=== PATIENT | male | born 1940 | race Caucasian/White ===

== ENCOUNTER 2024-12-09 14:06 | Outpatient (CLI) | payer MEDICARE, SELFPAY ==
[2024-12-09 15:15] LABS: Anion Gap 14.0 mEq/L (5-15); Blood Urea Nitrogen 43 mg/dl (9-20); Calcium 9.2 mg/dl (8.4-10.2); Carbon Dioxide 18 mmol/L (22.0-30.0); Chloride 106 mmol/L (98-107); Creatinine,Serum 3.40 mg/dl (0.66-1.25); Estimated Glomerular Filt Rate 17 ml/min (>60); GFR (African American) 21 ML/MIN (>60); Glucose 121 mg/dl (74-100); Magnesium 1.7 mg/dl (1.6-2.3); Potassium 4.0 mmoL/L (3.5-5.1); Sodium 134 mmol/L (136-145)
== END 2024-12-09 23:59 | disposition home or self-care (01) ==
LOC: LAB 14:07
PROVIDERS: PCP Family Medicine; Visit Provider Internal Medicine
DX: I10 Essential (primary) hypertension (principal)
CPT/HCPCS: 36415; 80048; 83735

== ENCOUNTER 2024-12-22 11:29 | Outpatient (CLI) | payer MEDICARE, SELFPAY ==
--- NOTE | 2024-12-22 | CA_ITS ---
APPROVED REPORT Exam: Pharmacologic Technologist: Amina Aleln Ht: 6 ft 0 in Wt: 189 lbs BSA: 2.08 m2 HR: 67 bpm BP: 184/70 mmHg Stress Test Details Test: Lexiscan HR Resting HR: 67 bpm Max Heart Rate (APMHR): 137.357457 bpm Max HR Achieved: 93 bpm Target HR (85% APMHR): 116.873528 bpm % of APMHR: 67.88 Recovery HR: 86 bpm BP Resting BP: 184.0/70.0 mmHg Max BP: 186.0/80.0 mmHg Recovery BP: 180.0/79.0 mmHg ECG Resting ECG: Normal sinus rhythm Stress ECG Conclusion Symptoms: None Arrhythmias/Ectopy: PAC's, PVC's ST-T Changes: < 1.[address] segment changes Conclusion: Non-diagnostic Lexiscan stress. Electronically signed by : Genie Tian MD 12/25/2024 15:35:21
--- OUTSIDE RECORDS SUMMARY | 2024-12-22 11:31 | XMS_ITS | Continuity of Care Document ---
Author Organization [facility] Address [address] [place] [address] Assessment No assessment recorded. Plan of Treatment Reminders Order Date Submit Date Provider Last Modified By Organization Details Last Modified Time Details Appointments ESTABLISH ED PT 30 2024 10:00A M Marcelina Longo APRN Not available Not available Not available Lab None recorded. Referral None recorded. Procedures None recorded. Surgeries None recorded. Imaging XR, chest, 2 view 2024 025 [facility] Sander Setter, [address] [place] [address] , [place], [address], 11/24/2024 15:34:09 Medication Orders None recorded. Patient TargetsNo targets recorded. Patient Instructions Encounter Date Encounter Id Patient Instructions Last Modified By Organization Details Last Modified Time 11/24/2024 [id number] When You Want to Lose Weight: Care Instructions [email or web address] Not available 11/24/2024 13:27:57 Reason for Referral None Reported. Results Created Date Observation Date Name Description Value Unit Range Abnormal Flag Note LastModifiedBy Organization Detail LastModifiedTime 11/25/19 25 XR, chest , 2 view No observ ation record ed. Ursa Sander Setter [address] [place] [address] , [place], [address], 11/24/2024 16:35:31 Result Notes None recorded. Problems Name Problem SNOMED Code Status Onset Date Resolution Date Notes Provider Name and Address Organization Details Recorded Time Essential hypertens ion 22075035 Active 2015 Not Available [facility] 3 11:37:22 Deep venous thrombosi s 001368914 Active 2015 Not Available [facility] 3 11:37:22 Type 2 diabetes mellitus 10472008 Completed 201505/23/2021 Marcelina Longo, [employer] [address], [place], [address] , [place] - [facility] 1 10:42:42 Hyperlipi demia 68361551 Active 2015 Not Available [facility] 3 11:37:22 Impotence Active 2015 Not Available [facility] 3 11:37:22 Long-term current use of anticoagu lant 600816215 Active 2015 Not Available [facility] 3 11:37:22 Obesity 184243483 Active 2015 Not Available [facility] 3 11:37:22 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 Not Available [facility] 3 11:37:22 Periphera l vascular disease 252516948 Active 2015 Not Available [facility] 3 11:37:22 Pulmonary embolism 58647037 Completed 201504/08/2016 Paula Gee [place], [place] - [facility] 6 13:01:47 Vitamin D deficienc y 41959894 Active 2020 Not Available [facility] 3 11:37:22 Hyperglyc emia due to type 2 diabetes mellitus 43735685503 9109 Active 2020 Not Available [facility] 3 11:37:22 Chronic kidney disease stage 3 388435523 Active 2020 Not Available [facility] 3 11:37:22 Chronic ki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 35303778229 5 Active 2020 Not Available [facility] 3 11:37:22 Mixed hyperlipi demia 794996324 Active 2020 Not Available [facility] 3 11:37:22 History of deep vein thrombosi s 702670870 Active 2020 Not Available [facility] 3 11:37:22 History of pulmonary embolus 839898115 Active 2020 Not Available [facility] 3 11:37:22 Benign essential hypertens ion 8152741 Active 2020 Not Available [facility] 3 11:37:22 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 Procedures Surgical History Date Name Laterality Status Provider Name and Address Organization Details Recorded Time 09/22/19 25 A1C level 8.0 to 9.0 completed Clive Sung [place] - [facility] 09/21/2024 14:59:34 05/19/20 24 Advance Care Planning completed Paula Hay [place] - [facility] 05/19/2024 12:54:25 05/19/20 24 Functional Status Assessed completed Paula Hay [place] [facility] 05/19/2024 12:54:25 01/21/20 24 Positive Microalbumin completed Clive Sung [place] - [facility] 01/21/2024 10:44:25 01/21/20 24 A1C level 6.9 and below completed Clive Sung [place] - [facility] 01/21/2024 10:48:27 10/22/19 24 A1C level 6.9 and below completed Clive Sung [place] - [facility] 10/22/2023 13:05:51 07/24/19 24 A1C level 8.0 to 9.0 completed Clive Sung [place] - [facility] 07/24/2023 11:56:27 04/08/20 23 A1C level 6.9 and below completed Clive Sung [place] - [facility] 04/08/2023 11:20:15 09/05/19 23 Medication Reconcilliation completed Paula Hay [place] [facility] 09/04/2022 13:11:20 06/13/19 23 A1C level 7.0 to 7.9 completed Clive Pineda [place] - [facility] 06/13/2022 11:10:06 03/06/20 22 A1C level 7.0 to 7.9 completed Clive Pineda [place] - [facility] 03/06/2022 13:11:24 12/04/19 22 A1C level 7.0 to 7.9 completed Clive Pineda [place] - [facility] 12/03/2021 14:19:16 11/29/19 22 Cerumen Removal completed Giovanni Glass MD [address], [place], [address] [place] - [facility] 11/28/2021 10:57:35 08/30/19 22 Positive Microalbumin completed Clive Pineda [place] - [facility] 08/29/2021 09:20:08 08/30/19 22 A1C level 7.0 to 7.9 completed Clive [place]ineda [place] - [facility] 08/29/2021 09:23:03 05/23/20 21 A1C level 7.0 to 7.9 completed Clive Pineda [place] - [facility] 05/23/2021 10:41:28 02/22/20 21 A1C level 7.0 to 7.9 completed Clive [place]ineda [place] [facility] 02/21/2021 08:38:20 11/03/19 21 A1C level 7.0 to 7.9 completed Myah [place] - [facility] 11/02/2020 13:15:09 08/25/19 21 Diastolic B/P less than 80 mm Hg completed Paula Gee [place] [facility] 08/24/2020 09:28:23 08/25/19 21 Systolic B/P 130-139 mm Hg completed Paula Gee [place] [facility] 08/24/2020 09:28:20 08/01/19 21 Diastolic B/P less than 80 mm Hg completed Myah [place] [facility] 08/01/2020 16:31:17 08/01/19 21 Systolic B/P 130-139 mm Hg completed [place]ah [place] [facility] 08/01/2020 16:31:11 08/01/19 21 A1C level 7.0 to 7.9 completed Myah [place] - [facility] 08/01/2020 16:34:05 07/26/19 21 Systolic B/P less than 130 mm Hg completed Paula Hay [place] [facility] 07/26/2020 09:04:40 07/26/19 21 Diastolic B/P less than 80 mm Hg completed Paula [place] [facility] 07/26/2020 09:04:45 05/25/20 20 Diastolic B/P less than 80 mm Hg completed Paula Hay [place] [facility] 05/25/2020 09:38:40 05/25/20 20 Systolic B/P 130-139 mm Hg completed Paula [place] [facility] 05/25/2020 09:38:35 04/18/20 20 Systolic B/P less than 130 mm Hg completed Myah [place] [facility] 04/18/2020 16:34:12 04/18/20 20 Diastolic B/P less than 80 mm Hg completed Myah [place] [facility] 04/18/2020 16:34:19 04/18/20 20 A1C level 7.0 to 7.9 completed Myahaljeo [place] - [facility] 04/18/2020 16:36:39 03/22/20 20 Systolic B/P less than 130 mm Hg completed Paula Hay [place] [facility] 03/22/2020 10:51:22 03/22/20 20 Diastolic B/P 80-89 mm Hg completed Paula [place] [facility] 03/22/2020 10:51:25 02/23/20 20 Systolic B/P less than 130 mm Hg completed Paula [place] [facility] 02/23/2020 10:56:58 02/23/20 20 Diastolic B/P less than 80 mm Hg completed Paula [place] [facility] 02/23/2020 10:57:03 01/20/20 20 Systolic B/P less than 130 mm Hg completed Paula Hay [place] [facility] 01/20/2020 13:22:19 01/20/20 20 Diastolic B/P less than 80 mm Hg completed Paula Hay [place] [facility] 01/20/2020 13:22:23 12/16/19 20 Systolic B/P less than 130 mm Hg completed Paula Hay [place] [facility] 12/16/2019 13:18:38 12/16/19 20 Diastolic B/P less than 80 mm Hg completed Paula Hay [place] [facility] 12/16/2019 13:18:42 11/17/19 20 Systolic B/P less than 130 mm Hg completed Paula Hay [facility] 11/17/2019 13:40:30 11/17/19 20 Diastolic B/P less than 80 mm Hg completed Paula Hay [facility] 11/17/2019 13:40:34 10/08/19 20 Systolic B/P less than 130 mm Hg completed Paulapita MARIEE [facility] 10/08/2019 13:43:56 10/08/19 20 Diastolic B/P less than 80 mm Hg completed Paula Hay [facility] 10/08/2019 13:44:01 09/08/19 20 Systolic B/P less than 130 mm Hg completed Paulapita MARIEE [facility] 09/08/2019 12:57:34 09/08/19 20 Diastolic B/P less than 80 mm Hg completed Paulapita MARIEE [facility] 09/08/2019 12:57:39 08/11/19 20 Systolic B/P less than 130 mm Hg completed Paulapita MARIEE [facility] 08/11/2019 13:09:51 08/11/19 20 Diastolic B/P 80-89 mm Hg completed Paulapita MARIEE [facility] 08/11/2019 13:09:55 06/10/19 20 Systolic B/P less than 130 mm Hg completed Paulapita MARIEE [facility] 06/10/2019 12:57:49 06/10/19 20 Diastolic B/P 80-89 mm Hg completed Paulapita MARIEE [facility] 06/10/2019 12:57:53 10/25/19 18 Advance Care Planning completed Corine Welch RN [address], [place], [address], [facility] 10/24/2017 08:56:49 Cataract Surgery completed Corine Welch RN [address], [place], [address], [facility] 10/24/2017 09:14:03 Imaging Results None recorded. Procedure Notes None recorded. Medical Equipment None Reported. Allergies No known drug allergies Medications Name Sig Start Date Stop Date Status Note LastModified by Organization Details LastModified Time furosemid e 40 mg tablet Take 1 tablet every day by oral route. active Not Available Not Available No t Available metformin 500 mg tablet take 2 tablets (1,000 mg) by oral route 2 times per day with morning and evening meals for 30 days 02/13 completed metformi n 500 mg oral tablet;R ecorded Status: Recorded on: 05/28/20 12 10:25AM; Disconti nued Status: Disconti nued on: 02/14/20 16 9:04AM;U ser: grossert ;Est. Completi on: 08/27/19 13 Not Available Not Available Not Available carvedilo l 25 mg tablet Take 1 tablet twice a day by oral route. 05/19 completed Not Available Not Available Not Available carvedilo l 12.5 mg tablet TAKE ONE TABLET BY MOUTH TWICE DAILY with food 08/18 completed Not Available Not Available Not Available Neurontin 300 mg capsule 1 - 2 tid for back pain 02/13 completed Neuronti n 300 mg oral capsule; Prescrib e Status: Prescrib ed on: 10/23/19 13 12:00AM; Disconti nued Status: Disconti nued on: 02/14/20 16 9:04AM;U ser: grossert ;Est. 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.52) ;Pharmac yVerifie d: 10/23/19 13 4:45PM Not Available Not Available Not Available aspirin 325 mg tablet take 1 tablet (325 mg) by oral route once daily 11/12 completed aspirin 325 mg oral tablet;R ecorded Status: Recorded on: 08/02/19 09 2:44PM;D iscontin ued Status: Disconti nued on: 11/13/19 12 9:59AM;U ser: keefk Not Available Not Available Not Available glyburide 5 mg tablet take 1 tablet (5 mg) by oral route 2 times per day before meals 05/22 completed glyburid e 5 mg oral tablet;R ecorded Status: Recorded on: 02/14/20 16 9:04AM;U ser: haym Not Available Not Available Not Available Glucovanc e 2.5 mg-500 mg tablet take 1 tablet by oral route 2 times per day with meals for 90 days 01/16 completed Glucovan ce 2.5-500 mg oral tablet;R ecorded Status: Recorded on: 01/11/20 11 3:55PM;D iscontin ued Status: Disconti nued on: 01/17/20 11 10:04AM; User: clover;Est . Completi on: 07/09/19 12 Not Available Not Available Not Available clarithro mycin 500 mg tablet take 1 tablet (500 mg) by oral route 2 times per day for 10 days 02/03 completed clarithr omycin 500 mg oral tablet;R ecorded Status: Recorded on: 06/14/19 09 3:27PM;D iscontin ued Status: Disconti nued on: 02/04/20 09 12:54PM; User: tiffanie De La OEst. Completi on: 06/24/19 09;Print ed: 06/14/19 09 Not Available Not Available Not Available Glucovanc e 5 mg-500 mg tablet take 1 tablet by oral route 2 times per day with meals for 30 days 01/10 completed Glucovan ce 5-500 mg oral tablet;R ecorded Status: Recorded on: 01/10/20 11 1:39PM;D iscontin ued Status: Disconti nued on: 01/11/20 11 3:55PM;U ser: clover;Est . Completi on: 04/09/20 11 Not Available Not Available Not Available Keflex 500 mg capsule take 1 capsule (500 mg) by oral route every 12 hours for 10 days 05/12 completed Keflex 500 mg oral capsule; Recorded Status: Recorded on: 04/18/20 08 11:01AM; Disconti nued Status: Disconti nued on: 05/12/20 08 3:46PM;U ser: rodoEs t. Completi on: 04/28/20 08;Print ed: 04/18/20 08 Not Available Not Available Not Available Avelox 400 mg tablet take 1 tablet (400 mg) by oral route once daily for 10 days 10/15 completed Avelox 400 mg oral tablet;R ecorded Status: Recorded on: 10/16/19 12 9:37AM;D iscontin ued Status: Disconti nued on: 10/16/19 12 11:38AM; User: [email or web address] ;Est. Grettai on: 11/05/19 12;Indic ation: Bronchit is, Acute - (466.0); Printed: 10/16/19 12 Not Available Not Available Not Available glipizide 10 mg tablet TAKE ONE TABLET BY MOUTH TWICE DAILY with meals 2024 active Not Available Not Available Not Avai lable prednison e 20 mg tablet take 1 tablet (20 mg) by oral route once daily for 5 days 08/03 completed predniso ne 20 mg oral tablet;R ecorded Status: Recorded on: 06/11/19 11 1:37PM;D iscontin ued Status: Disconti nued on: 08/03/19 11 9:03AM;U ser: luis alberto; Est. Completi on: 06/16/19 11;Print ed: 06/11/19 11 Not Available Not Available Not Available lovastati n 40 mg tablet TAKE ONE TABLET BY MOUTH EVERY EVENING WITH FOOD 2023 active Not Available Not Available Not Avai lable AndroGel 1 % (25 mg/2.5 gram) transderm al gel packet 4 pumps daily 05/12 completed AndroGel 1 % (25 mg/2.5gr am) transder mal gel in packet;R ecorded Status: Recorded on: 03/12/20 08 10:03PM; Disconti nued Status: Disconti nued on: 05/12/20 08 3:46PM;U ser: keatinga Not Available Not Available Not Available Zithromax Z-Jonah 250 mg tablet take 2 tablets (500 mg) by oral route once daily for 3 days 11/24 completed Not Available Not Available Not Available Flonase 50 mcg/actua tion nasal spray,william pension inhale 1 spray (50 mcg) in each nostril by intranas al route 2 times per day for 30 days 02/13 completed Flonase 50 mcg/actu ation nasal spray,savage spension ;Recorde d Status: Recorded on: 09/16/19 14 3:25PM;D iscontin ued Status: Disconti nued on: 02/14/20 16 9:04AM;U ser: haym;Est . Completi on: 03/14/20 14 Not Available Not Available Not Available hydralazi ne 25 mg tablet Take 1 tablet 3 times a day by oral route. 08/18 completed Not Available Not Available Not Available metronida zole 500 mg tablet Take 1 tablet every 6 hours by oral route. 08/10 completed Not Available Not Available Not Available ciproflox acin 500 mg tablet take 1 tablet (500 mg) by oral route 2 times per day for 10 days 12/19 completed Not Available Not Available Not Available omeprazol e 40 mg capsule,d elayed release TAKE ONE CAPSULE BY MOUTH EVERY DAY 05/19 completed Not Available Not Available Not Available aspirin 81 mg tablet,de layed release Take 81 mg by oral route. 05/19 completed Not Available Not Available Not Available ondansetr on 8 mg disintegr ating tablet Place 1 tablet every 6-8 hours by translin gual route as needed. 2019 active Not Available Not Available Not Avai lable Lipitor 20 mg tablet take 1 tablet (20 mg) by oral route once daily for 90 days 07/24 completed Lipitor 20 mg oral tablet;R ecorded Status: Recorded on: 07/24/19 12 9:16AM;D iscontin ued Status: Disconti nued on: 07/24/19 12 4:18PM;U ser: haym;Est . Completi on: 01/20/20 12 Not Available Not Available Not Available warfarin 4 mg tablet TAKE ONE TABLET BY MOUTH EVERY DAY 09/04 completed Not Available Not Available Not Available Macrobid 100 mg capsule Take 1 capsule every 12 hours by oral route. 11/16 completed Not Available Not Available Not Available Zanaflex 4 mg tablet take 1 tablet (4 mg) by oral route every 8 hours as needed not to exceed 3 doses in 24 hours for 10 days 02/13 completed Zanaflex 4 mg oral tablet;P rescribe Status: Prescrib ed on: 10/18/19 16 10:20AM; Disconti nued Status: Disconti nued on: 02/14/20 16 9:04AM;U ser: grossert ;Est. Completi on: 12/17/19 16;Indic ation: Muscle Spasm - (13.7288 50);Phar Raquel fied: 10/18/19 16 10:20AM Not Available Not Available Not Available tamsulosi n 0.4 mg capsule TAKE ONE CAPSULE BY MOUTH ONCE DAILY 30 minutes followin g THE same meal each DAY active Not Available Not Available No t Available baclofen 10 mg tablet take 1 tablet (10 mg) by oral route 4 times per day for 30 days 02/13 completed baclofen 10 mg oral tablet;R ecorded Status: Recorded on: 10/03/19 13 4:04PM;D iscontin ued Status: Disconti nued on: 02/14/20 16 9:04AM;U ser: clover;Est . Completi on: 11/02/19 13 Not Available Not Available Not Available amlodipin e 10 mg tablet Take 1 tablet every day by oral route. 12/14 completed BP was running low. Not Available Not Available Not Available metformin 1,000 mg tablet take 1 tablet by oral route 2 times a day for 30 days 09/05 completed metformi n 1,000 mg oral tablet;R ecorded Status: Recorded on: 07/03/19 12 2:24PM;D iscontin ued Status: Disconti nued on: 09/06/19 12 11:49AM; User: clover;Est . Completi on: 12/30/19 12;Indic ation: Type 2 Diabetes Mellitus - ( 00) Not Available Not Available Not Available Hyzaar 100 mg-25 mg tablet 1 po qd 07/18 completed Hyzaar 100-25 mg oral tablet;P rescribe Status: Prescrib ed on: 01/08/20 14 4:26PM;D iscontin ued Status: Disconti nued on: 07/18/19 15 1:27PM;U ser: earlywin ec;Est. Completi on: 07/06/19 15;Pharm acyVsunitaf ied: 01/08/20 14 4:26PM Not Available Not Available Not Available triamcino lone acetonide 0.1 % topical ointment APPLY A THIN LAYER TO THE AFFECTED AREA(S) BY TOPICAL ROUTE 2 TIMES PER DAY as needed 2024 active Not Available Not Available Not Avai lable clotrimaz ole-betam ethasone 1 %-0.05 % topical cream APPLY TO THE AFFECTED AND SURROUND ING AREAS OF SKIN BY TOPICAL ROUTE 2 TIMES PER DAY IN THE MORNING AND EVENING FOR 2 WEEKS 05/19 completed Not Available Not Available Not Available nitroglyc desiree 0.4 mg sublingua l tablet DISSOLVE 1 TABLET UNDER THE TONGUE EVERY 5 MINUTES NEEDED FOR CHEST PAIN. DO NOT EXCEED A TOTAL OF 3 DOSES IN 15 MINUTES. 2024 active Not Available Not Available Not Avai lable Levaquin 500 mg tablet take 1 tablet (500 mg) by oral route once daily for 10 days 07/02 completed Not Available Not Available Not Available Viagra 100 mg tablet take 1 tablet (100 mg) by oral route once daily as needed approxim ately 1 hour before sexual activity for 10 days 11/12 completed Viagra 100 mg oral tablet;R ecorded Status: Recorded on: 08/31/19 10 11:19AM; Disconti nued Status: Disconti nued on: 11/13/19 12 9:59AM;U ser: grossert ;Est. Completi on: 12/29/19 10;Indic ation: Erectile Dysfunct ion - (10.6078 40);Prin hola: 08/31/19 10 Not Available Not Available Not Available Nasonex 50 mcg/actua tion [place] 1 sniff bilat bid 09/15 completed Nasonex 50 mcg/actu ation nasal spray,no n-aeroso l;Prescr yvonne Status: Prescrib ed on: 09/16/19 14 11:17AM; Disconti nued Status: Disconti nued on: 09/16/19 14 3:25PM;U ser: grossert ;Est. Completi on: 03/14/20 14;Indic ation: Atopic Rhinitis - (4779 );Phar Raquel fied: 09/16/19 14 11:17AM Not Available Not Available Not Available Vitamin D2 1,250 mcg (50,000 unit) capsule TAKE ONE CAPSULE BY MOUTH twice a WEEK 05/19 completed Not Available Not Available Not Available dexametha sone sodium phosphate 10 mg/mL injection solution Take 1 mL every day by injectio n route for 1 day. 11/24 completed Not Available Not Available Not Available amoxicill in 875 mg-potass ium clavulana te 125 mg tablet take 1 tablet by oral route every 12 hours for 10 days 10/10 completed Not Available Not Available Not Available neomycin- polymyxin -hydrocor t 3.5 mg-10,000 unit/mL-1 % ear drops,william p instill 4 drops into affected ear(s) by otic route 3 times per day for 10 days 06/11 completed Not Available Not Available Not Available Bactrim DS 800 mg-160 mg tablet take 1 tablet by oral route 2 times per day for 10days 01/10 completed Not Available Not Available Not Available TobraDex 0.3 %-0.1 % eye drops,william pension instill 1 drop into affected eye(s) by ophthalm ic route every 6 hours 08/30 completed TobraDex 0.3-0.1 % ophthalm ic drops,savage spension ;Recorde d Status: Recorded on: 07/10/19 10 9:33AM;D iscontin ued Status: Disconti nued on: 08/31/19 10 11:02AM; User: james;In 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 04/18 completed Not Available Not Available Not Available Avandamet 2 mg-500 mg tablet take 1 tablet by oral route 2 times per day with meals for 30 days 01/09 completed Avandame t 2-500 mg oral tablet;R ecorded Status: Recorded on: 12/27/19 11 3:19PM;D iscontin ued Status: Disconti nued on: 01/10/20 11 9:10AM;U ser: grossert ;Est. Completi on: 06/24/19 12;Print ed: 12/27/19 11 Not Available Not Available Not Available Avodart 0.5 mg capsule take 1 capsule (0.5 mg) by oral route once daily for 30 days 04/18 completed Avodart 0.5 mg oral capsule; Recorded Status: Recorded on: 04/18/20 08 10:59AM; Disconti nued Status: Disconti nued on: 04/18/20 08 11:05AM; User: Tima tSam Completi on: 07/17/19 09;Indic ation: Symptoma tic Prostati c Hypertro phy - (10.6000 01);Prin hola: 04/18/20 08 Not Available Not Available Not Available Novolog FlexPen U-100 Insulin aspart 100 unit/mL (3 mL) subcutane ous Inject 6 units twice a day by subcutan eous route. 08/10 completed Not Available Not Available Not Available Allergy Relief (loratadi ne) 10 mg tablet TAKE ONE TABLET BY MOUTH ONCE DAILY 2024 active Not Available Not Available Not Avai lable fenofibra te 160 mg tablet TAKE ONE TABLET BY MOUTH EVERY DAY 11/24 completed Not Available Not Available Not Available Actoplus MET 15 mg-500 mg tablet take 1 tablet by oral route 2 times per day for 90 days 01/09 completed Actoplus MET 15-500 mg oral tablet;R ecorded Status: Recorded on: 01/10/20 11 9:10AM;D iscontin ued Status: Disconti nued on: 01/10/20 11 1:39PM;U ser: haym;Est . Completi on: 07/08/19 12 Not Available Not Available Not Available losartan 100 mg-hydroc hlorothia zide 12.5 mg tablet Take ONE tablet by MOUTH DAILY active Not Available Not Available No t Available Mucinex D 60 mg-600 mg tablet,ex tended release take 1 tablet by oral route every 12 hours as needed for 10 days 08/03 completed Mucinex D 60-600 mg oral tablet extended release 12 hr;Recor ded Status: Recorded on: 12/29/19 10 3:20PM;D iscontin ued Status: Disconti nued on: 08/03/19 11 9:03AM;U ser: grossert ;Est. Completi on: 02/07/20 10;Print ed: 12/29/19 10 Not Available Not Available Not Available Levemir U-100 Insulin 100 unit/mL subcutane ous solution inject by subcutan eous route per prescrib er's instruct ions. Insulin dosing requires individu alizatio n. 04/22 completed Levemir 100 unit/mL subcutan eous solution ;Recorde d Status: Recorded on: 02/14/20 16 9:04AM;U ser: haym Not Available Not Available Not Available Januvia 100 mg tablet take 1 tablet (100 mg) by oral route once daily for 30 days 02/13 completed Januvia 100 mg oral tablet;R ecorded Status: Recorded on: 06/04/20 12 10:15AM; Disconti nued Status: Disconti nued on: 02/14/20 16 9:04AM;U ser: grossert ;Est. Completi on: 12/02/19 13;Indic ation: Type 2 Diabetes Mellitus - (032500 00);Prin hola: 06/04/20 12 Not Available Not Available Not Available Lantus Solostar U-100 Insulin 100 unit/mL (3 mL) subcutane ous pen Inject 30 units every day by subcutan eous route at bedtime. active Not Available Not Available No t Available Vitamin D 2,000 unit capsule Take 2 capsules every day by oral route. active Not Available Not Available No t Available Vitamin D3 50 mcg (2,000 unit) capsule Take 1 capsule every day by oral route. 09/25 completed Not Available Not Available Not Available Xarelto 20 mg tablet TAKE ONE TABLET BY MOUTH EVERY DAY 2024 active Not Available Not Available Not Avai lable Victoza 2-Jonah 0.6 mg/0.1 mL (18 mg/3 mL) subcutane ous pen injector inject 0.2 millilit er (1.2 mg) by subcutan eous route once daily 04/18 completed Victoza 2-Jonah 0.6 mg/0.1 mL (18 mg/3 mL) subcutan eous pen injector ;Recorde d Status: Recorded on: 08/26/19 14 9:00AM;U ser: haym Not Available Not Available Not Available Bydureon 2 mg/0.65 mL subcutane ous pen injector Inject by subcutan eous route. 04/[address] ED BY DR[address] ROMAN Not Available Not Available Not Available Easy Comfort Pen Haskins 32 gauge x 5/32 USE DIRECTED DAILY 2021 active Not Available Not Available Not Avai lable Accu-Chek Guide test strips USE TO test blood sugar ONCE DAILY 2024 active Not Available Not Available Not Avai lable Ozempic 0.25 mg or 0.5 mg (2 mg/1.5 mL) subcutane ous pen injector Inject 0.5 mg every week by subcutan eous route as directed for 90 days. 01/02 completed Not Available Not Available Not Available Ozempic 1 mg/dose (4 mg/3 mL) subcutane ous pen injector INJECT 1mg UNDER hte SKIN EVERY WEEK 2024 active Not Available Not Available Not Avai lable Ozempic 2 mg/dose (8 mg/3 mL) subcutane ous pen injector Inject 2 mg every week by subcutan eous route. 10/21 completed Not Available Not Available Not Available Vitals Date Recorded Body height Body mass index (BMI) Body weight Body temperature Heart rate Oxygen saturation Oxygen saturation in Arterial blood by Pulse oximetry Respiratory rate Systolic And Diastolic Provider Name and Address Organization Details Last Updated DateTime 5 182.88 cm 25.8 kg/m2 75631.5 5 g 98.5 [degF] 100 /min 97 % 97 % 18 /min 110/60 mm[Hg] Paula [place] - [facility] 5 13:09:19 Social History Question Answer Notes LastModified by Organization Details LastModified Time Tobacco Smoking Status Former Smoker Paula sheridan [place] - [facility] 04/08/2016 13:03:41 Able To Swim? Yes Information not available 04/10/2016 Do You Have An Advance Directive? No Declines Info Information not available 10/24/2017 Do You Wear A Helmet When Biking? Yes Information not available 04/08/2016 Are You Blind Or Do You Have Difficulty Seeing? No Information not available 06/14/2016 What Is Your Level Of Caffeine Consumption? None Information not available 04/10/2016 How Much Tobacco Do You Chew? None Information not available 04/08/2016 In The 14 Days Before Symptom Onset, Have You Had Close Contact With A Laboratory-confi rmed COVID-19 While That Case Was Ill? No Information not available 11/13/2023 In The 14 Days Before Symptom Onset, Have You Had Close Contact With A Person Who Is Under Investigation For COVID-19 While That Person Was Ill? No Information not available 11/13/2023 Have You Been To An Area Known To Be High Risk For COVID-19? No Information not available 11/13/2023 Are You Deaf Or Do You Have Serious Difficulty Hearing? Yes Information not available 10/24/2017 What Type Of Diet Are You Following? DIABETIC Information not available 04/08/2016 Which Illicit Or Recreational Drugs Have You Used? No Information not available 04/08/2016 Have You Processed Blood Or Body Fluids From An Ebola Virus Disease Patient Without Appropriate PPE? No Information not available 11/13/2023 Do You Reside In Or Have You Traveled To An Area Where Ebola Virus Transmission Is Active? No Information not available 11/13/2023 What Is The Highest Grade Or Level Of School You Have Completed Or The Highest Degree You Have Received? [id number] Information not available 01/18/2021 Swimming/diving No Informati on not available 04/10/2016 Have There Been Any Changes To Your Family Or Social Situation? No Information not available 01/18/2021 What Is The Fluoride Status Of Your Home? Fluoridated Information not available 02/15/2021 When Did You Quit Smoking? 6-10yearssineric nunez Information not available 11/07/2016 Hard Of Hearing Or Deaf In One Or Both Ears? No Information not available 04/08/2016 Have You Recently Or Are You Planning To Travel To An Area With Zika Virus? No Information not available 11/13/2023 Single Or Multi-level Home/work? Single Level Home Information not available 10/24/2017 Legally Blind In One Or Both Eyes? No Information not available 04/08/2016 Live Alone Or With Others? With Others Information not available 04/08/2016 What Was The Date Of Your Most Recent Tobacco Screening? 11/24/2024 Information not available 11/24/2024 How Many Children Do You Have? 2 Information not available 04/10/2016 What Is Your Current Pack Years? 30ormorepaestefanyar s Information not available 03/06/2022 Do You Use Protection During Sex? No Information not available 04/08/2016 Do You Use Protection Against STDs? No Information not available 06/21/2021 What Is Your Relationship Status? Information not available 04/08/2016 Seat Belts Used Routinely Yes Information not available 04/08/2016 Are You Sexually Active? No Information not available 09/26/2022 Smoke Alarm In Home Yes Information not available 04/10/2016 Do You Have Smoke And Carbon Monoxide Detectors In Your Home? Yes Information not available 01/18/2021 At What Age Did You Start Smoking Tobacco? 16 Information not available 04/10/2016 Are You Passively Exposed To Smoke? No Information not available 04/10/2016 How Much Tobacco Do You Smoke? No Information not available 04/08/2016 General Stress Level Low Information not available 04/10/2016 Do You Use Sunscreen Routinely? No Information not available 04/10/2016 Has Tobacco Cessation Counseling Been Provided? No Information not available 08/18/2024 On What Date Was Tobacco Cessation Counseling Provided? 09/21/2024 Information not available 09/21/2024 How Many Years Have You Smoked Tobacco? 50 Information not available 04/10/2016 Do You Have Difficulty Walking Or Climbing Stairs? No Information not available 06/14/2016 What Contraceptive Method Was Reported At Start Of This Visit? None Information not available 06/21/2021 What Contraceptive Method Was Reported At End Of This Visit? None Information not available 06/21/2021 Do You Want To Talk About Contraception Or Prevention During Your Visit Today? No - I Do Not Want To Talk About Contraception Today Because I Am Here For Something Else Information not available 06/21/2021 What Is Your Reason For Having No Contraceptive Method At Start Of This Visit? Abstinence Information not available 01/02/2023 What Is Your Reason For Having No Contraceptive Method At End Of This Visit? Abstinence Information not available 01/02/2023 Sex: Male Functional Status Question Answer Note LastModified by Organizat ion Details LastModified Time How many times per week do you consume alcohol? Less than 1 time per week Information not available 09/04/2022 Do you or have you ever used smokeless tobacco? Never used smokeless tobacco Information not available 01/14/2019 Are you currently employed? No Information not available 04/08/2016 Do you have transportation difficulties? No Information not available 01/18/2021 Urinary incontinence assessment performed? Yes Information not available 10/24/2017 Are you able to care for yourself? Yes Information n ot available 04/08/2016 Do you have difficulty dressing or bathing? No Information not available 06/14/2016 Do you or have you ever used e-cigarettes or vape? Never used electronic cigarettes Information not available 01/14/2019 What is your exercise level? None Information not available 04/10/2016 Do you use any illicit or recreational drugs? No Information not available 01/18/2021 Do you or have you ever used any other forms of tobacco or nicotine? No Information not available 01/18/2021 What is your level of alcohol consumption? Occasional Information not available 04/08/2016 Are you able to walk? YESWOREST Information not available 07/12/2016 Do you have difficulty doing errands alone? No Information not available 06/14/2016 What is your occupation? Retired Information not available 04/08/2016 Mental Status Question Answer Note LastModified by Organizat ion Details LastModified Time Do you feel stressed (tense, restless, nervous, or anxious, or unable to sleep at night)? [id number] Information not available 01/18/2021 Do you have difficulty concentrating, remembering or making decisions? No Information no t available 06/14/2016 Family History Relationship Description Onset Age of this Age Resolved Age Notes LastModified by Organization Details LastModified Time Maternal Grandfather Type 2 diabetes mellitus Not available 2015 13:03:02 Maternal Grandmother Type 2 diabetes mellitus Not available 2015 13:03:02 Paternal Grandmother Type 2 diabetes mellitus Not available 2015 13:03:02 Father Myocardial infarction Not available 04/08 13:03:19 Paternal Uncle Myocardial infarction Not available 04/08 13:03:19 Medical History Condition Response Pancreatitis N Coronary Artery Disease N Other N Gout N Atrial Fibrillation N congenital heart disease N Blood Diseases N Kidney Stones N Hyperthyroidism N Blood Transfusion N Rheumatoid arthritis N Erectile Dysfunction Y amputation N Skin Lesions N COPD N Depression N Pneumonia N Incontinence N Murmur N Edema N Alzheimer's Disease N Migraine Headaches N Tobacco Abuse N Anxiety Disorder N Hemorrhoids N Muscle, Joint, or Bone Problems N Obesity Y Vision or Eye Problems N Arthritis N Restless Leg Syndrome N Polyps N Infertility N Mental Disorder N Carpal Tunnel N Acid Reflux (GERD) N Cancer N Varicosities N Stroke N Tendonitis N Crohn's Disease N Hypercholesterolemia N Skin Cancer N Headaches N Fibromyalgia N Anal Fissure N Irritable Bowel Syndrome N Kidney Disease N Heart Problems N Ear or Hearing Problems N Hospitalizations N Gallstones N Kidney or Bladder Problems N Goiter N Acne N Skin Problems N Eating Disorder N Moser's Esophagus N Hypertriglyceridemia N MRSA exposure N Constipation N Embolism N Vitamin B12 Deficiency N Deviated Septum N Tuberculosis N AIDS/HIV N Myocardial Infarction N Asthma N Mitral Valve Disorders N Vertigo N Hepatitis N Thyroid Cancer N Neuropathy N Pulmonary Embolism Y History of DVT Y Herniated Disc N Chronic Ear Infections N Chicken Pox N Autism Spectrum Disorder (ASD) N Von Willebrands Disease N Thrombophilias N Breast Cancer N Hernia N Plantar Fasciitis N Hospital Admission Other Than N Hypothyroidism N Lung Disease N Defects or Inherited Disease N Developmental or Behavioral Disorders N Breast Problem N Difficulty Swallowing N Ovarian Cyst N Anesthesia Complications N Testosterone Deficiency N Meniere's disease N Head Injury/Concussion N Interstitial Cystitis N Congenital Anomalies N Hypoglycemia N Blood clot N Vitamin D Deficiency N Cellulitis N Endometriosis N Fracture N Bladder or Kidney Problems N Liver Disease N Panic Disorder N Schizophrenia N Concussion N Spina Bifida N Allergies/Hayfever N Osteoarthritis N Parkinson's Disease N Disc Protrusion N STI N Esophagitis N Angina N Thyroid Problems N GI Problems N ADD/ADHD N Anemia N Multiple Sclerosis N Abnormal PAP N Lumbago N Mental Illness N Psychiatric Illness N Diabetes Y Ovarian Cancer N Bedwetting N Degenerative Disc Disease N Seizures/Epilepsy N Congestive Heart Failure (CHF) N Hyperlipidemia Y Syncope N Insomnia N Eczema N Abuse/Domestic Violence N Attention Deficient Disorder N Diverticulitis N Dementia N Ulcerative colitis N Cerebrovascular Disease N Depression N Guillain-[place] N Sleep Apnea N Aneurysm N Bronchitis N Heart Disease N Suicidal Ideation N Pre-Eclampsia N Hypertension Y Osteoporosis N Immunizations Vaccine Type Date Status Note Provider Nam e and Address Organization Details Recorded Time COVID-19, mRNA, LNP-S, PF, 100 mcg/0.5mL dose or 50 mcg/0.25mL dose 1 completed Radha Whittaker [place], [place] - [facility] 05/26/2024 10:16:32 COVID-19, mRNA, LNP-S, PF, 100 mcg/0.5mL dose or 50 mcg/0.25mL dose 1 completed Radha Whittaker [place], [place] - [facility] 05/26/2024 10:16:32 Influenza, split virus, trivalent, PF 2 completed Radha Whittaker [facility] 05/26/2024 10:16:32 Influenza, high-dose, quadrivalent, PF 0 completed Shahnaz Herman, [employer] [address], [place], [address], [place] - [facility] 03/14/2020 16:08:39 Influenza, high-dose, quadrivalent, PF 1 completed Giovanni Glass MD [address], [place], [address], [place] - [facility] 03/21/2021 14:31:50 influenza, unspecified formulation 0 completed Not Available [facility] 02/01/2023 11:37:23 influenza, unspecified formulation 1 completed Not Available [facility] 02/01/2023 11:37:23 influenza, unspecified formulation 2 [place] [facility] 05/26/2024 10:16:32 influenza, unspecified formulation 3 completed Not Available [facility] 02/01/2023 11:37:23 influenza, unspecified formulation 4 completed Not Available [facility] 02/01/2023 11:37:23 influenza, unspecified formulation 5 completed Not Available [facility] 02/01/2023 11:37:23 influenza, unspecified formulation 8 completed Not Available [facility] 02/01/2023 11:37:23 influenza, unspecified formulation 9 completed Not Available [facility] 02/01/2023 11:37:23 Influenza, split virus, quadrivalent, preservative 7 completed Not Available [facility] 06/26/2019 03:54:42 COVID-19, mRNA, LNP-S, PF, 100 mcg/0.5mL dose or 50 mcg/0.25mL dose 2 completed Giovanni Glass MD [address], [place], [address], [place] - [facility] 06/21/2021 11:12:07 Influenza, high-dose, quadrivalent, PF 2 completed Marcelina Longo, [employer] [address], [place], [address], [place] - [facility] 03/06/2022 13:31:11 Influenza, high-dose, quadrivalent, PF 3 completed Paula [place], [place] - [facility] 03/13/2023 09:48:17 Influenza, split virus, quadrivalent, preservative 6 completed Not Available [facility] 02/01/2023 11:37:23 zoster live 9 completed Not Available [facility] 02/01/2023 11:37:23 Influenza, high-dose, trivalent, PF 4 completed Debra Barajas MD [address], [place], [address], [place] - [facility] 03/09/2024 15:47:29 Tdap 4 completed Paula sheridan, [place] - [facility] 05/19/2024 16:57:05 Pneumococcal conjugate PCV20, polysaccharide NHP307 conjugate, adjuvant, PF 4 completed Paula [place], [place] - [facility] 05/19/2024 16:57:56 Influenza, high-dose, trivalent, PF 8 completed Not Available [facility] 06/26/2019 03:55:10 SARS-COV-2 (COVID-19) vaccine, UNSPECIFIED 1 completed Radha sheridan, [place] - [facility] 05/26/2024 10:16:32 SARS-COV-2 (COVID-19) vaccine, UNSPECIFIED 1 completed Radha [place], [place] - [facility] 05/26/2024 10:16:32 Influenza, high-dose, trivalent, PF 9 completed Not Available [facility] 06/26/2019 03:56:04 Past Encounters Encounter ID Performer Location Encounter Start Date Encounter Closed Date Diagnosis/Indication Diagnosis SNOMED-CT Code Diagnosis ICD10 Code Diagnosis Note [id number] Marcelina Longo APRN [address] [place] [address] 11/09/2024 14:16:39 11/09/2024 15:37:06 Hyperglycemia due to type 2 diabetes mellitus 7937928692 36228 E11.65 Benign ess ential hypertension 3137638 I10 Obesity 758107279 E66.9 Peripheral vascular disease 729640111 I73.9 Body mass index 25-29 - overweight 912216928 Z68.25 Peripheral neuropathy due to type 2 diabetes mellitus 4226288770 107 E11.42 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 5596173281 05 E11.22 Mixed hyperlipidemia 267 278759 E78.2 History of deep vein thrombosis 610232327 Z86.718 History of pulmonary embolus 310628300 Z86.711 Vitamin D deficiency 347 62593 E55.9 Iron defic iency anemia 56567083 D50.9 Prostate s pecific antigen above reference range 545582106 R97.20 Dizziness 593085715 R42 [id number] Giovanni Glass MD [address] 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 21 Hyperglyce nhan due to type 2 diabetes mellitus 9150796704 73215 E11.65 Vitamin D deficiency 347 92213 E55.9 Essential hypertension 91462923 I10 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 9490626350 05 E11.22 Hyperlipidemia 34600211 E78.5 Dyspnea on exertion 6084 5006 R06.09 Overweight in adulthood with body mass index of 25 or more but less than 30 070935647 Z68.25 Health Concerns Section Related Observation LastModified by Organization Detai ls LastModified Time None Recorded Concern Status LastModified by Organization Details LastModified Time None Recorded Payers Encounter Date Sequence Insurance Name Policy Number Policy Mcintyre Covered Member ID Mcintyre Member ID Guarantor Name 11/24/2024 1 [employer] (MEDICARE REPLACEMENT/A DVANTAGE - PPO) Owen Salazar [id number] Owen Salazar Notes Date Note Type Note Provider Name and Address Organization Details Recorded Time 11/24/2024 text/html C/O dyspnea with exertion. No chest pain, pressure, heaviness. Had abnormal CXR years ago and wants repeat. Dr. Pickard wanted to send to [place] for ht cath but he declined. Giovanni Glass MD [facility] [address], [place], [address], [place] - [facility] 11/24/2024 13:29:21
--- OUTSIDE RECORDS SUMMARY | 2024-12-22 11:31 | XMS_ITS | Data Portability ---
Author Organization [facility] Address [address] [place] [address] Assessment No assessment recorded. Plan of Treatment Reminders Order Date Submit Date Provider Last Modified By Organization Details Last Modified Time Details Appointments None recorde d. Lab None recorde d. Referral None recorde d. Procedures None recorde d. Surgeries None recorde d. Imaging XR, wrist 023 04/15/20 apostonLuz Maria [facility], [address] [place] [address] [place], [address], 3 11:25:37 XR, wrist 023 03/25/20 val [facility], [address] [place] [address] [place], [address], 3 13:17:14 Medication Orders None recorde d. Patient TargetsNo targets recorded. Patient InstructionsNo instructions recorded. Reason for Referral None Reported. Results Created Date Observation Date Name Description Value Unit Range Abnormal Flag Note LastModifiedBy Organization Detail LastModifiedTime 03/25/20 XR, wrist No observ ation record ed. [facility] [address] [place], [address], 03/25/2023 10:55:43 04/15/20 XR, wrist No observ ation record ed. [facility] [address] [place], [address], 04/15/2023 10:28:18 Result Notes None recorded. 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 Ceciliadayan Tony [place], [place] - [facility] - [place] & [place] 3 09:59:37 Benign essential hypertensio n 8071681 Active 2020 Cecilia Black [place] [facility] [place] [facility] [place] 3 09:59:37 Deep venous thrombosis 266101406 Active 2015 Cecilia Black [place] [facility] [place] [facility] [place] 3 09:59:37 Peripheral neuropathy due to type 2 diabetes mellitus 6115375640696 Active 2020 Cecilia Black [place], [place] - [facility] - [place] & [place] 3 09:59:37 History of deep vein thrombosis 769973503 Active 2020 Cecilia Black [place] [facility] [place] [facility] [place] 3 09:59:37 History of pulmonary embolus 216484268 Active 2020 Cecilia [place] - [facility] [place] 3 09:59:37 Warfarin monitoring status 767651720 Active 2016 Cecilia Chavo [place] - [facility] - [place] [facility] [place] 3 09:59:37 Mixed hyperlipide nhan 530470262 Active 2020 Cecilia Black null, [place] - [facility] - [place] & [place] 3 09:59:38 Vitamin D deficiency 67865950 Active 2020 Cecilia Black [place] [facility] - [place] [facility] [place] 3 09:59:38 Hyperglycem ia due to type 2 diabetes mellitus 1618334113714 09 Active 2020 Cecilia Black [place] [facility] [place] [facility] [place] 3 09:59:38 Peripheral vascular disease 360392756 Active 2015 Cecilia Black [place] [facility] - [place] & [place] 3 09:59:38 Obesity 345235266 Active 2015 KODI Ibarra [facility] [place] 3 09:59:38 Chronic kidney disease stage 3 543353233 Active 2020 KODI Ibarra [facility] - [facility] & [place] 3 09:59:38 Type 2 diabetes mellitus 72718459 Active 2015 KODI Ibarra [facility] - [facility] & [place] 3 09:59:38 Hyperlipide nhan 09823355 Active 2015 KODI Ibarra [facility] - [facility] & [place] 3 09:59:38 Pulmonary embolism 12893202 Active 2015 KODI Ibarra [facility] [place] 3 09:59:38 Essential hypertensio n 86652515 Active 2015 KODI Ibarra [facility] - [facility] & [place] 3 09:59:38 Long-term current use of anticoagula nt 883057768 Active 2015 KODI Ibarra - [facility] Vlad [facility] & [place] 3 09:59:38 Chronic ki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 294192525165 Active 2020 KODI Ibarra [facility] [place] 3 09:59:38 Notes:Some problems listed i n Document: #[id number] could not be added to this patient's chart. Please review this document and add these problems to the patient's chart manually as needed. Problem Notes None recorded. Medical Equipment None Reported. Allergies No known drug allergies Medications Name Sig Start Date Stop Date Status Note LastModified by Organization Details LastModified Time Flomax 0.4 mg capsule take 1 capsule (0.4 mg) by oral route once daily 1/2 hour following the same meal each day for 30 days 02/03 completed Not Available Not Available Not Available metformin 500 mg tablet take 2 tablets (1,000 mg) by oral route 2 times per day with morning and evening meals for 30 days 02/13 completed Not Available Not Available Not Available carvedilol 12.5 mg tablet TAKE ONE TABLET BY MOUTH TWICE DAILY with food 2021 active Not Available Not Available Not Avai lable Neurontin 300 mg capsule 1 - 2 tid for back pain 02/13 completed Not Available Not Available Not Available aspirin 325 mg tablet take 1 tablet (325 mg) by oral route once daily 11/12 completed Not Available Not Available Not Available glyburide 5 mg tablet take 1 tablet (5 mg) by oral route 2 times per day before meals 05/22 completed Not Available Not Available Not Available Glucovance 2.5 mg-500 mg tablet take 1 tablet by oral route 2 times per day with meals for 90 days 01/16 completed Not Available Not Available Not Available clarithromy katia 500 mg tablet take 1 tablet (500 mg) by oral route 2 times per day for 10 days 02/03 completed Not Available Not Available Not Available Glucovance 5 mg-500 mg tablet take 1 tablet by oral route 2 times per day with meals for 30 days 01/10 completed Not Available Not Available Not Available Keflex 500 mg capsule take 1 capsule (500 mg) by oral route every 12 hours for 10 days 05/12 completed Not Available Not Available Not Available Avelox 400 mg tablet take 1 tablet (400 mg) by oral route once daily for 10 days 10/15 completed Not Available Not Available Not Available glipizide 10 mg tablet TAKE ONE TABLET BY MOUTH TWICE DAILY with meals 2021 active Not Available Not Available Not Avai lable prednisone 20 mg tablet take 1 tablet (20 mg) by oral route once daily for 5 days 08/03 completed Not Available Not Available Not Available lovastatin 40 mg tablet TAKE ONE TABLET BY MOUTH DAILY, with evening meal 2022 active Not Available Not Available Not Avai lable AndroGel 1 % (25 mg/2.5 gram) transdermal gel packet 4 pumps daily 05/12 completed Not Available Not Available Not Available Zithromax Z-Jonah 250 mg tablet take 2 tablets (500 mg) by oral route once daily for 3 days 12/23 completed Not Available Not Available Not Available Flonase 50 mcg/actuati on nasal spray,suspe nsion inhale 1 spray (50 mcg) in each nostril by intranasa l route 2 times per day for 30 days 02/13 completed Not Available Not Available Not Available metronidazo le 500 mg tablet Take 1 tablet every 6 hours by oral route. 08/10 completed Not Available Not Available Not Available ciprofloxac in 500 mg tablet take 1 tablet (500 mg) by oral route 2 times per day for 10 days 12/19 completed Not Available Not Available Not Available omeprazole 40 mg capsule,del ayed release TAKE ONE CAPSULE BY MOUTH EVERY DAY 2020 active Not Available Not Available Not Avai lable aspirin 81 mg tablet,aixa yed release 81 mg by oral route. active Not Available Not Available No t Available ondansetron 8 mg disintegrat ing tablet Place 1 tablet every 6-8 hours by transling ual route as needed. 2019 active Not Available Not Available Not Avai lable Lipitor 20 mg tablet take 1 tablet (20 mg) by oral route once daily for 90 days 07/24 completed Not Available Not Available Not Available warfarin [...] 24 hours for 10 days 02/13 completed Not Available Not Available Not Available baclofen 10 mg tablet take 1 tablet (10 mg) by oral route 4 times per day for 30 days 02/13 completed Not Available Not Available Not Available amlodipine 10 mg tablet TAKE ONE TABLET BY MOUTH EVERY DAY active Not Available Not Available No t Available metformin 1,000 mg tablet take 1 tablet by oral route 2 times a day for 30 days 09/05 completed Not Available Not Available Not Available Hyzaar 100 mg-25 mg tablet 1 po qd 07/18 completed Not Available Not Available Not Available clotrimazol e-betametha sone 1 %-0.05 % topical cream APPLY TO THE AFFECTED AND SURROUNDI NG AREAS OF SKIN BY TOPICAL ROUTE 2 TIMES PER DAY IN THE MORNING AND EVENING FOR 2 WEEKS 09/04 completed Not Available Not Available Not Available Levaquin 500 mg tablet take 1 tablet (500 mg) by oral route once daily for 10 days 07/02 completed Not Available Not Available Not Available Viagra 100 mg tablet take 1 tablet (100 mg) by oral route once daily as needed approxima tely 1 hour before sexual activity for 10 days 11/12 completed Not Available Not Available Not Available Nasonex 50 mcg/actuati on [place] 1 sniff bilat bid 09/15 completed Not Available Not Available Not Available Vitamin D2 1,250 mcg (50,000 unit) capsule TAKE ONE CAPSULE BY MOUTH twice a WEEK 2021 active Not Available Not Available Not Avai lable amoxicillin 875 mg-potassiu m clavulanate 125 mg tablet take 1 tablet by oral route every 12 hours for 10 days 10/10 completed Not Available Not Available Not Available neomycin-po lymyxin-hyd rocort 3.5 mg-10,000 unit/mL-1 % ear drops,susp instill 4 drops into affected ear(s) by otic route 3 times per day for 10 days 06/11 completed Not Available Not Available Not Available Bactrim DS 800 mg-160 mg tablet take 1 tablet by oral route 2 times per day for 10days 01/10 completed Not Available Not Available Not Available TobraDex 0.3 %-0.1 % eye drops,suspe nsion instill 1 drop into affected eye(s) by ophthalmi c route every 6 hours 08/30 completed Not Available Not Available Not Available Neosporin (velvet-erika-po lym) 3.5 mg-400 unit-5,000 unit/gram top ointment Apply 1 applicati on 4 times a day by topical route. 04/18 completed Not Available Not Available Not Available Avandamet 2 mg-500 mg tablet take 1 tablet by oral route 2 times per day with meals for 30 days 01/09 completed Not Available Not Available Not Available Avodart 0.5 mg capsule take 1 capsule (0.5 mg) by oral route once daily for 30 days 04/18 completed Not Available Not Available Not Available Novolog FlexPen U-100 Insulin aspart 100 unit/mL (3 mL) subcutaneou s Inject 6 units twice a day by subcutane ous route. 08/10 completed Not Available Not Available Not Available Allergy Relief (loratadine ) 10 mg tablet TAKE ONE TABLET BY MOUTH ONCE DAILY 2022 active Not Available Not Available Not Avai lable fenofibrate 160 mg tablet TAKE ONE TABLET BY MOUTH EVERY DAY 2022 active Not Available Not Available Not Avai lable Actoplus MET 15 mg-500 mg tablet take 1 tablet by oral route 2 times per day for 90 days 01/09 completed Not Available Not Available Not Available losartan 100 mg-hydrochl orothiazide 12.5 mg tablet TAKE ONE TABLET BY MOUTH EVERY DAY 2022 active Not Available Not Available Not Avai lable Mucinex D 60 mg-600 mg tablet,exte nded release take 1 tablet by oral route every 12 hours as needed for 10 days 08/03 completed Not Available Not Available Not Available losartan active Not Available Not Avai lable Not Available Vitamin D3 active Not Available Not Av ailable Not Available Levemir U-100 Insulin 100 unit/mL subcutaneou s solution inject by subcutane ous route per prescribe r's instructi ons. Insulin dosing requires individua lization. 04/22 completed Not Available Not Available Not Available Januvia 100 mg tablet take 1 tablet (100 mg) by oral route once daily for 30 days 02/13 completed Not Available Not Available Not Available Lantus Solostar U-100 Insulin 100 unit/mL (3 mL) subcutaneou s pen Inject 30 units every day by subcutane ous route at bedtime. active Not Available Not Available No t Available Lantus Solostar U-100 Insulin active Not Available Not Available Not Available Vitamin D 2,000 unit capsule Take 2 capsules every day by oral route. active Not Available Not Available No t Available loratadine 10 mg capsule active Not Available Not Available Not Available Vitamin D3 50 mcg (2,000 unit) capsule Take 1 capsule every day by oral route. 09/25 completed Not Available Not Available Not Available Xarelto 20 mg tablet TAKE ONE TABLET BY MOUTH EVERY DAY 2022 active Not Available Not Available Not Avai lable Victoza 2-Jonah 0.6 mg/0.1 mL (18 mg/3 mL) subcutaneou s pen injector inject 0.2 millilite r (1.2 mg) by subcutane ous route once daily 04/18 completed Not Available Not Available Not Available Bydureon 2 mg/0.65 mL subcutaneou s pen injector Inject by subcutane ous route. 04/18 completed Not Available Not Available Not Available Easy Comfort Pen [place] 32 gauge x 5/32 USE DIRECTED DAILY 2021 active Not Available Not Available Not Avai lable Accu-Chek Guide test strips USE TO test blood sugar ONCE DAILY 2022 active Not Available Not Available Not Avai lable Ozempic 0.25 mg or 0.5 mg (2 mg/1.5 mL) subcutaneou s pen injector Inject 0.5 mg every week by subcutane ous route as directed for 90 days. 01/02 completed Not Available Not Available Not Available Ozempic active Not Available Not Avail able Not Available Ozempic 1 mg/dose (4 mg/3 mL) subcutaneou s pen injector Inject 1 mg every week by subcutane ous route for 28 days. 2022 active Not Available Not Available Not Avai lable Vitals Date Recorded Body height Body mass index (BMI) Body weight Body temperature Heart rate Respiratory rate Systolic And Diastolic Provider Name and Address Organization Details Last Updated DateTime 3 182.88 cm 27 kg/m2 91192.8 8 g 97.6 [degF] 70 /min 18 /min 100/74 mm[Hg] Cecilia Chu [facility] & [place] 3 09:58:51 Date Recorded Body height Provider Name an d Address Organization Details Last Updated DateTime 03/25/2023 182.88 cm [facility] [place] 03/25/2023 10:49:32 Date Recorded Body height Provider Name an d Address Organization Details Last Updated DateTime 04/15/2023 182.88 cm [facility]hed Cuh [facility] [place] 04/15/2023 10:30:14 Social History None recorded. Functional Status None recorded. Mental Status None recorded. Family History Nothing Reported. Medical History Condition Response Diabetes Y Clotting Disorder Y Arthritis Y Immunizations Vaccine Type Date Status Note Provider Nam e and Address Organization Details Recorded Time Influenza, split virus, quadrivalent, preservative 6 completed Cecilia Black null, [place] - [facility] & [place] 04/09/2023 14:21:32 Influenza, split virus, quadrivalent, preservative 7 completed Cecilia Black null, [place] - [facility] & [place] 04/09/2023 14:21:32 Influenza, high-dose, quadrivalent, PF 2 completed Cecilia Black null, [place] - [facility] & [place] 04/09/2023 14:21:32 Influenza, high-dose, quadrivalent, PF 0 completed Cecilia Black null, [place] - [facility] & [place] 04/09/2023 14:21:32 Influenza, high-dose, quadrivalent, PF 1 completed Cecilia Chavo null, [place] - [facility] & [place] 04/09/2023 14:21:32 COVID-19, mRNA, LNP-S, PF, 100 mcg/0.5mL dose or 50 mcg/0.25mL dose 2 completed Cecilia Black null, [place] - [facility] & [place] 04/09/2023 14:21:32 SARS-COV-2 (COVID-19) vaccine, UNSPECIFIED 1 completed Cec[place] [facility] [place] 04/09/2023 14:21:33 SARS-COV-2 (COVID-19) vaccine, UNSPECIFIED 1 completed Cec[place] [facility] [place] 04/09/2023 14:21:33 influenza, unspecified formulation 5 completed Cecilia [place] [facility] - [place] & [place] 04/09/2023 14:21:33 influenza, unspecified formulation 2 completed Cecilia [place] [facility] [place] 04/09/2023 14:21:33 influenza, unspecified formulation 1 completed Cecilia [place] [facility] [place] 04/09/2023 14:21:33 influenza, unspecified formulation 9 completed Cecilia Black [place] - [facility] & [place] 04/09/2023 14:21:33 influenza, unspecified formulation 0 completed Cecilia Black [place] - [facility] & [place] 04/09/2023 14:21:33 influenza, unspecified formulation 4 completed Cecilia [place] [facility] & [place] 04/09/2023 14:21:33 influenza, unspecified formulation 3 completed Cec[place] [facility] [place] 03/04/2023 09:59:50 influenza, unspecified formulation 8 completed Cecilia Black null[place] - [facility] & [place] 04/09/2023 14:21:33 zoster live 9 completed Cecilia Black [place] [facility] [place] 03/04/2023 09:59:50 Influenza, high-dose, trivalent, PF 8 completed Cecilia Black null[place] - [facility] & [place] 04/09/2023 14:21:33 Influenza, high-dose, trivalent, PF 9 completed Cecilia Chavo [place] [facility] [place] 04/09/2023 14:21:33 Past Encounters Encounter ID Performer Location Encounter Start Date Encounter Closed Date Diagnosis/Indication Diagnosis SNOMED-CT Code Diagnosis ICD10 Code Diagnosis Note [id number] ELIAS FERREIRA [facility] [place] [id number] 9 03/04/2023 09:14:27 03/04/2023 10:26:03 Closed fracture of left wrist 2510395592 3318037 S62.92XA [id number] ELIAS FERREIRA [place] [id number] 9 03/25/2023 09:42:08 03/25/2023 11:27:42 Closed fracture of left wrist 8799247987 0777057 S62.92XD [id number] ELIAS FERREIRA [place] [id number] 04/15/2023 10:24:17 04/15/2023 11:25:47 Closed fracture of left wrist 1160586997 8160294 S62.92XD Health Concerns Section Related Observation LastModified by Organization Detai ls LastModified Time None Recorded Concern Status LastModified by Organization Details LastModified Time None Recorded Advance Directives Directive None Recorded Payers Insurance Date Sequence Insurance Name Policy Number Policy Mcintyre Covered Member ID Mcintyre Member ID Guarantor Name 04/12/2023 1 [employer] Saul Salazar [id number] Owen Salazar 04/12/2023 [employer] (MEDICARE REPLACEMENT/A DVANTAGE - PPO) Saul Salazar [id number] Owen Salazar Notes Date Note Type Note Provider Name and Address Organization Details Recorded Time 03/04/2023 text/html 82 year old left handed male here today for injury sustained in fall. DOI: 03/01/23. Patient fell at home in his garage landing on his left side. Multiple x-rays taken at 03/03/23, left shoulder, left forearm, left humerus, left wrist. X-rays revealed suspicious for a nondisplaced longitudinal fracture through the lateral aspect of the distal radius. Patient reports pain left upper extremity about shoulder with ROM. Left arm severely bruised. Patient is on blood thinners. No swelling noted to left wrist and denies complaints. Has taken Advil as needed for pain. PATIENT IS VERY HARD OF HEARING. [id number] TONIA CONWAY NP [address] [place] [address],[address], [place], [address], [facility] & [place] 03/04/2023 14:21:12 03/25/2023 text/html Patient here tod for 3 1/2 week follow up nondisplaced longitudinal fracture through the lateral aspect of the distal radius. DOI: 03/01/23. Short arm cast in place to left arm, neurovascularly intact. Denies complications. Does want out of cast today. X-rays today in office in cast. [id number] Arik Ott MD [address] [place] [address],[address], [place], [address], [facility] & [place] 03/25/2023 11:43:45 04/15/2023 text/html Pt is here for f /u with Xrays of his left wrist. He is wearing a brace. He reports no pain-E2SF TONIA CONWAY NP [address] [facility],[address], [place], [address], [facility] & [place] 04/15/2023 16:10:38
--- OUTSIDE RECORDS SUMMARY | 2024-12-22 11:33 | XMS_ITS | Data Portability ---
Author Organization [facility] Address [address] [place] [address] Assessment Encounter Date Assessment Date Assessment LastModified by Organization Details LastModified Time 10/20/2024 10/20/2024 Customary discussion of prescribed medication benefits, side effects, and compliance was done. Patient was instructed on proper skin care. Discussed disease presentation, treatment options, progression, complications , and outcomes with patient during this office visit. [email or web address] Not available 10/21/2024 23:21:41 Plan of Treatment Reminders Order Date Submit Date Provider Last Modified By Organization Details Last Modified Time Details Appointments ESTABLISH ED PT 30 2024 10:00A M Marcelina Longo, WILMA Not available Not available Not available Lab HbA1c (hemoglob in A1c), blood 2024 025 On license of [facility], [address] [place] [address] , [place], [address], 09/21/2024 15:03:37 glucose, fingersti ck, blood 2024 025 On license of [facility], [address] [place] [address] , [place], [address], 09/21/2024 15:03:37 Referral None recorded. Procedures None recorded. Surgeries None recorded. Imaging XR, chest, 2 view 2024 025 [facility], [address] [place] [address] , [place], [address], 11/24/2024 15:34:09 Medication Orders dexametha sone sodium phosphate 10 mg/mL injection solution 2024 025 Not available 11/24/2024 13:09:48 triamcino lone acetonide 0.1 % topical ointment 2024 025 [facility], [address] [place] [address] Dr [place], [id number], 10/20/2024 18:28:33 Zithromax Z-Jonah 250 mg tablet 2024 025 [facility], [address] [place] [address] , [place], [id number], 11/24/2024 13:18:03 Patient TargetsNo targets recorded. Patient Instructions Encounter Date Encounter Id Patient Instructions Last Modified By Organization Details Last Modified Time 08/18/2024 [id number] When You Want to Lose Weight: Care Instructions [email or web address] Not available 08/18/2024 13:58:44 learning about healthy weight [email or web address] Not available 08/18/2024 13:58:44 09/21/2024 [id number] Peripheral Arterial Disease (PAD): Care Instructions rjessee Not available 09/21/2024 15:03:37 prostate biopsy: about this test rjessee Not available 09/21/2024 15:03:37 When You Want to Lose Weight: Care Instructions rjessee Not available 09/21/2024 15:03:37 learning about healthy weight rjessee Not available 09/21/2024 15:03:37 weight managemen t education rjessee Not available 09/21/2024 15:03:37 high blood pressure: care instructions rjessee Not available 09/21/2024 15:03:37 learning about high blood pressure rjessee Not available 09/21/2024 15:03:37 iron deficiency anemia: care instructions rjessee Not available 09/21/2024 15:03:37 Continue Glipizide 10 mg twice a day. Continue Ozempic 2 mg injection weekly. Continue Lantus 30 units at bedtime. Check your fasting sugar daily and bring meter in with you to each visit. Follow up with your other health care providers as scheduled. I want to see you back in 3 months. [email or web address] Not available 09/21/2024 09:40:06 11/09/2024 [id number] Peripheral Arterial Disease (PAD): Care Instructions rjessee Not available 11/09/2024 14:59:40 dizziness: care instructions rjessee Not available 11/09/2024 14:59:39 prostate biopsy: about this test rjessee Not available 11/09/2024 14:59:39 When You Want to Lose Weight: Care Instructions rjessee Not available 11/09/2024 14:59:39 learning about healthy weight rjessee Not available 11/09/2024 14:59:39 weight managemen t education rjessee Not available 11/09/2024 14:59:39 high blood pressure: care instructions rjessee Not available 11/09/2024 14:59:39 learning about high blood pressure rjessee Not available 11/09/2024 14:59:39 iron deficiency anemia: care instructions rjessee Not available 11/09/2024 14:59:39 Had his son justine e him on over to the ER. [email or web address] Not available 11/09/2024 14:58:37 11/24/2024 [id number] When You Want to Lose Weight: Care Instructions [email or web address] Not available 11/24/2024 13:27:57 Reason for Referral None Reported. Results Created Date Observation Date Name Description Value Unit Range Abnormal Flag Note LastModifiedBy Organization Detail LastModifiedTime 07/21/1907/22/2024 ALBUM IN/CR EAT RATIO , RANDO M UR creatinine, urine 70.6 mg/dL not estab. normal Not Available [facility] [address] [place], [address], 07/22/2024 06:24:06 07/21/1907/22/2024 ALBUM IN/CR EAT RATIO , RANDO M UR albumin, urine 1461.1 ug/mL not estab. Resul ts confi rmed on dilut ion. Not Available [facility] [address] [facility], [place], [address], 07/22/2024 06:24:06 07/21/19 25 07/22/2024 ALBUM IN/CR EAT RATIO , RANDO M UR alb/creat ratio 2070 mg/g_ creat 0-29 above high normal Theresa l: 0 - 29 Moder ately incre ased: 30 - 300 Sever kat incre ased: >300 Not Available [facility] [address] [place], [address], 07/22/2024 06:24:06 07/21/19 25 07/21/2024 CBC WITH DIFFE RENTI AL/PL ATELE T WBC 7.3 x10e3 /uL 3.4-10 .8 normal Not Available [facility] [address] [place], [address], 07/22/2024 11:13:26 07/21/19 25 07/21/2024 CBC WITH DIFFE RENTI AL/PL ATELE T RBC 3.60 x10e6 /uL 4.14-5 .80 below low normal Not Available [facility] [address] [place], [address], 07/22/2024 11:13:26 07/21/19 25 07/21/2024 CBC WITH DIFFE RENTI AL/PL ATELE T hemoglobin 10.6 g/dL 13.0-1 7.7 below low normal Not Available [facility] [address] [place], [address], 07/22/2024 11:13:26 07/21/19 25 07/21/2024 CBC WITH DIFFE RENTI AL/PL ATELE T hematocrit 33.5 % 37.5-5 1.0 below low normal Not Available [facility] [address] [place], [address], 07/22/2024 11:13:26 07/21/19 25 07/21/2024 CBC WITH DIFFE RENTI AL/PL ATELE T MCV 93 fL 79-97 normal Not Available [facility] [address] [place], [address], 07/22/2024 11:13:26 07/21/19 25 07/21/2024 CBC WITH DIFFE RENTI AL/PL ATELE T MCH 29.4 pg 26.6-3 3.0 normal Not Available [facility] [address] [place], [address], 07/22/2024 11:13:26 07/21/19 25 07/21/2024 CBC WITH DIFFE RENTI AL/PL ATELE T MCHC 31.6 g/dL 31.5-3 5.7 normal Not Available [facility] [address] [place], [address], 07/22/2024 11:13:26 07/21/19 25 07/21/2024 CBC WITH DIFFE RENTI AL/PL ATELE T RDW 12.3 % 11.6-1 5.4 Not Available [facility] [address] [place], [address], 07/22/2024 11:13:26 07/21/19 25 07/21/2024 CBC WITH DIFFE RENTI AL/PL ATELE T platelets 301 x10e3 /uL 150-45 0 normal Not Available [facility] [address] [place], [address], 07/22/2024 11:13:26 07/21/19 25 07/21/2024 CBC WITH DIFFE RENTI AL/PL ATELE T neutrophils 65 % not estab. normal Not Available [facility] [address] [place], [address], 07/22/2024 11:13:26 07/21/19 25 07/21/2024 CBC WITH DIFFE RENTI AL/PL ATELE T lymphs 20 % not estab. normal Not Available [facility] [address] [place], [address], 07/22/2024 11:13:26 07/21/19 25 07/21/2024 CBC WITH DIFFE RENTI AL/PL ATELE T monocytes 10 % not estab. normal Not Available [facility] [address] [place], [address], 07/22/2024 11:13:26 07/21/19 25 07/21/2024 CBC WITH DIFFE RENTI AL/PL ATELE T eos 4 % not estab. normal Not Available [facility] [address] [facility], [place], [address], 07/22/2024 11:13:26 07/21/19 25 07/21/2024 CBC WITH DIFFE RENTI AL/PL ATELE T basos 1 % not estab. normal Not Available [facility] [address] [facility], [place], [address], 07/22/2024 11:13:26 07/21/19 25 07/21/2024 CBC WITH DIFFE RENTI AL/PL ATELE T immature cells APPLICATIONS COORDINATOR Not Available [facility] [address] [place], [address], 07/22/2024 11:13:26 07/21/19 25 07/21/2024 CBC WITH DIFFE RENTI AL/PL ATELE T neutrophils (absolute) 4.7 x10e3 /uL 1.4-7. 0 normal Not Available [facility] [address] [place], [address], 07/22/2024 11:13:26 07/21/19 25 07/21/2024 CBC WITH DIFFE RENTI AL/PL ATELE T lymphs (absolute) 1.5 x10e3 /uL 0.7-3. 1 normal Not Available [facility] [address] [facility], [place], [address], 07/22/2024 11:13:26 07/21/19 25 07/21/2024 CBC WITH DIFFE RENTI AL/PL ATELE T monocytes(ab solute) 0.7 x10e3 /uL 0.1-0. 9 normal Not Available [facility] [address] [facility], [place], [address], 07/22/2024 11:13:26 07/21/19 25 07/21/2024 CBC WITH DIFFE RENTI AL/PL ATELE T eos (absolute) 0.3 x10e3 /uL 0.0-0. 4 normal Not Available [facility] [address] [facility], [place], [address], 07/22/2024 11:13:26 07/21/19 25 07/21/2024 CBC WITH DIFFE RENTI AL/PL ATELE T baso (absolute) 0.0 x10e3 /uL 0.0-0. 2 normal Not Available [facility] [address] [facility], [place], [address], 07/22/2024 11:13:26 07/21/19 25 07/21/2024 CBC WITH DIFFE RENTI AL/PL ATELE T immature granulocytes 0 % not estab. Not Available [facility] [address] [place], [address], 07/22/2024 11:13:26 07/21/19 25 07/21/2024 CBC WITH DIFFE RENTI AL/PL ATELE T immature grans (abs) 0.0 x10e3 /uL 0.0-0. 1 Not Available [facility] [address] [facility], [place], [address], 07/22/2024 11:13:26 07/21/19 25 07/21/2024 CBC WITH DIFFE RENTI AL/PL ATELE T NRBC APPLICATIONS COORDINATOR Not Available [facility] [address], [place], [address], 07/22/2024 11:13:26 07/21/19 25 07/21/2024 CBC WITH DIFFMustapha REDDING AL/PL ATELE T hematology comments: APPLICATIONS COORDINATOR Not Available [facility] [address], [place], [address], 07/22/2024 11:13:26 07/21/19 25 07/22/2024 RENAL PANEL (10) glucose 207 mg/dL 70-99 above high normal Not Available [facility] [address] [place], [address], 07/22/2024 11:13:27 07/21/19 25 07/22/2024 RENAL PANEL (10) BUN 41 mg/dL 8-27 above high normal Not Available [facility] [address], [place], [address], 07/22/2024 11:13:27 07/21/19 25 07/22/2024 RENAL PANEL (10) creatinine 3.31 mg/dL 0.76-1 .27 above high normal Not Available [facility] [address] [place], [address], 07/22/2024 11:13:27 07/21/19 25 07/22/2024 RENAL PANEL (10) eGFR 18 mL/mi n/1.7 3 >59 below low normal Not Available [facility] [address] [place], [address], 07/22/2024 11:13:27 07/21/19 25 07/22/2024 RENAL PANEL (10) BUN/creatini ne ratio 12 10-24 normal Not Available [facility] [address] [place], [address], 07/22/2024 11:13:27 07/21/19 25 07/22/2024 RENAL PANEL (10) sodium 140 mmol/ L 134-14 4 normal Not Available [facility] [address] [facility] [place], [address], 07/22/2024 11:13:27 07/21/19 25 07/22/2024 RENAL PANEL (10) potassium 4.7 mmol/ L 3.5-5. 2 normal Not Available [facility] [address] [facility] [place], [address], 07/22/2024 11:13:27 07/21/19 25 07/22/2024 RENAL PANEL (10) chloride 107 mmol/ L 96-106 above high normal Not Available [facility] [address] [facility] [place], [address], 07/22/2024 11:13:27 07/21/19 25 07/22/2024 RENAL PANEL (10) carbon dioxide, total 18 mmol/ L 20-29 below low normal Not Available [facility] [address] [facility] [place], [address], 07/22/2024 11:13:27 07/21/19 25 07/22/2024 RENAL PANEL (10) calcium 9.0 mg/dL 8.6-10 .2 normal Not Available [facility] [address] [facility] [place], [address], 07/22/2024 11:13:27 07/21/19 25 07/22/2024 RENAL PANEL (10) phosphorus 3.3 mg/dL 2.8-4. 1 normal Not Available [facility] [address] [facility] [place], [address], 07/22/2024 11:13:27 07/21/19 25 07/22/2024 RENAL PANEL (10) albumin 3.7 g/dL 3.7-4. 7 normal Not Available [facility] [address] [facility] [place], [address], 07/22/2024 11:13:27 07/21/19 25 07/22/2024 IRON AND TIBC iron bind.cap.(TI BC) 373 ug/dL 250-45 0 normal Not Available [facility] [address] [facility] [place], [address], 07/22/2024 11:13:27 07/21/19 25 07/22/2024 IRON AND TIBC UIBC 326 ug/dL 111-34 3 normal Not Available [facility] [address] [facility] [place], [address], 07/22/2024 11:13:27 07/21/19 25 07/22/2024 IRON AND TIBC iron 47 ug/dL 38-169 normal Not Available [facility] [address] [facility] [place], [address], 07/22/2024 11:13:27 07/21/19 25 07/22/2024 IRON AND TIBC iron saturation 13 % 15-55 below low normal Not Available [facility] [address] [facility] [place], [address], 07/22/2024 11:13:27 07/21/19 25 07/22/2024 VITAM IN D, 25-HY DROXY vitamin D, 25-hydroxy 27.6 NG/mL 30.0-1 00.0 below low normal Vitam in D defic iency has been defin ed by the Insti tute of Medic ine and an Endoc rine Socie ty pract ice guide line as a level of serum 25-OH vitam in D less than 20 ng/mL (1,2) . The Endoc rine Socie ty went on to furth er defin e vitam in D insuf ficie ncy as a level betwe en 21 and 29 ng/mL (2). 1. IOM (Inst itute of Medic ine). 2010. Dieta ry refer ence intak es for calci um and D. Elder aragon [place]: [facility] Press . 2. Zuly de la paz [place], Makayla deras [place], [place] off-[place] tiki i [place], et al. Evalu ation , treat ment, and preve ntion of vitam in D defic iency : an Endoc rine Socie ty clini siobhan pract ice guide line. JCEM. 2010; 96(7) :1911 -30. Not Available [facility] [address] [facility], [place], [address], 07/22/2024 11:13:28 07/21/19 25 07/22/2024 MIGDALIA TIN ferritin 43 NG/mL 30-400 normal Not Available [facility] [address] [place], [address], 07/22/2024 11:13:29 07/21/19 25 07/22/2024 PTH, INTAC T PTH, intact 82 pg/mL 15-65 above high normal Not Available [facility] [address] [place], [address], 07/22/2024 11:13:30 09/22/19 25 09/21/2024 HbA1c (hemo globi n A1c), blood HbA1C 8.2 % Not Available [address] , [place], [address], 09/21/2024 09:40:01 09/22/19 25 09/21/2024 gluco se, finge rstic k, blood Blood Glucose: mg/dl 220 Not Available [address] , [place], [address], 09/21/2024 09:40:01 11/04/19 25 11/04/2024 CBC WITH DIFFE RENTI AL/PL ATELE T WBC 7.0 x10e3 /uL 3.4-10 .8 normal Not Available [facility] [address] [place], [address], 11/04/2024 12:11:54 11/04/1911/04/2024 CBC WITH DIFFE RENTI AL/PL ATELE T RBC 3.70 x10e6 /uL 4.14-5 .80 below low normal Not Available [facility] [address] [place], [address], 11/04/2024 12:11:54 11/04/1911/04/2024 CBC WITH DIFFE RENTI AL/PL ATELE T hemoglobin 11.1 g/dL 13.0-1 7.7 below low normal Not Available [facility] [address] [place], [address], 11/04/2024 12:11:54 11/04/1911/04/2024 CBC WITH DIFFE RENTI AL/PL ATELE T hematocrit 34.6 % 37.5-5 1.0 below low normal Not Available [facility] [address] [place], [address], 11/04/2024 12:11:54 11/04/1911/04/2024 CBC WITH DIFFE RENTI AL/PL ATELE T MCV 94 fL 79-97 normal Not Available [facility] [address] [place], [address], 11/04/2024 12:11:54 11/04/1911/04/2024 CBC WITH DIFFE RENTI AL/PL ATELE T MCH 30.0 pg 26.6-3 3.0 normal Not Available [facility] [address] [place], [address], 11/04/2024 12:11:54 11/04/19 25 11/04/2024 CBC WITH DIFFE RENTI AL/PL ATELE T MCHC 32.1 g/dL 31.5-3 5.7 normal Not Available [facility] [address] [facility], [place], [address], 11/04/2024 12:11:54 11/04/19 25 11/04/2024 CBC WITH DIFFE RENTI AL/PL ATELE T RDW 13.3 % 11.6-1 5.4 Not Available [facility] [address] [facility], [place], [address], 11/04/2024 12:11:54 11/04/19 25 11/04/2024 CBC WITH DIFFE RENTI AL/PL ATELE T platelets 241 x10e3 /uL 150-45 0 normal Not Available [facility] [address] [facility], [place], [address], 11/04/2024 12:11:54 11/04/1911/04/2024 CBC WITH DIFFE RENTI AL/PL ATELE T neutrophils 66 % not estab. normal Not Available [facility] [address] [facility], [place], [address], 11/04/2024 12:11:54 11/04/19 25 11/04/2024 CBC WITH DIFFE RENTI AL/PL ATELE T lymphs 20 % not estab. normal Not Available [facility] [address] [facility], [place], [address], 11/04/2024 12:11:54 11/04/19 25 11/04/2024 CBC WITH DIFFE RENTI AL/PL ATELE T monocytes 9 % not estab. normal Not Available [facility] [address] [place], [address], 11/04/2024 12:11:54 11/04/19 25 11/04/2024 CBC WITH DIFFE RENTI AL/PL ATELE T eos 4 % not estab. normal Not Available [facility] [address] [facility], [place], [address], 11/04/2024 12:11:54 11/04/19 25 11/04/2024 CBC WITH DIFFE RENTI AL/PL ATELE T basos 1 % not estab. normal Not Available [facility] [address] [facility], [place], [address], 11/04/2024 12:11:54 11/04/19 25 11/04/2024 CBC WITH DIFFE RENTI AL/PL ATELE T immature cells APPLICATIONS COORDINATOR Not Available [facility] [address] [facility], [place], [address], 11/04/2024 12:11:54 11/04/1911/04/2024 CBC WITH DIFFE RENTI AL/PL ATELE T neutrophils (absolute) 4.6 x10e3 /uL 1.4-7. 0 normal Not Available [facility] [address] [place], [address], 11/04/2024 12:11:54 11/04/19 25 11/04/2024 CBC WITH DIFFE RENTI AL/PL ATELE T lymphs (absolute) 1.4 x10e3 /uL 0.7-3. 1 normal Not Available [facility] [address] [place], [address], 11/04/2024 12:11:54 11/04/19 25 11/04/2024 CBC WITH DIFFE RENTI AL/PL ATELE T monocytes(ab solute) 0.6 x10e3 /uL 0.1-0. 9 normal Not Available [facility] [address] [place], [address], 11/04/2024 12:11:54 11/04/19 25 11/04/2024 CBC WITH DIFFE RENTI AL/PL ATELE T eos (absolute) 0.3 x10e3 /uL 0.0-0. 4 normal Not Available [facility] [address] [facility], [place], [address], 11/04/2024 12:11:54 11/04/19 25 11/04/2024 CBC WITH DIFFE RENTI AL/PL ATELE T baso (absolute) 0.0 x10e3 /uL 0.0-0. 2 normal Not Available [facility] [address] [facility], [place], [address], 11/04/2024 12:11:54 11/04/19 25 11/04/2024 CBC WITH DIFFE RENTI AL/PL ATELE T immature granulocytes 0 % not estab. Not Available [facility] [address] [facility], [place], [address], 11/04/2024 12:11:54 11/04/19 25 11/04/2024 CBC WITH DIFFE RENTI AL/PL ATELE T immature grans (abs) 0.0 x10e3 /uL 0.0-0. 1 Not Available [facility] [address] [facility], [place], [address], 11/04/2024 12:11:54 11/04/19 25 11/04/2024 CBC WITH DIFFE RENTI AL/PL ATELE T NRBC APPLICATIONS COORDINATOR Not Available [facility] [address] [place], [address], 11/04/2024 12:11:54 11/04/19 25 11/04/2024 CBC WITH DIFFE RENTI AL/PL ATELE T hematology comments: APPLICATIONS COORDINATOR Not Available [facility] [address] [place], [address], 11/04/2024 12:11:54 11/04/19 25 11/04/2024 URINA LYSIS , ROUTI NE specific gravity 1.012 1.005- 1.030 normal Not Available [facility] [address] [facility] [place], [address], 11/04/2024 12:11:55 11/04/19 25 11/04/2024 URINA LYSIS , ROUTI NE pH 6.0 5.0-7. 5 normal Not Available [facility] [address] [facility], [place], [address], 11/04/2024 12:11:55 11/04/19 25 11/04/2024 URINA LYSIS , ROUTI NE urine-color Yellow yellow Not Available [facility] [address] [place], [address], 11/04/2024 12:11:55 11/04/19 25 11/04/2024 URINA LYSIS , ROUTI NE appearance Clear clear Not Available [facility] [address] [place], [address], 11/04/2024 12:11:55 11/04/19 25 11/04/2024 URINA LYSIS , ROUTI NE WBC esterase Negati ve negati ve Not Available [facility] [address] [place], [address], 11/04/2024 12:11:55 11/04/19 25 11/04/2024 URINA LYSIS , ROUTI NE protein 2+ negati ve/tra ce abnormal Not Available [facility] [address] [place], [address], 11/04/2024 12:11:55 11/04/19 25 11/04/2024 URINA LYSIS , ROUTI NE glucose 1+ negati ve abnormal Not Available [facility] [address] [place], [address], 11/04/2024 12:11:55 11/04/19 25 11/04/2024 URINA LYSIS , ROUTI NE ketones Negati ve negati ve Not Available [facility] [address] [facility], [place], [address], 11/04/2024 12:11:55 11/04/1911/04/2024 URINA LYSIS , ROUTI NE occult blood Negati ve negati ve Not Available [facility] [address] [facility], [place], [address], 11/04/2024 12:11:55 11/04/19 25 11/04/2024 URINA LYSIS , ROUTI NE bilirubin Negati ve negati ve Not Available [facility] [address] [facility], [place], [address], 11/04/2024 12:11:55 11/04/1911/04/2024 URINA LYSIS , ROUTI NE urobilinogen ,semi-qn 0.2 mg/dL 0.2-1. 0 normal Not Available [facility] [address] [facility], [place], [address], 11/04/2024 12:11:55 11/04/1911/04/2024 URINA LYSIS , ROUTI NE nitrite, urine Negati ve negati ve Not Available [facility] [address] [facility], [place], [address], 11/04/2024 12:11:55 11/04/1911/04/2024 URINA LYSIS , ROUTI NE microscopic examination See below: Micro scopi c was indic ated and was perfo rmed. Not Available [facility] [address] [place], [address], 11/04/2024 12:11:55 11/04/1911/04/2024 URINA LYSIS , ROUTI NE WBC None seen /hpf 0 - 5 Not Available [facility] [address] [place], [address], 11/04/2024 12:11:55 11/04/19 25 11/04/2024 URINA LYSIS , ROUTI NE RBC None seen /hpf 0 - 2 Not Available [facility] [address], [place], [address], 11/04/2024 12:11:55 11/04/19 25 11/04/2024 URINA LYSIS , ROUTI NE epithelial cells (non renal) None seen /hpf 0 - 10 Not Available [facility] [address], [place], [address], 11/04/2024 12:11:55 11/04/19 25 11/04/2024 URINA LYSIS , ROUTI NE epithelial cells (renal) APPLICATIONS COORDINATOR Not Available [facility] [address], [place], [address], 11/04/2024 12:11:55 11/04/19 25 11/04/2024 URINA LYSIS , ROUTI NE casts None seen /lpf none seen Not Available [facility] [address], [place], [address], 11/04/2024 12:11:55 11/04/19 25 11/04/2024 URINA LYSIS , ROUTI NE cast type APPLICATIONS COORDINATOR Not Available [facility] [address], [place], [address], 11/04/2024 12:11:55 11/04/1911/04/2024 URINA LYSIS , ROUTI NE crystals APPLICATIONS COORDINATOR Not Available [facility] [address], [place], [address], 11/04/2024 12:11:55 11/04/19 25 11/04/2024 URINA LYSIS , ROUTI NE crystal type APPLICATIONS COORDINATOR Not Available [facility] [address], [place], [address], 11/04/2024 12:11:55 11/04/19 25 11/04/2024 URINA LYSIS , ROUTI NE mucus threads APPLICATIONS COORDINATOR Not Available [facility] [address] [place], [address], 11/04/2024 12:11:55 11/04/19 25 11/04/2024 URINA LYSIS , ROUTI NE bacteria None seen none seen/f ew Not Available [facility] ([facility]) [address] [facility], [place], [address], 11/04/2024 12:11:55 11/04/19 25 11/04/2024 URINA LYSIS , ROUTI NE yeast APPLICATIONS COORDINATOR Not Available [facility] [address] [place], [address], 11/04/2024 12:11:55 11/04/19 25 11/04/2024 URINA LYSIS , ROUTI NE trichomonas APPLICATIONS COORDINATOR Not Available [facility] [address] [place], [address], 11/04/2024 12:11:55 11/04/1911/04/2024 URINA LYSIS , ROUTI NE comment APPLICATIONS COORDINATOR Not Available [facility] [address] [place], [address], 11/04/2024 12:11:55 11/04/19 25 11/04/2024 RENAL PANEL (10) glucose 184 mg/dL 70-99 above high normal Not Available [facility] [address] [place], [address], 11/04/2024 12:11:56 11/04/19 25 11/04/2024 RENAL PANEL (10) BUN 60 mg/dL 8-27 above high normal Not Available [facility] [address] [place], [address], 11/04/2024 12:11:56 11/04/19 25 11/04/2024 RENAL PANEL (10) creatinine 4.79 mg/dL 0.76-1 .27 above high normal Not Available [facility] [address] [place], [address], 11/04/2024 12:11:56 11/04/19 25 11/04/2024 RENAL PANEL (10) eGFR 11 mL/mi n/1.7 3 >59 below low normal Not Available [facility] [address] [place], [address], 11/04/2024 12:11:56 11/04/19 25 11/04/2024 RENAL PANEL (10) BUN/creatini ne ratio 13 10-24 normal Not Available [facility] [address] [place], [address], 11/04/2024 12:11:56 11/04/19 25 11/04/2024 RENAL PANEL (10) sodium 139 mmol/ L 134-14 4 normal Not Available [facility] [address] [place], [address], 11/04/2024 12:11:56 11/04/19 25 11/04/2024 RENAL PANEL (10) potassium 4.1 mmol/ L 3.5-5. 2 normal Not Available [facility] ([facility] [address] [place], [address], 11/04/2024 12:11:56 11/04/19 25 11/04/2024 RENAL PANEL (10) chloride 105 mmol/ L 96-106 normal Not Available [facility] ([facility] [address] [place], [address], 11/04/2024 12:11:56 11/04/19 25 11/04/2024 RENAL PANEL (10) carbon dioxide, total 17 mmol/ L 20-29 below low normal Not Available [facility] [address] [facility], [place], [address], 11/04/2024 12:11:56 11/04/1911/04/2024 RENAL PANEL (10) calcium 9.0 mg/dL 8.6-10 .2 normal Not Available [facility] [address] [facility], [place], [address], 11/04/2024 12:11:56 11/04/19 25 11/04/2024 RENAL PANEL (10) phosphorus 4.3 mg/dL 2.8-4. 1 above high normal Not Available [facility] [address] [facility] [place], [address], 11/04/2024 12:11:56 11/04/19 25 11/04/2024 RENAL PANEL (10) albumin 3.9 g/dL 3.7-4. 7 normal Not Available [facility] [address] [place], [address], 11/04/2024 12:11:56 11/04/1911/04/2024 IRON AND TIBC iron bind.cap.(TI BC) 340 ug/dL 250-45 0 normal Not Available [facility] [address] [facility], [place], [address], 11/04/2024 12:11:56 11/04/1911/04/2024 IRON AND TIBC UIBC 267 ug/dL 111-34 3 normal Not Available [facility] [address] [place], [address], 11/04/2024 12:11:56 11/04/1911/04/2024 IRON AND TIBC iron 73 ug/dL 38-169 normal Not Available [facility] [address] [place], [address], 11/04/2024 12:11:56 0511/04/2024 IRON AND TIBC iron saturation 21 % 15-55 normal Not Available [facility] [address] [facility], [place], [address], 11/04/2024 12:11:56 11/04/19 25 11/04/2024 VITAM IN D, 25-HY DROXY vitamin D, 25-hydroxy 31.7 NG/mL 30.0-1 00.0 Vitam in D defic iency has been defin ed by the Insti tute of Medic ine and an Endoc rine Socie ty pract ice guide line as a level of serum 25-OH vitam in D less than 20 ng/mL (1,2) . The Endoc rine Socie ty went on to furth er defin e vitam in D insuf ficie ncy as a level betwe en 21 and 29 ng/mL (2). 1. IOM (Inst itute of Medic ine). 2009. Nona ry refer ence rosendo es for calci um and D. Elder aragon [place]: The [facility] [place] [facility] . 2. Zuly de la paz [place], Makayla deras [place], [place] off-F errar i COE, et al. Evalu ation , treat ment, and preve ntion of vitam in D defic iency : an Endoc rine Socie ty clini siobhan pract ice guide line. JCEM. 2010; 96(7) :1911 -30. Not Available [facility] [address] [facility], [place], [address], 11/04/2024 12:11:57 11/04/1911/04/2024 MIGDALIA TIN ferritin 77 NG/mL 30-400 normal Not Available [facility] [address] [place], [address], 11/04/2024 12:11:58 11/04/1911/04/2024 PROTE IN,TO PAULINO,U RINE protein,tota l,urine 123.4 mg/dL not estab. normal Not Available [facility] [address] [facility] [place], [address], 11/04/2024 12:11:58 11/04/19 25 11/04/2024 CREAT ININE , URINE creatinine, urine 57.3 mg/dL not estab. normal Not Available [facility] [address] [facility] [place], [address], 11/04/2024 12:11:59 11/04/19 25 11/04/2024 PTH, INTAC T PTH, intact 102 pg/mL 15-65 above high normal Not Available [facility] [address] [facility] [place], [address], 11/04/2024 12:11:59 11/25/19 25 11/25/2024 BASIC METAB OLIC PANEL (8) glucose 99 mg/dL 70-99 normal Not Available [facility] [address] [place], [address], 11/25/2024 04:10:06 11/25/19 25 11/25/2024 BASIC METAB OLIC PANEL (8) BUN 60 mg/dL 8-27 above high normal Not Available [facility] [address] [place], [address], 11/25/2024 04:10:06 11/25/19 25 11/25/2024 BASIC METAB OLIC PANEL (8) creatinine 4.44 mg/dL 0.76-1 .27 above high normal Not Available [facility] [address] [place], [address], 11/25/2024 04:10:06 11/25/19 25 11/25/2024 BASIC METAB OLIC PANEL (8) eGFR 12 mL/mi n/1.7 3 >59 below low normal Not Available [facility] [address] [place], [address], 11/25/2024 04:10:06 11/25/19 25 11/25/2024 BASIC METAB OLIC PANEL (8) BUN/creatini ne ratio 14 10-24 normal Not Available [facility] [address] [place], [address], 11/25/2024 04:10:06 11/25/19 25 11/25/2024 BASIC METAB OLIC PANEL (8) sodium 138 mmol/ L 134-14 4 normal Not Available [facility] [address] [place], [address], 11/25/2024 04:10:06 11/25/19 25 11/25/2024 BASIC METAB OLIC PANEL (8) potassium 4.7 mmol/ L 3.5-5. 2 normal Not Available [facility] [address] [place], [address], 11/25/2024 04:10:06 11/25/19 25 11/25/2024 BASIC METAB OLIC PANEL (8) chloride 104 mmol/ L 96-106 normal Not Available [facility] [address] [place], [address], 11/25/2024 04:10:06 11/25/19 25 11/25/2024 BASIC METAB OLIC PANEL (8) carbon dioxide, total 19 mmol/ L 20-29 below low normal Not Available [facility] [address] [place], [address], 11/25/2024 04:10:06 11/25/19 25 11/25/2024 BASIC METAB OLIC PANEL (8) calcium 9.3 mg/dL 8.6-10 .2 normal Not Available [facility] [address] [place], [address], 11/25/2024 04:10:06 12/22/19 25 12/22/2024 BASIC METAB OLIC PANEL (8) glucose 151 mg/dL 70-99 above high normal Not Available [facility] [address] [facility] [place], [address], 12/22/2024 04:10:01 12/22/19 25 12/22/2024 BASIC METAB OLIC PANEL (8) BUN 40 mg/dL 8-27 above high normal Not Available [facility] [address] [facility] [place], [address], 12/22/2024 04:10:01 12/22/19 25 12/22/2024 BASIC METAB OLIC PANEL (8) creatinine 3.32 mg/dL 0.76-1 .27 above high normal Not Available [facility] [address] [facility] [place], [address], 12/22/2024 04:10:01 12/22/19 25 12/22/2024 BASIC METAB OLIC PANEL (8) eGFR 18 mL/mi n/1.7 3 >59 below low normal Not Available [facility] [address] [facility] [place], [address], 12/22/2024 04:10:01 12/22/1912/22/2024 BASIC METAB OLIC PANEL (8) BUN/creatini ne ratio 12 10-24 normal Not Available [facility] [address] [facility] [place], [address], 12/22/2024 04:10:01 12/22/1912/22/2024 BASIC METAB OLIC PANEL (8) sodium 140 mmol/ L 134-14 4 normal Not Available [facility] [address] [facility] [place], [address], 12/22/2024 04:10:01 12/22/19 25 12/22/2024 BASIC METAB OLIC PANEL (8) potassium 4.4 mmol/ L 3.5-5. 2 normal Not Available [facility] [address] [place], [address], 12/22/2024 04:10:01 12/22/19 25 12/22/2024 BASIC METAB OLIC PANEL (8) chloride 109 mmol/ L 96-106 above high normal Not Available [facility] [address] [facility], [place], [address], 12/22/2024 04:10:01 12/22/19 25 12/22/2024 BASIC METAB OLIC PANEL (8) carbon dioxide, total 17 mmol/ L 20-29 below low normal Not Available [facility] [address] [facility], [place], [address], 12/22/2024 04:10:01 12/22/19 25 12/22/2024 BASIC METAB OLIC PANEL (8) calcium 9.0 mg/dL 8.6-10 .2 normal Not Available [facility] [address] [facility], [place], [address], 12/22/2024 04:10:01 11/25/19 25 XR, chest , 2 view No observ ation record ed. [place] [employer] [address] [facility] , [place], [address], 11/24/2024 16:35:31 Result Notes None recorded. Problems Name Problem SNOMED Code Status Onset Date Resolution Date Notes Provider Name and Address Organization Details Recorded Time Essential hypertens ion 99298492 Active 2015 Not Available [facility] 3 11:37:22 Deep venous thrombosi s 030120785 Active 2015 Not Available [facility] 3 11:37:22 Type 2 diabetes mellitus 41968150 Completed 201505/23/2021 Marcelina Longo, [employer] [address], [place], [address] , [place] - [facility] 1 10:42:42 Hyperlipi demia 26695042 Active 2015 Not Available [facility] 3 11:37:22 Impotence Active 2015 Not Available [facility] 3 11:37:22 Long-term current use of anticoagu lant 924132468 Active 2015 Not Available [facility] 3 11:37:22 Obesity 016100584 Active 2015 Not Available [facility] 3 11:37:22 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 Not Available [facility] 3 11:37:22 Periphera l vascular disease 358299668 Active 2015 Not Available [facility] 3 11:37:22 Pulmonary embolism 14558169 Completed 201504/08/2016 Paula sher[place], [place] - [facility] 6 13:01:47 Vitamin D deficienc y 36840696 Active 2020 Not Available [facility] 3 11:37:22 Hyperglyc emia due to type 2 diabetes mellitus 88267009519 9109 Active 2020 Not Available [facility] 3 11:37:22 Chronic kidney disease stage 3 956686472 Active 2020 Not Available [facility] 3 11:37:22 Chronic ki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 57460797253 5 Active 2020 Not Available [facility] 3 11:37:22 Mixed hyperlipi demia 373547862 Active 2020 Not Available [facility] 3 11:37:22 History of deep vein thrombosi s 357104288 Active 2020 Not Available [facility] 3 11:37:22 History of pulmonary embolus 538613947 Active 2020 Not Available [facility] 3 11:37:22 Benign essential hypertens ion 9967564 Active 2020 Not Available [facility] 3 11:37:22 Periphera l neuropath y due to type 2 diabetes mellitus 74294079726 07 Active 2020 Not Available [facility] 3 11:37:22 Warfarin monitorin g status 625539609 Active 2016 Not Available [facility] 3 11:37:22 Pruritic dermatiti s Active 2024 Kat Deyvi, [employer] [address], [place], [address] , [place] - [facility] 16:20:33 Problem Notes None recorded. Procedures Surgical History Date Name Laterality Status Provider Name and Address Organization Details Recorded Time 09/22/19 25 A1C level 8.0 to 9.0 completed Clive Evestra - [facility] 09/21/2024 14:59:34 05/19/20 24 Advance Care Planning completed Paula Hay [facility] 05/19/2024 12:54:25 05/19/20 24 Functional Status Assessed completed [facility] 05/19/2024 12:54:25 01/21/20 24 Positive Microalbumin completed Clive Evestra - [facility] 01/21/2024 10:44:25 01/21/20 24 A1C level 6.9 and below completed Clive Evestra - [facility] 01/21/2024 10:48:27 10/22/19 24 A1C level 6.9 and below completed Clive Evestra - [facility] 10/22/2023 13:05:51 07/24/19 24 A1C level 8.0 to 9.0 completed Clive Evestra - [facility] 07/24/2023 11:56:27 04/08/20 23 A1C level 6.9 and below completed Clive Evestra - [facility] 04/08/2023 11:20:15 09/05/19 23 Medication Reconcilliation completed Paula Hay [facility] 09/04/2022 13:11:20 06/13/19 23 A1C level 7.0 to 7.9 completed Clive Evestra - [facility] 06/13/2022 11:10:06 03/06/20 22 A1C level 7.0 to 7.9 completed Clive Evestra - [facility] 03/06/2022 13:11:24 12/04/19 22 A1C level 7.0 to 7.9 completed Clive SarmientoElderscan - [facility] 12/03/2021 14:19:16 11/29/19 22 Cerumen Removal completed Giovanni Glass MD [address], [place], [address] [place] - [facility] 11/28/2021 10:57:35 08/30/19 22 Positive Microalbumin completed Clive Sung [place] - [facility] 08/29/2021 09:20:08 08/30/19 22 A1C level 7.0 to 7.9 completed Clive Sarmientoyles [place] - [facility] 08/29/2021 09:23:03 05/23/20 21 A1C level 7.0 to 7.9 completed Clive Sarmientoyles [place] - [facility] 05/23/2021 10:41:28 02/22/20 21 A1C level 7.0 to 7.9 completed Clive Pineda [place] - [facility] 02/21/2021 08:38:20 11/03/19 21 A1C level 7.0 to 7.9 completed Myah Rama [place] - [facility] 11/02/2020 13:15:09 08/25/19 21 Diastolic B/P less than 80 mm Hg completed Paula Hay [place] - [facility] 08/24/2020 09:28:23 08/25/19 21 Systolic B/P 130-139 mm Hg completed Paula Hay [place] - [facility] 08/24/2020 09:28:20 08/01/19 21 Diastolic B/P less than 80 mm Hg completed Myah Rama [place] - [facility] 08/01/2020 16:31:17 08/01/19 21 Systolic B/P 130-139 mm Hg completed Myah Rama [place] [facility] 08/01/2020 16:31:11 08/01/19 21 A1C level 7.0 to 7.9 completed Myah Rama [place] - [facility] 08/01/2020 16:34:05 07/26/19 21 [...] 20 A1C level 7.0 to 7.9 completed Myah Goodencell [place] - [facility] 04/18/2020 16:36:39 03/22/20 [...] Hg completed Paula Hay [place] - [facility] 11/17/2019 13:40:30 11/17/19 20 Diastolic B/P less than 80 mm Hg completed Paula Hay [place] - [facility] 11/17/2019 13:40:34 10/08/19 20 Systolic B/P less than 130 mm Hg completed Paula Hay [place] - [facility] 10/08/2019 13:43:56 10/08/19 20 Diastolic B/P less than 80 mm Hg completed Paula Hay [place] - [facility] 10/08/2019 13:44:01 09/08/19 20 Systolic B/P less than 130 mm Hg completed Paula Leslie [facility] 09/08/2019 12:57:34 09/08/19 20 Diastolic B/P less than 80 mm Hg completed [facility] 09/08/2019 12:57:39 08/11/19 20 Systolic B/P less than 130 mm Hg completed [facility] 08/11/2019 13:09:51 08/11/19 20 Diastolic B/P 80-89 mm Hg completed [facility] 08/11/2019 13:09:55 06/10/19 20 Systolic B/P less than 130 mm Hg completed [facility] 06/10/2019 12:57:49 06/10/19 20 Diastolic B/P 80-89 mm Hg completed [facility] 06/10/2019 12:57:53 10/25/19 18 Advance Care Planning completed Corine Welch RN [address], [address], [facility] 10/24/2017 08:56:49 Cataract Surgery completed Corine Welch RN [address], [place], [address], [facility] 10/24/2017 09:14:03 Imaging Results None recorded. Procedure [...] nued on: 02/04/20 09 12:54PM; User: tiffanie Martinez Completi on: 06/24/19 09;Print ed: 06/14/19 Not Available Not Available Not Available Glucovanc e 5 mg-500 mg tablet take 1 tablet by oral route 2 times per day with meals for 30 days 01/10 completed Glucovan ce 5-500 mg oral tablet;R ecorded Status: Recorded on: 01/10/20 11 1:39PM;D iscontin ued Status: Disconti nued on: 01/11/20 11 3:55PM;U ser: varunEst . Completi on: 04/09/20 11 Not Available Not Available Not Available Keflex 500 mg capsule take 1 capsule (500 mg) by oral route every 12 hours for 10 days 05/12 completed Keflex 500 mg oral capsule; Recorded Status: Recorded on: 04/18/20 08 11:01AM; Disconti nued Status: Disconti nued on: 05/12/20 08 3:46PM;U ser: Tima tSam Completi on: 04/28/20 08;Print ed: 04/18/20 08 Not Available Not Available Not Available Avelox 400 mg tablet take 1 tablet (400 mg) by oral route once daily for 10 days 10/15 completed Avelox 400 mg oral tablet;R ecorded Status: Recorded on: 10/16/19 12 9:37AM;D iscontin ued Status: Disconti nued on: 10/16/19 12 11:38AM; User: jadyn De La OEst. Completi on: 11/05/19 12;Indic ation: Bronchit is, Acute [...] Disconti nued on: 08/03/19 11 9:03AM;U ser: gillisa; Est. Completi on: 06/16/19 11;Print ed: 06/11/19 [...] Disconti nued on: 02/14/20 16 9:04AM;U ser: lesliem;Est . Completi on: 11/02/19 13 Not Available [...] Disconti nued on: 09/06/19 12 11:49AM; User: varunEst . Completi on: 12/30/19 12;Indic ation: Type 2 Diabetes Mellitus - () Not Available Not Available Not Available Hyzaar 100 mg-25 mg tablet 1 po qd 07/18 completed Hyzaar 100-25 mg oral tablet;P rescribe Status: Prescrib ed on: 01/08/20 14 4:26PM;D iscontin ued Status: Disconti nued on: 07/18/19 15 1:27PM;U ser: earlywin ec;Est. Completi on: 07/06/19 15;Pharm acyVerif ied: 01/08/20 14 4:26PM Not Available Not [...] Available Not Available Nasonex 50 mcg/actua tion [place] 1 sniff bilat bid 09/15 completed Nasonex 50 mcg/actu ation nasal spray,no n-aeroso l;Prescr yvonne Status: Prescrib ed on: 09/16/19 14 11:17AM; Disconti nued Status: Disconti nued on: 09/16/19 14 3:25PM;U ser: grossert ;Est. Completi on: 03/14/20 14;Indic ation: Atopic Rhinitis - (08.4779 03);Phar macyVeri fied: 09/16/19 14 11:17AM Not Available Not [...] : Superfic ial Ocular Infectio n - (06.3798 00);Prin hola: 07/10/19 10 Not Available Not Available [...] nued on: 04/18/20 08 11:05AM; User: Tima Wilks on: 07/17/19 09;Indic ation: Symptoma tic Prostati c Hypertro phy - (106000 01);Prin hola: 04/18/20 08 Not Available Not [...] 13;Indic ation: Type 2 Diabetes Mellitus - (03.2500 00);Prin hola: 06/04/20 12 Not Available Not [...] Status: Recorded on: 08/26/19 14 9:00AM;U ser: clover Not Available Not Available Not Available Bydureon 2 mg/0.65 mL subcutane ous pen injector Inject by subcutan eous route. 04/18 completed [address] ED BY DR[address] ROMAN Not Available Not Available Not Available Easy Comfort Pen [place] 32 gauge x 5/32 USE DIRECTED DAILY [...] Details Last Updated DateTime 5 182.88 cm 26.4 kg/m2 77830.5 1 g 97.6 [degF] 84 /min 96 % 96 % 18 /min 138/80 mm[Hg] Paula Gee [place] - [facility] 5 13:26:03 Date Recorded Body height Body mass index (BMI) Body weight Body temperature Heart rate Oxygen saturation Oxygen saturation in Arterial blood by Pulse oximetry Respiratory rate Systolic And Diastolic Provider Name and Address Organization Details Last Updated DateTime 5 182.88 cm 26.5 kg/m2 64543.6 1 g 98.2 [degF] 73 /min 97 % 97 % 18 /min 120/63 mm[Hg] Clive Sung [facility] 5 14:55:39 Date Recorded Body height Body mass index (BMI) Body weight Respiratory rate Body temperature Oxygen saturation Oxygen saturation in Arterial blood by Pulse oximetry Heart rate Systolic And Diastolic Provider Name and Address Organization Details Last Updated DateTime 5 182.88 cm 26.7 kg/m2 10903.7 g 20 /min 98.4 [degF] 98 % 98 % 74 /min 120/68 mm[Hg] Deidra Guerra in [facility] 5 15:22:08 Date Recorded Body height Oxygen saturation Oxygen saturation in Arterial blood by Pulse oximetry Heart rate Body mass index (BMI) Body weight Body temperature Systolic And Diastolic Provider Name and Address Organization Details Last Updated DateTime 5 182.88 cm 98 % 98 % 75 /min 25.9 kg/m2 23909.5 4 g 98.4 [degF] 130/64 mm[Hg] Larry Li [facility] 5 14:35:39 Date Recorded Body height Body mass index (BMI) Body weight Body temperature Heart rate Oxygen saturation Oxygen saturation in Arterial blood by Pulse oximetry Respiratory rate Systolic And Diastolic Provider Name and Address Organization Details Last Updated DateTime 5 182.88 cm 25.8 kg/m2 19787.5 5 g 98.5 [degF] 100 /min 97 % 97 % 18 /min 110/60 mm[Hg] Paula Gee [facility] 5 13:09:19 Social History Question Answer Notes LastModified by Organization Details LastModified Time Tobacco Smoking Status Former Smoker Paula Gee [facility] 04/08/2016 13:03:41 Able To Swim? Yes Information [...] Or The Highest Degree You Have Received? [id number] Information not available 01/18/2021 Swimming/diving No Informati [...] 04/10/2016 What Is Your Current Pack Years? [email or web address] s Information not available 03/06/2022 Do You [...] anxious, or unable to sleep at night)? [id number] Information not available 01/18/2021 Do you have [...] Diseases N Kidney Stones N Hyperthyroidism N Rheumatoid arthritis N Blood Transfusion N Erectile Dysfunction Y amputation N Skin Lesions N COPD N Depression N Pneumonia N Incontinence N Murmur N Edema N Alzheimer's Disease N Migraine Headaches N Tobacco Abuse N Anxiety Disorder N Muscle, Joint, or Bone Problems N Hemorrhoids N Obesity Y Vision or Eye Problems N Restless Leg Syndrome N Arthritis N Infertility N Polyps N Carpal Tunnel N Mental Disorder N Acid Reflux (GERD) N Cancer N Stroke N Varicosities N Tendonitis N Crohn's Disease N Hypercholesterolemia N Skin Cancer N Fibromyalgia N Headaches N Anal Fissure N Irritable Bowel Syndrome [...] colitis N Cerebrovascular Disease N Depression N Guillain-[place] N Sleep Apnea N Aneurysm N Bronchitis N Heart Disease N Suicidal Ideation N Pre-Eclampsia N Hypertension Y Osteoporosis N Immunizations Vaccine Type Date Status Note Provider Nam e and Address Organization Details Recorded Time COVID-19, mRNA, LNP-S, PF, 100 mcg/0.5mL dose or 50 mcg/0.25mL dose 1 completed Radha sheridan, [place] - [facility] 05/26/2024 10:16:32 COVID-19, mRNA, LNP-S, PF, 100 mcg/0.5mL dose or 50 mcg/0.25mL dose 1 completed Radha Whittaker null, [place] - [facility] 05/26/2024 10:16:32 Influenza, split virus, trivalent, PF 2 completed Radha sheridan, KOD[place] - [facility] 05/26/2024 10:16:32 Influenza, high-dose, quadrivalent, PF 0 completed Shahnaz Herman APRN [address], [place], [address], [place] - [facility] 03/14/2020 16:08:39 Influenza, high-dose, quadrivalent, PF 1 completed Giovanni Glass MD [address], [place], [address], [place] [facility] 03/21/2021 14:31:50 influenza, unspecified formulation 0 completed Not Available [facility] 02/01/2023 11:37:23 influenza, unspecified formulation 1 completed Not Available [facility] 02/01/2023 11:37:23 influenza, unspecified formulation 2 completed Radha sheridan, [place]OD[place] - [facility] 05/26/2024 10:16:32 influenza, unspecified formulation 3 completed Not Available [facility] 02/01/2023 11:37:23 influenza, unspecified formulation 4 completed Not Available [facility] 02/01/2023 11:37:23 influenza, unspecified formulation 5 completed Not Available [facility] 02/01/2023 11:37:23 influenza, unspecified formulation 8 completed Not Available [facility] 02/01/2023 11:37:23 influenza, unspecified formulation 9 completed Not Available [facility] 02/01/2023 11:37:23 Influenza, split virus, quadrivalent, preservative 7 completed Not Available [facility] 06/26/2019 03:54:42 COVID-19, mRNA, LNP-S, PF, 100 mcg/0.5mL dose or 50 mcg/0.25mL dose 2 completed Giovanni Glass MD [address], [place], [address], [place] [facility] 06/21/2021 11:12:07 Influenza, high-dose, quadrivalent, PF 2 completed Marcelina Longo APRN [address], [place], [address], [place] [facility] 03/06/2022 13:31:11 Influenza, high-dose, quadrivalent, PF 3 completed Paula sheridan, [place] - [facility] 03/13/2023 09:48:17 Influenza, split virus, quadrivalent, preservative 6 completed Not Available [facility] 02/01/2023 11:37:23 zoster live 9 completed Not Available [facility] 02/01/2023 11:37:23 Influenza, high-dose, trivalent, PF 4 completed Debra Barajas MD [address], [place], [address], [place] [facility] 03/09/2024 15:47:29 Tdap 4 completed Paula sheridan, [place] - [facility] 05/19/2024 16:57:05 Pneumococcal conjugate PCV20, polysaccharide [id number] conjugate, adjuvant, PF 4 completed Paula Gee null, [place] - [facility] 05/19/2024 16:57:56 Influenza, high-dose, trivalent, PF 8 completed Not Available [facility] 06/26/2019 03:55:10 SARS-COV-2 (COVID-19) vaccine, UNSPECIFIED 1 completed Radha sheridan, [place] - [facility] 05/26/2024 10:16:32 SARS-COV-2 (COVID-19) vaccine, UNSPECIFIED 1 completed Radha sheridan, [place] - [facility] 05/26/2024 10:16:32 Influenza, high-dose, trivalent, PF 9 completed Not Available [facility] 06/26/2019 03:56:04 Past Encounters Encounter ID Performer Location Encounter Start Date Encounter Closed Date Diagnosis/Indication Diagnosis SNOMED-CT Code Diagnosis ICD10 Code Diagnosis Note [id number] [facility] [address] [place] [address] 02/23/2014 00:00:00 [id number] [facility] [address] [place] [address] 5 03/03/2014 00:00:00 [id number] [facility] [address] [place] [address] 04/22/2014 00:00:00 [id number] [facility] [address] [place] [address] 05/25/2014 00:00:00 [id number] [facility] [address] [place] [address] 5 06/29/2014 00:00:00 [id number] [facility] [address] [place] [address] 5 07/13/2014 00:00:00 [id number] [facility] [address] [place] [address] 5 08/05/2014 00:00:00 [id number] [facility] [address] [place] [address] 5 09/02/2014 00:00:00 [id number] [facility] [address] [place] [address] 5 09/30/2014 00:00:00 [id number] [facility] [address] [place] [address] 5 05/24/2015 00:00:00 [id number] [facility] [address] [place] [address] 5 10/28/2014 00:00:00 [id number] [facility] [address] [place] [address] 5 06/21/2015 00:00:00 [id number] [facility] [address] [place] [address] 5 07/26/2015 00:00:00 [id number] [facility] [address] [place] [address] 5 11/25/2014 00:00:00 [id number] [facility] [address] [address] 5 12/23/2014 00:00:00 [id number] [facility] [address] [place] [address] 02/03/2014 00:00:00 [id number] [facility] [address] [place] [address] 5 01/25/2015 00:00:00 [id number] [facility] [address] [place] [address] 5 02/23/2015 00:00:00 [id number] [facility] [address] [place] [address] 5 02/23/2015 00:00:00 [id number] [facility] [address] [place] [address] 5 03/23/2015 00:00:00 [id number] [facility] [address] [place] [address] 5 04/20/2015 00:00:00 [id number] [facility] [address] [place] [address] 5 06/29/2014 00:00:00 [id number] [facility] [address] [place] [address] 5 05/24/2015 00:00:00 [id number] [facility] [address] [place] [address] 5 10/28/2014 00:00:00 [id number] [facility] [address] [place] [address] 5 11/25/2014 00:00:00 [id number] [facility] [address] [place] [address] 5 11/01/2015 00:00:00 [id number] [facility] [address] [place] [address] 5 11/22/2015 00:00:00 [id number] [facility] [address] [place] [address] 5 07/26/2015 00:00:00 [id number] [facility] [address] [place] [address] 5 12/20/2015 00:00:00 [id number] [facility] [address] [place] [address] 5 08/23/2015 00:00:00 [id number] [facility] [address] [place] [address] 5 09/20/2015 00:00:00 [id number] [facility] [address] [place] [address] 5 01/17/2016 00:00:00 [id number] [facility] [address] [place] [address] 5 10/18/2015 00:00:00 [id number] [facility] [address] [place] [address] 5 02/14/2016 00:00:00 [id number] [facility] [address] [place] [address] 5 11/01/2015 00:00:00 [id number] [facility] [address] [place] [address] 5 04/24/2010 00:00:00 [id number] [facility] [address] [place] [address] 5 06/04/2010 00:00:00 [id number] [facility] [address] [place] [address] 5 06/11/2010 00:00:00 [id number] [facility] [address] [place] [address] 5 06/21/2010 00:00:00 [id number] [facility] [address] [place] [address] 08/03/2010 00:00:00 [id number] [facility] [address] [place] [address] 5 08/22/2010 00:00:00 [id number] [facility] [address] [place] [address] 5 12/26/2010 00:00:00 [id number] [facility] [address] [place] [address] 5 01/11/2011 00:00:00 [id number] [facility] [address] [place] [address] 5 01/16/2011 00:00:00 [id number] [facility] [address] [place] [address] 5 01/16/2011 00:00:00 [id number] [facility] [address] [place] [address] 5 05/24/2011 00:00:00 [id number] [facility] [address] [place] [address] 5 07/03/2011 00:00:00 [id number] [facility] [address] [place] [address] 5 07/24/2011 00:00:00 [id number] [facility] [address] [place] [address] 5 09/06/2011 00:00:00 [id number] [facility] [address] [place] [address] 5 10/16/2011 00:00:00 [id number] [facility] [address] [place] [address] 5 11/13/2011 00:00:00 [id number] [facility] [address] [place] [address] 5 11/21/2011 00:00:00 [id number] [facility] [address] [place] [address] 5 12/06/2011 00:00:00 [id number] [facility] [address] [place] [address] 5 01/03/2012 00:00:00 [id number] [facility] [address] [place] [address] 5 03/12/2012 00:00:00 [id number] [facility] [address] [place] [address] 5 01/03/2012 00:00:00 [id number] [facility] [address] [place] [address] 5 04/22/2012 00:00:00 [id number] [facility] [address] [place] [address] 5 02/12/2012 00:00:00 [id number] [facility] [address] [place] [address] 5 05/08/2012 00:00:00 [id number] [facility] [address] [place] [address] 5 05/20/2012 00:00:00 [id number] [facility] [address] [place] [address] 5 12/08/2013 00:00:00 [id number] [facility] [address] [place] [address] 5 10/22/2012 00:00:00 [id number] [facility] [address] [place] [address] 5 03/17/2013 00:00:00 [id number] [facility] [address] [place] [address] 5 03/19/2013 00:00:00 [id number] [facility] [address] [place] [address] 5 03/26/2013 00:00:00 [id number] [facility] [address] [place] [address] 5 04/02/2013 00:00:00 [id number] [facility] [address] [place] [address] 5 04/09/2013 00:00:00 [id number] [facility] [address] [place] [address] 5 04/09/2013 00:00:00 [id number] [facility] [address] [place] [address] 5 04/23/2013 00:00:00 [id number] [facility] [address] [place] [address] 5 05/28/2012 00:00:00 [id number] [facility] [address] [place] [address] 5 05/26/2013 00:00:00 [id number] [facility] [address] [place] [address] 5 06/04/2012 00:00:00 [id number] [facility] [address] [place] [address] 5 06/30/2013 00:00:00 [id number] [facility] [address] [address] 5 09/30/2012 00:00:00 [id number] [facility] [address] [address] 5 10/22/2012 00:00:00 [id number] [facility] [address] [place] [address] [address] 5 06/30/2013 00:00:00 [id number] [facility] [address] [address] 5 07/28/2013 00:00:00 [id number] [facility] [address] [address] 5 12/08/2013 00:00:00 [id number] [facility] [address] [place] [address] 5 08/25/2013 00:00:00 [id number] [facility] [address] [place] [address] 5 09/15/2013 00:00:00 [id number] [facility] [address] [address] 5 10/07/2013 00:00:00 [id number] [facility] [address] [place] [address] 5 11/04/2013 00:00:00 [id number] [facility] [address] [place] [address] 5 12/08/2013 00:00:00 [id number] Giovanni Glass MD [address] [place] [address] 04/10/2016 08:48:54 04/10/2016 10:08:55 Deep venous thrombosis 152941742 I82.462 [id number] Giovanni Glass MD [address] [place] [address] 05/10/2016 09:28:10 05/10/2016 10:05:41 Deep venous thrombosis 395261372 I82.409 Body mass index 30+ - obesity 828575626 Z68.30 [id number] Giovanni Glass MD [address] [place] [address] 06/14/2016 10:01:53 06/14/2016 10:38:00 Deep venous thrombosis 472169108 I82.409 Long-term current use of anticoagulant 492793802 Z79.01 Warfarin m onitoring status 739138676 Z51.81 Body mass index 30+ - obesity 960904781 Z68.30 [id number] Giovanni Glass MD [address] [place] [address] 7 07/12/2016 09:44:38 07/12/2016 10:27:11 Deep venous thrombosis 747416842 I82.409 Long-term current use of anticoagulant 955989622 Z79.01 Warfarin m onitoring status 296470385 Z51.81 Body mass index 30+ - obesity 799793487 Z68.30 [id number] Giovanni Glass MD [address] [place] [address] 7 08/09/2016 09:58:16 08/09/2016 10:50:16 Deep venous thrombosis 664771049 I82.409 Warfarin m onitoring status 276837371 Z51.81 Long-term current use of anticoagulant 656197935 Z79.01 Body mass index 30+ - obesity 095701453 Z68.30 [id number] Giovanni Glass MD [address] [place] [address] 7 09/06/2016 09:04:29 09/06/2016 10:28:19 Deep venous thrombosis 447146996 I82.409 Warfarin m onitoring status 229041010 Z51.81 Long-term current use of anticoagulant 105909432 Z79.01 Body mass index 30+ - obesity 263118193 Z68.30 [id number] Giovanni Glass MD [address] [place] [address] 10/09/2016 12:24:41 10/09/2016 13:13:21 Deep venous thrombosis 897762048 I82.409 Warfarin m onitoring status 463304147 Z51.81 Long-term current use of anticoagulant 410282222 Z79.01 Body mass index 30+ - obesity 531469359 Z68.30 [id number] Giovanni Glass MD [address] [place] [address] 11/07/2016 13:32:27 11/07/2016 14:11:28 Deep venous thrombosis 550493107 I82.409 Warfarin m onitoring status 402006551 Z51.81 Long-term current use of anticoagulant 179518982 Z79.01 Body mass index 30+ - obesity 563546640 Z68.30 [id number] Giovanni Glass MD [address] [place] [address] 7 11/28/2016 12:29:41 11/28/2016 13:39:31 Deep venous thrombosis 153308767 I82.409 Peripheral vascular disease 873460934 I73.9 Type 2 joaquin betes mellitus 20875680 E11.9 Hyperlipidemia 02121283 E78.5 Essential hypertension 16380534 I10 Acute urin lupillo tract infection 993885349 N39.0 [id number] Giovanni Glass MD [address] [place] [address] 12/12/2016 08:17:34 12/12/2016 08:55:13 Anticoagulant therapy 720233369 Z79.01 Warfarin m onitoring status 465182008 Z51.81 Long-term drug therapy 755017579 Z79.899 Deep venou s thrombosis 944209262 I82.409 Body mass index 30+ - obesity 558547454 Z68.30 [id number] Giovanni Glass MD [address] [place] [address] 01/10/2017 08:54:13 01/10/2017 09:21:30 Deep venous thrombosis 229285804 I82.409 Warfarin m onitoring status 687385518 Z51.81 Long-term current use of anticoagulant 937778588 Z79.01 Body mass index 30+ - obesity 361024945 Z68.30 [id number] Giovanni Glass MD [address] [place] [address] 02/07/2017 10:36:25 02/07/2017 11:24:57 Deep venous thrombosis 196354838 I82.409 Warfarin m onitoring status 861704209 Z51.81 Long-term current use of anticoagulant 705152809 Z79.01 Body mass index 30+ - obesity 207286235 Z68.30 [id number] Giovanni Glass MD [address] [place] [address] 03/07/2017 10:25:38 03/07/2017 10:49:50 Deep venous thrombosis 164725121 I82.409 Long-term current use of anticoagulant 389007270 Z79.01 Warfarin m onitoring status 924624524 Z51.81 Body mass index 30+ - obesity 814066009 Z68.30 [id number] Valeria Villafana MD [address] [place] [address] 03/27/2017 10:49:48 03/27/2017 11:13:59 Administration of influenza vaccine 71926135 Z23 [id number] Giovanni Glass MD [address] [place] [address] 04/04/2017 10:08:32 04/04/2017 10:58:58 Deep venous thrombosis 244491360 I82.409 Warfarin m onitoring status 314904382 Z51.81 Long-term current use of anticoagulant 400423795 Z79.01 Allergic rhinitis 240448 04 J30.9 Body mass index 30+ - obesity 103573291 Z68.30 [id number] Giovanni Glass MD [address] [place] [address] 04/30/2017 10:30:16 04/30/2017 11:28:41 Deep venous thrombosis 767353392 I82.409 Body mass index 30+ - obesity 915638621 Z68.30 Warfarin m onitoring status 124941122 Z51.81 Long-term current use of anticoagulant 149823282 Z79.01 [id number] Giovanni Glass MD [address] [place] [address] 05/29/2017 13:30:45 05/29/2017 13:54:39 Deep venous thrombosis 286734650 I82.409 Acute bronchitis 3861827 2 J20.9 Warfarin m onitoring status 356328846 Z51.81 Long-term current use of anticoagulant 745385713 Z79.01 Body mass index 30+ - obesity 581398312 Z68.30 [id number] Giovanni Glass MD [address] [place] [address] 06/26/2017 10:29:54 06/26/2017 11:22:41 Deep venous thrombosis 986922191 I82.409 Acute bronchitis 5558704 2 J20.9 Warfarin m onitoring status 172728767 Z51.81 Long-term current use of anticoagulant 157545500 Z79.01 Body mass index 30+ - obesity 726734720 Z68.30 [id number] Giovanni Glass MD [address] [place] [address] 07/02/2017 08:44:52 07/02/2017 11:03:42 Hyperlipidemia 99008929 E78.5 Essential hypertension 71046209 I10 Deep venou s thrombosis 658663711 I82.409 Acute bronchitis 9316416 2 J20.9 Warfarin m onitoring status 978503604 Z51.81 Long-term current use of anticoagulant 693460186 Z79.01 Body mass index 30+ - obesity 319699683 Z68.30 Varicose v eins of lower extremity with inflammation 65527216 I83.12 resolving [id number] Giovanni Glass MD [address] [place] [address] 07/24/2017 09:20:59 07/24/2017 10:19:32 Deep venous thrombosis 330367316 I82.409 Warfarin m onitoring status 097793664 Z51.81 Long-term current use of anticoagulant 001106866 Z79.01 Body mass index 30+ - obesity 811409776 Z68.30 [id number] Giovanni Glass MD [address] [place] [address] 08/27/2017 15:21:36 08/27/2017 15:47:42 Warfarin monitoring status 108612337 Z51.81 Deep venou s thrombosis 094733788 I82.409 Long-term current use of anticoagulant 304263880 Z79.01 Body mass index 30+ - obesity 862061361 Z68.31 [id number] Giovanni Glass MD [address] [place] [address] 7 09/26/2017 09:25:52 09/26/2017 11:16:03 Deep venous thrombosis 494588710 I82.409 Warfarin m onitoring status 919484177 Z51.81 Long-term current use of anticoagulant 731140398 Z79.01 Body mass index 30+ - obesity 881927757 Z68.30 [id number] Giovanni Glass MD [address] [place] [address] 7 10/24/2017 08:42:13 10/24/2017 09:57:47 Adult health examination 561854619 Z00.00 Depression screening 171 733155 Z13.89 Examinatio n of blood pressure 264438294 Z01.31 Diet education 25806456 Z71.3 Body mass index 30+ - obesity 280363593 Z68.30 Deep venou s thrombosis 787302768 I82.409 Long-term current use of anticoagulant 279560213 Z79.01 Warfarin m onitoring status 951535837 Z51.81 Peripheral vascular disease 866378296 I73.9 Hyperlipidemia 67147779 E78.5 [id number] Thierno Fischer MD [address] [place] [address] 11/13/2017 08:46:11 11/13/2017 09:56:28 Dysuria 29978295 R30.0 Urinary tr act infectious disease 16599891 N39.0 [id number] Giovanni Glass MD [address] [place] [address] 11/21/2017 08:52:55 11/21/2017 09:41:02 Deep venous thrombosis 209336738 I82.409 Warfarin m onitoring status 798940873 Z51.81 Long-term current use of anticoagulant 331567596 Z79.01 Body mass index 30+ - obesity 413522662 Z68.30 [id number] Giovanni Glass MD [address] [place] [address] 12/19/2017 10:06:09 12/19/2017 10:45:38 Deep venous thrombosis 498205651 I82.409 Warfarin m onitoring status 626565224 Z51.81 Long-term current use of anticoagulant 074902934 Z79.01 Body mass index 30+ - obesity 163110438 Z68.31 [id number] Giovanni Glass MD [address] [place] [address] 01/16/2018 10:06:05 01/16/2018 10:38:21 Deep venous thrombosis 507263093 I82.409 Warfarin m onitoring status 437483749 Z51.81 Long-term current use of anticoagulant 995896397 Z79.01 Body mass index 30+ - obesity 926199875 Z68.31 [id number] Giovanni Glass MD [address] [place] [address] 01/28/2018 08:53:17 01/28/2018 11:09:10 Acute otitis externa 52980985 H60.501 Hyperlipidemia 45410131 E78.5 Body mass index 30+ - obesity 256092898 Z68.31 [id number] Giovanni Glass MD [address] [place] [address] 02/11/2018 10:17:49 02/11/2018 10:48:37 Deep venous thrombosis 750726414 I82.409 Warfarin m onitoring status 155631616 Z51.81 Body mass index 30+ - obesity 720972688 Z68.31 Long-term current use of anticoagulant 002257479 Z79.01 [id number] Giovanni Glass MD [address] [place] [address] 03/11/2018 09:44:15 03/11/2018 11:23:13 Warfarin monitoring status 543504213 Z51.81 Long-term drug therapy 824697204 Z79.899 Anticoagulant therapy 18 4247332 Z79.01 Administra tion of influenza vaccine 77267567 Z23 Deep venou s thrombosis 764300717 I82.635 [id number] Giovanni Glass MD [address] [place] [address] 7 04/08/2018 09:38:25 04/08/2018 10:55:32 Deep venous thrombosis 590447098 I82.409 Body mass index 30+ - obesity 443305104 Z68.31 Warfarin m onitoring status 656924908 Z51.81 Long-term current use of anticoagulant 867259781 Z79.01 [id number] Giovanni Glass MD [address] [place] [address] 7 04/22/2018 12:51:26 04/22/2018 14:05:20 Seborrheic dermatitis 79347653 L21.9 Body mass index 30+ - obesity 131952618 Z68.31 [id number] Giovanni Glass MD [address] [place] [address] 05/08/2018 09:48:47 05/08/2018 10:27:46 Deep venous thrombosis 041260679 I82.409 Warfarin m onitoring status 750314507 Z51.81 Long-term current use of anticoagulant 930298803 Z79.01 Body mass index 30+ - obesity 815689272 Z68.32 [id number] Giovanni Glass MD [address] [place] [address] 7 06/11/2018 08:31:28 06/11/2018 09:41:07 Deep venous thrombosis 042548638 I82.409 Warfarin m onitoring status 399596448 Z51.81 Long-term current use of anticoagulant 144591875 Z79.01 Allergic rhinitis 933939 04 J30.9 Body mass index 30+ - obesity 829027828 Z68.32 [id number] Giovanni Glass MD [address] [place] [address] 7 07/10/2018 08:41:58 07/10/2018 09:25:59 Deep venous thrombosis 642273332 I82.409 Warfarin m onitoring status 882976141 Z51.81 Long-term current use of anticoagulant 462556438 Z79.01 Body mass index 30+ - obesity 383645035 Z68.31 [id number] Giovanni Glass MD [address] [place] [address] 08/07/2018 08:07:24 08/07/2018 09:12:34 Deep venous thrombosis 308924308 I82.409 Warfarin m onitoring status 626313429 Z51.81 Long-term current use of anticoagulant 797904405 Z79.01 Body mass index 30+ - obesity 648278511 Z68.31 [id number] Giovanni Glass MD [address] [place] [address] 08/19/2018 09:38:58 08/19/2018 10:08:29 Deep venous thrombosis 171088827 I82.409 Warfarin m onitoring status 577612083 Z51.81 Long-term current use of anticoagulant 113160288 Z79.01 Body mass index 30+ - obesity 104778125 Z68.31 [id number] Giovanni Glass MD [address] [place] [address] 09/18/2018 09:23:10 09/18/2018 10:27:23 Deep venous thrombosis 001984935 I82.409 Warfarin m onitoring status 538438428 Z51.81 Long-term current use of anticoagulant 624977278 Z79.01 Body mass index 30+ - obesity 796182319 Z68.30 [id number] Giovanni Glass MD [address] [place] [address] 7 10/16/2018 10:50:26 10/16/2018 11:15:43 Deep venous thrombosis 057321694 I82.409 Warfarin m onitoring status 917146143 Z51.81 Long-term current use of anticoagulant 204303018 Z79.01 Body mass index 25-29 - overweight 412290057 Z68.29 [id number] Giovanni Glass MD [address] [place] [address] 7 11/19/2018 09:34:30 11/19/2018 10:05:05 Long-term drug therapy 723738826 Z79.899 Anticoagulant therapy 18 8624301 Z79.01 Deep venou s thrombosis 960572066 I82.409 Long-term current use of anticoagulant 222210439 Z79.01 Warfarin m onitoring status 980136898 Z51.81 Acute bronchitis 4254178 2 J20.9 Body mass index 25-29 - overweight 543998316 Z68.29 [id number] Giovanni Glass MD [address] [place] [address] 7 12/17/2018 09:58:33 12/17/2018 10:39:51 Deep venous thrombosis 036471730 I82.409 Warfarin m onitoring status 928207520 Z51.81 Long-term current use of anticoagulant 572325761 Z79.01 Body mass index 25-29 - overweight 695873292 Z68.29 [id number] Giovanni Glass MD [address] [place] [address] 7 01/14/2019 10:07:47 01/14/2019 10:32:03 Deep venous thrombosis 444107561 I82.409 Obesity 856835121 E66.9 Warfarin m onitoring status 287544783 Z51.81 Long-term current use of anticoagulant 179037274 Z79.01 Body mass index 25-29 - overweight 808357661 Z68.29 [id number] Giovanni Glass MD [address] [place] [address] 02/05/2019 09:00:04 02/05/2019 09:49:44 Acute gastroenteritis 76975222 K52.9 Body mass index 25-29 - overweight 199533156 Z68.28 [id number] Giovanni Glass MD [address] [place] [address] 7 02/11/2019 09:25:32 02/11/2019 09:57:08 Deep venous thrombosis 881514149 I82.409 Long-term current use of anticoagulant 074203736 Z79.01 Warfarin m onitoring status 021863669 Z51.81 Body mass index 25-29 - overweight 621536835 Z68.29 [id number] Giovanni Glass MD [address] [place] [address] 03/12/2019 10:32:19 03/12/2019 11:15:10 Deep venous thrombosis 532354697 I82.409 Obesity 380556864 E66.9 Administra tion of influenza vaccine 37352100 Z23 Warfarin m onitoring status 281764491 Z51.81 Long-term current use of anticoagulant 784071281 Z79.01 Body mass index 25-29 - overweight 212652835 Z68.29 [id number] Giovanni Glass MD [address] [place] [address] 04/09/2019 13:34:55 04/09/2019 14:05:53 Deep venous thrombosis 694842683 I82.409 Obesity 384188548 E66.9 Long-term current use of anticoagulant 724865668 Z79.01 Warfarin m onitoring status 127965311 Z51.81 Body mass index 30+ - obesity 229568527 Z68.32 [id number] Giovanni Glass MD [address] [place] [address] 05/12/2019 12:26:30 05/12/2019 13:16:15 Deep venous thrombosis 653688114 I82.409 Obesity 861802851 E66.9 Long-term current use of anticoagulant 541434110 Z79.01 Warfarin m onitoring status 941128740 Z51.81 Body mass index 25-29 - overweight 867551833 Z68.29 [id number] Giovanni Glass MD [address] [place] [address] 06/10/2019 12:12:28 06/10/2019 13:11:56 Deep venous thrombosis 927825381 I82.409 Obesity 810264172 E66.9 Long-term current use of anticoagulant 911362407 Z79.01 Warfarin m onitoring status 584534955 Z51.81 Body mass index 30+ - obesity 588789901 Z68.30 [id number] Giovanni Glass MD [address] [place] [address] 07/14/2019 10:14:09 07/14/2019 11:05:57 Warfarin monitoring status 413686845 Z51.81 Long-term current use of anticoagulant 294074764 Z79.01 Deep venou s thrombosis 816639436 I82.409 Body mass index 25-29 - overweight 461328315 Z68.29 [id number] Giovanni Glass MD [address] [place] [address] 08/11/2019 12:52:26 08/11/2019 13:23:10 Deep venous thrombosis 496087076 I82.409 Obesity 740561676 E66.9 Long-term current use of anticoagulant 879865975 Z79.01 Warfarin m onitoring status 860462721 Z51.81 Body mass index 25-29 - overweight 593755275 Z68.29 [id number] Giovanni Glass MD [address] [place] [address] 09/08/2019 12:15:08 09/08/2019 13:15:13 Deep venous thrombosis 198941019 I82.409 Obesity 556009944 E66.9 Warfarin m onitoring status 485920425 Z51.81 Long-term current use of anticoagulant 896429765 Z79.01 Body mass index 30+ - obesity 242786228 Z68.30 [id number] Giovanni Glass MD [address] [place] [address] 10/08/2019 13:24:47 10/08/2019 14:33:30 Deep venous thrombosis 510201754 I82.409 Obesity 542840232 E66.9 Dysuria 09175041 R30.9 Acute urin lupillo tract infection 881198001 N39.0 Long-term current use of anticoagulant 720534242 Z79.01 Warfarin m onitoring status 550130776 Z51.81 Body mass index 25-29 - overweight 712659194 Z68.28 [id number] Giovanni Glass MD [address] [place] [address] 11/17/2019 13:14:27 11/17/2019 14:11:38 Deep venous thrombosis 358862913 I82.409 Obesity 483218055 E66.9 Long-term current use of anticoagulant 464067612 Z79.01 Warfarin m onitoring status 805757407 Z51.81 [id number] Giovanni Glass MD [address] [place] [address] 12/16/2019 13:04:29 12/16/2019 13:27:02 Deep venous thrombosis 728855038 I82.409 Obesity 134937521 E66.9 Long-term current use of anticoagulant 742974125 Z79.01 Warfarin m onitoring status 049698747 Z51.81 Body mass index 30+ - obesity 082746580 Z68.30 Gastroesop hageal reflux disease without esophagitis 324121082 K21.9 [id number] Giovanni Glass MD [address] [place] [address] 01/20/2020 12:52:16 01/20/2020 13:32:27 Obesity 919372681 E66.9 Deep venou s thrombosis 917040335 I82.409 Warfarin m onitoring status 134540009 Z51.81 Long-term current use of anticoagulant 651746728 Z79.01 Anterior epistaxis 16463 4002 R04.0 [id number] Giovanni Glass MD [address] [place] [address] 02/23/2020 10:31:42 02/23/2020 11:08:46 Obesity 562990968 E66.9 Deep venou s thrombosis 198071108 I82.409 Long-term current use of anticoagulant 874199512 Z79.01 Warfarin m onitoring status 079649279 Z51.81 Body mass index 25-29 - overweight 420541976 Z68.29 Allergic rhinitis 493893 04 J30.9 [id number] Shahnazdavid MccannWILMA mason [address] [place] [address] 03/14/2020 15:12:46 03/14/2020 15:48:27 Administration of influenza vaccine 48919196 Z23 [id number] Giovanni Glass MD [address] [place] [address] 03/22/2020 10:20:39 03/22/2020 11:08:43 Deep venous thrombosis 942959929 I82.409 Obesity 267947195 E66.9 Type 2 joaquin betes mellitus 96707228 E11.9 Long-term current use of anticoagulant 357476404 Z79.01 Warfarin m onitoring status 552713149 Z51.81 Body mass index 25-29 - overweight 722293418 Z68.29 [id number] Marcelina Longo [address] [place] [address] 04/18/2020 16:16:39 04/18/2020 18:21:23 Hyperglycemia due to type 2 diabetes mellitus 1285739567 42470 E11.65 Chronic ki dney disease stage 3 484897143 N18.30 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 3638233383 05 E11.22 Mixed hyperlipidemia 267 409765 E78.2 History of deep vein thrombosis 063069324 Z86.718 History of pulmonary embolus 233026271 Z86.711 Benign ess ential hypertension 1513085 I10 Vitamin D deficiency 347 31210 E55.9 Obesity 221717183 E66.9 Peripheral vascular disease 605364283 I73.9 Body mass index 25-29 - overweight 766266210 Z68.29 Peripheral neuropathy due to type 2 diabetes mellitus 0412921693 107 E11.42 [id number] Giovanni Glass MD [address] [place] [address] 04/27/2020 09:55:53 04/27/2020 10:28:31 Anticoagulant therapy 028296634 Z79.01 Warfarin m onitoring status 880543514 Z51.81 Long-term drug therapy 888441143 Z79.899 Deep venou s thrombosis 232842166 I82.409 Seborrheic dermatitis 50 910766 L21.9 [id number] Giovanni Glass MD [address] [place] [address] 05/25/2020 09:25:00 05/25/2020 09:58:13 Deep venous thrombosis 693170035 I82.409 Obesity 132187279 E66.9 Long-term current use of anticoagulant 391271434 Z79.01 Warfarin m onitoring status 475086558 Z51.81 Body mass index 25-29 - overweight 820275925 Z68.29 [id number] Giovanni Glass MD [address] [place] [address] 06/28/2020 08:27:16 06/28/2020 09:13:33 Warfarin monitoring status 875583362 Z51.81 Deep venou s thrombosis 483492161 I82.409 Long-term current use of anticoagulant 652917672 Z79.01 Body mass index 25-29 - overweight 384887743 Z68.28 [id number] Giovanni Glass MD [address] [place] [address] 07/26/2020 08:26:04 07/26/2020 09:23:56 Deep venous thrombosis 014731407 I82.409 Obesity 652854823 E66.9 Long-term current use of anticoagulant 521388837 Z79.01 Warfarin m onitoring status 755102626 Z51.81 Body mass index 25-29 - overweight 779321773 Z68.28 [id number] Marcelina Longo APRN [address] [place] [address] 08/01/2020 15:43:18 08/01/2020 16:45:43 Hyperglycemia due to type 2 diabetes mellitus 4342324096 34361 E11.65 Chronic ki dney disease stage 3 809534946 N18.30 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 7070902469 05 E11.22 Mixed hyperlipidemia 267 429593 E78.2 History of deep vein thrombosis 228903424 Z86.718 History of pulmonary embolus 341171238 Z86.711 Benign ess ential hypertension 4134297 I10 Vitamin D deficiency 347 48276 E55.9 Obesity 315097031 E66.9 Peripheral vascular disease 548600926 I73.9 Body mass index 25-29 - overweight 850375492 Z68.29 Peripheral neuropathy due to type 2 diabetes mellitus 4367946232 107 E11.42 [id number] Giovanni Glass MD [address] [place] [address] 08/24/2020 08:23:21 08/24/2020 09:45:54 Deep venous thrombosis 618043384 I82.409 Obesity 843592730 E66.9 Long-term current use of anticoagulant 214999174 Z79.01 Warfarin m onitoring status 913830708 Z51.81 Body mass index 25-29 - overweight 127529974 Z68.28 [id number] Giovanni Glass MD [address] [place] [address] 09/21/2020 08:35:33 09/21/2020 09:25:26 Deep venous thrombosis 501445518 I82.409 Long-term current use of anticoagulant 668619860 Z79.01 Warfarin m onitoring status 279212529 Z51.81 Candidiasis of skin 4988 3006 B37.2 Body mass index 25-29 - overweight 024880003 Z68.29 [id number] Giovanni Glass MD [address] 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 2530672751 05 E11.22 Mixed hyperlipidemia 267 402752 E78.2 History of deep vein thrombosis 558507876 Z86.718 History of pulmonary embolus 970138325 Z86.711 Benign ess ential hypertension 7437678 I10 Vitamin D deficiency 347 98571 E55.9 Obesity 716158202 E66.9 Peripheral vascular disease 650725254 I73.9 Body mass index 25-29 - overweight 797985013 Z68.28 Peripheral neuropathy due to type 2 diabetes mellitus 0188679802 107 E11.42 [id number] Giovanni Glass MD [address] [place] [address] 11/22/2020 09:35:52 11/22/2020 10:28:33 Deep venous thrombosis 444812118 I82.409 Obesity 142751959 E66.9 Long-term current use of anticoagulant 343405442 Z79.01 Warfarin m onitoring status 878957968 Z51.81 Body mass index 25-29 - overweight 509686422 Z68.28 [id number] Giovanni Glass MD [address] [place] [address] 12/20/2020 10:18:42 12/20/2020 11:03:46 Deep venous thrombosis 023457075 I82.409 Obesity 956747491 E66.9 Long-term current use of anticoagulant 941828473 Z79.01 Warfarin m onitoring status 181886273 Z51.81 Body mass index 25-29 - overweight 630151720 Z68.28 [id number] Giovanni Glass MD [address] [place] [address] 01/18/2021 10:07:38 01/18/2021 10:39:12 Deep venous thrombosis 753930680 I82.409 Obesity 972413374 E66.9 Long-term current use of anticoagulant 916585242 Z79.01 Warfarin m onitoring status 317421280 Z51.81 Body mass index 25-29 - overweight 128264381 Z68.29 [id number] Giovanni Glass MD [address] [place] [address] 02/15/2021 08:27:04 02/15/2021 09:28:29 Deep venous thrombosis 888020658 I82.409 Obesity 876333046 E66.9 Warfarin m onitoring status 474732184 Z51.81 Long-term current use of anticoagulant 542827457 Z79.01 Body mass index 25-29 - overweight 876799328 Z68.28 [id number] Marcelina Longo APRN [address] [place] [address] 02/21/2021 08:15:03 02/21/2021 08:56:54 Peripheral neuropathy due to type 2 diabetes mellitus 2800905772 107 E11.42 Type 2 joaquin betes mellitus without complication 702679851 E11.9 Hyperglyce nhan due to type 2 diabetes mellitus 1361965008 61865 E11.65 Chronic ki dney disease stage 3 110999269 N18.30 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 4583512355 05 E11.22 Mixed hyperlipidemia 267 155582 E78.2 History of deep vein thrombosis 210086711 Z86.718 History of pulmonary embolus 052204695 Z86.711 Benign ess ential hypertension 1779311 I10 Vitamin D deficiency 347 73443 E55.9 Obesity 110681342 E66.9 Peripheral vascular disease 693005574 I73.9 Body mass index 25-29 - overweight 449823270 Z68.28 Screening for malignant neoplasm of colon 220705591 Z12.11 [id number] Giovanni Glass MD [address] [place] [address] 03/21/2021 13:20:41 03/21/2021 14:15:05 Deep venous thrombosis 539260675 I82.409 Obesity 490924136 E66.9 Administra tion of influenza vaccine 02348627 Z23 Long-term current use of anticoagulant 126470928 Z79.01 Warfarin m onitoring status 337306665 Z51.81 Body mass index 25-29 - overweight 332048848 Z68.29 [id number] Giovanni Glass MD [address] [place] [address] 04/18/2021 12:35:38 04/18/2021 13:14:27 Deep venous thrombosis 120565232 I82.409 Obesity 556263811 E66.9 Long-term current use of anticoagulant 166457890 Z79.01 Warfarin m onitoring status 475929227 Z51.81 Body mass index 25-29 - overweight 880655917 Z68.29 [id number] Giovanni Glass MD [address] [place] [address] 7 05/02/2021 15:32:56 05/02/2021 16:17:56 Viral screening 684435658 Z11.52 Acute bronchitis 5741404 2 J20.9 [id number] Giovanni Glass MD [address] [place] [address] 7 05/18/2021 14:57:14 05/18/2021 15:36:22 Deep venous thrombosis 890771681 I82.409 Long-term current use of anticoagulant 242929459 Z79.01 Warfarin m onitoring status 257694681 Z51.81 Body mass index 25-29 - overweight 962582442 Z68.28 [id number] Marcelina Longo APRN [address] [place] [address] 7 05/23/2021 10:17:46 05/23/2021 11:45:50 Peripheral neuropathy due to type 2 diabetes mellitus 2808266739 107 E11.42 Hyperglyce nhan due to type 2 diabetes mellitus 6062503097 58067 E11.65 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 4527606598 05 E11.22 Mixed hyperlipidemia 267 692122 E78.2 History of deep vein thrombosis 004766342 Z86.718 History of pulmonary embolus 760701369 Z86.711 Benign ess ential hypertension 6406939 I10 Vitamin D deficiency 347 82393 E55.9 Obesity 382320342 E66.9 Peripheral vascular disease 632997967 I73.9 Body mass index 25-29 - overweight 400567556 Z68.27 [id number] Giovanni Glass MD [address] [place] [address] 06/21/2021 10:17:28 06/21/2021 11:12:02 Deep venous thrombosis 743086740 I82.409 Obesity 844010354 E66.9 Administra tion of SARS-CoV-2 antigen vaccine 363082059 Z23 Long-term current use of anticoagulant 007822006 Z79.01 Warfarin m onitoring status 956247839 Z51.81 Body mass index 25-29 - overweight 837015053 Z68.28 [id number] Marcelina Longo APRN [address] [place] [address] 08/29/2021 09:04:01 08/29/2021 09:49:16 Hyperglycemia due to type 2 diabetes mellitus 8655595087 54151 E11.65 Peripheral neuropathy due to type 2 diabetes mellitus 2907182854 107 E11.42 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 5232845982 05 E11.22 Mixed hyperlipidemia 267 231497 E78.2 History of deep vein thrombosis 260638038 Z86.718 History of pulmonary embolus 973495006 Z86.711 Benign ess ential hypertension 4825223 I10 Vitamin D deficiency 347 50326 E55.9 Obesity 464536757 E66.9 Peripheral vascular disease 519722513 I73.9 Body mass index 25-29 - overweight 399345874 Z68.27 Nocturia 512457177 R35.1 Fatigue 35381270 R53.83 [id number] Giovanni Glsas MD [address] [place] [address] 08/10/2021 14:07:10 08/10/2021 14:40:09 Deep venous thrombosis 697145315 I82.409 Long-term current use of anticoagulant 936843873 Z79.01 Warfarin m onitoring status 248897087 Z51.81 Body mass index 25-29 - overweight 977924175 Z68.28 [id number] Giovanni Glass MD [address] [place] [address] 09/07/2021 12:19:11 09/07/2021 13:14:16 Deep venous thrombosis 982488432 I82.409 Obesity 898167379 E66.9 Long-term current use of anticoagulant 047589026 Z79.01 Warfarin m onitoring status 629229348 Z51.81 Acute sinusitis 80645500 J01.90 Body mass index 25-29 - overweight 939479423 Z68.28 [id number] Giovanni Glass MD [address] [place] [address] 10/10/2021 08:51:39 10/10/2021 09:44:59 Deep venous thrombosis 256762045 I82.409 Obesity 427844943 E66.9 Long-term current use of anticoagulant 756248254 Z79.01 Warfarin m onitoring status 837734868 Z51.81 Seborrheic dermatitis 50 801437 L21.9 Body mass index 25-29 - overweight 026865310 Z68.28 [id number] Giovanni Glass MD [address] [place] [address] 11/08/2021 10:02:43 11/08/2021 10:43:21 Deep venous thrombosis 747885782 I82.409 Long-term current use of anticoagulant 686098859 Z79.01 Warfarin m onitoring status 787680519 Z51.81 Body mass index 25-29 - overweight 636272357 Z68.28 [id number] Giovanni Glass MD [address] [place] [address] 11/28/2021 09:29:34 11/28/2021 11:26:06 Obesity 519711138 E66.9 Impacted c erumen in left ear 5141591471 475628 H61.22 resolved [id number] Marcelina Longo [address] [place] [address] 12/03/2021 14:04:14 12/03/2021 14:28:38 Hyperglycemia due to type 2 diabetes mellitus 3070646925 38831 E11.65 Peripheral neuropathy due to type 2 diabetes mellitus 7994287352 107 E11.42 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 5570344095 05 E11.22 Mixed hyperlipidemia 267 180861 E78.2 History of deep vein thrombosis 020936291 Z86.718 History of pulmonary embolus 513564721 Z86.711 Benign ess ential hypertension 7581730 I10 Vitamin D deficiency 347 29110 E55.9 Obesity 747896556 E66.9 Peripheral vascular disease 312477370 I73.9 Body mass index 25-29 - overweight 489516473 Z68.27 [id number] Marcelina Longo [address] [place] [address] 03/06/2022 12:28:18 03/06/2022 13:27:06 Hyperglycemia due to type 2 diabetes mellitus 0280732427 55696 E11.65 Peripheral neuropathy due to type 2 diabetes mellitus 6579138787 107 E11.42 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 0252758051 05 E11.22 Mixed hyperlipidemia 267 019485 E78.2 History of deep vein thrombosis 215702682 Z86.718 History of pulmonary embolus 928353966 Z86.711 Benign ess ential hypertension 5827994 I10 Vitamin D deficiency 347 86594 E55.9 Obesity 255563900 E66.9 Peripheral vascular disease 953550365 I73.9 Body mass index 25-29 - overweight 449034068 Z68.27 Influenza vaccine needed 1104019164 106 Z23 [id number] Marcelina Longo [address] [place] [address] 06/13/2022 10:11:04 06/13/2022 11:27:51 Hyperglycemia due to type 2 diabetes mellitus 1277332800 96600 E11.65 Peripheral neuropathy due to type 2 diabetes mellitus 1460730449 107 E11.42 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 5758887448 05 E11.22 Mixed hyperlipidemia 267 435927 E78.2 History of deep vein thrombosis 759799638 Z86.718 History of pulmonary embolus 274682520 Z86.711 Benign ess ential hypertension 1994728 I10 Vitamin D deficiency 347 99609 E55.9 Obesity 505456441 E66.9 Peripheral vascular disease 940887630 I73.9 Body mass index 25-29 - overweight 723487848 Z68.27 [id number] Giovanni Glass MD [address] [place] [address] 09/04/2022 13:05:58 09/04/2022 14:21:20 Benign essential hypertension 8802759 I10 Chronic ki dney disease stage 3 016004270 N18.30 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 2236330671 05 E11.22 Deep venou s thrombosis 880051361 I82.409 Essential hypertension 56719168 I10 History of deep vein thrombosis 769881681 Z86.718 Hyperglyce nhan due to type 2 diabetes mellitus 1044980710 76788 E11.65 Hyperlipidemia 06234455 E78.5 Mixed hyperlipidemia 267 933318 E78.2 Obesity 058487454 E66.9 Peripheral neuropathy due to type 2 diabetes mellitus 8127554757 107 E11.42 Peripheral vascular disease 984082379 I73.9 Testicular hypofunction 940050919 E29.1 Vitamin D deficiency 347 12530 E55.9 Contusion of left upper arm 1010036933 0062869 S40.022A Contusion of left lower leg 5150059888 1456784 S80.12XA Body mass index 25-29 - overweight 143080222 Z68.27 [id number] Marcelina Longo APRN [address] [place] [address] 09/25/2022 09:16:08 09/25/2022 09:56:58 Hyperglycemia due to type 2 diabetes mellitus 9477660911 20632 E11.65 Benign ess ential hypertension 9376538 I10 Obesity 752846367 E66.9 Peripheral vascular disease 940556739 I73.9 Body mass index 25-29 - overweight 849776151 Z68.27 Peripheral neuropathy due to type 2 diabetes mellitus 6193310972 107 E11.42 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 5101017458 05 E11.22 Mixed hyperlipidemia 267 330637 E78.2 History of deep vein thrombosis 229160871 Z86.718 History of pulmonary embolus 644815744 Z86.711 Vitamin D deficiency 347 99805 E55.9 [id number] Giovanni Glass MD [address] [place] [address] 09/26/2022 09:22:53 09/26/2022 09:50:53 Benign essential hypertension 3031790 I10 Obesity 851211476 E66.9 Body mass index 25-29 - overweight 301140674 Z68.27 [id number] Marcelina Longo APRN [address] [place] [address] 01/02/2023 09:44:35 01/02/2023 10:11:08 Hyperglycemia due to type 2 diabetes mellitus 2866752317 40473 E11.65 Benign ess ential hypertension 1702332 I10 Obesity 669242706 E66.9 Peripheral vascular disease 344524711 I73.9 Body mass index 25-29 - overweight 749810815 Z68.27 Peripheral neuropathy due to type 2 diabetes mellitus 5101504169 107 E11.42 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 1706892053 05 E11.22 Mixed hyperlipidemia 267 417623 E78.2 History of deep vein thrombosis 798200499 Z86.718 History of pulmonary embolus 732302452 Z86.711 Vitamin D deficiency 347 12761 E55.9 [id number] Giovanni Glass MD [address] [place] [address] 03/13/2023 09:36:10 03/13/2023 09:47:21 Influenza vaccine needed 9477876645 106 Z23 [id number] Marcelina Longo [employer] [address] [place] [address] 04/08/2023 10:00:56 04/08/2023 11:35:24 Hyperglycemia due to type 2 diabetes mellitus 6615631866 35469 E11.65 Benign ess ential hypertension 7158784 I10 Obesity 004521945 E66.9 Peripheral vascular disease 730746802 I73.9 Body mass index 25-29 - overweight 773977984 Z68.27 Peripheral neuropathy due to type 2 diabetes mellitus 7908359377 107 E11.42 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 6531428028 05 E11.22 Mixed hyperlipidemia 267 565492 E78.2 History of deep vein thrombosis 245601860 Z86.718 History of pulmonary embolus 139835648 Z86.711 Vitamin D deficiency 347 62622 E55.9 [id number] Marcelina Longo [address] [place] [address] 07/24/2023 11:45:38 07/24/2023 12:29:24 Hyperglycemia due to type 2 diabetes mellitus 8765993801 00077 E11.65 Benign ess ential hypertension 2013930 I10 Obesity 424925798 E66.9 Peripheral vascular disease 768635246 I73.9 Body mass index 25-29 - overweight 042206847 Z68.27 Peripheral neuropathy due to type 2 diabetes mellitus 2423076239 107 E11.42 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 0850857339 05 E11.22 Mixed hyperlipidemia 267 911420 E78.2 History of deep vein thrombosis 185541111 Z86.718 History of pulmonary embolus 585340207 Z86.711 Vitamin D deficiency 347 70604 E55.9 [id number] Marcelina Longo [address] [place] [address] 10/22/2023 12:16:19 10/22/2023 13:59:48 Hyperglycemia due to type 2 diabetes mellitus 2568921127 76703 E11.65 Benign ess ential hypertension 0130049 I10 Obesity 384538311 E66.9 Peripheral vascular disease 898615762 I73.9 Body mass index 25-29 - overweight 044831363 Z68.25 Peripheral neuropathy due to type 2 diabetes mellitus 3555695333 107 E11.42 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 3697263615 05 E11.22 Mixed hyperlipidemia 267 020533 E78.2 History of deep vein thrombosis 589595187 Z86.718 History of pulmonary embolus 648757293 Z86.711 Vitamin D deficiency 347 55802 E55.9 Nocturia 273645090 R35.1 Type 2 joaquin betes mellitus without complication 598991789 E11.9 Iron defic iency anemia 09555462 D50.9 [id number] Giovanni Glass MD [address] [place] [address] 11/13/2023 12:25:04 11/13/2023 13:16:26 Benign essential hypertension 6829025 I10 Deep venou s thrombosis 200580946 I82.409 Peripheral neuropathy due to type 2 diabetes mellitus 2998168382 107 E11.42 History of deep vein thrombosis 551717070 Z86.718 History of pulmonary embolus 995881701 Z86.711 Mixed hyperlipidemia 267 463264 E78.2 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 9339919087 05 E11.22 Essential hypertension 89259141 I10 Hyperlipidemia 69907152 E78.5 Obesity 982409160 E66.9 Peripheral vascular disease 445130579 I73.9 Hyperglyce nhan due to type 2 diabetes mellitus 7879197547 33962 E11.65 Vitamin D deficiency 347 22376 E55.9 Angina pectoris 61482266 0 I20.9 Body mass index 20-24 - normal 269198882 Z68.23 [id number] Marcelina Longo APRN [address] [place] [address] 01/21/2024 10:11:47 01/21/2024 11:03:50 Hyperglycemia due to type 2 diabetes mellitus 7762089742 97458 E11.65 Benign ess ential hypertension 3016526 I10 Obesity 038673968 E66.9 Peripheral vascular disease 415547940 I73.9 Body mass index 25-29 - overweight 936964238 Z68.25 Peripheral neuropathy due to type 2 diabetes mellitus 7581082097 107 E11.42 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 4475007360 05 E11.22 Mixed hyperlipidemia 267 839232 E78.2 History of deep vein thrombosis 116229565 Z86.718 History of pulmonary embolus 474879022 Z86.711 Vitamin D deficiency 347 40016 E55.9 Iron defic iency anemia 60066711 D50.9 Prostate s pecific antigen above reference range 206916912 R97.20 [id number] Giovanni Glass MD [address] [place] [address] 02/13/2024 10:43:49 02/13/2024 11:15:41 Benign essential hypertension 1989747 I10 Essential hypertension 82870780 I10 Body mass index 25-29 - overweight 425807941 Z68.26 [id number] Kat Waldrop [facility] [address] [place] [address] 02/25/2024 08:54:25 02/25/2024 10:27:07 Essential hypertension 78188715 I10 History of pulmonary embolus 784424890 Z86.711 History of deep vein thrombosis 332927478 Z86.718 Chronic ki dney disease stage 4 925902161 N18.4 Prostate s pecific antigen above reference range 370467590 R97.20 Sensation as if urinary bladder still full 449218701 R39.14 [id number] Kat Waldrop [facility] [address] [place] [address] 03/30/2024 11:02:56 03/30/2024 12:16:32 Prostate specific antigen above reference range 573717393 R97.20 Chronic ki dney disease stage 4 345464489 N18.4 Essential hypertension 93802938 I10 History of pulmonary embolus 523428734 Z86.711 History of deep vein thrombosis 020804112 Z86.718 Sensation as if urinary bladder still full 694117954 R39.14 Benign pro static hyperplasia with outflow obstruction 339183219 N40.1 Retention of urine 61450 4002 R33.9 Multiple renal cysts 253 358100 N28.1 [id number] Shahnaz Herman [employer] [address] [place] [address] 03/09/2024 11:23:07 03/09/2024 11:52:42 Influenza vaccine needed 6559702064 106 Z23 [id number] Giovanni Glass MD [address] [place] [address] 05/19/2024 12:20:48 05/19/2024 13:44:09 Adult health examination 940612796 Z00.00 Depression screening 171 014627 Z13.31 A depression screening was completed via a standardiz ed screening tool. 5 minutes were spent discussing depression screening results and risk factors. Examinatio n of blood pressure 811351973 Z01.30 Diet education 89312848 Z71.3 Counseling 103338872 Z71 .82 Exercise counseling . Patient encouraged to exercise 30 minutes 5 days a week. At [facility] ed risk for falls 449621692 Z91.81 STEADI FAST screening score of ___11__. Advance care planning 71 7085690 Z71.89 Testicular hypofunction 302553798 E29.1 Benign ess ential hypertension 8843255 I10 Deep venou s thrombosis 476285292 I82.409 Peripheral neuropathy due to type 2 diabetes mellitus 8570884000 107 E11.42 History of deep vein thrombosis 204490337 Z86.718 History of pulmonary embolus 076428228 Z86.711 Mixed hyperlipidemia 267 290310 E78.2 Vitamin D deficiency 347 02160 E55.9 Hyperglyce nhan due to type 2 diabetes mellitus 1631882551 42987 E11.65 Peripheral vascular disease 957156905 I73.9 Chronic ki dney disease stage 3 053050459 N18.30 Hyperlipidemia 06331004 E78.5 Essential hypertension 34846084 I10 Obesity 653476228 E66.9 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 9304539112 05 E11.22 Administra tion of diphtheria, pertussis, and tetanus vaccine 631381397 Z23 Administra tion of pneumococcal vaccine 80947460 Z23 Body mass index 25-29 - overweight 471149957 Z68.25 [id number] Giovanni Glass MD [address] [place] [address] 05/26/2024 10:00:13 05/26/2024 10:33:22 Benign essential hypertension 4530588 I10 Orthostati c hypotension 22577244 I95.1 Body mass index 25-29 - overweight 575714847 Z68.25 [id number] Marcelina Longo APRN [address] [place] [address] 06/21/2024 15:49:46 06/21/2024 16:39:13 Hyperglycemia due to type 2 diabetes mellitus 9764777969 69372 E11.65 Benign ess ential hypertension 3493458 I10 Obesity 095845139 E66.9 Peripheral vascular disease 390501713 I73.9 Body mass index 25-29 - overweight 982758833 Z68.25 Peripheral neuropathy due to type 2 diabetes mellitus 7608431113 107 E11.42 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 8129004272 05 E11.22 Mixed hyperlipidemia 267 538236 E78.2 History of deep vein thrombosis 092982093 Z86.718 History of pulmonary embolus 858656486 Z86.711 Vitamin D deficiency 347 92853 E55.9 Iron defic iency anemia 12369958 D50.9 Prostate s pecific antigen above reference range 606868095 R97.20 [id number] Giovanni Glass MD [address] [place] [address] 08/18/2024 13:18:55 08/18/2024 14:01:40 Testicular hypofunction 848473871 E29.1 Benign ess ential hypertension 7661643 I10 Deep venou s thrombosis 978036949 I82.409 Peripheral neuropathy due to type 2 diabetes mellitus 3963547948 107 E11.42 Mixed hyperlipidemia 267 785962 E78.2 Vitamin D deficiency 347 13737 E55.9 Hyperglyce nhan due to type 2 diabetes mellitus 7160518637 54350 E11.65 Impotence 695385792 F52. 21 Peripheral vascular disease 085141355 I73.9 Chronic ki dney disease stage 3 299005818 N18.30 Obesity 764644227 E66.9 Hyperlipidemia 95058501 E78.5 Essential hypertension 61792807 I10 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 6665470309 05 E11.22 History of deep vein thrombosis 685427586 Z86.718 History of pulmonary embolus 645585182 Z86.711 Body mass index 25-29 - overweight 512413109 Z68.26 [id number] Marcelina Longo [address] [place] [address] 09/21/2024 14:33:55 09/21/2024 15:06:41 Hyperglycemia due to type 2 diabetes mellitus 4140037775 43684 E11.65 Benign ess ential hypertension 6942171 I10 Obesity 505516638 E66.9 Peripheral vascular disease 286050461 I73.9 Body mass index 25-29 - overweight 788471915 Z68.25 Peripheral neuropathy due to type 2 diabetes mellitus 0687434421 107 E11.42 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 7339118520 05 E11.22 Mixed hyperlipidemia 267 746445 E78.2 History of deep vein thrombosis 637723685 Z86.718 History of pulmonary embolus 700175157 Z86.711 Vitamin D deficiency 347 31378 E55.9 Iron defic iency anemia 68513869 D50.9 Prostate s pecific antigen above reference range 954566057 R97.20 Upper resp iratory tract finding 220023504 R09.89 [id number] Kat Carnes [address] [place] [address] 10/20/2024 15:02:41 10/20/2024 16:34:21 Pruritic dermatitis 4499202869 L30.8 [id number] Marcelina Longo [address] [place] [address] 11/09/2024 14:16:39 11/09/2024 15:37:06 Hyperglycemia due to type 2 diabetes mellitus 4230057460 66517 E11.65 Benign ess ential hypertension 9483980 I10 Obesity 602045751 E66.9 Peripheral vascular disease 668234154 I73.9 Body mass index 25-29 - overweight 662106541 Z68.25 Peripheral neuropathy due to type 2 diabetes mellitus 3382158910 107 E11.42 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 7909232761 05 E11.22 Mixed hyperlipidemia 267 926552 E78.2 History of deep vein thrombosis 503232600 Z86.718 History of pulmonary embolus 374870160 Z86.711 Vitamin D deficiency 347 13594 E55.9 Iron defic iency anemia 30421375 D50.9 Prostate s pecific antigen above reference range 908884737 R97.20 Dizziness 013223050 R42 [id number] Giovanni Glass MD [address] [place] [address] 11/24/2024 12:29:33 11/24/2024 13:35:06 Testicular hypofunction 478469484 E29.1 Benign ess ential hypertension 4765533 I10 Deep venou s thrombosis 569926402 I82.409 Peripheral neuropathy due to type 2 diabetes mellitus 4511031592 107 E11.42 History of pulmonary embolus 174819255 Z86.711 Mixed hyperlipidemia 267 365408 E78.2 Obesity 715073784 E66.9 Peripheral vascular disease 513564535 I73.9 Impotence 650260877 F52. 21 Hyperglyce nhan due to type 2 diabetes mellitus 5139147511 56529 E11.65 Vitamin D deficiency 347 29465 E55.9 Essential hypertension 79323719 I10 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 0303781655 05 E11.22 Hyperlipidemia 12750852 E78.5 Dyspnea on exertion 6084 5006 R06.09 Overweight in adulthood with body mass index of 25 or more but less than 30 090374567 Z68.25 Health Concerns Section Related Observation LastModified by Organization Detai ls LastModified Time None Recorded Concern Status LastModified by Organization Details LastModified Time None Recorded Advance Directives Directive N: declines info Payers Insurance Date Sequence Insurance Name Policy Number Policy Mcintyre Covered Member ID Mcintyre Member ID Guarantor Name 06/12/2016 2 UNSPECIFIED REMIT PAYOR Owen Salazar 11/24/2024 [employer] (MEDICARE REPLACEMENT/AD VANTAGE - PPO) Owen Salazar [id number] Owen Salazar 11/24/2024 1 [employer] (PPO) Owen Salazar [id number] Owen Salazar 11/24/2024 3 [employer] (MEDICARE SUPPLEMENT) [id number] Owen Salazar [id number] Owen Salazar 11/21/2016 2 UNSPECIFIED REMIT PAYOR Owen Salazar 11/24/2024 2 [employer] (MEDICARE SUPPLEMENT) Owen Salazar [id number] Owen Salazar 12/07/2024 1 [employer] (MEDICARE REPLACEMENT/AD VANTAGE - PPO) Owen Salazar [id number] Owen Salazar 11/24/2024 1 [place] Saul Salazar [id number] Owen Salazar 11/24/2024 2 [place] [id number] Owen Salazar [id number] Owen Salazar 11/24/2024 1 [place] Saul Salazar [id number] Owen Salazar 11/24/2024 [employer] [place] - [facility] (MEDICARE) Oewn Salazar [id number] Owen Salazar 03/02/2018 2 UNSPECIFIED REMIT PAYOR Owen Salazar Notes Date Note Type Note Provider Name and Address Organization Details Recorded Time 08/18/2024 text/html Here for check u kenzie Feels well. Giovanni Glass MD [facility] [address], [place], [address], [place] - [facility] 08/18/2024 13:59:15 09/21/2024 text/html Saul presents f or 3 month follow up on his type 2 diabetes. He is currently on Ozempic 2 mg injection weekly, Glipizide 10 mg BID, and Lantus 30 units QAM. His last hgb a1c was 7.4%. Today it is 8.2%. In reviewing his glucose meter download, his 14 day glucose average is 174. No hypoglycemia. 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 Last diabetic eye exam from 12/08/2023 was negative for retinopathy. His PCP is Dr. Glass. He sees chemical technician, Dr. Moser, every 3 months. He refuses colonoscopy or cologuard. Last PSA from 12/22/2023 was elevated so I referred him to urology. Chronic issues reviewed and stable. Marcelina Longo, [employer] [address], [place], [address], [facility] - [facility] 09/21/2024 15:06:50 10/20/2024 text/html Owen is an 84 yom who presents to the clinic for an itchy Rash on both hands and both arms x 2 days. No changes in detergent, no recent exposures to irritants. No drainage, no fever. Kat Carnes, [employer] [address], [place], [address], [facility] - [facility] 10/21/2024 23:21:45 11/09/2024 text/html Saul presents f or dizziness X 3 days. States that every time he stands up or walks, he gets dizzy and weak. Also c/o SOB with walking. States he is having problems finding his words. He thought it was a side effect of his BP meds but he has stopped taking them with no improvement in symptoms. BP today is stable. For diabetes, he is currently on Ozempic 2 mg injection weekly, Glipizide 10 mg BID, and Lantus 30 units QAM. His last hgb a1c was 8.2%. 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 Last diabetic eye exam from 12/08/2023 was negative for retinopathy. His PCP is Dr. Glass. He sees chemical technician, Dr. Moser, every 3 months. He refuses colonoscopy or cologuard. Last PSA from 12/22/2023 was elevated so I referred him to urology. Chronic issues reviewed and stable. Marcelina Longo, [employer] [address], [place], [address], [facility] - [facility] 11/09/2024 15:00:19 11/24/2024 text/html C/O dyspnea with exertion. No chest pain, pressure, heaviness. Had abnormal CXR years ago and wants repeat. Dr. Pickard wanted to send to [place] for ht cath but he declined. Giovanni Glass MD [address], [place], [address], [place] - [facility] 11/24/2024 13:29:21
--- OUTSIDE RECORDS SUMMARY | 2024-12-22 11:33 | XMS_ITS | Continuity of Care Document ---
Author Organization [facility] Address [address] [place] [address] Assessment No assessment recorded. Plan of Treatment Reminders Order Date Submit Date Provider Last Modified By Organization Details Last Modified Time Details Appointments ESTABLISH ED PT 30 2024 10:00A M Marcelina Longo APRN Not available Not available Not available Lab None recorded. Referral None recorded. Procedures None recorded. Surgeries None recorded. Imaging None recorded. Medication Orders None recorded. Patient TargetsNo targets recorded. Patient Instructions Encounter Date Encounter Id Patient Instructions Last Modified By Organization Details Last Modified Time 11/09/2024 [id number] Peripheral Arterial Disease (PAD): Care Instructions rjessee [...] available 11/09/2024 14:59:39 Had his son justine [place] him on over to the ER. rjessee Not available 11/09/2024 14:58:37 Reason for Referral None Reported. Results Created Date Observation Date Name Description Value Unit Range Abnormal Flag Note LastModifiedBy Organization Detail LastModifiedTime 11/25/19 25 XR, chest , 2 view No observ ation record ed. [place] [employer] [facility] Report Developer [address] [facility] , [place], [address], 11/24/2024 16:35:31 Result Notes None recorded. Problems Name Problem SNOMED Code Status Onset Date Resolution Date Notes Provider Name and Address Organization Details Recorded Time Essential hypertens ion 10301580 Active 2015 Not Available [facility] 3 11:37:22 Deep venous thrombosi s 015887097 Active 2015 Not Available [facility] 3 11:37:22 Type 2 diabetes mellitus 48735520 Completed 201505/23/2021 Marcelina Longo, COMMISSARY STEWARD [address], [place], [address] , [facility] - [facility] 1 10:42:42 Hyperlipi demia 70459216 Active 2015 Not Available [facility] 3 11:37:22 Impotence Active 2015 Not Available [facility] 3 11:37:22 Long-term current use of anticoagu lant 598366142 Active 2015 Not Available [facility] 3 11:37:22 Obesity 308791279 Active 2015 Not Available [facility] 3 11:37:22 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 Not Available [facility] 3 11:37:22 Periphera l vascular disease 583400880 Active 2015 Not Available [facility] 3 11:37:22 Pulmonary embolism 72318388 Completed 201504/08/2016 Paula sheridanIRONSIDE, [place] - [facility] 6 13:01:47 Vitamin D deficienc y 82272967 Active 2020 Not Available [facility] 3 11:37:22 Hyperglyc emia due to type 2 diabetes mellitus 15058280862 9109 Active 2020 Not Available [facility] 3 11:37:22 Chronic kidney disease stage 3 314089946 Active 2020 Not Available [facility] 3 11:37:22 Chronic ki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 75804268695 5 Active 2020 Not Available [facility] 3 11:37:22 Mixed hyperlipi demia 507190331 Active 2020 Not Available [facility] 3 11:37:22 History of deep vein thrombosi s 168754350 Active 2020 Not Available [facility] 3 11:37:22 History of pulmonary embolus 696217846 Active 2020 Not Available [facility] 3 11:37:22 Benign essential hypertens ion 4993797 Active 2020 Not Available [facility] 3 11:37:22 Periphera l neuropath y due to type 2 diabetes mellitus 52837772869 07 Active 2020 Not Available [facility] 3 11:37:22 Warfarin monitorin g status 024406786 Active 2016 Not Available [facility] 3 11:37:22 Pruritic dermatiti s Active 2024 Kat Carnes, [employer]ISS[employer]EWARD [address], [place], [address] , [place] - [facility] 5 16:20:33 Problem Notes None recorded. Procedures Surgical History Date Name Laterality Status Provider Name and Address Organization Details Recorded Time 09/22/19 25 A1C level 8.0 to 9.0 completed Clive Sung [place] - [facility] 09/21/2024 14:59:34 05/19/20 24 Advance Care Planning completed Paula Gee [place] - [facility] 05/19/2024 12:54:25 05/19/20 24 Functional Status Assessed completed Paula Gee [place] - [facility] 05/19/2024 12:54:25 01/21/20 24 Positive Microalbumin completed Clive Sung [place] [facility] 01/21/2024 10:44:25 01/21/20 24 A1C level 6.9 and below completed Clive Sung [place] [facility] 01/21/2024 10:48:27 10/22/19 24 A1C level 6.9 and below completed CliveLulu Sarmientoyles - [facility] 10/22/2023 13:05:51 07/24/19 24 A1C level 8.0 to 9.0 [facility] 07/24/2023 11:56:27 04/08/20 23 A1C level 6.9 and below completed Clive Pineda - [facility] 04/08/2023 11:20:15 09/05/19 23 Medication Reconcilliation completed Paula Gee [place] - [facility] 09/04/2022 13:11:20 06/13/19 23 A1C level 7.0 to 7.9 completed CliveLulu Sarmientoyles - [facility] 06/13/2022 11:10:06 03/06/20 22 A1C level 7.0 to 7.9 completed CliveLulu Sarmientoyles - [facility] 03/06/2022 13:11:24 12/04/19 22 A1C level 7.0 to 7.9 completed Clive Pineda - [facility] 12/03/2021 14:19:16 11/29/19 22 Cerumen Removal completed Giovanni Glass MD [address], [place], [address] [place] - [facility] 11/28/2021 10:57:35 08/30/19 22 Positive Microalbumin completed CliveLulu Sarmientoyles - [facility] 08/29/2021 09:20:08 08/30/19 22 A1C level 7.0 to 7.9 completed Clive Pineda - [facility] 08/29/2021 09:23:03 05/23/20 21 A1C level 7.0 to 7.9 completed Clive Pineda - [facility] 05/23/2021 10:41:28 02/22/20 21 A1C level 7.0 to 7.9 completed Clive Sarmientoyles - [facility] 02/21/2021 08:38:20 11/03/19 21 A1C level 7.0 to 7.9 completed Myah Ontiveros - [facility] 11/02/2020 13:15:09 08/25/19 21 Diastolic B/P less than 80 mm Hg completed Paula Gee [email or web address] - [facility] 08/24/2020 09:28:23 08/25/19 21 Systolic B/P 130-139 mm Hg completed Paula Hay [place] - [facility] 08/24/2020 09:28:20 08/01/19 21 Diastolic B/P less than 80 mm Hg completed Myah Rama [place] - [facility] 08/01/2020 16:31:17 08/01/19 21 Systolic B/P 130-139 mm Hg completed Myah Taft [place] - [facility] 08/01/2020 16:31:11 08/01/19 21 A1C level 7.0 to 7.9 completed Myah Taft [place] - [facility] 08/01/2020 16:34:05 07/26/19 21 [...] less than 130 mm Hg completed Myah Rama [place] [facility] 04/18/2020 16:34:12 04/18/20 20 Diastolic B/P less than 80 mm Hg completed Myah Taft [place] [facility] 04/18/2020 16:34:19 04/18/20 20 A1C level 7.0 to 7.9 completed Myah Rama [place] [facility] 04/18/2020 16:36:39 03/22/20 20 [...] completed Paula Hay [place] [facility] 10/08/2019 13:44:01 09/08/19 20 Systolic B/P less than 130 mm Hg completed Paula Hay [place] [facility] 09/08/2019 12:57:34 09/08/19 20 Diastolic B/P less than 80 mm Hg completed Paula [place] [facility] 09/08/2019 12:57:39 08/11/19 20 Systolic B/P less than 130 mm Hg completed Paula Hay [place] [facility] 08/11/2019 13:09:51 08/11/19 20 Diastolic B/P 80-89 mm Hg completed Paula Hay [place] [facility] 08/11/2019 13:09:55 06/10/19 20 Systolic B/P less than 130 mm Hg completed Paula Hay [place] [facility] 06/10/2019 12:57:49 06/10/19 20 Diastolic B/P 80-89 mm Hg completed Paula Hay [place] [facility] 06/10/2019 12:57:53 10/25/19 18 Advance Care Planning completed Corine Welch RN [address], [place], [address], [place] [facility] 10/24/2017 08:56:49 Cataract Surgery completed Corine Welch RN [address], [place], [address], [facility] - [facility] 10/24/2017 09:14:03 Imaging Results None recorded. Procedure [...] Disconti nued on: 01/17/20 11 10:04AM; User: Harrison Wilks on: 07/09/19 12 Not Available Not Available Not Available clarithro mycin 500 mg tablet take 1 tablet (500 mg) by oral route 2 times per day for 10 days 02/03 completed clarithr omycin 500 mg oral tablet;R ecorded Status: Recorded on: 06/14/19 09 3:27PM;D iscontin ued Status: Disconti nued on: 02/04/20 09 12:54PM; User: tiffanie Wilks on: 06/24/19 09;Print ed: 06/14/19 09 Not Available Not Available Not Available Glucovanc e 5 mg-500 mg tablet take 1 tablet by oral route 2 times per day with meals for 30 days 01/10 completed Glucovan ce 5-500 mg oral tablet;R ecorded Status: Recorded on: 01/10/20 11 1:39PM;D iscontin ued Status: Disconti nued on: 01/11/20 11 3:55PM;U ser: varunEst Sam Completi on: 04/09/20 11 Not Available Not Available Not Available Keflex 500 mg capsule take 1 capsule (500 mg) by oral route every 12 hours for 10 days 05/12 completed Keflex 500 mg oral capsule; Recorded Status: Recorded on: 04/18/20 08 11:01AM; Disconti nued Status: Disconti nued on: 05/12/20 08 3:46PM;U ser: Tima Glynni on: 04/28/20 08;Print ed: 04/18/20 08 Not Available Not Available Not Available Avelox 400 mg tablet take 1 tablet (400 mg) by oral route once daily for 10 days 10/15 completed Avelox 400 mg oral tablet;R ecorded Status: Recorded on: 10/16/19 12 9:37AM;D iscontin ued Status: Disconti nued on: 10/16/19 12 11:38AM; User: jadyn ;Est. Completi on: 11/05/19 12;Indic ation: Bronchit is, [...] nued on: 08/03/19 11 9:03AM;U ser: luis Est. Completi on: 06/16/19 11;Print ed: 06/11/19 [...] 16;Indic ation: Muscle Spasm - ([phone] 50);Phar macyVeri fied: 10/18/19 16 10:20AM Not Available Not [...] 16 9:04AM;U ser: haym;Est . Completi on: 11/02/19 13 Not Available [...] ser: earlywin ec;Est. Completi on: 07/06/19 15;Pharm acyVania ied: 01/08/20 14 4:26PM Not Available Not [...] Available Not Available Nasonex 50 mcg/actua tion [place] 1 sniff bilat bid 09/15 completed Nasonex 50 mcg/actu ation nasal spray,no n-aeroso l;Prescr yvonne Status: Prescrib ed on: 09/16/19 14 11:17AM; Disconti nued Status: Disconti nued on: 09/16/19 14 3:25PM;U ser: [email or web address] ;Est. Completi on: 03/14/20 14;Indic ation: Atopic Rhinitis - (08.4779 03);Phar Raquel fied: 09/16/19 14 11:17AM Not Available [...] Superfic ial Ocular Infectio n - (06.3798 );Prin hola: 07/10/19 10 Not Available Not [...] Disconti nued on: 04/18/20 08 11:05AM; User: james;Justina t. Completi on: 07/17/19 09;Indic ation: Symptoma tic Prostati c Hypertro phy - (6000 );Prin hola: 04/18/20 08 Not Available Not Available [...] er's instruct ions. Insulin dosing requires individu gilbert n. 04/22 completed Levemir 100 unit/mL subcutan [...] 13;Indic ation: Type 2 Diabetes Mellitus - ( 00);Prin hola: 06/04/20 12 Not Available Not [...] Not Available Not Available Easy Comfort Pen [place] 32 gauge x 5/32 USE DIRECTED DAILY [...] Not Available Vitals Date Recorded Body height Oxygen saturation Oxygen saturation in Arterial blood by Pulse oximetry Heart rate Body mass index (BMI) Body weight Body temperature Systolic And Diastolic Provider Name and Address Organization Details Last Updated DateTime 5 182.88 cm 98 % 98 % 75 /min 25.9 kg/m2 52185.5 4 g 98.4 [degF] 130/64 mm[Hg] Larry Li PA - [facility] 5 14:35:39 Social History Question Answer Notes LastModified by Organization Details LastModified Time Tobacco Smoking Status Former Smoker Paula Gee fatimah [place] - [facility] 04/08/2016 13:03:41 Able To Swim? [...] Or The Highest Degree You Have Received? [id number] Information not available 01/18/2021 Swimming/diving No Informati [...] 04/10/2016 What Is Your Current Pack Years? [email or web address] s Information not available 03/06/2022 Do You [...] anxious, or unable to sleep at night)? [id number] Information not available 01/18/2021 Do you have [...] Fasciitis N Hospital Admission Other Than N Lung Disease N Hypothyroidism N Defects or Inherited Disease N Developmental [...] colitis N Cerebrovascular Disease N Depression N Guillain-[place] N Sleep Apnea N Aneurysm N Bronchitis N Heart Disease N Suicidal Ideation N Pre-Eclampsia N Hypertension Y Osteoporosis N Immunizations Vaccine Type Date Status Note Provider Nam e and Address Organization Details Recorded Time COVID-19, mRNA, LNP-S, PF, 100 mcg/0.5mL dose or 50 mcg/0.25mL dose 03/02/202 1 completed Radha Whittaker null, [place] - [facility] 05/26/2024 10:16:32 COVID-19, mRNA, LNP-S, PF, 100 mcg/0.5mL dose or 50 mcg/0.25mL dose 1 completed Radha Whittaker null, [place] - [facility] 05/26/2024 10:16:32 Influenza, split virus, trivalent, PF 2 completed Radha Whittaker [place] [facility] 05/26/2024 10:16:32 Influenza, high-dose, quadrivalent, PF 0 completed Shahnaz Herman APRN [address], [place], [address], [place] [facility] 03/14/2020 16:08:39 Influenza, high-dose, quadrivalent, PF 1 completed Giovanni Glass MD [address], [place], [address], [place] [facility] 03/21/2021 14:31:50 influenza, unspecified formulation 0 completed Not Available [facility] 02/01/2023 11:37:23 influenza, unspecified formulation 1 completed Not Available [facility] 02/01/2023 11:37:23 influenza, unspecified formulation 2 completed Radha Whittaker null, [place] - [facility] 05/26/2024 10:16:32 influenza, unspecified formulation 3 completed Not Available [facility] 02/01/2023 11:37:23 influenza, unspecified formulation 4 completed Not Available [facility] 02/01/2023 11:37:23 influenza, unspecified formulation 5 completed Not Available [facility] 02/01/2023 11:37:23 influenza, unspecified formulation 8 completed Not Available [facility] 02/01/2023 11:37:23 influenza, unspecified formulation 9 completed Not Available [facility] 02/01/2023 11:37:23 Influenza, split virus, quadrivalent, preservative 7 completed Not Available [facility] 06/26/2019 03:54:42 COVID-19, mRNA, LNP-S, PF, 100 mcg/0.5mL dose or 50 mcg/0.25mL dose 2 completed Giovanni Glass MD [address], [place], [address], [place] [facility] 06/21/2021 11:12:07 Influenza, high-dose, quadrivalent, PF 2 completed Marcelina Longo APRN [address], [place], [address], [place] [facility] 03/06/2022 13:31:11 Influenza, high-dose, quadrivalent, PF 3 completed Paula sheridan, [place] - [facility] 03/13/2023 09:48:17 Influenza, split virus, quadrivalent, preservative 6 completed Not Available [facility] 02/01/2023 11:37:23 zoster live 9 completed Not Available [facility] 02/01/2023 11:37:23 Influenza, high-dose, trivalent, PF 4 completed Debra Barajas MD [address], [place], [address], [place] [facility] 03/09/2024 15:47:29 Tdap 4 completed Paula Gee fatimahIRONSIDE, [place] - [facility] 05/19/2024 16:57:05 Pneumococcal conjugate PCV20, polysaccharide [id number] conjugate, adjuvant, PF 4 completed Paula sheridan, [place] - [facility] 05/19/2024 16:57:56 Influenza, high-dose, trivalent, PF 8 completed Not Available [facility] 06/26/2019 03:55:10 SARS-COV-2 (COVID-19) vaccine, UNSPECIFIED 1 completed Radha sheridan, [place] - [facility] 05/26/2024 10:16:32 SARS-COV-2 (COVID-19) vaccine, UNSPECIFIED 1 completed Rdaha sheridan, [place] - [facility] 05/26/2024 10:16:32 Influenza, high-dose, trivalent, PF 9 completed Not Available [facility] 06/26/2019 03:56:04 Past Encounters Encounter ID Performer Location Encounter Start Date Encounter Closed Date Diagnosis/Indication Diagnosis SNOMED-CT Code Diagnosis ICD10 Code Diagnosis Note [id number] Kat Carnes APRN [address] [place] [address] 10/20/2024 15:02:41 10/20/2024 16:34:21 Pruritic dermatitis 3000852462 L30.8 [id number] Marcelina Longo APRN [address] [place] [address] 11/09/2024 14:16:39 11/09/2024 15:37:06 Hyperglycemia due to type 2 diabetes mellitus 8672519475 17507 E11.65 Benign ess ential hypertension 5055534 I10 Obesity 144144680 E66.9 Peripheral vascular disease 502646321 I73.9 Body mass index 25-29 - overweight 193792369 Z68.25 Peripheral neuropathy due to type 2 diabetes mellitus 9537352687 107 E11.42 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 6300143814 05 E11.22 Mixed hyperlipidemia 267 813823 E78.2 History of deep vein thrombosis 761099863 Z86.718 History of pulmonary embolus 251867616 Z86.711 Vitamin D deficiency 347 05437 E55.9 Iron defic iency anemia 21009530 D50.9 Prostate s pecific antigen above reference range 827381722 R97.20 Dizziness 651398236 R42 Health Concerns Section Related Observation LastModified by Organization Detai ls LastModified Time None Recorded Concern Status LastModified by Organization Details LastModified Time None Recorded Payers Encounter Date Sequence Insurance Name Policy Number Policy Mcintyre Covered Member ID Mcintyre Member ID Guarantor Name 11/09/2024 1 [employer] (MEDICARE REPLACEMENT/A DVANTAGE - PPO) Owen Salazar [id number] Owen Salazar Notes Date Note Type Note Provider Name and Address Organization Details Recorded Time 11/09/2024 text/html Saul presents f or dizziness [...] His PCP is Dr. Glass. He sees senior java j2ee developer, Dr. Moser, every 3 months. He refuses colonoscopy or cologuard. Last PSA from 12/22/2023 was elevated so I referred him to urology. Chronic issues reviewed and stable. Marcelina Longo, COMMISSARY STEWARD [address], [place], [address], [place] [facility] 11/09/2024 15:00:19
--- NOTE | 2024-12-22 12:00 | NM_ITS ---
APPROVED REPORT Exam: Nuclear Stress Test Indication: cp..soa..fatigue Patient Location: Outpatient Stress Tech: Amina Allen [place] Tech:Claudine MarieWENDI RT(R)(N) Ht: 6 ft 0 in Wt: 185 lbs HR: 66 bpm BP: 184/70 mmHg BSA: 2.06 m2 TID: 1.02 History: cp..soa..fatigue Procedure: Patient received 0.4 mg of intravenous Lexiscan, resting heart rate 66 bpm, resting blood pressure 184/70 mmHg, with Lexiscan maximum heart rate achieved was 93 bpm which is 85 % of the maximum predicted heart rate and blood pressure was 181/78 mmHg. With Lexiscan, patient denied any complaint of chest pain. Cardiac Stress and Resting SPECT Images: Cardiac Stress and Resting SPECT images were obtained using technetium 99m Myoview 32.5 mCi stress and 10.41 mCi at rest. Resting and stress imaging in supine and prone positions demonstrate no evidence of fixed or reversible perfusion defects. Gated imaging demonstrates normal global and regional LV systolic function. LVEF is calculated at 55%. Conclusion: No evidence of fixed or reversible perfusion defects. Gated imaging demonstrates normal global and regional LV systolic function. LVEF is calculated at 55%. Electronically signed by : Genie Tian MD 12/23/2024 23:11:14
[2024-12-22] MEDS: SODIUM CHLORIDE 0.9% 10ML SYR (RAD ONLY) 10 ML IV ×2 (13:13)
[2024-12-22] MEDS: ISOTOPE MYOVIEW (PER STUDY) 1 DOSE IV (13:13)
--- NOTE | 2024-12-22 14:30 | CA_ITS ---
APPROVED REPORT EXAM: Comprehensive 2D, Doppler, and color-flow Echocardiogram Bacteriologist Medical: Helen Vaca, RCS, RVS Ht: 6 ft 0 in Wt: 189lbs BSA: 2.08 BP: 138/96 mmHg Rhythm: Irregular Indications: CP, Dyspnea, Abn EKG 2D Dimensions LVDd 4.59 cm LVEF (Visual) 58.10 % LVDs 3.19 cm LA Volume 68.00 mL Left Atrium 4.52 cm LA Volume Index 31.90 mL/m2 (M/F) 16-34 EF AP4 63.40 % GL Strain -15.5 % M-Mode Dimensions RVDd 1.69 cm (0.9-2.6) LA Diam 4.48 cm (1.9-4.0) LVDd 6.24 cm (3.5-5.7) LVDs 3.58 cm (3.5-5.7) IVSd 1.25 cm (0.6-1.1) PWd 1.17 cm (0.6-1.1) EF (Teich) 72.70% EPSs 0.61 cm FS 42.60% EDV (Teich) 196.90 mL TAPSE 1.96 (<1.7) ESV (Teich) 53.70 mL LV Diastology E Decel Time 273 (160-240 msec) E/A Ratio 0.79 MED A' 9.70 cm/s LAT A' 9.70 cm/s Aortic Valve ADAIR Index 1.12 cm2/m2 AoV Peak Fernando. 123.0 (50-130 cm/s) AO Peak GR. 6.10 mmHg AO Mean GR. 3.10 (<5 mmHg) AO VTI 27.4 (18-25 cm) ADAIR (VTI) 2.39 (2.5-4.5 cm2) Mitral Valve MV A Velocity 88.0 (40-130 cm/s) E/A Ratio 0.79 Tricuspid Valve TR P. Velocity 217.00 cm/s RAP Estimate 10.00 mmHg RVSP 28.80 mmHg Left Ventricle The left ventricle is normal size. The left ventricular systolic function is normal. The left ventricular ejection fraction is within the normal range. There is increased LV wall thickness. There is normal LV segmental wall motion. The left ventricular diastolic function is normal. LVEF is 55%. Right Ventricle The right ventricle is normal size. The right ventricular systolic function is normal. Atria Left atrium is mildly dilated. The right atrium size is normal. There is no Doppler evidence of interatrial shunt. Aortic Valve Aortic valve is mildly thickened. There is no aortic valvular stenosis. Trace aortic regurgitation. Mitral Valve The mitral valve is normal in structure. No evidence of mitral valve stenosis. Mild mitral regurgitation. Tricuspid Valve Tricuspid valve is grossly normal in structure and function. Mild tricuspid regurgitation. RVSP is 20-25 mmHg. Pulmonic Valve The pulmonary valve is normal in structure. Trace pulmonic regurgitation. Great Vessels The aortic root is normal in size. IVC is normal in size and collapses >50% with inspiration. Pericardium There is no pericardial effusion. Other Information Study Quality: Fair Conclusion Normal biventricular systolic function. Mild LA dilation. Mild MR, mild TR. Electronically signed by : Genie Tian MD 12/28/2024 10:24:32
== END 2024-12-22 23:59 | disposition home or self-care (01) ==
LOC: RAD 11:30
PROVIDERS: PCP Family Medicine; Visit Provider Internal Medicine
DX: I08.1 Rheumatic disorders of both mitral and tricuspid valves (principal); I49.3 Ventricular premature depolarization; I49.1 Atrial premature depolarization; I10 Essential (primary) hypertension; R94.31 Abnormal electrocardiogram [ECG] [EKG]; Z86.718 Personal history of other venous thrombosis and embolism; Z86.711 Personal history of pulmonary embolism
CPT/HCPCS: 78452; 93016; 93017; 93018; 93306; A9502; J2785

== ENCOUNTER 2025-01-13 14:46 | Outpatient (CLI) | payer MEDICARE, SELFPAY ==
[2025-01-13 17:23] LABS: Anion Gap 13.8 mEq/L (5-15); Blood Urea Nitrogen 41 mg/dl (9-20); Calcium 9.1 mg/dl (8.4-10.2); Carbon Dioxide 16 mmol/L (22.0-30.0); Chloride 111 mmol/L (98-107); Creatinine,Serum 3.10 mg/dl (0.66-1.25); Estimated Glomerular Filt Rate 19 ml/min (>60); GFR (African American) 23 ML/MIN (>60); Glucose 81 mg/dl (74-100); Potassium 3.8 mmoL/L (3.5-5.1); Sodium 137 mmol/L (136-145)
== END 2025-01-13 23:59 | disposition home or self-care (01) ==
LOC: LAB 14:47
PROVIDERS: PCP Family Medicine; Visit Provider Nurse Practitioner Family
DX: I10 Essential (primary) hypertension (principal)
CPT/HCPCS: 36415; 80048

== ENCOUNTER 2025-02-10 13:26 | Outpatient (CLI) | payer MEDICARE, SELFPAY ==
[2025-02-10 13:54] LABS: Hematocrit 38.1 % (42.0-52.0); Hemoglobin 11.9 g/dL (14.1-18.0); Immature Granulocytes % 0.8 %; Mean Corpuscular HGB Conc 31.2 g/dL (31.8-35.4); Mean Corpuscular Hemoglobin 29.4 pg (27.0-31.2); Mean Corpuscular Volume 94.1 fl (80-94); Nucleated Red Blood Cells % 0 %; Platelet Count 239 K/mm3 (142-424); Red Blood Count 4.05 M/mm3 (4.60-6.20); Red Cell Distribution Width-SD 44.3 fL; White Blood Count 15.8 K/mm3 (4.8-10.8)
[2025-02-10 14:11] LABS: Albumin Level 3.0 g/dl (3.5-5.0); Chloride 112 mmol/L (98-107)
[2025-02-10 14:12] LABS: Potassium 5.1 mmoL/L (3.5-5.1); Sodium 135 mmol/L (136-145)
[2025-02-10 14:14] LABS: Alanine Aminotransferase 18 U/L (12-78); Alkaline Phosphatase 80 U/L (38-126); Aspartate Amino Transferase 31 U/L (17-59); Bilirubin,Direct 0.0 mg/dl (0.0-0.4); Bilirubin,Indirect 0.4 mg/dL (0.0-0.9); Bilirubin,Total 0.4 mg/dl (0.2-1.3); Bilirubin,Unconjugated 0.3 mg/dL (0.0-1.1); Carbon Dioxide 19 mmol/L (22.0-30.0); Cholesterol 195 mg/dl (140-200); Creatinine,Serum 3.70 mg/dl (0.66-1.25); Estimated Glomerular Filt Rate 16 ml/min (>60); GFR (African American) 19 ML/MIN (>60); Total Protein,Serum 5.2 g/dl (6.3-8.2); Triglycerides 161 mg/dl (30-150)
[2025-02-10 14:15] LABS: Calcium 8.7 mg/dl (8.4-10.2); Glucose 86 mg/dl (74-100); HDL Cholesterol 91 mg/dl (40-60); Magnesium 2.0 mg/dl (1.6-2.3)
[2025-02-10 14:17] LABS: Anion Gap 9.1 mEq/L (5-15)
[2025-02-10 14:20] LABS: Blood Urea Nitrogen 94 mg/dl (9-20)
[2025-02-10 14:29] LABS: Free T4 (Free Thyroxine) 1.16 ng/dl (0.78-2.19)
[2025-02-10 14:44] LABS: Thyroid Stimulating Hormone 0.03 uIU/mL (0.465-4.68)
[2025-02-10 15:03] LABS: RBC Morphology Normal; Total Cells Counted 100
== END 2025-02-10 23:59 | disposition home or self-care (01) ==
LOC: LAB 13:27
PROVIDERS: PCP Family Medicine; Visit Provider Internal Medicine
DX: E78.5 Hyperlipidemia, unspecified (principal); I10 Essential (primary) hypertension
CPT/HCPCS: 36415; 80048; 80061; 80076; 83735; 84439; 84443; 85007; 85025

== ENCOUNTER 2025-02-17 13:45 | Outpatient (CLI) | payer MEDICARE, SELFPAY ==
[2025-02-17 14:11] LABS: Anion Gap 13.1 mEq/L (5-15); Blood Urea Nitrogen 64 mg/dl (9-20); Calcium 8.5 mg/dl (8.4-10.2); Carbon Dioxide 18 mmol/L (22.0-30.0); Chloride 111 mmol/L (98-107); Creatinine,Serum 3.50 mg/dl (0.66-1.25); Estimated Glomerular Filt Rate 17 ml/min (>60); GFR (African American) 20 ML/MIN (>60); Glucose 85 mg/dl (74-100); Potassium 5.1 mmoL/L (3.5-5.1); Sodium 137 mmol/L (136-145)
== END 2025-02-17 23:59 | disposition home or self-care (01) ==
LOC: LAB 13:46
PROVIDERS: PCP Family Medicine; Visit Provider Internal Medicine
DX: I10 Essential (primary) hypertension (principal)
CPT/HCPCS: 36415; 80048

== ENCOUNTER 2025-03-02 13:52 | Outpatient (CLI) | payer MEDICARE, SELFPAY | END 2025-03-02 23:59 | disposition home or self-care (01) | LOC: LAB 13:53 | PROVIDERS: PCP Family Medicine; Visit Provider Internal Medicine | DX: I10 Essential (primary) hypertension (principal) ==

== ENCOUNTER 2025-04-21 09:49 | Day surgery (SDC) | payer MEDICARE, SELFPAY ==
[2025-04-21] VITALS (10 sets, daily range): BP systolic 171–198; BP diastolic 74–125; PULSE 62–75; RESP 18–20; O2SAT 94–99; BMI 25.9
--- NOTE | 2025-04-21 07:13 | IR_ITS ---
APPROVED REPORT Patient Location: Outpatient [facility] Counter Clerk: WENDI Mendosa RT (R) PROCEDURES Pulmonary Angiogram Cordella device placement Right heart cath INDICATION [place] [facility] class III heart failure Informed consent was obtained prior to the procedure. COMPLICATIONS NONE Estimated Blood Loss: LESS THAN 10 ML TECHNIQUE One percent lidocaine was used to anesthetize the right groin. The right femoral vein was accessed via the Seldinger technique. A 7-Serbian sheath was placed in the right femoral vein. Vein dilated and upsized to 14 fr sheath. [place] catheter inserted into femoral vein and tracked up to the right pulmonary artery. Right heart pressures obtained and continuously monitored. Angiogram taken to find target area for device. Distal pulmonary artery wired, swan catheter removed. Cordella device catheter inserted over the wire and guided to target placement. Placement confirmed under fluoro in two positions, device deployed. Catheter removed. Sheath removed, hemostasis achieved with Z-stitch and manual pressure, sterile dressing. Patient transferred to outpatient holding. PA pressure: 34/20/25 [employer], Cordella Sensor Delivery Kit Serial number: [id number] IMPRESSION Successful Pulmonary Angiogram Successful Cordella device placement Successful right heart cath PLAN 1. Postop wound care. 2. Vascular ultrasound needed for right femoral, iliac vein Electronically signed by : Al Juárez MD 04/21/2025 14:59:29
[2025-04-21 10:15] LABS: Hematocrit 32.2 % (42.0-52.0); Hemoglobin 10.4 g/dL (14.1-18.0); Immature Granulocytes % 0.3 %; Mean Corpuscular HGB Conc 32.3 g/dL (31.8-35.4); Mean Corpuscular Hemoglobin 29.7 pg (27.0-31.2); Mean Corpuscular Volume 92.0 fl (80-94); Nucleated Red Blood Cells % 0 %; Platelet Count 245 K/mm3 (142-424); Red Blood Count 3.50 M/mm3 (4.60-6.20); Red Cell Distribution Width-SD 48.0 fL; White Blood Count 7.7 K/mm3 (4.8-10.8)
[2025-04-21 10:22] LABS: Anion Gap 5.8 mEq/L (5-15); Blood Urea Nitrogen 33 mg/dl (9-20); Calcium 8.4 mg/dl (8.4-10.2); Carbon Dioxide 23 mmol/L (22.0-30.0); Chloride 108 mmol/L (98-107); Creatinine Clearance Estimated 22 mL/min (50-200); Creatinine,Serum 3.10 mg/dl (0.66-1.25); Estimated Glomerular Filt Rate 19 ml/min (>60); GFR (African American) 23 ML/MIN (>60); Glucose 190 mg/dl (74-100); Potassium 3.8 mmoL/L (3.5-5.1); Sodium 133 mmol/L (136-145)
[2025-04-21] MEDS: HEPARIN 1,000 UNITS/500ML NS (CATH LAB) 3000 UNIT IV (12:47)
[2025-04-21] MEDS: LIDOCAINE 1% 10ML MDV 10 ML IJ (12:48)
[2025-04-21] MEDS: 0.9 % SODIUM CHLORIDE 500 ML 25 ML IV (12:48)
[2025-04-21] MEDS: MIDAZOLAM HCL 1MG/ML 5ML VIAL 1 MG IV (12:49)
[2025-04-21] MEDS: FENTANYL 100MCG/2ML VIAL 50 MCG IV (13:34)
--- NOTE | 2025-04-21 15:53 | SUR.PHASEII ---
Z STITCH REMOVED, NO BLEEDING NOTED
== END 2025-04-21 16:15 | disposition home or self-care (01) ==
PROVIDERS: PCP Family Medicine; Visit Provider Internal Medicine
DX: I50.32 Chronic diastolic (congestive) heart failure (principal); Z00.6 Encounter for examination for normal comparison and control in clinical research program; E11.22 Type 2 diabetes mellitus with diabetic chronic kidney disease; I13.0 Hypertensive heart and chronic kidney disease with heart failure and stage 1 through stage 4 chronic kidney disease, or unspecified chronic kidney disease; N18.4 Chronic kidney disease, stage 4 (severe); R94.31 Abnormal electrocardiogram [ECG] [EKG]; E11.51 Type 2 diabetes mellitus with diabetic peripheral angiopathy without gangrene; E78.49 Other hyperlipidemia; Z86.718 Personal history of other venous thrombosis and embolism; Z86.711 Personal history of pulmonary embolism; Z79.01 Long term (current) use of anticoagulants; Z79.85 Long-term (current) use of injectable non-insulin antidiabetic drugs; Z79.4 Long term (current) use of insulin; Z79.899 Other long term (current) drug therapy; Z88.8 Allergy status to other drugs, medicaments and biological substances; Z82.49 Family history of ischemic heart disease and other diseases of the circulatory system
CPT/HCPCS: 33289; 36415; 80048; 85025; 99152; 99153; C1769; C1894; C2624; J1644; J2003; J3010; J7040

== ENCOUNTER 2025-04-28 11:16 | Outpatient (CLI) | payer MEDICARE, SELFPAY ==
--- OUTSIDE RECORDS SUMMARY | 2025-03-06 18:34 | XMS_ITS | Encounter Summary ---
Author Organization Healthcare Address [address] [place] [address] Care Team Providers Care Big 6 Dealer Name Role Phone Pcp, No Primary Care Provider Unavailabl e Reason for Referral * Consultation (Routine) - Authorized Specialty Diagnoses / Procedures Referred By Contac t Referred To Contact Cardiology Diagnoses SVT (supraventricular tachycardia) ([facility]/HCC) Harish Baer MD [address] [place] [phone] Phone: tel: fax: Referral ID Status Reason Start Date Expiration Date Visits Requested Visits Authorized [id number] Authorized Specialty Services Required 03/10/2025 09/09/2026 1 1 * Consultation (Routine) - Authorized Specialty Diagnoses / Procedures Referred By Contac t Referred To Contact Nephrology Diagnoses ROSA (acute kidney injury) Harish Baer MD [address] [place] [address] Phone: tel: fax: Referral ID Status Reason Start Date Expiration Date Visits Requested Visits Authorized [id number] Authorized Specialty Services Required 03/10/2025 09/09/2026 [address] Garry Moser MD [email or web address] 09/11 (6 Webmd reviews) Bookstore Manager in [place], [place] [address] [place], [place] [phone] mi * Consultation (Routine) - Authorized Specialty Diagnoses / Procedures Referred By Contac t Referred To Contact Diagnoses ROSA (acute kidney injury) Harish Baer MD [address] [place] [address] Phone: tel: fax: Referral ID Status Reason Start Date Expiration Date V isits Requested Visits Authorized [id number] Authorized 03/10/2025 09/09/2026 1 1 Reason for Visit * Reason Comments Shortness of Breath * Auth/Cert (Routine) Specialty Diagnoses / Procedures Referred By Damion pisano Referred To Contact Diagnoses Acute kidney injury superimposed on CKD Elgin Key MD [address] [place] [address] Phone: tel: fax: [facility] Emergency Department [address] [place] [phone] Phone: tel: Referral ID Status Reason Start Date Expiration Date Visits Re quested Visits Authorized [id number] 1 1 Encounter Details Date Type Department Care Team (Latest Contact Info) Description 03/06/2025 7:34 PM EDT - 03/10/2025 5:07 PM EDT Hospital Encounter [facility] [address] [place] [phone] Nabor Tam MD [address] [place] [phone] Ariella Chapman MD [address] [place] [phone] Elgin Key MD [address] [place] [address] Harish Baer MD [address] [place] [address] ROSA (acute kidney injury) (CMS/HCC) (Primary Dx); SVT (supraventricular tachycardia) (CMS/[facility]) Discharge Disposition: Home or Self Care Social History Tobacco Use Types Packs/Day Years Used Date Smoking Tobacco: Former Cigarettes 1 50 1 957 - 2007 Passive Smoke Exposure: Past Smokeless Tobacco: Never Tobacco Cessation:Counseling Given: No Alcohol Use Standard Drinks/Week Comments Never 0 (1 standard drink = 0.6 oz pur e alcohol) Humiliation, Afraid, Rape, and Kick questionnair e Answer Date Recorded Within the last year, have y ou been afraid of your partner or ex-partner? No 03/07/2025 Within the last year, have y ou been humiliated or emotionally abused in other ways by your partner or ex-partner? No Within the last year, have y ou been kicked, hit, slapped, or otherwise physically hurt by your partner or ex-partner? No 03/07/2025 Within the last year, have y ou been raped or forced to have any kind of sexual activity by your partner or ex-partner? No 03/07/2025 Hunger Vital Sign Answer Date Recorded Within the past 12 months, y ou worried that your food would run out before you got the money to buy more. Never true 03/07/20 25 Within the past 12 months, t he food you bought just didn't last and you didn't have money to get more. Never true 03/07/2025 PRAPARE - Transportation Answer Date Re corded In the past 12 months, has l ack of transportation kept you from medical appointments or from getting medications? No 02/08 In the past 12 months, has l ack of transportation kept you from meetings, work, or from getting things needed for daily living? No 03/07/2025 Housing Stability Vital Sign Answer Joe e Recorded In the last 12 months, was t here a time when you were not able to pay the mortgage or rent on time? No 03/07/2025 Number of Times Moved in the Last Year Not on fi le 03/07/2025 At any time in the past 12 m [facility], were you homeless or living in a custodial (including now)? No 03/07/2025 [facility] Utilities Answer Date Recorded In the past 12 months has th e Press[employer], gas, oil, or water company threatened to shut off services in your home? No 03/07/2025 Sex and Gender Information Value Date Recorded Sex Assigned at Not on file Legal Sex Male 8:26 PM EDT Gender Identity Not on file Sexual Orientation Not on file documented as of this encounter Last Filed Vital Signs Vital Sign Reading Time Taken Comments Blood Pressure 123/66 03/10/2025 11:33 AM EDT Pulse 78 03/10/2025 4:15 AM EDT Temperature 36.8 C (98.3 F) 03/10/2025 11:33 AM EDT Respiratory Rate 20 03/09/2025 3:40 AM EDT Oxygen Saturation 91% 03/10/2025 4:15 AM EDT Inhaled Oxygen Concentration - - Weight 82.6 kg (182 lb 1.6 oz) 03/10/2025 5:00 A M EDT Height 182 cm (5' 11.65 ) 03/07/2025 9:22 PM EDT Body Mass Index 24.94 03/07/2025 9:22 PM EDT documented in this encounter Functional Status * Calculated C-SSRS Risk Score (Lifetime/Recent) Answer Date of Assessment Author No Risk Indicated 03/10/2025 8:00 AM EDT Angie Multani RN * Question Answer Date of Assessment Author 1. Wish to be (Past 1 Month) No 025 8:00 AM EDT Angie Knight RN 2. Non-Specific Active Suici levi Thoughts (Past 1 Month) No 03/10/2025 8:00 AM EDT Irvin Knight RN 6. Suicidal Behavior (Lifetime) No 8:00 AM EDT Angie Knight RN documented as of this encounter Discharge Instructions * Discharge Instructions* Harish Baer MD - 03/10/2025 3:09 PM EDT Resume all of your home medications with the following exceptions: START THESE NEW MEDICATIONS: - Apixaban 5mg twice daily - Atorvastatin 10mg daily - Sodium Bicarbonate 650mg three times daily - Carvedilol 25mg twice daily - Tiotropium-Olodaterol STOP THESE MEDICATIONS: - Dapagliflozin (Farxiga) - Lovastatin - Rivaroxaban (Xarelto) - Glipizide Make sure to go to all follow-up appointments. Your hospital plan of care includes these followup clinic appointments - they are necessary to ensure you continue to recover. In particular, your appointments include - Primary Care - Nephrology Dr. Garry Moser MD [facility], [place] [address] [place] - Cardiology There may be other appointments, and you should go to any previously scheduled appointments as well. There are several labs that have not completed at the time of discharge. - PLA2R antibody (70% sensitive in Ideopathic Membranous GN but may also present in secondary) - LC - anti-GBM antibody Please make sure to discuss these results when they are available with your physicians. Follow a low fat and low salt diet Go to the nearest ER immediately if you have any of the following: New chest pain or shortness of breath Bleeding or severe bruising Confusion Increased or severe pain Blue lips or fingernails Go to your primary doctor if you have any of the following: Fever of 101 degrees or more Nausea or vomiting Constipation or diarrhea major weight loss or gain (more than 5 lbs in 1 week or more than 10 lbs in 1 month) More than normal mucous production, or yellow, green or smelly sputum documented in this encounter Medications at Time of Discharge Alcohol Sheets (Alcoh-Wipe) sheet Use as directed. 100 each 11 03/10/2025 amLODIPine (Norvasc) 2.5 MG tablet Take 1 tablet by mouth every morning. 30 tablet 1 03/10/2025 5 apixaban (Eliquis) 5 MG tablet Take 1 tablet by mouth 2 times a day. 60 tablet 2 03/10/2025 atorvastatin (Lipitor) 10 MG tablet Take 1 tablet by mouth nightly. 30 tablet 1 03/10/2025 5 Blood Glucose Monitoring Suppl device Test two times daily 1 each 03/10/2025 carvedilol (Coreg) 25 MG tablet Take 1 tablet by mouth 2 times a day. 60 tablet 5 03/10/2025 6 diphenhydrAMINE-a cetaminophen (Tylenol PM) 25-500 MG per tablet Take 1 tablet by mouth at night as needed for sleep. 14 tablet 03/10/2025 5 furosemide (Lasix) 20 MG tablet Take 1 tablet by mouth every morning. 30 tablet 5 03/10/2025 6 glucose blood test strip Test two times daily 100 strip 11 03/10/2025 insulin glargine (Lantus SoloStar) 100 UNIT/ML injection pen Inject 5 Units under the skin every morning. 15 mL 2 03/10/2025 Lancets misc Test two times daily 100 each 11 03/10/2025 nitroglycerin (Nitrostat) 0.[address] 1 tablet under the tongue every 5 minutes as needed for chest pain. 25 tablet 2 03/10/2025 Ozempic, 1 MG/DOSE, 4 MG/3ML solution pen-injector Inject 1 mg under the skin 1 time per week. Sundays 3 mL 2 03/10/2025 pantoprazole (Protonix) 40 MG EC tablet Take 1 tablet by mouth daily. 30 tablet 1 03/10/2025 5 pen needle, diabetic 31G X 5 MM misc Use as directed with insulin pen. 100 each 11 03/10/2025 sodium bicarbonate 650 MG tablet Take 1 tablet by mouth 3 times a day. 90 tablet 1 03/10/2025 5 tiotropium-olodat derrick (Stiolto Respimat) 2.5-2.5 MCG/ACT aerosol solution inhaler Inhale 2 Inhalations daily. 4 g 1 03/10/2025 documented as of this encounter Miscellaneous Notes * Nursing Note - Angie Knight - 03/10/2025 4:37 PM EDT Meds to beds delivered to patient. Transport being requested. Family bedside. * Discharge Summary - Harish Baer MD - 03/10/2025 3:16 PM EDT Hospitalization Admit Date/Time: 03/06/2025 7:34 PM Admitting Attending: Elgin Key Discharge Date: 03/10/2025 Discharge Attending Physician: Harish Baer MD PCP name and Address: Pcp, No [address] [facility] / [place] [phone] Referring provider name and address: No referring provider defined for this encounter. Chief Concern, Brief History of Present Illness, and Hospital Course Owen Salazar: 84yo male PMHx HFpEF, DVT/PE on xarelto, HTN, T2DM, and CKD [facility] worsening [place] x 2 months #) Chronic Kidney Disease Stage 4 #) Polycystic Kidney Disease Recent Creatinine trend: 3.63->3.38->(IVF)->3.18->3.32->3.78 Recent Cystatin C trend: 2.96->(IVF)->3.14->3.11->3.22 Baseline Creatinine is Unknown but he says his outpatient eGFR was around 16 He does not want dialysis, and follows with Dr. Garry Moser MD Urinalysis is not consistent with infection Renal Ultrasound (03/08/25) showed: Increased parenchymal echogenicity suggesting medical renal disease. No hydronephrosis. Multiple bilateral renal cysts may suggest polycystic kidney disease. 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 Serum Albumin is 1.9 The differential includes: Diabetes (most likely), and less likely Malignancy- related Membranous, or others. He did have recurrent PE and a serum Albumin of 2.0, so this could be Nephrotic syndrome. SPEP is negative for monoclonal spike, Hepatitis B and C are both negative, HIV is negative, C3 andC4 are normal. RF is negative /Plan: - Check for causes: LC, anti-GBM antibody, PLA2R antibody (70% sensitive in Ideopathic Membranous GN but may also present in secondary) #) Sinus Tachycardia EKG shows sinus with PVC's and he says he has palpitations with exertion. No overt signs of HF, no wheezes on exam. This may be arrhythmia rather than a volume issue. He will discharge on Carvedilol 25mg PO BID #) Chronic Heart Failure, Preserved Ejection Fraction /Plan: - Angiotensin Blockade Hold RALPH/ARB due to advanced CKD - Beta Blockade Carvedilol 25mg PO BID - SGLT2 Inhibitor No SGLT2 because patient has PKD and also eGFR below 30 - Primo Blockade Hold mineralocorticoid receptor antagonist due to advanced CKD - Diuresis Hold diuretics while hypovolemic #) Metabolic Acidosis The serum Bicarbonate is 16 The anion gap is 13 The serum pH on an ABG is 7.39 This is a primary acidosis, since compensation will only partially restore the pH to 7.35-7.45 Serum lactate is normal, PaCO2 is normal Urine Anion Gap (Na + K - Cl) is 36, (52 + 30 - 46) The urine anion gap is positive, which suggests either reduced renal acid clearance from CKD or else a renal tubular acidosis He received IV D5W with 150mEq/L Bicarb at 125 mL/hr for 2 days. 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 Will hold off on binder due to normal serum Phos #) Anemia suspect of chronic disease -iron studies, ferritin, Vitamin B12, folate #) Diabetes, Uncontrolled A1c=9.3 He will resume his home insulin on discharge. Will d/c his SGLT2 because of PKD and low eGFR #) HLD: continue statin and fenofibrate #) GERD: continue PPI #) Debility: cane/walker at baseline; fall precautions #) Hypomagnesemia - Monitor and replace Surgeries and Procedures Procedures performed in this encounter Procedures Critical Care Medication List .. Alcoh-Wipe sheet Use as directed. amLODIPine 2.5 MG tablet Commonly known as: Norvasc Take 1 tablet by mouth every morning. apixaban 5 MG tablet Commonly known as: Eliquis Take 1 tablet by mouth 2 times a day. atorvastatin 10 MG tablet Commonly known as: Lipitor Take 1 tablet by mouth nightly. Blood Glucose Monitoring Suppl device Test two times daily carvedilol 25 MG tablet Commonly known as: Coreg Take 1 tablet by mouth 2 times a day. diphenhydrAMINE-acetaminophen 25-500 MG per tablet Commonly known as: Tylenol PM Take 1 tablet by mouth at night as needed for sleep. furosemide 20 MG tablet Commonly known as: Lasix Take 1 tablet by mouth every morning. glucose blood test strip Test two times daily Lancets misc Test two times daily Lantus SoloStar 100 UNIT/ML injection pen Generic drug: insulin glargine Inject 5 Units under the skin every morning. nitroglycerin 0.4 MG SL tablet Commonly known as: Nitrostat Place 1 tablet under the tongue every 5 minutes as needed for chest pain. Ozempic (1 MG/DOSE) 4 MG/3ML solution pen-injector Generic drug: Semaglutide (1 MG/DOSE) Inject 1 mg under the skin 1 time per week. Sundays pantoprazole 40 MG EC tablet Commonly known as: Protonix Take 1 tablet by mouth daily. pen needle, diabetic 31G X 5 MM misc Use as directed with insulin pen. sodium bicarbonate 650 MG tablet Take 1 tablet by mouth 3 times a day. Stiolto Respimat 2.5-2.5 MCG/ACT aerosol solution inhaler Generic drug: tiotropium-olodaterol Inhale 2 Inhalations daily. Where to Get Your Medications These medications were sent to [facility] - [place], [place] - [address] [facility] [id number] Alcoh-Wipe sheet amLODIPine 2.5 MG tablet apixaban 5 MG tablet atorvastatin 10 MG tablet Blood Glucose Monitoring Suppl device carvedilol 25 MG tablet diphenhydrAMINE-acetaminophen 25-500 MG per tablet furosemide 20 MG tablet glucose blood test strip Lancets misc Lantus SoloStar 100 UNIT/ML injection pen nitroglycerin 0.4 MG SL tablet Ozempic (1 MG/DOSE) 4 MG/3ML solution pen-injector pantoprazole 40 MG EC tablet pen needle, diabetic 31G X 5 MM misc sodium bicarbonate 650 MG tablet Stiolto Respimat 2.5-2.5 MCG/ACT aerosol solution inhaler Discharge Diagnosis Medical Problems Active and Resolved Hospital Problems Hospital * (Principal) ROSA (acute kidney injury) CHF (congestive heart failure) Debility Metabolic acidosis Former cigarette smoker Overview Signed 03/07/2025 1:27 AM by Jason Quezada APRN 50 pack yr smoker, quit in 2006 Hx pulmonary embolism Mixed hyperlipidemia Primary hypertension 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 Overview Addendum 03/07/2025 2:05 AM by Jason Quezada APRN -recurrent RLE DVT x 3 attributed to extended travel -OSH D-dimer normal PLAN -continue Xarelto Normocytic anemia Hypomagnesemia Post Discharge Instructions Resume all of your home medications with the following exceptions: START THESE NEW MEDICATIONS: - Apixaban 5mg twice daily - Atorvastatin 10mg daily - Sodium Bicarbonate 650mg three times daily - Carvedilol 25mg twice daily - Tiotropium-Olodaterol STOP THESE MEDICATIONS: - Dapagliflozin (Farxiga) - Lovastatin - Rivaroxaban (Xarelto) - Glipizide Make sure to go to all follow-up appointments. Your hospital plan of care includes these followup clinic appointments - they are necessary to ensure you continue to recover. In particular, your appointments include - Primary Care - Nephrology Dr. Garry Moser MD [address] [place] [address] [place] - Cardiology There may be other appointments, and you should go to any previously scheduled appointments as well. There are several labs that have not completed at the time of discharge. - PLA2R antibody (70% sensitive in Ideopathic Membranous GN but may also present in secondary) - LC - anti-GBM antibody Please make sure to discuss these results when they are available with your physicians. Follow a low fat and low salt diet Go to the nearest ER immediately if you have any of the following: New chest pain or shortness of breath Bleeding or severe bruising Confusion Increased or severe pain Blue lips or fingernails Go to your primary doctor if you have any of the following: Fever of 101 degrees or more Nausea or vomiting Constipation or diarrhea major weight loss or gain (more than 5 lbs in 1 week or more than 10 lbs in 1 month) More than normal mucous production, or yellow, green or smelly sputum Outpatient Follow-Up No future appointments. Test Results Pending At Discharge Pending Labs Order Current Status Antinuclear Antibody (LC) with HEp-2 Substrate, IgG by IFA In process Glomerular Basement Membrane Antibody, IgG In process Hopkins Lambda Quant Free Light Chains w/Ratio In process Hopkins Lambda Quant Free Light Chains w/Ratio In process Primary Membranous Nephropathy Diagnostic Crane, S (SO) In process Pertinent Physical Exam At Time of Discharge Physical Exam General: AOx3, no acute distress, well-nourished Cardiovascular: regular s1/s2, no murmurs, no JVD, no lower extremity edema Pulmonary: clear, no crackles, no wheezes, non-labored Abdom: normal bowel sounds, soft, non-tender, non-distended Muskuloskeletal: full RoM in BUE, full RoM in Knees, full RoM in Hips Dermatologic: no rashes, no lesions, no ulcers Discharge Disposition/Condition Disposition: Home Condition: Stable (s/sx potential problems absent or manageable) I spent >30 minutes of patient care and instruction time in preparation for this discharge. * Consults - Salena Terrell - 03/10/2025 11:50 AM EDTAssociated Order(s): IP CONSULT TO DIABETIC EDUCATION Adult Diabetes Education Team Note Owen Salazar 84 y.o. male CSN: [id number] This is a 84 y.o. male patient was admitted to [facility] with the diagnosis of ROSA. DM education consultfor automatic A1c>9% Labs: A1C 9.3 03/06/25 FSBG-PRN FSBG FSBG Other FSBG-AC FSBG-HS FSBG-3a POCBG Ranges: 130-285 Current Diabetes Regimen: glargine 5u hs; lispro 1:50>150 tid prn ac bg or >250 hs and 3a prn Do you wear Diabetes ID? No Glucagon in the home? No Home Monitoring Of Diabetes Home Medications for Diabetes: farxiga 10mg daily, glipizide 10mg bid; lantus 5u hs; ozempic once weekly Any barriers/issues getting DM/RX Supplies? No Education Diabetic Education Performed with patient and family daughter in law- Donna, son- [place]. Pt with h/o t2dm. Medication Education instructions given: The use of insulin Injection sites and rotation Importance of taking basal insulin Pt endorses rotation of injection sites around abdomen Instructed on DM medications recommendations at discharge per primary team: glargine 5u hs; ozempiconce weekly. Pt to stop glipizide and farxiga. Donna reports helps pt with medications and reminders Diabetic Monitoring Education instructions given: Test Times Target Goals Action to take for results outside the target goals Hyperglycemia causes, signs, symptoms and treatment Hypoglycemia Management instructions given: Symptoms, causes, and treatment Pt reports lows are rare Pt endorses tx with chocolate bars, discussed optimal tx options Nutrition instructions given: Appropriate meal schedule Meal, snack, and drink ideas Pt reports heaviest meal is supper. Donna endorses pt eats all day. Pt reports snacks on tomatoes and cottage cheese, drinks water or diet drinks Sick Day Management instructions given: Importance of always taking basal insulin Complications and Hygiene instructions given: A1C ADA standards of care recommends less stringent goals for A1c: Older adults with diabetes and intermediate or complex health are clinically heterogeneous with variable life expectancy. Selection of glycemic goals should be individualized and should prioritize avoidance of hypoglycemia, with less stringent goals (such as A1C <8.0% [<64 mmol/mol] and/or TIR 70-180 mg/dL [3.9-10.0 mmol] of ?50% and time below range <70 mg/dL [3.9 mmol/L] of <1%) for those with significant cognitive and/or functional limitations, frailty, severe comorbidities, and a less favorable [id number] ratio of diabetes medications Follow Ups: Provided with educational literature and the diabetic [facility] diabetes basics booklet, [facility] 60g cho handout, and myplate tear sheet, A1c and complications handout, Diabetes Education Team Recommendations: pt endorses understanding of education without questions at this time. Pt needing insulin pens, pen needles, glucometer, glucometer strips, glucometer lancets, and ozempic prescriptions at discharge. Harish Baer with [facility] 8 team alerted to DM education completion Education Time 30 minutes Salena Terrell * Progress Notes - Lulu Jon - 03/10/2025 10:41 AM EDT Case Management Discharge Note Owen Salazar 84 y.o. male CSN: [id number] Admission: 03/06/2025 7:34 PM Primary Problem: ROSA (acute kidney injury) Primary Tool Carrier: Primary Caregiver: Self Assistance Available at Discharge: Availability of Care Givers (#Hours): (Family can assist as needed.) Family/Tool Carrier(s) Willingness Assessed to care for patient at home: Yes Housing Circumstances-Z Codes: Housing Circumstances (select all that apply): None Applicable Patient Referred to Financial or Community Resources: N/A Discharge Facility/Level of Care Needs: Discharge Facility/Level of Care Needs: 1-Home or Self Care Patient's Choice of Community Agency(s): N/A Patient/Family Anticipated Services at Transition: Patient/Family Anticipated Services at Transition: none DME/Equipment Needed after Discharge: Equipment Currently Used at Home: cane, straight Equipment Needed After Discharge: cane, straight Readmission Within the Last 30 Days: Readmission Within the Last 30 Days: no previous admission in last 30 days Medicare Documentation: Medicare Second Notice?: Yes Date Second Notice Completed: 03/10/25 Time Second Notice Completed: 1030 Medicare Second Notice Recieved By: Patient, copy placed in patient's chart by CM Follow-up: No follow-up provider specified. Discharge Transportation: Transportation Anticipated: family or friend will provide Transportation Home at Discharge: Family/Friend will Provide (Son to provide ride home) Has discharge transport been arranged?: Yes What day is the transport expected?: 03/10/25 Follow Up Transport: Transportation Needed to Follow up Appoinments: Family/Friend will Provide Additional Comments: Per MD patient is medically ready for discharge on this date. Team met with patient at bedside. Patient denies any d/c needs-has cane, and stated his daughter is going to get sanjeev walker to use. Son will provide ride home. CM went over IMM letter. Patient verbalized understanding. CM will continue to follow until discharged. Lulu Jon * Consults - Aneesh Franco RN - 03/10/2025 1:55 AM EDT Labs obtained with US in the left AC. Specimens left at bedside. RN notified * Care Plan - Alondra Quiros - 03/09/2025 11:53 PM EDT Problem: Adult Inpatient Plan of Care Goal: Plan of Care Review Outcome: Ongoing, Progressing Flowsheets Taken 03/09/20252349 Progress: improving Plan of Care Reviewed With: patient Taken 03/08/20252347 Outcome Evaluation: Patient understands plan of care for this shift and his work of breathing has improved Goal: Patient-Specific Goal (Individualized) Outcome: Ongoing, Progressing Flowsheets (Taken 03/09/20251929) Patient/Family-Specific Goals (Include Timeframe): pt will remain safe and free of harm and injuries throughout shift Individualized Care Needs: Safety Anxieties, Fears or Concerns: none stated Goal: Absence of Hospital-Acquired Illness or Injury Outcome: Ongoing, Progressing Intervention: Prevent Skin Injury Flowsheets Taken 03/09/20252349 Skin Protection: incontinence pads utilized Taken 03/09/20251929 Body Position: weight shifting Intervention: Prevent and Manage VTE (Venous Thromboembolism) Risk Flowsheets (Taken 03/09/20251929) VTE Prevention/Management: bilateral SCDs (sequential compression devices) off medication Intervention: Prevent Infection Flowsheets (Taken 03/09/20252349) Infection Prevention: environmental surveillance performed hand hygiene promoted rest/sleep promoted single patient room provided Goal: Optimal Comfort and Wellbeing Outcome: Ongoing, Progressing Intervention: Monitor Pain and Promote Comfort Flowsheets (Taken 03/09/20252349) Pain Management Interventions: care clustered emotional support rest Intervention: Provide Person-Centered Care Flowsheets (Taken 03/09/20252349) Trust Relationship/Rapport: care explained choices provided emotional support provided empathic listening provided questions answered questions encouraged reassurance provided thoughts/feelings acknowledged Problem: Fall Injury Risk Goal: Absence of Fall and Fall-Related Injury Outcome: Ongoing, Progressing Intervention: Identify and Manage Contributors Flowsheets (Taken 03/09/20252349) Medication Review/Management: medications reviewed Self-Care Promotion: independence encouraged Intervention: Promote Injury-Free Environment Flowsheets (Taken 03/09/20252349) Safety Promotion/Fall Prevention: activity supervised clutter-free environment maintained fall prevention program maintained lighting adjusted nonskid shoes/slippers when out of bed mobility aid in reach room organization consistent safety round/check completed toileting scheduled assistive device/personal items within reach Problem: Acute Kidney Injury/Impairment Goal: Fluid and Electrolyte Balance Outcome: Ongoing, Progressing Intervention: Monitor and Manage Fluid and Electrolyte Balance Flowsheets (Taken 03/09/20252349) Fluid/Electrolyte Management: fluids provided Goal: Improved Oral Intake Outcome: Ongoing, Progressing Intervention: Promote and Optimize Oral Intake Flowsheets (Taken 03/09/20252349) Oral Nutrition Promotion: rest periods promoted Nutrition Interventions: meal set-up provided Goal: Effective Renal Function Outcome: Ongoing, Progressing Intervention: Monitor and Support Renal Function Flowsheets (Taken 03/09/20252349) Stabilization Measures: legs elevated Medication Review/Management: medications reviewed Problem: Functional Deficit Goal: Improved Balance and Postural Control Outcome: Ongoing, Progressing Intervention: Optimize Balance and Safe Activity Flowsheets (Taken 03/09/20252349) Activity Management: activity adjusted per tolerance activity encouraged Adaptive Equipment Use: used with assistance Safety Promotion/Fall Prevention: activity supervised clutter-free environment maintained fall prevention program maintained lighting adjusted nonskid shoes/slippers when out of bed mobility aid in reach room organization consistent safety round/check completed toileting scheduled assistive device/personal items within reach Self-Care Promotion: independence encouraged Problem: Self-Care Deficit Goal: Improved Ability to Complete Activities of Daily Living Outcome: Ongoing, Progressing Intervention: Promote Activity and Functional [place] Flowsheets (Taken 03/09/20252349) Activity Assistance Provided: assistance, 1 person Adaptive Equipment Use: used with assistance Self-Care Promotion: independence encouraged * Care Plan - Gwen Gongora RN - 03/09/2025 7:31 PM EDT Problem: Adult Inpatient Plan of Care Goal: Plan of Care Review Outcome: Ongoing, Progressing Flowsheets (Taken 03/09/20251928) Progress: no change Plan of Care Reviewed With: patient Goal: Patient-Specific Goal (Individualized) Outcome: Ongoing, Progressing Flowsheets (Taken 03/09/2025 0800) Patient/Family-Specific Goals (Include Timeframe): pt will remain safe and free of harm and injuries throughout shift Individualized Care Needs: Safety Anxieties, Fears or Concerns: none stated Goal: Absence of Hospital-Acquired Illness or Injury Outcome: Ongoing, Progressing Intervention: Identify and Manage Fall Risk Flowsheets (Taken 03/09/20251928) Safety Promotion/Fall Prevention: activity supervised assistive device/personal items within reach clutter-free environment maintained nonskid shoes/slippers when out of bed mobility aid in reach lighting adjusted fall prevention program maintained safety round/check completed toileting scheduled Intervention: Prevent Skin Injury Flowsheets (Taken 03/09/20251928) Body Position: weight shifting Skin Protection: incontinence pads utilized Intervention: Prevent and Manage VTE (Venous Thromboembolism) Risk Flowsheets (Taken 03/09/20251928) VTE Prevention/Management: bilateral SCDs (sequential compression devices) off medication Intervention: Prevent Infection Flowsheets (Taken 03/09/20251928) Infection Prevention: environmental surveillance performed equipment surfaces disinfected hand hygiene promoted visitors restricted/screened single patient room provided rest/sleep promoted personal protective equipment utilized Goal: Optimal Comfort and Wellbeing Outcome: Ongoing, Progressing Intervention: Monitor Pain and Promote Comfort Flowsheets (Taken 03/09/20251928) Pain Management Interventions: relaxation techniques promoted quiet environment facilitated Intervention: Provide Person-Centered Care Flowsheets (Taken 03/09/20251928) Trust Relationship/Rapport: choices provided emotional support provided empathic listening provided questions answered thoughts/feelings acknowledged reassurance provided questions encouraged Problem: Fall Injury Risk Goal: Absence of Fall and Fall-Related Injury Outcome: Ongoing, Progressing Intervention: Identify and Manage Contributors Flowsheets (Taken 03/09/20251928) Medication Review/Management: medications reviewed Self-Care Promotion: independence encouraged Intervention: Promote Injury-Free Environment Flowsheets (Taken 03/09/20251928) Safety Promotion/Fall Prevention: activity supervised assistive device/personal items within reach clutter-free environment maintained nonskid shoes/slippers when out of bed mobility aid in reach lighting adjusted fall prevention program maintained safety round/check completed toileting scheduled Problem: Acute Kidney Injury/Impairment Goal: Fluid and Electrolyte Balance Outcome: Ongoing, Progressing Intervention: Monitor and Manage Fluid and Electrolyte Balance Flowsheets (Taken 03/09/20251928) Fluid/Electrolyte Management: fluids provided Problem: Self-Care Deficit Goal: Improved Ability to Complete Activities of Daily Living Outcome: Ongoing, Progressing Intervention: Promote Activity and Functional [place] Flowsheets (Taken 03/09/20251928) Activity Assistance Provided: assistance, 1 person Adaptive Equipment Use: used with assistance Self-Care Promotion: independence encouraged * Progress Notes - Harish Baer MD - 03/09/2025 3:29 PM EDT Subjective: No acute events overnight Review of Systems: Constitutional: no fevers, no weakness, + weight loss, normal appetite Cardiovascular: no chest pain, + palpitations, + edema Respiratory: + shortness of breath, + cough Gastrointestinal: no nausea, no vomiting, no diarrhea, no constipation, no abdominal pain Musculoskeletal: no back pain, no shoulder pain, no hip pain, no knee pain All other review of systems are negative. Active Medications: Current Scheduled Medications[1] Current Continuous Medications[2] Current PRN Medications[3] Objective: Visit Vitals BP 103/58 Pulse 76 Temp 36.4 ??C (97.6 ??F) Resp 20 Ht 1.82 m (5' 11.65 ) Wt 84.5 kg (186 lb 4.6 oz) SpO2 95% BMI 25.51 kg/m?? Smoking Status Former BSA 2.07 m?? Physical Exam: General: AOx3, no acute distress, well-nourished Cardiovascular: regular s1/s2, no murmurs, no JVD, no lower extremity edema Pulmonary: clear, no crackles, no wheezes, non-labored Abdom: normal bowel sounds, soft, non-tender, non-distended Muskuloskeletal: full RoM in BUE, full RoM in Knees, full RoM in Hips Dermatologic: no rashes, no lesions, no ulcers Labs: Lab Results Component Value Date NA 133 (L) 03/09/2025 K 3.5 (L) 03/09/2025 CL 101 03/09/2025 CO2 22 03/09/2025 BUN 34 (H) 03/09/2025 CREATININE 3.32 (H) 03/09/2025 ALT 11 03/09/2025 AST 17 03/09/2025 Lab Results Component Value Date WBC 4.01 03/09/2025 HGB 8.8 (L) 03/09/2025 PLT 163 03/09/2025 MCV 90 03/09/2025 ASSESSMENT/PLAN: Owen Salazar: 84yo male PMHx HFpEF, DVT/PE on xarelto, HTN, T2DM, and CKD transferred from OSH to ER for worsening SALVADOR x 2 months #) Acute Kidney Injury vs Chronic Kidney Disease #) Possible Polycystic Kidney Disease Recent Creatinine trend: 3.63->3.38->(IVF)->3.18->3.32 Recent Cystatin C trend: 2.96->(IVF)->3.14->3.11 Baseline Creatinine is Unknown Urinalysis is not consistent with infection On examination, the abdomen is soft and not tense, which goes against abdominal hypertension His labs look like volume overload, with no alkalosis, BNP 2403, and history on HF. On exam, he looks euvolemic or dry, with no JVD, clear lungs, no edema (now, he says recent) and heis thirsty. He denies orthopnea and says he has had a 15pound wt loss recently which he attributes to Ozempic but depending on the time frame may also be hypovolemia. I suspect that he was previously hypervolemic, then dried out with diuresis and now is a bit dry. This may not be new - he says his insulin requirements decreased which may be due to better diet orelse reduced renal clearance of Insulin. The FE-Urea is 40.79, which is over 35 percent, consistent with either an intrinsic-renal or post-renal cause This may be either ATN or CKD from uncontrolled diabetes and prolonged overdiuresis Renal Ultrasound (03/08/25) showed: Increased parenchymal echogenicity suggesting medical renal disease. No hydronephrosis. Multiple bilateral renal cysts may suggest polycystic kidney disease. If this is CKD, then is is advanced. Current eGFR (Cr=3.32, Cystatin-C=3.11, age=84, wt=85kg) 17 (CKD EPI 2020) 17 (CKD EPI Cr-CystatinC 2020) 16 (CKD EPI CystatinC 2011) /Plan: - CT Abd/Pelvis - AD-PKD required 10+ cysts of 5+mm in each kidney - Tamsulosin - Hold Diuretics - Hold Lisinopril #) Nephrotic Syndrome 24hr Urine Protein shows 4.99 g/day protein. Serum Albumin is 1.9 Much of this proteinuria may be albumin (making MM unlikely), but sadly our lab will not quantify albuminuria on a 24hr collection, so unclear how much of this protein is not albumin. The differential includes: Diabetes (most likely), and less likely Myeloma or Malignancy-related Membranous, or others. He did have recurrent PE and a serum Albumin of 2.0, so this could be Nephrotic syndrome. /Plan: - Check for causes: serum and urine free light chains (kappa and lambda), SPEP and UPEP, RheumatoidFactor to rule out cryoglobulinemia, LC, C3 and C4 complement levels, anti-GBM antibody, PLA2R antibody (70% sensitive in Ideopathic Membranous GN but may also present in secondary), Hepatitis B, Hep atitis C antibodies #) Sinus Tachycardia EKG shows sinus with PVC's and he says he has palpitations with exertion. No overt signs of HF, no wheezes on exam. This may be arrhythmia rather than a volume issue. /Plan: - Continue home Carvedilol 25mg PO BID #) Chronic Heart Failure, Preserved Ejection Fraction /Plan: - Angiotensin Blockade Hold RALPH/ARB due to ORSA - Beta Blockade Carvedilol 25mg PO BID - SGLT2 Inhibitor No SGLT2 because patient has PKD and also eGFR below 30 - Primo Blockade Hold mineralocorticoid receptor antagonist due to ROSA - Diuresis Hold diuretics while hypovolemic #) Metabolic Acidosis The serum Bicarbonate is 16 The anion gap is 13 The serum pH on an ABG is 7.39 This is a primary acidosis, since compensation will only partially restore the pH to 7.35-7.45 Serum lactate is normal, PaCO2 is normal Urine Anion Gap (Na + K - Cl) is 36, (52 + 30 - 46) The urine anion gap is positive, which suggests either reduced renal acid clearance from CKD or else a renal tubular acidosis He received IV D5W with 150mEq/L Bicarb at 125 mL/hr for 2 days. 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 - continue Apixaban (changed from Rivaroxaban due to low eGFR) #) Anemia suspect of chronic disease -iron studies, ferritin, Vitamin B12, folate #) Diabetes, Uncontrolled A1c=9.3 /Plan: - Insulin Glargine 5 units QHS Sliding scale Insulin #) HLD: continue statin and fenofibrate #) GERD: continue PPI #) Debility: cane/walker at baseline; fall precautions #) Hypomagnesemia - Monitor and replace #) Fluids/Nutrition - Regular Renal diet #) Prophylaxis - Apixaban (changed from Rivaroxaban due to low eGFR) #) Code Status FULL CODE Harish Baer MD PhD Division of Hospital Medicine [phone] [1] apixaban, 5 mg, Oral, BID atorvastatin, 10 mg, Oral, Nightly carvedilol, 25 mg, Oral, BID insulin glargine-yfgn, 5 Units, Subcutaneous, Nightly insulin lispro, 0-5 Units, Subcutaneous, TID with meals insulin lispro, 0-3 Units, Subcutaneous, Twice at night pantoprazole, 40 mg, Oral, Daily sodium bicarbonate, 650 mg, Oral, 4x daily sodium chloride, 10 mL, Intravenous, q12h tamsulosin, 0.4 mg, Oral, Daily with dinner Umeclidinium-Vilanterol, 1 Inhalation, Inhalation, Daily [2] [3] PRN medications: acetaminophen, glucose OR dextrose 10 % OR dextrose 10 % OR glucagon (human recombinant), ipratropium-albuterol, melatonin, polyethylene glycol, Insert peripheral IV AND Saline lock IV AND sodium chloride AND sodium chloride * Progress Notes - Susie Garcia - 03/09/2025 10:24 AM EDT Occupational Therapy Evaluation Patient Name: Owen Salazar Today's Date: 03/09/2025 OT Discharge Recommendations: Home with assistance Equipment Recommended: Patient owns appropriate equipment History Owen Salazar is 84 y.o. male admitted 03/06/2025 for work-up of ROSA (acute kidney injury). 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 Past Surgical History Patient has a past surgical history that includes No past surgeries. Precautions Left Lower Extremity Weight Bearing Status: Weight Bearing as Tolerated Right Lower Extremity Weight Bearing Status: Weight Bearing as Tolerated Left Upper Extremity Weight Bearing Status : Weight bearing as tolerated Right Upper Extremity Weight Bearing Status : Weight bearing as tolerated Medical Precautions: Fall precautions Subjective Agreeable to participation Participants in Care Family/Caregiver Present: No Presentation Oxygen Therapy: None (Room air) Lines and Tubes: Intravenous access, Telemetry Pre-Session: Supine, Head of bed elevated, Lines intact Post-Session: Sitting in chair, RN notified, Lines intact, Chair alarm, Call light in reach Post-Session Comments: Patient positioned for comfort and left with all needs within reach Home Living/Set-up Lives With: Spouse Home Type: House Home Adaptive Equipment: Cane Home Layout: One level Bathroom: Tub/Shower: Tub/Shower combo Bathroom: Toilet: Standard Prior Level of Function Receives Help From: No assist required prior to admission Level of Mobility: Ambulatory- community Mobility [place]: Independent gait with device History of Falls: Yes ADL Performance: Independent Patient/Family Goals Statement agreeable to participation Objective Pain None reported this session Delirium Screening RASS: Alert and calm Confusion Assessment Method-ICU (CAM-ICU/PCAM-ICU) Feature 3: Altered Level of Consciousness: Negative Cognition Overall Cognitive Status: Within Functional Limits Arousal/Alertness: Appropriate responses to stimuli Mood/Behavior: Alert Orientation Level: Oriented X4 Single Step Commands: Consistently Multi-Step Commands: Consistently Method of Communication: Verbal Right Upper Extremity Examination RUE ROM Assessment RUE Assessment: Within Functional Limits Manual Muscle Testing - RUE: Within functional limits Left Upper Extremity Examination LUE ROM Assessment LUE Assessment: Within Functional Limits Manual Muscle Testing - LUE: Within functional limits Right Lower Extremity Examination RLE ROM Assessment RLE Assessment: Within Functional Limits Manual Muscle Testing - RLE: Within functional limits Left Lower Extremity Examination LLE ROM Assessment LLE Assessment: Within Functional Limits Manual Muscle Testing: Within functional limits Bed Mobility Bed Mobility Exam: Scooting/Bridging Level of [place]: Stand-by assist Physical/Nonphysical Assist: Supervision Bed Mobility Exam: Supine to Sit Level of [place]: Stand-by assist Physical/Nonphysical Assist: Supervision Bed Mobility Exam: Sit to Supine Level of [place]: Stand-by assist (patient spontaneously returned to supine after reports of dizziness) Physical/Nonphysical Assist: Supervision Transfers Transfer Exam: Sit to stand Level of [place]: Stand-by assist Physical/Nonphysical Assist: Supervision Transfer Exam: Stand to Sit Level of [place]: Stand-by assist Physical/Nonphysical Assist: Supervision Balance Static Sitting Balance Static Sitting-Balance Support: Feet supported Static Sitting-Level of Assistance: Supervision Dynamic Sitting Balance Dynamic Sitting-Balance Support: Feet supported Level of Assistance: Supervision Static Standing Balance Static Standing-Balance Support: No upper extremity supported Static Standing-Level of Assistance: Supervision Dynamic Standing Balance Dynamic Standing-Balance Support: Left upper extremity support Dynamic Standing Level of Assistance: Contact guard Dynamic Standing - Interventions: pt displays instability when dynamic movements in standing Self-Care Interventions Feeding Feeding Level of Assistance: Independent Feeding Where Assessed: Chair Level Grooming Grooming Level of Assistance: Setup Grooming Where Assessed: Edge of bed Lower Extremity Dressing Sock Level of Assistance: Contact guard LE Dressing Where Assessed: Edge of bed Toileting Toileting Level of Assistance: Supervision Where Assessed: Bedside commode Standardized Assessments [facility] 6-Click Daily Activities Help from Other: Don/Doff Regular Lower Body Clothings: Little Help From Other: Bathing: Little Help From Other: Toileting: Little Help From Other: Don/Doff Upper Body Clothings: None Help From Other: Grooming: None Help From Other: Eating Meals: None [facility] 6 Click - Daily Activities Score: 21 Assessment Patient would benefit from cont'd skilled OT while in acute setting for cognitive, safety, strength, balance, endurance and activity tolerance training in prep for ADL/IADL tasks as pt appears to be most limited by generalized weakness, instability in standing due to dizziness, and fatigue. Patient remains at high risk for falling with increased assist from staff for basic self care routines. Patient is agreeable to OT POC and discharge recommendations- pending functional progress while in acute setting. OT Findings: Impaired ADL performance, Impaired IADL performance, Decreased endurance/ventilation/gas exchange, Impaired balance, Impaired functional mobility, Impaired judgment during ADL Rehab Potential: Good, to achieve stated therapy goals Eval Complexity Occupational Profile: Brief history including review of medical/therapy records relating to presenting problem Performance Deficits: Activities of daily living (ADLs), Instrumental activities of daily living (IADLs), Habits, Routines, Roles, Leisure Clinical Decision Making: Low Overall Eval complexity: Low OT Recommendations Discharge Destination: Home with assistance Discharge Equipment: Patient owns appropriate equipment Plan Planned OT Interventions ADL retraining, Balance training, Bed mobility Training, Joint mobilization, Strengthening, Functional mobility, Transfer training, Caregiver education, Stretching OT Frequency 2 - 5 times per week OT Duration 2 weeks Goals OT GOAL DETAILS Time Frame OT Goal 1: Pt will be Mod I for functional ambulation to and from bathroom 2 weeks OT Goal 2: Pt will be independent with toileting, in bathroom 2 weeks OT Goal 3: Pt will be independent with LB dress, starting in seated position 2 weeks Written by Susie Garcia on 03/09/25 at 1:51 PM. * Progress Notes - Obdulio Duran - 03/09/2025 10:23 AM EDT Physical Therapy Evaluation Patient Name: Owen Salazra Today's Date: 03/09/2025 PT Discharge Recommendations: Home with assistance Equipment Recommended: Patient owns appropriate equipment History Owen Salazar is 84 y.o. male admitted 03/06/2025 for work-up of Acute kidney injury superimposed on CKD. 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 Past Surgical History Patient has a past surgical history that includes No past surgeries. Precautions Left Lower Extremity Weight Bearing Status: Weight Bearing as Tolerated Right Lower Extremity Weight Bearing Status: Weight Bearing as Tolerated Left Upper Extremity Weight Bearing Status : Weight bearing as tolerated Right Upper Extremity Weight Bearing Status : Weight bearing as tolerated Medical Precautions: Fall precautions Subjective Owen Salazar is an 84 y/o male who presents to [facility] with shortness of breath. Participants in Care Family/Caregiver Present: No Presentation Oxygen Therapy: None (Room air) Lines and Tubes: Intravenous access, Telemetry Pre-Session: Supine, Head of bed elevated, Lines intact Post-Session: Sitting in chair, RN notified, Lines intact, Chair alarm, Call light in reach Post-Session Comments: Patient positioned for comfort and left with all needs within reach Home Living/Set-up Lives With: Spouse Home Type: House Home Adaptive Equipment: Cane Home Layout: One level Bathroom: Tub/Shower: Tub/Shower combo Bathroom: Toilet: Standard Prior Level of Function Receives Help From: No assist required prior to admission Level of Mobility: Ambulatory- community Mobility [place]: Independent gait with device History of Falls: Yes ADL Performance: Independent Patient/Family Goals Patient stated desire to return home Objective Pain Patient reported no pain when asked. Delirium Screening RASS: Alert and calm Confusion Assessment Method-ICU (CAM-ICU/PCAM-ICU) Feature 3: Altered Level of Consciousness: Negative Cognition Overall Cognitive Status: Within Functional Limits Arousal/Alertness: Appropriate responses to stimuli Mood/Behavior: Alert Orientation Level: Oriented X4 Single Step Commands: Consistently Multi-Step Commands: Consistently Method of Communication: Verbal Right Upper Extremity Examination RUE Assessment: Within Functional Limits Manual Muscle Testing - RUE: Within functional limits Left Upper Extremity Examination LUE ROM Assessment LUE Assessment: Within Functional Limits Manual Muscle Testing - LUE Manual Muscle Testing - LUE: Within functional limits Right Lower Extremity Examination RLE ROM Assessment RLE Assessment: Within Functional Limits Manual Muscle Testing - RLE Manual Muscle Testing - RLE: Within functional limits Left Lower Extremity Examination LLE Assessment: Within Functional Limits Manual Muscle Testing: Within functional limits Bed Mobility Bed Mobility Exam: Scooting/Bridging Level of [place]: Stand-by assist Physical/Nonphysical Assist: Supervision Bed Mobility Exam: Supine to Sit Level of [place]: Stand-by assist Physical/Nonphysical Assist: Supervision Bed Mobility Exam: Sit to Supine Level of [place]: Stand-by assist (patient spontaneously returned to supine after reports of dizziness) Physical/Nonphysical Assist: Supervision Transfers Transfer Exam: Sit to stand Level of [place]: Stand-by assist Physical/Nonphysical Assist: Supervision Transfer Exam: Stand to Sit Level of [place]: Stand-by assist Physical/Nonphysical Assist: Supervision Ambulation Device: No device Assistance: Contact guard assist Distance : 28 ft. in room Ambulation Comments: Patient demonstrates decreased hollie and step length bilaterally with no loss of balance, reported dizziness [facility] that quickly subsided Therapeutic Activity ( 12 minutes) Patient participated in education regarding role of therapy services, discharge recommendations, transfers and balance activities with physical therapist after assessment. Patient also provided with education regarding pace of transfers and mobility, to allow body to reach equilibrium, and precautions regarding orthostasis. Standardized Assessments Standardized Assessments Standardized Assessments: [facility] 6-Clicks Mobility Assessment [facility] 6-Clicks Mobility Assessment Difficulty patient has turning over in bed (including adjusting bedclothes, sheets, and blankets)?:None Difficulty patient has sitting down on and standing up from a chair with arms (wheelchair, bedside commode, etc.)?: A little Difficulty patient has moving from lying on back to sitting on the side of the bed?: A little How much help does the patient need moving to and from a bed to a chair (including a wheelchair)?: A little How much help does the patient need to walk in hospital room?: A little How much help does the patient need climbing 3-5 steps with a railing?: A little [facility] 6-Clicks Mobility Assessment Total : 19 Standardized Assessments Standardized Assessments Standardized Assessments: [facility] 6-Clicks Mobility Assessment [facility] 6-Clicks Mobility Assessment Difficulty patient has turning over in bed (including adjusting bedclothes, sheets, and blankets)?:None Difficulty patient has sitting down on and standing up from a chair with arms (wheelchair, bedside commode, etc.)?: A little Difficulty patient has moving from lying on back to sitting on the side of the bed?: A little How much help does the patient need moving to and from a bed to a chair (including a wheelchair)?: A little How much help does the patient need to walk in hospital room?: A little How much help does the patient need climbing 3-5 steps with a railing?: A little [facility] 6-Clicks Mobility Assessment Total : 19 No data recorded Assessment Patient required increased for positioning to increase efficiency of transfers and to allow body toadjust prior to initiating out of bed mobility activities. Patient demonstrates good mobility limited by periods of dizziness and subjective reports of shortness of breath with higher level activities. Patient would benefit from further follow up to ensure functional independence. Impairments: Impaired balance, Impaired functional mobility/transfers, Impaired locomotion Activity Limitations: Inability to ambulate independently, Inability to transfer independently, Inability to complete ADLs independently Participation Restrictions: Self-care, Home management, Community leisure Diagnosis: Impaired functional mobility Rehab Potential: Good, to achieve stated therapy goals Eval Complexity History Profile: 1 - 2 personal factors and/or comorbidities Clinical Presentation: Evolving clinical presentation with changing characteristics Clinical Decision Making: Moderate complexity PT Recommendations Discharge Destination: Home with assistance Discharge Equipment: Patient owns appropriate equipment Plan Planned PT Interventions Balance training, Bed mobility training, Gait training, Transfer training, Strengthening, Functional Mobility PT Frequency 2 - 5 times per week PT Duration 2 weeks Goals PT GOAL DETAILS Time Frame PT Goal 1: Patient will be independent with HEP, discharge recommendations 2 weeks PT Goal 2: Patient will transfer supine<>sit independently 2 weeks PT Goal 3: Patient will transfer sit-stand and bed<>chair independently 2 weeks PT Goal 4: Patient will ambulate 450 ft. with MOD I and AAD 2 weeks Written by Obdulio Duran on 03/09/25 at 11:59 AM. * Consults - Aneesh Franco RN - 03/09/2025 12:35 AM EDT Labs obtained with US in the left AC. Specimens labeled, scanned and sent to lab. * Care Plan - MichelleAlondra sousa Terri - 03/08/2025 11:52 PM EDT Problem: Adult Inpatient Plan of Care Goal: Plan of Care Review Outcome: Ongoing, Progressing Flowsheets (Taken 03/08/20252347) Progress: no change Outcome Evaluation: Patient understands plan of care for this shift and his work of breathing has improved Plan of Care Reviewed With: patient Goal: Patient-Specific Goal (Individualized) Outcome: Ongoing, Progressing Flowsheets (Taken 03/08/2025 1930) Patient/Family-Specific Goals (Include Timeframe): pt will remain safe and free of harm and injuries through shift Individualized Care Needs: Safety Anxieties, Fears or Concerns: none stated Goal: Absence of Hospital-Acquired Illness or Injury Outcome: Ongoing, Progressing Intervention: Identify and Manage Fall Risk Flowsheets (Taken 03/08/20252199) Safety Promotion/Fall Prevention: activity supervised mobility aid in reach nonskid shoes/slippers when out of bed room organization consistent safety round/check completed toileting scheduled Intervention: Prevent Skin Injury Flowsheets Taken 03/08/20252347 Skin Protection: incontinence pads utilized Taken 03/08/20252199 Body Position: weight shifting Intervention: Prevent and Manage VTE (Venous Thromboembolism) Risk Flowsheets (Taken 03/08/20252199) VTE Prevention/Management: bilateral SCDs (sequential compression devices) off medication Intervention: Prevent Infection Flowsheets (Taken 03/08/20252347) Infection Prevention: environmental surveillance performed rest/sleep promoted Goal: Optimal Comfort and Wellbeing Outcome: Ongoing, Progressing Intervention: Monitor Pain and Promote Comfort Flowsheets (Taken 03/08/20252347) Pain Management Interventions: emotional support pillow support provided rest position adjusted Intervention: Provide Person-Centered Care Flowsheets (Taken 03/08/20252347) Trust Relationship/Rapport: care explained choices provided emotional support provided empathic listening provided questions answered questions encouraged reassurance provided thoughts/feelings acknowledged Problem: Fall Injury Risk Goal: Absence of Fall and Fall-Related Injury Outcome: Ongoing, Progressing Intervention: Identify and Manage Contributors Flowsheets (Taken 03/08/20252347) Medication Review/Management: medications reviewed Self-Care Promotion: independence encouraged Intervention: Promote Injury-Free Environment Flowsheets (Taken 03/08/2025 2200) Safety Promotion/Fall Prevention: activity supervised mobility aid in reach nonskid shoes/slippers when out of bed room organization consistent safety round/check completed toileting scheduled Problem: Acute Kidney Injury/Impairment Goal: Fluid and Electrolyte Balance Outcome: Ongoing, Progressing Intervention: Monitor and Manage Fluid and Electrolyte Balance Flowsheets (Taken 03/08/20252347) Fluid/Electrolyte Management: fluids provided Goal: Improved Oral Intake Outcome: Ongoing, Progressing Intervention: Promote and Optimize Oral Intake Flowsheets (Taken 03/08/20252347) Oral Nutrition Promotion: rest periods promoted Nutrition Interventions: meal set-up provided Goal: Effective Renal Function Outcome: Ongoing, Progressing Intervention: Monitor and Support Renal Function Flowsheets (Taken 03/08/20252347) Stabilization Measures: legs elevated Medication Review/Management: medications reviewed * Care Plan - Gwen Gongora RN - 03/08/2025 6:42 PM EDT Problem: Adult Inpatient Plan of Care Goal: Plan of Care Review Outcome: Ongoing, Progressing Flowsheets (Taken 03/08/20251840) Progress: improving Plan of Care Reviewed With: patient Goal: Patient-Specific Goal (Individualized) Flowsheets (Taken 03/08/2025 0800) Patient/Family-Specific Goals (Include Timeframe): pt will remain safe and free of harm and injuries throughout shift Individualized Care Needs: Safety Anxieties, Fears or Concerns: none stated Goal: Absence of Hospital-Acquired Illness or Injury Outcome: Ongoing, Progressing Intervention: Identify and Manage Fall Risk Flowsheets (Taken 03/08/20251840) Safety Promotion/Fall Prevention: activity supervised assistive device/personal items within reach clutter-free environment maintained mobility aid in reach lighting adjusted room organization consistent fall prevention program maintained safety round/check completed nonskid shoes/slippers when out of bed Intervention: Prevent Skin Injury Flowsheets (Taken 03/08/20251840) Body Position: weight shifting Skin Protection: incontinence pads utilized Intervention: Prevent and Manage VTE (Venous Thromboembolism) Risk Flowsheets (Taken 03/08/20251840) VTE Prevention/Management: bilateral SCDs (sequential compression devices) off Intervention: Prevent Infection Flowsheets (Taken 03/08/20251840) Infection Prevention: cohorting utilized environmental surveillance performed equipment surfaces disinfected hand hygiene promoted visitors restricted/screened single patient room provided rest/sleep promoted personal protective equipment utilized Goal: Optimal Comfort and Wellbeing Outcome: Ongoing, Progressing Intervention: Monitor Pain and Promote Comfort Flowsheets (Taken 03/08/20251840) Pain Management Interventions: position adjusted relaxation techniques promoted Intervention: Provide Person-Centered Care Flowsheets (Taken 03/08/20251840) Trust Relationship/Rapport: care explained choices provided emotional support provided Problem: Fall Injury Risk Goal: Absence of Fall and Fall-Related Injury Outcome: Ongoing, Progressing Intervention: Identify and Manage Contributors Flowsheets (Taken 03/08/20251840) Medication Review/Management: medications reviewed Self-Care Promotion: independence encouraged Intervention: Promote Injury-Free Environment Flowsheets (Taken 03/08/20251840) Safety Promotion/Fall Prevention: activity supervised assistive device/personal items within reach clutter-free environment maintained mobility aid in reach lighting adjusted room organization consistent fall prevention program maintained safety round/check completed nonskid shoes/slippers when out of bed Problem: Acute Kidney Injury/Impairment Goal: Fluid and Electrolyte Balance Outcome: Ongoing, Progressing Intervention: Monitor and Manage Fluid and Electrolyte Balance Flowsheets (Taken 03/08/20251840) Fluid/Electrolyte Management: electrolyte-binding therapy initiated electrolyte supplement adjusted * Progress Notes - Libra Gerber - 03/08/2025 2:50 PM EDT Music Therapy Note Subjective: Patient Presented: Lying in bed Initial Behavioral Presentation: Drowsy/fatigued, Neutral Intrasession Behavioral Presentation: Neutral, Drowsy/fatigued After Disposition/ Affect: Drowsy/fatigued, Neutral Treatment Goals & Interventions: Increase: Autonomy & control, Supportive environment Music Therapy Interventions: Choice making, Receptive music listening Communications: Methods: Verbalizations Responses: Making choices, Indifference, Positive comments about the music Behavioral Observations: Responses: Active Listening, Eye contact, Making choices, Smiling Engagement Level: Minimal Engagement Comments: Comments: Pt initially refused MT services but then stated, Go ahead. Play me a song. Pt brieflyshared about music preference and that he tried to learn guitar when he was younger. After MT- played and sang one song, pt thanked MT- BC very much and stated, I am going to take a nap now. I have not slept since I got here. Pt closed eyes and appeared calm and comfortable. Length of Visit: Length of Visit: 10 min Plan of Care: Plan of Care: Continue to address above goals and additional goals as appropriate during hospitalization * Progress Notes - Harish Baer MD - 03/08/2025 2:33 PM EDT Subjective: No acute events overnight He is sitting on the side of bed, eating breakfast. No further palpitations. He discussed his experiences [place] as well as fishing in [place]. Review of Systems: Constitutional: no fevers, no weakness, + weight loss, normal appetite Cardiovascular: no chest pain, + palpitations, + edema Respiratory: + shortness of breath, + cough Gastrointestinal: no nausea, no vomiting, no diarrhea, no constipation, no abdominal pain Musculoskeletal: no back pain, no shoulder pain, no hip pain, no knee pain All other review of systems are negative. Active Medications: Current Scheduled Medications[1] Current Continuous Medications[2] Current PRN Medications[3] Objective: Visit Vitals BP 106/67 (BP Location: Left arm, Patient Position: Lying) Pulse 75 Temp 37.1 ??C (98.8 ??F) (Oral) Resp 18 Ht 1.82 m (5' 11.65 ) Wt 83 kg (182 lb 15.7 oz) SpO2 91% BMI 25.06 kg/m?? Smoking Status Former BSA 2.05 m?? Physical Exam: General: AOx3, no acute distress, well-nourished Cardiovascular: regular s1/s2, no murmurs, no JVD, no lower extremity edema Pulmonary: clear, no crackles, no wheezes, non-labored Abdom: normal bowel sounds, soft, non-tender, non-distended Muskuloskeletal: full RoM in BUE, full RoM in Knees, full RoM in Hips Dermatologic: no rashes, no lesions, no ulcers Labs: Lab Results Component Value Date NA 136 03/08/2025 K 4.1 03/08/2025 CL 108 (H) 03/08/2025 CO2 17 (L) 03/08/2025 BUN 33 (H) 03/08/2025 CREATININE 3.18 (H) 03/08/2025 ALT 9 (L) 03/08/2025 AST 22 03/08/2025 Lab Results Component Value Date WBC 4.93 03/08/2025 HGB 9.7 (L) 03/08/2025 PLT 172 03/08/2025 MCV 92 03/08/2025 ASSESSMENT/PLAN: Owen Salazar: 84yo male PMHx HFpEF, DVT/PE on xarelto, HTN, T2DM, and CKD [facility] worsening [place] x 2 months #) Acute Kidney Injury vs Chronic Kidney Disease Recent Creatinine trend: 3.63->3.38->(IVF)->3.18 Recent Cystatin C trend: 2.96->(IVF)->3.14 Baseline Creatinine is Unknown Urinalysis is not consistent with infection On examination, the abdomen is soft and not tense, which goes against abdominal hypertension His labs look like volume overload, with no alkalosis, BNP 2403, and history on HF. On exam, he looks euvolemic or dry, with no JVD, clear lungs, no edema (now, he says recent) and heis thirsty. He denies orthopnea and says he has had a 15pound wt loss recently which he attributes to Ozempic but depending on the time frame may also be hypovolemia. I suspect that he was previously hypervolemic, then dried out with diuresis and now is a bit dry. This may not be new - he says his insulin requirements decreased which may be due to better diet orelse reduced renal clearance of Insulin. The FE-Urea is 40.79, which is over 35 percent, consistent with either an intrinsic-renal or post-renal cause This may be either ATN or CKD from uncontrolled diabetes and prolonged overdiuresis /Plan: - Renal Ultrasound to estimate degree of CKD with renal atrophy and degree of cortical thickening, also to rule hydronephrosis (which may be asymptomatic) - Tamsulosin - Check PSA - Hold Diuretics - Hold Lisinopril #) Possible Nephrotic Proteinuria Urine Random Protein-Creatinine ratio = 10.3 suggesting almost 10g proteinuria The differential includes: Diabetes (likely), and less likely Myeloma or Malignancy-related Membranous, or others. He did have recurrent PE and a serum Albumin of 2.0, so this could be Nephrotic syndrome. Will confirm it first before a big workup /Plan: - Check 24hr Urine Protein and Albumin #) Metabolic Acidosis The serum Bicarbonate is 16 The anion gap is 13 The serum pH on an ABG is 7.39 This is a primary acidosis, since compensation will only partially restore the pH to 7.35-7.45 Serum lactate is normal, PaCO2 is normal Urine Anion Gap (Na + K - Cl) is 36, (52 + 30 - 46) The urine anion gap is positive, which suggests either reduced renal acid clearance from CKD or else a renal tubular acidosis /Plan: - Check random urine sodium, chloride, potassium to compute urine anion gap - IV D5W with 150mEq/L Bicarb at 125 mL/hr x8hrs #) Sinus Tachycardia EKG shows sinus with PVC's and he says he has palpitations with exertion. No overt signs of HF, no wheezes on exam. This may be arrhythmia rather than a volume issue. /Plan: - Continue home Carvedilol 25mg PO BID #) Chronic Heart Failure, Preserved Ejection Fraction /Plan: - Angiotensin Blockade Hold RALPH/ARB due to ROSA - Beta Blockade Carvedilol 25mg PO BID - SGLT2 Inhibitor No SGLT2 because patient has eGFR below 30 - Primo Blockade Hold mineralocorticoid receptor antagonist due to ROSA - Diuresis Hold diuretics while hypovolemic #) Chronic Obstructive Pulmonary Disease #) Dyspnea on exertion OSH CXR and D-Dimer normal PFTs (03/08/25) show FEV1/FVC = 69.35 /Plan: - Treat Stable COPD Vilanterol/Umeclidinium BID Scheduled - supplemental O2 to keep sat >88% #) 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 - continue Xarelto #) Anemia suspect of chronic disease -iron studies, ferritin, Vitamin B12, folate #) Diabetes, Uncontrolled A1c=9.3 /Plan: - Insulin Glargine 5 units QHS Sliding scale Insulin #) HLD: continue statin and fenofibrate #) GERD: continue PPI #) Debility: cane/walker at baseline; fall precautions #) Hypomagnesemia - Monitor and replace #) Fluids/Nutrition - Regular Renal diet #) Prophylaxis - Rivaroxaban as above #) Code Status FULL CODE Patient care included the following components: Complexity: a severe exacerbation or progression of 1 or more chronic illnesses or with side effects of treatment Data: Review of at least three lab results: inflammatory markers (WBC, CRP, Procal), renal functionmarkers (Creatinine, BUN, potassium), electrolyte levels (Potassium, Magnesium, Phos, Calcium) Risk: Drug therapy requiring intensive monitoring for toxicity, Drug therapy requiring monitoring for Acute Kidney Injury Harish Baer MD PhD Division of Hospital Medicine [phone] [1] atorvastatin, 10 mg, Oral, Nightly carvedilol, 25 mg, Oral, BID fenofibrate, 145 mg, Oral, Daily insulin lispro, 0-5 Units, Subcutaneous, TID with meals insulin lispro, 0-3 Units, Subcutaneous, Twice at night pantoprazole, 40 mg, Oral, Daily rivaroxaban, 15 mg, Oral, Daily with dinner sodium chloride, 10 mL, Intravenous, q12h [2] sodium bicarbonate 150 mEq in dextrose 5 % 1,000 mL infusion, 125 mL/hr, Last Rate: 125 mL/hr (03/08/25 1259) [3] PRN medications: acetaminophen, glucose OR dextrose 10 % OR dextrose 10 % OR glucagon (human recombinant), ipratropium-albuterol, melatonin, polyethylene glycol, Insert peripheral IV AND Saline lock IV AND sodium chloride AND sodium chloride * Care Plan - Jorge Thomas RN - 03/08/2025 12:18 AM EDT Problem: Adult Inpatient Plan of Care Goal: Plan of Care Review Outcome: Ongoing, Progressing Flowsheets (Taken 03/08/20257) Progress: improving Outcome Evaluation: work of breathing improved Plan of Care Reviewed With: patient Goal: Patient-Specific Goal (Individualized) Outcome: Ongoing, Progressing Flowsheets (Taken 03/07/20251999) Patient/Family-Specific Goals (Include Timeframe): 24 hour urine collecton Individualized Care Needs: safety Anxieties, Fears or Concerns: none stated Goal: Absence of Hospital-Acquired Illness or Injury Outcome: Ongoing, Progressing Intervention: Identify and Manage Fall Risk Flowsheets (Taken 03/08/20257) Safety Promotion/Fall Prevention: activity supervised assistive device/personal items within reach clutter-free environment maintained fall prevention program maintained nonskid shoes/slippers when out of bed Intervention: Prevent Skin Injury Flowsheets Taken 03/08/20257 Skin Protection: incontinence pads utilized pulse oximeter probe site changed Taken 03/07/20251999 Body Position: weight shifting Intervention: Prevent and Manage VTE (Venous Thromboembolism) Risk Flowsheets (Taken 03/07/20251999) VTE Prevention/Management: bilateral SCDs (sequential compression devices) off education provided Intervention: Prevent Infection Flowsheets (Taken 03/08/20257) Infection Prevention: environmental surveillance performed hand hygiene promoted personal protective equipment utilized rest/sleep promoted single patient room provided Goal: Optimal Comfort and Wellbeing Outcome: Ongoing, Progressing Intervention: Monitor Pain and Promote Comfort Flowsheets (Taken 03/08/20257) Pain Management Interventions: rest care clustered pillow support provided quiet environment facilitated Intervention: Provide Person-Centered Care Flowsheets (Taken 03/08/20257) Trust Relationship/Rapport: care explained choices provided questions encouraged thoughts/feelings acknowledged Problem: Fall Injury Risk Goal: Absence of Fall and Fall-Related Injury Outcome: Ongoing, Progressing Intervention: Identify and Manage Contributors Flowsheets (Taken 03/08/20257) Self-Care Promotion: independence encouraged BADL personal routines maintained Intervention: Promote Injury-Free Environment Flowsheets (Taken 03/08/20257) Safety Promotion/Fall Prevention: activity supervised assistive device/personal items within reach clutter-free environment maintained fall prevention program maintained nonskid shoes/slippers when out of bed Problem: Acute Kidney Injury/Impairment Goal: Fluid and Electrolyte Balance Outcome: Ongoing, Progressing Intervention: Monitor and Manage Fluid and Electrolyte Balance Flowsheets (Taken 03/08/2025 001) Fluid/Electrolyte Management: electrolyte supplement initiated intravenous fluid replacement initiated Goal: Improved Oral Intake Outcome: Ongoing, Progressing Intervention: Promote and Optimize Oral Intake Flowsheets (Taken 03/08/2025 001) Oral Nutrition Promotion: rest periods promoted Nutrition Interventions: frequent small meals provided Goal: Effective Renal Function Outcome: Ongoing, Progressing Intervention: Monitor and Support Renal Function Flowsheets (Taken 03/08/2025 001) Stabilization Measures: fluid resuscitation initiated Medication Review/Management: medications reviewed * Significant Event - Harish Baer MD - 03/07/2025 5:56 PM EDT Subjective: No acute events overnight Review of Systems: Constitutional: no fevers, no weakness, + weight loss, normal appetite Cardiovascular: no chest pain, + palpitations, + edema Respiratory: + shortness of breath, + cough Gastrointestinal: no nausea, no vomiting, no diarrhea, no constipation, no abdominal pain Musculoskeletal: no back pain, no shoulder pain, no hip pain, no knee pain All other review of systems are negative. Active Medications: Current Scheduled Medications[1] Current Continuous Medications[2] Current PRN Medications[3] Objective: Visit Vitals BP (!) 173/91 (BP Location: Right arm, Patient Position: Lying) Pulse 93 Temp 37.1 ??C (98.8 ??F) (Oral) Resp 19 Wt 92.6 kg (204 lb 2.3 oz) SpO2 97% Smoking Status Former Physical Exam: General: AOx3, no acute distress, well-nourished Cardiovascular: regular s1/s2, no murmurs, no JVD, no lower extremity edema Pulmonary: clear, no crackles, no wheezes, non-labored Abdom: normal bowel sounds, soft, non-tender, non-distended Muskuloskeletal: full RoM in BUE, full RoM in Knees, full RoM in Hips Dermatologic: no rashes, no lesions, no ulcers Labs: Lab Results Component Value Date NA 140 03/07/2025 K 4.3 03/07/2025 CL 111 (H) 03/07/2025 CO2 16 (L) 03/07/2025 BUN 37 (H) 03/07/2025 CREATININE 3.38 (H) 03/07/2025 ALT 11 03/06/2025 AST 21 03/06/2025 Lab Results Component Value Date WBC 4.53 03/07/2025 HGB 9.5 (L) 03/07/2025 PLT 158 03/07/2025 MCV 91 03/07/2025 ASSESSMENT/PLAN: Owen Salazar: 84yo male PMHx HFpEF, DVT/PE on xarelto, HTN, T2DM, and CKD transferred from OSH to ER for worsening SALVADOR x 2 months #) Acute Kidney Injury Recent Creatinine trend: 3.63->3.38 Baseline Creatinine is Unknown Urinalysis is not consistent with infection On examination, the abdomen is soft and not tense, which goes against abdominal hypertension His labs look like volume overload, with no alkalosis, BNP 2403, and history on HF. On exam, he looks euvolemic or dry, with no JVD, clear lungs, no edema (now, he says recent) and heis thirsty. He denies orthopnea and says he has had a 15pound wt loss recently which he attributes to Ozempic but depending on the time frame may also be hypovolemia. I suspect that he was previously hypervolemic, then dried out with diuresis and now is a bit dry. This may not be new - he says his insulin requirements decreased which may be due to better diet orelse reduced renal clearance of Insulin. Will try a 1-time volume challenge (150mEq bicarb for 1L total) and reassess. /Plan: - Check urine Cr, Urea, Na, Protein - Renal Ultrasound to estimate degree of CKD with renal atrophy and degree of cortical thickening, also to rule hydronephrosis (which may be asymptomatic) - Continuous IV fluids, D5W with 150mEq Bicarb at 125mL/hr x8hrs - Hold Diuretics - Hold Lisinopril #) Possible Nephrotic Proteinuria Urine Random Protein-Creatinine ratio = 10.3 suggesting almost 10g proteinuria The differential includes: Diabetes (likely), and less likely Myeloma or Malignancy-related Membranous, or others. He did have recurrent PE and a serum Albumin of 2.0, so this could be Nephrotic syndrome. Will confirm it first before a big workup /Plan: - Check 24hr Urine Protein and Albumin #) Metabolic Acidosis The serum Bicarbonate is 16 The anion gap is 13 The serum pH on an ABG is 7.39 This is a primary acidosis, since compensation will only partially restore the pH to 7.35-7.45 Serum lactate is normal, PaCO2 is normal /Plan: - Check random urine sodium, chloride, potassium to compute urine anion gap - IV D5W with 150mEq/L Bicarb at 125 mL/hr x8hrs #) Sinus Tachycardia EKG shows sinus with PVC's and he says he has palpitations with exertion. No overt signs of HF, no wheezes on exam. This may be arrhythmia rather than a volume issue. 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 - continue Xarelto #) Anemia suspect of chronic disease -iron studies, ferritin, Vitamin B12, folate #) Diabetes, Uncontrolled A1c=9.3 /Plan: - Insulin Glargine 5 units QHS Sliding scale Insulin #) HLD: continue statin and fenofibrate #) GERD: continue PPI #) Debility: cane/walker at baseline; fall precautions #) Hypomagnesemia - Monitor and replace #) Fluids/Nutrition - Regular Renal diet #) Prophylaxis - Rivaroxaban as above #) Code Status FULL CODE Harish Baer MD PhD Division of Hospital Medicine [phone] [1] atorvastatin, 10 mg, Oral, Nightly carvedilol, 25 mg, Oral, BID fenofibrate, 145 mg, Oral, Daily insulin lispro, 0-5 Units, Subcutaneous, TID with meals insulin lispro, 0-3 Units, Subcutaneous, Twice at night pantoprazole, 40 mg, Oral, Daily rivaroxaban, 15 mg, Oral, Daily with dinner sodium chloride, 10 mL, Intravenous, q12h [2] sodium bicarbonate 150 mEq in dextrose 5 % 1,000 mL infusion, 125 mL/hr, Last Rate: 125 mL/hr (03/07/25 1730) [3] PRN medications: acetaminophen, glucose OR dextrose 10 % OR dextrose 10 % OR glucagon (human recombinant), ipratropium-albuterol, melatonin, polyethylene glycol, Insert peripheral IV AND Saline lock IV AND sodium chloride AND sodium chloride * Progress Notes - Giovanni Page RN - 03/07/2025 8:18 AM EDT Owen Salazar Chief Complaint Patient presents with Shortness of Breath Geriatric Screening Geriatric MNA alert for a pt response on the questionnaire. Patient is pending clinical course for treatment but has been accepted for admission for ROSA and SVT. TRST-1 EASI-0 Mini Nutritional Assessment/Screening (Adults 65 and Older) A. Has food intake declined over the past 3 months due to loss of appetite, digestive problems, chewing or swallowing difficulties?: No decrease in food intake B. Weight loss during the last 3 months: No weight loss C. Mobility: Goes out D. Has suffered psychological stress or acute disease in the past 3 months?: No E. Neuropsychological problems: No psychological problems R Calf Circumference (cm): 1 cm L Calf Circumference (cm): 1 cm F2. Calf Circumference (CC) in cm: 0 Mini Nutritional Screening Score : 11 Assessment to be deferred to primary team for CM needs. Case management will continue to follow as needed and able to offer additional resources at request. Meredith Page ED-applications programmer analyst * Progress Notes - Lulu Jon - 03/07/2025 7:50 AM EDT Case Management Adult Initial Progress Note Owen Salazar 84 y.o. male CSN: [id number] Admission: 03/06/2025 7:34 PM Primary Problem: Acute kidney injury superimposed on CKD Liner Inserter reviewed chart and spoke with patient to complete this Initial Case Management Assessment. Patient verified information. Patient phone number is [phone]. PCP: Giovanni Glass MD- [place], [place] Emergency Contact: Extended Emergency Contact Information Primary Emergency Contact: MICH Salazar Mobile Relation: Son Preferred language: Bulgarian Surg Tech needed? No Insurance: Primary Visit Coverage Payer Plan Sponsor Code Group Number Group Name HUMANA MEDICARE HUMANA MEDICARE [id number] Primary Visit Coverage Subscriber Subscriber ID Subscriber Name Subscriber SSN Subscriber Address [id number] Owen Salazar [id number] [place] [address] Patient information: Primary Caregiver: Self Support System: Immediate family Daily Living Activities: Functional Status: Minimum assistance Living Arrangements: Spouse/Significant other Type of Residence: Private residence (2 steps to enter home, 1 step in house) [address] [place] [address] Current DME: Equipment Currently Used at Home: cane, straight Income Information: Income Source: Retired Income/Expense Information: Income meets expenses Current Resources Utilized: None Housing Circumstances-Z Codes: Housing Circumstances (select all that apply): None Applicable Patient Referred to: N/A Anticipated Discharge Date: TBD Patient's Discharge Goal: Return home Assistance Available at Discharge: Beulah Salazar-Spouse available 30/12 Discharge Transport: Son Follow Up Transport: Self Home Health / Home Infusion / Outpatient Dialysis Services: Denies Living Will/Advance Directive/Power of Reiki Practitioner /Guardian: Have you reviewed your Advance Directive and is it valid for this stay?: Not applicable Pre-existing DNR/DNI Order: No Denies LW or POA. Additional Comments: CM met with patient at bedside. Went over role of connie cleaner, completed initial CM assessment, and will continue to follow and assist with any discharge needs as they arise. Lulu Jon * Consults - Dylan Victor DO - 03/07/2025 5:26 AM EDTAssociated Order(s): Consult to Cardiology Images from the original note were not included. CARDIOLOGY NEW CONSULT NOTE Consult to Cardiology Consult performed by: Dylan Victor DO Consult ordered by: Ariella Chapman MD Reason for consult: SVT and HX of HF SUBJECTIVE History Of Present Illness Owen Salazar is a 84 y.o. male with a past medical history significant for CHF (unknown LVEF), CKD (unknown baseline), remote history of a pulmonary embolism, insulin dependent DM, HTN, who per documentation was transferred to for worsening renal failure. Cardiology is being consulted at the request of ELGIN KEY MD for history of heart failure and SVT. Mr. Salazar is resting in bed comfortably with no family at bedside. He mentions until 2 months ago he felt well. He followed with a primary care provider and grey iron molder but had not previously been diagnosed with cardiac disease or renal dysfunction. He began having significant dyspnea with exertion and lower extremity weakness. He was evaluated at [facility] and diagnosed with what hedescribes as fluid around his heart and kidney failure. He mentions they prescribed multiple medications to help with this fluid that increased his urinary output and improved his symptoms. He mentions they have been making frequent medication changes based on his kidney function. He has been adherent to his medication regimen and following with his automotive parts person and rack carrier regularly. Of note his rack carrier is in [facility] and his automotive parts person, grey iron molder, and primary care physicianare located in [place]. He currently feels well with improvement in his dyspnea and leg weakness. Denies chest pain, lightheadedness. Review of Systems 14 point ROS reviewed and is otherwise negative except that which is mentioned in the HPI. Past Medical History Past Medical History[1] Surgical History Surgical History[2] Family History Reviewed, paternal multiple family members with heart attacks in their 80's. Social History Tobacco use: 50 year 1PPD, quit 20 years ago Alcohol use: Denies any significant recent usage. Other: Denies any illicit drug use. Allergies Patient has no known allergies. Home Medications No current outpatient medications OBJECTIVE Physical Exam Visit Vitals BP 127/61 Pulse 91 Temp 37.1 ??C (98.7 ??F) (Oral) Resp 19 Wt 90.5 kg (199 lb 8.3 oz) SpO2 95% Smoking Status Former Physical Exam Blood pressure 127/61, pulse 91, temperature 37.1 ??C (98.7 ??F), temperature source Oral, resp. rate 19, weight 92.6 kg (204 lb 2.3 oz), SpO2 95%. GENERAL: Awake, alert, NAD HEENT: NCAT NECK: JVD to the mid neck CARDIAC: Regular rate, regular rhythm, normal S1/S2, no m/r/g, 2+ radial pulses bilaterally PULM: CTAB without increased work of breathing on room air ABD: Soft, NT, ND EXT: Warm and well perfused, no LE edema SKIN: No rashes or lesions NEURO: A&Ox4, moving all extremities spontaneously Primary Study Review: I personally reviewed the images/tracings of the following studies: ECG and chest x-ray Lab Review Results from last 7 days Lab Units 03/07/2544203/06/251956 SODIUM mmol/L 140 138 POTASSIUM mmol/L 4.3 4.7 CHLORIDE mmol/L 111* 108* CO2 mmol/L 16* 15* BUN mg/dL 37* 38* CREATININE mg/dL 3.38* 3.62* CALCIUM mg/dL 7.6* 8.1* BILIRUBIN TOTAL mg/dL -- 0.3 ALKALINE PHOSPHATASE U/L -- 124* ALT U/L -- 11 AST U/L -- 21 GLUCOSE mg/dL 170* 180* Lab Results Component Value Date GLUCOSE 170 (H) 03/07/2025 CALCIUM 7.6 (L) 03/07/2025 NA 140 03/07/2025 K 4.3 03/07/2025 CO2 16 (L) 03/07/2025 CL 111 (H) 03/07/2025 BUN 37 (H) 03/07/2025 CREATININE 3.38 (H) 03/07/2025 Results from last 7 days Lab Units 03/07/25442 WBC 10*3/uL 4.53 HEMOGLOBIN g/dL 9.5* HEMATOCRIT % 28.5* PLATELETS 10*3/uL 158 No lab exists for component: NTPROBNP Results from last 7 days Lab Units 03/06/251956 NT PROBNP pg/mL 2,403* ECG: Reviewed Previous Echo: No echocardiogram results found for the past 12 months Imaging === 03/06/25 === XR CHEST 1 VIEW - Narrative - CLINICAL INDICATION: chest pain TECHNIQUE: XR CHEST 1 VIEW COMPARISON: None. FINDINGS: No acute focal airspace consolidation. No pneumothorax. Skinfold left inferior lateral hemithorax. No significant cardiomegaly. Mild prominence/thickening of the superior right paratracheal stripe, nonspecific. If clinical concern for mass or additional abnormality consider follow-up CT. No acute osseous abnormality. - Impression - No acute focal airspace consolidation. Mild prominence/thickening of the superior right paratracheal stripe, nonspecific. If clinical concern for mass or additional abnormality consider follow-up CT. CRITICAL RESULT: No. COMMUNICATION: Per this written report. Drafted by Brennan Palacios MD on 03/06/2025 8:51 PM Final report signed by Brennan Palacios MD on 03/06/2025 8:53 PM ASSESSMENT/PLAN Owen Salazar is a 84 y.o. male who initially presented to the [facility] for acute on chronic renal failure, and Cardiology is being consulted for recommendations and management ofSVT and HF. 1) SVT - resolved 2) CHF (unclear LVEF), NYHA III, ACC/AHA C 3) CKD, unclear baseline Mr. Salazar notes a recent diagnosis of HF and symptoms that have improved since initiation of GDMT and diuretics. He follows with a rack carrier in [facility] who has been titrating and altering his medications based on fluctuating renal function. Per chart review he was sent to for further evaluation of his worsening renal failure and while in the ED had an episode of SVT that resolved with vagal maneuvers and correction of his electrolyte abnormalities. He has had no recurrence since but with frequent episodes of what appears to be PVC's. We unfortunately do not have his outside records and he is unclear of what medications he is taking (av jessa agents etc). Will need to obtain outside r ecords to determine current GDMT and what has been discontinued. Recommendations: -Obtain outside records, restart home GDMT and diuretics as able -Replete abnormal electrolytes -Echocardiogram pending -Monitor for recurrence of his SVT The following cardiovascular risk factors and co-morbidities complicates the management of these conditions: Chronic Kidney Disease (CKD) - with a last eGFR of: 17.3mL/min/1.73 sq meters Principal Problem: Acute kidney injury superimposed on CKD (CMS/HCC) Active Problems: CHF (congestive heart failure) (CMS/HCC) Debility Metabolic acidosis Former cigarette smoker Hx pulmonary embolism Mixed hyperlipidemia Primary hypertension 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 Normocytic anemia Hypomagnesemia . This consult will be staffed with the following attending physician: Dr Valderrama. Please consider these recommendations preliminary until the note has been cosigned by the attending physician. Please page the on-call stone polisher ([phone]) with any further questions. I spent 30 minutes performing the following components of the encounter (on the day of the encounter): reviewing history, examining the patient, and entering clinical information in the EHR. Cardiology will sign off, please reach out as needed Fransisco Victor DO Department of Cardiovascular Disease Fellow, PGY-4 [1] Past Medical History: Diagnosis Date CHF (congestive heart failure) (CMS/HCC) CKD (chronic kidney disease) Former cigarette smoker 03/07/2025 50 pack yr smoker, quit in 2006 GERD (gastroesophageal reflux disease) Hx pulmonary embolism Hyperlipidemia Hypertension 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 X 3 Type 2 diabetes mellitus [2] Past Surgical History: Procedure Laterality Date NO PAST SURGERIES Cosigned by Fermin Valderrama MD at 03/07/2025 12:40 PM EDT Associated attestation - Fermin Valderrama MD - 03/07/2025 12:40 PM EDT I saw and evaluated the patient with the fellow. I agree with the findings and plan as documented with the following addition. 84 yo M with history of reported CHF, CKD, DVT/PE, HTN, T2DM who presented to the ER after labs revealed worsening renal function. Cardiology was consulted in the ER for episode of SVT. Captured on 12 lead - narrow complex tachycardia with HR 180bpm reported resolved with vagal maneuvers. Suspect paroxysmal atrial tachycardia based on rate, clinical history, and baseline ECG. He is on Xarelto forprior DVT/PE. Plan for beta anita pending assessment of LVEF and confirmation of home medications. Echocardiogram is pending. Please reach out to on-call physician for CAR Consults with any further questions. * H&P - Jason Quezada APRN - 03/07/2025 12:30 AM EDTAssociated Order(s): Consult to Hospital Medicine Images from the original note were not included. Consult to Hospital Medicine Consult performed by: Jason Quezada APRN Consult ordered by: Ariella Chapman MD Reason for consult: ROSA on CKD, SVT Subjective Chief complaint Shortness of air History Of Present Illness Owen Salazar is a 84 y.o. male with past history of CHF (unknown EF), DVT/PE on xarelto, HTN, HLD, T2DM, and CKD transferred from OSH to ER for worsening SALVADOR x 2 months. Patient endorses ongoing dizziness with changing to standing position, but yesterday had near syncopal episode. Ongoing shortness of air with exertion, relieved with rest. On daily diuretic, denies retaining fluid, chest pain, orthopnea, PND. Former 50 pack yr smoker. Not on O2 at home. Patient reports several months ago informed one kidney completely shut down and the other barely working . Unknown baseline Cr, still produces urine. Denies nausea/vomiting, abdominal pain, diarrhea, dysuria,hematuria, headache, confusion. Course in ER: hypoxic on ER arrival to 80's, improving on NRB and weaned to RA. Afebrile, no leukocytosis, Cr 3.62. Troponin HS delta 6. EKG no ischemic changes. CXR unremarkable. ER reported runs ofSVT 150's that responded to vagal maneuvers. ER spoke with Cardiology whom recommended replacing magnesium IV. at [place] consulted to admit. Medical/Surgical/Social/Family History Past Medical History[1] Surgical History[2] Social History[3] Family History[4] , now remarried. Lives with current in [place], [place]. Ambulates with walker/cane at baseline. Travel History Relevant International Travel History: Travel Screening Question Response Have you been in contact with someone who was sick? No / Unsure Do you have any of the following new or worsening symptoms? None of these Have you traveled internationally or domestically in the last month? No Travel History Travel since 02/04/25 No documented travel since 02/04/25 Relevant Domestic Travel History: None Immunizations VACCINE / DOSE DATE DATE DATE DATE DATE DATE Flu 03/17/2013 03/27/2017 03/14/2020 03/21/2021 03/06/2022 03/13/2023 Tetanus 05/19/2024 Pneumovax Shingles 05/23/2009 Allergies Patient has no known allergies. Outpatient medications in system Home Medications[5] Medications ordered for hospitalization Current Scheduled Medications[6] Current Continuous Medications[7] Current PRN Medications[8] Objective Review of Systems Constitutional: Positive for activity change. Negative for chills, diaphoresis, fatigue and fever. HENT: Negative. Eyes: Negative. Respiratory: Positive for shortness of breath. Negative for apnea, cough, choking, wheezing and stridor. Cardiovascular: Negative for chest pain, palpitations and leg swelling. Gastrointestinal: Negative for abdominal distention, abdominal pain, blood in stool, constipation, diarrhea, nausea and vomiting. Endocrine: Negative. Genitourinary: Positive for enuresis and urgency. Negative for decreased urine volume, dysuria, flank pain, frequency, hematuria and penile discharge. Musculoskeletal: Negative. Skin: Negative. Allergic/Immunologic: Negative. Neurological: Positive for dizziness, syncope and light-headedness. Negative for facial asymmetry, weakness, numbness and headaches. Hematological: Negative. Psychiatric/Behavioral: Negative. Physical Exam Last Recorded Vitals Blood pressure (!) 145/79, pulse 91, temperature 37.2 ??C (98.9 ??F), temperature source Oral, resp. rate 19, weight 90.5 kg (199 lb 8.3 oz), SpO2 92%. Results Review I have reviewed the latest lab and imaging results. Assessment & Plan ROSA on CKD Metabolic acidosis -BUN/Cr 38/3.62--> baseline Cr unknown -CO2 15, anion gap 15, VpH 7.31 PLAN -UA, urine studies -500 ml LR bolus -sodium bicarbonate 1300 mg PO x 1 -hold furosemide, ?losartan/hydrochlorothiazide -avoid NSAIDS/nephrotoxins, renally dose meds based on EGFR -strict I/O, trend Cr Runs of SVT Chronic CHF Essential HTN -EF unknown -Troponin HS flat -NTproBNP added -TSH nl, magnesium 1.8 -EKG no ischemic changes PLAN -telemetry, orthostatic VS in AM -keep magnesium >2, potassium >4 -ECHO ordered -ER spoke with Cardiology, follow-up recs Dyspnea on exertion Former 50 pack yr smoker -worsening over the past 2 months -OSH CXR and D-Dimer normal -hypoxic on arrival to -afebrile, no leukocytosis -repeat CXR no acute findings PLAN -supplemental O2 to keep sat >88% -DuoNeb q6h PRN -consider CT Chest WO -outpatient PFT's Hypomagnesemia -replacing per protocol Anemia suspect of chronic disease -iron studies, ferritin, Vitamin B12, folate ---CHRONIC/STABLE CONDITIONS--- Hx of DVT/PE on Xarelto: recurrent RLE DVT x 3 attributed to extended travel; continue Xarelto T2DM, on long-term insulin: A1C added; hold home glipizide and ozempic; continue glargine 5 Units daily with regular SSI Mixed HLD: continue statin and fenofibrate GERD: continue PPI Debility: cane/walker at baseline; fall precautions Venous thromboembolism prophylaxis: Patient on Xarelto. Diet Dietary Orders (From admission, onward) Start Ordered 03/07/25108 Adult diet Diet texture: Regular; Carbohydrate restriction: Consistent Carb 2 (80 gm max/meal); Sodium restriction: 2,000 mg Na; Electrolyte Restriction: Renal Diet effective now References: IDDSI Diet Texture Guide Question Answer Comment Diet texture Regular Carbohydrate restriction: Consistent Carb 2 (80 gm max/meal) Sodium restriction: 2,000 mg Na Electrolyte Restriction: Renal 03/07/25 0119 Code Status Full Code [1] Past Medical History: Diagnosis Date CHF (congestive heart failure) (CMS/HCC) CKD (chronic kidney disease) Former cigarette smoker 03/07/2025 50 pack yr smoker, quit in 2006 GERD (gastroesophageal reflux disease) Hx pulmonary embolism Hyperlipidemia Hypertension 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 X 3 Type 2 diabetes mellitus [2] Past Surgical History: Procedure Laterality Date NO PAST SURGERIES [3] Social History Tobacco Use Smoking status: Former Current packs/day: 0.00 Average packs/day: 1 pack/day for 50.0 years (50.0 ttl pk-yrs) Types: Cigarettes Start date: 1956 Quit date: 2006 Years since quittin.7 Passive exposure: Past Smokeless tobacco: Never Vaping Use Vaping status: Never Used Substance Use Topics Alcohol use: Never Drug use: Never [4] Family History Problem Relation Name Age of Onset No Known Problems Son [5] (Not in a hospital admission) [6] atorvastatin, 10 mg, Oral, Nightly fenofibrate, 145 mg, Oral, Daily insulin lispro, 0-5 Units, Subcutaneous, TID with meals insulin lispro, 0-3 Units, Subcutaneous, Twice at night lactated Ringer's, 250 mL, Intravenous, Once pantoprazole, 40 mg, Oral, Daily rivaroxaban, 15 mg, Oral, Daily with dinner sodium chloride, 10 mL, Intravenous, q12h [7] [8] PRN medications: acetaminophen, glucose OR dextrose 10 % OR dextrose 10 % OR glucagon (human recombinant), ipratropium-albuterol, melatonin, polyethylene glycol, Insert peripheral IV AND Saline lock IV AND sodium chloride AND sodium chloride * ED Procedure Note - Nabor Tam MD - 03/06/2025 7:17 PM EDTAssociated Order(s): Critical Care Procedure Reason: SVT Critical Care Performed by: Nabor Tam MD Authorized by: Ariella Chapman MD Critical care provider statement: Critical care time (minutes): 31 Critical care time was exclusive of: Separately billable procedures and treating other patients andteaching time Critical care was time spent personally by me on the following activities: Development of treatmentplan with patient or surrogate, discussions with consultants, evaluation of patient's response to treatment, examination of patient, obtaining history from patient or surrogate, ordering and performing treatments and interventions, ordering and review of laboratory studies, ordering and review of radiographic studies and review of old charts I assumed subsequent critical care for this patient from a provider in my division, on the same day: no Critical care statement: I saw and evaluated the patient with the resident/ fellow. I discussed thecase with the resident/ fellow and agree with the findings and plan as documented. 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 The patient has been seen at an outside hospital earlier this morning for a 2 month period of dyspnea on exertion. At the outside hospital he had a D-dimer that was negative, troponins that were negative, aBNP that was elevated greater than 2000, and a creatinine that was elevated above 3. They had initially planned to admit the patient to their hospital for further evaluation and monitoring but their h ospital did not have dialysis capabilities and because he had this significant elevation of creatinine they declined to accept the patient for admission and recommended transfer. While the patient was awaiting transfer to our hospital his family decided to bring him here by privately-owned vehicle.He arrived acutely dyspneic profoundly tachycardic with a heart rate greater than 180. He was not experiencing chest pain at that time. Patient History Past Medical History[1] Surgical History[2] Family History[3] Social History[4] Allergies: Allergies[5] Physical Exam ED Triage Vitals Temp Heart Rate Resp BP 03/06/25192803/06/25192803/06/25192803/06/251928 37.6 ??C (99.7 ??F) (!) 160 (!) 28 106/70 SpO2 Temp Source Heart Rate Source Patient Position 03/06/25192803/06/25192803/06/25212903/06/251928 96 % Oral Monitor Sitting BP Location FiO2 (%) 03/06/251928 -- Right arm Physical Exam See MDM EASI ?? Total Score: 0 Froy Coma Scale Score: 15 Mini Nutritional Screening Score : 11 TRST Assessment Total: 1 ED Course & MDM - Assessment: In summary, this is an 84-year-old male patient who is presenting to the emergency department with active supraventricular tachycardia and dyspnea in the setting of a 2 month history of dyspnea on exertion. 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 This certainly increases the patient's risk for morbidity. On initial evaluation of the patient he appeared to be in acute distress and had a heart rate greater than 180 beats per minute. He was saturating well on non- rebreather but did have increased work of breathing. 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 There was no evidence of obvious STEMI. We immediately connected the patient to the life pack and began working on intravenous access. We were unable to gain adequate intravenous access so I did have to perform an ultrasound-guided IV. After sticking the patient with a needle he had a vasovagal episode and spontaneously converted from sup raventricular tachycardia to normal sinus rhythm. Differential Diagnosis: ACS/mi, electrolyte derangement, acute kidney injury, heart failure, among others. In order to fully explore the differential diagnosis the following treatments and tests were ordered: ED Medication Administration from 03/06/2025 1917 to 03/07/2025 0119 Date/Time Order Dose Route Action 03/06/2025 2255 EDT magnesium sulfate IVPB 2 g 2 g Intravenous New Bag 03/06/2025 2355 EDT magnesium sulfate IVPB 2 g 0 g Intravenous Stopped All Other Orders Ordered Status Ordering Provider 03/07/25 0119 Orthostatic Vital Signs Once Comments: Please do laying and standing within one minute of standing patient. Acknowledged JASON QUEZADA 03/07/25 0119 Up in chair 3 times daily Acknowledged JASON QUEZADA 03/07/25 011 POCT Glucose - Before Meals and Bedtime 4 times daily before meals and at bedtime Order ID Start Status Ordering Provider [id number] 03/07/25 0700 Acknowledged JASON QUEZADA [id number] 03/07/25 1100 Acknowledged JASON QUEZADA [id number] 03/07/25 1700 Acknowledged GABRIELLE, GITANA B [id number] 03/07/25 2200 Acknowledged GABRIELLE, GITANA B [id number] 03/08/25 0700 Acknowledged GABRIELLE, GITANA B [id number] 03/08/25 1100 Acknowledged GABRIELLE, GITANA B [id number] 03/08/25 1700 Acknowledged GABRIELLE, GITANA B 03/08/25 2200 Scheduled GABRIELLE, GITANA B 03/09/25 0700 Scheduled GABRIELLE, GITANA B 03/09/25 1100 Scheduled GABRIELLE, GITANA B 03/09/25 1700 Scheduled GABRIELLE, GITANA B 03/09/25 2200 Scheduled GABRIELLE, GITANA B 03/10/25 0700 Scheduled GABRIELLE, GITANA B 03/10/25 1100 Scheduled GABRIELLE, GITANA B 03/10/25 1700 Scheduled GABRIELLE, GITANA B 03/10/25 2200 Scheduled GABRIELLE, GITANA B 03/11/25 0700 Scheduled GABRIELLE, GITANA B 03/11/25 1100 Scheduled GABRIELLE, GITANA B 03/11/25 1700 Scheduled GABRIELLE, GITANA B 03/11/25 2200 Scheduled GABRIELLE, GITANA B 03/12/25 0700 Scheduled GABRIELLE, GITANA B 03/12/25 1100 Scheduled GABRIELLE, GITANA B 03/12/25 1700 Scheduled GABRIELLE, GITANA B 03/12/25 2200 Scheduled GABRIELLE, GITANA B 03/13/25 0700 Scheduled GABRIELLE, GITANA B 03/13/25 1100 Scheduled GABRIELLE, GITANA B 03/13/25 1700 Scheduled GABRIELLE, GITANA B 03/13/25 2200 Scheduled GABRIELLE, GITANA B 03/14/25 0700 Scheduled GABRIELLE, GITANA B 03/14/25 1100 Scheduled GABRIELLE, GITANA B 03/14/25 1700 Scheduled GABRIELLE, GITANA B 03/14/25 2200 Scheduled GABRIELLE, GITANA B 03/15/25 0700 Scheduled GABRIELLE, GITANA B 03/15/25 1100 Scheduled GABRIELLE, GITANA B 03/15/25 1700 Scheduled GABRIELLE, GITANA B 03/15/25 2200 Scheduled GABRIELLE, GITANA B Acknowledged GABRIELLE, GITANA B 03/07/25 0119 Intake and output Every 6 hours Acknowledged GABRIELLE, GITANA B 03/07/25 0119 POCT Glucose (if patient NPO, on TPN or continuous nutrition) Every 6 hours Comments: If patient NPO or receiving continuous nutrition (tube feeds or TPN) check POC BG every 6hours. Order ID Start Status Ordering Provider [id number] 03/07/25 0600 Acknowledged GABRIELLE, GITANA B [id number] 03/07/25 1200 Acknowledged GABRIELLE, GITANA B [id number] 03/07/25 1800 Acknowledged GABRIELLE, GITANA B [id number] 03/08/25 0000 Acknowledged GABRIELLE, GITANA B [id number] 03/08/25 0600 Acknowledged GABRIELLE, GITANA B [id number] 03/08/25 1200 Acknowledged GABRIELLE, GITANA B [id number] 03/08/25 1800 Acknowledged GABRIELLE, GITANA B 03/09/25 0000 Scheduled GABRIELLE, GITANA B 03/09/25 0600 Scheduled GABRIELLE, GITANA B 03/09/25 1200 Scheduled GABRIELLE, GITANA B 03/09/25 1800 Scheduled GABRIELLE, GITANA B 03/10/25 0000 Scheduled GABRIELLE, GITANA B 03/10/25 0600 Scheduled GABRIELLE, GITANA B 03/10/25 1200 Scheduled GABRIELLE, GITANA B 03/10/25 1800 Scheduled GABRIELLE, GITANA B 03/11/25 0000 Scheduled GABRIELLE, GITANA B 03/11/25 0600 Scheduled GABRIELLE, GITANA B 03/11/25 1200 Scheduled GABRIELLE, GITANA B 03/11/25 1800 Scheduled GABRIELLE, GITANA B 03/12/25 0000 Scheduled GABRIELLE, GITANA B 03/12/25 0600 Scheduled GABRIELLE, GITANA B 03/12/25 1200 Scheduled GABRIELLE, GITANA B 03/12/25 1800 Scheduled GABRIELLE, GITANA B 03/13/25 0000 Scheduled GABRIELLE, GITANA B 03/13/25 0600 Scheduled GABRIELLE, GITANA B 03/13/25 1200 Scheduled GABRIELLE, GITANA B 03/13/25 1800 Scheduled GABRIELLE, GITANA B 03/14/25 0000 Scheduled GABRIELLE, GITANA B 03/14/25 0600 Scheduled GABRIELLE, GITANA B 03/14/25 1200 Scheduled GABRIELLE, GITANA B 03/14/25 1800 Scheduled GABRIELLE, GITANA B 03/15/25 0000 Scheduled GABRIELLE, GITANA B 03/15/25 0600 Scheduled GABRIELLE, GITANA B 03/15/25 1200 Scheduled GABRIELLE, GITANA B 03/15/25 1800 Scheduled GABRIELLE, GITANA B Acknowledged GABRIELLE, GITANA B 03/07/25 0119 Vital Signs Every 4 hours Placed in And Linked Group Acknowledged GABRIELLE, GITANA B 03/07/25 011 Pulse Oximetry Every 4 hours Placed in And Linked Group Acknowledged GABRIELLE, GITANA B 03/07/25 011 POCT Glucose - Post Prandial 3 times daily after meals Comments: Check BG 2 hours after each meal. Order ID Start Status Ordering Provider [id number] 03/07/25 0311 Acknowledged GABRIELLE, GITANA B [id number] 03/07/25 0900 Acknowledged GABRIELLE, GITANA B [id number] 03/07/25 1300 Acknowledged GABRIELLE, GITANA B [id number] 03/07/25 1900 Acknowledged GABRIELLE, GITANA B [id number] 03/08/25 0900 Acknowledged GABRIELLE, GITANA B [id number] 03/08/25 1300 Acknowledged GABRIELLE, GITANA B [id number] 03/08/25 1900 Acknowledged GABRIELLE, GITANA B 03/09/25 0900 Scheduled GABRIELLE, GITANA B 03/09/25 1300 Scheduled GABRIELLE, GITANA B 03/09/25 1900 Scheduled GABRIELLE, GITANA B 03/10/25 0900 Scheduled GABRIELLE, GITANA B 03/10/25 1300 Scheduled GABRIELLE, GITANA B 03/10/25 1900 Scheduled GABRIELLE, GITANA B 03/11/25 0900 Scheduled GABRIELLE, GITANA B 03/11/25 1300 Scheduled GABRIELLE, GITANA B 03/11/25 1900 Scheduled GABRIELLE, GITANA B 03/12/25 0900 Scheduled GABRIELLE, GITANA B 03/12/25 1300 Scheduled GABRIELLE, GITANA B 03/12/25 1900 Scheduled GABRIELLE, GITANA B 03/13/25 0900 Scheduled GABRIELLE, GITANA B 03/13/25 1300 Scheduled GABRIELLE, GITANA B 03/13/25 1900 Scheduled GABRIELLE, GITANA B 03/14/25 0900 Scheduled GABRIELLE, GITANA B 03/14/25 1300 Scheduled GABRIELLE, GITANA B 03/14/25 1900 Scheduled GABRIELLE, GITANA B 03/15/25 0900 Scheduled GABRIELLE, GITANA B 03/15/25 1300 Scheduled GABRIELLE, GITANA B 03/15/25 1900 Scheduled GABRIELLE, GITANA B Acknowledged GABRIELLE, GITANA B 03/07/25 0119 Weigh patient Daily Acknowledged GABRIELLE, GITANA B 03/07/25 011 Nurse to complete Until discontinued Comments: -Reorient communication -Record location, date, and time on the whiteboard -Ensure working clock on the wall and in view -Ensure lights are on and window shades/drapes open from 0800 to 1999 -Ensure hearing aids present and available by 0800 (if applicable) -Ensure eyeglasses are present and available by 0800 (if applicable) -Ensure dentures are in by 0800 (if applicable) -Ensure lights and TV are off after 2099 -Offer earplugs if noise interfering with sleep (if available) -Offer fluids q2h between 0800 & 2100 -Assess daily by 1200 if cardiac telemetry can be discontinued -Facilitate family visit or phone call daily -Notify primary team of uncontrolled pain if applicable -Participate in maximum level of mobility as directed by PT/OT -Offer warm beverage (milk or decaffeinated tea) at 2100 Acknowledged JASON QUEZADA 03/07/25118 Do Not Give Nicotine Replacement Until discontinued Acknowledged JASON QUEZADA 03/07/25118 Incentive spirometry Until discontinued Comments: Encourage 10 breathes on Incentive Spirometer every hour while awake. Acknowledged JASON QUEZADA 03/07/25118 Reason for no VTE Prophylaxis - hospital admission - medications Once Completed JASON QUEZADA 03/07/25118 Hold scheduled meal/prandial insulin, if patient NPO or if patient eats less than 50%of meal. Until discontinued Acknowledged JASON QUEZADA 03/07/25118 Do not hold scheduled basal insulin, if applicable, without physician order. Until discontinued Acknowledged JASON QUEZADA 03/07/25118 Notify Provider Until discontinued Acknowledged JASON QUEZADA 03/07/25118 For POC BG 71 - 89 mg/dL Until discontinued Comments: If patient is able to take PO (does not have NPO order) give 15 -20 gm of carbohydrate plus protein snack. Options include: 3 gualberto crackers (15 gm); 2 pkg. saltine crackers (16 gm); 4 oz cup applesauce (17 gm); ?? oz peanut butter,1 container (5 gm); 1 cup regular pudding (21 gm); or 1 cup sugar free pudding (10 gm). Recheck POC BG 30 minutes after administration and follow hypoglycemia prevention protocol. Acknowledged JASON QUEZADA 03/07/25118 For POC BG 51 - 70 mg/dL Until discontinued Comments: If patient is able to take PO (does not have NPO order) give 15gm of fast acting carbohydrates. Options include 4 oz of juice (apple juice preferred in renal patients), 4 oz non-diet soda or 8 oz milk. Recheck POC BG 15 minutes after administration and retreat if necessary until POC BG is> 100. Acknowledged JASON QUEZADA 03/07/25118 For POC BG less than or equal to 50 mg/dL Until discontinued Comments: After patient receives 25gm Dextrose and patient alert and can take PO (does not have NPOorder) give 30gm fast acting carbohydrates. Options include 8 oz of juice (apple juice preferred inrenal patients), 8 oz non-diet soda or 16 oz milk. Recheck POC BG 15 minutes after administration and repeat if necessary until POC BG >100. Acknowledged JASON QUEZADA 03/07/25118 Telemetry Monitoring for Administration of an IV Antiarrhythmic Drug Until discontinued Acknowledged JASON QUEZADA 03/07/25118 Adjust HOB (specify) 30 degrees Once Acknowledged JASON QUEZADA 03/07/25118 Fall precautions Until discontinued Acknowledged JASON QUEZADA 03/07/25118 Nursing oxygen orders - 92% or more Once Comments: Maintain O2 sat between 88-92%; Call MD for hypoxia or an increased O2 requirement Acknowledged JASON QUEZADA 03/07/25118 Nursing oxygen orders - wean Once Comments: Wean oxygen to maintain saturations more than 88% Acknowledged JASON QUEZADA 03/07/25118 Full code Continuous Acknowledged JASON QUEZADA 03/07/25118 Adult diet Diet texture: Regular; Carbohydrate restriction: Consistent Carb 2 (80 gm max/meal); Sodium restriction: 2,000 mg Na; Electrolyte Restriction: Renal Diet effective now Acknowledged JASON QUEZADA 03/07/25118 Admit to inpatient Once Completed JASON QUEZADA 03/07/25118 Mobility Orders Until discontinued Acknowledged JASON QUEZADA 03/07/25118 Notify physician (specify parameters) Until discontinued Acknowledged JASON QUEZADA 03/07/25118 Insert peripheral IV Once Placed in And Linked Group Acknowledged JASON QUEZADA 03/07/25118 Saline lock IV Once Placed in And Linked Group Acknowledged JASON QUEZADA 03/07/25 0001 Drug Abuse Screen, Urine STAT Final result AJSON QUEZADA 03/07/25 0001 Urinalysis with reflex microscopic (Culture NOT Included) STAT Final result JASON QUEZADA 03/07/25 0001 Sodium, Random, Urine STAT Final result JASON QUEZADA 03/07/25 0001 STAT Canceled JASON QUEZADA 03/07/25 0001 Protein, Random, Urine with Creatinine STAT Final result JASON QUEZADA 03/07/25 0001 Urea Nitrogen, Random Urine STAT Final result JASON QUEZADA 03/07/25 0001 Hemoglobin A1c Once Final result JASON QUEZADA 03/07/25 0000 Phosphorus, Plasma Once Final result JASON QUEZADA 03/06/25 2347 Continuous Comments: Added via Instant Order OPA Canceled BPA, INSTANT ORDERS 03/06/25 234 Continuous Comments: Added via Instant Order OPA Canceled BPA, INSTANT ORDERS 03/06/25 2347 Continuous Comments: Added via Instant Order OPA Canceled BPA, INSTANT ORDERS 03/06/25 2347 Continuous Comments: Added via Instant Order OPA Canceled BPA, INSTANT ORDERS 03/06/25 2346 STAT Canceled ARIELLA CHAPMAN 03/06/25 2346 Nasopharyngeal Respiratory Panel Once Final result ARIELLA CHAPMAN 03/06/25 2346 SARS CoV-2/COVID-19 by PCR - Rapid PROCEDURE ONCE Final result ARIELLA CHAPMAN 03/06/25 2337 Consult to Cardiology Once Specialty: Cardiology Provider: (Not yet assigned) Completed TIM CHERRY 03/06/25 233 Consult to Hospital Medicine Once Specialty: Internal Medicine Provider: (Not yet assigned) Completed TIM CHERRY 03/06/252034 Troponin T, High Sensitivity, 2 Hour, Plasma PROCEDURE ONCE Final result NABOR TAM 03/06/251946 Anti Xa Level Unfractionated Heparin STAT Final result NABOR TAM 03/06/252001 Extra Tubes Once Final result NABOR TAM 03/06/252001 Light Green Top PROCEDURE ONCE Final result NABOR TAM 03/06/251947 POCT arterial blood gas gem PROCEDURE ONCE Final result NABOR TAM 03/06/251946 XR Chest 1 View One time imaging Final result NABOR TAM 03/06/251946 CBC w/diff STAT Final result NABOR TAM 03/06/251946 PT-INR STAT Final result NABOR TAM 03/06/251946 CMP STAT Final result NABOR TAM 03/06/251946 Magnesium STAT Final result NABOR TAM 03/06/251946 Lipase STAT Final result NABOR TAM 03/06/251946 Lactic acid, venous STAT Final result NABOR TAM 03/06/251946 Troponin now and 120 min STAT Final result NABOR TAM 03/06/251946 Thyroid Stimulating Hormone, Plasma STAT Final result NABOR TAM 03/06/251946 Free T4, Plasma STAT Final result NABOR TAM 03/06/251946 BNP STAT Final result NABOR TAM 03/06/251942 ECG Adult Once Final result NABOR TAM 03/06/251929 EKG now - STAT (adult) Once Final result NABOR TAM 03/07/25118 POCT Glucose - PRN As needed Comments: Check POC BG at 0300 if patient received correction insulin or was hypoglycemic at bedtime. Acknowledged JASON QUEZADA 03/07/25118 POCT Glucose As needed Comments: Recheck POC BG 15 minutes after any hypoglycemia treatment. Continue until POC BG is greater than 100 mg/dL. Acknowledged JASON QUEZADA After conversion to normal sinus rhythm we did repeat an EKG. This EKG was personally interpreted by me and demonstrated sinus tachycardia at a rate of 107 beats per minute with occasional premature ventricular complexes, left axis, no MI prolongation, narrow QRS, no QTC prolongation. No ST elevation or depression. No overt signs of ischemia Chest x-ray was personally interpreted by me and demonstrates no lobar consolidation or pleural effusion. Official radiology read is in agreement and states that there was no acute abnormality. Labs were personally interpreted by me and demonstrated a creatinine of 3.6, an elevated BUN, and an elevated anion gap. The patient has no obvious leukocytosis or actionable anemia. His VBG showed no evidence of acidosis or hypercapnia. His troponin was initially elevated at 76 and is delta troponin was 70. This is likely demand ischemia from his supraventricular tachycardia. During the patient's stay in the emergency department he developed multiple episodes of supraventricular tachycardia that were nonsustained. I have had an interactive discussion with the Cardiology Service for recommendations regarding his recurrent supraventricular tachycardia. They have recommended repletion of magnesium and do not wantto commit the patient to any vasoactive medications at this time. They have also recommended admission to the hospital medicine service and have stated that if the patient develops supraventricular tachycardia that has refractory to magnesium that they would like to be called again for further recommendations on management. I have had an interactive discussion with the Internal Medicine Service who has agreed to evaluate the patient in the emergency department. After our discussion and their evaluation they have agreed to admit the patient to their service and accept primary responsibility of the patient moving forward. Clinical Impressions as of 03/08/251949 SVT (supraventricular tachycardia) (CMS/[facility]) ROSA (acute kidney injury) ([facility]) Social Determinates of Health Risks (including Economic Stability, Education and level of understanding, Healthcare access and quality and concerning social factors): None identified on this visit Ultimately, this patient was Was admitted (Admission) The primary encounter diagnosis was ROSA (acute kidney injury) (CMS/[facility]). A diagnosis ofSVT (supraventricular tachycardia) (CMS/[facility]) was also pertinent to this visit.. Patient believed torequire admission for the listed diagnoses. The Cardiology service was consulted for admission and was agreeable to admit to Acute Floor (Med/Surg). 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 Type 2 diabetes mellitus [2] Past Surgical History: Procedure Laterality Date NO PAST SURGERIES [3] Family History Problem Relation Name Age of Onset No Known Problems Son [4] Tobacco Use Smoking status: Former Current packs/day: 0.00 Average packs/day: 1 pack/day for 50.0 years (50.0 ttl pk-yrs) Types: Cigarettes Start date: 1956 Quit date: 2006 Years since quittin.7 Passive exposure: Past Smokeless tobacco: Never Vaping Use Vaping status: Never Used Substance Use Topics Alcohol use: Never Drug use: Never [5] No Known Allergies Tim Cherry DO Resident 03/08/251949 Cosigned by Nabor Tam MD at 03/09/2025 11:05 AM EDT Associated attestation - Nabor Tam MD - 03/09/2025 11:05 AM EDT I saw and evaluated the patient with the resident/fellow. I discussed the case with the resident/fellow and agree with the findings and plan as documented. * ED Triage Notes - Chelsea Corbin RN - 03/06/2025 7:17 PM EDT Pt complaining of shortness of breath on exertion that has been going on for about 2 months. This morning pt went to stand up and experienced shortness of breath cause him to almost pass out. When hefelt like passing out he said he was able to sit in chair and denies hitting his head, +BT. Pt Xht707% in lobby, placed on NRB and SpO2 96%. Pt HR elevated. documented in this encounter Plan of Treatment Scheduled Referrals Name Type Priority Associated Diagnoses Order Schedule Ambulatory referral for Follow Up Care Outpatient Referral Routine ROSA (acute kidney injury) ([facility]) 1 Occurrences starting 03/10/2025 until 09/11/2026 Discharge Ambulatory referral to NON [facility] Outpatient Referral Routine ROSA (acute kidney injury) ([facility]) Expected: 03/10/2025 (Approximate), Expires: 09/11/2026 Discharge Ambulatory referral to Cardiology Outpatient Referral Routine SVT (supraventricular tachycardia) ([facility]) 1 Occurrences starting 03/10/2025 until 09/11/2026 documented as of this encounter Procedures Procedure Name Priority Date/Time Associated Diagnosis Comments POCT GLUCOSE METER UNSOLICITED RESULTS Routine 03/10/2025 12:13 PM EDT POCT GLUCOSE METER UNSOLICITED RESULTS Routine 03/10/2025 7:25 AM EDT KAPPA LAMBDA QUANTITATIVE FREE LIGHT CHAINS WITH RATIO Routine 03/10/2025 2:04 AM EDT CYSTATIN C Routine 03/10/2025 2:04 AM EDT KAPPA LAMBDA QUANT FREE LIGHT CHAINS WITH RATIO ORDERABLE Routine 03/10/2025 2:04 AM EDT ACUTE HEPATITIS PANEL Routine 03/10/2025 2:04 AM EDT CBC W/O DIFFERENTIAL Routine 03/10/2025 2:04 AM EDT C-REACTIVE PROTEIN, PLASMA Routine 03/10/2025 2:04 AM EDT PHOSPHORUS, PLASMA Routine 03/10/2025 2: 04 AM EDT MAGNESIUM, PLASMA Routine 03/10/2025 2:0 4 AM EDT COMPREHENSIVE METABOLIC PANEL, PLASMA Routine 03/10/2025 2:04 AM EDT POCT GLUCOSE METER UNSOLICITED RESULTS Routine 03/09/2025 9:00 PM EDT THROMBOSPONDIN TYPE-1 DOMAIN-CONTAINING 7A ANTIBODIES, S Routine 03/09/2025 5:32 PM EDT PHOSPHOLIPASE A2 RECEPTOR, IMMUNOFLUORESCENCE, S Routine 03/09/2025 5:32 PM EDT PRIMARY MEMBRANOUS NEPHROPATHY DIAGNOSTIC CASCADE, S (SO) Routine 03/09/2025 5:32 PM EDT TOTAL PROTEIN, SERUM Routine 03/09/2025 5:32 PM EDT PROTEIN ELECTROPHORESIS, SERUM Routine 03/09/2025 5:32 PM EDT PROTEIN ELECTROPHORESIS, PATHOLOGIST INTERPRETATION Routine 03/09/2025 5:32 PM EDT GLOMERULAR BASEMENT MEMBRANE ANTIBODY, IGG (SO) Routine 03/09/2025 5:32 PM EDT ANTINUCLEAR ANTIBODY (LC) WITH HEP-2 SUBSTRATE, IGG BY IFA (SO) Routine 03/09/2025 5:32 PM EDT PROTEIN ELECTROPHORESIS, SERUM Add-On 03/09/2025 5:32 PM EDT POCT GLUCOSE METER UNSOLICITED RESULTS Routine 03/09/2025 5:[address] ABDOMEN PELVIS WO IV CONTRAST Routine 03/09/2025 4:47 PM EDT POCT GLUCOSE METER UNSOLICITED RESULTS Routine 03/09/2025 1:15 PM EDT POCT GLUCOSE METER UNSOLICITED RESULTS Routine 03/09/2025 7:58 AM EDT POCT GLUCOSE METER UNSOLICITED RESULTS Routine 03/09/2025 3:38 AM EDT SCHISTOCYTE SMEAR Routine 03/09/2025 12: 33 AM EDT CYSTATIN C Routine 03/09/2025 12:33 AM EDT PROSTATE CANCER SCREEN, SERUM Routine 03/09/2025 12:33 AM EDT IRON & TOTAL IRON BINDING CAPACITY, PLASMA (INCLUDES TRANSFERRIN) Routine 03/09/2025 12:33 AM EDT PROTHROMBIN TIME(PT) / INR Routine 03/09/2025 12:33 AM EDT CBC W/O DIFFERENTIAL Routine 03/09/2025 12:33 AM EDT RHEUMATOID FACTOR, PLASMA Add-On 03/09/2025 12:33 AM EDT C3 COMPLEMENT Add-On 03/09/2025 12:33 AM EDT C4 COMPLEMENT Add-On 03/09/2025 12:33 AM EDT C-REACTIVE PROTEIN, PLASMA Routine 03/09/2025 12:33 AM EDT PHOSPHORUS, PLASMA Routine 03/09/2025 12 :33 AM EDT PTH INTACT TOTAL Routine 03/09/2025 12:3 3 AM EDT MAGNESIUM, PLASMA Routine 03/09/2025 12: 33 AM EDT FOLATE, SERUM Routine 03/09/2025 12:33 AM EDT VITAMIN B12, SERUM Routine 03/09/2025 12 :33 AM EDT COMPREHENSIVE METABOLIC PANEL, PLASMA Routine 03/09/2025 12:33 AM EDT ALBUMIN-CREATININE RATIO, 24 HR URINE Routine 03/08/2025 10:07 PM EDT CREATININE, 24 HOUR URINE Routine 03/08/2025 10:07 PM EDT PROTEIN, URINE, 24 HOUR Routine 03/08/20 25 10:07 PM EDT POCT GLUCOSE METER UNSOLICITED RESULTS Routine 03/08/2025 8:15 PM EDT POCT GLUCOSE METER UNSOLICITED RESULTS Routine 03/08/2025 5:13 PM EDT POCT GLUCOSE METER UNSOLICITED RESULTS Routine 03/08/2025 12:22 PM EDT HC BREATHING CAPACITY TEST Routine 03/08/2025 10:01 AM EDT ROSA (acute kidney injury) POCT GLUCOSE METER UNSOLICITED RESULTS Routine 03/08/2025 7:48 AM EDT D DIMER, QUANTITATIVE Routine 03/08/2025 6:15 AM EDT CYSTATIN C Routine 03/08/2025 6:15 AM EDT CBC W/O DIFFERENTIAL Routine 03/08/2025 6:15 AM EDT C-REACTIVE PROTEIN, PLASMA Routine 03/08/2025 6:15 AM EDT PHOSPHORUS, PLASMA Routine 03/08/2025 6: 15 AM EDT MAGNESIUM, PLASMA Routine 03/08/2025 6:1 5 AM EDT COMPREHENSIVE METABOLIC PANEL, PLASMA Routine 03/08/2025 6:15 AM EDT UREA NITROGEN, RANDOM URINE Routine 03/07/2025 9:27 PM EDT ALBUMIN, URINE, RANDOM Routine 9:27 PM EDT SODIUM, URINE, RANDOM Routine 03/07/2025 9:27 PM EDT PROTEIN, URINE, RANDOM WITH CREATININE Routine 03/07/2025 9:27 PM EDT POTASSIUM, URINE, RANDOM Routine 03/07/2025 9:27 PM EDT OSMOLALITY, URINE Routine 03/07/2025 9:2 7 PM EDT CHLORIDE, RANDOM URINE Routine 9:27 PM EDT POCT GLUCOSE METER UNSOLICITED RESULTS Routine 03/07/2025 8:03 PM EDT US RENAL COMPLETE Routine 03/07/2025 7:1 1 PM EDT POCT GLUCOSE METER UNSOLICITED RESULTS Routine 03/07/2025 4:24 PM EDT ECHO, ADULT TRANSTHORACIC COMPLETE Routine 03/07/2025 1:13 PM EDT POCT GLUCOSE METER UNSOLICITED RESULTS Routine 03/07/2025 11:01 AM EDT POCT GLUCOSE METER UNSOLICITED RESULTS Routine 03/07/2025 7:11 AM EDT CYSTATIN C Add-On 03/07/2025 4:43 AM EDT PROTHROMBIN TIME(PT) / INR Routine 03/07/2025 4:43 AM EDT CBC W/O DIFFERENTIAL Routine 03/07/2025 4:43 AM EDT MAGNESIUM, PLASMA Routine 03/07/2025 4:4 3 AM EDT BLOOD GAS PANEL, VENOUS Routine 03/07/20 4:43 AM EDT FOLATE, SERUM Routine 03/07/2025 4:43 AM EDT FERRITIN, SERUM Routine 03/07/2025 4:43 AM EDT VITAMIN B12, SERUM Routine 03/07/2025 4: 43 AM EDT RENAL FUNCTION PANEL, PLASMA Routine 03/07/2025 4:43 AM EDT ECG ADULT Routine 03/07/2025 3:48 AM EDT POCT GLUCOSE METER UNSOLICITED RESULTS Routine 03/07/2025 2:08 AM EDT URINALYSIS MICROSCOPIC FOR UA REFLEX STAT 03/07/2025 2:00 AM EDT UREA NITROGEN, RANDOM URINE STAT 03/07/2025 2:00 AM EDT DRUG ABUSE SCREEN, URINE STAT 03/07/2025 2:00 AM EDT SODIUM, URINE, RANDOM STAT 03/07/2025 2:00 AM EDT PROTEIN, URINE, RANDOM WITH CREATININE STAT 03/07/2025 2:00 AM EDT URINALYSIS WITH REFLEX MICROSCOPIC STAT 03/07/2025 2:00 AM EDT SARS COV-2/COVID-19 BY PCR - RAPID STAT 03/07/2025 12:12 AM EDT NASOPHARYNGEAL RESPIRATORY PANEL STAT 03/07/2025 12:12 AM EDT TROPONIN T, HIGH SENSITIVITY, 2 HOUR, PLASMA Timed 03/06/2025 10:05 PM EDT ANTI XA LEVEL UNFRACTIONATED HEPARIN STAT 03/06/2025 8:26 PM EDT XR CHEST 1 VIEW STAT 03/06/2025 8:04 PM EDT TROPONIN T, HIGH SENSITIVITY, 0 HOUR, PLASMA, REFLEX TO 2 HOUR STAT 03/06/2025 7:57 PM EDT LACTATE, VENOUS STAT 03/06/2025 7:57 PM EDT N-TERMINAL PROBNP, PLASMA STAT 03/06/2025 7:57 PM EDT IRON & TOTAL IRON BINDING CAPACITY, PLASMA (INCLUDES TRANSFERRIN) Add-On 03/06/2025 7:57 PM EDT PROTHROMBIN TIME(PT) / INR STAT 03/06/2025 7:57 PM EDT CBC WITH AUTO DIFFERENTIAL STAT 03/06/2025 7:57 PM EDT TSH STAT 03/06/2025 7:57 PM EDT FREE T4, PLASMA STAT 03/06/2025 7:57 PM EDT PHOSPHORUS, PLASMA Add-On 03/06/2025 7: 57 PM EDT MAGNESIUM, PLASMA STAT 03/06/2025 7:5 7 PM EDT LIPASE, PLASMA STAT 03/06/2025 7:57 PM EDT HEMOGLOBIN A1C Add-On 03/06/2025 7:57 PM EDT COMPREHENSIVE METABOLIC PANEL, PLASMA STAT 03/06/2025 7:57 PM EDT POCT ARTERIAL BLOOD GAS GEM UNSOLICITED RESULTS Routine 03/06/2025 7:48 PM EDT ECG ADULT Routine 03/06/2025 7:47 PM EDT EXTRA TUBE LIGHT GREEN TOP Routine 03/06/2025 7:47 PM EDT EXTRA TUBES Routine 03/06/2025 7:47 PM EDT ECG ADULT STAT 03/06/2025 7:31 PM EDT MI CRITICAL CARE, E/M 30-74 MINUTES Routine 03/06/2025 7:17 PM EDT documented in this encounter Results * (ABNORMAL) POCT glucose meter (03/10/2025 12:13 PM EDT) [facility] POCT Glucose 192(H) 74 - 99 mg/dL 03/10/2025 12:15 PM EDT [facility] Comment:Accuracy of a glucos e result obtained from a capillary whole blood specimen relies upon adequate, non-compromised capillary blood flow. If the capillary glucose result is not consistent with the patient's clinical signs and symptoms, glucose testing should be repeated with either an arterial or venous sample on the glucometer or sent to the main labortory for testing. Comment 03/10/2025 12:15 PM EDT [facility] Weather Anchor ID Daniel Loving V 025 12:15 PM EDT HEALTHCARE LAB Device ID [id number] 03/10/2025 12:15 PM EDT [facility]ARE [facility] Specimen Type POC Capillary 03/10/2025 12:15 PM EDT [facility] Blood Capillary blood specimen / Unknown 03/10/2025 12:13 PM EDT 03/10/2025 12:15 PM EDT us Harish Baer MD LAB POINT OF CARE TE ST DOCKED DEVICE UNSOLICITED RESULTS Final Result Performing Organization Address City/State/[facility] Co de Phone Number [facility]ALTH[facility]ARE [facility] [address] [place] [address] * (ABNORMAL) POCT glucose meter (03/10/2025 7:25 AM EDT) [facility] POCT Glucose 130(H) 74 - 99 mg/dL 03/10/2025 7:44 AM EDT [facility] Comment:Accuracy of a glucos e result obtained from a capillary whole blood specimen relies upon adequate, non-compromised capillary blood flow. If the capillary glucose result is not consistent with the patient's clinical signs and symptoms, glucose testing should be repeated with either an arterial or venous sample on the glucometer or sent to the main labortory for testing. Comment 03/10/2025 7:44 AM EDT [facility] Weather Anchor ID Daniel Loving V 025 7:44 AM EDT HEALTHCARE LAB Device ID [id number] 03/10/2025 7:44 AM EDT [facility]ALTHCARE [facility] Specimen Type POC Capillary 03/10/2025 7:44 AM EDT [facility] Blood Capillary blood specimen / Unknown 03/10/2025 7:25 AM EDT 03/10/2025 7:44 AM EDT us Harish Baer MD LAB POINT OF CARE TE ST DOCKED DEVICE UNSOLICITED RESULTS Final Result Performing Organization Address [facility] de Phone Number [facility] [address] [place] [address] * (ABNORMAL) [facility] Lambda Quant Free Light Chains w/Ratio (03/10/2025 2:04 AM EDT) [facility] Lambda Free Light Chain Ratio 1.21 0.26 - 1.65 Ratio 03/11/2025 12:24 AM EDT [facility] Hopkins Quant Free Light Chains 61.25(H) 3.30 - 19.40 mg/L 03/11/2025 12:24 AM EDT [facility] Lambda Quant Free Light Chains 50.82(H) 5.71 - 26.30 mg/L 03/11/2025 12:24 AM EDT [facility] Blood Venous blood specimen / Unknown Venipuncture / Unknown 03/10/2025 2:04 AM EDT 03/10/2025 2:13 AM EDT Narrative [facility] - 03/11/2025 12:24 AM EDT Undetected antigen excess is a rare event but cannot be excluded.If these free light chain results do not agree with other clinical or laboratory findings,or if the sample is from a patient that has previously demonstrated antigen excess,the results must be checked by retesting at a higher sample dilution. Results should always be interpreted in conjunction with other laboratory tests and clinical evidence; any anomalies should be discussed with the testing laboratory. Test performed at [facility],Special Chemistry Laboratory. us Harish Baer MD LAB BLOOD ORDERABLES Final Resu lt [facility] [address] [place] [address] * (ABNORMAL) CBC W/O Differential (03/10/2025 2:04 AM EDT) WBC Count 4.02 3.70 - 10.30 10*3/uL LAB HEMATOLOGY METHOD 03/10/2025 2:22 AM EDT [facility] RBC Count 2.90(L) 4.60 - 6.10 10*6/uL LAB HEMATOLOGY METHOD 03/10/2025 2:22 AM EDT [facility] HGB 8.6(L) 13.7 - 17.5 g/dL LAB HEMATOLOGY METHOD 03/10/2025 2:22 AM EDT [facility] HCT 26.2(L) 40.0 - 51.0 % LAB HEMATOLOGY METHOD 03/10/2025 2:22 AM EDT [facility] Platelet Count 159 155 - 369 10*3/uL LAB HEMATOLOGY METHOD 03/10/2025 2:22 AM EDT [facility] MCV 90 79 - 98 fL LAB HEMATOLOGY METHOD 03/10/2025 2:22 AM EDT [facility] MCH 29.7 26.0 - 32.0 pg LAB HEMATOLOGY METHOD 03/10/2025 2:22 AM EDT [facility] MCHC 32.8 30.7 - 35.5 g/dL LAB HEMATOLOGY METHOD 03/10/2025 2:22 AM EDT [facility] RDW 13.2 11.5 - 14.5 % LAB HEMATOLOGY METHOD 03/10/2025 2:22 AM EDT [facility] MPV 10.4 8.8 - 12.5 fL LAB HEMATOLOGY METHOD 03/10/2025 2:22 AM EDT [facility] nRBC 0.0 <=0.0 per 100 WBCs LAB HEMATOLOGY METHOD 03/10/2025 2:22 AM EDT [facility] Blood Venous blood specimen / Unknown Venipuncture / Unknown 03/10/2025 2:04 AM EDT 03/10/2025 2:14 AM EDT us Harish Baer MD LAB BLOOD ORDERABLES Final Resu lt [facility] [address] [place] [address] * (ABNORMAL) Cystatin C (03/10/2025 2:04 AM EDT) Cystatin C 3.22(H) 0.61 - 0.95 mg/L 03/10/2025 2:46 AM EDT [facility] Blood Venous blood specimen / Unknown Venipuncture / Unknown 03/10/2025 2:04 AM EDT 03/10/2025 2:14 AM EDT Harish Baer MD LAB BLOOD ORDERABLES Final Resu lt Performing Organization Address City/[facility]/ZIP Co de Phone Number [facility] [address] [place] [address] * (ABNORMAL) C-Reactive Protein, Plasma (03/10/2025 2:04 AM EDT) CRP, Plasma 26.7(H) <=8.0 mg/L 03/10/2025 2:46 AM EDT [facility] Blood Venous blood specimen / Unknown Venipuncture / Unknown 03/10/2025 2:04 AM EDT 03/10/2025 2:14 AM EDT Narrative [facility] - 03/10/2025 2:46 AM EDT This CRP test is appropriate for assessment of infection, systemic inflammation and/or tissue injury. To assess cardiovascular disease risk order high sensitivity CRP (CRPH). us Harish Baer MD LAB BLOOD ORDERABLES Final Resu lt Performing Organization Address [facility] [place] [address] * Phosphorus, Plasma (03/10/2025 2:04 AM EDT) Phosphorus, Plasma 3.2 2.5 - 4.5 mg/dL 03/10/2025 2:46 AM EDT [facility] Blood Venous blood specimen / Unknown Venipuncture / Unknown 03/10/2025 2:04 AM EDT 03/10/2025 2:14 AM EDT Harish Baer MD LAB BLOOD ORDERABLES Final Resu lt Performing Organization Address City/[facility]/ZIP Co de Phone Number [facility] [address] [place] [address] * (ABNORMAL) Magnesium, Plasma (03/10/2025 2:04 AM EDT) Magnesium, Plasma 1.8(L) 1.9 - 2.4 mg/dL 03/10/2025 2:46 AM EDT [facility] Blood Venous blood specimen / Unknown Venipuncture / Unknown 03/10/2025 2:04 AM EDT 03/10/2025 2:14 AM EDT us Harish Baer MD LAB BLOOD ORDERABLES Final Resu lt [facility] [address] [place] [address] * (ABNORMAL) Comprehensive Metabolic Panel, Plasma (03/10/2025 2:04 AM EDT) Glucose, Plasma 177(H) 74 - 99 mg/dL 03/10/2025 2:46 AM EDT [facility] BUN, Plasma 42(H) 8 - 23 mg/dL 03/10/2025 2:46 AM EDT [facility] Creatinine, Plasma 3.78(H) 0.70 - 1.20 mg/dL 03/10/2025 2:46 AM EDT [facility] BUN/Creatinine Ratio 11 03/10/2025 2:46 AM EDT [facility] Sodium, Plasma 136 136 - 145 mmol/L 03/10/2025 2:46 AM EDT [facility] Potassium, Plasma 3.8 3.6 - 4.9 mmol/L 03/10/2025 2:46 AM EDT [facility] Chloride, Plasma 104 97 - 107 mmol/L 03/10/2025 2:46 AM EDT [facility] CO2, Plasma 21(L) 22 - 29 mmol/L 03/10/2025 2:46 AM EDT [facility] Anion Gap 11 6 - 16 mmol/L 03/10/2025 2:46 AM EDT [facility] Total Calcium, Plasma 7.2(L) 8.9 - 10.2 mg/dL 03/10/2025 2:46 AM EDT [facility] Total Protein 4.1(L) 6.3 - 7.9 g/dL 03/10/2025 2:46 AM EDT [facility] Albumin, Plasma 2.0(L) 3.5 - 5.2 g/dL 03/10/2025 2:46 AM EDT [facility] AST, Plasma 17 10 - 50 U/L 03/10/2025 2:46 AM EDT [facility] ALT, Plasma 11 10 - 50 U/L 03/10/2025 2:46 AM EDT [facility] Alkaline Phosphatase, Plasma 75 40 - 115 U/L 03/10/2025 2:46 AM EDT [facility] Total Bilirubin, Plasma 0.3 0.2 - 1.1 mg/dL 03/10/2025 2:46 AM EDT [facility] eGFRcr 15.1 mL/min/1.7 3m*2 03/10/2025 2:46 AM EDT [facility] Comment:Reported eGFRcr in m L/min/1.73m2 is based the CKD-EPI 2020 equation that does not use a race coefficient. Blood Venous blood specimen / Unknown Venipuncture / Unknown 03/10/2025 2:04 AM EDT 03/10/2025 2:14 AM EDT us Harish Baer MD LAB BLOOD ORDERABLES Final Resu lt [facility] [address] [place] [address] * Hepatitis panel, acute (03/10/2025 2:04 AM EDT) Hepatitis B Surf Antigen Negative Negative 03/10/2025 3:44 AM EDT [facility] Hepatitis C Antibody Negative Negative 03/10/2025 3:44 AM EDT [facility] Hepatitis A Antibody IgM Negative Negative 03/10/2025 3:44 AM EDT [facility] Hepatitis B Core Antibody IgM Negative Negative 03/10/2025 3:44 AM EDT [facility] Blood Venous blood specimen / Unknown Venipuncture / Unknown 03/10/2025 2:04 AM EDT 03/10/2025 2:13 AM EDT us Harish Baer MD LAB BLOOD ORDERABLES Final Resu lt Performing Organization Address City/[facility] Co de Phone Number [facility] [address] [place] [address] * (ABNORMAL) POCT glucose meter (03/09/2025 9:00 PM EDT) [facility] POCT Glucose 230(H) 74 - 99 mg/dL 03/09/2025 9:01 PM EDT [facility] Comment:Accuracy of a glucos e result obtained from a capillary whole blood specimen relies upon adequate, non-compromised capillary blood flow. If the capillary glucose result is not consistent with the patient's clinical signs and symptoms, glucose testing should be repeated with either an arterial or venous sample on the glucometer or sent to the main labortory for testing. Comment 03/09/2025 9:01 PM EDT [facility] Weather An[employer] ID Mattie Brandt 03/09/2025 9:01 PM EDT [facility]ARE [facility] Device ID [id number] 03/09/2025 9:01 PM EDT [facility] Specimen Type POC Capillary 03/09/2025 9:01 PM EDT [facility] Blood Capillary blood specimen / Unknown 03/09/2025 9:00 PM EDT 03/09/2025 9:01 PM EDT Harish Baer MD LAB POINT OF CARE TE ST DOCKED DEVICE UNSOLICITED RESULTS Final Result Performing Organization Address [facility] Co de Phone Number [facility] [address] [place] [address] * Thrombospondin Type-1 Domain-Containing 7A Antibodies, S (03/09/2025 5:32 PM EDT) [facility] THSD7A Ab, S Negative Negative 03/14/2025 2:26 PM EDT [facility] ([facility]) Comment: ADDITIONAL INFORMATION This test was developed and its performance characteristics determined by [facility] in a manner consistent with CLIA requirements. This test has not been cleared or approved by the U.S. Food and Drug Administration. Test Performed by: [address] [address] Regulatory Associate: Иван Mariano Ph.D.; CLIA# [id number] Blood Venous blood specimen / Unknown Venipuncture / Unknown 03/09/2025 5:32 PM EDT 03/09/2025 5:59 PM EDT Harish Baer MD LAB REF LAB BLOOD AND FLUID ORD Final Result Performing Organization Address [facility]/ZIP Co de Phone Number [facility] ([place]) * Phospholipase A2 Receptor, Immunofluorescence, S (03/09/2025 5:32 PM EDT) Pathologist [facility] PLA2R, Immunofluorescence, S Negative Negative 03/14/2025 2:26 PM EDT [facility] ([facility]) Comment: PLA2R is Negative ADDITIONAL INFORMATION This test was developed and its performance characteristics determined by [facility] in a manner consistent with CLIA requirements. This test has not been cleared or approved by the U.S. Food and Drug Administration. Test Performed by: [address] [address] Regulatory Associate: Иван Mariano Ph.D.; CLIA# [id number] Blood Venous blood specimen / Unknown Venipuncture / Unknown 03/09/2025 5:32 PM EDT 03/09/2025 5:59 PM EDT Harish Baer MD LAB REF LAB BLOOD AND FLUID ORD Final Result Performing Organization Address City/[facility]/ZIP Co de Phone Number [facility] ([facility]) * Protein electrophoresis serum, pathologist interpretation (03/09/2025 5:32 PM EDT) Pathologist [facility] Clinical Diagnosis, SPEP Nephrotic Syndrome 03/10/2025 11:18 AM EDT [facility] Interpretation , SPEP There is no indication of monoclonal gammopathy by this method. The protein electrophoretic pattern reveals a markedly depressed total protein and albumin concentration, mildly to moderately depressed beta-1 and gamma fractions, and mildly elevated alpha-2 fraction. This pattern is most consistent with nephrotic syndrome. A resident was involved in the service. I attest I examined the relevant preparations for the specimens and confirmed the diagnosis or interpretation. 03/10/2025 11:18 AM EDT [facility] Pathologist Signature, SPEP Reviewed by: Sorin Montoya MD 03/10/2025 11:18 AM EDT [facility] LAB CP ASR DISCLAIMER Yes 03/10/2025 11:18 AM EDT [facility] Blood Venous blood specimen / Unknown Venipuncture / Unknown 03/09/2025 5:32 PM EDT 03/09/2025 5:54 PM EDT Harish Baer MD LAB PATHOLOGY ORDERABLES Final Result Performing Organization Address [facility] Co de Phone Number [facility] [address] [place] [address] * (ABNORMAL) Total Protein, Serum (03/09/2025 5:32 PM EDT) Total Protein 4.2(L) 6.2 - 7.7 g/dL 03/09/2025 6:22 PM EDT [facility] Blood Venous blood specimen / Unknown Venipuncture / Unknown 03/09/2025 5:32 PM EDT 03/09/2025 5:53 PM EDT Harish Baer MD LAB BLOOD ORDERABLES Final Resu lt Performing Organization Address City/[facility]/ZIP Co de Phone Number [facility] [address] [place] [address] * (ABNORMAL) Protein Electrophoresis, Serum (03/09/2025 5:32 PM EDT) Albumin Electrophoresis, Serum 2.0(L) 3.6 - 4.7 g/dL 03/10/2025 2:36 AM EDT [facility] Alpha 1 Globulin Electrophoresis, Serum 0.4 0.2 - 0.4 g/dL 03/10/2025 2:36 AM EDT [facility] Alpha 2 Globulin Electrophoresis, Serum 1.0(H) 0.5 - 0.9 g/dL 03/10/2025 2:36 AM EDT [facility] Beta 1 Globulin Electrophoresis, Serum 0.2(L) 0.3 - 0.5 g/dL 03/10/2025 2:36 AM EDT [facility] Beta 2 Globulin Electrophoresis, Serum 0.3 0.2 - 0.5 g/dL 03/10/2025 2:36 AM EDT [facility] Gamma Globulin Electrophoresis, Serum 0.3(L) 0.6 - 1.5 g/dL 03/10/2025 2:36 AM EDT [facility] Interpretation, Serum Protein Electrophoresis Pathology report to follow. 03/10/2025 2:36 AM EDT [facility] Blood Venous blood specimen / Unknown Venipuncture / Unknown 03/09/2025 5:32 PM EDT 03/09/2025 5:54 PM EDT Harish Baer MD LAB BLOOD ORDERABLES Final Resu lt [facility] [address] [place] [address] * Glomerular Basement Membrane Antibody, IgG (03/09/2025 5:32 PM EDT) GBM AB, IGG BY MULTIPLEX BEAD ASSAY 0 0 - 19 AU/mL 03/12/2025 7:37 AM EDT [facility] ([place]) Blood Venous blood specimen / Unknown Venipuncture / Unknown 03/09/2025 5:32 PM EDT 03/09/2025 5:54 PM EDT Narrative [facility] ([facility]) - 03/12/2025 7:37 AM EDT INTERPRETIVE INFORMATION: GBM Ab, IgG by Multiplex Bead Assay 19 AU/mL or Less ......... Negative 20-25 AU/mL .............. Equivocal 26 AU/mL or Greater ...... Positive The presence of anti-glomerular basement membrane (GBM) antibodies by Multiplex Bead Assay may aid in the diagnosis of Goodpasture syndrome. False positive results may occur due to reactivity against other chains of type IV collagen. If Multiplex Bead Assay is negative but there is a strong suspicion for disease, renal biopsy may be indicated. A renal biopsy may also be essential in suspected Goodpasture disease with renal involvement, allowing diagnostic confirmation and assessment of renal prognosis. Performed By: [facility] [address] [place] [address] [employer] Washer: Xavi Queen MD, PhD CLIA Number: [id number] Harish Baer MD LAB BLOOD ORDERABLES Final Resu lt [facility] ([facility]) [address] [place] [address] * Antinuclear Antibody (LC) with HEp-2 Substrate, IgG by IFA (03/09/2025 5:32 PM EDT) LC INTERPRETIVE COMMENT See Note 03/12/2025 11:08 PM EDT [facility] ([facility]) Anti Nuc Ab Screen <1:80 <1:80 03/12/2025 11:08 PM EDT [facility] ([facility]) Blood Venous blood specimen / Unknown Venipuncture / Unknown 03/09/2025 5:32 PM EDT 03/09/2025 5:54 PM EDT Narrative [facility] ([facility]) - 03/12/2025 11:08 PM EDT Clinical Interpretation: Antinuclear antibodies by IFA negative for homogeneous, speckled, nucleolar, centromere, and nuclear dots patterns. Cytoplasmic antibodies by IFA negative for reticular/AMA, discrete/GW body-like, polar/golgi-like, rods and rings, and cytoplasmic speckled patterns. INTERPRETIVE INFORMATION: LC Interpretive Comment Presence of antinuclear antibodies (LC) is a hallmark feature of systemic autoimmune rheumatic diseases (SARD). However, LC lacks diagnostic specificity and is associated with a variety of diseases (cancers, autoimmune, infectious, and inflammatory conditions) and may also occur in healthy individuals in varying prevalence. The lack of diagnostic specificity requires confirmation of positive LC by more specific serologic tests. LC (nuclear reactivity) positive patterns reported include centromere, homogeneous, nuclear dots, nucleolar, or speckled. LC (cytoplasmic reactivity) positive patterns reported include reticular/AMA, discrete/GW body-like, polar/golgi-like, cytoplasmic speckled or rods and rings. All positive patterns are reported to endpoint titers (1:2560). Reported patterns may help guide differential diagnosis, although they may not be specific for individual antibodies or diseases. Mitotic staining patterns not reported. Negative results do not necessarily rule out SARD. Performed By: [employer] [address] [place] [address] Brown Stock Washer: Xavi Queen MD, PhD CLIA Number: [id number] Harish Baer MD LAB BLOOD ORDERABLES Final Resu lt Performing Organization Address [facility]/ZIP Co de Phone Number [facility] [address] [place] [address] * Primary Membranous Nephropathy Diagnostic Crane, S (SO) (03/09/2025 5:32 PM EDT) [facility] Phospholipase A2 Receptor GIOVANNI,S <2 RU/mL 03/14/2025 11:46 AM EDT [facility] (DANA) Comment: REFERENCE VALUE <14 RU/mL: Negative >=14 to <20 RU/mL: Borderline >=20 RU/mL: Positive Test Performed by: [place] [address] Regulatory Associate: Иван Mariano Ph.D.; CLIA# [id number] Blood Venous blood specimen / Unknown Venipuncture / Unknown 03/09/2025 5:32 PM EDT 03/09/2025 5:59 PM EDT Harish Baer MD LAB REF LAB BLOOD AND FLUID ORD Final Result [facility] [employer] properties and servicesKOREY) * (ABNORMAL) POCT glucose meter (03/09/2025 5:25 PM EDT) Pathologist [facility] POCT Glucose 206(H) 74 - 99 mg/dL 03/09/2025 5:26 PM EDT [facility] Comment:Accuracy of a glucos e result obtained from a capillary whole blood specimen relies upon adequate, non-compromised capillary blood flow. If the capillary glucose result is not consistent with the patient's clinical signs and symptoms, glucose testing should be repeated with either an arterial or venous sample on the glucometer or sent to the main labortory for testing. Comment 03/09/2025 5:26 PM EDT [facility] Weather Anchor ID Al Benito 03/09/20 5:26 PM EDT [facility] Device ID [id number] 03/09/2025 5:26 PM EDT [facility] Specimen Type POC Capillary 03/09/2025 5:26 PM EDT [facility] Blood Capillary blood specimen / Unknown 03/09/2025 5:25 PM EDT 03/09/2025 5:26 PM EDT Harish Baer MD LAB POINT OF CARE TE ST DOCKED DEVICE UNSOLICITED RESULTS Final Result Performing Organization Address City/State/[facility] Co de Phone Number [facility] [address] [place] [address] * CT Abdomen Pelvis wo IV Contrast (03/09/2025 4:47 PM EDT) Anatomical Region Laterality Modality Abdomen, Pelvis Computed Tomogra phy Impressions 03/09/2025 5:05 PM EDT Motion limits evaluation. Gastric wall thickening and perigastric fat stranding may represent gastritis. Overdistended urinary bladder. No acute findings in the right lower quadrant to explain patient's CRITICAL RESULT: No. COMMUNICATION: Per this written report. Drafted by Imelda Morales MD on 03/09/2025 5:01 PM Final report signed by Imelda Morales MD on 03/09/2025 5:05 PM Narrative 03/09/2025 5:05 PM EDT CLINICAL INDICATION: RLQ abdominal pain TECHNIQUE: Multiple axial CT images were obtained from lung bases through pubic symphysis without the administration of IV contrast. Reformatted images in the coronal and sagittal planes were generated from the axial data set to facilitate diagnostic accuracy. Total DLP (Dose-Length Product): 393.16 mGy.cm. Please note: The reported value represents the total of one or more individual components during the CT acquisition on this date and at this time, and as such, the same value may appear in more than one CT report depending on the interpreting/reporting physicians. COMPARISON: None. FINDINGS: Lower Chest: There may be trace right effusion with basilar atelectasis versus scarring. Analysis of the abdominopelvic viscera is limited by the absence of intravenous contrast material. Solid Abdominal Organs: Homogenous hepatic attenuation. Nondistended gallbladder without radiopaque gallstones. No biliary ductal dilatation. Unremarkable spleen, pancreas, bilateral adrenal glands. Bilateral renal cysts. No hydronephrosis. GI Tract/Mesentery/Peritoneum: Nondistended stomach. Gastric wall thickening with perigastric inflammation. The large and small bowel are normal in caliber. Normal appendix. No pneumatosis or pneumoperitoneum. Pelvic Viscera: Over distended urinary bladder. There may be a posterior diverticulum. Enlarged prostate with indentation of the bladder base. Lymph Nodes/Vasculature: No lymphadenopathy by CT size criteria. The aortoiliac vasculature is normal in caliber. Moderate atherosclerotic calcification of the abdominal aorta and iliac arteries. 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 Free Fluid: No free fluid in the abdomen or pelvis. Musculoskeletal and Body Wall: Multilevel degenerative changes of the spine. Procedure Note Imelda Morales MD - 03/09/2025 CLINICAL INDICATION: RLQ abdominal pain TECHNIQUE: Multiple axial CT images were obtained from lung bases through pubicsymphysis without the administration of IV contrast. Reformatted images inthe coronal and sagittal planes were generated from the axial data set tofacilitate diagnostic accuracy. Total DLP (Dose-Length Product): 393.16 mGy.cm. Please note: The reportedvalue represents the total of one or more individual components during theCT acquisition on this date and at this time, and as such, the same valuemay appear in more than one CT report depending on theinterpreting/reporting physicians. COMPARISON: None. FINDINGS: Lower Chest: There may be trace right effusion with basilar atelectasisversus scarring. Analysis of the abdominopelvic viscera is limited by the absence ofintravenous contrast material. Solid Abdominal Organs: Homogenous hepatic attenuation. Nondistendedgallbladder without radiopaque gallstones. No biliary ductal dilatation.Unremarkable spleen, pancreas, bilateral adrenal glands. Bilateral renalcysts. No hydronephrosis. GI Tract/Mesentery/Peritoneum: Nondistended stomach. Gastric wallthickening with perigastric inflammation. The large and small bowel arenormal in caliber. Normal appendix. No pneumatosis or pneumoperitoneum. Pelvic Viscera: Over distended urinary bladder. There may be a posteriordiverticulum. Enlarged prostate with indentation of the bladder base. Lymph Nodes/Vasculature: No lymphadenopathy by CT size criteria. Theaortoiliac vasculature is normal in caliber. Moderate atheroscleroticcalcification of the abdominal aorta and iliac arteries. Likely chronicdissection of the right common iliac artery. Free Fluid: No free fluid in the abdomen or pelvis. Musculoskeletal and Body Wall: Multilevel degenerative changes of thespine. IMPRESSION: Motion limits evaluation. Gastric wall thickening and perigastric fat stranding may representgastritis. Overdistended urinary bladder. No acute findings in the right lower quadrant to explain patient's CRITICAL RESULT: No. COMMUNICATION: Per this written report. Drafted by Imelda Morales MD on 03/09/2025 5:01 PM Final report signed by Imelda Morales MD on 03/09/2025 5:05 PM Harish Baer MD IMG CT PROCEDURES Final Result * (ABNORMAL) POCT glucose meter (03/09/2025 1:15 PM EDT) POCT Glucose 206(H) 74 - 99 mg/dL 03/09/2025 1:16 PM EDT [facility] Comment:Accuracy of a glucos e result obtained from a capillary whole blood specimen relies upon adequate, non-compromised capillary blood flow. If the capillary glucose result is not consistent with the patient's clinical signs and symptoms, glucose testing should be repeated with either an arterial or venous sample on the glucometer or sent to the main labortory for testing. Comment 03/09/2025 1:16 PM EDT [employer] [facility] Weather Anchor ID Gwen Gongora 03/09/20 1:16 PM EDT [facility] Device ID [id number] 03/09/2025 1:16 PM EDT [facility] LAB Specimen Type POC Capillary 03/09/2025 1:16 PM EDT [facility] Blood Capillary blood specimen / Unknown 03/09/2025 1:15 PM EDT 03/09/2025 1:16 PM EDT Harish Baer MD LAB POINT OF CARE TE ST DOCKED DEVICE UNSOLICITED RESULTS Final Result Performing Organization Address [facility] Co de Phone Number [facility] [address] [place] [address] * (ABNORMAL) POCT glucose meter (03/09/2025 7:58 AM EDT) POCT Glucose 191(H) 74 - 99 mg/dL 03/09/2025 8:00 AM EDT [facility] Comment:Accuracy of a glucos e result obtained from a capillary whole blood specimen relies upon adequate, non-compromised capillary blood flow. If the capillary glucose result is not consistent with the patient's clinical signs and symptoms, glucose testing should be repeated with either an arterial or venous sample on the glucometer or sent to the main labortory for testing. Comment 03/09/2025 8:00 AM EDT [facility] Weather Anchor ID Al Benito 03/09/20 8:00 AM EDT [facility]ARE LAB Device ID [id number] 03/09/2025 8:00 AM EDT [facility] Specimen Type POC Capillary 03/09/2025 8:00 AM EDT [facility] Blood Capillary blood specimen / Unknown 03/09/2025 7:58 AM EDT 03/09/2025 8:00 AM EDT us Harish Baer MD LAB POINT OF CARE TE ST DOCKED DEVICE UNSOLICITED RESULTS Final Result Performing Organization Address City/[facility]/ZIP Co de Phone Number [facility] [address] [place] [address] * (ABNORMAL) POCT glucose meter (03/09/2025 3:38 AM EDT) POCT Glucose 189(H) 74 - 99 mg/dL 03/09/2025 3:41 AM EDT [facility] Comment:Accuracy of a glucos e result obtained from a capillary whole blood specimen relies upon adequate, non-compromised capillary blood flow. If the capillary glucose result is not consistent with the patient's clinical signs and symptoms, glucose testing should be repeated with either an arterial or venous sample on the glucometer or sent to the main labortory for testing. Comment 03/09/2025 3:41 AM EDT [facility] Weather Anchor ID Ruthie Singh 03/09/20 3:41 AM EDT [facility]ARE LAB Device ID [id number] 03/09/2025 3:41 AM EDT [facility] Specimen Type POC Capillary 03/09/2025 3:41 AM EDT [facility] Blood Capillary blood specimen / Unknown 03/09/2025 3:38 AM EDT 03/09/2025 3:41 AM EDT us Harish Baer MD LAB POINT OF CARE TE ST DOCKED DEVICE UNSOLICITED RESULTS Final Result Performing Organization Address City/[facility]/ZIP Co de Phone Number [facility] [address] [place] [address] * Rheumatoid factor, Plasma (03/09/2025 12:33 AM EDT) Rheumatoid Factor, Plasma <10 <14 IU/mL 03/09/2025 4:59 PM EDT [facility] Blood Venous blood specimen / Unknown Venipuncture / Unknown 03/09/2025 12:33 AM EDT 03/09/2025 12:51 AM EDT us Harish Baer MD LAB BLOOD ORDERABLES Final Resu lt [facility] [address] [place] [address] * C4 complement (03/09/2025 12:33 AM EDT) C4 Complement 25 13 - 36 mg/dL 03/09/2025 5:00 PM EDT [facility] Blood Venous blood specimen / Unknown Venipuncture / Unknown 03/09/2025 12:33 AM EDT 03/09/2025 12:52 AM EDT us Harish Baer MD LAB BLOOD ORDERABLES Final Resu lt [facility] [address] [place] [address] * C3 complement (03/09/2025 12:33 AM EDT) C3 Complement 115 84 - 166 mg/dL 03/09/2025 5:00 PM EDT [facility] Blood Venous blood specimen / Unknown Venipuncture / Unknown 03/09/2025 12:33 AM EDT 03/09/2025 12:52 AM EDT Harish Baer MD LAB BLOOD ORDERABLES Final Resu lt Performing Organization Address [facility]/ZIP Co de Phone Number [facility] [address] [place] [address] * (ABNORMAL) CBC W/O Differential (03/09/2025 12:33 AM EDT) Pathologist [facility] WBC Count 4.01 3.70 - 10.30 10*3/uL LAB HEMATOLOGY METHOD 03/09/2025 1:55 AM EDT [facility] RBC Count 2.86(L) 4.60 - 6.10 10*6/uL LAB HEMATOLOGY METHOD 03/09/2025 1:55 AM EDT [facility] HGB 8.8(L) 13.7 - 17.5 g/dL LAB HEMATOLOGY METHOD 03/09/2025 1:55 AM EDT [facility] HCT 25.7(L) 40.0 - 51.0 % LAB HEMATOLOGY METHOD 03/09/2025 1:55 AM EDT [facility] Platelet Count 163 155 - 369 10*3/uL LAB HEMATOLOGY METHOD 03/09/2025 1:55 AM EDT [facility] MCV 90 79 - 98 fL LAB HEMATOLOGY METHOD 03/09/2025 1:55 AM EDT [facility] MCH 30.8 26.0 - 32.0 pg LAB HEMATOLOGY METHOD 03/09/2025 1:55 AM EDT [facility] MCHC 34.2 30.7 - 35.5 g/dL LAB HEMATOLOGY METHOD 03/09/2025 1:55 AM EDT [facility] RDW 13.1 11.5 - 14.5 % LAB HEMATOLOGY METHOD 03/09/2025 1:55 AM EDT [facility] MPV 10.0 8.8 - 12.5 fL LAB HEMATOLOGY METHOD 03/09/2025 1:55 AM EDT [facility] nRBC 0.0 <=0.0 per 100 WBCs LAB HEMATOLOGY METHOD 03/09/2025 1:55 AM EDT [facility] Blood Venous blood specimen / Unknown Venipuncture / Unknown 03/09/2025 12:33 AM EDT 03/09/2025 12:54 AM EDT us Harish Baer MD LAB BLOOD ORDERABLES Final Resu lt Performing Organization Address City/[facility]/ZIP Co de Phone Number [facility] [address] [place] [address] * (ABNORMAL) Cystatin C (03/09/2025 12:33 AM EDT) Cystatin C 3.11(H) 0.61 - 0.95 mg/L 03/09/2025 1:25 AM EDT [facility] Blood Venous blood specimen / Unknown Venipuncture / Unknown 03/09/2025 12:33 AM EDT 03/09/2025 12:51 AM EDT us Harish Baer MD LAB BLOOD ORDERABLES Final Resu lt Performing Organization Address City/[facility]/ZIP Co de Phone Number [facility] [address] [place] [address] * (ABNORMAL) C-Reactive Protein, Plasma (03/09/2025 12:33 AM EDT) CRP, Plasma 39.3(H) <=8.0 mg/L 03/09/2025 1:25 AM EDT [facility] Blood Venous blood specimen / Unknown Venipuncture / Unknown 03/09/2025 12:33 AM EDT 03/09/2025 12:51 AM EDT Narrative [facility] - 03/09/2025 1:25 AM EDT This CRP test is appropriate for assessment of infection, systemic inflammation and/or tissue injury. To assess cardiovascular disease risk order high sensitivity CRP (CRPH). us Harish Baer MD LAB BLOOD ORDERABLES Final Resu lt Performing Organization Address City/[facility]/ZIP Co de Phone Number [facility] [address] [place] [address] * Phosphorus, Plasma (03/09/2025 12:33 AM EDT) Phosphorus, Plasma 2.9 2.5 - 4.5 mg/dL 03/09/2025 1:19 AM EDT [facility] Blood Venous blood specimen / Unknown Venipuncture / Unknown 03/09/2025 12:33 AM EDT 03/09/2025 12:52 AM EDT us Harish Baer MD LAB BLOOD ORDERABLES Final Resu lt Performing Organization Address [facility]/ZIP Co de Phone Number [facility] [address] [place] [address] * (ABNORMAL) Magnesium, Plasma (03/09/2025 12:33 AM EDT) Magnesium, Plasma 1.8(L) 1.9 - 2.4 mg/dL 03/09/2025 1:25 AM EDT [facility] Blood Venous blood specimen / Unknown Venipuncture / Unknown 03/09/2025 12:33 AM EDT 03/09/2025 12:51 AM EDT us Harish Baer MD LAB BLOOD ORDERABLES Final Resu lt Performing Organization Address [facility]/ZIP Co de Phone Number [facility] [address] [place] [address] * (ABNORMAL) Comprehensive Metabolic Panel, Plasma (03/09/2025 12:33 AM EDT) Glucose, Plasma 202(H) 74 - 99 mg/dL 03/09/2025 1:25 AM EDT [facility] BUN, Plasma 34(H) 8 - 23 mg/dL 03/09/2025 1:25 AM EDT [facility] Creatinine, Plasma 3.32(H) 0.70 - 1.20 mg/dL 03/09/2025 1:25 AM EDT [facility] BUN/Creatinine Ratio 10 03/09/2025 1:25 AM EDT [facility] Sodium, Plasma 133(L) 136 - 145 mmol/L 03/09/2025 1:25 AM EDT [facility] Potassium, Plasma 3.5(L) 3.6 - 4.9 mmol/L 03/09/2025 1:25 AM EDT [facility] Chloride, Plasma 101 97 - 107 mmol/L 03/09/2025 1:25 AM EDT [facility] CO2, Plasma 22 22 - 29 mmol/L 03/09/2025 1:25 AM EDT [facility] Anion Gap 10 6 - 16 mmol/L 03/09/2025 1:25 AM EDT [facility] Total Calcium, Plasma 7.2(L) 8.9 - 10.2 mg/dL 03/09/2025 1:25 AM EDT [facility] Total Protein 4.1(L) 6.3 - 7.9 g/dL 03/09/2025 1:25 AM EDT [facility] Albumin, Plasma 1.9(L) 3.5 - 5.2 g/dL 03/09/2025 1:25 AM EDT [facility] AST, Plasma 17 10 - 50 U/L 03/09/2025 1:25 AM EDT [facility] ALT, Plasma 11 10 - 50 U/L 03/09/2025 1:25 AM EDT [facility] Alkaline Phosphatase, Plasma 83 40 - 115 U/L 03/09/2025 1:25 AM EDT [facility] Total Bilirubin, Plasma 0.3 0.2 - 1.1 mg/dL 03/09/2025 1:25 AM EDT [facility] eGFRcr 17.7 mL/min/1.7 3m*2 03/09/2025 1:25 AM EDT [facility] Comment:Reported eGFRcr in m L/min/1.73m2 is based the CKD-EPI 2020 equation that does not use a race coefficient. Blood Venous blood specimen / Unknown Venipuncture / Unknown 03/09/2025 12:33 AM EDT 03/09/2025 12:51 AM EDT Harish Baer MD LAB BLOOD ORDERABLES Final Resu lt Performing Organization Address [facility] de Phone Number [facility] [address] [place] [address] * (ABNORMAL) PTH, intact (03/09/2025 12:33 AM EDT) PTH Intact Total 220(H) 9 - 77 pg/mL 03/09/2025 11:15 AM EDT [facility] Blood Venous blood specimen / Unknown Venipuncture / Unknown 03/09/2025 12:33 AM EDT 03/09/2025 1:08 AM EDT Narrative [facility] - 03/09/2025 11:15 AM EDT Assay performed by immunoassay at the [facility]. Performed on [employer] chemiluminescent immunoassay, tractable to the World Health Organization's first international standard for PTH from the [facility], Code 79/500. Results obtained from different test methods or kits cannot be used interchangeably. Harish Baer MD LAB BLOOD ORDERABLES Final Resu lt Performing Organization Address City/[facility] Co de Phone Number [place] [phone] * Prostate Cancer Screen, PSA Total (03/09/2025 12:33 AM EDT) Pathologist [facility] Prostate Cancer Screen, Serum 2.11 0.00 - 6.50 ng/mL 03/09/2025 1:30 AM EDT [facility] Blood Venous blood specimen / Unknown Venipuncture / Unknown 03/09/2025 12:33 AM EDT 03/09/2025 12:52 AM EDT Narrative [facility] - 03/09/2025 1:30 AM EDT Performed by [employer] electrochemiluminescent immunoassay which is standardized against the PSA [place] Reference Standard (WHO 96/670). Results obtained with different test methods or kits cannot be used interchangeably. us Harish Baer MD LAB BLOOD ORDERABLES Final Resu lt Performing Organization Address [facility] de Phone Number [facility] [address] [place] [address] * (ABNORMAL) Iron & Total Iron Binding Capacity, Plasma (Includes Transferrin) (03/09/2025 12:33 AM EDT) Iron, Plasma 34(L) 50 - 170 ug/dL 03/09/2025 1:25 AM EDT [facility] Transferrin, Plasma 103(L) 200 - 360 mg/dL 03/09/2025 1:25 AM EDT [facility] Total Iron Binding Capacity, Plasma 129(L) 240 - 450 ug/mL 03/09/2025 1:25 AM EDT [facility] Transferrin Saturation 26 14 - 50 % 03/09/2025 1:25 AM EDT [facility] Blood Venous blood specimen / Unknown Venipuncture / Unknown 03/09/2025 12:33 AM EDT 03/09/2025 12:51 AM EDT us Harish Baer MD LAB BLOOD ORDERABLES Final Resu lt Performing Organization Address [facility] de Phone Number [facility] [address] [place] [address] * Schistocyte Smear (03/09/2025 12:33 AM EDT) Schistocytes No Significant Schistocytes or RBC Fragments seen. No Significant Schistocytes or RBC Fragments seen. LAB HEMATOLOGY METHOD 1:55 AM EDT [facility] RBC Morphology Slide Reviewed LAB HEMATOLOGY METHOD 1:55 AM EDT [facility] Blood Venous blood specimen / Unknown Venipuncture / Unknown 03/09/2025 12:33 AM EDT 03/09/2025 12:54 AM EDT us Harish Baer MD LAB BLOOD ORDERABLES Final Resu lt Performing Organization Address [facility] Co de Phone Number [facility] [address] [place] [address] * (ABNORMAL) Prothrombin Time/INR (03/09/2025 12:33 AM EDT) Prothrombin Time 29.8(H) 12.0 - 14.3 sec LAB COAGULATION METHOD 03/09/2025 1:15 AM EDT [facility] INR 2.8(H) 0.9 - 1.1 LAB COAGULATION METHOD 03/09/2025 1:15 AM EDT [facility] Blood Venous blood specimen / Unknown Venipuncture / Unknown 03/09/2025 12:33 AM EDT 03/09/2025 12:47 AM EDT Narrative [facility] - 03/09/2025 1:15 AM EDT OPTIMAL INR RANGES FOR PATIENT ON ORAL ANTICOAGULANT THERAPY Prevention of venous thromboembolism INR 2.0 to 3.0 In patients with heart disease: Atrial fibrillation INR 2.0 to 3.0 Valvular heart disease INR 2.0 to 3.0 Tissue heart valves INR 2.0 to 3.0 Mechanical prosthetic valves INR 2.5 to 3.5 Prevention of recurrent PA INR 2.5 to 3.5 Harish Baer MD LAB BLOOD ORDERABLES Final Resu lt Performing Organization Address [facility] Co de Phone Number [facility] [address] [place] [address] * Vitamin B12, Serum (03/09/2025 12:33 AM EDT) Vitamin B12, Serum 333 210 - 1,033 pg/mL 03/09/2025 1:36 AM EDT [facility] Blood Venous blood specimen / Unknown Venipuncture / Unknown 03/09/2025 12:33 AM EDT 03/09/2025 12:52 AM EDT Harish Baer MD LAB BLOOD ORDERABLES Final Resu lt Performing Organization Address [facility]/ZIP Co de Phone Number [facility] [address] [place] [address] * (ABNORMAL) Folate, Serum (03/09/2025 12:33 AM EDT) Folate, Serum 4.3(L) >4.6 ng/mL 03/09/2025 1:36 AM EDT [facility] Blood Venous blood specimen / Unknown Venipuncture / Unknown 03/09/2025 12:33 AM EDT 03/09/2025 12:52 AM EDT Harish Baer MD LAB BLOOD ORDERABLES Final Resu lt [facility] [address] [place] [address] * Total Protein, 24 Hour Urine (03/08/2025 10:07 PM EDT) Protein, Urine 832 mg/dL 03/08/2025 11:35 PM EDT [facility] Total Protein per day 4,992 mg/day 03/08/2025 11:35 PM EDT [facility] Hours Of Collection 24 HRS 03/08/2025 11:35 PM EDT [facility] Urine, Volume 600 mL 03/08/2025 11:35 PM EDT [facility] Urine Urine specimen obtained by clean catch procedure / Unknown Non-blood Collection / Unknown 03/08/2025 10:07 PM EDT 03/08/2025 10:32 PM EDT Narrative [facility] - 03/08/2025 11:35 PM EDT Reference Range <80 mg/day if bed rest <150 mg/day if ambulatory us Harish Baer MD LAB URINE ORDERABLES Final Resu lt [facility] [address] [place] [address] * (ABNORMAL) Creatinine, 24 Hour Urine (03/08/2025 10:07 PM EDT) Creatinine, Urine 90 mg/dL 03/08/2025 11:11 PM EDT [facility] Creatinine per day, Urine 540(L) 800 - 2,500 mg/d 03/08/2025 11:11 PM EDT [facility] Hours Of Collection 24 HRS 03/08/2025 11:11 PM EDT [facility] Urine, Volume 600 mL 03/08/2025 11:11 PM EDT [facility] Urine Urine specimen obtained by clean catch procedure / Unknown Non-blood Collection / Unknown 03/08/2025 10:07 PM EDT 03/08/2025 10:32 PM EDT us Harish Baer MD LAB URINE ORDERABLES Final Resu lt [facility] [address] [place] [address] * (ABNORMAL) Albumin-creatinine ratio, 24 hr urine (03/08/2025 10:07 PM EDT) Microalbumin, Urine >440.0(H) <1.9 mg/dL 03/08/2025 11:16 PM EDT [facility] Albumin per day 11:16 PM EDT [facility] Comment:Unable to calculate, at least one value is above or below the detection limit. Microalbumin Excretion Rate 03/08/2025 11:16 PM EDT [facility] Comment:Unable to calculate, at least one value is above or below the detection limit. Creatinine, Urine 90 mg/dL 025 11:16 PM EDT [facility] Creatinine, 24H Ur 540(L) 800 - 2,500 mg/d 03/08/2025 11:16 PM EDT [facility] Comment:Unable to calculate, at least one value is above or below the detection limit. Albumin/Creatinin e Ratio 03/08/2025 11:16 PM EDT [facility] Comment:Unable to calculate, at least one value is above or below the detection limit. Hours Of Collection 24 HRS 03/08/2025 11:16 PM EDT [facility] Urine, Volume 600 mL 03/08/2025 11:16 PM EDT [facility] Urine Urine specimen obtained by clean catch procedure / Unknown Non-blood Collection / Unknown 03/08/2025 10:07 PM EDT 03/08/2025 10:32 PM EDT Harish Baer MD LAB URINE ORDERABLES Final Resu lt Performing Organization Address [facility] Co de Phone Number [facility] [address] [place] [address] * (ABNORMAL) POCT glucose meter (03/08/2025 8:15 PM EDT) POCT Glucose 285(H) 74 - 99 mg/dL 03/08/2025 8:16 PM EDT [facility] Comment:Accuracy of a glucos e result obtained from a capillary whole blood specimen relies upon adequate, non-compromised capillary blood flow. If the capillary glucose result is not consistent with the patient's clinical signs and symptoms, glucose testing should be repeated with either an arterial or venous sample on the glucometer or sent to the main labortory for testing. Comment 03/08/2025 8:16 PM EDT [facility] Weather Anchor ID Mattie Brandt 03/08/2025 8:16 PM EDT [facility] Device ID [id number] 03/08/2025 8:16 PM EDT [facility] Specimen Type POC Capillary 03/08/2025 8:16 PM EDT [facility] Blood Capillary blood specimen / Unknown 03/08/2025 8:15 PM EDT 03/08/2025 8:16 PM EDT Harish Baer MD LAB POINT OF CARE TE ST DOCKED DEVICE UNSOLICITED RESULTS Final Result Performing Organization Address [facility] Co de Phone Number [facility] [address] [place] [address] * (ABNORMAL) POCT glucose meter (03/08/2025 5:13 PM EDT) Pathologist [facility] POCT Glucose 204(H) 74 - 99 mg/dL 03/08/2025 5:17 PM EDT [facility] Comment:Accuracy of a glucos e result obtained from a capillary whole blood specimen relies upon adequate, non-compromised capillary blood flow. If the capillary glucose result is not consistent with the patient's clinical signs and symptoms, glucose testing should be repeated with either an arterial or venous sample on the glucometer or sent to the main labortory for testing. Comment 03/08/2025 5:17 PM EDT [facility] Weather Anchor ID Brody Foster 03/08/2025 5:17 PM EDT [facility] Device ID [id number] 03/08/2025 5:17 PM EDT [facility] Specimen Type POC Capillary 03/08/2025 5:17 PM EDT [facility] Blood Capillary blood specimen / Unknown 03/08/2025 5:13 PM EDT 03/08/2025 5:17 PM EDT us Harish Baer MD LAB POINT OF CARE TE ST DOCKED DEVICE UNSOLICITED RESULTS Final Result Performing Organization Address City/[facility]/ZIP Co de Phone Number [facility] [address] [place] [address] * (ABNORMAL) POCT glucose meter (03/08/2025 12:22 PM EDT) [facility] POCT Glucose 226(H) 74 - 99 mg/dL 03/08/2025 12:27 PM EDT [facility] Comment:Accuracy of a glucos e result obtained from a capillary whole blood specimen relies upon adequate, non-compromised capillary blood flow. If the capillary glucose result is not consistent with the patient's clinical signs and symptoms, glucose testing should be repeated with either an arterial or venous sample on the glucometer or sent to the main labortory for testing. Comment 03/08/2025 12:27 PM EDT [facility] Weather Anchor ID Brody Foster 03/08/2025 12:27 PM EDT [facility] Device ID [id number] 03/08/2025 12:27 PM EDT [facility] Specimen Type POC Capillary 03/08/2025 12:27 PM EDT [facility] Blood Capillary blood specimen / Unknown 03/08/2025 12:22 PM EDT 03/08/2025 12:27 PM EDT us Harish Baer MD LAB POINT OF CARE TE ST DOCKED DEVICE UNSOLICITED RESULTS Final Result [facility] [address] [place] [address] * Pulmonary function testing (03/08/2025 10:01 AM EDT) [facility] [id number] 2.49 L 03/08/2025 9:58 AM EDT [facility] PFT FEV1 PRE 1.73 L 03/08/2025 9:58 AM EDT [facility] PFT FEV1/FVC PRE 69.35 % 03/08/2025 9:58 AM EDT [facility] PFT YHX88-75% PRE 1.20 L/s 03/08/2025 9:58 AM EDT [facility] PFT PEF PRE 3.51 L/s 03/08/2025 9:58 AM EDT [facility] PFT Anatomical Region Laterality Modality PFT 03/08/2025 9:38 AM EDT Narrative 03/09/2025 9:42 AM EDT Pulmonary Function Testing Report Owen Salazar underwent pulmonary function testing today at the [facility]. The patient underwent spirometry. All tests were appropriately administered via ATS/ERS criteria. All tests are acceptable and interpretable unless noted otherwise. Spirometry: No obstruction Proportionate reduction in FEV1 and FVC with a normal ratio suggestive of a restrictive process. Recommend lung volume testing if clinically indicated. Trend: There are no prior studies for comparison. Harish Baer MD PFT ORDERABLES Final Result * (ABNORMAL) POCT glucose meter (03/08/2025 7:48 AM EDT) [facility] POCT Glucose 156(H) 74 - 99 mg/dL 03/08/2025 7:54 AM EDT [facility] Comment:Accuracy of a glucos e result obtained from a capillary whole blood specimen relies upon adequate, non-compromised capillary blood flow. If the capillary glucose result is not consistent with the patient's clinical signs and symptoms, glucose testing should be repeated with either an arterial or venous sample on the glucometer or sent to the main labortory for testing. Comment 03/08/2025 7:54 AM EDT [facility] Weather Anchor ID Brody Foster 03/08/2025 7:54 AM EDT [facility] Device ID [id number] 03/08/2025 7:54 AM EDT [facility] Specimen Type POC Capillary 03/08/2025 7:54 AM EDT [facility] Blood Capillary blood specimen / Unknown 03/08/2025 7:48 AM EDT 03/08/2025 7:54 AM EDT Harish Baer MD LAB POINT OF CARE TE ST DOCKED DEVICE UNSOLICITED RESULTS Final Result [facility] [address] [place] [id number] * (ABNORMAL) CBC W/O Differential (03/08/2025 6:15 AM EDT) WBC Count 4.93 3.70 - 10.30 10*3/uL LAB HEMATOLOGY METHOD 03/08/2025 6:38 AM EDT [facility] RBC Count 3.21(L) 4.60 - 6.10 10*6/uL LAB HEMATOLOGY METHOD 03/08/2025 6:38 AM EDT [facility] HGB 9.7(L) 13.7 - 17.5 g/dL LAB HEMATOLOGY METHOD 03/08/2025 6:38 AM EDT [facility] HCT 29.5(L) 40.0 - 51.0 % LAB HEMATOLOGY METHOD 03/08/2025 6:38 AM EDT [facility] Platelet Count 172 155 - 369 10*3/uL LAB HEMATOLOGY METHOD 03/08/2025 6:38 AM EDT [facility] MCV 92 79 - 98 fL LAB HEMATOLOGY METHOD 03/08/2025 6:38 AM EDT [facility] MCH 30.2 26.0 - 32.0 pg LAB HEMATOLOGY METHOD 03/08/2025 6:38 AM EDT [facility] MCHC 32.9 30.7 - 35.5 g/dL LAB HEMATOLOGY METHOD 03/08/2025 6:38 AM EDT [facility] RDW 13.2 11.5 - 14.5 % LAB HEMATOLOGY METHOD 03/08/2025 6:38 AM EDT [facility] MPV 10.2 8.8 - 12.5 fL LAB HEMATOLOGY METHOD 03/08/2025 6:38 AM EDT [facility] nRBC 0.0 <=0.0 per 100 WBCs LAB HEMATOLOGY METHOD 03/08/2025 6:38 AM EDT [facility] Blood Venous blood specimen / Unknown Venipuncture / Unknown 03/08/2025 6:15 AM EDT 03/08/2025 6:31 AM EDT us Harish Baer MD LAB BLOOD ORDERABLES Final Resu lt Performing Organization Address [facility]/ZIP Co de Phone Number [facility] [address] [place] [address] * (ABNORMAL) Cystatin C (03/08/2025 6:15 AM EDT) Cystatin C 3.14(H) 0.61 - 0.95 mg/L 03/08/2025 7:03 AM EDT [facility] Blood Venous blood specimen / Unknown Venipuncture / Unknown 03/08/2025 6:15 AM EDT 03/08/2025 6:31 AM EDT us Harish Baer MD LAB BLOOD ORDERABLES Final Resu lt Performing Organization Address [facility]/ZIP Co de Phone Number [facility] [address] [place] [address] * (ABNORMAL) C-Reactive Protein, Plasma (03/08/2025 6:15 AM EDT) CRP, Plasma 35.8(H) <=8.0 mg/L 03/08/2025 7:03 AM EDT [facility] Blood Venous blood specimen / Unknown Venipuncture / Unknown 03/08/2025 6:15 AM EDT 03/08/2025 6:31 AM EDT Narrative [facility] - 03/08/2025 7:03 AM EDT This CRP test is appropriate for assessment of infection, systemic inflammation and/or tissue injury. To assess cardiovascular disease risk order high sensitivity CRP (CRPH). us Harish Baer MD LAB BLOOD ORDERABLES Final Resu lt Performing Organization Address City/[facility]/ZIP Co de Phone Number [facility] [address] [place] [address] * Phosphorus, Plasma (03/08/2025 6:15 AM EDT) Phosphorus, Plasma 3.3 2.5 - 4.5 mg/dL 03/08/2025 7:03 AM EDT [facility] Blood Venous blood specimen / Unknown Venipuncture / Unknown 03/08/2025 6:15 AM EDT 03/08/2025 6:31 AM EDT us Harish Baer MD LAB BLOOD ORDERABLES Final Resu lt Performing Organization Address [facility]/ZIP Co de Phone Number [facility] [address] [place] [address] * Magnesium, Plasma (03/08/2025 6:15 AM EDT) Magnesium, Plasma 2.1 1.9 - 2.4 mg/dL 03/08/2025 7:03 AM EDT [facility] Blood Venous blood specimen / Unknown Venipuncture / Unknown 03/08/2025 6:15 AM EDT 03/08/2025 6:31 AM EDT us Harish Baer MD LAB BLOOD ORDERABLES Final Resu lt Performing Organization Address [facility]/ZIP Co de Phone Number [facility] [address] [place] [address] * (ABNORMAL) Comprehensive Metabolic Panel, Plasma (03/08/2025 6:15 AM EDT) Glucose, Plasma 156(H) 74 - 99 mg/dL 03/08/2025 7:03 AM EDT [facility] BUN, Plasma 33(H) 8 - 23 mg/dL 03/08/2025 7:03 AM EDT [facility] Creatinine, Plasma 3.18(H) 0.70 - 1.20 mg/dL 03/08/2025 7:03 AM EDT [facility] BUN/Creatinine Ratio 10 03/08/2025 7:03 AM EDT [facility] Sodium, Plasma 136 136 - 145 mmol/L 03/08/2025 7:03 AM EDT [facility] Potassium, Plasma 4.1 3.6 - 4.9 mmol/L 03/08/2025 7:03 AM EDT [facility] Chloride, Plasma 108(H) 97 - 107 mmol/L 03/08/2025 7:03 AM EDT [facility] CO2, Plasma 17(L) 22 - 29 mmol/L 03/08/2025 7:03 AM EDT [facility] Anion Gap 11 6 - 16 mmol/L 03/08/2025 7:03 AM EDT [facility] Total Calcium, Plasma 7.6(L) 8.9 - 10.2 mg/dL 03/08/2025 7:03 AM EDT [facility] Total Protein 4.3(L) 6.3 - 7.9 g/dL 03/08/2025 7:03 AM EDT [facility] Albumin, Plasma 1.9(L) 3.5 - 5.2 g/dL 03/08/2025 7:03 AM EDT [facility] AST, Plasma 22 10 - 50 U/L 03/08/2025 7:03 AM T [facility] Comment:Hemolyzed, result ma y be falsely increased. ALT, Plasma 9(L) 10 - 50 U/L 03/08/2025 7:03 AM EDT [facility] Alkaline Phosphatase, Plasma 91 40 - 115 U/L 03/08/2025 7:03 AM EDT [facility] Total Bilirubin, Plasma 0.3 0.2 - 1.1 mg/dL 03/08/2025 7:03 AM T [facility] eGFRcr 18.6 mL/min/1.7 3m*2 03/08/2025 7:03 AM EDT [facility] Comment:Reported eGFRcr in m L/min/1.73m2 is based the CKD-EPI 2020 equation that does not use a race coefficient. Blood Venous blood specimen / Unknown Venipuncture / Unknown 03/08/2025 6:15 AM EDT 03/08/2025 6:31 AM EDT us Harish Baer MD LAB BLOOD ORDERABLES Final Resu lt Performing Organization Address [facility] Co de Phone Number [facility] [address] [place] [address] * (ABNORMAL) D DIMER, QUANTITATIVE (03/08/2025 6:15 AM EDT) D Dimer, Quantitative 0.69(H) <0.50 ug/mL FEU LAB COAGULATION METHOD 03/08/2025 7:14 AM EDT [facility] Blood Venous blood specimen / Unknown Venipuncture / Unknown 03/08/2025 6:15 AM EDT 03/08/2025 6:30 AM EDT Narrative [facility] - 03/08/2025 7:14 AM EDT Test performed by STAGO D-dimer assay. Values greater than 0.50 ug/mL FEU should be evaluated for risk stratification of patients with possible venous thromboembolism. In addition to expected elevations following injury or surgery, D-dimer levels increase in normal and increase steadily with normal aging. Values in healthy individuals often exceed the VTE exclusion cutoff value, and should be considered in the clinical context. us Harish Baer MD LAB BLOOD ORDERABLES Final Resu lt Performing Organization Address [facility] de Phone Number [facility] [address] [place] [address] * Osmolality, Urine (03/07/2025 9:27 PM EDT) Pathologist [facility] Osmolality, Urine 402 50 - 1,200 mOsm/kg 03/07/2025 10:26 PM EDT [facility] Urine Urine specimen obtained by clean catch procedure / Unknown Non-blood Collection / Unknown 03/07/2025 9:27 PM EDT 03/07/2025 9:50 PM EDT us Harish Baer MD LAB URINE ORDERABLES Final Resu lt Performing Organization Address City/[facility]/ZIP Co de Phone Number [facility] [address] [place] [address] * Urea Nitrogen, Random Urine (03/07/2025 9:27 PM EDT) Urea Nitrogen, Urine 384 mg/dL 03/07/2025 11:10 PM EDT [facility] Urine Urine specimen obtained by clean catch procedure / Unknown Non-blood Collection / Unknown 03/07/2025 9:27 PM EDT 03/07/2025 9:50 PM EDT us Harish Baer MD LAB URINE ORDERABLES Final Resu lt Performing Organization Address [facility]/ZIP Co de Phone Number [facility] [address] [place] [address] * Chloride, Random Urine (03/07/2025 9:27 PM EDT) Chloride, Urine 46 mmol/L 11:10 PM EDT [facility] Urine Urine specimen obtained by clean catch procedure / Unknown Non-blood Collection / Unknown 03/07/2025 9:27 PM EDT 03/07/2025 9:50 PM EDT us Harish Baer MD LAB URINE ORDERABLES Final Resu lt Performing Organization Address [facility]/ZIP Co de Phone Number [facility] [address] [place] [address] * Sodium, Random, Urine (03/07/2025 9:27 PM EDT) Sodium, Urine 52 mmol/L 03/07/2025 11:10 PM EDT [facility] Urine Urine specimen obtained by clean catch procedure / Unknown Non-blood Collection / Unknown 03/07/2025 9:27 PM EDT 03/07/2025 9:50 PM EDT us Harish Baer MD LAB URINE ORDERABLES Final Resu lt Performing Organization Address City/[facility]/ZIP Co de Phone Number [facility] [address] [place] [address] * Protein, Random, Urine with Creatinine (03/07/2025 9:27 PM EDT) Protein, Urine 914 mg/dL 03/07/2025 11:34 PM EDT [facility] Creatinine, Urine 86 mg/dL 03/07/2025 11:34 PM EDT [facility] Protein/Creatin ine Ratio 10.6 mg/mg Creat 03/07/2025 11:34 PM EDT [facility] Urine Urine specimen obtained by clean catch procedure / Unknown Non-blood Collection / Unknown 03/07/2025 9:27 PM EDT 03/07/2025 9:50 PM EDT us Harish Baer MD LAB URINE ORDERABLES Final Resu lt Performing Organization Address City/[facility]/ZIP Co de Phone Number [facility] [address] [place] [address] * Potassium, Random, Urine (03/07/2025 9:27 PM EDT) Potassium, Urine 30 mmol/L 03/07/2025 11:10 PM EDT [facility] Urine Urine specimen obtained by clean catch procedure / Unknown Non-blood Collection / Unknown 03/07/2025 9:27 PM EDT 03/07/2025 9:50 PM EDT us Harish Baer MD LAB URINE ORDERABLES Final Resu lt [facility] [address] [place] [address] * (ABNORMAL) Albumin-creatinine ratio, urine, random (03/07/2025 9:27 PM EDT) Microalbumin, Urine >440.0(H) <1.9 mg/dL 03/07/2025 11:10 PM EDT [facility] Creatinine, Urine 86 mg/dL 03/07/2025 11:10 PM EDT [facility] Albumin/Creati nine Ratio 03/07/2025 11:10 PM EDT [facility] Comment:Unable to calculate, at least one value is above or below the detection limit. Urine Urine specimen obtained by clean catch procedure / Unknown Non-blood Collection / Unknown 03/07/2025 9:27 PM EDT 03/07/2025 9:50 PM EDT Harish Baer MD LAB URINE ORDERABLES Final Resu lt Performing Organization Address City/[facility]/ZIP Co de Phone Number [facility] [address] [place] [address] * (ABNORMAL) POCT glucose meter (03/07/2025 8:03 PM EDT) POCT Glucose 154(H) 74 - 99 mg/dL 03/07/2025 8:12 PM EDT [facility] Comment:Accuracy of a glucos e result obtained from a capillary whole blood specimen relies upon adequate, non-compromised capillary blood flow. If the capillary glucose result is not consistent with the patient's clinical signs and symptoms, glucose testing should be repeated with either an arterial or venous sample on the glucometer or sent to the main labortory for testing. Comment 03/07/2025 8:12 PM EDT [facility] Weather Anchor ID Maicol Zapata 8:12 PM EDT [facility] Device ID [id number] 03/07/2025 8:12 PM EDT [facility] Specimen Type POC Capillary 03/07/2025 8:12 PM EDT [facility] Blood Capillary blood specimen / Unknown 03/07/2025 8:03 PM EDT 03/07/2025 8:12 PM EDT us Harish Baer MD LAB POINT OF CARE TE ST DOCKED DEVICE UNSOLICITED RESULTS Final Result Performing Organization Address City/[facility] Co de Phone Number [facility] [address] [place] [address] * US Renal Complete (03/07/2025 7:11 PM EDT) Anatomical Region Laterality Modality Kidney Ultrasound Impressions 03/07/2025 7:19 PM EDT Increased parenchymal echogenicity suggesting medical renal disease. No hydronephrosis. Multiple bilateral renal cysts may suggest polycystic kidney disease. CRITICAL RESULT: No. COMMUNICATION: Per this written report. Drafted by Imelda Morales MD on 03/07/2025 7:17 PM Final report signed by Imelda Morales MD on 03/07/2025 7:19 PM Narrative 03/07/2025 7:19 PM EDT CLINICAL INDICATION: ROSA TECHNIQUE: Multiplanar static and cine heller scale ultrasound images of the kidneys and urinary bladder were obtained, accompanied by selective color Doppler ultrasound images. COMPARISON: None. FINDINGS: Right Kidney: Increased parenchymal echogenicity. Length 12.1 cm. No hydronephrosis, obvious calculi or discernible mass. Multiple renal cysts. Largest measures up to 4.3 cm. Left Kidney: Increased parenchymal echogenicity. Length 12.2 cm. No hydronephrosis, obvious calculi or discernible mass. Multiple renal cysts. Largest along the superior pole measures up to 5.7 cm. Urinary bladder: Distended urinary bladder without abnormality. Procedure Note Imelda Morales MD - 03/07/2025 CLINICAL INDICATION: ROSA TECHNIQUE: Multiplanar static and cine heller scale ultrasound images of the kidneysand urinary bladder were obtained, accompanied by selective color Dopplerultrasound images. COMPARISON: None. FINDINGS: Right Kidney: Increased parenchymal echogenicity. Length 12.1 cm. Nohydronephrosis, obvious calculi or discernible mass. Multiple renal cysts.Largest measures up to 4.3 cm. Left Kidney: Increased parenchymal echogenicity. Length 12.2 cm. Nohydronephrosis, obvious calculi or discernible mass. Multiple renal cysts.Largest along the superior pole measures up to 5.7 cm. Urinary bladder: Distended urinary bladder without abnormality. IMPRESSION: Increased parenchymal echogenicity suggesting medical renal disease. No hydronephrosis. Multiple bilateral renal cysts may suggest polycystic kidney disease. CRITICAL RESULT: No. COMMUNICATION: Per this written report. Drafted by Imelda Morales MD on 03/07/2025 7:17 PM Final report signed by Imelda Morales MD on 03/07/2025 7:19 PM Harish Baer MD IMG US PROCEDURES Final Result * (ABNORMAL) POCT glucose meter (03/07/2025 4:24 PM EDT) POCT Glucose 130(H) 74 - 99 mg/dL 03/07/2025 4:26 PM EDT [facility] Comment:Accuracy of a glucos e result obtained from a capillary whole blood specimen relies upon adequate, non-compromised capillary blood flow. If the capillary glucose result is not consistent with the patient's clinical signs and symptoms, glucose testing should be repeated with either an arterial or venous sample on the glucometer or sent to the main labortory for testing. Comment 03/07/2025 4:26 PM EDT [facility] Weather Anchor ID Vy Davey 03/07/2025 4:26 PM EDT [facility]ALTH[facility]ARE LAB Device ID [id number] 03/07/2025 4:26 PM EDT [facility] Specimen Type POC Capillary 03/07/2025 4:26 PM EDT [facility] Blood Capillary blood specimen / Unknown 03/07/2025 4:24 PM EDT 03/07/2025 4:26 PM EDT Harish Baer MD LAB POINT OF CARE TE ST DOCKED DEVICE UNSOLICITED RESULTS Final Result Performing Organization Address City/State/[facility] Co de Phone Number [facility] [address] [place], [place] [id number] * ECHO, ADULT TRANSTHORACIC COMPLETE (03/07/2025 1:13 PM EDT) [facility] Height 182 REILLY ISCV Weight 92.5 REILLY ISCV LVIDd 43 mm REILLY ISCV LVIDs 32 mm REILLY ISCV IVSd 10 mm REILLY ISCV LVPWd 8 mm REILYL ISCV LV MASS(C)D 123 g REILLY ISCV LV RWT 0.42 mm REILLY ISCV LVOT diam 23 mm REILLY ISCV LVOT AREA 4.2 cm2 REILLY ISCV LV V1 VTI 8.3 cm REILLY ISCV SV(LVOT) 34 mL REILLY ISCV LA dimension 40 mm REILLY ISCV RV s' Fernando 32.8 cm/s REILLY ISCV PA acc time 70 msec REILLY ISCV mean PAP 48 mmHg REILLY ISCV LV V1 Vmax 72.8 cm/s REILLY ISCV Ao V2 VTI 12.0 cm REILLY ISCV Ao mean PG 2 mmHg REILLY ISCV Ao V2 Vmax 95.8 cm/s REILLY ISCV Ao max PG 4 mmHg REILLY ISCV AV VTI Index 0.69 REILLY ISCV ADAIR(I,D) 2.9 cm2 REILLY ISCV Ao Root Diam 34 mm REILLY ISCV Asc Ao Diam 36 mm REILLY ISCV PA MI(ACCEL) 47.9 mmHg REILLY ISCV LV mean PG 1.0 mmHG REILLY ISCV LV V1 mean 50.4 cm/sec REILLY ISCV LV max PG 2.1 mmHg REILLY ISCV AV-pr VR 0.8 REILLY ISCV Ao V2 mean 69.1 cm/s REILLY ISCV TAPSE 11 mm REILLY ISCV RA MOD 4Ch 38 mL REILLY ISCV RV base 30 mm REILLY ISCV RV Mid 22 mm REILLY ISCV RV Length 63 mm REILLY ISCV LAV(MOD-4ch) 55 mL REILLY ISCV LAV(MOD-2ch) 48 mL REILLY ISCV Anatomical Region Laterality Modality Echocardiography Narrative 03/07/2025 3:40 PM EDT Frequent paroxysmal episodes of tachycardia (HR 150s-170s) during study. Left Ventricle: The left ventricle is normal size. There is normal left ventricular myocardial thickness and mass. The LVEF cannot be measured due to poor image quality but is grossly normal (>50%). Due to tachycardia, regional wall motion was not interpretable. Right Ventricle: The right ventricle is normal in size. The right ventricular systolic function is grossly normal. Pericardium: No pericardial effusion. There is no recent study available for direct [id number] comparison. Left Ventricle The left ventricle is normal size. There is normal left ventricular myocardial thickness and mass. The LVEF cannot be measured due to poor image quality but is grossly normal (>50%). Unable to assess diastolic function due to tachycardia and arrhythmia. Due to tachycardia, regional wall motion was not interpretable. Right Ventricle The right ventricle is normal in size. The right ventricular systolic function is grossly normal. The estimated global right ventricular systolic function based upon the TDI maximal systolic velocity is normal (>=9.5 cm/s). Unable to estimate the right ventricular systolic pressure (RVSP) due to inadequate TR signal. Left Atrium The left atrium is dilated by visual assessment. The interatrial septum is not well visualized. Right Atrium The right atrial volume index is normal (<30mL/m2). IVC/SVC Based on the IVC size and respiratory variation, the estimated right atrial pressure is 3mmHg. Mitral Valve There is mild mitral annular calcification. There is trace mitral regurgitation. There is no mitral stenosis. Tricuspid Valve The tricuspid valve is normal in appearance. There is trace tricuspid regurgitation. There is no tricuspid stenosis. Aortic Valve The aortic valve appears to be trileaflet. There is no valvular regurgitation. There is no hemodynamically significant valvular aortic stenosis. Pulmonic Valve The pulmonic valve was not well visualized. There is trace pulmonic regurgitation. There is no pulmonic stenosis. Pericardium No pericardial effusion. Great Vessels The aortic root is normal in size. The sinus of Valsalva (aortic root) diameter is 34 mm by leading edge to leading edge method. In the maximally visualized portion, the ascending aorta appears normal in size. The main pulmonary artery is normal in size. Study Details A complete transthoracic echocardiogram using two-dimensional (2D), m-mode, color and spectral flow Doppler imaging was performed. During the study the apical, parasternal, subcostal and suprasternal view was captured. Overall the study quality was adequate. The study was technically difficult due to patient's clinical status. Heart rate was tachycardic. Height: 182 cm. Weight: 92.5 kg. Study Recommendation There is no recent study available for direct [id number] comparison. Jason Quezada APRN CV ECHO PROCEDURES Final Resu lt * (ABNORMAL) POCT glucose meter (03/07/2025 11:01 AM EDT) POCT Glucose 126(H) 74 - 99 mg/dL 03/07/2025 11:03 AM EDT [facility] Comment:Accuracy of a glucos e result obtained from a capillary whole blood specimen relies upon adequate, non-compromised capillary blood flow. If the capillary glucose result is not consistent with the patient's clinical signs and symptoms, glucose testing should be repeated with either an arterial or venous sample on the glucometer or sent to the main labortory for testing. Comment 03/07/2025 11:03 AM EDT [facility] [employer] ID Shelley Rasmussen 03/07/2025 11:03 AM EDT [facility] Device ID [id number] 03/07/2025 11:03 AM EDT [facility] Specimen Type POC Capillary 03/07/2025 11:03 AM EDT [facility] Blood Capillary blood specimen / Unknown 03/07/2025 11:01 AM EDT 03/07/2025 11:03 AM EDT us Harish Baer MD LAB POINT OF CARE TE ST DOCKED DEVICE UNSOLICITED RESULTS Final Result Performing Organization Address City/[facility]/ZIP Co de Phone Number [facility] [address] [place] [address] * (ABNORMAL) POCT glucose meter (03/07/2025 7:11 AM EDT) POCT Glucose 154(H) 74 - 99 mg/dL 03/07/2025 7:12 AM EDT [facility] Comment:Accuracy of a glucos e result obtained from a capillary whole blood specimen relies upon adequate, non-compromised capillary blood flow. If the capillary glucose result is not consistent with the patient's clinical signs and symptoms, glucose testing should be repeated with either an arterial or venous sample on the glucometer or sent to the main labortory for testing. Comment 03/07/2025 7:12 AM EDT [facility] [employer] ID Shelley Rasmussen 03/07/2025 7:12 AM EDT [facility] Device ID [id number] 03/07/2025 7:12 AM EDT [facility] Specimen Type POC Capillary 03/07/2025 7:12 AM EDT [facility] Blood Capillary blood specimen / Unknown 03/07/2025 7:11 AM EDT 03/07/2025 7:12 AM EDT us Elgin Key MD LAB POINT OF CARE TE ST DOCKED DEVICE UNSOLICITED RESULTS Final Result Performing Organization Address City/[facility]/ZIP Co de Phone Number [facility] [address] [place] [address] * (ABNORMAL) Cystatin C (03/07/2025 4:43 AM EDT) Cystatin C 2.96(H) 0.61 - 0.95 mg/L 03/07/2025 5:42 PM EDT [facility] Blood Venous blood specimen / Unknown Venipuncture / Unknown 03/07/2025 4:43 AM EDT 03/07/2025 4:56 AM EDT us Harish Baer MD LAB BLOOD ORDERABLES Final Resu lt [facility] [address] [place] [address] * (ABNORMAL) Blood gas panel, venous (03/07/2025 4:43 AM EDT) pH, Venous 7.39 7.32 - 7.43 LAB HEMATOLOGY METHOD 03/07/2025 4:52 AM EDT [facility] pCO2, Venous 30(L) 40 - 55 mmHg LAB HEMATOLOGY METHOD 03/07/2025 4:52 AM EDT [facility] pO2, Venous 59(H) 25 - 40 mmHg LAB HEMATOLOGY METHOD 03/07/2025 4:52 AM EDT [facility] SO2, Measured, Venous 91(H) 65 - 80 % LAB HEMATOLOGY METHOD 03/07/2025 4:52 AM EDT [facility] Base Excess, Venous -6.1(L) -2.0 - 3.0 mmol/L LAB HEMATOLOGY METHOD 03/07/2025 4:52 AM EDT [facility] Bicarbonate, Calculated, Venous 18(L) 22 - 26 mmol/L LAB HEMATOLOGY METHOD 03/07/2025 4:52 AM EDT [facility] Hematocrit, Whole Blood 29.9(L) 40.0 - 51.0 % LAB HEMATOLOGY METHOD 03/07/2025 4:52 AM EDT [facility] Sodium, Whole Blood 136 136 - 145 mmol/L LAB HEMATOLOGY METHOD 03/07/2025 4:52 AM EDT [facility] Potassium, Whole Blood 4.0 3.6 - 4.9 mmol/L LAB HEMATOLOGY METHOD 03/07/2025 4:52 AM EDT [facility] Chloride, Whole Blood 111(H) 97 - 107 mmol/L LAB HEMATOLOGY METHOD 03/07/2025 4:52 AM EDT [facility] Glucose, Whole Blood 156(H) 74 - 99 mg/dL LAB HEMATOLOGY METHOD 03/07/2025 4:52 AM EDT [facility] Lactate, Venous, Whole Blood 0.9 0.5 - 2.2 mmol/L LAB HEMATOLOGY METHOD 03/07/2025 4:52 AM EDT [facility] Ionized Calcium, Whole Blood 4.4(L) 4.6 - 5.1 mg/dL LAB HEMATOLOGY METHOD 03/07/2025 4:52 AM EDT [facility] Blood Venous blood specimen / Unknown Venipuncture / Unknown 03/07/2025 4:43 AM EDT 03/07/2025 4:50 AM EDT us Jason Quezada APRN LAB BLOOD ORDERABLES Final Re sult Performing Organization Address [facility]/ZIP Co de Phone Number [facility] [address] [place] [address] * Folate, Serum (03/07/2025 4:43 AM EDT) Folate, Serum 6.1 >4.6 ng/mL 03/07/2025 5:39 AM EDT [facility] Blood Venous blood specimen / Unknown Venipuncture / Unknown 03/07/2025 4:43 AM EDT 03/07/2025 4:56 AM EDT us Jason Quezada APRN LAB BLOOD ORDERABLES Final Re sult Performing Organization Address [facility] Co de Phone Number [facility] [address] [place] [address] * Vitamin B12, Serum (03/07/2025 4:43 AM EDT) Vitamin B12, Serum 326 210 - 1,033 pg/mL 03/07/2025 5:41 AM EDT [facility] Blood Venous blood specimen / Unknown Venipuncture / Unknown 03/07/2025 4:43 AM EDT 03/07/2025 4:56 AM EDT us Jason Quezada APRN LAB BLOOD ORDERABLES Final Re sult [facility] [address] [place] [address] * (ABNORMAL) Prothrombin Time/INR (03/07/2025 4:43 AM EDT) Prothrombin Time 17.0(H) 12.0 - 14.3 sec 03/07/2025 5:05 AM EDT [facility] INR 1.4(H) 0.9 - 1.1 03/07/2025 5:05 AM EDT [facility] Blood Venous blood specimen / Unknown Venipuncture / Unknown 03/07/2025 4:43 AM EDT 03/07/2025 4:52 AM EDT Narrative [facility] - 03/07/2025 5:05 AM EDT OPTIMAL INR RANGES FOR PATIENT ON ORAL ANTICOAGULANT THERAPY Prevention of venous thromboembolism INR 2.0 to 3.0 In patients with heart disease: Atrial fibrillation INR 2.0 to 3.0 Valvular heart disease INR 2.0 to 3.0 Tissue heart valves INR 2.0 to 3.0 Mechanical prosthetic valves INR 2.5 to 3.5 Prevention of recurrent PA INR 2.5 to 3.5 us Jason Quezada APRN LAB BLOOD ORDERABLES Final Re sult Performing Organization Address City/[facility]/ZIP Co de Phone Number [facility] [address] [place] [address] * Magnesium, Plasma (03/07/2025 4:43 AM EDT) Magnesium, Plasma 2.2 1.9 - 2.4 mg/dL 03/07/2025 5:26 AM EDT [facility] Blood Venous blood specimen / Unknown Venipuncture / Unknown 03/07/2025 4:43 AM EDT 03/07/2025 4:56 AM EDT Jason Quezada [employer] LAB BLOOD ORDERABLES Final Re sult [facility] [address] [place] [address] * (ABNORMAL) Renal Function Panel, Plasma (03/07/2025 4:43 AM EDT) Glucose, Plasma 170(H) 74 - 99 mg/dL 03/07/2025 5:26 AM EDT [facility] BUN, Plasma 37(H) 8 - 23 mg/dL 03/07/2025 5:26 AM EDT [facility] Creatinine, Plasma 3.38(H) 0.70 - 1.20 mg/dL 03/07/2025 5:26 AM EDT [facility] BUN/Creatinine Ratio 11 03/07/2025 5:26 AM EDT [facility] Sodium, Plasma 140 136 - 145 mmol/L 03/07/2025 5:26 AM EDT [facility] Potassium, Plasma 4.3 3.6 - 4.9 mmol/L 03/07/2025 5:26 AM EDT [facility] Chloride, Plasma 111(H) 97 - 107 mmol/L 03/07/2025 5:26 AM EDT [facility] CO2, Plasma 16(L) 22 - 29 mmol/L 03/07/2025 5:26 AM EDT [facility] Anion Gap 13 6 - 16 mmol/L 03/07/2025 5:26 AM EDT [facility] Total Calcium, Plasma 7.6(L) 8.9 - 10.2 mg/dL 03/07/2025 5:26 AM EDT [facility] Phosphorus, Plasma 3.3 2.5 - 4.5 mg/dL 03/07/2025 5:26 AM EDT [facility] Albumin, Plasma 2.0(L) 3.5 - 5.2 g/dL 03/07/2025 5:26 AM EDT [facility] eGFRcr 17.3 mL/min/1.7 3m*2 03/07/2025 5:26 AM EDT [facility] Comment:Reported eGFRcr in m L/min/1.73m2 is based the CKD-EPI 2020 equation that does not use a race coefficient. Blood Venous blood specimen / Unknown Venipuncture / Unknown 03/07/2025 4:43 AM EDT 03/07/2025 4:56 AM EDT us Jason Quezada [employer] LAB BLOOD ORDERABLES Final Re sult [facility] [address] [place] [address] * (ABNORMAL) CBC W/O Differential (03/07/2025 4:43 AM EDT) WBC Count 4.53 3.70 - 10.30 10*3/uL LAB HEMATOLOGY METHOD 03/07/2025 4:55 AM EDT [facility] RBC Count 3.14(L) 4.60 - 6.10 10*6/uL LAB HEMATOLOGY METHOD 03/07/2025 4:55 AM EDT [facility] HGB 9.5(L) 13.7 - 17.5 g/dL LAB HEMATOLOGY METHOD 03/07/2025 4:55 AM EDT [facility] HCT 28.5(L) 40.0 - 51.0 % LAB HEMATOLOGY METHOD 03/07/2025 4:55 AM EDT [facility] Platelet Count 158 155 - 369 10*3/uL LAB HEMATOLOGY METHOD 03/07/2025 4:55 AM EDT [facility] MCV 91 79 - 98 fL LAB HEMATOLOGY METHOD 03/07/2025 4:55 AM EDT [facility] MCH 30.3 26.0 - 32.0 pg LAB HEMATOLOGY METHOD 03/07/2025 4:55 AM EDT [facility] MCHC 33.3 30.7 - 35.5 g/dL LAB HEMATOLOGY METHOD 03/07/2025 4:55 AM EDT [facility] RDW 13.3 11.5 - 14.5 % LAB HEMATOLOGY METHOD 03/07/2025 4:55 AM EDT [facility] MPV 10.1 8.8 - 12.5 fL LAB HEMATOLOGY METHOD 03/07/2025 4:55 AM EDT [facility] nRBC 0.0 <=0.0 per 100 WBCs LAB HEMATOLOGY METHOD 03/07/2025 4:55 AM EDT [facility] Blood Venous blood specimen / Unknown Venipuncture / Unknown 03/07/2025 4:43 AM EDT 03/07/2025 4:51 AM EDT Jason Quezada APRN LAB BLOOD ORDERABLES Final Re sult Performing Organization Address City/[facility]/ZIP Co de Phone Number [facility] [address] [place] [address] * Ferritin, Serum (03/07/2025 4:43 AM EDT) Ferritin, Serum 132 20 - 400 ng/mL 03/07/2025 5:41 AM EDT [facility] Blood Venous blood specimen / Unknown Venipuncture / Unknown 03/07/2025 4:43 AM EDT 03/07/2025 4:56 AM EDT Jason Quezada APRN LAB BLOOD ORDERABLES Final Re sult Performing Organization Address [facility] Co de Phone Number [facility] [address] [place] [address] * ECG Adult (03/07/2025 3:48 AM EDT) Pathologist [facility] EKG DIAGNOSIS CLASS Abnormal MUSE ECG Ventricular Rate 98 BPM MUSE ECG Atrial Rate 98 BPM MUSE ECG MI Interval 180 ms MUSE ECG QRSD Interval 84 ms MUSE ECG QT Interval 340 ms MUSE ECG QTC Interval 434 ms MUSE ECG P [place] 56 degrees MUSE ECG R [place] -43 degrees MUSE ECG T Wave [place] 63 degrees MUSE ECG Diagnosis Sinus rhythm with premature supraventricular complexes MUSE ECG Diagnosis Left axis deviation MUSE ECG Diagnosis Poor R-wave progression MUSE ECG Diagnosis Abnormal ECG MUSE ECG Diagnosis MUSE ECG Diagnosis Confirmed by Yoan Connors ([id number]) on 03/07/2025 5:41:06 AM MUSE ECG 03/07/2025 3:48 AM EDT 03/07/2025 5:41 AM EDT Jason Quezada APRN ECG ORDERABLES Final Result Performing Organization Address [facility] Co de Phone Number MUSE ECG * (ABNORMAL) POCT glucose meter (03/07/2025 2:08 AM EDT) POCT Glucose 132(H) 74 - 99 mg/dL 03/07/2025 2:09 AM EDT [facility] Comment:Accuracy of a glucos e result obtained from a capillary whole blood specimen relies upon adequate, non-compromised capillary blood flow. If the capillary glucose result is not consistent with the patient's clinical signs and symptoms, glucose testing should be repeated with either an arterial or venous sample on the glucometer or sent to the main labortory for testing. Comment 03/07/2025 2:09 AM EDT [facility] [employer] ID Jemal Angel 03/07/2025 2:09 AM EDT [facility] LAB Device ID [id number] 03/07/2025 2:09 AM EDT [facility] Specimen Type POC Capillary 03/07/2025 2:09 AM EDT [facility] Blood Capillary blood specimen / Unknown 03/07/2025 2:08 AM EDT 03/07/2025 2:09 AM EDT us Elgin Key MD LAB POINT OF CARE TE ST DOCKED DEVICE UNSOLICITED RESULTS Final Result Performing Organization Address [facility] Co de Phone Number [facility] [address] [place] [address] * Urinalysis Microscopic Examination (03/07/2025 2:00 AM EDT) Urine Urine specimen obtained by clean catch procedure / Unknown Non-blood Collection / Unknown 03/07/2025 2:00 AM EDT 03/07/2025 2:06 AM EDT us Jason Quezada APRN LAB URINE ORDERABLES Final Re sult Performing Organization Address City/[facility] Co de Phone Number [facility] [address] [place] [address] * Urea Nitrogen, Random Urine (03/07/2025 2:00 AM EDT) Urea Nitrogen, Urine 375 mg/dL 03/07/2025 2:59 AM EDT [facility] Urine Urine specimen obtained by clean catch procedure / Unknown Non-blood Collection / Unknown 03/07/2025 2:00 AM EDT 03/07/2025 2:16 AM EDT Jason Quezada [employer] LAB URINE ORDERABLES Final Re sult Performing Organization Address City/[facility]/ZIP Co de Phone Number [facility] [address] [place] [address] * Protein, Random, Urine with Creatinine (03/07/2025 2:00 AM EDT) Protein, Urine 843 mg/dL 03/07/2025 3:25 AM EDT [facility] Creatinine, Urine 82 mg/dL 03/07/2025 3:25 AM EDT [facility] Protein/Creatin ine Ratio 10.3 mg/mg Creat 03/07/2025 3:25 AM EDT [facility] Urine Urine specimen obtained by clean catch procedure / Unknown Non-blood Collection / Unknown 03/07/2025 2:00 AM EDT 03/07/2025 2:16 AM EDT Jason Quezada [employer] LAB URINE ORDERABLES Final Re sult Performing Organization Address City/[facility]/ZIP Co de Phone Number [facility] [address] [place] [address] * Sodium, Random, Urine (03/07/2025 2:00 AM EDT) Sodium, Urine 50 mmol/L 03/07/2025 3:05 AM EDT [facility] Urine Urine specimen obtained by clean catch procedure / Unknown Non-blood Collection / Unknown 03/07/2025 2:00 AM EDT 03/07/2025 2:16 AM EDT Jason uQezada [employer] LAB URINE ORDERABLES Final Re sult Performing Organization Address City/[facility]/ZIP Co de Phone Number [facility] [address] [place] [address] * (ABNORMAL) Urinalysis with reflex microscopic (Culture NOT Included) (03/07/2025 2:00 AM EDT) Color, Urine Yellow LAB URINALYSIS - AUTOMATED METHOD 03/07/2025 2:31 AM EDT [facility] Clarity, Urine Clear LAB URINALYSIS - AUTOMATED METHOD 03/07/2025 2:31 AM EDT [facility] Spec Stacy, Urine 1.023 1.005 - 1.030 LAB URINALYSIS - AUTOMATED METHOD 03/07/2025 2:31 AM EDT [facility] pH, Urine 6.5 5.0 - 8.0 LAB URINALYSIS - AUTOMATED METHOD 03/07/2025 2:31 AM EDT [facility] Protein, Urine >=300(A) Negative mg/dL LAB URINALYSIS - AUTOMATED METHOD 03/07/2025 2:31 AM EDT [facility] Glucose, Urine >=1000(A) Negative mg/dL LAB URINALYSIS - AUTOMATED METHOD 03/07/2025 2:31 AM EDT [facility] Ketones, Urine Negative Negative mg/dL LAB URINALYSIS - AUTOMATED METHOD 03/07/2025 2:31 AM EDT [facility] Blood, Urine Small(A) Negative LAB URINALYSIS - AUTOMATED METHOD 03/07/2025 2:31 AM EDT [facility] Bilirubin, Urine Negative Negative LAB URINALYSIS - AUTOMATED METHOD 03/07/2025 2:31 AM EDT [facility] Urobilinogen, Urine 0.2 0.2 to 1.0 mg/dL LAB URINALYSIS - AUTOMATED METHOD 03/07/2025 2:31 AM T [facility] Leukocytes, Urine Negative Negative LAB URINALYSIS - AUTOMATED METHOD 03/07/2025 2:31 AM T [facility] Nitrite, Urine Negative Negative LAB URINALYSIS - AUTOMATED METHOD 03/07/2025 2:31 AM EDT [facility] RBC, Urine 3 0 to 3 /HPF LAB URINALYSIS - AUTOMATED METHOD 03/07/2025 2:31 AM EDT [facility] Comment:This result was prev iously suppressed from the chart. WBC, Urine 0 - 5 0 to 5 /HPF LAB URINALYSIS - AUTOMATED METHOD 03/07/2025 2:31 AM EDT [facility] Comment:This result was prev iously suppressed from the chart. Squamous Epithelial Cells 0 - 2 0 to 5 /HPF LAB URINALYSIS - AUTOMATED METHOD 03/07/2025 2:31 AM EDT [facility] Comment:This result was prev iously suppressed from the chart. Hyaline Casts 0 - 2 0 to 5 /LPF LAB URINALYSIS - AUTOMATED METHOD 03/07/2025 2:31 AM EDT [facility] Comment:This result was prev iously suppressed from the chart. Bacteria, Urine Negative Negative LAB URINALYSIS - AUTOMATED METHOD 03/07/2025 2:31 AM EDT [facility] Comment:This result was prev iously suppressed from the chart. Urine Urine specimen obtained by clean catch procedure / Unknown Non-blood Collection / Unknown 03/07/2025 2:00 AM EDT 03/07/2025 2:06 AM EDT us Jason Quezada [employer] LAB URINE ORDERABLES Final Re sult [facility] [address] [place] [address] * Drug Abuse Screen, Urine (03/07/2025 2:00 AM EDT) Amphetamine Screen Urine Negative Cutoff: 500 ng/mL 03/07/2025 2:48 AM EDT [facility] Benzodiazepines Screen Urine Negative Cutoff: 200 ng/mL 03/07/2025 2:48 AM EDT [facility] Cannabinoid Screen Urine Negative Cutoff: 50 ng/mL 03/07/2025 2:48 AM EDT [facility] Cocaine Screen Urine Negative Cutoff: 300 ng/mL 03/07/2025 2:48 AM EDT [facility] Barbiturate Screen Urine Negative Cutoff: 200 ng/mL 03/07/2025 2:48 AM EDT [facility] Opiate Screen Urine Negative Cutoff: 300 ng/mL 03/07/2025 2:48 AM EDT [facility] Methadone Screen Urine Negative Cutoff: 300 ng/mL 03/07/2025 2:48 AM EDT [facility] Buprenorphine Screen Urine Negative Cutoff: 10 ng/mL 03/07/2025 2:48 AM EDT [facility] Fentanyl Screen Urine Negative Cutoff: 1 ng/mL 03/07/2025 2:48 AM EDT [facility] Oxycodone Screen Urine Negative Cutoff: 100 ng/mL 03/07/2025 2:48 AM EDT [facility] Urine Urine specimen obtained by clean catch procedure / Unknown Non-blood Collection / Unknown 03/07/2025 2:00 AM EDT 03/07/2025 2:16 AM EDT us Jason Quezada APRN LAB URINE ORDERABLES Final Re sult Performing Organization Address [facility] Co de Phone Number [facility] [address] [place] [address] * SARS CoV-2/COVID-19 by PCR - Rapid (03/07/2025 12:12 AM EDT) [facility] SARS CoV-2/COVID-1 9 RNA PCR Result Not Detected Not Detected 03/07/2025 1:54 AM EDT [facility] Swab Nasopharyngeal structure / Unknown Non-blood Collection / Unknown 03/07/2025 12:12 AM EDT 03/07/2025 1:00 AM EDT Narrative [facility] - 03/07/2025 1:54 AM EDT This test is FDA approved for use with nasopharyngeal specimens in [employer] (VTM). This test is used for clinical purposes. It should not be regarded as investigational or for research. This laboratory is certified under the Clinical Laboratory improvement Amendments of 1988 (CLIA-88 as qualified to perform high complexity clinical laboratory testing. This test was performed on the Xpert Xpress SARS CoV-2 Plus assay test, a PCR- based method. Negative results should be considered presumptive and do not preclude current or future infection obtained through community transmission or other exposures. Negative results must be considered in the context of an individual's recent exposures, history, presence of clinical signs and symptoms consistent with COVID-19. us Ariella Chapman MD LAB MICROBIOLOGY - GENERAL ORDERABLES Final Result Performing Organization Address [facility] Co de Phone Number [facility] [address] [place] [address] * Nasopharyngeal Respiratory Panel (03/07/2025 12:12 AM EDT) [facility] Nasopharyngeal Respiratory PCR Interpretation Not Detected for all analytes Not Detected for all analytes 03/07/2025 3:04 AM EDT [facility] Swab Nasopharyngeal structure / Unknown Non-blood Collection / Unknown 03/07/2025 12:12 AM EDT 03/07/2025 1:00 AM EDT Narrative [facility] - 03/07/2025 3:04 AM EDT This assay can detect Adenovirus, Coronavirus, Human Metapneumovirus, Human Rhino/Enterovirus, Influenza A, Influenza A H1, Influenza A H1 2009, Influenza A H3, Influenza B, Parainfluenza Virus 1, Parainfluenza Virus 2, Parainfluenza Virus 3, Parainfluenza Virus 4, Respiratory Syncytial Virus A, Respiratory Syncytial Virus B, Chlamydia pneumoniae, and Mycoplasma pneumoniae. Note: This assay does NOT detect SARS/CoV, novel Coronavirus 2019-nCoV, Bordetella pertussis or Bordetella parapertussis. Nasopharyngeal Respiratory PCR Panel is performed using the [facility] [employer] instrument. This test is FDA approved for use with Nasopharyngeal swabs only. This test is used for clinical purposes. It should not be regarded as investigational or for research. [facility] Clinical Microbiology Laboratory is certified under the Clinical Laboratory Improvement Amendments of 1988 (CLIA-88) as qualified to perform high complexity clinical laboratory testing. Ariella Chapman MD LAB MICROBIOLOGY - GENERAL ORDERABLES Final Result [facility] [address] [id number] * (ABNORMAL) Troponin T, High Sensitivity, 2 Hour, Plasma (03/06/2025 10:05 PM EDT) Troponin T, High Sensitivity, 2 Hour 70(H) <19 ng/L 03/06/2025 10:31 PM EDT [facility] Troponin Delta 6 <10 ng/L 03/06/2025 10:31 PM EDT [facility] Troponin Delta Interpretation Not Significant 03/06/2025 10:31 PM EDT [facility] Comment:Not Significant. No acute change in troponin observed between the baseline and 2 hour samples. Blood Venous blood specimen / Unknown Venipuncture / Unknown 03/06/2025 10:05 PM EDT 03/06/2025 10:11 PM EDT Nabor Tam MD LAB BLOOD ORDERABLES Final Resul t Performing Organization Address [facility] de Phone Number [facility] [address] [place] [address] * (ABNORMAL) Anti Xa Level Unfractionated Heparin (03/06/2025 8:26 PM EDT) Anti Xa Level Unfractionated Heparin >1.10(HH) <1.00 IU/mL 03/06/2025 8:41 PM EDT [facility] Blood Venous blood specimen / Unknown Venipuncture / Unknown 03/06/2025 8:26 PM EDT 03/06/2025 8:27 PM EDT Narrative [facility] - 03/06/2025 8:41 PM EDT Therapeutic Range: UFH Full Dose and ACS/PA protocols*: 0.30 - 0.70 IU/mL UFH Low Dose protocol*: 0.25 - 0.50 IU/mL UFH prophylaxis: Not established Nabor Tam MD LAB BLOOD ORDERABLES Final Resul t Performing Organization Address [facility] de Phone Number [facility] [address] [place] [address] * XR Chest 1 View (03/06/2025 8:04 PM EDT) Anatomical Region Laterality Modality Chest Digital Radiogra phy Impressions 03/06/2025 8:53 PM EDT No acute focal airspace consolidation. Mild prominence/thickening of the superior right paratracheal stripe, nonspecific. If clinical concern for mass or additional abnormality consider follow-up CT. CRITICAL RESULT: No. COMMUNICATION: Per this written report. Drafted by Brennan Palacios MD on 03/06/2025 8:51 PM Final report signed by Brennan Palacios MD on 03/06/2025 8:53 PM Narrative 03/06/2025 8:53 PM EDT CLINICAL INDICATION: chest pain TECHNIQUE: XR CHEST 1 VIEW COMPARISON: None. FINDINGS: No acute focal airspace consolidation. No pneumothorax. Skinfold left inferior lateral hemithorax. No significant cardiomegaly. Mild prominence/thickening of the superior right paratracheal stripe, nonspecific. If clinical concern for mass or additional abnormality consider follow-up CT. No acute osseous abnormality. Procedure Note Brennan Palacios MD - 03/06/2025 CLINICAL INDICATION: chest pain TECHNIQUE: XR CHEST 1 VIEW COMPARISON: None. FINDINGS: No acute focal airspace consolidation. No pneumothorax. Skinfold leftinferior lateral hemithorax. No significant cardiomegaly. Mildprominence/thickening of the superior right paratracheal stripe,nonspecific. If clinical concern for mass or additional abnormalityconsider follow-up CT. No acute osseous abnormality. IMPRESSION: No acute focal airspace consolidation. Mild prominence/thickening of thesuperior right paratracheal stripe, nonspecific. If clinical concern formass or additional abnormality consider follow-up CT. CRITICAL RESULT: No. COMMUNICATION: Per this written report. Drafted by Brennan Palacios MD on 03/06/2025 8:51 PM Final report signed by Brennan Palacios MD on 03/06/2025 8:53 PM Nabor Tam MD IMG XR PROCEDURES Final Result * (ABNORMAL) Iron & Total Iron Binding Capacity, Plasma (Includes Transferrin) (03/06/2025 7:57 PM EDT) Iron, Plasma 39(L) 50 - 170 ug/dL 03/07/2025 2:27 AM EDT [facility] Transferrin, Plasma 133(L) 200 - 360 mg/dL 03/07/2025 2:27 AM EDT [facility] Total Iron Binding Capacity, Plasma 166(L) 240 - 450 ug/mL 03/07/2025 2:27 AM EDT [facility] Transferrin Saturation 23 14 - 50 % 03/07/2025 2:27 AM EDT [facility] Blood Venous blood specimen / Unknown Venipuncture / Unknown 03/06/2025 7:57 PM EDT 03/06/2025 8:02 PM EDT us Jason Quezada [employer] LAB BLOOD ORDERABLES Final Re sult [facility] [address] [place] [address] * (ABNORMAL) Hemoglobin A1c (03/06/2025 7:57 PM EDT) Hemoglobin A1c 9.3(H) <5.7 % 03/07/2025 12:02 PM EDT [facility] Blood Venous blood specimen / Unknown Venipuncture / Unknown 03/06/2025 7:57 PM EDT 03/06/2025 8:02 PM EDT Narrative [facility] - 03/07/2025 12:02 PM EDT HA1C Interpretive Data: Diagnosis of Diabetes: Diabetic > or = 6.5% Pre-diabetic 5.7 to 6.4% Non-diabetic < or = 5.6% Glycemic Targets for Type I and Type II Diabetics: Non- Adults <7.0% Adults <6.0% Children and Adolescents <7.5% Source: [place] [employer]. Standards of medical care in diabetes,2017. Diabetes Care.2017:40 (suppl 1):S1-S135. Jason Quezada [employer] LAB BLOOD ORDERABLES Final Re sult Performing Organization Address [facility] Co de Phone Number [facility] [address] [place] [address] * Phosphorus, Plasma (03/06/2025 7:57 PM EDT) Phosphorus, Plasma 3.2 2.5 - 4.5 mg/dL 03/07/2025 12:25 AM EDT [facility] Blood Venous blood specimen / Unknown Venipuncture / Unknown 03/06/2025 7:57 PM EDT 03/06/2025 8:02 PM EDT Jason Quezada [employer] LAB BLOOD ORDERABLES Final Re sult Performing Organization Address City/[facility]/ZIP Co de Phone Number [facility] [address] [place] [address] * (ABNORMAL) BNP (03/06/2025 7:57 PM EDT) N-Terminal, PROBNP, Plasma 2,403(H) 0 - 1,799 pg/mL 03/06/2025 8:38 PM EDT [facility] Blood Venous blood specimen / Unknown Venipuncture / Unknown 03/06/2025 7:57 PM EDT 03/06/2025 8:02 PM EDT us Nabor Tam MD LAB BLOOD ORDERABLES Final Resul t Performing Organization Address City/[facility]/ZIP Co de Phone Number [facility] [address] [place] [address] * Free T4, Plasma (03/06/2025 7:57 PM EDT) Free T4, Plasma 1.2 0.8 - 1.7 ng/dL 03/06/2025 8:35 PM EDT [facility] Blood Venous blood specimen / Unknown Venipuncture / Unknown 03/06/2025 7:57 PM EDT 03/06/2025 8:02 PM EDT us Nabor Tam MD LAB BLOOD ORDERABLES Final Resul t Performing Organization Address [facility]/[place] [address] * Thyroid Stimulating Hormone, Plasma (03/06/2025 7:57 PM EDT) Thyroid Stimulating Hormone, Plasma 0.96 0.40 - 4.20 uIU/mL 03/06/2025 8:38 PM EDT [facility] Blood Venous blood specimen / Unknown Venipuncture / Unknown 03/06/2025 7:57 PM EDT 03/06/2025 8:02 PM EDT us Nabor Tam MD LAB BLOOD ORDERABLES Final Resul t Performing Organization Address City/[facility]/ZIP Co de Phone Number [facility] [address] [place] [address] * (ABNORMAL) Troponin now and 120 min (03/06/2025 7:57 PM EDT) Troponin T, High Sensitivity, 0 Hour 76(H) <19 ng/L 03/06/2025 8:35 PM EDT [facility] Blood Venous blood specimen / Unknown Venipuncture / Unknown 03/06/2025 7:57 PM EDT 03/06/2025 8:02 PM EDT us Nabor Tam MD LAB BLOOD ORDERABLES Final Resul t Performing Organization Address City/[facility]/ZIP Co de Phone Number [facility] [address] [place] [address] * Lactic acid, venous (03/06/2025 7:57 PM EDT) [facility] Lactate, Venous, Whole Blood 2.2 0.5 - 2.2 mmol/L LAB HEMATOLOGY METHOD 03/06/2025 8:04 PM EDT [facility] Blood Venous blood specimen / Unknown Venipuncture / Unknown 03/06/2025 7:57 PM EDT 03/06/2025 8:03 PM EDT us Nabor Tam MD LAB BLOOD ORDERABLES Final Resul t Performing Organization Address [facility] Co de Phone Number [facility] [address] [place] [address] * Lipase (03/06/2025 7:57 PM EDT) [facility] Lipase, Plasma 28 19 - 63 U/L 03/06/2025 8:38 PM EDT [facility] Blood Venous blood specimen / Unknown Venipuncture / Unknown 03/06/2025 7:57 PM EDT 03/06/2025 8:02 PM EDT us Nabor Tam MD LAB BLOOD ORDERABLES Final Resul t Performing Organization Address City/[facility] Co de Phone Number [facility] [address] [place] [address] * (ABNORMAL) Magnesium (03/06/2025 7:57 PM EDT) Magnesium, Plasma 1.8(L) 1.9 - 2.4 mg/dL 03/06/2025 8:38 PM EDT [facility] Blood Venous blood specimen / Unknown Venipuncture / Unknown 03/06/2025 7:57 PM EDT 03/06/2025 8:02 PM EDT us Nabor Tam MD LAB BLOOD ORDERABLES Final Resul t [facility] [address] [place] [address] * (ABNORMAL) CMP (03/06/2025 7:57 PM EDT) Glucose, Plasma 180(H) 74 - 99 mg/dL 03/06/2025 8:38 PM EDT [facility] BUN, Plasma 38(H) 8 - 23 mg/dL 03/06/2025 8:38 PM EDT [facility] Creatinine, Plasma 3.62(H) 0.70 - 1.20 mg/dL 03/06/2025 8:38 PM EDT [facility] BUN/Creatinine Ratio 10 03/06/2025 8:38 PM EDT [facility] Sodium, Plasma 138 136 - 145 mmol/L 03/06/2025 8:38 PM EDT [facility] Potassium, Plasma 4.7 3.6 - 4.9 mmol/L 03/06/2025 8:38 PM EDT [facility] Chloride, Plasma 108(H) 97 - 107 mmol/L 03/06/2025 8:38 PM EDT [facility] CO2, Plasma 15(L) 22 - 29 mmol/L 03/06/2025 8:38 PM EDT [facility] Anion Gap 15 6 - 16 mmol/L 03/06/2025 8:38 PM EDT [facility] Total Calcium, Plasma 8.1(L) 8.9 - 10.2 mg/dL 03/06/2025 8:38 PM EDT [facility] Total Protein 5.2(L) 6.3 - 7.9 g/dL 03/06/2025 8:38 PM EDT [facility] Albumin, Plasma 2.4(L) 3.5 - 5.2 g/dL 03/06/2025 8:38 PM EDT [facility] AST, Plasma 21 10 - 50 U/L 03/06/2025 8:38 PM EDT [facility] Comment:Hemolyzed, result ma y be falsely increased. ALT, Plasma 11 10 - 50 U/L 03/06/2025 8:38 PM EDT [facility] Alkaline Phosphatase, Plasma 124(H) 40 - 115 U/L 03/06/2025 8:38 PM EDT [facility] Total Bilirubin, Plasma 0.3 0.2 - 1.1 mg/dL 03/06/2025 8:38 PM EDT [facility] eGFRcr 15.9 mL/min/1.7 3m*2 03/06/2025 8:38 PM EDT [facility] Comment:Reported eGFRcr in m L/min/1.73m2 is based the CKD-EPI 2020 equation that does not use a race coefficient. Blood Venous blood specimen / Unknown Venipuncture / Unknown 03/06/2025 7:57 PM EDT 03/06/2025 8:02 PM EDT us Nabor Tam MD LAB BLOOD ORDERABLES Final Resul t [facility] [address] [place] [address] * (ABNORMAL) PT-INR (03/06/2025 7:57 PM EDT) Prothrombin Time 17.9(H) 12.0 - 14.3 sec 03/06/2025 8:16 PM EDT [facility] INR 1.5(H) 0.9 - 1.1 03/06/2025 8:16 PM EDT [facility] Blood Venous blood specimen / Unknown Venipuncture / Unknown 03/06/2025 7:57 PM EDT 03/06/2025 8:02 PM EDT Narrative [facility] - 03/06/2025 8:16 PM EDT OPTIMAL INR RANGES FOR PATIENT ON ORAL ANTICOAGULANT THERAPY Prevention of venous thromboembolism INR 2.0 to 3.0 In patients with heart disease: Atrial fibrillation INR 2.0 to 3.0 Valvular heart disease INR 2.0 to 3.0 Tissue heart valves INR 2.0 to 3.0 Mechanical prosthetic valves INR 2.5 to 3.5 Prevention of recurrent PA INR 2.5 to 3.5 us Nabor Tam MD LAB BLOOD ORDERABLES Final Resul t [facility] [address] [place] [address] * (ABNORMAL) CBC w/diff (03/06/2025 7:57 PM EDT) WBC Count 6.29 3.70 - 10.30 10*3/uL LAB HEMATOLOGY METHOD 03/06/2025 8:05 PM EDT [facility] RBC Count 3.78(L) 4.60 - 6.10 10*6/uL LAB HEMATOLOGY METHOD 03/06/2025 8:05 PM EDT [facility] HGB 11.3(L) 13.7 - 17.5 g/dL LAB HEMATOLOGY METHOD 03/06/2025 8:05 PM EDT [facility] HCT 34.7(L) 40.0 - 51.0 % LAB HEMATOLOGY METHOD 03/06/2025 8:05 PM EDT [facility] Platelet Count 198 155 - 369 10*3/uL LAB HEMATOLOGY METHOD 03/06/2025 8:05 PM EDT [facility] MCV 92 79 - 98 fL LAB HEMATOLOGY METHOD 03/06/2025 8:05 PM EDT [facility] MCH 29.9 26.0 - 32.0 pg LAB HEMATOLOGY METHOD 03/06/2025 8:05 PM EDT [facility] MCHC 32.6 30.7 - 35.5 g/dL LAB HEMATOLOGY METHOD 03/06/2025 8:05 PM EDT [facility] RDW 13.2 11.5 - 14.5 % LAB HEMATOLOGY METHOD 03/06/2025 8:05 PM EDT [facility] MPV 10.0 8.8 - 12.5 fL LAB HEMATOLOGY METHOD 03/06/2025 8:05 PM EDT [facility] nRBC 0.0 <=0.0 per 100 WBCs LAB HEMATOLOGY METHOD 03/06/2025 8:05 PM EDT [facility] Differential Type Automated LAB HEMATOLOGY METHOD 03/06/2025 8:05 PM EDT [facility] Neutrophils % 67 % LAB HEMATOLOGY METHOD 03/06/2025 8:05 PM EDT [facility] Lymphocytes % 18 % LAB HEMATOLOGY METHOD 03/06/2025 8:05 PM EDT [facility] Monocytes % 12 % LAB HEMATOLOGY METHOD 03/06/2025 8:05 PM EDT [facility] Eosinophils % 1 % LAB HEMATOLOGY METHOD 03/06/2025 8:05 PM EDT [facility] Basophils % 1 % LAB HEMATOLOGY METHOD 03/06/2025 8:05 PM EDT [facility] Immature Granulocytes % 1 % LAB HEMATOLOGY METHOD 03/06/2025 8:05 PM EDT [facility] Neutrophils Absolute 4.23 1.60 - 6.10 10*3/uL LAB HEMATOLOGY METHOD 03/06/2025 8:05 PM EDT [facility] Lymphocytes Absolute 1.13(L) 1.20 - 3.90 10*3/uL LAB HEMATOLOGY METHOD 03/06/2025 8:05 PM EDT [facility] Monocytes Absolute 0.78 0.30 - 0.90 10*3/uL LAB HEMATOLOGY METHOD 03/06/2025 8:05 PM EDT [facility] Eosinophils Absolute 0.07 0.00 - 0.50 10*3/uL LAB HEMATOLOGY METHOD 03/06/2025 8:05 PM EDT [facility] Basophils Absolute 0.03 0.00 - 0.10 10*3/uL LAB HEMATOLOGY METHOD 03/06/2025 8:05 PM EDT [facility] Immature Granulocytes Absolute 0.05 0.00 - 0.06 10*3/uL LAB HEMATOLOGY METHOD 03/06/2025 8:05 PM EDT [facility] Blood Venous blood specimen / Unknown Venipuncture / Unknown 03/06/2025 7:57 PM EDT 03/06/2025 8:02 PM EDT [facility] - 03/06/2025 8:05 PM EDT Therapeutic decision making should be based on absolute values, rather than percentages. us Nabor Tam MD LAB BLOOD ORDERABLES Final Resul t [facility] [address] [place] [address] * (ABNORMAL) POCT arterial blood gas gem (03/06/2025 7:48 PM EDT) pH, Arterial 7.31 7.31 - 7.42 03/06/2025 7:50 PM EDT [facility] pCO2, Arterial 31(L) 32 - 45 mm Hg 03/06/2025 7:50 PM EDT [facility] pO2, Arterial 30(LL) >60 mm Hg 03/06/2025 7:50 PM EDT [facility] SO2, Arterial 55(L) 94 - 98 % 03/06/2025 7:50 PM EDT [facility] FIO2 100.0 % 03/06/2025 7:50 PM EDT [facility] Base Excess, Arterial -9.5(L) -2 - 3 mmol/L 03/06/2025 7:50 PM EDT [facility] HCO3, Arterial 15.6(L) 22 - 26 mmol/L 03/06/2025 7:50 PM EDT [facility] Total Hemoglobin, Arterial, Whole Blood 12.9(L) 13.7 - 17.5 g/dL 03/06/2025 7:50 PM EDT [facility] Hematocrit, Arterial 39.0(L) 40 - 51.0 % 03/06/2025 7:50 PM EDT [facility] Sodium, Arterial 134(L) 136 - 145 mmol/L 03/06/2025 7:50 PM EDT [facility] Potassium, Arterial 4.3 3.6 - 4.9 mmol/L 03/06/2025 7:50 PM EDT [facility] Comment:Hemolyzed, result ma y be falsely increased. Chloride, Whole Blood 107 97 - 107 mmol/L 03/06/2025 7:50 PM EDT [facility] Glucose, Arterial 178(H) 74 - 99 mg/dL 03/06/2025 7:50 PM EDT [facility] Ionized Calcium, Arterial 4.5(L) 4.6 - 5.1 mg/dL 03/06/2025 7:50 PM EDT [facility] Lactate, Arterial 2.3(H) 0.5 - 1.6 mmol/L 03/06/2025 7:50 PM EDT [facility] Body Temperature 37.0 Celsius 03/06/2025 7:50 PM EDT [facility] pH, Temp Corrected, Arterial 7.31 7.31 - 7.42 03/06/2025 7:50 PM EDT [facility] pCO2, Temp Corrected, Arterial 31(L) 32 - 45 mm Hg 03/06/2025 7:50 PM EDT [facility] pO2, Temp Corrected, Arterial 30(LL) >60 mm Hg 03/06/2025 7:50 PM EDT [facility] Weather Anchor ID Robina Álvarez 03/06/2025 7:50 PM EDT [facility] Acknowledged, Notified By RN [id number] 03/06/2025 7:50 PM EDT [facility] Critical Notify Time 194803/06/2025 7:50 PM EDT [facility] Critical Readback Y 03/06/2025 7:50 PM EDT [facility] Blood, Arterial Whole blood specimen / Unknown 03/06/2025 7:48 PM EDT 03/06/2025 7:50 PM EDT us Nabor Tam MD LAB POINT OF CARE TE ST DOCKED DEVICE UNSOLICITED RESULTS Final Result Performing Organization Address City/State/[facility] Co de Phone Number [facility] [address] [place] [address] * ECG Adult (03/06/2025 7:47 PM EDT) EKG DIAGNOSIS CLASS Abnormal MUSE ECG Ventricular Rate 107 BPM MUSE ECG Atrial Rate 107 BPM MUSE ECG MI Interval 168 ms MUSE ECG QRSD Interval 80 ms MUSE ECG QT Interval 320 ms MUSE ECG QTC Interval 427 ms MUSE ECG P [place] 60 degrees MUSE ECG R [place] -38 degrees MUSE ECG T Wave [place] 75 degrees MUSE ECG Diagnosis Poor data quality, interpretation may be adversely affected MUSE ECG Diagnosis Poor data quality MUSE ECG Diagnosis Sinus tachycardia with occasional premature ventricular complexes MUSE ECG Diagnosis Left axis deviation MUSE ECG Diagnosis STT changes vs. artifact MUSE ECG Diagnosis Abnormal ECG MUSE ECG Diagnosis Recommend repeat ECG MUSE ECG Diagnosis MUSE ECG Diagnosis Confirmed by Yoan Connors ([id number]) on 03/06/2025 9:08:27 PM MUSE ECG 03/06/2025 7:47 PM EDT 03/06/2025 9:08 PM EDT us Nabor Tam MD ECG ORDERABLES Final Result MUSE ECG * Light Green Top (03/06/2025 7:47 PM EDT) Extra Hold for add-ons 03/06/2025 11:01 PM EDT [facility] Comment:Auto resulted. Blood Venous blood specimen / Unknown 03/06/2025 7:47 PM EDT 03/06/2025 8:02 PM EDT us Nabor Tam MD LAB BLOOD ORDERABLES Final Resul t [facility] [address] [place] [address] * EKG now - STAT (adult) (03/06/2025 7:31 PM EDT) EKG DIAGNOSIS CLASS Abnormal MUSE ECG Ventricular Rate 182 BPM MUSE ECG QRSD Interval 76 ms MUSE ECG QT Interval 252 ms MUSE ECG QTC Interval 438 ms MUSE ECG R [place] -18 degrees MUSE ECG T Wave [place] 118 degrees MUSE ECG Diagnosis Poor data quality, interpretation may be adversely affected MUSE ECG Diagnosis Supraventricular tachycardia MUSE ECG Diagnosis Left ventricular hypertrophy ( R in aVL ) MUSE ECG Diagnosis ST abnormality and T wave abnormality, consider lateral ischemia MUSE ECG Diagnosis Abnormal ECG MUSE ECG Diagnosis MUSE ECG Diagnosis Confirmed by Yoan Connors ([id number]) on 03/06/2025 9:04:52 PM MUSE ECG 03/06/2025 7:31 PM EDT 03/06/2025 9:04 PM EDT us Nabor Tam MD ECG ORDERABLES Final Result MUSE ECG * MI CRITICAL CARE, E/M 30-74 MINUTES (03/06/2025 7:17 PM EDT) Narrative Nabor Tam MD - 03/06/2025 7:17 PM EDT Nabor Tam MD 03/09/2025 11:05 AM Critical Care Performed by: Nabor Tam MD Authorized by: Ariella Chapman MD Critical care provider statement: Critical care time (minutes): 31 Critical care time was exclusive of: Separately billable procedures and treating other patients and teaching time Critical care was time spent personally by me on the following activities: Development of treatment plan with patient or surrogate, discussions with consultants, evaluation of patient's response to treatment, examination of patient, obtaining history from patient or surrogate, ordering and performing treatments and interventions, ordering and review of laboratory studies, ordering and review of radiographic studies and review of old charts I assumed subsequent critical care for this patient from a provider in my division, on the same day: no Critical care statement: I saw and evaluated the patient with the resident/ fellow. I discussed the case with the resident/ fellow and agree with the findings and plan as documented. us Ariella Chapman MD IN CLINIC/BEDSIDE ORDERABLE S Final Result documented in this encounter Visit Diagnoses Diagnosis ROSA (acute kidney injury)- Primary SVT (supraventricular tachycardia) (CMS/[facility]) Other specified cardiac dysrhythmias ROSA (acute kidney injury) CHF (congestive heart failure) Congestive heart failure, unspecified Debility Unspecified debility Metabolic acidosis Acidosis Former cigarette smoker Personal history of tobacco use, presenting hazards to health Hx pulmonary embolism Mixed hyperlipidemia Primary hypertension Unspecified essential hypertension 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 Normocytic anemia Unspecified anemia Hypomagnesemia Disorders of magnesium metabolism documented in this encounter Admitting Diagnoses Diagnosis Acute kidney injury superimposed on CKD ROSA (acute kidney injury) documented in this encounter Administered Medications Inactive Administered Medications - up to 3 most recent administrations Medication Order MAR Action Action Date Dose Rate Site acetaminophen (Tylenol) tablet 650 mg 650 mg, Oral, Every 8 hours PRN, Starting on 03/07/25 at 0111, Until Kirsten 03/10/25 at 1907, Routine, Mild + Pain > or =1: CPOT, DVPRS, FLACC, PAINAD, NPASS, NRS, Ashley-Brown Faces; > or =2: NIPS Given 03/07/2025 9:13 PM EDT 650 mg apixaban (Eliquis) tablet 5 mg 5 mg, Oral, 2 times daily, First dose on Fri03/09/25 at 2100, Until Discontinued, Routine Given 03/10/2025 10:45 AM EDT 5 mg Given 03/09/2025 9:19 PM EDT 5 mg atorvastatin (Lipitor) tablet 10 mg 10 mg, Oral, Nightly, First dose on Fri03/07/25 at 2100, Until Discontinued, Routine Given 03/09/2025 9:20 PM EDT 10 mg Given 03/08/2025 8:08 PM EDT 10 mg Given 03/07/2025 9:12 PM EDT 10 mg carvedilol (Coreg) tablet 25 mg 25 mg, Oral, 2 times daily, First dose on Fri03/07/25 at 2100, Until Discontinued, Routine Given 03/10/2025 10:4 5 AM EDT 25 mg Given 03/09/2025 9:19 PM EDT 25 mg Given 03/09/2025 9:17 AM EDT 25 mg dextrose 10 % (D10W) bolus 125 mL 125 mL, Intravenous, Every 15 min PRN, Starting on Fri03/07/25 at 0110, Until Kirsten 03/10/25 at 1907, Administer over 15 Minutes, Routine, low blood sugar BG 51-89 mg/dL dextrose 10 % (D10W) bolus 250 mL 250 mL, Intravenous, Every 15 min PRN, Starting on Fri03/07/25 at 0110, Until Kirsten 03/10/25 at 1907, Administer over 15 Minutes, Routine, PRN low blood sugar BG =/<50 mg/dL fenofibrate (Tricor) tablet 145 mg 145 mg, Oral, Daily, First dose on Fri03/07/25 at 0900, Until Discontinued, Routine Given 03/09/2025 9:17 AM EDT 145 mg Given 03/08/2025 9:01 AM EDT 145 mg Given 03/07/2025 8:15 AM EDT 145 mg glucagon (human recombinant) injection 1 mg 1 mg, Intramuscular, Every 15 min PRN, Starting on Fri03/07/25 at 0110, Until Kirsten 10/2/25 at 1907, Routine, low blood sugar per Hypoglycemia Prevention and Treatment protocol glucose (Glutose) 40 % oral gel 15-30 grams of glucose 15-30 grams of glucose, Sublingual, Every 15 min PRN, Starting on Fri03/07/25 at 0110, Until Kirsten 03/10/25 at 1907, Routine, low blood sugar, per Hypoglycemia Prevention and Treatment protocol insulin glargine-yfgn 100 UNIT/ML injection 5 Units 5 Units, Subcutaneous, Nightly, First dose on Fri03/09/25 at 2100, Until Discontinued, Routine Given 03/09/2025 9:20 PM EDT 5 Units Left Upper Arm (Back ) insulin lispro (Admelog) 100 units/mL injection - Correction - Standard Dose 0-5 Units, Subcutaneous, 3 times daily with meals, First dose on Fri03/07/25 at 0830, Until Discontinued, Routine Given 03/09/2025 5:37 PM EDT 2 Units Left Lower Abdomen Given 03/09/2025 1:18 PM EDT 2 Units Le ft Lower Abdomen Given 03/09/2025 9:16 AM EDT 1 Units Le ft Lower Abdomen insulin lispro (Admelog) injection - Correction - Nighttime Dose 0-3 Units, Subcutaneous, 2 times nightly (2100 & 0300), First dose on Fri03/07/25 at 0300, Until Discontinued, Routine Given 03/08/2025 8:19 PM EDT 1 Units Left Upper Arm (Back) lactated Ringer's bolus 250 mL 250 mL, Intravenous, Once, 1 dose, On Fri03/07/25 at 0120, Administer over 2 Hours, STAT New Bag 03/07/2025 2:02 AM EDT 250 mL 125 mL/hr magnesium sulfate IVPB 2 g 2 g, Intravenous, Once, 1 dose, On 03/06/25 at 2245, STAT New Bag 03/06/2025 10:55 PM EDT 2 g 50 mL/hr melatonin tablet 3 mg 3 mg, Oral, Nightly PRN, Starting on Fri03/07/25 at 0111, Until Kirsten 03/10/25 at 1907, Routine, sleep Given 03/07/2025 9:12 PM EDT 3 mg pantoprazole (Protonix) EC tablet 40 mg 40 mg, Oral, Daily, First dose on Fri03/07/25 at 0900, Until Discontinued, Routine Given 03/10/2025 10:45 AM EDT 40 mg Given 03/09/2025 9:17 AM EDT 40 mg Given 03/08/2025 8:59 AM EDT 40 mg rivaroxaban (Xarelto) tablet 15 mg 15 mg, Oral, Daily with dinner, First dose on Fri03/07/25 at 1800, Until Discontinued, Routine Given 03/08/2025 6:14 PM EDT 15 mg Given 03/07/2025 5:29 PM EDT 15 mg sodium bicarbonate 150 mEq in dextrose 5 % 1,000 mL infusion 125 mL/hr, Intravenous, Continuous, Starting on Fri03/07/25 at 1650, Until Fri03/08/25 at 0129, Routine New Bag 03/07/2025 5:30 PM EDT 125 mL/hr 125 mL /hr sodium bicarbonate 150 mEq in dextrose 5 % 1,000 mL infusion 125 mL/hr, Intravenous, Continuous, Starting on Fri03/08/25 at 1245, Until Fri03/08/25 at 2058, Routine New Bag 03/08/2025 12:59 PM EDT 125 mL/hr 125 m L/hr sodium bicarbonate tablet 1,300 mg 1,300 mg, Oral, Once, 1 dose, On Fri03/07/25 at 0200, Routine Given 03/07/2025 2:02 AM EDT 1,300 mg sodium bicarbonate tablet 650 mg 650 mg, Oral, 4 times daily, First dose on Fri03/09/25 at 1800, Until Discontinued, Routine Given 03/10/2025 1:41 PM EDT 650 mg Given 03/10/2025 10:44 AM EDT 650 mg Given 03/09/2025 9:19 PM EDT 650 mg sodium chloride 0.9 % flush 10 mL 10 mL, Intravenous, Every 12 hours, First dose on Fri03/07/25 at 0120, Until Discontinued, Routine Given 03/10/2025 2:04 PM EDT 10 mL Given 03/09/2025 1:20 PM EDT 10 mL Given 03/08/2025 8:09 PM EDT 10 mL sodium chloride 0.9 % flush 10 mL 10 mL, Intravenous, As needed, Starting on Fri03/07/25 at 0107, Until Kirsten 03/10/25 at 1907, Routine, line care tamsulosin (Flomax) 24 hr capsule 0.4 mg 0.4 mg, Oral, Daily with dinner, First dose on Fri03/08/25 at 1800, Until Discontinued, Routine Given 03/09/2025 5:36 PM EDT 0.4 mg Given 03/08/2025 6:14 PM EDT 0.4 mg Umeclidinium-Vilanterol (Anoro) 62.5-25 MCG/ACT aerosol powder 1 Inhalation 1 Inhalation, Inhalation, Daily, First dose on Fri03/08/25 at 1530, Until Discontinued, Routine Given 03/10/2025 10:48 AM EDT 1 Inhalation Given 03/09/2025 9:37 AM EDT 1 Inhalation Given 03/08/2025 6:14 PM EDT 1 Inhalation documented in this encounter Active and Recently Administered Medications Times are shown in EDT. Scheduled Medication Order 03/08/2025 03/09/2025 03/10/2025 apixaban (Eliquis) tablet 5 mg 5 mg, Oral, 2 times daily, First dose on Fri03/09/25 at 2100, Until Discontinued, Routine 2118 (Given - Provider: Alondra Quiros) 104 (Given - Provider: Angie Knight) atorvastatin (Lipitor) tablet 10 mg 10 mg, Oral, Nightly, First dose on Fri03/07/25 at 2100, Until Discontinued, Routine 2007 (Given - Provider: Alondra Quiros) 2119 (Given - Provider: Alondra Quiros) carvedilol (Coreg) tablet 25 mg 25 mg, Oral, 2 times daily, First dose on Fri03/07/25 at 2100, Until Discontinued, Routine 858 (Given - Provider: Gwen Gongora RN)2007 (Given - Provider: Alondra Quiros) 916 (Given - Provider: Gwen Gongora RN)2118 (Given - Provider: Alondra Quiros) 104 (Given - Provider: Angie Knight) fenofibrate (Tricor) tablet 145 mg (CANCELED) 145 mg, Oral, Daily, First dose on Fri03/07/25 at 0900, Until Discontinued, Routine 900 (Given - Provider: Gwen Gongora RN) 0917 (Given - Provider: Gwen Gongora RN) insulin glargine-yfgn 100 UNIT/ML injection 5 Units 5 Units, Subcutaneous, Nightly, First dose on Fri03/09/25 at 2100, Until Discontinued, Routine 2120 (Given - Provider: Alondra Quiros) insulin lispro (Admelog) 100 units/mL injection - Correction - Standard Dose 0-5 Units, Subcutaneous, 3 times daily with meals, First dose on Fri03/07/25 at 0830, Until Discontinued, Routine 0859 (Given - Provider: Gwen Gongora RN)1259 (Given - Provider: Gwen Gongora, JASS)1814 (Given - Provider: Gwen Gongora RN) 0916 (Given - Provider: Gwen Gongora RN)1318 (Given - Provider: Gwen Gongora RN)1737 (Given - Provider: Gwen Gongora RN) 1048 (Not Given - Provider: Angie Knight - Reason: Order parameters not met)1156 (Not Given - Provider: Angie Knight - Reason: Order parameters not met)1730 (Canceled Entry - Provider: Automatic Discharge Provider - Comment: Automatically canceled at discontinue of medication order) insulin lispro (Admelog) injection - Correction - Nighttime Dose 0-3 Units, Subcutaneous, 2 times nightly (2100 & 0300), First dose on Fri03/07/25 at 0300, Until Discontinued, Routine 0213 (Not Given - Provider: Jorge Thomas RN - Reason: See Provider Order)2019 (Given - Provider: Alondra Quiros) 0357 (Not Given - Provider: Alondra Quiros - Reason: Order parameters not met)210 (Not Given - Provider: Alondra Quiros - Reason: Order parameters not met) 0210 (Not Given - Provider: Alondra Quiros - Reason: Order parameters not met) pantoprazole (Protonix) EC tablet 40 mg 40 mg, Oral, Daily, First dose on Fri03/07/25 at 0900, Until Discontinued, Routine 0859 (Given - Provider: Gwen Gongora RN) 0917 (Given - Provider: Gwen Gongora RN) 1045 (Given - Provider: Angie Knight) rivaroxaban (Xarelto) tablet 15 mg (CANCELED) 15 mg, Oral, Daily with dinner, First dose on Fri03/07/25 at 1800, Until Discontinued, Routine 181 (Given - Provider: Gwen Gongora RN) sodium bicarbonate tablet 650 mg 650 mg, Oral, 4 times daily, First dose on Fri03/09/25 at 1800, Until Discontinued, Routine 1737 (Given - Provider: Gwen Gongora RN)2119 (Given - Provider: Alondra Quiros) 1044 (Given - Provider: Angie Knight)1341 (Given - Provider: Angie Knight)1800 (Canceled Entry - Provider: Automatic Discharge Provider - Comment: Automatically canceled at discontinue of medication order) sodium chloride 0.9 % flush 10 mL(Linked Group 1) 10 mL, Intravenous, Every 12 hours, First dose on Fri03/07/25 at 0120, Until Discontinued, Routine 012 (Given - Provider: Jorge Thomas RN)1251 (Given - Provider: Gwen Gongora RN)2009 (Given - Provider: Alondra Quiros) 1320 (Given - Provider: Gwen Gongora RN) 0029 (Canceled Entry - Provider: Alondra Quiros)1404 (Given - Provider: Angie Knight) tamsulosin (Flomax) 24 hr capsule 0.4 mg 0.4 mg, Oral, Daily with dinner, First dose on Fri03/08/25 at 1800, Until Discontinued, Routine 181 (Given - Provider: Gwen Gongora RN) 1736 (Given - Provider: Gwen Gongora RN) 1800 (Canceled Entry - Provider: Automatic Discharge Provider - Comment: Automatically canceled at discontinue of medication order) Umeclidinium-Vilantero l (Anoro) 62.5-25 MCG/ACT aerosol powder 1 Inhalation 1 Inhalation, Inhalation, Daily, First dose on Fri03/08/25 at 1530, Until Discontinued, Routine 181 (Given - Provider: Gwen Gongora RN) 0937 (Given - Provider: Gwen Gongora RN) 1048 (Given - Provider: Angie Knight) Continuous Medication Order 03/08/2025 03/09/2025 03/10/2025 sodium bicarbonate 150 mEq in dextrose 5 % 1,000 mL infusion () 125 mL/hr, Intravenous, Continuous, Starting on Fri03/08/25 at 1245, Until Fri03/08/25 at 2058, Routine 1259 (New Bag - Provider: Gwen Gongora RN) PRN Medication Order 03/08/2025 03/09/2025 03/10/2025 acetaminophen (Tylenol) tablet 650 mg 650 mg, Oral, Every 8 hours PRN, Starting on Fri03/07/25 at 0111, Until Kirsten 03/10/25 at 1907, Routine, Mild + Pain > or =1: CPOT, DVPRS, FLACC, PAINAD, NPASS, NRS, Ashley-Brown Faces; > or =2: NIPS dextrose 10 % (D10W) bolus 125 mL(Linked Group 2) 125 mL, Intravenous, Every 15 min PRN, Starting on Fri03/07/25 at 0110, Until Kirsten 03/10/25 at 1907, Administer over 15 Minutes, Routine, low blood sugar BG 51-89 mg/dL dextrose 10 % (D10W) bolus 250 mL(Linked Group 2) 250 mL, Intravenous, Every 15 min PRN, Starting on Fri03/07/25 at 0110, Until Kirsten 03/10/25 at 1907, Administer over 15 Minutes, Routine, PRN low blood sugar BG =/<50 mg/dL glucagon (human recombinant) injection 1 mg(Linked Group 2) 1 mg, Intramuscular, Every 15 min PRN, Starting on Fri03/07/25 at 0110, Until Kirsten 03/10/25 at 1907, Routine, low blood sugar per Hypoglycemia Prevention and Treatment protocol glucose (Glutose) 40 % oral gel 15-30 grams of glucose(Linked Group 2) 15-30 grams of glucose, Sublingual, Every 15 min PRN, Starting on Fri03/07/25 at 0110, Until Kirsten 03/10/25 at 1907, Routine, low blood sugar, per Hypoglycemia Prevention and Treatment protocol ipratropium-albuterol (Duo-Neb) 0.5-2.5 mg/3 mL nebulizer solution 3 mL 3 mL, Nebulization, Every 6 hours PRN, Starting on Fri03/07/25 at 0110, Until Kirsten 03/10/25 at 1907, Routine, wheezing, shortness of breath melatonin tablet 3 mg 3 mg, Oral, Nightly PRN, Starting on Fri03/07/25 at 0111, Until Kirsten 03/10/25 at 1907, Routine, sleep polyethylene glycol (Miralax) packet 17 g 17 g, Oral, Daily PRN, Starting on Fri03/07/25 at 0111, Until Kirsten 03/10/25 at 190, Routine, constipation sodium chloride 0.9 % flush 10 mL(Linked Group 1) 10 mL, Intravenous, As needed, Starting on Fri03/07/25 at 0107, Until Fri03/10/25 at 190, Routine, line care Linked Groups Order Group 1: Insert peripheral IV (CANCELED) Once, On Fri03/07/25 at 0108, For 1 occurrence And Saline lock IV (CANCELED) Once, On Fri03/07/25 at 0108, For 1 occurrence And sodium chloride 0.9 % flush 10 mLJump to med 10 mL, Intravenous, Every 12 hours, First dose on Fri03/07/25 at 0120, Until Discontinued, Routine And sodium chloride 0.9 % flush 10 mLJump to med 10 mL, Intravenous, As needed, Starting on Fri03/07/25 at 0107, Until Kirsten 03/10/25 at 190, Routine, line care Group 2: glucose (Glutose) 40 % oral gel 15-30 grams of glucoseJump to med 15-30 grams of glucose, Sublingual, Every 15 min PRN, Starting on Fri03/07/25 at 0110, Until Kirsten 03/10/25 at 1907, Routine, low blood sugar, per Hypoglycemia Prevention and Treatment protocol Or dextrose 10 % (D10W) bolus 125 mLJump to med 125 mL, Intravenous, Every 15 min PRN, Starting on Fri03/07/25 at 0110, Until Kirsten 03/10/25 at 1907, Administer over 15 Minutes, Routine, low blood sugar BG 51-89 mg/dL Or dextrose 10 % (D10W) bolus 250 mLJump to med 250 mL, Intravenous, Every 15 min PRN, Starting on 03/07/25 at 0110, Until Kirsten 03/10/25 at 1907, Administer over 15 Minutes, Routine, PRN low blood sugar BG =/<50 mg/dL Or glucagon (human recombinant) injection 1 mgJump to med 1 mg, Intramuscular, Every 15 min PRN, Starting on 03/07/25 at 0110, Until Kirsten 03/10/25 at 1907, Routine, low blood sugar per Hypoglycemia Prevention and Treatment protocol documented in this encounter Additional Health Concerns Infection Onset Date Last Indicated Resolved Time COVID-19 Rule-Out 03/06/2025 03/06/2025 03/07/2025 1:54 AM EDT Respiratory Rule-Out 03/06/2025 03/07/2025 025 3:04 AM EDT Assessment Noted Time A Body Mass Index follow-up plan has been documented for the patient 03/10/2025 3:20 PM EDT documented as of this encounter Care Teams [employer] Relationship Specialty Start Date End Date Pcp, Kourtney [address] [place] [address] PCP - General Family Medicine 03/06/25 documented as of this encounter
--- NOTE | 2025-04-28 11:00 | CA_ITS ---
FINAL REPORT TECHNIQUE: Ultrasound images of the deep venous system were obtained from the left groin to the calf veins. CLINICAL HISTORY: S/p Right iliac vein access 04/21/25 for Cordella implant, H/o Previous DVT on Xarellto therapy FINDINGS: The deep venous system is normally compressible. Normal flow is identified. IMPRESSION: No evidence of left lower extremity DVT. Reviewed, Interpreted and Dictated by Eagle Winters MD Transcribed by Stefanie Nazario Authenticated and [facility]
--- OUTSIDE RECORDS SUMMARY | 2025-04-28 12:49 | XMS_ITS | Continuity of Care Document ---
Author Organization Formerly [facility], [facility] Address [address] [place] [address] Assessment Encounter Date Assessment Date Assessment LastModified by Organization Details LastModified Time 03/24/2025 03/24/2025 -Medications were reviewed and any necessary updates and renewals were made, patient instructed to complete as prescribed. -The potential side effects of medications were discussed. -Counseling was done on care goals and ways to prevent future hospitalizatio ns. -Further treatment per orders listed below. Not available 03/24/2025 13:08:38 Plan of Treatment Reminders Order Date Submit Date Provider Last Modified By Organization Details Last Modified Time Details Appointments Medicare AWE 40mins 2024 01:50P M Giovanni Glass MD Not available Not available Not available [facility]LISH ED PT 30 2025 11:30A M Marcelina Longo APRN Not available Not available Not available Lab None recorded. Referral physical therapist referral 2024 [facility], [address], [place], [address], 03/31/2025 15:11:09 Procedures None recorded. Surgeries None recorded. Imaging None recorded. Medication Orders fexofenad ine 180 mg tablet 2024 025 [facility], [address] [place], [place], [id number], 03/24/2025 17:39:04 furosemid e 40 mg tablet 2024 025 [facility], [address] , [place], [place], [id number], 03/24/2025 14:13:36 Patient TargetsNo targets recorded. Patient Instructions Encounter Date Encounter Id Patient Instructions Last Modified By Organization Details Last Modified Time 03/24/2025 [id number] When You Want to Lose Weight: Care Instructions [email or web address] Not available 03/24/2025 15:58:18 Reason for Referral Physical Therapist Referral for Weakness of bilateral lower limb Referring Physician: Giovanni Glass, Family Medicine, Encounter Date: 03/24/2025 Results Created Date Observation Date Name Description Value Unit Range Abnormal Flag Note LastModifiedBy Organization Detail LastModifiedTime 03/04/2003/05/2025 CBC WITH DIFFE RENTI AL/PL ATELE T WBC 7.2 x10e3 /uL 3.4-10 .8 normal Not Available [facility] ([facility]) [address] [place], [address], 03/05/2025 06:17:27 03/04/20 25 03/05/2025 CBC WITH DIFFE RENTI AL/PL ATELE T RBC 4.10 x10e6 /uL 4.14-5 .80 below low normal Not Available [facility] ([facility]) [address] [place], [address], 03/05/2025 06:17:27 03/04/2003/05/2025 CBC WITH DIFFE RENTI AL/PL ATELE T hemoglobin 12.3 g/dL 13.0-1 7.7 below low normal Not Available [facility] ([facility]) [address] [place], [address], 03/05/2025 06:17:27 03/04/20 25 03/05/2025 CBC WITH DIFFE RENTI AL/PL ATELE T hematocrit 38.0 % 37.5-5 1.0 normal Not Available [facility] ([facility]) [address] [place], [address], 03/05/2025 06:17:27 03/04/2003/05/2025 CBC WITH DIFFE RENTI AL/PL ATELE T MCV 93 fL 79-97 normal Not Available [facility] ([facility]) [address] [facility], [place], [address], 03/05/2025 06:17:27 03/04/2003/05/2025 CBC WITH DIFFE RENTI AL/PL ATELE T MCH 30.0 pg 26.6-3 3.0 normal Not Available [facility] ([facility]) [address] [facility], [place], [address], 03/05/2025 06:17:27 03/04/2003/05/2025 CBC WITH DIFFE RENTI AL/PL ATELE T MCHC 32.4 g/dL 31.5-3 5.7 normal Not Available [facility] ([facility]) [address] [facility], [place], [address], 03/05/2025 06:17:27 03/04/2003/05/2025 CBC WITH DIFFE RENTI AL/PL ATELE T RDW 12.4 % 11.6-1 5.4 Not Available [facility] ([facility]) [address] [place], [address], 03/05/2025 06:17:27 03/04/2003/05/2025 CBC WITH DIFFE RENTI AL/PL ATELE T platelets 233 x10e3 /uL 150-45 0 normal Not Available [facility] ([facility]) [address] [facility], [place], [address], 03/05/2025 06:17:27 03/04/2003/05/2025 CBC WITH DIFFE RENTI AL/PL ATELE T neutrophils 67 % not estab. normal Not Available [facility] ([facility]) [address] [place], [address], 03/05/2025 06:17:27 03/04/20 25 03/05/2025 CBC WITH DIFFE RENTI AL/PL ATELE T lymphs 18 % not estab. normal Not Available [facility] ([facility]) [address] [facility], [place], [address], 03/05/2025 06:17:27 03/04/2003/05/2025 CBC WITH DIFFE RENTI AL/PL ATELE T monocytes 11 % not estab. normal Not Available [facility] ([facility]) [address] [facility], [place], [address], 03/05/2025 06:17:27 03/04/2003/05/2025 CBC WITH DIFFE RENTI AL/PL ATELE T eos 3 % not estab. normal Not Available [facility] ([facility]) [address] [place], [address], 03/05/2025 06:17:27 03/04/2003/05/2025 CBC WITH DIFFE RENTI AL/PL ATELE T basos 0 % not estab. normal Not Available [facility] ([facility]) [address] [place], [address], 03/05/2025 06:17:27 03/04/2003/05/2025 CBC WITH DIFFE RENTI AL/PL ATELE T immature cells LENS GENERATING MACHINE TENDER Not Available [facility] ([facility]) [address] [place], [address], 03/05/2025 06:17:27 03/04/2003/05/2025 CBC WITH DIFFE RENTI AL/PL ATELE T neutrophils (absolute) 4.8 x10e3 /uL 1.4-7. 0 normal Not Available [facility] ([facility]) [address] [place], [address], 03/05/2025 06:17:27 03/04/2003/05/2025 CBC WITH DIFFE RENTI AL/PL ATELE T lymphs (absolute) 1.3 x10e3 /uL 0.7-3. 1 normal Not Available [facility] ([facility]) [address] [facility], [place], [address], 03/05/2025 06:17:27 03/04/20 25 03/05/2025 CBC WITH DIFFE RENTI AL/PL ATELE T monocytes(ab solute) 0.8 x10e3 /uL 0.1-0. 9 normal Not Available [facility] ([facility]) [address] [facility], [place], [address], 03/05/2025 06:17:27 03/04/2003/05/2025 CBC WITH DIFFE RENTI AL/PL ATELE T eos (absolute) 0.2 x10e3 /uL 0.0-0. 4 normal Not Available [facility] ([facility]) [address] [place], [address], 03/05/2025 06:17:27 03/04/20 25 03/05/2025 CBC WITH DIFFE RENTI AL/PL ATELE T baso (absolute) 0.0 x10e3 /uL 0.0-0. 2 normal Not Available [facility] ([facility]) [address] [place], [address], 03/05/2025 06:17:27 03/04/2003/05/2025 CBC WITH DIFFE RENTI AL/PL ATELE T immature granulocytes 1 % not estab. Not Available [facility] ([facility]) [address] [place], [address], 03/05/2025 06:17:27 03/04/2003/05/2025 CBC WITH DIFFE RENTI AL/PL ATELE T immature grans (abs) 0.1 x10e3 /uL 0.0-0. 1 Not Available [facility] ([facility]) [address] [place], [address], 03/05/2025 06:17:27 03/04/20 25 03/05/2025 CBC WITH DIFFE RENTI AL/PL ATELE T NRBC LENS GENERATING MACHINE TENDER Not Available [facility] ([facility]) [address] [facility], [place], [address], 03/05/2025 06:17:27 03/04/20 25 03/05/2025 CBC WITH DIFFE RENTI AL/PL ATELE T hematology comments: LENS GENERATING MACHINE TENDER Not Available [facility] ([facility]) [address] [facility], [place], [address], 03/05/2025 06:17:27 03/04/20 25 03/05/2025 BASIC METAB OLIC PANEL (8) glucose 150 mg/dL 70-99 above high normal Not Available [facility] ([facility]) [address] [place], [address], 03/05/2025 06:17:27 03/04/20 25 03/05/2025 BASIC METAB OLIC PANEL (8) BUN 42 mg/dL 8-27 above high normal Not Available [facility] ([facility]) [address] [place], [address], 03/05/2025 06:17:27 03/04/20 25 03/05/2025 BASIC METAB OLIC PANEL (8) creatinine 3.49 mg/dL 0.76-1 .27 above high normal Not Available [facility] ([facility]) [address] [place], [address], 03/05/2025 06:17:27 03/04/2003/05/2025 BASIC METAB OLIC PANEL (8) eGFR 17 mL/mi n/1.7 3 >59 below low normal Not Available [facility] ([facility]) [address] [place], [address], 03/05/2025 06:17:27 03/04/20 25 03/05/2025 BASIC METAB OLIC PANEL (8) BUN/creatini ne ratio 12 10-24 normal Not Available [facility] ([facility]) [address] [place], [address], 03/05/2025 06:17:27 03/04/2003/05/2025 BASIC METAB OLIC PANEL (8) sodium 136 mmol/ L 134-14 4 normal Not Available [facility] ([facility]) [address] [place], [address], 03/05/2025 06:17:27 03/04/2003/05/2025 BASIC METAB OLIC PANEL (8) potassium 4.7 mmol/ L 3.5-5. 2 normal Not Available [facility] ([facility]) [address] [place], [address], 03/05/2025 06:17:27 03/04/2003/05/2025 BASIC METAB OLIC PANEL (8) chloride 105 mmol/ L 96-106 normal Not Available [facility] ([facility]) [address] [place], [address], 03/05/2025 06:17:27 03/04/2003/05/2025 BASIC METAB OLIC PANEL (8) carbon dioxide, total 13 mmol/ L 20-29 below low normal Speci men quant ity insuf ficie nt for verif icati on by repea t luisito sis. Not Available [facility] ([facility]) [address] [place], [address], 03/05/2025 06:17:27 03/04/2003/05/2025 BASIC METAB OLIC PANEL (8) calcium 8.3 mg/dL 8.6-10 .2 below low normal Not Available [facility] ([facility]) [address] [place], [address], 03/05/2025 06:17:27 03/24/20 25 03/25/2025 BMP7+ EGFR glucose 193 mg/dL 70-99 above high normal Not Available [facility] ([facility]) [address] [place], [address], 03/25/2025 11:14:10 03/24/2003/25/2025 BMP7+ EGFR BUN 27 mg/dL 8-27 normal Not Available [facility] ([facility]) [address] [place], [address], 03/25/2025 11:14:10 03/24/2003/25/2025 BMP7+ EGFR creatinine 2.75 mg/dL 0.76-1 .27 above high normal Not Available [facility] ([facility]) [address] [place], [address], 03/25/2025 11:14:10 03/24/2003/25/2025 BMP7+ EGFR eGFR 22 mL/mi n/1.7 3 >59 below low normal Not Available [facility] ([facility]) [address] [place], [address], 03/25/2025 11:14:10 03/24/2003/25/2025 BMP7+ EGFR sodium 142 mmol/ L 134-14 4 normal Not Available [facility] ([facility]) [address] [place], [address], 03/25/2025 11:14:10 03/24/2003/25/2025 BMP7+ EGFR potassium 4.8 mmol/ L 3.5-5. 2 normal Not Available [facility] ([facility]) [address] [place], [address], 03/25/2025 11:14:10 03/24/2003/25/2025 BMP7+ EGFR chloride 111 mmol/ L 96-106 above high normal Not Available [facility] ([facility]) [address] [place], [address], 03/25/2025 11:14:10 03/24/2003/25/2025 BMP7+ EGFR carbon dioxide, total 17 mmol/ L 20-29 below low normal Not Available [facility] ([facility]) [address] [facility], [place], [address], 03/25/2025 11:14:10 03/24/20 25 03/25/2025 CBC WITH DIFFE RENTI AL/PL ATELE T WBC 4.8 x10e3 /uL 3.4-10 .8 normal Not Available [facility] ([facility]) [address] [facility], [place], [address], 03/25/2025 11:14:11 03/24/2003/25/2025 CBC WITH DIFFE RENTI AL/PL ATELE T RBC 3.30 x10e6 /uL 4.14-5 .80 below low normal Not Available [facility] ([facility]) [address] [facility], [place], [address], 03/25/2025 11:14:11 03/24/2003/25/2025 CBC WITH DIFFE RENTI AL/PL ATELE T hemoglobin 9.8 g/dL 13.0-1 7.7 below low normal Not Available [facility] ([facility]) [address] [facility], [place], [address], 03/25/2025 11:14:11 03/24/2003/25/2025 CBC WITH DIFFE RENTI AL/PL ATELE T hematocrit 31.8 % 37.5-5 1.0 below low normal Not Available [facility] ([facility]) [address] [place], [address], 03/25/2025 11:14:11 03/24/2003/25/2025 CBC WITH DIFFE RENTI AL/PL ATELE T MCV 96 fL 79-97 normal Not Available [facility] ([facility]) [address] [place], [address], 03/25/2025 11:14:11 03/24/2003/25/2025 CBC WITH DIFFE RENTI AL/PL ATELE T MCH 29.7 pg 26.6-3 3.0 normal Not Available [facility] ([facility]) [address] [facility], [place], [address], 03/25/2025 11:14:11 03/24/2003/25/2025 CBC WITH DIFFE RENTI AL/PL ATELE T MCHC 30.8 g/dL 31.5-3 5.7 below low normal Not Available [facility] ([facility]) [address] [facility], [place], [address], 03/25/2025 11:14:11 03/24/2003/25/2025 CBC WITH DIFFE RENTI AL/PL ATELE T RDW 13.1 % 11.6-1 5.4 Not Available [facility] ([facility]) [address] [facility], [place], [address], 03/25/2025 11:14:11 03/24/2003/25/2025 CBC WITH DIFFE RENTI AL/PL ATELE T platelets 199 x10e3 /uL 150-45 0 normal Not Available [facility] ([facility]) [address] [facility], [place], [address], 03/25/2025 11:14:11 03/24/2003/25/2025 CBC WITH DIFFE RENTI AL/PL ATELE T neutrophils 54 % not estab. normal Not Available [facility] ([facility]) [address] [facility], [place], [address], 03/25/2025 11:14:11 03/24/2003/25/2025 CBC WITH DIFFE RENTI AL/PL ATELE T lymphs 31 % not estab. normal Not Available [facility] ([facility]) [address] [place], [address], 03/25/2025 11:14:11 03/24/2003/25/2025 CBC WITH DIFFE RENTI AL/PL ATELE T monocytes 12 % not estab. normal Not Available [facility] ([facility]) [address] [facility], [place], [address], 03/25/2025 11:14:11 03/24/2003/25/2025 CBC WITH DIFFE RENTI AL/PL ATELE T eos 2 % not estab. normal Not Available [facility] ([facility]) [address] [facility], [place], [address], 03/25/2025 11:14:11 03/24/2003/25/2025 CBC WITH DIFFE RENTI AL/PL ATELE T basos 1 % not estab. normal Not Available [facility] ([facility]) [address] [facility], [place], [address], 03/25/2025 11:14:11 03/24/2003/25/2025 CBC WITH DIFFE RENTI AL/PL ATELE T immature cells LENS GENERATING MACHINE TENDER Not Available [facility] ([facility]) [address] [place], [address], 03/25/2025 11:14:11 03/24/2003/25/2025 CBC WITH DIFFE RENTI AL/PL ATELE T neutrophils (absolute) 2.6 x10e3 /uL 1.4-7. 0 normal Not Available [facility] ([facility]) [address] [facility], [place], [address], 03/25/2025 11:14:11 03/24/2003/25/2025 CBC WITH DIFFE RENTI AL/PL ATELE T lymphs (absolute) 1.5 x10e3 /uL 0.7-3. 1 normal Not Available [facility] ([facility]) [address] [place], [address], 03/25/2025 11:14:11 03/24/2003/25/2025 CBC WITH DIFFE RENTI AL/PL ATELE T monocytes(ab solute) 0.6 x10e3 /uL 0.1-0. 9 normal Not Available [facility] ([facility]) [address] [facility], [place], [address], 03/25/2025 11:14:11 03/24/2003/25/2025 CBC WITH DIFFE RENTI AL/PL ATELE T eos (absolute) 0.1 x10e3 /uL 0.0-0. 4 normal Not Available [facility] ([facility]) [address] [facility], [place], [address], 03/25/2025 11:14:11 03/24/2003/25/2025 CBC WITH DIFFE RENTI AL/PL ATELE T baso (absolute) 0.0 x10e3 /uL 0.0-0. 2 normal Not Available [facility] ([facility]) [address] [facility], [place], [address], 03/25/2025 11:14:11 03/24/2003/25/2025 CBC WITH DIFFE RENTI AL/PL ATELE T immature granulocytes 0 % not estab. Not Available [facility] ([facility]) [address] [facility], [place], [address], 03/25/2025 11:14:11 03/24/2003/25/2025 CBC WITH DIFFE RENTI AL/PL ATELE T immature grans (abs) 0.0 x10e3 /uL 0.0-0. 1 Not Available [facility] ([facility]) [address] [facility], [place], [address], 03/25/2025 11:14:11 03/24/2003/25/2025 CBC WITH DIFFE RENTI AL/PL ATELE T NRBC LENS GENERATING MACHINE TENDER Not Available [facility] ([facility]) [address] [facility], [place], [address], 03/25/2025 11:14:11 03/24/20 25 03/25/2025 CBC WITH DIFFE RENTI AL/PL ATELE T hematology comments: LENS GENERATING MACHINE TENDER Not Available [facility] ([facility]) [address] [facility], [place], [address], 03/25/2025 11:14:11 03/24/20 25 03/25/2025 RENAL PANEL (10) BUN/creatini ne ratio 10 10-24 normal Not Available [facility] ([facility]) [address] [facility], [place], [address], 03/25/2025 11:14:12 03/24/2003/25/2025 RENAL PANEL (10) calcium 8.0 mg/dL 8.6-10 .2 below low normal Not Available [facility] ([facility]) [address] [facility], [place], [address], 03/25/2025 11:14:12 03/24/2003/25/2025 RENAL PANEL (10) phosphorus 3.5 mg/dL 2.8-4. 1 normal Not Available [facility] ([facility]) [address] [facility], [place], [address], 03/25/2025 11:14:12 03/24/20 25 03/25/2025 RENAL PANEL (10) albumin 2.7 g/dL 3.7-4. 7 below low normal Not Available [facility] ([facility]) [address] [facility], [place], [address], 03/25/2025 11:14:12 03/24/2003/25/2025 IRON AND TIBC iron bind.cap.(TI BC) 217 ug/dL 250-45 0 below low normal Not Available [facility] ([facility]) [address] [facility], [place], [address], 03/25/2025 11:14:13 03/24/20 25 03/25/2025 IRON AND TIBC UIBC 168 ug/dL 111-34 3 normal Not Available [facility] ([facility]) [address] [facility], [place], [address], 03/25/2025 11:14:13 03/24/2003/25/2025 IRON AND TIBC iron 49 ug/dL 38-169 normal Not Available [facility] ([facility]) [address] [facility], [place], [address], 03/25/2025 11:14:13 03/24/2003/25/2025 IRON AND TIBC iron saturation 23 % 15-55 normal Not Available [facility] ([facility]) [address] [facility], [place], [address], 03/25/2025 11:14:13 03/24/2003/25/2025 VITAM IN D, 25-HY DROXY vitamin D, 25-hydroxy 9.2 NG/mL 30.0-1 00.0 below low normal Vitam [...] IOM (Inst itute of Medic ine). 2009. Dieta ry refer ence rosendo es for calci um and D. Elder aragon [place]: The Natio nal [facility] Press . 2. Zuly de la paz [place], Makayla deras [place], [place] off-F errar i COE, et al. Evalu ation , treat ment, and preve ntion of vitam in D defic iency : an Endoc rine Socie ty clini siobhan pract ice guide line. JCEM. 2010; 96(7) :1911 -30. Not Available [facility] ([facility]) [address] [facility], [place], [address], 03/25/2025 11:14:13 03/24/20 25 03/25/2025 MIGDALIA TIN ferritin 75 NG/mL 30-400 normal Not Available [facility] ([facility]) [address] [facility], [place], [address], 03/25/2025 11:14:14 03/24/20 25 03/25/2025 PTH, INTAC T PTH, intact 113 pg/mL 15-65 above high normal Not Available [facility] ([facility]) [address] [facility], [place], [address], 03/25/2025 11:14:15 04/21/2004/21/2025 imagi ng/di agnos tic resul t No observ ation record ed. [email or web address] [facility] [address], [place], [address], 04/22/2025 15:27:06 Result Notes None recorded. Problems Name Problem SNOMED Code Status Onset Date Resolution Date Notes Provider Name and Address Organization Details Recorded Time Essential hypertens ion 29907917 Active 2015 Not Available [facility] 3 11:37:22 Deep venous thrombosi s 376902214 Active 2015 Not Available [facility] 3 11:37:22 Type 2 diabetes mellitus 30823569 Completed 201505/23/2021 Marcelina Longo, FARM ADVIS[employer] [address], [place], [address] , [place] - [facility] 1 10:42:42 Hyperlipi demia 80650988 Active 2015 Not Available [facility] 3 11:37:22 Impotence Active 2015 Not Available [facility] 3 11:37:22 Long-term current use of anticoagu lant 031379464 Active 2015 Not Available [facility] 3 11:37:22 Obesity 966402514 Active 2015 Not Available [facility] 3 11:37:22 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 Not Available [facility] 3 11:37:22 Periphera l vascular disease 587771137 Active 2015 Not Available [facility] 3 11:37:22 Pulmonary embolism 12399787 Completed 201504/08/2016 Paula sheridan, [place] - [facility] 6 13:01:47 Warfarin monitorin g status 341674544 Active 2016 Not Available [facility] 3 11:37:22 Vitamin D deficienc y 39319202 Active 2020 Not Available [facility] 3 11:37:22 Hyperglyc emia due to type 2 diabetes mellitus 19231974397 9109 Active 2020 Not Available [facility] 3 11:37:22 Chronic kidney disease stage 3 923926285 Active 2020 Not Available [facility] 3 11:37:22 Chronic ki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 94116045435 5 Active 2020 Not Available [facility] 3 11:37:22 Mixed hyperlipi demia 679115167 Active 2020 Not Available [facility] 3 11:37:22 History of deep vein thrombosi s 706694215 Active 2020 Not Available [facility] 3 11:37:22 History of pulmonary embolus 069159466 Active 2020 Not Available [facility] 3 11:37:22 Benign essential hypertens ion 6131845 Active 2020 Kat Carnes, FARM ADVISER [address], [place], [address] , [place] - [facility] 5 10:37:04 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 Procedures Surgical History Date Name Laterality Status Provider Name and Address Organization Details Recorded Time 03/24/20 Medication Reconcilliation completed Paula Gee [facility] 03/24/2025 13:08:38 12/30/19 25 A1C level 6.9 and below completed Clive Pineda [place] - [facility] 12/29/2024 10:00:50 09/22/19 A1C level 8.0 to 9.0 completed CliveLulu SarmientoUCAN [facility] 09/21/2024 14:59:34 05/19/20 24 Advance Care Planning completed Paula Gee [facility] 05/19/2024 12:54:25 05/19/20 24 Functional Status Assessed completed Paula Hay [facility] 05/19/2024 12:54:25 01/21/20 24 Positive Microalbumin completed Clive Bizo [facility] 01/21/2024 10:44:25 01/21/20 24 A1C level 6.9 and below completed CliveLulu SarmientoUCAN [facility] 01/21/2024 10:48:27 10/22/19 24 A1C level 6.9 and below completed CliveLulu SarmientoUCAN [facility] 10/22/2023 13:05:51 07/24/19 24 A1C level 8.0 to 9.0 completed Clive SarmientoUCAN - [facility] 07/24/2023 11:56:27 04/08/20 23 A1C level 6.9 and below completed CliveLulu SarmientoUCAN [facility] 04/08/2023 11:20:15 09/05/19 23 Medication Reconcilliation completed Paula Hay [facility] 09/04/2022 13:11:20 06/13/19 23 A1C level 7.0 to 7.9 completed Clive SarmientoUCAN [facility] 06/13/2022 11:10:06 03/06/20 22 A1C level 7.0 to 7.9 completed Clive SarmientoUCAN - [facility] 03/06/2022 13:11:24 12/04/19 22 A1C level 7.0 to 7.9 completed CliveLulu Sarmientoyles [place] - [facility] 12/03/2021 14:19:16 11/29/19 22 Cerumen Removal completed Giovanni Glass MD [address], [place], [email or web address]] [place] - [facility] 11/28/2021 10:57:35 08/30/19 22 Positive Microalbumin completed CliveLulu Sarmientoyles [place] - [facility] 08/29/2021 09:20:08 08/30/19 22 A1C level 7.0 to 7.9 completed CliveLulu Sarmientoyles [place] - [facility] 08/29/2021 09:23:03 05/23/20 21 A1C level 7.0 to 7.9 completed Clive Sarmientoyles [place] - [facility] 05/23/2021 10:41:28 02/22/20 21 A1C level 7.0 to 7.9 completed Clive Sarmientoyles [place] - [facility] 02/21/2021 08:38:20 11/03/19 21 A1C level 7.0 to 7.9 completed Myahalejo Ontiveros [place] - [facility] 11/02/2020 13:15:09 08/25/19 21 Diastolic B/P less than 80 mm Hg completed Paula [employer] [place] - [facility] 08/24/2020 09:28:23 08/25/19 21 Systolic B/P 130-139 mm Hg completed Paula Hay [place] - [facility] 08/24/2020 09:28:20 08/01/19 21 Diastolic B/P less than 80 mm Hg completed Myah Ontiveros [place] - [facility] 08/01/2020 16:31:17 08/01/19 21 [...] than 130 mm Hg completed Paula Hay [place] - [facility] 10/08/2019 13:43:56 10/08/19 20 Diastolic B/P less than 80 mm Hg completed Paula Hay [facility] 10/08/2019 13:44:01 09/08/19 20 Systolic B/P less than 130 mm Hg completed [facility] 09/08/2019 12:57:34 09/08/19 20 Diastolic B/P less than 80 mm Hg completed [facility] 09/08/2019 12:57:39 08/11/19 20 Systolic B/P less than 130 mm Hg completed [facility] 08/11/2019 13:09:51 08/11/19 20 Diastolic B/P 80-89 mm Hg completed [facility] 08/11/2019 13:09:55 06/10/19 20 Systolic B/P less than 130 mm Hg completed [facility] 06/10/2019 12:57:49 06/10/19 20 Diastolic B/P 80-89 mm Hg completed [facility] 06/10/2019 12:57:53 10/25/19 18 Advance Care Planning completed Corine Welch RN [address], [place], [address], [facility] - [facility] 10/24/2017 08:56:49 Cataract Surgery completed Corine Welch RN [address], [place], [address], [facility] 10/24/2017 09:14:03 Imaging Results None recorded. Procedure Notes None recorded. Medical Equipment None Reported. Allergies No known drug allergies Medications Name Sig Start Date Stop Date Status Note LastModified by Organization Details LastModified Time furosemid e 40 mg tablet Take 1 tablet every day by oral route. 2024 active Not Available Not Available Not Avai lable metformin 500 mg tablet take 2 tablets [...] tablet twice a day by oral route. active Not Available Not Available No t Available carvedilo l 12.5 mg tablet TAKE [...] 4:45PM Not Available Not Available Not Available atorvasta tin 10 mg tablet Take 1 tablet every day by oral route at bedtime. active Not Available Not Available No t Available aspirin 325 mg tablet take 1 tablet (325 mg) by oral route once daily 11/12 completed aspirin 325 mg oral tablet;R ecorded Status: Recorded on: 08/02/19 09 2:44PM;D iscontin ued Status: Disconti nued on: 11/13/19 12 9:59AM;U ser: james Not Available Not Available Not Available glyburide [...] Disconti nued on: 01/17/20 11 10:04AM; User: varunEst Sam Completjair on: 07/09/19 12 Not Available Not Available Not Available clarithro mycin 500 mg tablet take 1 tablet (500 mg) by oral route 2 times per day for 10 days 02/03 completed clarithr omycin 500 mg oral tablet;R ecorded Status: Recorded on: 06/14/19 09 3:27PM;D iscontin ued Status: Disconti nued on: 02/04/20 09 12:54PM; User: tiffanie De La OEstSam Completjair on: 06/24/19 09;Print ed: 06/14/19 Not Available [...] Disconti nued on: 10/16/19 12 11:38AM; User: grossert ;Est. Completi on: 11/05/19 12;Indic ation: Bronchit is, Acute - (466.0); Printed: 10/16/19 12 Not Available Not Available Not Available glipizide 10 mg tablet TAKE ONE TABLET BY MOUTH TWICE DAILY with meals 03/24 completed Not Available Not Available Not Available prednison e 20 mg tablet TAKE ONE TABLET BY MOUTH THREE TIMES DAILY 03/24 completed Not Available Not Available Not Available lovastati n 40 mg tablet TAKE ONE TABLET BY MOUTH EVERY EVENING WITH FOOD 03/24 completed Not Available Not Available Not Available AndroGel 1 % (25 mg/2.5 gram) transderm [...] 16 9:04AM;U ser: clover;Est . Completi on: 03/14/20 14 Not Available Not Available Not Available hydralazi ne 25 mg tablet Take 1 tablet 3 times a day by oral route. 08/18 completed Not Available Not Available Not Available amlodipin e 2.5 mg tablet Take 1 tablet every day by oral route. active Not Available Not Available No t Available metronida zole 500 mg tablet Take 1 tablet every 6 hours by oral route. 08/10 completed Not Available Not Available Not Available fexofenad ine 180 mg tablet Take 1 tablet twice a day by oral route. 2024 active Not Available Not Available Not Avai lable ciproflox acin 500 mg tablet take 1 [...] hours by translin gual route as needed. 01/27 completed Not Available Not Available Not Available Lipitor 20 mg tablet take 1 tablet [...] Not Available Not Available No t Available sodium bicarbona te 650 mg tablet Take 1 tablet 3 times a day by oral route. active Not Available Not Available No t Available baclofen 10 mg tablet take 1 tablet (10 mg) by oral route 4 times per day for 30 days 02/13 completed baclofen 10 mg oral tablet;R ecorded Status: Recorded on: 10/03/19 13 4:04PM;D iscontin ued Status: Disconti nued on: 02/14/20 16 9:04AM;U ser: varunEst . Completi on: 11/02/19 13 Not Available Not Available Not Available amlodipin e 10 mg tablet Take 1 tablet every day by oral route. 12/14 completed BP was running low. Not Available Not Available Not Available pantopraz ole 40 mg tablet,de layed release Take 1 tablet every day by oral [...] Disconti nued on: 07/18/19 15 1:27PM;U ser: yola holliday;Est. Completi on: 07/06/19 15;Pharm acyVerif ied: 01/08/20 [...] 3 DOSES IN 15 MINUTES. 2024 active as needed Not Available Not Available Not Available furosemid e 20 mg tablet Take 1 tablet every day by oral route. 03/25 completed Not Available Not Available Not Available [...] Available Not Available Nasonex 50 mcg/actua tion [place] 1 sniff bilat bid 09/15 completed Nasonex 50 mcg/actu ation nasal spray,no n-aeroso l;Prescr yvonne Status: Prescrib ed on: 09/16/19 14 11:17AM; Disconti nued Status: Disconti nued on: 09/16/19 14 3:25PM;U ser: grossert ;Est. Completi on: 03/14/20 14;Indic ation: Atopic Rhinitis - (4779 );Phar Raquel fied: 09/16/19 14 11:17AM Not Available Not Available Not Available diphenhyd ramine 25 mg-acetam inophen 500 mg tablet Take 1 tablet every day by oral route in the evening. active prn for sleep Not Available Not Available Not Available Vitamin [...] TAKE ONE TABLET BY MOUTH ONCE DAILY 03/24 completed Not Available Not Available Not Available fenofibra te 160 mg tablet TAKE ONE [...] unit/mL (3 mL) subcutane ous pen Inject 5 units every day by subcutan eous route at bedtime. active per [facility] Not Available Not Available Not Available Vitamin D 2,000 unit capsule Take 2 capsules every day by oral route. 03/24 completed Not Available Not Available Not Available loratadin e 10 mg capsule Take 1 capsule every day by oral route. 03/24 completed Not Available Not Available Not Available Vitamin D3 50 mcg (2,000 unit) capsule Take 1 capsule every day by oral route. 09/25 completed Not Available Not Available Not Available Xarelto 15 mg tablet Take one tablet once daily. 03/24 completed Not Available Not Available Not Available Xarelto 20 mg tablet TAKE ONE TABLET BY MOUTH EVERY DAY 01/27 completed Not Available Not Available Not Available Victoza 2-Jonah 0.6 mg/0.1 mL (18 mg/3 mL) subcutane ous pen injector inject 0.2 millilit er (1.2 mg) by subcutan eous route once daily 04/18 completed Victoza 2-Jonah 0.6 mg/0.1 mL (18 mg/3 mL) subcutan eous pen injector ;Recorde d Status: Recorded on: 08/26/19 14 9:00AM;U ser: haym Not Available Not Available Not Available apixaban 5 mg tablet Take 1 tablet twice a day by oral route. active Not Available Not Available No t Available Bydureon 2 mg/0.65 mL subcutane ous pen injector Inject by subcutan eous route. 04/[address] BY DR[address] ROMAN Not Available Not Available Not Available Easy Comfort Pen [place] 32 gauge x 5/32 USE DIRECTED DAILY 2021 active Not Available Not Available Not Avai lable Stiolto Respimat 2.5 mcg-2.5 mcg/actua tion solution for inhalatio n Inhale 2 puffs every day by inhalati on route. active Not Available Not Available No t Available Accu-Chek Guide test strips USE TO test [...] weight Body temperature Heart rate Oxygen saturation Respiratory rate Pain severity - 0-10 verbal numeric rating [Score] - Reported Systolic And Diastolic Provider Name and Address Organization Details Last Updated DateTime 5 182.88 cm 26.6 kg/m2 80109.1 g 98.7 [degF] 70 /min 97 % 20 /min 0 100/70 mm[Hg] Paula Gee [facility] 5 13:12:31 Social History Question Answer Notes LastModified by Organization Details LastModified Time Tobacco Smoking Status Former Smoker Paula Gee [facility] 04/08/2016 13:03:41 Able To Swim? Yes Information [...] Or The Highest Degree You Have Received? [id number] Information not available 01/18/2021 Swimming/diving No Informati [...] Date Of Your Most Recent Tobacco Screening? 03/24/2025 Information not available 03/24/2025 How Many Children Do You Have? 2 Information not available 04/10/2016 What Is Your Current Pack Years? 30ormorechente hoskins Information not available 03/06/2022 Do You Use [...] What Date Was Tobacco Cessation Counseling Provided? 12/29/2024 Information not available 12/29/2024 How Many Years Have You Smoked Tobacco? [...] 10/24/2017 Are you able to care for yourself independently? Yes Information not available 04/08/2016 Do you have difficulty dressing, bathing, grooming, or toileting? No Information not available 06/14/2016 Do you [...] not available 04/08/2016 Are you able to walk independently without assistance or assistive devices? YESWOREST Information not available 07/12/2016 Do you have difficulty doing errands alone? No Information not available 06/14/2016 What is your occupation? Retired Information not available 04/08/2016 Mental Status Question Answer Note LastModified by Organizat ion Details LastModified Time Do you feel stressed (tense, restless, nervous, or anxious, or unable to sleep at night)? [id number] Information not available 01/18/2021 Do you have [...] Response Pancreatitis N Coronary Artery Disease N Gout N Other N Atrial Fibrillation N congenital heart disease N Kidney Stones N Blood Diseases N Hyperthyroidism N Blood Transfusion N Rheumatoid arthritis N Erectile Dysfunction Y amputation N Skin Lesions N Depression N COPD N Pneumonia N Incontinence N Murmur N [...] colitis N Cerebrovascular Disease N Depression N Guillain-Bend N Sleep Apnea N Aneurysm N Bronchitis [...] PF 0 completed Shahnaz Herman APRN [address], [place], [address], [place] - [facility] 03/14/2020 16:08:39 Influenza, high-dose, quadrivalent, PF 1 completed Giovanni Glass MD [address], [place], [address], [place] - [facility] 03/21/2021 14:31:50 influenza, unspecified formulation 0 completed Not Available [facility] 02/01/2023 11:37:23 influenza, unspecified formulation 1 completed Not Available [facility] 02/01/2023 11:37:23 influenza, unspecified formulation 2 completed Radha Whittaker null, [place] - [facility] 05/26/2024 10:16:32 influenza, unspecified formulation 3 completed Not Available [facility] 02/01/2023 11:37:23 influenza, unspecified formulation 4 completed Not Available [facility] 02/01/2023 11:37:23 influenza, unspecified formulation 5 completed Not Available [facility] 02/01/2023 11:37:23 influenza, unspecified formulation 8 completed Not Available [facility] 02/01/2023 11:37:23 influenza, unspecified formulation 9 completed Not Available [facility] 02/01/2023 11:37:23 Influenza, split virus, quadrivalent, preservative 7 completed Not Available [facility] 06/26/2019 03:54:42 COVID-19, mRNA, LNP-S, PF, 100 mcg/0.5mL dose or 50 mcg/0.25mL dose 2 completed Giovanni Glass MD [address], [place], [address], [place] - [facility] 06/21/2021 11:12:07 Influenza, high-dose, quadrivalent, PF 2 completed Marcelina Longo APRN [address], [place], [address], [place] [facility] 03/06/2022 13:31:11 Influenza, high-dose, quadrivalent, PF 3 completed [place], [place] - [facility] 03/13/2023 09:48:17 Influenza, split virus, quadrivalent, preservative 6 completed Not Available [facility] 02/01/2023 11:37:23 zoster live 9 completed Not Available [facility] 02/01/2023 11:37:23 Influenza, high-dose, trivalent, PF 4 completed Debra Barajas MD [address], [place], [address], [place] [facility] 03/09/2024 15:47:29 Tdap 4 completed Paula [place], [place] - [facility] 05/19/2024 16:57:05 Pneumococcal conjugate PCV20, polysaccharide [id number] conjugate, adjuvant, PF 4 completed Paula [place], [place] - [facility] 05/19/2024 16:57:56 Influenza, high-dose, trivalent, PF 5 completed Giovanni Glass MD [address], [place], [address], [place] [facility] 03/24/2025 13:57:50 Influenza, high-dose, trivalent, PF 8 completed Not Available [facility] 06/26/2019 03:55:10 SARS-COV-2 (COVID-19) vaccine, UNSPECIFIED 1 completed KODI [place] - [facility] 05/26/2024 10:16:32 SARS-COV-2 (COVID-19) vaccine, UNSPECIFIED 1 completed KODI Jay - [facility] 05/26/2024 10:16:32 Influenza, high-dose, trivalent, PF 9 completed Not Available [facility] 06/26/2019 03:56:04 Past Encounters Encounter ID Performer Location Encounter Start Date Encounter Closed Date Diagnosis/Indication Diagnosis SNOMED-CT Code Diagnosis ICD10 Code Diagnosis IMO Codes Diagnosis Note [id number] Giovanni Glass MD [address] [place] [address] 03/24/2025 12:50:33 03/24/2025 13:50:15 Obesity 523884866 E66.9 Influenza vaccine needed 9979972176 106 Z23 Benign ess ential hypertension 9385346 I10 Peripheral vascular disease 020644684 I73.9 Essential hypertension 56802813 I10 Mixed hyperlipidemia 267 126704 E78.2 Hyperlipidemia 61444325 E78.5 Long-term current use of anticoagulant 211734461 Z79.01 Deep venou s thrombosis 100761386 I82.409 History of deep vein thrombosis 016659099 Z86.718 History of pulmonary embolus 437373515 Z86.711 Hyperglyce nhan due to type 2 diabetes mellitus 0399787905 07090 E11.65 Testicular hypofunction 431315823 E29.1 Vitamin D deficiency 347 61028 E55.9 Chronic ki dney disease stage 3 791600726 N18.30 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 9953536552 05 E11.22 Impotence 101364422 F52. 21 Peripheral neuropathy due to type 2 diabetes mellitus 5659024811 107 E11.42 Chronic sy stolic heart failure 578962416 I50.22 034394 Pruritic d isorder of skin 9550808976 L29.9 20309 Weakness o f bilateral lower limb 7391163170 40997 R29.898 990036 Overweight in adulthood with body mass index of 25 or more but less than 30 469722000 Z68.26 3059938029 Health Concerns Section Related Observation LastModified by Organization Detai ls LastModified Time None Recorded Concern Status LastModified by Organization Details LastModified Time None Recorded Payers Encounter Date Sequence Insurance Name Policy Number Policy Mcintyre Covered Member ID Mcintyre Member ID Guarantor Name 03/24/2025 1 [employer] (MEDICARE REPLACEMENT/A DVANTAGE - PPO) Owen Salazar [id number] Owen Salazar Notes Date Note Type Note Provider Name and Address Organization Details Recorded Time 03/24/2025 text/html Emergency Depart ment Follow-Up RecordReported by Patient Here for hoap F/U. In [place] with SVT, rate 200, CHF, acute on chronic kidney injury. Rate was slowed and feels better. Still weak in legs and they recc PT. Lasix was decreased to 10 mg daily. Needs med for itch. Giovanni Glass MD [facility] [address], [place], [address], [facility] - [facility] 03/24/2025 13:58:35
--- OUTSIDE RECORDS SUMMARY | 2025-04-28 12:50 | XMS_ITS | Data Portability ---
Author Organization [facility] Address [address] [place] [address] Assessment Encounter Date Assessment Date Assessment LastModified [...] HbA1c (hemoglob in A1c), blood 2024 025 [facility], [address] [place] [address] , [place], [address], 04/06/2025 10:11:07 glucose, fingersti ck, blood 2024 025 [facility], [address] [place] [address] , [place], [address], 04/06/2025 10:11:07 HbA1c (hemoglob in A1c), blood 2024 025 [facility], [address] [facility] , [place], [address], 12/29/2024 10:16:38 glucose, fingersti ck, blood 2024 025 [facility], [address] [place] [address] , [place], [address], 12/29/2024 10:16:37 Referral physical therapist [facility] 2024 [facility] [address] [facility] [address], [place], [address], 03/31/2025 15:11:09 diabetic ophthalmo logy referral 2024 025 Tl Brown MD, [address] [place], [address], 04/04/2025 07:29:55 Procedures None recorded. Surgeries None recorded. Imaging XR, chest, 2 view 2024 025 [facility], [address] [place] [address] , [place], [address], 11/24/2024 15:34:09 Medication Orders fexofenad ine 180 mg tablet 2024 025 [facility], [address] [place] [address] Dr [place], [place], [id number], 03/24/2025 17:39:04 furosemid e 40 mg tablet 2024 025 [facility], [address] [place] [address] Dr [place], [id number], 03/24/2025 14:13:36 prednison e 20 mg tablet 2024 025 [facility], [address] [place] [address] [place], [id number], 03/24/2025 10:56:05 loratadin e 10 mg capsule 2024 025 [facility], [address] [place] [address] Dr [place], [place], [id number], 03/24/2025 11:07:35 Patient TargetsNo targets recorded. Patient Instructions Encounter Date Encounter Id Patient Instructions Last Modified By Organization Details Last Modified Time 11/24/2024 [id number] When You Want to Lose Weight: Care Instructions [email or web address] Not available 11/24/2024 13:27:57 12/29/2024 [id number] Peripheral Arterial Disease (PAD): Care Instructions rjessee Not available 12/29/2024 10:16:37 prostate biopsy: about this test rjessee Not available 12/29/2024 10:16:37 When You Want to Lose Weight: Care Instructions rjessee Not available 12/29/2024 10:16:38 learning about healthy weight rjessee Not available 12/29/2024 10:16:38 weight managemen t education rjessee Not available 12/29/2024 10:16:37 high blood pressure: care instructions rjessee Not available 12/29/2024 10:16:37 learning about high blood pressure rjessee Not available 12/29/2024 10:16:37 iron deficiency anemia: care instructions rjessee Not available 12/29/2024 10:16:38 Continue Glipizide 10 mg twice a day. Continue Ozempic 2 mg injection weekly. Continue Lantus 30 units at bedtime. Check your fasting sugar daily and bring meter in with you to each visit. We will get you set up for diabetic eye exam. Follow up with your other health care providers as scheduled. I want to see you back in 3 months. rjessee Not available 12/29/2024 10:16:25 01/27/2025 [id number] When You Want to Lose Weight: Care Instructions [email or web address] Not available 01/28/2025 08:40:45 03/24/2025 [id number] When You Want to Lose Weight: Care Instructions [email or web address] Not available 03/24/2025 15:58:18 04/06/2025 [id number] Peripheral Arterial Disease (PAD): Care Instructions rjessee Not available 04/06/2025 10:11:07 prostate biopsy: about this test rjessee Not available 04/06/2025 10:11:07 When You Want to Lose Weight: Care Instructions rjessee Not available 04/06/2025 10:11:07 learning about healthy weight rjessee Not available 04/06/2025 10:11:07 weight managemen t education rjessee Not available 04/06/2025 10:11:07 high blood pressure: care instructions rjessee Not available 04/06/2025 10:11:07 learning about high blood pressure rjessee Not available 04/06/2025 10:11:07 iron deficiency anemia: care instructions rjessee Not available 04/06/2025 10:11:07 Continue Glipizide 10 mg twice a day. Continue Ozempic 2 mg injection weekly. Continue Lantus 30 units at bedtime. Check your fasting sugar daily and bring meter in with you to each visit. Follow up with your other health care providers as scheduled. I want to see you back in 3 months. Will check PSA at that visit. rjessee Not available 04/06/2025 10:08:48 Reason for Referral Diabetic Ophthalmology Refer ral for Hyperglycemia due to type 2 diabetes mellitus Referring Physician: Marcelina Longo, Family Medicine, Encounter Date: 12/29/2024 Physical Therapist Referral for Weakness of bilateral lower limb Referring Physician: Giovanni Glass, Family Medicine, Encounter Date: 03/24/2025 Results Created Date Observation Date Name Description Value Unit Range Abnormal Flag Note LastModifiedBy Organization Detail LastModifiedTime 11/04/1911/04/2024 CBC WITH DIFFE RENTI AL/PL ATELE T WBC 7.0 x10e3 /uL 3.4-10 .8 normal Not Available [facility] ([facility]) [address] [facility], [place], [address], 11/04/2024 12:11:54 11/04/19 25 11/04/2024 CBC WITH DIFFE RENTI AL/PL ATELE T RBC 3.70 x10e6 /uL 4.14-5 .80 below low normal Not Available [facility] ([facility]) [address] [facility], [place], [address], 11/04/2024 12:11:54 11/04/19 25 11/04/2024 CBC WITH DIFFE RENTI AL/PL ATELE T hemoglobin 11.1 g/dL 13.0-1 7.7 below low normal Not Available [facility] ([facility]) [address] [place], [address], 11/04/2024 12:11:54 11/04/1911/04/2024 CBC WITH DIFFE RENTI AL/PL ATELE T hematocrit 34.6 % 37.5-5 1.0 below low normal Not Available [facility] ([facility]) [address] [facility], [place], [address], 11/04/2024 12:11:54 11/04/19 25 11/04/2024 CBC WITH DIFFE RENTI AL/PL ATELE T MCV 94 fL 79-97 normal Not Available [facility] ([facility]) [address] [place], [address], 11/04/2024 12:11:54 11/04/1911/04/2024 CBC WITH DIFFE RENTI AL/PL ATELE T MCH 30.0 pg 26.6-3 3.0 normal Not Available [facility] ([facility]) [address] [place], [address], 11/04/2024 12:11:54 11/04/19 25 11/04/2024 CBC WITH DIFFE RENTI AL/PL ATELE T MCHC 32.1 g/dL 31.5-3 5.7 normal Not Available [facility] ([facility]) [address] [place], [address], 11/04/2024 12:11:54 11/04/19 25 11/04/2024 CBC WITH DIFFE RENTI AL/PL ATELE T RDW 13.3 % 11.6-1 5.4 Not Available [facility] ([facility]) [address] [facility], [place], [address], 11/04/2024 12:11:54 11/04/19 25 11/04/2024 CBC WITH DIFFE RENTI AL/PL ATELE T platelets 241 x10e3 /uL 150-45 0 normal Not Available [facility] ([facility]) [address] [place], [address], 11/04/2024 12:11:54 11/04/19 25 11/04/2024 CBC WITH DIFFE RENTI AL/PL ATELE T neutrophils 66 % not estab. normal Not Available [facility] ([facility]) [address] [facility], [place], [address], 11/04/2024 12:11:54 11/04/1911/04/2024 CBC WITH DIFFE RENTI AL/PL ATELE T lymphs 20 % not estab. normal Not Available [facility] ([facility]) [address] [facility], [place], [address], 11/04/2024 12:11:54 11/04/1911/04/2024 CBC WITH DIFFE RENTI AL/PL ATELE T monocytes 9 % not estab. normal Not Available [facility] ([facility]) [address] [place], [address], 11/04/2024 12:11:54 11/04/1911/04/2024 CBC WITH DIFFE RENTI AL/PL ATELE T eos 4 % not estab. normal Not Available [facility] ([facility]) [address] [place], [address], 11/04/2024 12:11:54 11/04/19 25 11/04/2024 CBC WITH DIFFE RENTI AL/PL ATELE T basos 1 % not estab. normal Not Available [facility] ([facility]) [address] [facility] [place], [address], 11/04/2024 12:11:54 11/04/19 25 11/04/2024 CBC WITH DIFFE RENTI AL/PL ATELE T immature cells VITAMIN MANAGER Not Available [facility]) [address] [place], [address], 11/04/2024 12:11:54 11/04/19 25 11/04/2024 CBC WITH DIFFE RENTI AL/PL ATELE T neutrophils (absolute) 4.6 x10e3 /uL 1.4-7. 0 normal Not Available [facility] ([facility]) [address] [place], [address], 11/04/2024 12:11:54 11/04/19 25 11/04/2024 CBC WITH DIFFE RENTI AL/PL ATELE T lymphs (absolute) 1.4 x10e3 /uL 0.7-3. 1 normal Not Available [facility] ([facility]) [address] [place], [address], 11/04/2024 12:11:54 11/04/1911/04/2024 CBC WITH DIFFE RENTI AL/PL ATELE T monocytes(ab solute) 0.6 x10e3 /uL 0.1-0. 9 normal Not Available [facility] ([facility]) [address] [place], [address], 11/04/2024 12:11:54 11/04/19 25 11/04/2024 CBC WITH DIFFE RENTI AL/PL ATELE T eos (absolute) 0.3 x10e3 /uL 0.0-0. 4 normal Not Available [facility] ([facility]) [address] [place], [address], 11/04/2024 12:11:54 11/04/19 25 11/04/2024 CBC WITH DIFFE RENTI AL/PL ATELE T baso (absolute) 0.0 x10e3 /uL 0.0-0. 2 normal Not Available [facility] ([facility]) [address] [facility], [place], [address], 11/04/2024 12:11:54 11/04/19 25 11/04/2024 CBC WITH DIFFE RENTI AL/PL ATELE T immature granulocytes 0 % not estab. Not Available [facility] ([facility]) [address] [facility], [place], [address], 11/04/2024 12:11:54 11/04/19 25 11/04/2024 CBC WITH DIFFE RENTI AL/PL ATELE T immature grans (abs) 0.0 x10e3 /uL 0.0-0. 1 Not Available [facility] ([facility]) [address] [facility], [place], [address], 11/04/2024 12:11:54 11/04/1911/04/2024 CBC WITH DIFFE RENTI AL/PL ATELE T NRBC VITAMIN MANAGER Not Available [facility] ([facility]) [address] [facility], [place], [address], 11/04/2024 12:11:54 11/04/19 25 11/04/2024 CBC WITH DIFFE RENTI AL/PL ATELE T hematology comments: VITAMIN MANAGER Not Available [facility]) [address] [place], [address], 11/04/2024 12:11:54 11/04/1911/04/2024 URINA LYSIS , ROUTI NE specific gravity 1.012 1.005- 1.030 normal Not Available [facility] ([facility]) [address] [place], [address], 11/04/2024 12:11:55 11/04/19 25 11/04/2024 URINA LYSIS , ROUTI NE pH 6.0 5.0-7. 5 normal Not Available [facility] ([facility]) [address] [place], [address], 11/04/2024 12:11:55 11/04/19 25 11/04/2024 URINA LYSIS , ROUTI NE urine-color Yellow yellow Not Available [facility]) [address] [place], [address], 11/04/2024 12:11:55 11/04/19 25 11/04/2024 URINA LYSIS , ROUTI NE appearance Clear clear Not Available [facility] ([facility]) [address] [place], [address], 11/04/2024 12:11:55 11/04/19 25 11/04/2024 URINA LYSIS , ROUTI NE WBC esterase Negati ve negati ve Not Available [facility] ([facility]) [address] [place], [address], 11/04/2024 12:11:55 11/04/19 25 11/04/2024 URINA LYSIS , ROUTI NE protein 2+ negati ve/tra ce abnormal Not Available [facility] ([facility]) [address] [place], [address], 11/04/2024 12:11:55 11/04/19 25 11/04/2024 URINA LYSIS , ROUTI NE glucose 1+ negati ve abnormal Not Available [facility] ([facility]) [address] [place], [address], 11/04/2024 12:11:55 11/04/19 25 11/04/2024 URINA LYSIS , ROUTI NE ketones Negati ve negati ve Not Available [facility] ([facility]) [address] [place], [address], 11/04/2024 12:11:55 11/04/19 25 11/04/2024 URINA LYSIS , ROUTI NE occult blood Negati ve negati ve Not Available [facility] ([facility]) [address] [facility] [place], [address], 11/04/2024 12:11:55 11/04/19 25 11/04/2024 URINA LYSIS , ROUTI NE bilirubin Negati ve negati ve Not Available [facility] ([facility]) [address] [place], [address], 11/04/2024 12:11:55 11/04/19 25 11/04/2024 URINA LYSIS , ROUTI NE urobilinogen ,semi-qn 0.2 mg/dL 0.2-1. 0 normal Not Available [facility] ([facility]) [address] [place], [address], 11/04/2024 12:11:55 11/04/19 25 11/04/2024 URINA LYSIS , ROUTI NE nitrite, urine Negati ve negati ve Not Available [facility] ([facility]) [address] [place], [address], 11/04/2024 12:11:55 11/04/1911/04/2024 URINA LYSIS , ROUTI NE microscopic examination See below: Micro scopi c was indic ated and was perfo rmed. Not Available [facility] ([facility]) [address] [facility], [place], [address], 11/04/2024 12:11:55 11/04/1911/04/2024 URINA LYSIS , ROUTI NE WBC None seen /hpf 0 - 5 Not Available [facility] ([facility]) [address] [place], [address], 11/04/2024 12:11:55 11/04/19 25 11/04/2024 URINA LYSIS , ROUTI NE RBC None seen /hpf 0 - 2 Not Available [facility]) [address] [place], [address], 11/04/2024 12:11:55 11/04/19 25 11/04/2024 URINA LYSIS , ROUTI NE epithelial cells (non renal) None seen /hpf 0 - 10 Not Available [facility] ([facility]) [address] [facility], [place], [address], 11/04/2024 12:11:55 11/04/19 25 11/04/2024 URINA LYSIS , ROUTI NE epithelial cells (renal) VITAMIN MANAGER Not Available [facility]) [address] [facility], [place], [address], 11/04/2024 12:11:55 11/04/19 25 11/04/2024 URINA LYSIS , ROUTI NE casts None seen /lpf none seen Not Available [facility] ([facility]) [address] [facility], [place], [address], 11/04/2024 12:11:55 11/04/19 25 11/04/2024 URINA LYSIS , ROUTI NE cast type VITAMIN MANAGER Not Available [facility]) [address] [facility], [place], [address], 11/04/2024 12:11:55 11/04/19 25 11/04/2024 URINA LYSIS , ROUTI NE crystals VITAMIN MANAGER Not Available [facility]) [address] [facility], [place], [address], 11/04/2024 12:11:55 11/04/19 25 11/04/2024 URINA LYSIS , ROUTI NE crystal type VITAMIN MANAGER Not Available [facility] [address] [facility], [place], [address], 11/04/2024 12:11:55 11/04/19 25 11/04/2024 URINA LYSIS , ROUTI NE mucus threads VITAMIN MANAGER Not Available [facility]) [address] [facility], [place], [address], 11/04/2024 12:11:55 11/04/19 25 11/04/2024 URINA LYSIS , ROUTI NE bacteria None seen none seen/f ew Not Available [facility] ([facility]) [address] [facility], [place], [address], 11/04/2024 12:11:55 11/04/19 25 11/04/2024 URINA LYSIS , ROUTI NE yeast VITAMIN MANAGER Not Available [facility]) [address] [facility], [place], [address], 11/04/2024 12:11:55 11/04/19 25 11/04/2024 URINA LYSIS , ROUTI NE trichomonas VITAMIN MANAGER Not Available [facility] [address] [facility], [place], [address], 11/04/2024 12:11:55 11/04/19 25 11/04/2024 URINA LYSIS , ROUTI NE comment VITAMIN MANAGER Not Available [facility]) [address] [facility], [place], [address], 11/04/2024 12:11:55 11/04/1911/04/2024 RENAL PANEL (10) glucose 184 mg/dL 70-99 above high normal Not Available [facility] ([facility]) [address] [facility], [place], [address], 11/04/2024 12:11:56 11/04/1911/04/2024 RENAL PANEL (10) BUN 60 mg/dL 8-27 above high normal Not Available [facility] ([facility]) [address] [place], [address], 11/04/2024 12:11:56 11/04/1911/04/2024 RENAL PANEL (10) creatinine 4.79 mg/dL 0.76-1 .27 above high normal Not Available [facility] ([facility]) [address] [place], [address], 11/04/2024 12:11:56 11/04/19 11/04/2024 RENAL PANEL (10) eGFR 11 mL/mi n/1.7 3 >59 below low normal Not Available [facility] ([facility]) [address] [place], [address], 11/04/2024 12:11:56 11/04/19 25 11/04/2024 RENAL PANEL (10) BUN/creatini ne ratio 13 10-24 normal Not Available [facility] [address] [place], [address], 11/04/2024 12:11:56 11/04/19 25 11/04/2024 RENAL PANEL (10) sodium 139 mmol/ L 134-14 4 normal Not Available [facility] ([facility]) [address] [place], [address], 11/04/2024 12:11:56 11/04/19 25 11/04/2024 RENAL PANEL (10) potassium 4.1 mmol/ L 3.5-5. 2 normal Not Available [facility]) [address] [place], [address], 11/04/2024 12:11:56 11/04/19 25 11/04/2024 RENAL PANEL (10) chloride 105 mmol/ L 96-106 normal Not Available [facility]) [address] [place], [address], 11/04/2024 12:11:56 11/04/19 25 11/04/2024 RENAL PANEL (10) carbon dioxide, total 17 mmol/ L 20-29 below low normal Not Available [facility]) [address] [place], [address], 11/04/2024 12:11:56 11/04/19 25 11/04/2024 RENAL PANEL (10) calcium 9.0 mg/dL 8.6-10 .2 normal Not Available [facility]) [address] [facility], [place], [address], 11/04/2024 12:11:56 11/04/19 25 11/04/2024 RENAL PANEL (10) phosphorus 4.3 mg/dL 2.8-4. 1 above high normal Not Available [facility] ([facility]) [address] [facility], [place], [address], 11/04/2024 12:11:56 11/04/19 25 11/04/2024 RENAL PANEL (10) albumin 3.9 g/dL 3.7-4. 7 normal Not Available [facility]) [address] [place], [address], 11/04/2024 12:11:56 11/04/19 25 11/04/2024 IRON AND TIBC iron bind.cap.(TI BC) 340 ug/dL 250-45 0 normal Not Available [facility]) [address] [place], [address], 11/04/2024 12:11:56 11/04/19 25 11/04/2024 IRON AND TIBC UIBC 267 ug/dL 111-34 3 normal Not Available [facility]) [address] [facility], [place], [address], 11/04/2024 12:11:56 11/04/19 25 11/04/2024 IRON AND TIBC iron 73 ug/dL 38-169 normal Not Available [facility]) [address] [place], [address], 11/04/2024 12:11:56 11/04/19 25 11/04/2024 IRON AND TIBC iron saturation 21 % 15-55 normal Not Available [facility] [address] [place], [address], 11/04/2024 12:11:56 11/04/19 25 11/04/2024 VITAM IN [...] um and D. Elder aragon [place]: [facility] . 2. Zuly de la paz [place], Makayla deras [place], [place] off-F tiki i COE, et al. Evalu ation , treat ment, and preve ntion of vitam in D defic iency : an Endoc rine Socie ty clini siobhan pract ice guide line. JCEM. 2010; 96(7) :1911 -30. Not Available [facility] ([facility]) [address] [place], [address], 11/04/2024 12:11:57 11/04/19 25 11/04/2024 MIGDALIA TIN ferritin 77 NG/mL 30-400 normal Not Available [facility] ([facility]) [address] [place], [address], 11/04/2024 12:11:58 11/04/19 25 11/04/2024 PROTE IN,TO PAULINO,U RINE protein,tota l,urine 123.4 mg/dL not estab. normal Not Available [facility] ([facility]) [address] [place], [address], 11/04/2024 12:11:58 11/04/19 25 11/04/2024 CREAT ININE , URINE creatinine, urine 57.3 mg/dL not estab. normal Not Available [facility] ([facility]) [address] [place], [address], 11/04/2024 12:11:59 11/04/19 25 11/04/2024 PTH, INTAC T PTH, intact 102 pg/mL 15-65 above high normal Not Available [facility] ([facility]) [address] [place], [address], 11/04/2024 12:11:59 11/25/19 25 11/25/2024 BASIC METAB OLIC PANEL (8) glucose 99 mg/dL 70-99 normal Not Available [facility] ([facility]) [address] [place], [address], 11/25/2024 04:10:06 11/25/19 25 11/25/2024 BASIC METAB OLIC PANEL (8) BUN 60 mg/dL 8-27 above high normal Not Available [facility] ([facility]) [address] [place], [address], 11/25/2024 04:10:06 11/25/19 25 11/25/2024 BASIC METAB OLIC PANEL (8) creatinine 4.44 mg/dL 0.76-1 .27 above high normal Not Available [facility] ([facility]) [address] [place], [address], 11/25/2024 04:10:06 11/25/19 25 11/25/2024 BASIC METAB OLIC PANEL (8) eGFR 12 mL/mi n/1.7 3 >59 below low normal Not Available [facility]) [address] [place], [address], 11/25/2024 04:10:06 11/25/19 25 11/25/2024 BASIC METAB OLIC PANEL (8) BUN/creatini ne ratio 14 10-24 normal Not Available [facility]) [address] [place], [address], 11/25/2024 04:10:06 11/25/19 25 11/25/2024 BASIC METAB OLIC PANEL (8) sodium 138 mmol/ L 134-14 4 normal Not Available [facility] ([facility]) [address] [place], [address], 11/25/2024 04:10:06 11/25/19 25 11/25/2024 BASIC METAB OLIC PANEL (8) potassium 4.7 mmol/ L 3.5-5. 2 normal Not Available [facility]) [address] [place], [address], 11/25/2024 04:10:06 11/25/1911/25/2024 BASIC METAB OLIC PANEL (8) chloride 104 mmol/ L 96-106 normal Not Available [facility]) [address] [place], [address], 11/25/2024 04:10:06 11/25/19 25 11/25/2024 BASIC METAB OLIC PANEL (8) carbon dioxide, total 19 mmol/ L 20-29 below low normal Not Available [facility]) [address] [place], [address], 11/25/2024 04:10:06 11/25/19 25 11/25/2024 BASIC METAB OLIC PANEL (8) calcium 9.3 mg/dL 8.6-10 .2 normal Not Available [facility] ([facility]) [address] [place], [address], 11/25/2024 04:10:06 12/22/19 25 12/22/2024 BASIC METAB OLIC PANEL (8) glucose 151 mg/dL 70-99 above high normal Not Available [facility]) [address] [place], [address], 12/22/2024 04:10:01 12/22/19 25 12/22/2024 BASIC METAB OLIC PANEL (8) BUN 40 mg/dL 8-27 above high normal Not Available [facility]) [address] [place] [place], [address], 12/22/2024 04:10:01 12/22/1912/22/2024 BASIC METAB OLIC PANEL (8) creatinine 3.32 mg/dL 0.76-1 .27 above high normal Not Available [facility]) [address] [place] [place], [address], 12/22/2024 04:10:01 12/22/1912/22/2024 BASIC METAB OLIC PANEL (8) eGFR 18 mL/mi n/1.7 3 >59 below low normal Not Available [facility]) [address] [place] [place], [address], 12/22/2024 04:10:01 12/22/1912/22/2024 BASIC METAB OLIC PANEL (8) BUN/creatini ne ratio 12 10-24 normal Not Available [facility] [address] [place] [place], [address], 12/22/2024 04:10:01 12/22/1912/22/2024 BASIC METAB OLIC PANEL (8) sodium 140 mmol/ L 134-14 4 normal Not Available [facility]) [address] [place] [place], [address], 12/22/2024 04:10:01 12/22/1912/22/2024 BASIC METAB OLIC PANEL (8) potassium 4.4 mmol/ L 3.5-5. 2 normal Not Available [facility] ([facility]) [address] [place] [place], [address], 12/22/2024 04:10:01 12/22/1912/22/2024 BASIC METAB OLIC PANEL (8) chloride 109 mmol/ L 96-106 above high normal Not Available [facility]) [address] [place], [address], 12/22/2024 04:10:01 12/22/19 25 12/22/2024 BASIC METAB OLIC PANEL (8) carbon dioxide, total 17 mmol/ L 20-29 below low normal Not Available [facility] ([facility]) [address] [facility], [place], [address], 12/22/2024 04:10:01 12/22/19 25 12/22/2024 BASIC METAB OLIC PANEL (8) calcium 9.0 mg/dL 8.6-10 .2 normal Not Available [facility] ([facility]) [address] [facility], [place], [address], 12/22/2024 04:10:01 12/30/19 25 12/29/2024 HbA1c (hemo globi n A1c), blood HbA1C 6.5 % Not Available [address] , [place], [address], 12/27/2024 14:25:45 12/30/19 25 12/29/2024 gluco se, finge rstic k, blood Blood Glucose: mg/dl 224 Not Available [address] , [place], [address], 12/27/2024 14:25:46 01/25/20 25 01/24/2025 CBC WITH DIFFE RENTI AL/PL ATELE T WBC 7.2 x10e3 /uL 3.4-10 .8 normal Not Available [facility] ([facility]) [address] [facility], [place], [address], 01/25/2025 11:12:07 01/25/20 25 01/24/2025 CBC WITH DIFFE RENTI AL/PL ATELE T RBC 3.53 x10e6 /uL 4.14-5 .80 below low normal Not Available [facility] ([facility]) [address] [facility], [place], [address], 01/25/2025 11:12:07 01/25/20 25 01/24/2025 CBC WITH DIFFE RENTI AL/PL ATELE T hemoglobin 10.8 g/dL 13.0-1 7.7 below low normal Not Available [facility] ([facility]) [address] [place], [address], 01/25/2025 11:12:07 01/25/20 25 01/24/2025 CBC WITH DIFFE RENTI AL/PL ATELE T hematocrit 34.5 % 37.5-5 1.0 below low normal Not Available [facility] ([facility]) [address] [place], [address], 01/25/2025 11:12:07 01/25/20 25 01/24/2025 CBC WITH DIFFE RENTI AL/PL ATELE T MCV 98 fL 79-97 above high normal Not Available [facility] ([facility]) [address] [place], [address], 01/25/2025 11:12:07 01/25/20 25 01/24/2025 CBC WITH DIFFE RENTI AL/PL ATELE T MCH 30.6 pg 26.6-3 3.0 normal Not Available [facility] ([facility]) [address] [place], [address], 01/25/2025 11:12:07 01/25/20 25 01/24/2025 CBC WITH DIFFE RENTI AL/PL ATELE T MCHC 31.3 g/dL 31.5-3 5.7 below low normal Not Available [facility] ([facility]) [address] [place], [address], 01/25/2025 11:12:07 01/25/20 25 01/24/2025 CBC WITH DIFFE RENTI AL/PL ATELE T RDW 12.6 % 11.6-1 5.4 Not Available [facility] ([facility]) [address] [place], [address], 01/25/2025 11:12:07 01/25/20 25 01/24/2025 CBC WITH DIFFE RENTI AL/PL ATELE T platelets 237 x10e3 /uL 150-45 0 normal Not Available [facility] ([facility]) [address] [facility], [place], [address], 01/25/2025 11:12:07 01/25/20 25 01/24/2025 CBC WITH DIFFE RENTI AL/PL ATELE T neutrophils 57 % not estab. normal Not Available [facility] ([facility]) [address] [facility], [place], [address], 01/25/2025 11:12:07 01/25/20 25 01/24/2025 CBC WITH DIFFE RENTI AL/PL ATELE T lymphs 24 % not estab. normal Not Available [facility] ([facility]) [address] [facility], [place], [address], 01/25/2025 11:12:07 01/25/20 25 01/24/2025 CBC WITH DIFFE RENTI AL/PL ATELE T monocytes 11 % not estab. normal Not Available [facility] ([facility]) [address] [facility], [place], [address], 01/25/2025 11:12:07 01/25/20 25 01/24/2025 CBC WITH DIFFE RENTI AL/PL ATELE T eos 8 % not estab. normal Not Available [facility] ([facility]) [address] [facility], [place], [address], 01/25/2025 11:12:07 01/25/20 25 01/24/2025 CBC WITH DIFFE RENTI AL/PL ATELE T basos 0 % not estab. normal Not Available [facility] ([facility]) [address] [facility], [place], [address], 01/25/2025 11:12:07 01/25/20 25 01/24/2025 CBC WITH DIFFE RENTI AL/PL ATELE T immature cells VITAMIN MANAGER Not Available [facility] ([facility]) [address] [place], [address], 01/25/2025 11:12:07 01/25/20 25 01/24/2025 CBC WITH DIFFE RENTI AL/PL ATELE T neutrophils (absolute) 4.1 x10e3 /uL 1.4-7. 0 normal Not Available [facility] ([facility]) [address] [place], [address], 01/25/2025 11:12:07 01/25/20 25 01/24/2025 CBC WITH DIFFE RENTI AL/PL ATELE T lymphs (absolute) 1.7 x10e3 /uL 0.7-3. 1 normal Not Available [facility] ([facility]) [address] [place], [address], 01/25/2025 11:12:07 01/25/20 25 01/24/2025 CBC WITH DIFFE RENTI AL/PL ATELE T monocytes(ab solute) 0.8 x10e3 /uL 0.1-0. 9 normal Not Available [facility] ([facility]) [address] [place], [address], 01/25/2025 11:12:07 01/25/20 25 01/24/2025 CBC WITH DIFFE RENTI AL/PL ATELE T eos (absolute) 0.6 x10e3 /uL 0.0-0. 4 above high normal Not Available [facility] ([facility]) [address] [place], [address], 01/25/2025 11:12:07 01/25/20 25 01/24/2025 CBC WITH DIFFE RENTI AL/PL ATELE T baso (absolute) 0.0 x10e3 /uL 0.0-0. 2 normal Not Available [facility] ([facility]) [address] [place], [address], 01/25/2025 11:12:07 01/25/20 25 01/24/2025 CBC WITH DIFFE RENTI AL/PL ATELE T immature granulocytes 0 % not estab. Not Available [facility] ([facility]) [address] [facility], [place], [address], 01/25/2025 11:12:07 01/25/20 25 01/24/2025 CBC WITH DIFFE RENTI AL/PL ATELE T immature grans (abs) 0.0 x10e3 /uL 0.0-0. 1 Not Available [facility] ([facility]) [address] [facility], [place], [address], 01/25/2025 11:12:07 01/25/20 25 01/24/2025 CBC WITH DIFFE RENTI AL/PL ATELE T NRBC VITAMIN MANAGER Not Available [facility] ([facility]) [address] [facility], [place], [address], 01/25/2025 11:12:07 01/25/2001/24/2025 CBC WITH DIFFE RENTI AL/PL ATELE T hematology comments: VITAMIN MANAGER Not Available [facility] ([facility]) [address] [facility], [place], [address], 01/25/2025 11:12:07 01/25/2001/25/2025 URINA LYSIS , ROUTI NE specific gravity 1.013 1.005- 1.030 normal Not Available [facility] ([facility]) [address] [facility], [place], [address], 01/25/2025 11:12:08 01/25/2001/25/2025 URINA LYSIS , ROUTI NE pH 6.0 5.0-7. 5 normal Not Available [facility] ([facility]) [address] [facility], [place], [address], 01/25/2025 11:12:08 01/25/20 25 01/25/2025 URINA LYSIS , ROUTI NE urine-color Yellow yellow Not Available [facility] ([facility]) [address] [facility], [place], [address], 01/25/2025 11:12:08 01/25/20 25 01/25/2025 URINA LYSIS , ROUTI NE appearance Clear clear Not Available [facility] ([facility]) [address] [facility], [place], [address], 01/25/2025 11:12:08 01/25/20 25 01/25/2025 URINA LYSIS , ROUTI NE WBC esterase Negati ve negati ve Not Available [facility] ([facility]) [address] [facility], [place], [address], 01/25/2025 11:12:08 01/25/20 25 01/25/2025 URINA LYSIS , ROUTI NE protein 3+ negati ve/tra ce abnormal Not Available [facility] ([facility]) [address] [facility], [place], [address], 01/25/2025 11:12:08 01/25/2001/25/2025 URINA LYSIS , ROUTI NE glucose Negati ve negati ve Not Available [facility] ([facility]) [address] [facility], [place], [address], 01/25/2025 11:12:08 01/25/20 25 01/25/2025 URINA LYSIS , ROUTI NE ketones Negati ve negati ve Not Available [facility] ([facility]) [address] [place], [address], 01/25/2025 11:12:08 01/25/20 25 01/25/2025 URINA LYSIS , ROUTI NE occult blood 1+ negati ve abnormal Not Available [facility] ([facility]) [address] [place], [address], 01/25/2025 11:12:08 01/25/20 25 01/25/2025 URINA LYSIS , ROUTI NE bilirubin Negati ve negati ve Not Available [facility] ([facility]) [address] [place], [address], 01/25/2025 11:12:08 01/25/20 25 01/25/2025 URINA LYSIS , ROUTI NE urobilinogen ,semi-qn 0.2 mg/dL 0.2-1. 0 normal Not Available [facility] ([facility]) [address] [place], [address], 01/25/2025 11:12:08 01/25/2001/25/2025 URINA LYSIS , ROUTI NE nitrite, urine Negati ve negati ve Not Available [facility] ([facility]) [address] [facility], [place], [address], 01/25/2025 11:12:08 01/25/20 25 01/25/2025 URINA LYSIS , ROUTI NE microscopic examination See below: Micro scopi c was indic ated and was perfo rmed. Not Available [facility] ([facility]) [address] [place], [address], 01/25/2025 11:12:08 01/25/20 25 01/25/2025 URINA LYSIS , ROUTI NE WBC None seen /hpf 0 - 5 Not Available [facility] ([facility]) [address] [place], [address], 01/25/2025 11:12:08 01/25/20 25 01/25/2025 URINA LYSIS , ROUTI NE RBC None seen /hpf 0 - 2 Not Available [facility] ([facility]) [address] [place], [address], 01/25/2025 11:12:08 01/25/20 25 01/25/2025 URINA LYSIS , ROUTI NE epithelial cells (non renal) None seen /hpf 0 - 10 Not Available [facility] ([facility]) [address] [facility], [place], [address], 01/25/2025 11:12:08 01/25/20 25 01/25/2025 URINA LYSIS , ROUTI NE epithelial cells (renal) VITAMIN MANAGER Not Available [facility] ([facility]) [address] [facility], [place], [address], 01/25/2025 11:12:08 01/25/20 25 01/25/2025 URINA LYSIS , ROUTI NE casts None seen /lpf none seen Not Available [facility] ([facility]) [address] [facility], [place], [address], 01/25/2025 11:12:08 01/25/20 25 01/25/2025 URINA LYSIS , ROUTI NE cast type VITAMIN MANAGER Not Available [facility] ([facility]) [address] [facility], [place], [address], 01/25/2025 11:12:08 01/25/20 25 01/25/2025 URINA LYSIS , ROUTI NE crystals VITAMIN MANAGER Not Available [facility] ([facility]) [address] [facility], [place], [address], 01/25/2025 11:12:08 01/25/20 25 01/25/2025 URINA LYSIS , ROUTI NE crystal type VITAMIN MANAGER Not Available [facility] ([facility]) [address] [facility], [place], [address], 01/25/2025 11:12:08 01/25/20 25 01/25/2025 URINA LYSIS , ROUTI NE mucus threads VITAMIN MANAGER Not Available [facility] ([facility]) [address] [facility], [place], [address], 01/25/2025 11:12:08 01/25/20 25 01/25/2025 URINA LYSIS , ROUTI NE bacteria None seen none seen/f ew Not Available [facility] ([facility]) [address] [facility], [place], [address], 01/25/2025 11:12:08 01/25/20 25 01/25/2025 URINA LYSIS , ROUTI NE yeast VITAMIN MANAGER Not Available [facility] ([facility]) [address] [facility], [place], [address], 01/25/2025 11:12:08 01/25/20 25 01/25/2025 URINA LYSIS , ROUTI NE trichomonas VITAMIN MANAGER Not Available [facility] ([facility]) [address] [facility], [place], [address], 01/25/2025 11:12:08 01/25/20 25 01/25/2025 URINA LYSIS , ROUTI NE comment VITAMIN MANAGER Not Available [facility] ([facility]) [address] [facility], [place], [address], 01/25/2025 11:12:08 01/25/20 25 01/25/2025 RENAL PANEL (10) glucose 124 mg/dL 70-99 above high normal Not Available [facility] ([facility]) [address] [place] [place], [address], 01/25/2025 11:12:09 01/25/20 25 01/25/2025 RENAL PANEL (10) BUN 55 mg/dL 8-27 above high normal Not Available [facility] ([facility]) [address] [place], [address], 01/25/2025 11:12:09 01/25/20 25 01/25/2025 RENAL PANEL (10) creatinine 3.72 mg/dL 0.76-1 .27 above high normal Not Available [facility] ([facility]) [address] [place], [address], 01/25/2025 11:12:09 01/25/20 25 01/25/2025 RENAL PANEL (10) eGFR 15 mL/mi n/1.7 3 >59 below low normal Not Available [facility] ([facility]) [address], [place], [address], 01/25/2025 11:12:09 01/25/20 25 01/25/2025 RENAL PANEL (10) BUN/creatini ne ratio 15 10-24 normal Not Available [facility] ([facility]) [address] [place], [address], 01/25/2025 11:12:09 01/25/20 25 01/25/2025 RENAL PANEL (10) sodium 138 mmol/ L 134-14 4 normal Not Available [facility] ([facility]) [address] [place], [address], 01/25/2025 11:12:09 01/25/20 25 01/25/2025 RENAL PANEL (10) potassium 4.6 mmol/ L 3.5-5. 2 normal Not Available [facility] ([facility]) [address] [facility], [place], [address], 01/25/2025 11:12:09 01/25/20 25 01/25/2025 RENAL PANEL (10) chloride 107 mmol/ L 96-106 above high normal Not Available [facility] ([facility]) [address] [place] [place], [address], 01/25/2025 11:12:09 01/25/20 25 01/25/2025 RENAL PANEL (10) carbon dioxide, total 16 mmol/ L 20-29 below low normal Not Available [facility] ([facility]) [address] [place] [place], [address], 01/25/2025 11:12:09 01/25/20 25 01/25/2025 RENAL PANEL (10) calcium 9.0 mg/dL 8.6-10 .2 normal Not Available [facility] ([facility]) [address] [place], [address], 01/25/2025 11:12:09 01/25/20 25 01/25/2025 RENAL PANEL (10) phosphorus 2.8 mg/dL 2.8-4. 1 normal Not Available [facility] ([facility]) [address] [place], [address], 01/25/2025 11:12:09 01/25/20 25 01/25/2025 RENAL PANEL (10) albumin 3.8 g/dL 3.7-4. 7 normal Not Available [facility] ([facility]) [address] [place], [address], 01/25/2025 11:12:09 01/25/20 25 01/25/2025 IRON AND TIBC iron bind.cap.(TI BC) 321 ug/dL 250-45 0 normal Not Available [facility] ([facility]) [address] [place], [address], 01/25/2025 11:12:09 01/25/20 25 01/25/2025 IRON AND TIBC UIBC 276 ug/dL 111-34 3 normal Not Available [facility] ([facility]) [address] [place], [address], 01/25/2025 11:12:09 01/25/20 25 01/25/2025 IRON AND TIBC iron 45 ug/dL 38-169 normal Not Available [facility] ([facility]) [address] [place], [address], 01/25/2025 11:12:09 01/25/20 25 01/25/2025 IRON AND TIBC iron saturation 14 % 15-55 below low normal Not Available [facility] ([facility]) [address] [place], [address], 01/25/2025 11:12:09 01/25/20 25 01/25/2025 PROT+ CREAT U (RAND OM) creatinine, urine 69.3 mg/dL not estab. normal Not Available [facility] ([facility]) [address] [facility], [place], [address], 01/25/2025 11:12:10 01/25/20 25 01/25/2025 PROT+ CREAT U (RAND OM) protein,tota l,urine 219.4 mg/dL not estab. normal Resul ts confi rmed on dilut ion. Not Available [facility] ([facility]) [address] [facility], [place], [address], 01/25/2025 11:12:10 01/25/20 25 01/25/2025 PROT+ CREAT U (RAND OM) protein/crea t ratio 3166 mg/g_ creat 0-200 above high normal Not Available [facility] ([facility] [address] [facility], [place], [address], 01/25/2025 11:12:10 01/25/20 25 01/25/2025 VITAM IN D, 25-HY DROXY vitamin D, 25-hydroxy 25.4 NG/mL 30.0-1 00.0 below low normal Vitam in D defic iency has been defin ed by the Insti tute of Medic ine and an Endoc rine Socie ty pract ice guide line as a level of serum 25-OH vitam in D less than 20 ng/mL (1,2) . The Endoc rine Socie ty went on to [facility] er defin e vitam in D insuf ficie ncy as a level betwe en 21 and 29 ng/mL (2). 1. IOM (Inst itute of Medic ine). 2009. Dieta ry refer ence intak es for calci um and D. Elder aragon [place]: The Natio nal [facility] Press . 2. Zuly de la paz [place], Makayla deras [place], [place], et al. Evalu ation , treat ment, and preve ntion of vitam in D defic iency : an Endoc rine Socie ty clini siobhan pract ice guide line. JCEM. 2010; 96(7) :1911 -30. Not Available [facility] ([facility]) [address] [place], [address], 01/25/2025 11:12:11 01/25/2001/25/2025 MIGDALIA TIN ferritin 40 NG/mL 30-400 normal Not Available [facility] ([facility]) [address] [place], [address], 01/25/2025 11:12:11 01/25/2001/25/2025 PTH, INTAC T PTH, intact 96 pg/mL 15-65 above high normal Not Available [facility] ([facility]) [address] [place], [address], 01/25/2025 11:12:12 03/04/20 25 03/05/2025 CBC WITH DIFFE RENTI AL/PL ATELE T WBC 7.2 x10e3 /uL 3.4-10 .8 normal Not Available [facility] ([facility]) [address] [place], [address], 03/05/2025 06:17:27 03/04/20 25 03/05/2025 CBC WITH DIFFE RENTI AL/PL ATELE T RBC 4.10 x10e6 /uL 4.14-5 .80 below low normal Not Available [facility] ([facility]) [address] [place], [address], 03/05/2025 06:17:27 03/04/2003/05/2025 CBC WITH DIFFE RENTI AL/PL ATELE T hemoglobin 12.3 g/dL 13.0-1 7.7 below low normal Not Available [facility] ([facility]) [address] [place], [address], 03/05/2025 06:17:27 03/04/20 25 03/05/2025 CBC WITH DIFFE RENTI AL/PL ATELE T hematocrit 38.0 % 37.5-5 1.0 normal Not Available [facility] ([facility]) [address] [place], [address], 03/05/2025 06:17:27 03/04/2003/05/2025 CBC WITH DIFFE RENTI AL/PL ATELE T MCV 93 fL 79-97 normal Not Available [facility] ([facility]) [address] [facility], [place], [address], 03/05/2025 06:17:27 03/04/2003/05/2025 CBC WITH DIFFE RENTI AL/PL ATELE T MCH 30.0 pg 26.6-3 3.0 normal Not Available [facility] ([facility]) [address] [place], [address], 03/05/2025 06:17:27 03/04/2003/05/2025 CBC WITH DIFFE RENTI AL/PL ATELE T MCHC 32.4 g/dL 31.5-3 5.7 normal Not Available [facility] ([facility]) [address] [facility], [place], [address], 03/05/2025 06:17:27 03/04/2003/05/2025 CBC WITH DIFFE RENTI AL/PL ATELE T RDW 12.4 % 11.6-1 5.4 Not Available [facility] ([facility]) [address] [facility], [place], [address], 03/05/2025 06:17:27 03/04/2003/05/2025 CBC WITH DIFFE RENTI AL/PL ATELE T platelets 233 x10e3 /uL 150-45 0 normal Not Available [facility] ([facility]) [address] [place], [address], 03/05/2025 06:17:27 03/04/2003/05/2025 CBC WITH DIFFE RENTI AL/PL ATELE T neutrophils 67 % not estab. normal Not Available [facility] ([facility]) [address] [place], [address], 03/05/2025 06:17:27 03/04/2003/05/2025 CBC WITH DIFFE RENTI AL/PL ATELE T lymphs 18 % not estab. normal Not Available [facility] ([facility]) [address] [facility], [place], [address], 03/05/2025 06:17:27 03/04/2003/05/2025 CBC WITH DIFFE RENTI AL/PL ATELE T monocytes 11 % not estab. normal Not Available [facility] ([facility]) [address] [facility], [place], [address], 03/05/2025 06:17:27 03/04/2003/05/2025 CBC WITH DIFFE RENTI AL/PL ATELE T eos 3 % not estab. normal Not Available [facility] ([facility]) [address] [place], [address], 03/05/2025 06:17:27 03/04/2003/05/2025 CBC WITH DIFFE RENTI AL/PL ATELE T basos 0 % not estab. normal Not Available [facility] ([facility]) [address] [place], [address], 03/05/2025 06:17:27 03/04/2003/05/2025 CBC WITH DIFFE RENTI AL/PL ATELE T immature cells VITAMIN MANAGER Not Available [facility] ([facility]) [address] [place], [address], 03/05/2025 06:17:27 03/04/2003/05/2025 CBC WITH DIFFE RENTI AL/PL ATELE T neutrophils (absolute) 4.8 x10e3 /uL 1.4-7. 0 normal Not Available [facility] ([facility]) [address] [place], [address], 03/05/2025 06:17:27 03/04/20 25 03/05/2025 CBC WITH DIFFE RENTI AL/PL ATELE T lymphs (absolute) 1.3 x10e3 /uL 0.7-3. 1 normal Not Available [facility] ([facility]) [address] [facility], [place], [address], 03/05/2025 06:17:27 03/04/20 25 03/05/2025 CBC WITH DIFFE RENTI AL/PL ATELE T monocytes(ab solute) 0.8 x10e3 /uL 0.1-0. 9 normal Not Available [facility] ([facility]) [address] [facility], [place], [address], 03/05/2025 06:17:27 03/04/20 25 03/05/2025 CBC WITH DIFFE RENTI AL/PL ATELE T eos (absolute) 0.2 x10e3 /uL 0.0-0. 4 normal Not Available [facility] ([facility]) [address] [facility], [place], [address], 03/05/2025 06:17:27 03/04/20 25 03/05/2025 CBC WITH DIFFE RENTI AL/PL ATELE T baso (absolute) 0.0 x10e3 /uL 0.0-0. 2 normal Not Available [facility] ([facility]) [address] [place], [address], 03/05/2025 06:17:27 03/04/2003/05/2025 CBC WITH DIFFE RENTI AL/PL ATELE T immature granulocytes 1 % not estab. Not Available [facility] ([facility]) [address] [place], [address], 03/05/2025 06:17:27 03/04/20 25 03/05/2025 CBC WITH DIFFE RENTI AL/PL ATELE T immature grans (abs) 0.1 x10e3 /uL 0.0-0. 1 Not Available [facility] ([facility]) [address] [place], [address], 03/05/2025 06:17:27 03/04/20 25 03/05/2025 CBC WITH DIFFE RENTI AL/PL ATELE T NRBC VITAMIN MANAGER Not Available [facility] ([facility]) [address] [facility], [place], [address], 03/05/2025 06:17:27 03/04/2003/05/2025 CBC WITH DIFFE RENTI AL/PL ATELE T hematology comments: VITAMIN MANAGER Not Available [facility] ([facility]) [address] [facility], [place], [address], 03/05/2025 06:17:27 03/04/2003/05/2025 BASIC METAB OLIC PANEL (8) glucose 150 mg/dL 70-99 above high normal Not Available [facility] ([facility]) [address] [place], [address], 03/05/2025 06:17:27 03/04/2003/05/2025 BASIC METAB OLIC PANEL (8) BUN 42 mg/dL 8-27 above high normal Not Available [facility] ([facility]) [address] [place], [address], 03/05/2025 06:17:27 03/04/2003/05/2025 BASIC METAB OLIC PANEL (8) creatinine 3.49 mg/dL 0.76-1 .27 above high normal Not Available [facility] ([facility]) [address] [facility], [place], [address], 03/05/2025 06:17:27 03/04/2003/05/2025 BASIC METAB OLIC PANEL (8) eGFR 17 mL/mi n/1.7 3 >59 below low normal Not Available [facility] ([facility]) [address] [place], [address], 03/05/2025 06:17:27 03/04/2003/05/2025 BASIC METAB OLIC PANEL (8) BUN/creatini ne ratio 12 10-24 normal Not Available [facility] ([facility]) [address] [place], [address], 03/05/2025 06:17:27 03/04/2003/05/2025 BASIC METAB OLIC PANEL (8) sodium 136 mmol/ L 134-14 4 normal Not Available [facility] ([facility]) [address] [place], [address], 03/05/2025 06:17:27 03/04/2003/05/2025 BASIC METAB OLIC PANEL (8) potassium 4.7 mmol/ L 3.5-5. 2 normal Not Available [facility] ([facility]) [address] [place], [address], 03/05/2025 06:17:27 03/04/2003/05/2025 BASIC METAB OLIC PANEL (8) chloride 105 mmol/ L 96-106 normal Not Available [facility] ([facility]) [address] [place], [address], 03/05/2025 06:17:27 03/04/2003/05/2025 BASIC METAB OLIC PANEL (8) carbon dioxide, total 13 mmol/ L 20-29 below low normal Speci men quant ity insuf ficie nt for verif icati on by repea t luisito sis. Not Available [facility] ([facility]) [address] [place], [address], 03/05/2025 06:17:27 03/04/2003/05/2025 BASIC METAB OLIC PANEL (8) calcium 8.3 mg/dL 8.6-10 .2 below low normal Not Available [facility] ([facility]) [address] [place], [address], 03/05/2025 06:17:27 03/24/2003/25/2025 BMP7+ EGFR glucose 193 mg/dL 70-99 above high normal Not Available [facility] ([facility]) [address] [place], [address], 03/25/2025 11:14:10 03/24/2003/25/2025 BMP7+ EGFR BUN 27 mg/dL 8-27 normal Not Available [facility] ([facility]) [address] [place], [address], 03/25/2025 11:14:10 03/24/2003/25/2025 BMP7+ EGFR creatinine 2.75 mg/dL 0.76-1 .27 above high normal Not Available [facility] ([facility]) [address] [place], [address], 03/25/2025 11:14:10 03/24/2003/25/2025 BMP7+ EGFR eGFR 22 mL/mi n/1.7 3 >59 below low normal Not Available [facility] ([facility]) [address] [place], [address], 03/25/2025 11:14:10 03/24/2003/25/2025 BMP7+ EGFR sodium 142 mmol/ L 134-14 4 normal Not Available [facility] ([facility]) [address] [place], [address], 03/25/2025 11:14:10 03/24/2003/25/2025 BMP7+ EGFR potassium 4.8 mmol/ L 3.5-5. 2 normal Not Available [facility] ([facility]) [address] [place], [address], 03/25/2025 11:14:10 03/24/2003/25/2025 BMP7+ EGFR chloride 111 mmol/ L 96-106 above high normal Not Available [facility] ([facility]) [address] [place], [address], 03/25/2025 11:14:10 03/24/2003/25/2025 BMP7+ EGFR carbon dioxide, total 17 mmol/ L 20-29 below low normal Not Available [facility] ([facility]) [address] [facility], [place], [address], 03/25/2025 11:14:10 03/24/20 25 03/25/2025 CBC WITH DIFFE RENTI AL/PL ATELE T WBC 4.8 x10e3 /uL 3.4-10 .8 normal Not Available [facility] ([facility]) [address] [place], [address], 03/25/2025 11:14:11 03/24/2003/25/2025 CBC WITH DIFFE RENTI AL/PL ATELE T RBC 3.30 x10e6 /uL 4.14-5 .80 below low normal Not Available [facility] ([facility]) [address] [place], [address], 03/25/2025 11:14:11 03/24/2003/25/2025 CBC WITH DIFFE RENTI AL/PL ATELE T hemoglobin 9.8 g/dL 13.0-1 7.7 below low normal Not Available [facility] ([facility]) [address] [facility], [place], [address], 03/25/2025 11:14:11 03/24/2003/25/2025 CBC WITH DIFFE RENTI AL/PL ATELE T hematocrit 31.8 % 37.5-5 1.0 below low normal Not Available [facility] ([facility]) [address] [place], [address], 03/25/2025 11:14:11 03/24/2003/25/2025 CBC WITH DIFFE RENTI AL/PL ATELE T MCV 96 fL 79-97 normal Not Available [facility] ([facility]) [address] [place], [address], 03/25/2025 11:14:11 03/24/20 25 03/25/2025 CBC WITH DIFFE RENTI AL/PL ATELE T MCH 29.7 pg 26.6-3 3.0 normal Not Available [facility] ([facility]) [address] [facility], [place], [address], 03/25/2025 11:14:11 03/24/2003/25/2025 CBC WITH DIFFE RENTI AL/PL ATELE T MCHC 30.8 g/dL 31.5-3 5.7 below low normal Not Available [facility] ([facility]) [address] [facility], [place], [address], 03/25/2025 11:14:11 03/24/2003/25/2025 CBC WITH DIFFE RENTI AL/PL ATELE T RDW 13.1 % 11.6-1 5.4 Not Available [facility] ([facility]) [address] [facility], [place], [address], 03/25/2025 11:14:11 03/24/2003/25/2025 CBC WITH DIFFE RENTI AL/PL ATELE T platelets 199 x10e3 /uL 150-45 0 normal Not Available [facility] ([facility]) [address] [place], [place], [address], 03/25/2025 11:14:11 03/24/2003/25/2025 CBC WITH DIFFE RENTI AL/PL ATELE T neutrophils 54 % not estab. normal Not Available [facility] ([facility]) [address] [place], [address], 03/25/2025 11:14:11 03/24/2003/25/2025 CBC WITH DIFFE RENTI AL/PL ATELE T lymphs 31 % not estab. normal Not Available [facility] ([facility]) [address] [place], [address], 03/25/2025 11:14:11 03/24/2003/25/2025 CBC WITH DIFFE RENTI AL/PL ATELE T monocytes 12 % not estab. normal Not Available [facility] ([facility]) [address] [facility], [place], [address], 03/25/2025 11:14:11 03/24/2003/25/2025 CBC WITH DIFFE RENTI AL/PL ATELE T eos 2 % not estab. normal Not Available [facility] ([facility]) [address] [facility], [place], [address], 03/25/2025 11:14:11 03/24/2003/25/2025 CBC WITH DIFFE RENTI AL/PL ATELE T basos 1 % not estab. normal Not Available [facility] ([facility]) [address] [facility], [place], [address], 03/25/2025 11:14:11 03/24/2003/25/2025 CBC WITH DIFFE RENTI AL/PL ATELE T immature cells VITAMIN MANAGER Not Available [facility] ([facility]) [address] [place], [address], 03/25/2025 11:14:11 03/24/2003/25/2025 CBC WITH DIFFE RENTI AL/PL ATELE T neutrophils (absolute) 2.6 x10e3 /uL 1.4-7. 0 normal Not Available [facility] ([facility]) [address] [place], [address], 03/25/2025 11:14:11 03/24/2003/25/2025 CBC WITH DIFFE RENTI AL/PL ATELE T lymphs (absolute) 1.5 x10e3 /uL 0.7-3. 1 normal Not Available [facility] ([facility]) [address] [place], [address], 03/25/2025 11:14:11 03/24/202025 CBC WITH DIFFE RENTI AL/PL ATELE T monocytes(ab solute) 0.6 x10e3 /uL 0.1-0. 9 normal Not Available [facility] ([facility]) [address] [facility], [place], [address], 03/25/2025 11:14:11 03/24/2003/25/2025 CBC WITH DIFFE RENTI AL/PL ATELE T eos (absolute) 0.1 x10e3 /uL 0.0-0. 4 normal Not Available [facility] ([facility]) [address] [facility], [place], [address], 03/25/2025 11:14:11 03/24/2003/25/2025 CBC WITH DIFFE RENTI AL/PL ATELE T baso (absolute) 0.0 x10e3 /uL 0.0-0. 2 normal Not Available [facility] ([facility]) [address] [facility], [place], [address], 03/25/2025 11:14:11 03/24/2003/25/2025 CBC WITH DIFFE RENTI AL/PL ATELE T immature granulocytes 0 % not estab. Not Available [facility] ([facility]) [address] [facility], [place], [address], 03/25/2025 11:14:11 03/24/2003/25/2025 CBC WITH DIFFE RENTI AL/PL ATELE T immature grans (abs) 0.0 x10e3 /uL 0.0-0. 1 Not Available [facility] ([facility]) [address] [facility], [place], [address], 03/25/2025 11:14:11 03/24/2003/25/2025 CBC WITH DIFFE RENTI AL/PL ATELE T NRBC VITAMIN MANAGER Not Available [facility] ([facility]) [address] [facility], [place], [address], 03/25/2025 11:14:11 03/24/2003/25/2025 CBC WITH DIFFE RENTI AL/PL ATELE T hematology comments: VITAMIN MANAGER Not Available [facility] ([facility]) [address] [facility], [place], [address], 03/25/2025 11:14:11 03/24/20 25 03/25/2025 RENAL PANEL (10) BUN/creatini ne ratio 10 10-24 normal Not Available [facility] ([facility]) [address] [facility], [place], [address], 03/25/2025 11:14:12 03/24/2003/25/2025 RENAL PANEL (10) calcium 8.0 mg/dL 8.6-10 .2 below low normal Not Available [facility] ([facility]) [address] [facility], [place], [address], 03/25/2025 11:14:12 03/24/2003/25/2025 RENAL PANEL (10) phosphorus 3.5 mg/dL 2.8-4. 1 normal Not Available [facility] ([facility]) [address] [facility], [place], [address], 03/25/2025 11:14:12 03/24/20 25 03/25/2025 RENAL PANEL (10) albumin 2.7 g/dL 3.7-4. 7 below low normal Not Available [facility] ([facility]) [address] [facility], [place], [address], 03/25/2025 11:14:12 03/24/2003/25/2025 IRON AND TIBC iron bind.cap.(TI BC) 217 ug/dL 250-45 0 below low normal Not Available [facility] ([facility]) [address] [facility], [place], [address], 03/25/2025 11:14:13 03/24/20 25 03/25/2025 IRON AND TIBC UIBC 168 ug/dL 111-34 3 normal Not Available [facility] ([facility]) [address] [facility], [place], [address], 03/25/2025 11:14:13 03/24/2003/25/2025 IRON AND TIBC iron 49 ug/dL 38-169 normal Not Available [facility] ([facility]) [address] [facility], [place], [address], 03/25/2025 11:14:13 03/24/2003/25/2025 IRON AND TIBC iron saturation 23 % 15-55 normal Not Available [facility] ([facility]) [address] [facility], [place], [address], 03/25/2025 11:14:13 03/24/2003/25/2025 VITAM IN D, 25-HY [...] Elder aragon [place]: The Nat[employer] n[facility] Press . 2. Zuly de la paz MF, Makayla deras [place], Bisbetr off-F errar i COE, et al. Evalu ation , treat ment, and preve ntion of vitam in D defic iency : an Endoc rine Socie ty clini siobhan pract ice guide line. JCEM. 2010; 96(7) :1911 -30. Not Available [facility] ([facility]) [address] [facility], [place], [address], 03/25/2025 11:14:13 03/24/20 25 03/25/2025 MIGDALIA TIN ferritin 75 NG/mL 30-400 normal Not Available [facility] ([facility]) [address] [facility], [place], [address], 03/25/2025 11:14:14 03/24/20 25 03/25/2025 PTH, INTAC T PTH, intact 113 pg/mL 15-65 above high normal Not Available [facility] ([facility]) [address] [facility], [place], [address], 03/25/2025 11:14:15 04/06/20 25 04/06/2025 HbA1c (hemo globi n A1c), blood HbA1C 8.5 % Not Available [address] , [place], [address], 04/05/2025 16:20:51 04/06/20 25 04/06/2025 gluco se, finge rstic k, blood Blood Glucose: mg/dl 254 Not Available [address] , [place], [address], 04/05/2025 16:20:51 11/25/19 XR, chest , 2 view No observ ation record ed. [facility] [address] [place] [address] , [place], [address], 11/24/2024 16:35:31 12/24/19 25 12/22/2024 nucle ar stres s test No observ ation record ed. [facility] [address], [place], [address], 12/24/2024 10:49:01 12/26/19 25 12/22/2024 nucle ar stres s test No observ ation record ed. [facility] [address], [place], [address], 12/27/2024 11:02:47 12/29/19 25 12/22/2024 trans -thor acic echoc ardio gram (TTE) (PROC ) No observ ation record ed. [email or web address] [address], [place], [place], [address], 12/29/2024 13:05:12 04/21/20 25 04/21/2025 imagi ng/di agnos tic resul t No observ ation record ed. [email or web address] [address], [place], [place], [address], 04/22/2025 15:27:06 Result Notes None recorded. Problems Name Problem SNOMED Code Status Onset Date Resolution Date Notes Provider Name and Address Organization Details Recorded Time Essential hypertens ion 72289558 Active 2015 Not Available [facility] 3 11:37:22 Deep venous thrombosi s 514483033 Active 2015 Not Available [facility] 3 11:37:22 Type 2 diabetes mellitus 84413785 Completed 201505/23/2021 Marcelina Longo, DEBRANDER [address], [place], [address] , [place] - [facility] 1 10:42:42 Hyperlipi demia 50675688 Active 2015 Not Available [facility] 3 11:37:22 Impotence Active 2015 Not Available [facility] 3 11:37:22 Long-term current use of anticoagu lant 471894332 Active 2015 Not Available [facility] 3 11:37:22 Obesity 967215371 Active 2015 Not Available [facility] 3 11:37:22 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 Not Available [facility] 3 11:37:22 Periphera l vascular disease 373951057 Active 2015 Not Available [facility] 3 11:37:22 Pulmonary embolism 46758943 Completed 201504/08/2016 Paula sheridan, [place] - [facility] 6 13:01:47 Warfarin monitorin g status 041191788 Active 2016 Not Available [facility] 3 11:37:22 Vitamin D deficienc y 79921035 Active 2020 Not Available [facility] 3 11:37:22 Hyperglyc emia due to type 2 diabetes mellitus 92644176014 9109 Active 2020 Not Available [facility] 3 11:37:22 Chronic kidney disease stage 3 233230972 Active 2020 Not Available [facility] 3 11:37:22 Chronic ki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 40751126517 5 Active 2020 Not Available [facility] 3 11:37:22 Mixed hyperlipi demia 687366235 Active 2020 Not Available [facility] 3 11:37:22 History of deep vein thrombosi s 673411389 Active 2020 Not Available [facility] 3 11:37:22 History of pulmonary embolus 428529721 Active 2020 Not Available [facility] 3 11:37:22 Benign essential hypertens ion 6097779 Active 2020 Kat Carnes, DEBRANDER [address], [place], [address] , [place] - [facility] 5 10:37:04 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 Procedures Surgical History Date Name Laterality Status Provider Name and Address Organization Details Recorded Time 03/24/20 Medication Reconcilliation completed Paula Gee [facility] 03/24/2025 13:08:38 12/30/19 25 A1C level 6.9 and below completed Clive Sarmientoyles [facility] 12/29/2024 10:00:50 09/22/19 A1C level 8.0 to 9.0 completed Clive [facility] 09/21/2024 14:59:34 05/19/20 24 Advance Care Planning completed Paula Gee [facility] 05/19/2024 12:54:25 05/19/20 24 Functional Status Assessed completed Paula MARIEE [facility] 05/19/2024 12:54:25 01/21/20 24 Positive Microalbumin completed Clive Pineda [facility] 01/21/2024 10:44:25 01/21/20 24 A1C level 6.9 and below completed Clive Sarm[employer] [facility] 01/21/2024 10:48:27 10/22/19 24 A1C level 6.9 and below completed CliveLulu [facility] 10/22/2023 13:05:51 07/24/19 24 A1C level 8.0 to 9.0 completed Clive S[facility] 07/24/2023 11:56:27 04/08/20 23 A1C level 6.9 and below completed Clive S[employer] [facility] 04/08/2023 11:20:15 09/05/19 23 Medication Reconcilliation completed Paula MARIEE [facility] 09/04/2022 13:11:20 06/13/19 23 A1C level 7.0 to 7.9 completed Clive S[facility] 06/13/2022 11:10:06 03/06/20 22 A1C level 7.0 to 7.9 completed Clive Sung [employer] [facility] 03/06/2022 13:11:24 12/04/19 22 A1C level 7.0 to 7.9 completed Clive S[facility] [facility] 12/03/2021 14:19:16 11/29/19 22 Cerumen Removal completed Giovanni Glass MD [address], [place], [address], [place] [facility] 11/28/2021 10:57:35 08/30/19 22 Positive Microalbumin completed Clive Sarmientoyles [place] - [facility] 08/29/2021 09:20:08 08/30/19 [...] Systolic B/P 130-139 mm Hg completed Myah Olga [place] - [facility] 08/01/2020 16:31:11 08/01/19 21 [...] 20 A1C level 7.0 to 7.9 completed Myahalejo Goodencell [place] - [facility] 04/18/2020 16:36:39 03/22/20 [...] B/P less than 130 mm Hg completed [facility] 09/08/2019 12:57:34 09/08/19 20 Diastolic B/P less than 80 mm Hg completed [facility] 09/08/2019 12:57:39 08/11/19 20 Systolic B/P less than 130 mm Hg completed [facility] 08/11/2019 13:09:51 08/11/19 20 Diastolic B/P 80-89 mm Hg completed [facility] 08/11/2019 13:09:55 06/10/19 20 Systolic B/P less than 130 mm Hg completed [facility] 06/10/2019 12:57:49 06/10/19 20 Diastolic B/P 80-89 mm Hg completed [facility] 06/10/2019 12:57:53 10/25/19 18 Advance Care Planning completed Corine Welch RN [address], [address], [facility] 10/24/2017 08:56:49 Cataract Surgery completed Corine Welch RN [address], [place], [address], [facility] 10/24/2017 09:14:03 Imaging Results None recorded. Procedure [...] Disconti nued on: 11/13/19 12 9:59AM;U ser: [email or web address] Not Available Not Available Not Available glyburide [...] tiffanie Wilks on: 06/24/19 09;Print ed: 06/14/19 Not Available [...] Available Not Available Nasonex 50 mcg/actua tion Dundas 1 sniff bilat bid 09/15 completed Nasonex 50 mcg/actu ation nasal spray,no n-aeroso l;Prescr yvonne Status: Prescrib ed on: 09/16/19 14 11:17AM; Disconti nued Status: Disconti nued on: 09/16/19 14 3:25PM;U ser: [email or web address] ;Est. Completi on: 03/14/20 14;Indic ation: Atopic Rhinitis - ([id number] 03);Joss García fied: 09/16/19 14 11:17AM Not Available Not [...] 08/31/19 10 11:02AM; User: [email or web address];In dication : Manju ial Ocular Infectio n - (3798 );Prin [...] Not Available Not Available Easy Comfort Pen Bend 32 gauge x 5/32 USE DIRECTED DAILY [...] Updated DateTime 5 182.88 cm 25.8 kg/m2 40819.5 5 g 98.5 [degF] 100 /min 97 % 18 /min 0 110/60 mm[Hg] Paula Gee [facility] 5 13:09:19 Date Recorded Body height Body mass index (BMI) Body weight Body temperature Heart rate Oxygen saturation Respiratory rate Pain severity - 0-10 verbal numeric rating [Score] - Reported Systolic And Diastolic Provider Name and Address Organization Details Last Updated DateTime 5 182.88 cm 26.2 kg/m2 61356.7 3 g 98.3 [degF] 75 /min 96 % 18 /min 0 138/78 mm[Hg] Clive Sung [place] - [facility] 5 09:57:27 Date Recorded Body height Body mass index (BMI) Body weight Body temperature Heart rate Oxygen saturation Respiratory rate Pain severity - 0-10 verbal numeric rating [Score] - Reported Systolic And Diastolic Provider Name and Address Organization Details Last Updated DateTime 5 182.88 cm 26.2 kg/m2 36876.3 3 g 97.9 [degF] 72 /min 97 % 18 /min 0 130/82 mm[Hg] Paula Gee [facility] 5 10:45:56 Date Recorded Body height Body mass index (BMI) Body weight Body temperature Heart rate Oxygen saturation Respiratory rate Pain severity - 0-10 verbal numeric rating [Score] - Reported Systolic And Diastolic Provider Name and Address Organization Details Last Updated DateTime 5 182.88 cm 26.6 kg/m2 02001.1 g 98.7 [degF] 70 /min 97 % 20 /min 0 100/70 mm[Hg] Paula Gee [place] - [facility] 5 13:12:31 Date Recorded Body height Body mass index (BMI) Body weight Body temperature Heart rate Oxygen saturation Respiratory rate Pain severity - 0-10 verbal numeric rating [Score] - Reported Systolic And Diastolic Provider Name and Address Organization Details Last Updated DateTime 5 182.88 cm 26.6 kg/m2 90826.1 g 97.7 [degF] 72 /min 96 % 18 /min 0 122/70 mm[Hg] Clive Sung [place] - [facility] 5 09:50:24 Social History Question Answer Notes LastModified by Organization Details LastModified Time Tobacco Smoking Status Former Smoker [place] [facility] 04/08/2016 13:03:41 Able To [...] Or The Highest Degree You Have Received? [id number] Information not available 01/18/2021 Swimming/diving No Informati [...] anxious, or unable to sleep at night)? [id number] Information not available 01/18/2021 Do you have [...] colitis N Cerebrovascular Disease N Depression N Guillain-[place] N Sleep Apnea N Aneurysm N Bronchitis N Heart Disease N Suicidal Ideation N Pre-Eclampsia N Hypertension Y Osteoporosis N Immunizations Vaccine Type Date Status Note Provider Nam e and Address Organization Details Recorded Time COVID-19, mRNA, LNP-S, PF, 100 mcg/0.5mL dose or 50 mcg/0.25mL dose completed [place] - [facility] 05/26/2024 10:16:32 COVID-19, mRNA, LNP-S, PF, 100 mcg/0.5mL dose or 50 mcg/0.25mL dose 1 completed Radha [place], [place] - [facility] 05/26/2024 10:16:32 Influenza, split virus, trivalent, PF 2 completed Radha Whittaker null, [place] - [facility] 05/26/2024 10:16:32 Influenza, high-dose, quadrivalent, PF 0 completed Shahnaz Herman APRN [address], [place], [address], [place] [facility] 03/14/2020 16:08:39 Influenza, high-dose, quadrivalent, PF 1 completed Giovanni Glass MD [address], [place], [address], [place] [facility] 03/21/2021 14:31:50 influenza, unspecified formulation 0 completed Not Available [facility] 02/01/2023 11:37:23 influenza, unspecified formulation 1 completed Not Available [facility] 02/01/2023 11:37:23 influenza, unspecified formulation 2 completed Radha sheridan, [place] - [facility] 05/26/2024 10:16:32 influenza, unspecified formulation 3 completed Not Available [facility] 02/01/2023 11:37:23 influenza, unspecified formulation 4 completed Not Available [facility] 02/01/2023 11:37:23 influenza, unspecified formulation 5 completed Not Available [facility] 02/01/2023 11:37:23 influenza, unspecified formulation 8 completed Not Available [facility] 02/01/2023 11:37:23 influenza, unspecified formulation 9 completed Not Available [facility] 02/01/2023 11:37:23 Influenza, split virus, quadrivalent, preservative 7 completed Not Available [facility] 06/26/2019 03:54:42 COVID-19, mRNA, LNP-S, PF, 100 mcg/0.5mL dose or 50 mcg/0.25mL dose 2 completed Giovanni Glass MD [address], [place], [address], [place] [facility] 06/21/2021 11:12:07 Influenza, high-dose, quadrivalent, PF 2 completed Marcelina Longo APRN [address], [place], [address], [place] [facility] 03/06/2022 13:31:11 Influenza, high-dose, quadrivalent, PF 3 completed Paula [place], [place] [facility] 03/13/2023 09:48:17 Influenza, split virus, quadrivalent, preservative 6 completed Not Available [facility] 02/01/2023 11:37:23 zoster live 9 completed Not Available [facility] 02/01/2023 11:37:23 Influenza, high-dose, trivalent, PF 4 completed Debra Barajas MD [address], [place], [address], [place] [facility] 03/09/2024 15:47:29 Tdap 4 completed Paula [place], [place] [facility] 05/19/2024 16:57:05 Pneumococcal conjugate PCV20, polysaccharide EWQ370 conjugate, adjuvant, PF 4 completed Paula [place], [place] [facility] 05/19/2024 16:57:56 Influenza, high-dose, trivalent, PF 5 completed Giovanni Glass MD [address], [place], [address], [place] [facility] 03/24/2025 13:57:50 Influenza, high-dose, trivalent, PF 8 completed Not Available [facility] 06/26/2019 03:55:10 SARS-COV-2 (COVID-19) vaccine, UNSPECIFIED 1 completed Radha [place], [place] - [facility] 05/26/2024 10:16:32 SARS-COV-2 (COVID-19) vaccine, UNSPECIFIED 1 completed Radha [place], [place] [facility] 05/26/2024 10:16:32 Influenza, high-dose, trivalent, PF 9 completed Not Available [facility] 06/26/2019 03:56:04 Past Encounters Encounter ID Performer Location Encounter Start Date Encounter Closed Date Diagnosis/Indication Diagnosis SNOMED-CT Code Diagnosis ICD10 Code Diagnosis IMO Codes Diagnosis Note [id number] [facility] [address] [place] [address] 02/23/2014 00:00:00 [id number] [facility] [address] [place] [address] 03/03/2014 00:00:00 [id number] [facility] [address] [place] [address] 04/22/2014 00:00:00 [id number] [facility] [address] [place] [address] 05/25/2014 00:00:00 [id number] [facility] [address] [place] [address] 06/29/2014 00:00:00 [id number] [facility] [address] [place] [address] 07/13/2014 00:00:00 [id number] [facility] [address] [place] [address] 08/05/2014 00:00:00 [id number] [facility] [address] [place] [address] 09/02/2014 00:00:00 [id number] [facility] [address] [place] [address] 09/30/2014 00:00:00 [id number] [facility] [address] [place] [address] 05/24/2015 00:00:00 [id number] [facility] [address] [place] [address] 10/28/2014 00:00:00 [id number] [facility] [address] [place] [address] 06/21/2015 00:00:00 [id number] [facility] [address] [place] [address] 07/26/2015 00:00:00 [id number] [facility] [address] [place] [address] 11/25/2014 00:00:00 [id number] [facility] [address] [place] [address] 12/23/2014 00:00:00 [id number] [facility] [address] [place] [address] 02/03/2014 00:00:00 [id number] [facility] [address] [place] [address] 01/25/2015 00:00:00 [id number] [facility] [address] [place] [address] 02/23/2015 00:00:00 [id number] [facility] [address] [place] [address] 02/23/2015 00:00:00 [id number] [facility] [address] [place] [address] 03/23/2015 00:00:00 [id number] [facility] [address] [place] [address] 04/20/2015 00:00:00 [id number] [facility] [address] [place] [address] 06/29/2014 00:00:00 [id number] [facility] [address] [place] [address] 05/24/2015 00:00:00 [id number] [facility] [address] [place] [address] 10/28/2014 00:00:00 [id number] [facility] [address] [place] [address] 11/25/2014 00:00:00 [id number] [facility] [address] [place] [address] 11/01/2015 00:00:00 [id number] [facility] [address] [place] [address] 11/22/2015 00:00:00 [id number] [facility] [address] [place] [address] 07/26/2015 00:00:00 [id number] [facility] [address] [place] [address] 12/20/2015 00:00:00 [id number] [facility] [address] [place] [address] 08/23/2015 00:00:00 [id number] [facility] [address] [place] [address] 09/20/2015 00:00:00 [id number] [facility] [address] [place] [address] 01/17/2016 00:00:00 [id number] [facility] [address] [place] [address] 10/18/2015 00:00:00 [id number] [facility] [address] [place] [address] 02/14/2016 00:00:00 [id number] [facility] [address] [place] [address] 11/01/2015 00:00:00 [id number] [facility] [address] [place] [address] 04/24/2010 00:00:00 [id number] [facility] [address] [place] [address] 06/04/2010 00:00:00 [id number] [facility] [address] [place] [address] 06/11/2010 00:00:00 [id number] [facility] [address] [place] [address] 5 06/21/2010 00:00:00 [id number] [facility] [address] [place] [address] 5 08/03/2010 00:00:00 [id number] [facility] [address] [place] [address] 5 08/22/2010 00:00:00 [id number] [facility] [address] [place] [address] 5 12/26/2010 00:00:00 [id number] [facility] [address] [place] [address] 5 01/11/2011 00:00:00 [id number] [facility] [address] [place] [address] 5 01/16/2011 00:00:00 [id number] [facility] [address] [place] [address] 5 01/16/2011 00:00:00 [id number] [facility] [address] [place] [address] 5 05/24/2011 00:00:00 [id number] [facility] [address] [place] [address] 5 07/03/2011 00:00:00 [id number] [facility] [address] [place] [address] 5 07/24/2011 00:00:00 [id number] [facility] [address] [place] [address] 5 09/06/2011 00:00:00 [id number] [facility] [address] [place] [address] 5 10/16/2011 00:00:00 [id number] [facility] [address] [place] [address] 5 11/13/2011 00:00:00 [id number] [facility] [address] [place] [address] 5 11/21/2011 00:00:00 [id number] [facility] [address] [place] [address] 5 12/06/2011 00:00:00 [id number] [facility] [address] [place] [address] 5 01/03/2012 00:00:00 [id number] [facility] [address] [place] [address] 5 03/12/2012 00:00:00 [id number] [facility] [address] [place] [address] 5 01/03/2012 00:00:00 [id number] [facility] [address] [place] [address] 5 04/22/2012 00:00:00 [id number] [facility] [address] [place] [address] 5 02/12/2012 00:00:00 [id number] [facility] [address] [place] [address] 5 05/08/2012 00:00:00 [id number] [facility] [address] [place] [address] 5 05/20/2012 00:00:00 [id number] [facility] [address] [place] [address] 5 12/08/2013 00:00:00 [id number] [facility] [address] [place] [address] 5 10/22/2012 00:00:00 [id number] [facility] [address] [place] [address] 5 03/17/2013 00:00:00 [id number] [facility] [address] [place] [address] 5 03/19/2013 00:00:00 [id number] [facility] [address] [place] [address] 5 03/26/2013 00:00:00 [id number] [facility] [address] [place] [address] 5 04/02/2013 00:00:00 [id number] [facility] [address] [place] [address] 5 04/09/2013 00:00:00 [id number] [facility] [address] [place] [address] 5 04/09/2013 00:00:00 [id number] [facility] [address] [place] [address] 5 04/23/2013 00:00:00 [id number] [facility] [address] [place] [address] 5 05/28/2012 00:00:00 [id number] [facility] [address] [place] [address] 5 05/26/2013 00:00:00 [id number] [facility] [address] [place] [address] 5 06/04/2012 00:00:00 [id number] [facility] [address] [place] [address] 5 06/30/2013 00:00:00 [id number] [facility] [address] [place] [address] 5 09/30/2012 00:00:00 [id number] [facility] [address] [place] [address] 5 10/22/2012 00:00:00 [id number] [facility] [address] [place] [address] 5 06/30/2013 00:00:00 [id number] [facility] [address] [place] [address] 5 07/28/2013 00:00:00 [id number] [facility] [address] [place] [address] 5 12/08/2013 00:00:00 [id number] [facility] [address] [place] [address] 5 08/25/2013 00:00:00 [id number] [facility] [address] [place] [address] 5 09/15/2013 00:00:00 [id number] [facility] [address] [place] [address] 5 10/07/2013 00:00:00 [id number] [facility] [address] [place] [address] 5 11/04/2013 00:00:00 [id number] [facility] [address] [place] [address] 5 12/08/2013 00:00:00 [id number] Giovanni Glass MD [address] [place] [address] 04/10/2016 08:48:54 04/10/2016 10:08:55 Deep venous thrombosis 291386378 I82.821 [id number] Giovanni Glass MD [address] [place] [address] 7 05/10/2016 09:28:10 05/10/2016 10:05:41 Deep venous thrombosis 933784856 I82.409 Body mass index 30+ - obesity 661239120 Z68.30 [id number] Giovanni Glass MD [address] [place] [address] 7 06/14/2016 10:01:53 06/14/2016 10:38:00 Deep venous thrombosis 254248343 I82.409 Long-term current use of anticoagulant 912523918 Z79.01 Warfarin m onitoring status 375236475 Z51.81 Body mass index 30+ - obesity 710115943 Z68.30 [id number] Giovanni Glass MD [address] [place] [address] 7 07/12/2016 09:44:38 07/12/2016 10:27:11 Deep venous thrombosis 290609960 I82.409 Long-term current use of anticoagulant 437933587 Z79.01 Warfarin m onitoring status 226861214 Z51.81 Body mass index 30+ - obesity 284502452 Z68.30 [id number] Giovanni Glass MD [address] [place] [address] 7 08/09/2016 09:58:16 08/09/2016 10:50:16 Deep venous thrombosis 539777213 I82.409 Warfarin m onitoring status 059051428 Z51.81 Long-term current use of anticoagulant 108058780 Z79.01 Body mass index 30+ - obesity 000318669 Z68.30 [id number] Giovanni Glass MD [address] [place] [address] 09/06/2016 09:04:29 09/06/2016 10:28:19 Deep venous thrombosis 889958829 I82.409 Warfarin m onitoring status 107414665 Z51.81 Long-term current use of anticoagulant 932399911 Z79.01 Body mass index 30+ - obesity 648768918 Z68.30 [id number] Giovanni Glass MD [address] [place] [address] 10/09/2016 12:24:41 10/09/2016 13:13:21 Deep venous thrombosis 826474406 I82.409 Warfarin m onitoring status 564411884 Z51.81 Long-term current use of anticoagulant 529747186 Z79.01 Body mass index 30+ - obesity 119282736 Z68.30 [id number] Giovanni Glass MD [address] [place] [address] 7 11/07/2016 13:32:27 11/07/2016 14:11:28 Deep venous thrombosis 836955746 I82.409 Warfarin m onitoring status 081234016 Z51.81 Long-term current use of anticoagulant 597557281 Z79.01 Body mass index 30+ - obesity 636498382 Z68.30 [id number] Giovanni Glass MD [address] [place] [address] 11/28/2016 12:29:41 11/28/2016 13:39:31 Deep venous thrombosis 808224363 I82.409 Peripheral vascular disease 029451362 I73.9 Type 2 joaquin betes mellitus 52714521 E11.9 Hyperlipidemia 06898200 E78.5 Essential hypertension 39563835 I10 Acute urin lupillo tract infection 522697446 N39.0 [id number] Giovanni Glass MD [address] [place] [address] 12/12/2016 08:17:34 12/12/2016 08:55:13 Anticoagulant therapy 873630549 Z79.01 Warfarin m onitoring status 959467609 Z51.81 Long-term drug therapy 981669847 Z79.899 Deep venou s thrombosis 075480220 I82.409 Body mass index 30+ - obesity 226482239 Z68.30 [id number] Giovanni Glass MD [address] [place] [address] 01/10/2017 08:54:13 01/10/2017 09:21:30 Deep venous thrombosis 245240202 I82.409 Warfarin m onitoring status 581662141 Z51.81 Long-term current use of anticoagulant 008138998 Z79.01 Body mass index 30+ - obesity 798252839 Z68.30 [id number] Giovanni Glass MD [address] [place] [address] 02/07/2017 10:36:25 02/07/2017 11:24:57 Deep venous thrombosis 488723761 I82.409 Warfarin m onitoring status 595290245 Z51.81 Long-term current use of anticoagulant 587072812 Z79.01 Body mass index 30+ - obesity 270045536 Z68.30 [id number] Giovanni Glass MD [address] [place] [address] 7 03/07/2017 10:25:38 03/07/2017 10:49:50 Deep venous thrombosis 089331156 I82.409 Long-term current use of anticoagulant 176066087 Z79.01 Warfarin m onitoring status 262298134 Z51.81 Body mass index 30+ - obesity 159471632 Z68.30 [id number] Valeria Villafana MD [address] [place] [address] 03/27/2017 10:49:48 03/27/2017 11:13:59 Administration of influenza vaccine 51283469 Z23 [id number] Giovanni Glass MD [address] [place] [address] 04/04/2017 10:08:32 04/04/2017 10:58:58 Deep venous thrombosis 178418343 I82.409 Warfarin m onitoring status 356586783 Z51.81 Long-term current use of anticoagulant 856070013 Z79.01 Allergic rhinitis 976310 04 J30.9 Body mass index 30+ - obesity 801460177 Z68.30 [id number] Giovanni Glass MD [address] [place] [address] 7 04/30/2017 10:30:16 04/30/2017 11:28:41 Deep venous thrombosis 047633417 I82.409 Body mass index 30+ - obesity 082395830 Z68.30 Warfarin m onitoring status 378221048 Z51.81 Long-term current use of anticoagulant 941720435 Z79.01 [id number] Giovanni Glass MD [address] [place] [address] 05/29/2017 13:30:45 05/29/2017 13:54:39 Deep venous thrombosis 925108527 I82.409 Acute bronchitis 8359432 2 J20.9 Warfarin m onitoring status 860649381 Z51.81 Long-term current use of anticoagulant 401821739 Z79.01 Body mass index 30+ - obesity 221553241 Z68.30 [id number] Giovanni Glass MD [address] [place] [address] 06/26/2017 10:29:54 06/26/2017 11:22:41 Deep venous thrombosis 286247023 I82.409 Acute bronchitis 0974984 2 J20.9 Warfarin m onitoring status 117496844 Z51.81 Long-term current use of anticoagulant 655740475 Z79.01 Body mass index 30+ - obesity 907528171 Z68.30 [id number] Giovanni Glass MD [address] [place] [address] 07/02/2017 08:44:52 07/02/2017 11:03:42 Hyperlipidemia 40521452 E78.5 Essential hypertension 33322132 I10 Deep venou s thrombosis 398460239 I82.409 Acute bronchitis 9926493 2 J20.9 Warfarin m onitoring status 862223328 Z51.81 Long-term current use of anticoagulant 324218681 Z79.01 Body mass index 30+ - obesity 836941157 Z68.30 Varicose v eins of lower extremity with inflammation 46575119 I83.12 resolving [id number] Giovanni Glass MD [address] [place] [address] 07/24/2017 09:20:59 07/24/2017 10:19:32 Deep venous thrombosis 329621242 I82.409 Warfarin m onitoring status 464473680 Z51.81 Long-term current use of anticoagulant 520094395 Z79.01 Body mass index 30+ - obesity 561287089 Z68.30 [id number] Giovanni Glass MD [address] [place] [address] 08/27/2017 15:21:36 08/27/2017 15:47:42 Warfarin monitoring status 608871974 Z51.81 Deep venou s thrombosis 842806609 I82.409 Long-term current use of anticoagulant 089535761 Z79.01 Body mass index 30+ - obesity 364487567 Z68.31 [id number] Giovanni Glass MD [address] [place] [address] 7 09/26/2017 09:25:52 09/26/2017 11:16:03 Deep venous thrombosis 242639533 I82.409 Warfarin m onitoring status 163380484 Z51.81 Long-term current use of anticoagulant 560646849 Z79.01 Body mass index 30+ - obesity 318674543 Z68.30 [id number] Giovanni Glass MD [address] [place] [address] 10/24/2017 08:42:13 10/24/2017 09:57:47 Adult health examination 701756518 Z00.00 Depression screening 171 521204 Z13.89 Examinatio n of blood pressure 281601874 Z01.31 Diet education 07383591 Z71.3 Body mass index 30+ - obesity 339109978 Z68.30 Deep venou s thrombosis 282643321 I82.409 Long-term current use of anticoagulant 314090528 Z79.01 Warfarin m onitoring status 389424304 Z51.81 Peripheral vascular disease 129650544 I73.9 Hyperlipidemia 48521965 E78.5 [id number] Thierno Fischer MD [address] [place] [address] 7 11/13/2017 08:46:11 11/13/2017 09:56:28 Dysuria 80912240 R30.0 Urinary tr act infectious disease 61219307 N39.0 [id number] Giovanni Glass MD [address] [place] [address] 11/21/2017 08:52:55 11/21/2017 09:41:02 Deep venous thrombosis 729000721 I82.409 Warfarin m onitoring status 626761390 Z51.81 Long-term current use of anticoagulant 896574277 Z79.01 Body mass index 30+ - obesity 743685691 Z68.30 [id number] Giovanni Glass MD [address] [place] [address] 12/19/2017 10:06:09 12/19/2017 10:45:38 Deep venous thrombosis 505667041 I82.409 Warfarin m onitoring status 184187490 Z51.81 Long-term current use of anticoagulant 791787883 Z79.01 Body mass index 30+ - obesity 623818138 Z68.31 [id number] Gioavnni Glass MD [address] [place] [address] 01/16/2018 10:06:05 01/16/2018 10:38:21 Deep venous thrombosis 368200689 I82.409 Warfarin m onitoring status 024820164 Z51.81 Long-term current use of anticoagulant 819708614 Z79.01 Body mass index 30+ - obesity 886248326 Z68.31 [id number] Giovanni Glass MD [address] [place] [address] 7 01/28/2018 08:53:17 01/28/2018 11:09:10 Acute otitis externa 87923125 H60.501 Hyperlipidemia 07925052 E78.5 Body mass index 30+ - obesity 485547042 Z68.31 [id number] Giovanni Glass MD [address] [place] [address] 02/11/2018 10:17:49 02/11/2018 10:48:37 Deep venous thrombosis 195296310 I82.409 Warfarin m onitoring status 911159045 Z51.81 Body mass index 30+ - obesity 809324433 Z68.31 Long-term current use of anticoagulant 572431931 Z79.01 [id number] Giovanni Glass MD [address] [place] [address] 03/11/2018 09:44:15 03/11/2018 11:23:13 Warfarin monitoring status 511683583 Z51.81 Long-term drug therapy 480986501 Z79.899 Anticoagulant therapy 18 3119341 Z79.01 Administra tion of influenza vaccine 71994036 Z23 Deep venou s thrombosis 775657460 I82.732 [id number] Giovanni Glass MD [address] [place] [address] 04/08/2018 09:38:25 04/08/2018 10:55:32 Deep venous thrombosis 068686668 I82.409 Body mass index 30+ - obesity 964165954 Z68.31 Warfarin m onitoring status 355649167 Z51.81 Long-term current use of anticoagulant 867520865 Z79.01 [id number] Giovanni Glass MD [address] [place] [address] 04/22/2018 12:51:26 04/22/2018 14:05:20 Seborrheic dermatitis 39671662 L21.9 Body mass index 30+ - obesity 891009152 Z68.31 [id number] Giovanni Glass MD [address] [place] [address] 7 05/08/2018 09:48:47 05/08/2018 10:27:46 Deep venous thrombosis 228765889 I82.409 Warfarin m onitoring status 281132178 Z51.81 Long-term current use of anticoagulant 188230976 Z79.01 Body mass index 30+ - obesity 945903898 Z68.32 [id number] Giovanni Glass MD [address] [place] [address] 06/11/2018 08:31:28 06/11/2018 09:41:07 Deep venous thrombosis 370524107 I82.409 Warfarin m onitoring status 872233299 Z51.81 Long-term current use of anticoagulant 561260275 Z79.01 Allergic rhinitis 281341 04 J30.9 Body mass index 30+ - obesity 302679603 Z68.32 [id number] Giovanni Glass MD [address] [place] [address] 07/10/2018 08:41:58 07/10/2018 09:25:59 Deep venous thrombosis 380410545 I82.409 Warfarin m onitoring status 533645636 Z51.81 Long-term current use of anticoagulant 428066898 Z79.01 Body mass index 30+ - obesity 251167370 Z68.31 [id number] Giovanni Glass MD [address] [place] [address] 08/07/2018 08:07:24 08/07/2018 09:12:34 Deep venous thrombosis 009600391 I82.409 Warfarin m onitoring status 309451893 Z51.81 Long-term current use of anticoagulant 758573805 Z79.01 Body mass index 30+ - obesity 726925524 Z68.31 [id number] Giovanni Galss MD [address] [place] [address] 08/19/2018 09:38:58 08/19/2018 10:08:29 Deep venous thrombosis 353470350 I82.409 Warfarin m onitoring status 993532289 Z51.81 Long-term current use of anticoagulant 011796658 Z79.01 Body mass index 30+ - obesity 454441172 Z68.31 [id number] Giovanni Glass MD [address] [place] [address] 09/18/2018 09:23:10 09/18/2018 10:27:23 Deep venous thrombosis 522632206 I82.409 Warfarin m onitoring status 594421735 Z51.81 Long-term current use of anticoagulant 367945326 Z79.01 Body mass index 30+ - obesity 087733890 Z68.30 [id number] Giovanni Glass MD [address] [place] [address] 10/16/2018 10:50:26 10/16/2018 11:15:43 Deep venous thrombosis 912031377 I82.409 Warfarin m onitoring status 739123680 Z51.81 Long-term current use of anticoagulant 904872526 Z79.01 Body mass index 25-29 - overweight 590585757 Z68.29 [id number] Giovanni Glass MD [address] [place] [address] 7 11/19/2018 09:34:30 11/19/2018 10:05:05 Long-term drug therapy 493453736 Z79.899 Anticoagulant therapy 18 2792772 Z79.01 Deep venou s thrombosis 211852990 I82.409 Long-term current use of anticoagulant 033832609 Z79.01 Warfarin m onitoring status 694146956 Z51.81 Acute bronchitis 4088368 2 J20.9 Body mass index 25-29 - overweight 474696558 Z68.29 [id number] Giovanni Glass MD [address] [place] [address] 12/17/2018 09:58:33 12/17/2018 10:39:51 Deep venous thrombosis 230615109 I82.409 Warfarin m onitoring status 588623662 Z51.81 Long-term current use of anticoagulant 205588534 Z79.01 Body mass index 25-29 - overweight 565278137 Z68.29 [id number] Giovanni Glass MD [address] [place] [address] 01/14/2019 10:07:47 01/14/2019 10:32:03 Deep venous thrombosis 826197106 I82.409 Obesity 172439265 E66.9 Warfarin m onitoring status 444019917 Z51.81 Long-term current use of anticoagulant 563169447 Z79.01 Body mass index 25-29 - overweight 654823325 Z68.29 [id number] Giovnani Glass MD [address] [place] [address] 02/05/2019 09:00:04 02/05/2019 09:49:44 Acute gastroenteritis 79166268 K52.9 Body mass index 25-29 - overweight 325880076 Z68.28 [id number] Giovanni Glass MD [address] [place] [address] 02/11/2019 09:25:32 02/11/2019 09:57:08 Deep venous thrombosis 327257216 I82.409 Long-term current use of anticoagulant 601356530 Z79.01 Warfarin m onitoring status 664640246 Z51.81 Body mass index 25-29 - overweight 597961500 Z68.29 [id number] Giovanni Glass MD [address] [place] [address] 7 03/12/2019 10:32:19 03/12/2019 11:15:10 Deep venous thrombosis 023512496 I82.409 Obesity 783029238 E66.9 Administra tion of influenza vaccine 91258212 Z23 Warfarin m onitoring status 447302536 Z51.81 Long-term current use of anticoagulant 783439077 Z79.01 Body mass index 25-29 - overweight 755321985 Z68.29 [id number] Giovanni Glass MD [address] [place] [address] 04/09/2019 13:34:55 04/09/2019 14:05:53 Deep venous thrombosis 754553729 I82.409 Obesity 470714646 E66.9 Long-term current use of anticoagulant 597503504 Z79.01 Warfarin m onitoring status 322069714 Z51.81 Body mass index 30+ - obesity 104909531 Z68.32 [id number] Giovanni Glass MD [address] [place] [address] 7 05/12/2019 12:26:30 05/12/2019 13:16:15 Deep venous thrombosis 597167704 I82.409 Obesity 383763693 E66.9 Long-term current use of anticoagulant 110113839 Z79.01 Warfarin m onitoring status 445372249 Z51.81 Body mass index 25-29 - overweight 227087889 Z68.29 [id number] Giovanni Glass MD [address] [place] [address] 06/10/2019 12:12:28 06/10/2019 13:11:56 Deep venous thrombosis 437933652 I82.409 Obesity 778814010 E66.9 Long-term current use of anticoagulant 482959125 Z79.01 Warfarin m onitoring status 297061837 Z51.81 Body mass index 30+ - obesity 562118790 Z68.30 [id number] Giovanni Glass MD [address] [place] [address] 7 07/14/2019 10:14:09 07/14/2019 11:05:57 Warfarin monitoring status 928404563 Z51.81 Long-term current use of anticoagulant 702270906 Z79.01 Deep venou s thrombosis 933230770 I82.409 Body mass index 25-29 - overweight 891833399 Z68.29 [id number] Giovanni Glass MD [address] [place] [address] 08/11/2019 12:52:26 08/11/2019 13:23:10 Deep venous thrombosis 075440546 I82.409 Obesity 371334363 E66.9 Long-term current use of anticoagulant 224751550 Z79.01 Warfarin m onitoring status 325060937 Z51.81 Body mass index 25-29 - overweight 894338887 Z68.29 [id number] Giovanni Glass MD [address] [place] [address] 7 09/08/2019 12:15:08 09/08/2019 13:15:13 Deep venous thrombosis 367869151 I82.409 Obesity 079593650 E66.9 Warfarin m onitoring status 052020324 Z51.81 Long-term current use of anticoagulant 290952388 Z79.01 Body mass index 30+ - obesity 638162948 Z68.30 [id number] Giovanni Glass MD [address] [place] [address] 10/08/2019 13:24:47 10/08/2019 14:33:30 Deep venous thrombosis 201188791 I82.409 Obesity 347814888 E66.9 Dysuria 96034979 R30.9 Acute urin lupillo tract infection 992420647 N39.0 Long-term current use of anticoagulant 630822246 Z79.01 Warfarin m onitoring status 597789196 Z51.81 Body mass index 25-29 - overweight 742889023 Z68.28 [id number] Giovanni Glass MD [address] [place] [address] 11/17/2019 13:14:27 11/17/2019 14:11:38 Deep venous thrombosis 450901402 I82.409 Obesity 483583862 E66.9 Long-term current use of anticoagulant 150670646 Z79.01 Warfarin m onitoring status 164617029 Z51.81 [id number] Giovanni Glass MD [address] [place] [address] 7 12/16/2019 13:04:29 12/16/2019 13:27:02 Deep venous thrombosis 832693498 I82.409 Obesity 009006425 E66.9 Long-term current use of anticoagulant 470328285 Z79.01 Warfarin m onitoring status 926854324 Z51.81 Body mass index 30+ - obesity 100415089 Z68.30 Gastroesop hageal reflux disease without esophagitis 758140125 K21.9 [id number] Giovanni Glass MD [address] [place] [address] 01/20/2020 12:52:16 01/20/2020 13:32:27 Obesity 275587730 E66.9 Deep venou s thrombosis 633563708 I82.409 Warfarin m onitoring status 162035192 Z51.81 Long-term current use of anticoagulant 865765159 Z79.01 Anterior epistaxis 29265 4002 R04.0 [id number] Giovanni Glass MD [address] [place] [address] 02/23/2020 10:31:42 02/23/2020 11:08:46 Obesity 291370655 E66.9 Deep venou s thrombosis 484451473 I82.409 Long-term current use of anticoagulant 586100830 Z79.01 Warfarin m onitoring status 225144113 Z51.81 Body mass index 25-29 - overweight 288522159 Z68.29 Allergic rhinitis 148631 04 J30.9 [id number] Shahnaz Herman APRN [address] [place] [address] 03/14/2020 15:12:46 03/14/2020 15:48:27 Administration of influenza vaccine 24075013 Z23 [id number] Giovanni Glass MD [address] [place] [address] 7 03/22/2020 10:20:39 03/22/2020 11:08:43 Deep venous thrombosis 206879701 I82.409 Obesity 722160168 E66.9 Type 2 joaquin betes mellitus 48943901 E11.9 Long-term current use of anticoagulant 640565723 Z79.01 Warfarin m onitoring status 413918886 Z51.81 Body mass index 25-29 - overweight 956732374 Z68.29 [id number] Marcelina Longo APRN [address] [place] [address] 04/18/2020 16:16:39 04/18/2020 18:21:23 Hyperglycemia due to type 2 diabetes mellitus 2858013752 58130 E11.65 Chronic ki dney disease stage 3 421433607 N18.30 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 5466345484 05 E11.22 Mixed hyperlipidemia 267 016712 E78.2 History of deep vein thrombosis 171595934 Z86.718 History of pulmonary embolus 776490283 Z86.711 Benign ess ential hypertension 5452271 I10 Vitamin D deficiency 347 64931 E55.9 Obesity 290368802 E66.9 Peripheral vascular disease 328141169 I73.9 Body mass index 25-29 - overweight 661663785 Z68.29 Peripheral neuropathy due to type 2 diabetes mellitus 2721369435 107 E11.42 [id number] Giovanni Glass MD [address] [place] [address] 04/27/2020 09:55:53 04/27/2020 10:28:31 Anticoagulant therapy 669468801 Z79.01 Warfarin m onitoring status 987429698 Z51.81 Long-term drug therapy 089768342 Z79.899 Deep venou s thrombosis 010236860 I82.409 Seborrheic dermatitis 50 864971 L21.9 [id number] Giovanni Glass MD [address] [place] [address] 05/25/2020 09:25:00 05/25/2020 09:58:13 Deep venous thrombosis 811718779 I82.409 Obesity 444661372 E66.9 Long-term current use of anticoagulant 448469941 Z79.01 Warfarin m onitoring status 260187800 Z51.81 Body mass index 25-29 - overweight 429124915 Z68.29 [id number] Giovanni Glass MD [address] [place] [address] 06/28/2020 08:27:16 06/28/2020 09:13:33 Warfarin monitoring status 249495835 Z51.81 Deep venou s thrombosis 208608998 I82.409 Long-term current use of anticoagulant 910683081 Z79.01 Body mass index 25-29 - overweight 901447062 Z68.28 [id number] Giovanni Glass MD [address] [place] [address] 07/26/2020 08:26:04 07/26/2020 09:23:56 Deep venous thrombosis 477505696 I82.409 Obesity 690281361 E66.9 Long-term current use of anticoagulant 498442890 Z79.01 Warfarin m onitoring status 117106990 Z51.81 Body mass index 25-29 - overweight 318197696 Z68.28 [id number] Marcelina Longo APRN [address] [place] [address] 08/01/2020 15:43:18 08/01/2020 16:45:43 Hyperglycemia due to type 2 diabetes mellitus 0268015718 52663 E11.65 Chronic ki dney disease stage 3 055933863 N18.30 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 1708119404 05 E11.22 Mixed hyperlipidemia 267 023009 E78.2 History of deep vein thrombosis 083683815 Z86.718 History of pulmonary embolus 529906793 Z86.711 Benign ess ential hypertension 2365802 I10 Vitamin D deficiency 347 72755 E55.9 Obesity 807759025 E66.9 Peripheral vascular disease 469089900 I73.9 Body mass index 25-29 - overweight 180118433 Z68.29 Peripheral neuropathy due to type 2 diabetes mellitus 9337471707 107 E11.42 [id number] Giovanni Glass MD [address] [place] [address] 08/24/2020 08:23:21 08/24/2020 09:45:54 Deep venous thrombosis 626487708 I82.409 Obesity 360436463 E66.9 Long-term current use of anticoagulant 854344286 Z79.01 Warfarin m onitoring status 784980298 Z51.81 Body mass index 25-29 - overweight 551985291 Z68.28 [id number] Giovanni Glass MD [address] [place] [address] 09/21/2020 08:35:33 09/21/2020 09:25:26 Deep venous thrombosis 591830767 I82.409 Long-term current use of anticoagulant 526369930 Z79.01 Warfarin m onitoring status 531922733 Z51.81 Candidiasis of skin 4988 3006 B37.2 Body mass index 25-29 - overweight 202227630 Z68.29 [id number] Giovanni Glass MD [address] [place] [address] 10/19/2020 08:26:58 10/19/2020 09:46:50 Deep venous thrombosis 386767530 I82.409 History of pulmonary embolus 364650891 Z86.711 Long-term current use of anticoagulant 979164497 Z79.01 Warfarin m onitoring status 476711626 Z51.81 Body mass index 25-29 - overweight 590331685 Z68.29 Mixed hyperlipidemia 267 196854 E78.2 [id number] Marcelina Longo APRN [address] [place] [address] 11/02/2020 12:57:56 11/02/2020 13:28:48 Hyperglycemia due to type 2 diabetes mellitus 4459432378 05894 E11.65 Chronic ki dney disease stage 3 975617140 N18.30 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 6350028006 05 E11.22 Mixed hyperlipidemia 267 730738 E78.2 History of deep vein thrombosis 305479057 Z86.718 History of pulmonary embolus 210064373 Z86.711 Benign ess ential hypertension 8715749 I10 Vitamin D deficiency 347 94385 E55.9 Obesity 697373450 E66.9 Peripheral vascular disease 955613283 I73.9 Body mass index 25-29 - overweight 491176708 Z68.28 Peripheral neuropathy due to type 2 diabetes mellitus 6145146298 107 E11.42 [id number] Giovanni Glass MD [address] [place] [address] 11/22/2020 09:35:52 11/22/2020 10:28:33 Deep venous thrombosis 539753947 I82.409 Obesity 187420938 E66.9 Long-term current use of anticoagulant 353391123 Z79.01 Warfarin m onitoring status 396962067 Z51.81 Body mass index 25-29 - overweight 402062893 Z68.28 [id number] Giovanni Glass MD [address] [place] [address] 12/20/2020 10:18:42 12/20/2020 11:03:46 Deep venous thrombosis 748551708 I82.409 Obesity 117943278 E66.9 Long-term current use of anticoagulant 489577181 Z79.01 Warfarin m onitoring status 559895927 Z51.81 Body mass index 25-29 - overweight 111646074 Z68.28 [id number] Giovanni Glass MD [address] [place] [address] 01/18/2021 10:07:38 01/18/2021 10:39:12 Deep venous thrombosis 852579513 I82.409 Obesity 231290368 E66.9 Long-term current use of anticoagulant 883397104 Z79.01 Warfarin m onitoring status 655116892 Z51.81 Body mass index 25-29 - overweight 972564851 Z68.29 [id number] Giovanni Glass MD [address] [place] [address] 02/15/2021 08:27:04 02/15/2021 09:28:29 Deep venous thrombosis 408925044 I82.409 Obesity 313109600 E66.9 Warfarin m onitoring status 142620818 Z51.81 Long-term current use of anticoagulant 691840860 Z79.01 Body mass index 25-29 - overweight 204251741 Z68.28 [id number] Marcelina Longo APRN [address] [place] [address] 02/21/2021 08:15:03 02/21/2021 08:56:54 Peripheral neuropathy due to type 2 diabetes mellitus 1919613814 107 E11.42 Type 2 jaoquin betes mellitus without complication 212267383 E11.9 Hyperglyce nhan due to type 2 diabetes mellitus 4622601270 71018 E11.65 Chronic ki dney disease stage 3 271223518 N18.30 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 1195392274 05 E11.22 Mixed hyperlipidemia 267 136337 E78.2 History of deep vein thrombosis 831921933 Z86.718 History of pulmonary embolus 538060113 Z86.711 Benign ess ential hypertension 7031889 I10 Vitamin D deficiency 347 72841 E55.9 Obesity 530149855 E66.9 Peripheral vascular disease 009623918 I73.9 Body mass index 25-29 - overweight 054721556 Z68.28 Screening for malignant neoplasm of colon 784160174 Z12.11 [id number] Giovanni Glsas MD [address] [place] [address] 03/21/2021 13:20:41 03/21/2021 14:15:05 Deep venous thrombosis 869761379 I82.409 Obesity 638713572 E66.9 Administra tion of influenza vaccine 66748287 Z23 Long-term current use of anticoagulant 510863700 Z79.01 Warfarin m onitoring status 836525164 Z51.81 Body mass index 25-29 - overweight 503115687 Z68.29 [id number] Giovanni Glass MD [address] [place] [address] 04/18/2021 12:35:38 04/18/2021 13:14:27 Deep venous thrombosis 095052527 I82.409 Obesity 871314203 E66.9 Long-term current use of anticoagulant 235437679 Z79.01 Warfarin m onitoring status 860127762 Z51.81 Body mass index 25-29 - overweight 892204880 Z68.29 [id number] Giovanni Glass MD [address] [place] [address] 05/02/2021 15:32:56 05/02/2021 16:17:56 Viral screening 241639035 Z11.52 Acute bronchitis 6426368 2 J20.9 [id number] Giovanni Glass MD [address] [place] [address] 05/18/2021 14:57:14 05/18/2021 15:36:22 Deep venous thrombosis 093330475 I82.409 Long-term current use of anticoagulant 300082322 Z79.01 Warfarin m onitoring status 326073650 Z51.81 Body mass index 25-29 - overweight 550029780 Z68.28 [id number] Marcelina Longo APRN [address] [place] [address] 05/23/2021 10:17:46 05/23/2021 11:45:50 Peripheral neuropathy due to type 2 diabetes mellitus 6567026787 107 E11.42 Hyperglyce nhan due to type 2 diabetes mellitus 6384581515 11224 E11.65 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 6508313866 05 E11.22 Mixed hyperlipidemia 267 181385 E78.2 History of deep vein thrombosis 412819859 Z86.718 History of pulmonary embolus 722095450 Z86.711 Benign ess ential hypertension 9356226 I10 Vitamin D deficiency 347 34382 E55.9 Obesity 682353081 E66.9 Peripheral vascular disease 657889218 I73.9 Body mass index 25-29 - overweight 732314838 Z68.27 [id number] Giovanni Glass MD [address] [place] [address] 06/21/2021 10:17:28 06/21/2021 11:12:02 Deep venous thrombosis 293157404 I82.409 Obesity 703255392 E66.9 Administra tion of SARS-CoV-2 antigen vaccine 723313486 Z23 Long-term current use of anticoagulant 148245780 Z79.01 Warfarin m onitoring status 219426572 Z51.81 Body mass index 25-29 - overweight 004698374 Z68.28 [id number] Marcelina Longo APRN [address] [place] [address] 08/29/2021 09:04:01 08/29/2021 09:49:16 Hyperglycemia due to type 2 diabetes mellitus 8012903701 72725 E11.65 Peripheral neuropathy due to type 2 diabetes mellitus 7458928503 107 E11.42 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 7103925692 05 E11.22 Mixed hyperlipidemia 267 818331 E78.2 History of deep vein thrombosis 677659644 Z86.718 History of pulmonary embolus 908012594 Z86.711 Benign ess ential hypertension 5756395 I10 Vitamin D deficiency 347 27938 E55.9 Obesity 981613961 E66.9 Peripheral vascular disease 499242049 I73.9 Body mass index 25-29 - overweight 251182988 Z68.27 Nocturia 374071867 R35.1 Fatigue 99220461 R53.83 [id number] Giovanni Glass MD [address] [place] [address] 08/10/2021 14:07:10 08/10/2021 14:40:09 Deep venous thrombosis 867004873 I82.409 Long-term current use of anticoagulant 758787941 Z79.01 Warfarin m onitoring status 228658077 Z51.81 Body mass index 25-29 - overweight 511755905 Z68.28 [id number] Giovanni Glass MD [address] [place] [address] 09/07/2021 12:19:11 09/07/2021 13:14:16 Deep venous thrombosis 253486151 I82.409 Obesity 684485288 E66.9 Long-term current use of anticoagulant 309824049 Z79.01 Warfarin m onitoring status 067545989 Z51.81 Acute sinusitis 03612537 J01.90 Body mass index 25-29 - overweight 728675272 Z68.28 [id number] Giovanni Glass MD [address] [place] [address] 10/10/2021 08:51:39 10/10/2021 09:44:59 Deep venous thrombosis 786624550 I82.409 Obesity 006469580 E66.9 Long-term current use of anticoagulant 466955488 Z79.01 Warfarin m onitoring status 566182843 Z51.81 Seborrheic dermatitis 50 162259 L21.9 Body mass index 25-29 - overweight 710052852 Z68.28 [id number] Giovanni Glass MD [address] [place] [address] 11/08/2021 10:02:43 11/08/2021 10:43:21 Deep venous thrombosis 144945135 I82.409 Long-term current use of anticoagulant 247211156 Z79.01 Warfarin m onitoring status 058247471 Z51.81 Body mass index 25-29 - overweight 269828355 Z68.28 [id number] Giovanni Glass MD [address] [place] [address] 11/28/2021 09:29:34 11/28/2021 11:26:06 Obesity 705866731 E66.9 Impacted c erumen in left ear 2870811340 631859 H61.22 resolved [id number] Marcelina Longo APRN [address] [place] [address] 12/03/2021 14:04:14 12/03/2021 14:28:38 Hyperglycemia due to type 2 diabetes mellitus 1122809835 19518 E11.65 Peripheral neuropathy due to type 2 diabetes mellitus 5392329273 107 E11.42 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 0976610880 05 E11.22 Mixed hyperlipidemia 267 934833 E78.2 History of deep vein thrombosis 380647371 Z86.718 History of pulmonary embolus 685227697 Z86.711 Benign ess ential hypertension 9424274 I10 Vitamin D deficiency 347 38213 E55.9 Obesity 335645928 E66.9 Peripheral vascular disease 072729991 I73.9 Body mass index 25-29 - overweight 408244624 Z68.27 [id number] Marcelina Longo [address] [place] [address] 03/06/2022 12:28:18 03/06/2022 13:27:06 Hyperglycemia due to type 2 diabetes mellitus 6943255141 87271 E11.65 Peripheral neuropathy due to type 2 diabetes mellitus 4989582098 107 E11.42 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 0915257082 E11.22 Mixed hyperlipidemia 267 400717 E78.2 History of deep vein thrombosis 475203776 Z86.718 History of pulmonary embolus 704359308 Z86.711 Benign ess ential hypertension 9745537 I10 Vitamin D deficiency 347 37324 E55.9 Obesity 290895348 E66.9 Peripheral vascular disease 702674824 I73.9 Body mass index 25-29 - overweight 156075938 Z68.27 Influenza vaccine needed 0618222637 106 Z23 [id number] Marcelina Longo [address] [place] [address] 06/13/2022 10:11:04 06/13/2022 11:27:51 Hyperglycemia due to type 2 diabetes mellitus 3811787900 14307 E11.65 Peripheral neuropathy due to type 2 diabetes mellitus 4251538888 107 E11.42 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 3595508432 E11.22 Mixed hyperlipidemia 267 249426 E78.2 History of deep vein thrombosis 612996189 Z86.718 History of pulmonary embolus 949370384 Z86.711 Benign ess ential hypertension 7771094 I10 Vitamin D deficiency 347 87679 E55.9 Obesity 171635352 E66.9 Peripheral vascular disease 695105790 I73.9 Body mass index 25-29 - overweight 501426643 Z68.27 [id number] Giovanni Glass MD [address] [place] [address] 09/04/2022 13:05:58 09/04/2022 14:21:20 Benign essential hypertension 1573513 I10 Chronic ki dney disease stage 3 240835648 N18.30 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 0740829826 05 E11.22 Deep venou s thrombosis 762901688 I82.409 Essential hypertension 63117510 I10 History of deep vein thrombosis 162122765 Z86.718 Hyperglyce nhan due to type 2 diabetes mellitus 9793648752 77008 E11.65 Hyperlipidemia 49675412 E78.5 Mixed hyperlipidemia 267 801841 E78.2 Obesity 723317376 E66.9 Peripheral neuropathy due to type 2 diabetes mellitus 6978548253 107 E11.42 Peripheral vascular disease 621034355 I73.9 Testicular hypofunction 937481024 E29.1 Vitamin D deficiency 347 25531 E55.9 Contusion of left upper arm 7966629576 8162148 S40.022A Contusion of left lower leg 1206603011 9026802 S80.12XA Body mass index 25-29 - overweight 865439265 Z68.27 [id number] Marcelina Longo APRN [address] [place] [address] 09/25/2022 09:16:08 09/25/2022 09:56:58 Hyperglycemia due to type 2 diabetes mellitus 5950551610 90203 E11.65 Benign ess ential hypertension 9347505 I10 Obesity 987812681 E66.9 Peripheral vascular disease 109121163 I73.9 Body mass index 25-29 - overweight 290125328 Z68.27 Peripheral neuropathy due to type 2 diabetes mellitus 6868358905 107 E11.42 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 0633602396 05 E11.22 Mixed hyperlipidemia 267 817852 E78.2 History of deep vein thrombosis 565562385 Z86.718 History of pulmonary embolus 971840633 Z86.711 Vitamin D deficiency 347 23446 E55.9 [id number] Giovanni Glass MD [address] [place] [address] 09/26/2022 09:22:53 09/26/2022 09:50:53 Benign essential hypertension 1800319 I10 Obesity 323716332 E66.9 Body mass index 25-29 - overweight 049598842 Z68.27 [id number] Marcelina Longo APRN [address] [place] [address] 01/02/2023 09:44:35 01/02/2023 10:11:08 Hyperglycemia due to type 2 diabetes mellitus 1276836551 92708 E11.65 Benign ess ential hypertension 8321450 I10 Obesity 172862087 E66.9 Peripheral vascular disease 991748094 I73.9 Body mass index 25-29 - overweight 673986041 Z68.27 Peripheral neuropathy due to type 2 diabetes mellitus 3780694090 107 E11.42 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 1381947041 05 E11.22 Mixed hyperlipidemia 267 813656 E78.2 History of deep vein thrombosis 484887921 Z86.718 History of pulmonary embolus 347002585 Z86.711 Vitamin D deficiency 347 56623 E55.9 [id number] Giovanni Glass MD [address] [place] [address] 03/13/2023 09:36:10 03/13/2023 09:47:21 Influenza vaccine needed 0369630071 106 Z23 [id number] Marcelina Longo DEBRANDER [address] [place] [address] 04/08/2023 10:00:56 04/08/2023 11:35:24 Hyperglycemia due to type 2 diabetes mellitus 6607565016 68008 E11.65 Benign ess ential hypertension 3191247 I10 Obesity 932693653 E66.9 Peripheral vascular disease 003833223 I73.9 Body mass index 25-29 - overweight 070746555 Z68.27 Peripheral neuropathy due to type 2 diabetes mellitus 8510881230 107 E11.42 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 3493774170 05 E11.22 Mixed hyperlipidemia 267 164567 E78.2 History of deep vein thrombosis 280667435 Z86.718 History of pulmonary embolus 398494254 Z86.711 Vitamin D deficiency 347 28380 E55.9 [id number] Marcelina Longo [address] [place] [address] 07/24/2023 11:45:38 07/24/2023 12:29:24 Hyperglycemia due to type 2 diabetes mellitus 3861217477 69907 E11.65 Benign ess ential hypertension 3223465 I10 Obesity 446272372 E66.9 Peripheral vascular disease 267793282 I73.9 Body mass index 25-29 - overweight 594541870 Z68.27 Peripheral neuropathy due to type 2 diabetes mellitus 4410042762 107 E11.42 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 6610794786 05 E11.22 Mixed hyperlipidemia 267 059953 E78.2 History of deep vein thrombosis 702283159 Z86.718 History of pulmonary embolus 382205426 Z86.711 Vitamin D deficiency 347 57216 E55.9 [id number] Marcelina Longo [address] [place] [address] 10/22/2023 12:16:19 10/22/2023 13:59:48 Hyperglycemia due to type 2 diabetes mellitus 6815276499 68197 E11.65 Benign ess ential hypertension 6966437 I10 Obesity 828439850 E66.9 Peripheral vascular disease 289618716 I73.9 Body mass index 25-29 - overweight 316648479 Z68.25 Peripheral neuropathy due to type 2 diabetes mellitus 1999980277 107 E11.42 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 9281767971 05 E11.22 Mixed hyperlipidemia 267 551135 E78.2 History of deep vein thrombosis 183274175 Z86.718 History of pulmonary embolus 418034726 Z86.711 Vitamin D deficiency 347 39558 E55.9 Nocturia 372321550 R35.1 Type 2 joaquin betes mellitus without complication 686027891 E11.9 Iron defic iency anemia 75552080 D50.9 [id number] Giovanni Glass MD [address] [place] [address] 11/13/2023 12:25:04 11/13/2023 13:16:26 Benign essential hypertension 9246468 I10 Deep venou s thrombosis 342622239 I82.409 Peripheral neuropathy due to type 2 diabetes mellitus 4302123851 107 E11.42 History of deep vein thrombosis 668698088 Z86.718 History of pulmonary embolus 149706067 Z86.711 Mixed hyperlipidemia 267 320300 E78.2 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 0045758313 05 E11.22 Essential hypertension 43673136 I10 Hyperlipidemia 93251391 E78.5 Obesity 702094565 E66.9 Peripheral vascular disease 496426156 I73.9 Hyperglyce nhan due to type 2 diabetes mellitus 7528091308 69275 E11.65 Vitamin D deficiency 347 50296 E55.9 Angina pectoris 37757355 0 I20.9 Body mass index 20-24 - normal 318009311 Z68.23 [id number] Marcelina Longo APRN [address] [place] [address] 01/21/2024 10:11:47 01/21/2024 11:03:50 Hyperglycemia due to type 2 diabetes mellitus 0981436919 26214 E11.65 Benign ess ential hypertension 2347163 I10 Obesity 738742490 E66.9 Peripheral vascular disease 135868902 I73.9 Body mass index 25-29 - overweight 397265461 Z68.25 Peripheral neuropathy due to type 2 diabetes mellitus 7136703115 107 E11.42 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 8457942791 05 E11.22 Mixed hyperlipidemia 267 191030 E78.2 History of deep vein thrombosis 871892517 Z86.718 History of pulmonary embolus 911314822 Z86.711 Vitamin D deficiency 347 41063 E55.9 Iron defic iency anemia 94710701 D50.9 Prostate s pecific antigen above reference range 538425471 R97.20 [id number] Giovanni Glass MD [address] [place] [address] 02/13/2024 10:43:49 02/13/2024 11:15:41 Benign essential hypertension 8947952 I10 Essential hypertension 95562722 I10 Body mass index 25-29 - overweight 937676369 Z68.[id number] [facility] [address] [place] [address] 02/25/2024 08:54:25 02/25/2024 10:27:07 Essential hypertension 23261481 I10 History of pulmonary embolus 355807758 Z86.711 History of deep vein thrombosis 616881973 Z86.718 Chronic ki dney disease stage 4 956252442 N18.4 Prostate s pecific antigen above reference range 430356779 R97.20 Sensation as if urinary bladder still full 941699700 R39.[id number] [facility] [address] [place] [address] 03/30/2024 11:02:56 03/30/2024 12:16:32 Prostate specific antigen above reference range 254927503 R97.20 Chronic ki dney disease stage 4 274392226 N18.4 Essential hypertension 95775785 I10 History of pulmonary embolus 473371223 Z86.711 History of deep vein thrombosis 696761711 Z86.718 Sensation as if urinary bladder still full 525661798 R39.14 Benign pro static hyperplasia with outflow obstruction 388633796 N40.1 Retention of urine 64461 4002 R33.9 Multiple renal cysts 253 733395 N28.1 [id number] Shahnaz Herman APRN [address] [place] [address] 03/09/2024 11:23:07 03/09/2024 11:52:42 Influenza vaccine needed 5110771169 106 Z23 [id number] Giovanni Glass MD [address] [place] [address] 05/19/2024 12:20:48 05/19/2024 13:44:09 Adult health examination 162932217 Z00.00 Depression screening 171 606594 Z13.31 A depression screening was completed via a standardiz ed screening tool. 5 minutes were spent discussing depression screening results and risk factors. Examinatio n of blood pressure 671298390 Z01.30 Diet education 44040895 Z71.3 Counseling 610830999 Z71 .82 Exercise counseling . Patient encouraged to exercise 30 minutes 5 days a week. At [facility] ed risk for falls 532324341 Z91.81 STEADI FAST screening score of ___11__. Advance care planning 71 7238991 Z71.89 Testicular hypofunction 584657714 E29.1 Benign ess ential hypertension 7041291 I10 Deep venou s thrombosis 785427859 I82.409 Peripheral neuropathy due to type 2 diabetes mellitus 2397236408 107 E11.42 History of deep vein thrombosis 215013268 Z86.718 History of pulmonary embolus 351003362 Z86.711 Mixed hyperlipidemia 267 004960 E78.2 Vitamin D deficiency 347 49468 E55.9 Hyperglyce nhan due to type 2 diabetes mellitus 2120265837 38156 E11.65 Peripheral vascular disease 796813378 I73.9 Chronic ki dney disease stage 3 320681691 N18.30 Hyperlipidemia 75490411 E78.5 Essential hypertension 96923917 I10 Obesity 939851796 E66.9 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 4244254515 05 E11.22 Administra tion of diphtheria, pertussis, and tetanus vaccine 975330950 Z23 Administra tion of pneumococcal vaccine 06281667 Z23 Body mass index 25-29 - overweight 587493322 Z68.25 [id number] Giovanni Glass MD [address] [place] [address] 05/26/2024 10:00:13 05/26/2024 10:33:22 Benign essential hypertension 5120615 I10 Orthostati c hypotension 12350407 I95.1 Body mass index 25-29 - overweight 258691115 Z68.25 [id number] Marcelina Longo APRN [address] [place] [address] 06/21/2024 15:49:46 06/21/2024 16:39:13 Hyperglycemia due to type 2 diabetes mellitus 8780432663 03405 E11.65 Benign ess ential hypertension 6680822 I10 Obesity 458318129 E66.9 Peripheral vascular disease 958322868 I73.9 Body mass index 25-29 - overweight 009660680 Z68.25 Peripheral neuropathy due to type 2 diabetes mellitus 5002737616 107 E11.42 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 7973532399 05 E11.22 Mixed hyperlipidemia 267 658607 E78.2 History of deep vein thrombosis 440629478 Z86.718 History of pulmonary embolus 780851954 Z86.711 Vitamin D deficiency 347 61677 E55.9 Iron defic iency anemia 32238337 D50.9 Prostate s pecific antigen above reference range 019988896 R97.20 [id number] Giovanni Glass MD [address] [place] [address] 08/18/2024 13:18:55 08/18/2024 14:01:40 Testicular hypofunction 282954834 E29.1 Benign ess ential hypertension 5390869 I10 Deep venou s thrombosis 360960877 I82.409 Peripheral neuropathy due to type 2 diabetes mellitus 4036730071 107 E11.42 Mixed hyperlipidemia 267 846796 E78.2 Vitamin D deficiency 347 06625 E55.9 Hyperglyce nhan due to type 2 diabetes mellitus 4647462590 13631 E11.65 Impotence 451791716 F52. 21 Peripheral vascular disease 822916001 I73.9 Chronic ki dney disease stage 3 040610319 N18.30 Obesity 887208819 E66.9 Hyperlipidemia 39840086 E78.5 Essential hypertension 38189968 I10 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 9494425217 05 E11.22 History of deep vein thrombosis 488698728 Z86.718 History of pulmonary embolus 701365670 Z86.711 Body mass index 25-29 - overweight 761557834 Z68.26 [id number] Marcelina Longo APRN [address] [place] [address] 09/21/2024 14:33:55 09/21/2024 15:06:41 Hyperglycemia due to type 2 diabetes mellitus 9195373054 78315 E11.65 Benign ess ential hypertension 9375619 I10 Obesity 573109781 E66.9 Peripheral vascular disease 074888023 I73.9 Body mass index 25-29 - overweight 721619115 Z68.25 Peripheral neuropathy due to type 2 diabetes mellitus 6653203839 107 E11.42 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 3950489671 05 E11.22 Mixed hyperlipidemia 267 767305 E78.2 History of deep vein thrombosis 553545222 Z86.718 History of pulmonary embolus 438705726 Z86.711 Vitamin D deficiency 347 25407 E55.9 Iron defic iency anemia 27462199 D50.9 Prostate s pecific antigen above reference range 113177125 R97.20 Upper resp iratory tract finding 013249498 R09.89 [id number] Kat Carnes [address] [place] [address] 10/20/2024 15:02:41 10/20/2024 16:34:21 Pruritic dermatitis 5854995275 L30.8 [id number] [id number] Marcelina Longo [address] [place] [address] 11/09/2024 14:16:39 11/09/2024 15:37:06 Hyperglycemia due to type 2 diabetes mellitus 4119518181 39696 E11.65 Benign ess ential hypertension 8431060 I10 Obesity 379512380 E66.9 Peripheral vascular disease 618396377 I73.9 Body mass index 25-29 - overweight 352096258 Z68.25 Peripheral neuropathy due to type 2 diabetes mellitus 1903006230 107 E11.42 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 9762528620 05 E11.22 Mixed hyperlipidemia 267 033979 E78.2 History of deep vein thrombosis 006882843 Z86.718 History of pulmonary embolus 022190818 Z86.711 Vitamin D deficiency 347 74948 E55.9 Iron defic iency anemia 69626072 D50.9 Prostate s pecific antigen above reference range 794017284 R97.20 Dizziness 687084644 R42 74498 [id number] Giovanni Glass MD [address] [place] [address] 11/24/2024 12:29:33 11/24/2024 13:35:06 Testicular hypofunction 806139946 E29.1 Benign ess ential hypertension 0667747 I10 Deep venou s thrombosis 350666429 I82.409 Peripheral neuropathy due to type 2 diabetes mellitus 2975246774 107 E11.42 History of pulmonary embolus 467972968 Z86.711 Mixed hyperlipidemia 267 738997 E78.2 Obesity 507210931 E66.9 Peripheral vascular disease 454363740 I73.9 Impotence 977075404 F52. 21 Hyperglyce nhan due to type 2 diabetes mellitus 9476137756 86702 E11.65 Vitamin D deficiency 347 23678 E55.9 Essential hypertension 22651468 I10 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 5980885042 05 E11.22 Hyperlipidemia 85885202 E78.5 Dyspnea on exertion 6084 5006 R06.09 552476 Overweight in adulthood with body mass index of 25 or more but less than 30 704074315 Z68.25 [id number] Marcelina Longo APRN [address] [place] [address] 12/29/2024 09:45:18 12/29/2024 10:17:41 Hyperglycemia due to type 2 diabetes mellitus 1951005690 39550 E11.65 Benign ess ential hypertension 4981295 I10 Obesity 396403102 E66.9 Peripheral vascular disease 403907279 I73.9 Body mass index 25-29 - overweight 603138113 Z68.25 Peripheral neuropathy due to type 2 diabetes mellitus 3763273721 107 E11.42 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 4754780122 05 E11.22 Mixed hyperlipidemia 267 113830 E78.2 History of deep vein thrombosis 442906591 Z86.718 History of pulmonary embolus 373932190 Z86.711 Vitamin D deficiency 347 50744 E55.9 Iron defic iency anemia 82005037 D50.9 Prostate s pecific antigen above reference range 913128822 R97.20 Overweight in adulthood with body mass index of 25 or more but less than 30 426597554 Z68.26 807677 [id number] Giovanni Glass MD [address] [place] [address] 01/27/2025 10:38:04 01/27/2025 11:31:59 Obesity 385541520 E66.9 Adverse re action to drug 09109447 T50.905A 36893090 Overweight in adulthood with body mass index of 25 or more but less than 30 993884652 Z68.26 [id number] [id number] Giovanni Glass MD [address] [place] [address] 03/24/2025 12:50:33 03/24/2025 13:50:15 Obesity 613425775 E66.9 Influenza vaccine needed 5089774654 106 Z23 Benign ess ential hypertension 1297136 I10 Peripheral vascular disease 448703225 I73.9 Essential hypertension 31585744 I10 Mixed hyperlipidemia 267 146266 E78.2 Hyperlipidemia 62378375 E78.5 Long-term current use of anticoagulant 664449976 Z79.01 Deep venou s thrombosis 980555837 I82.409 History of deep vein thrombosis 795800774 Z86.718 History of pulmonary embolus 429480216 Z86.711 Hyperglyce nhan due to type 2 diabetes mellitus 2554095654 97464 E11.65 Testicular hypofunction 180906382 E29.1 Vitamin D deficiency 347 25108 E55.9 Chronic ki dney disease stage 3 285099496 N18.30 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 2535851525 05 E11.22 Impotence 585335057 F52. 21 Peripheral neuropathy due to type 2 diabetes mellitus 3221797872 107 E11.42 Chronic sy stolic heart failure 441235339 I50.22 698887 Pruritic d isorder of skin 7167968064 L29.9 64205 Weakness o f bilateral lower limb 1669954876 32940 R29.898 029171 Overweight in adulthood with body mass index of 25 or more but less than 30 125748192 Z68.26 [id number] Marcelina Longo APRN [address] [place] [address] 04/06/2025 09:36:33 04/06/2025 10:11:00 Hyperglycemia due to type 2 diabetes mellitus 0336484049 39495 E11.65 Benign ess ential hypertension 2744483 I10 Obesity 805371001 E66.9 Peripheral vascular disease 824285205 I73.9 Body mass index 25-29 - overweight 150272502 Z68.25 Peripheral neuropathy due to type 2 diabetes mellitus 0504290947 107 E11.42 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 8539632879 05 E11.22 Mixed hyperlipidemia 267 779110 E78.2 History of deep vein thrombosis 821078614 Z86.718 History of pulmonary embolus 955453804 Z86.711 Vitamin D deficiency 347 95834 E55.9 Iron defic iency anemia 15799161 D50.9 Prostate s pecific antigen above reference range 001471448 R97.20 Overweight in adulthood with body mass index of 25 or more but less than 30 335643710 Z68.26 157461 Nocturia 433018140 R35.1 08668 History of heart failure 572676048 Z86.79 465029 Health Concerns Section Related Observation LastModified by Organization Detai ls LastModified Time None Recorded Concern Status LastModified by Organization Details LastModified Time None Recorded Advance Directives Directive N: declines info Payers Insurance Date Sequence Insurance Name Policy Number Policy Mcintyre Covered Member ID Mcintyre Member ID Guarantor Name 06/12/2016 2 UNSPECIFIED REMIT PAYOR Owen Salazar 04/03/2025 [employer] (MEDICARE REPLACEMENT/AD VANTAGE - PPO) Owen Conwayon [id number] Owen Salazar 01/27/2025 1 [employer] (PPO) Owen Conwayon [id number] Owen Conwayon 01/27/2025 3 [employer] (MEDICARE SUPPLEMENT) [id number] Owen Conwayon [id number] Owen Conwayon 11/21/2016 2 UNSPECIFIED REMIT PAYOR Owen Conwayon 01/27/2025 2 [employer] (MEDICARE SUPPLEMENT) Owen Conwayon [id number] Owen Conwayon 04/28/2025 1 [employer] (MEDICARE REPLACEMENT/AD VANTAGE - PPO) Owen Conwayon [id number] Owen Salazar 01/27/2025 1 [place] Saul Salazar [id number] Owen Salazar 01/27/2025 2 [place] [id number] Owen Salazar [id number] Owen Salazar 01/27/2025 1 [place] Saul Salazar [id number] Owen Salazar 01/27/2025 [facility] [place] [facility] (MEDICARE) Owen Salazar [id number] Owen Salazar 03/02/2018 2 UNSPECIFIED REMIT PAYOR Owen Salazar Notes Date Note Type Note Provider Name and Address Organization Details Recorded Time 11/24/2024 text/html C/O dyspnea with exertion. No chest pain, pressure, heaviness. Had abnormal CXR years ago and wants repeat. Dr. Pickard wanted to send to [facility] for ht cath but he declined. Giovanni Glass MD [address], [place], [address], [facility] 11/24/2024 13:29:21 12/29/2024 text/html Saul presents for 3 month follow up on his type 2 diabetes. He is currently on Ozempic 2 mg injection weekly, Glipizide 10 mg BID, and Lantus 30 units QAM. His last hgb a1c was 8.2%. Today it is 6.5%. He denies any problems with hypoglycemia. States his sugars average less than 150. 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 Last diabetic eye exam from 12/08/2023 was negative for retinopathy. His PCP is Dr. Glass. He sees senior bioinformatics scientist, Dr. Moser, every 3 months. His seafood preparer is Dr. Juárez. He refuses colonoscopy or cologuard. Last PSA: 02/25/2024 Chronic issues reviewed and stable. Marcelina Longo, DEBRANDER [address], [place], [address], [place] [facility] 12/29/2024 10:17:31 01/27/2025 text/html C/O 3 week history rash all over and itching. Was thought by seafood preparer to be from torsemide which he just started. Is off that but rash persists. Also getting weaker with poor balance. Can safely use cane or walker to accomplish MRADLs and needs walker. Giovanni Glass MD [address], [place], [address], [facility] 03/18/2025 15:38:51 03/24/2025 text/html Emergency Depart ment Follow-Up RecordReported by Patient Here for hoap F/U. In with SVT, rate 200, CHF, acute on chronic kidney injury. Rate was slowed and feels better. Still weak in legs and they recc PT. Lasix was decreased to 10 mg daily. Needs med for itch. Giovanni Glass MD [address], [place], [address], [facility] 03/24/2025 13:58:35 04/06/2025 text/html Saul presents for 3 month follow up on his type 2 diabetes. He is currently on Ozempic 2 mg injection weekly, Glipizide 10 mg BID, and Lantus 30 units QAM. His last hgb a1c was 6.5%. Today it is 8.5%. He has been in the hospital for pneumonia and heart failure. He denies any problems with hypoglycemia. 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 Last diabetic eye exam from 12/08/2023 was negative for retinopathy. He is scheduled to see Dr. Brown 05/09/2025. His PCP is Dr. Glass. He sees senior bioinformatics scientist, Dr. Moser, every 3 months. His seafood preparer is Dr. Juárez. He refuses colonoscopy or cologuard. Last PSA: 02/25/2024 - he refuses to have blood drawn today because he was stuck so many times during his recent hospitalization. Chronic issues reviewed and stable. Marcelina Longo, DEBRANDER [address], [place], [address], [facility] 04/06/2025 10:12:12
--- OUTSIDE RECORDS SUMMARY | 2025-04-28 12:50 | XMS_ITS | Continuity of Care Document ---
Author Organization [facility] Address [address] [place] [address] [place] [address] Assessment No assessment recorded. Plan of Treatment Reminders Order Date Submit Date Provider Last Modified By Organization Details Last Modified Time Details Appointments Medicare AWE 40mins 2024 01:50P M Giovanni Glass MD Not available Not available Not available ESTABLISH ED PT 30 2025 11:30A M Marcelina Longo APRN Not available Not available Not available Lab HbA1c (hemoglob in A1c), blood 2024 025 [facility], [address] [place] [address] , [place], [address], 04/06/2025 10:11:07 glucose, fingersti ck, blood 2024 025 [facility], [address] [place] [address] , [place], [address], 04/06/2025 10:11:07 Referral None recorded. Procedures None recorded. Surgeries None recorded. Imaging None recorded. Medication Orders None recorded. Patient TargetsNo targets recorded. Patient Instructions Encounter Date Encounter Id Patient Instructions Last Modified By Organization Details Last Modified Time 04/06/2025 [id number] Peripheral Arterial Disease (PAD): Care Instructions [email or web address] Not available 04/06/2025 10:11:07 prostate biopsy: about this test rjessee Not available 04/06/2025 10:11:07 When You Want to Lose Weight: Care Instructions rjessee Not available 04/06/2025 10:11:07 learning about healthy weight rjessee Not available 04/06/2025 10:11:07 weight managemen t education rjee Not available 04/06/2025 10:11:07 high blood pressure: [...] months. Will check PSA at that visit. nichole Not available 04/06/2025 10:08:48 Reason for Referral None Reported. Results Created Date Observation Date Name Description Value Unit Range Abnormal Flag Note LastModifiedBy Organization Detail LastModifiedTime 03/24/2003/25/2025 BMP7+ EGFR glucose 193 mg/dL 70-99 above high normal Not Available [facility] ([facility]) [address] [place], [address], 03/25/2025 11:14:10 03/24/2003/25/2025 BMP7+ EGFR BUN 27 mg/dL 8-27 normal Not Available [facility] ([facility]) [address] [place], [address], 03/25/2025 11:14:10 03/24/20 25 03/25/2025 BMP7+ EGFR creatinine 2.75 mg/dL 0.76-1 .27 above high normal Not Available [facility] ([facility]) [address] [place], [address], 03/25/2025 11:14:10 03/24/20 25 03/25/2025 BMP7+ EGFR eGFR 22 mL/mi n/1.7 3 >59 below low normal Not Available [facility] ([facility]) [address] [facility] [place], [address], 03/25/2025 11:14:10 03/24/2003/25/2025 BMP7+ EGFR sodium 142 mmol/ L 134-14 4 normal Not Available [facility] ([facility]) [address] [place], [address], 03/25/2025 11:14:10 03/24/2003/25/2025 BMP7+ EGFR potassium 4.8 mmol/ L 3.5-5. 2 normal Not Available [facility] ([facility]) [address] [place], [address], 03/25/2025 11:14:10 03/24/2003/25/2025 BMP7+ EGFR chloride 111 mmol/ L 96-106 above high normal Not Available [facility] ([facility]) [address] [place], [address], 03/25/2025 11:14:10 03/24/2003/25/2025 BMP7+ EGFR carbon dioxide, total 17 mmol/ L 20-29 below low normal Not Available [facility] ([facility]) [address] [place], [address], 03/25/2025 11:14:10 03/24/2003/25/2025 CBC WITH DIFFE RENTI AL/PL ATELE T WBC 4.8 x10e3 /uL 3.4-10 .8 normal Not Available [facility] ([facility]) [address] [place], [address], 03/25/2025 11:14:11 03/24/2003/25/2025 CBC WITH DIFFE RENTI AL/PL ATELE T RBC 3.30 x10e6 /uL 4.14-5 .80 below low normal Not Available [facility] ([facility]) [address] [place], [address], 03/25/2025 11:14:11 03/24/20 25 03/25/2025 CBC WITH DIFFE RENTI AL/PL ATELE T hemoglobin 9.8 g/dL 13.0-1 7.7 below low normal Not Available [facility] ([facility]) [address] [place], [address], 03/25/2025 11:14:11 03/24/2003/25/2025 CBC WITH DIFFE RENTI AL/PL ATELE T hematocrit 31.8 % 37.5-5 1.0 below low normal Not Available [facility] ([facility]) [address] [place], [address], 03/25/2025 11:14:11 03/24/2003/25/2025 CBC WITH DIFFE RENTI AL/PL ATELE T MCV 96 fL 79-97 normal Not Available [facility] ([facility]) [address] [place], [address], 03/25/2025 11:14:11 03/24/20 25 03/25/2025 CBC WITH DIFFE RENTI AL/PL ATELE T MCH 29.7 pg 26.6-3 3.0 normal Not Available [facility] ([facility]) [address] [place], [address], 03/25/2025 11:14:11 03/24/2003/25/2025 CBC WITH DIFFE RENTI AL/PL ATELE T MCHC 30.8 g/dL 31.5-3 5.7 below low normal Not Available [facility] ([facility]) [address] [place], [address], 03/25/2025 11:14:11 03/24/20 25 03/25/2025 CBC WITH DIFFE RENTI AL/PL ATELE T RDW 13.1 % 11.6-1 5.4 Not Available [facility] ([facility]) [address] [place], [address], 03/25/2025 11:14:11 03/24/2003/25/2025 CBC WITH DIFFE RENTI AL/PL ATELE T platelets 199 x10e3 /uL 150-45 0 normal Not Available [facility] ([facility]) [address] [facility], [place], [address], 03/25/2025 11:14:11 03/24/2003/25/2025 CBC WITH DIFFE RENTI AL/PL ATELE T neutrophils 54 % not estab. normal Not Available [facility] ([facility]) [address] [facility], [place], [address], 03/25/2025 11:14:11 03/24/2003/25/2025 CBC WITH DIFFE RENTI AL/PL ATELE T lymphs 31 % not estab. normal Not Available [facility] ([facility]) [address] [facility], [place], [address], 03/25/2025 11:14:11 03/24/2003/25/2025 CBC WITH DIFFE RENTI AL/PL ATELE T monocytes 12 % not estab. normal Not Available [facility] ([facility]) [address] [facility], [place], [address], 03/25/2025 11:14:11 03/24/2003/25/2025 CBC WITH DIFFE RENTI AL/PL ATELE T eos 2 % not estab. normal Not Available [facility] ([facility]) [address] [facility], [place], [address], 03/25/2025 11:14:11 03/24/2003/25/2025 CBC WITH DIFFE RENTI AL/PL ATELE T basos 1 % not estab. normal Not Available [facility] ([facility]) [address] [facility], [place], [address], 03/25/2025 11:14:11 03/24/2003/25/2025 CBC WITH DIFFE RENTI AL/PL ATELE T immature cells GRADUATE STUDENT INSTRUCTOR Not Available [facility] ([facility] [address] [place], [address], 03/25/2025 11:14:11 03/24/2003/25/2025 CBC WITH DIFFE RENTI AL/PL ATELE T neutrophils (absolute) 2.6 x10e3 /uL 1.4-7. 0 normal Not Available [facility] ([facility] [address] [place], [address], 03/25/2025 11:14:11 03/24/2003/25/2025 CBC WITH DIFFE RENTI AL/PL ATELE T lymphs (absolute) 1.5 x10e3 /uL 0.7-3. 1 normal Not Available [facility] ([facility]) [address] [place], [address], 03/25/2025 11:14:11 03/24/2003/25/2025 CBC WITH DIFFE RENTI AL/PL ATELE T monocytes(ab solute) 0.6 x10e3 /uL 0.1-0. 9 normal Not Available [facility] ([facility]) [address] [place], [address], 03/25/2025 11:14:11 03/24/2003/25/2025 CBC WITH DIFFE RENTI AL/PL ATELE T eos (absolute) 0.1 x10e3 /uL 0.0-0. 4 normal Not Available [facility] ([facility]) [address] [place], [address], 03/25/2025 11:14:11 03/24/2003/25/2025 CBC WITH DIFFE RENTI AL/PL ATELE T baso (absolute) 0.0 x10e3 /uL 0.0-0. 2 normal Not Available [facility] ([facility]) [address] [place], [address], 03/25/2025 11:14:11 03/24/20 25 03/25/2025 CBC WITH DIFFE RENTI AL/PL ATELE T immature granulocytes 0 % not estab. Not Available [facility] ([facility]) [address] [facility], [place], [address], 03/25/2025 11:14:11 03/24/2003/25/2025 CBC WITH DIFFE RENTI AL/PL ATELE T immature grans (abs) 0.0 x10e3 /uL 0.0-0. 1 Not Available [facility] ([facility]) [address] [facility], [place], [address], 03/25/2025 11:14:11 03/24/2003/25/2025 CBC WITH DIFFE RENTI AL/PL ATELE T NRBC GRADUATE STUDENT INSTRUCTOR Not Available [facility] ([facility]) [address] [facility], [place], [address], 03/25/2025 11:14:11 03/24/2003/25/2025 CBC WITH DIFFE RENTI AL/PL ATELE T hematology comments: GRADUATE STUDENT INSTRUCTOR Not Available [facility] [address] [facility], [place], [address], 03/25/2025 11:14:11 03/24/20 25 03/25/2025 RENAL PANEL (10) BUN/creatini ne ratio 10 10-24 normal Not Available [facility] [address] [facility], [place], [address], 03/25/2025 11:14:12 03/24/2003/25/2025 RENAL PANEL (10) calcium 8.0 mg/dL 8.6-10 .2 below low normal Not Available [facility] ([facility]) [address] [facility], [place], [address], 03/25/2025 11:14:12 03/24/20 25 03/25/2025 RENAL PANEL (10) phosphorus 3.5 mg/dL 2.8-4. 1 normal Not Available [facility] ([facility] [address] [place], [address], 03/25/2025 11:14:12 03/24/2003/25/2025 RENAL PANEL (10) albumin 2.7 g/dL 3.7-4. 7 below low normal Not Available [facility] ([facility]) [address] [facility], [place], [address], 03/25/2025 11:14:12 03/24/2003/25/2025 IRON AND TIBC iron bind.cap.(TI BC) 217 ug/dL 250-45 0 below low normal Not Available [facility] ([facility]) [address] [facility], [place], [address], 03/25/2025 11:14:13 03/24/2003/25/2025 IRON AND TIBC UIBC 168 ug/dL 111-34 3 normal Not Available [facility] ([facility] [address] [place], [address], 03/25/2025 11:14:13 03/24/2003/25/2025 IRON AND TIBC iron 49 ug/dL 38-169 normal Not Available [facility] ([facility] [address] [place], [address], 03/25/2025 11:14:13 03/24/2003/25/2025 IRON AND TIBC iron saturation 23 % 15-55 normal Not Available [facility] [address] [place], [address], 03/25/2025 11:14:13 03/24/2003/25/2025 VITAM IN D, 25-HY [...] Medic ine). 2009. Dieta ry refer ence darrynak es for calci um and D. Elder aragon [place]: [facility] . 2. Zuly de la paz [place], Makayla deras [place], Bisbert off-F errar i COE, et al. Evalu ation , treat ment, and preve ntion of vitam in D defic iency : an Endoc rine Socie ty clini siobhan pract ice guide line. JCEM. 2010; 96(7) :1911 -30. Not Available [facility] ([facility]) [address] [place], [address], 03/25/2025 11:14:13 03/24/20 25 03/25/2025 MIGDALIA TIN ferritin 75 NG/mL 30-400 normal Not Available [facility] ([facility] [address] [place], [address], 03/25/2025 11:14:14 03/24/20 25 03/25/2025 PTH, INTAC T PTH, intact 113 pg/mL 15-65 above high normal Not Available [facility] ([facility]) [address] [place], [address], 03/25/2025 11:14:15 04/06/20 25 04/06/2025 HbA1c (hemo globi n A1c), blood HbA1C 8.5 % Not Available [address] , [place], [address], 04/05/2025 16:20:51 04/06/20 25 04/06/2025 gluco se, finge rstic k, blood Blood Glucose: mg/dl 254 Not Available [facility] [address] [facility] , [place], [address], 04/05/2025 16:20:51 04/21/20 25 04/21/2025 imagi ng/di agnos tic resul t No observ ation record ed. [email or web address] [facility] [address], [place], [address], 04/22/2025 15:27:06 Result Notes None recorded. Problems Name Problem SNOMED Code Status Onset Date Resolution Date Notes Provider Name and Address Organization Details Recorded Time Essential hypertens ion 31893485 Active 2015 Not Available [facility] 3 11:37:22 Deep venous thrombosi s 071040787 Active 2015 Not Available [facility] 3 11:37:22 Type 2 diabetes mellitus 63674873 Completed 201505/23/2021 Marcelina Longo, COOKEE [address], [place], [address] , [place] - [facility] 1 10:42:42 Hyperlipi demia 48164666 Active 2015 Not Available [facility] 3 11:37:22 Impotence Active 2015 Not Available [facility] 3 11:37:22 Long-term current use of anticoagu lant 309880240 Active 2015 Not Available [facility] 3 11:37:22 Obesity 453107823 Active 2015 Not Available [facility] 3 11:37:22 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 Not Available [facility] 3 11:37:22 Periphera l vascular disease 727845795 Active 2015 Not Available [facility] 3 11:37:22 Pulmonary embolism 81277825 Completed 201504/08/2016 Paula Gee fatimah [place] - [facility] 6 13:01:47 Warfarin monitorin g status 055569266 Active 2016 Not Available [facility] 3 11:37:22 Vitamin D deficienc y 43311274 Active 2020 Not Available [facility] 3 11:37:22 Hyperglyc emia due to type 2 diabetes mellitus 63559843091 9109 Active 2020 Not Available [facility] 3 11:37:22 Chronic kidney disease stage 3 480252550 Active 2020 Not Available [facility] 3 11:37:22 Chronic ki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 32737515139 5 Active 2020 Not Available [facility] 3 11:37:22 Mixed hyperlipi demia 707506834 Active 2020 Not Available [facility] 3 11:37:22 History of deep vein thrombosi s 051607461 Active 2020 Not Available [facility] 3 11:37:22 History of pulmonary embolus 124628811 Active 2020 Not Available [facility] 3 11:37:22 Benign essential hypertens ion 3624885 Active 2020 Kat Carnes, COOKEE [address], [place], [address] , [place] - [facility] 5 10:37:04 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 Procedures Surgical History Date Name Laterality Status Provider Name and Address Organization Details Recorded Time 03/24/20 25 Medication Reconcilliation completed Paula Gee [facility] 03/24/2025 13:08:38 12/30/19 A1C level 6.9 and below completed Clive Sung [facility] 12/29/2024 10:00:50 09/22/19 25 A1C level 8.0 to 9.0 completed Clive Pineda [facility] 09/21/2024 14:59:34 05/19/20 24 Advance Care Planning completed Palua Gee [facility] 05/19/2024 12:54:25 05/19/20 24 Functional Status Assessed completed Paula Gee [facility] 05/19/2024 12:54:25 01/21/20 24 Positive Microalbumin completed Clive Sarmientoyles [facility] 01/21/2024 10:44:25 01/21/20 24 A1C level 6.9 and below completed Clive Pineda [facility] 01/21/2024 10:48:27 10/22/19 24 A1C level 6.9 and below completed Clive Sarmientoyles [facility] 10/22/2023 13:05:51 07/24/19 24 A1C level 8.0 to 9.0 completed Clive Pineda [facility] 07/24/2023 11:56:27 04/08/20 23 A1C level 6.9 and below completed Clive Pineda [facility] 04/08/2023 11:20:15 09/05/19 23 Medication Reconcilliation completed Paula Gee [facility] 09/04/2022 13:11:20 06/13/19 23 A1C level 7.0 to 7.9 completed Clive Pineda [facility] 06/13/2022 11:10:06 03/06/20 22 A1C level 7.0 to 7.9 completed Clive Pineda [facility] 03/06/2022 13:11:24 12/04/19 22 A1C level 7.0 to 7.9 completed Clive Pineda [facility] 12/03/2021 14:19:16 11/29/19 22 Cerumen Removal completed Giovanni Glass MD [address], [place], [address] 11/28/2021 10:57:35 08/30/19 22 Positive Microalbumin [...] A1C level 7.0 to 7.9 completed Myah Oliver [place] - [facility] 11/02/2020 13:15:09 08/25/19 21 Diastolic B/P less than 80 mm Hg completed Paula Hay [place] - [facility] 08/24/2020 09:28:23 08/25/19 21 Systolic B/P 130-139 mm Hg completed Paula Hay [place] - [facility] 08/24/2020 09:28:20 08/01/19 21 Diastolic B/P less than 80 mm Hg completed Myah Rama [place] - [facility] 08/01/2020 16:31:17 08/01/19 21 Systolic B/P 130-139 mm Hg completed Myah Oliver [place] - [facility] 08/01/2020 16:31:11 08/01/19 21 [...] Paula Hay [place] - [facility] 09/08/2019 12:57:34 04/01/20 20 Diastolic B/P less than 80 mm Hg completed Paula Hay [facility] 09/08/2019 12:57:39 08/11/19 20 Systolic B/P less than 130 mm Hg completed Paula Gerard [facility] 08/11/2019 13:09:51 08/11/19 20 Diastolic B/P 80-89 mm Hg completed [facility] 08/11/2019 13:09:55 06/10/19 20 Systolic B/P less than 130 mm Hg completed [facility] 06/10/2019 12:57:49 06/10/19 20 Diastolic B/P 80-89 mm Hg completed [facility] 06/10/2019 12:57:53 10/25/19 18 Advance Care Planning completed Corine Welch RN [address], [place], [address], [facility] 10/24/2017 08:56:49 Cataract Surgery completed Corine Welch RN [address], [place], [address], [facility] 10/24/2017 09:14:03 Imaging Results None recorded. Procedure [...] on: 01/11/20 11 3:55PM;U ser: varunEst Sam Completjair on: 04/09/20 11 Not Available Not Available Not Available Keflex 500 mg capsule take 1 capsule (500 mg) by oral route every 12 hours for 10 days 05/12 completed Keflex 500 mg oral capsule; Recorded Status: Recorded on: 04/18/20 08 11:01AM; Disconti nued Status: Disconti nued on: 05/12/20 08 3:46PM;U ser: Tima Wilks on: 04/28/20 08;Print ed: 04/18/20 08 Not Available Not Available Not Available Avelox 400 mg tablet take 1 tablet (400 mg) by oral route once daily for 10 days 10/15 completed Avelox 400 mg oral tablet;R ecorded Status: Recorded on: 10/16/19 12 9:37AM;D iscontin ued Status: Disconti nued on: 10/16/19 12 11:38AM; User: jadyn De La OEstSam Completi on: 11/05/19 12;Indic ation: Bronchit is, [...] nued on: 09/06/19 12 11:49AM; User: varunEst Sam Completi on: 12/30/19 12;Indic ation: Type 2 [...] Available Not Available Nasonex 50 mcg/actua tion [place] 1 sniff bilat bid 09/15 completed Nasonex [...] nued on: 04/18/20 08 11:05AM; User: Tima lam Completi on: 07/17/19 09;Indic ation: Symptoma tic [...] er's instruct ions. Insulin dosing requires individu urio n. 04/22 completed Levemir 100 unit/mL subcutan [...] Not Available Not Available Easy Comfort Pen [place] 32 gauge x 5/32 USE DIRECTED DAILY [...] INJECT 1mg UNDER hte SKIN EVERY WEEK 03/17/ 2025 active Not Available Not Available Not Avai [...] Updated DateTime 5 182.88 cm 26.6 kg/m2 71635.1 g 97.7 [degF] 72 /min 96 % 18 /min 0 122/70 mm[Hg] Clive Sung [place] - [facility] 5 09:50:24 Social History Question Answer Notes LastModified by Organization Details LastModified Time Tobacco Smoking Status Former Smoker Paula sheridan [facility] 04/08/2016 13:03:41 Able To Swim? Yes [...] Or The Highest Degree You Have Received? [id number] Information not available 01/18/2021 Swimming/diving No Informati [...] 04/10/2016 What Is Your Current Pack Years? 30ormorepackyear s Information not available 03/06/2022 Do You [...] anxious, or unable to sleep at night)? NZ9530-4 Information not available 01/18/2021 Do you have [...] colitis N Cerebrovascular Disease N Depression N Guillain-[place] N Sleep Apnea N Aneurysm N Bronchitis [...] mcg/0.25mL dose 1 completed Radha Whittaker null, [place] - [facility] 05/26/2024 10:16:32 Influenza, split virus, trivalent, PF 2 completed Radha sheridan, [place] - [facility] 05/26/2024 10:16:32 Influenza, high-dose, quadrivalent, PF 0 completed Shahnaz Herman APRN [address], [place], [address], [place] - [facility] 03/14/2020 16:08:39 Influenza, high-dose, quadrivalent, PF 1 completed Giovanni Glass MD [address], [place], [address], [place] [facility] 03/21/2021 14:31:50 influenza, unspecified formulation 0 completed Not Available [facility] 02/01/2023 11:37:23 influenza, unspecified formulation 1 completed Not Available [facility] 02/01/2023 11:37:23 influenza, unspecified formulation 2 completed Radha sheridan, [place] - [facility] 05/26/2024 10:16:32 influenza, unspecified formulation 3 completed Not Available [facility] 02/01/2023 11:37:23 influenza, unspecified formulation 4 completed Not Available [facility] 02/01/2023 11:37:23 influenza, unspecified formulation 5 completed Not Available [facility] 02/01/2023 11:37:23 influenza, unspecified formulation 8 completed Not Available [facility] 02/01/2023 11:37:23 influenza, unspecified formulation 9 completed Not Available [facility] 02/01/2023 11:37:23 Influenza, split virus, quadrivalent, preservative 7 completed Not Available [facility] 06/26/2019 03:54:42 COVID-19, mRNA, LNP-S, PF, 100 mcg/0.5mL dose or 50 mcg/0.25mL dose 2 completed Giovanni Glass MD [address], [place], [address], [place] [facility] 06/21/2021 11:12:07 Influenza, high-dose, quadrivalent, PF 2 completed Marcelina Longo APRN [address], [place], [address], [place] [facility] 03/06/2022 13:31:11 Influenza, high-dose, quadrivalent, PF 3 completed Paula sheridan, [place] - [facility] 03/13/2023 09:48:17 Influenza, split virus, quadrivalent, preservative 6 completed Not Available [facility] 02/01/2023 11:37:23 zoster live 9 completed Not Available [facility] 02/01/2023 11:37:23 Influenza, high-dose, trivalent, PF 4 completed Debra Barajas MD [address], [place], [address], [place] [facility] 03/09/2024 15:47:29 Tdap 4 completed Paula Gee fatimah, [place] - [facility] 05/19/2024 16:57:05 Pneumococcal conjugate PCV20, polysaccharide DRR155 conjugate, adjuvant, PF 4 completed Paula Hay [place], [place] - [facility] 05/19/2024 16:57:56 Influenza, high-dose, trivalent, PF 5 completed Giovanni Glass MD [address], [place], [address], [place] [facility] 03/24/2025 13:57:50 Influenza, high-dose, trivalent, PF 8 completed Not Available [facility] 06/26/2019 03:55:10 SARS-COV-2 (COVID-19) vaccine, UNSPECIFIED 1 completed Radha sheridan, [place] - [facility] 05/26/2024 10:16:32 SARS-COV-2 (COVID-19) vaccine, UNSPECIFIED 1 completed Radha sheridanKODI - [facility] 05/26/2024 10:16:32 Influenza, high-dose, trivalent, PF 9 completed Not Available [facility] 06/26/2019 03:56:04 Past Encounters Encounter ID Performer Location Encounter Start Date Encounter Closed Date Diagnosis/Indication Diagnosis SNOMED-CT Code Diagnosis ICD10 Code Diagnosis IMO Codes Diagnosis Note [id number] Giovanni Glass MD [address] [place] [address] 03/24/2025 12:50:33 03/24/2025 13:50:15 Obesity 477632231 E66.9 Influenza vaccine needed 3866972254 106 Z23 Benign ess ential hypertension 9779730 I10 Peripheral vascular disease 329721017 I73.9 Essential hypertension 62003176 I10 Mixed hyperlipidemia 267 896563 E78.2 Hyperlipidemia 34308879 E78.5 Long-term current use of anticoagulant 121114755 Z79.01 Deep venou s thrombosis 885359938 I82.409 History of deep vein thrombosis 222818981 Z86.718 History of pulmonary embolus 604045554 Z86.711 Hyperglyce nhan due to type 2 diabetes mellitus 0501282664 06250 E11.65 Testicular hypofunction 189845488 E29.1 Vitamin D deficiency 347 62357 E55.9 Chronic ki dney disease stage 3 361932013 N18.30 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 8350226138 05 E11.22 Impotence 767333626 F52. 21 Peripheral neuropathy due to type 2 diabetes mellitus 0462201298 107 E11.42 Chronic sy stolic heart failure [id number] I50.22 [id number] Pruritic d isorder of skin 1268596927 L29.9 37533 Weakness o f bilateral lower limb 4888233001 97894 R29.898 031957 Overweight in adulthood with body mass index of 25 or more but less than 30 590673223 Z68.26 [id number] Marcelina Longo APRN [address] [place] [id number] 04/06/2025 09:36:33 04/06/2025 10:11:00 Hyperglycemia due to type 2 diabetes mellitus 1023807222 17142 E11.65 Benign ess ential hypertension 1167355 I10 Obesity 676258552 E66.9 Peripheral vascular disease 760927495 I73.9 Body mass index 25-29 - overweight 928839628 Z68.25 Peripheral neuropathy due to type 2 diabetes mellitus 5243815420 107 E11.42 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 7907087374 05 E11.22 Mixed hyperlipidemia 267 468882 E78.2 History of deep vein thrombosis 867194168 Z86.718 History of pulmonary embolus 520572223 Z86.711 Vitamin D deficiency 347 15826 E55.9 Iron defic iency anemia 42598874 D50.9 Prostate s pecific antigen above reference range 248565723 R97.20 Overweight in adulthood with body mass index of 25 or more but less than 30 566923504 Z68.26 960597 Nocturia 034456796 R35.1 76969 History of heart failure 595972045 Z86.79 804664 Health Concerns Section Related Observation LastModified by Organization Detai ls LastModified Time None Recorded Concern Status LastModified by Organization Details LastModified Time None Recorded Payers Encounter Date Sequence Insurance Name Policy Number Policy Mcintyre Covered Member ID Mcintyre Member ID Guarantor Name 04/06/2025 1 [employer] (MEDICARE REPLACEMENT/A DVANTAGE - PPO) Owen Salazar [id number] Owen Salazar Notes Date Note Type Note Provider Name and Address Organization Details Recorded Time 04/06/2025 text/html Saul presents for 3 month [...] His PCP is Dr. Glass. He sees feather boner, Dr. Moser, every 3 months. His open source developer is Dr. Juárez. He refuses colonoscopy or cologuard. Last PSA: 02/25/2024 - he refuses to have blood drawn today because he was stuck so many times during his recent hospitalization. Chronic issues reviewed and stable. Marcelina Longo, [facility] [address], [place], [address], [place] - [facility] 04/06/2025 10:12:12
--- OUTSIDE RECORDS SUMMARY | 2025-04-28 12:53 | XMS_ITS | Encounter Summary ---
Author Organization Healthcare Address [address] [id number] Care Team Providers Care Molding Utility Worker Name Role Phone Pcp, No Primary Care Provider Unavailabl e Encounter Details Date Type Department Care Team (Latest Contact Info) Description 03/09/2025 Travel Social History Tobacco Use Types Packs/Day Years Used Date Smoking Tobacco: Former Cigarettes 1 50 1 957 - 2006 Passive Smoke Exposure: Past Smokeless Tobacco: Never Alcohol Use Standard Drinks/Week Comments Never 0 [...] any time in the past 12 m [facility], were you homeless or living in a chcf (including now)? No 03/07/2025 [facility] Utilities Answer Date Recorded In the past 12 months has th e electric, gas, oil, or water company threatened to shut off services in your home? No 03/07/2025 Sex and Gender Information Value Date Recorded Sex Assigned at Not on file Legal Sex Male 8:26 PM EDT Gender Identity Not on file Sexual Orientation Not on file documented as of this encounter Functional Status * Calculated C-SSRS Risk Score (Lifetime/Recent) Answer Date of Assessment Author No Risk Indicated 03/09/2025 7:30 PM EDT Alondra Quiros RN * Question Answer Date of Assessment Author 1. Wish to be (Past 1 Month) No 025 7:30 PM EDT Alondra Quiros, JASS 2. Non-Specific Active Suici levi Thoughts (Past 1 Month) No 03/09/2025 7:30 PM EDT Alondra Quiros, JASS 6. Suicidal Behavior (Lifetime) No 7:30 PM EDT Alondra Quiros, JASS documented as of this encounter Plan of Treatment Not on file documented as of this encounter Visit Diagnoses Not on filedocumented in this encounter Additional Health Concerns Assessment Noted Time A Body Mass Index follow-up plan has been documented for the patient 03/10/2025 3:20 PM EDT documented as of this encounter Care Teams Molding Utility Worker Relationship Specialty Start Date End Date Pcp, No [address] [place] [address] PCP - General Family Medicine 03/06/25 documented as of this encounter
--- OUTSIDE RECORDS SUMMARY | 2025-04-28 12:53 | XMS_ITS | Clinical Summary ---
Author Organization Healthcare Address [address] [id number] Care Team Providers Care Paving Crew Foreman Name Role Phone Pcp, No Primary Care Provider Unavailabl e Allergies No known active allergies Medications tiotropium-oloda terol (Stiolto Respimat) 2.5-2.5 MCG/ACT aerosol solution inhaler Inhale 2 Inhalations daily. 4 g 1 5 Active apixaban (Eliquis) 5 MG tablet Take 1 tablet by mouth 2 times a day. 60 tablet 2 5 Active nitroglycerin (Nitrostat) 0.[address] 1 tablet under the tongue every 5 minutes as needed for chest pain. 25 tablet 2 5 Active sodium bicarbonate 650 MG tablet Take 1 tablet by mouth 3 times a day. 90 tablet 1 5 05/09/20 25 Active insulin glargine (Lantus SoloStar) 100 UNIT/ML injection pen Inject 5 Units under the skin every morning. 15 mL 2 5 Active Ozempic, 1 MG/DOSE, 4 MG/3ML solution pen-injector Inject 1 mg under the skin 1 time per week. Sundays 3 mL 2 5 Active furosemide (Lasix) 20 MG tablet Take 1 tablet by mouth every morning. 30 tablet 5 5 09/07/19 26 Active amLODIPine (Norvasc) 2.5 MG tablet Take 1 tablet by mouth every morning. 30 tablet 1 5 05/09/20 25 Active diphenhydrAMINE- acetaminophen (Tylenol PM) 25-500 MG per tablet Take 1 tablet by mouth at night as needed for sleep. 14 tablet 5 05/09/20 25 Active pantoprazole (Protonix) 40 MG EC tablet Take 1 tablet by mouth daily. 30 tablet 1 5 05/09/20 25 Active atorvastatin (Lipitor) 10 MG tablet Take 1 tablet by mouth nightly. 30 tablet 1 5 05/09/20 25 Active carvedilol (Coreg) 25 MG tablet Take 1 tablet by mouth 2 times a day. 60 tablet 5 5 09/07/19 26 Active Blood Glucose Monitoring Suppl device Test two times daily 1 each 5 Active glucose blood test strip Test two times daily 100 strip 11 5 Active Lancets misc Test two times daily 100 each 11 5 Active Alcohol Sheets (Alcoh-Wipe) sheet Use as directed. 100 each 11 Active pen needle, diabetic 31G X 5 MM misc Use as directed with insulin pen. 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 Overview (03/07/2025): -recurrent RLE DVT x 3 attributed to extended travel -OSH D-dimer normal PLAN -continue Xarelto Type 2 diabetes mellitus wit h chronic kidney disease, with long-term current use of insulin Encounters Date Type Department Care Team Description 04/01/2025 Telephone [facility] [address] [place] [address] Sybil Segura RN 03/09/2025 Travel 03/08/2025 Travel 03/07/2025 Travel 03/06/2025 7:34 PM EDT - 03/10/2025 5:07 PM EDT Hospital Encounter [facility] Inpatient [address] [place] [address] Nabor Tam MD Sweeney, MD Yesi Elizalde, Elgin Luciano MD Keyur, Harish Ghotra MD ROSA (acute kidney injury) ([facility]) (Primary Dx); SVT (supraventricular tachycardia) ([facility]) Discharge Disposition: Home or Self Care 03/06/2025 Travel from Last 3 Months Immunizations Immunization Administration Dates Next Due Influenza, High-dose, Split Virus, Trivalent, Injectable, preservative free 03/09/2024,03/12/2019,03/11/2018 Influenza, Unspecified 02/23/2015,2013,03/17/2013,2011,03/05/2011,03/13/2010,03/07/2009,1 Influenza, high-dose, quadrivalent 03/13,03/06/2022,03/21/2021,2019,03/12/2019 Influenza, injectable, quadrivalent 03/27/2017 Influenza, seasonal, injecta ble, preservative free 02/26/2012 Pneumococcal 20-jo-ann Conj Vaccine 05/19/2024 Tdap 05/19/2024 Zoster, live 05/23/2009 Family History Medical History Relation Name Comments No Known Problems Son Relation Name Status Comments Father Mother (Age 93) Son Alive Social History Tobacco Use Types Packs/Day Years [...] any time in the past 12 m [facility], were you homeless or living in a skilled nursing (including now)? No 03/07/2025 [facility] Utilities Answer Date Recorded In the past 12 months has th e [employer], gas, oil, or water company threatened to shut off services in your home? No 03/07/2025 Sex and Gender Information Value Date Recorded Sex Assigned at Not on file Legal Sex Male 8:26 PM EDT Gender Identity Not on file Sexual Orientation Not on file Last Filed Vital Signs Vital Sign Reading [...] Mass Index 24.94 03/07/2025 9:22 PM EDT Plan of Treatment Health Maintenance Due Date Last Done Comments [facility]-Depression Screening 1940 [facility]-Medicare Annual Wellness (AWV) 1940 [facility]-/Child/Adol SDOH Screenings 1940 Diabetes: Dental Exam 1951 [facility]-Zoster Vaccines (2 of 3) 07/18/2009 05/23/2009 [facility]-RSV Vaccine: 60+ Years or (1 - 1-dose 75+ series) 2016 [id number] Vaccine ( - 2024- season) 2025 06/21/2021, 09/07/2020, 08/08/2020 [facility]-Diabetes: Hemoglobin A1C 06/05/2025 03/06/2025 [facility]- SDOH Screenings 09/04/2025 [facility]-Adult SDOH Screenings 09/04/2025 03/07/2025 [facility]-DTaP,Tdap,and Td Vaccines (2 - Td or Tdap) 05/19/2034 05/19/2024 [facility]-Pneumococcal Vaccine: 50+ Years Completed 05/19/2024 [facility]-Influenza Vaccine Completed 03/24/2025 , 03/09/2024, 03/13/2023, Additional history exists HPV Vaccines Aged Out No longer eligi ble based on patient's age to complete this topic [facility]-HIB Vaccines Aged Out No longer e ligible based on patient's age to complete this topic [facility]-Hepatitis A Vaccines Aged Out No longer eligible based on patient's age to complete this topic [facility]-IPV Vaccines Aged Out No longer e ligible based on patient's age to complete this topic [facility]-Rotavirus Vaccines Aged Out No lo nger eligible based on patient's age to complete this topic Procedures Procedure Name Priority Date/Time Associated Diagnosis Comments POCT GLUCOSE METER UNSOLICITED RESULTS Routine 03/10/2025 12:13 PM EDT POCT GLUCOSE METER UNSOLICITED RESULTS Routine 03/10/2025 7:25 AM EDT KAPPA LAMBDA QUANTITATIVE FREE LIGHT CHAINS WITH RATIO Routine 03/10/2025 2:04 AM EDT KAPPA LAMBDA QUANT FREE LIGHT CHAINS WITH RATIO ORDERABLE Routine 03/10/2025 2:04 AM EDT ACUTE HEPATITIS PANEL Routine 03/10/2025 2:04 AM EDT CBC W/O DIFFERENTIAL Routine 03/10/2025 2:04 AM EDT CYSTATIN C Routine 03/10/2025 2:04 AM EDT C-REACTIVE PROTEIN, PLASMA Routine 03/10/2025 2:04 AM EDT PHOSPHORUS, PLASMA Routine 03/10/2025 2: 04 AM EDT MAGNESIUM, PLASMA Routine 03/10/2025 2:0 4 AM EDT COMPREHENSIVE METABOLIC PANEL, PLASMA Routine 03/10/2025 2:04 AM EDT POCT GLUCOSE METER UNSOLICITED RESULTS Routine 03/09/2025 9:00 PM EDT PROTEIN ELECTROPHORESIS, PATHOLOGIST INTERPRETATION Routine 03/09/2025 5:32 PM EDT THROMBOSPONDIN TYPE-1 DOMAIN-CONTAINING 7A ANTIBODIES, S Routine 03/09/2025 5:32 PM EDT PHOSPHOLIPASE A2 RECEPTOR, IMMUNOFLUORESCENCE, S Routine 03/09/2025 5:32 PM EDT TOTAL PROTEIN, SERUM Routine 03/09/2025 5:32 PM EDT PROTEIN ELECTROPHORESIS, SERUM Routine 03/09/2025 5:32 PM EDT GLOMERULAR BASEMENT MEMBRANE ANTIBODY, IGG (SO) Routine 03/09/2025 5:32 PM EDT PROTEIN ELECTROPHORESIS, SERUM Add-On 03/09/2025 5:32 PM EDT ANTINUCLEAR ANTIBODY (LC) WITH HEP-2 SUBSTRATE, IGG BY IFA (SO) Routine 03/09/2025 5:32 PM EDT PRIMARY MEMBRANOUS NEPHROPATHY DIAGNOSTIC CASCADE, S (SO) Routine 03/09/2025 5:32 PM EDT POCT GLUCOSE METER UNSOLICITED RESULTS Routine 03/09/2025 5:[address] ABDOMEN PELVIS WO IV CONTRAST Routine 03/09/2025 4:47 PM EDT POCT GLUCOSE METER UNSOLICITED RESULTS Routine 03/09/2025 1:15 PM EDT POCT GLUCOSE METER UNSOLICITED RESULTS Routine 03/09/2025 7:58 AM EDT POCT GLUCOSE METER UNSOLICITED RESULTS Routine 03/09/2025 3:38 AM EDT RHEUMATOID FACTOR, PLASMA Add-On 03/09/2025 12:33 AM EDT C4 COMPLEMENT Add-On 03/09/2025 12:33 AM EDT C3 COMPLEMENT Add-On 03/09/2025 12:33 AM EDT PTH INTACT TOTAL Routine 03/09/2025 12:3 3 AM EDT PROSTATE CANCER SCREEN, SERUM Routine 03/09/2025 12:33 AM EDT IRON & TOTAL IRON BINDING CAPACITY, PLASMA (INCLUDES TRANSFERRIN) Routine 03/09/2025 12:33 AM EDT SCHISTOCYTE SMEAR Routine 03/09/2025 12: 33 AM EDT PROTHROMBIN TIME(PT) / INR Routine 03/09/2025 12:33 AM EDT VITAMIN B12, SERUM Routine 03/09/2025 12 :33 AM EDT FOLATE, SERUM Routine 03/09/2025 12:33 AM EDT CBC W/O DIFFERENTIAL Routine 03/09/2025 12:33 AM EDT CYSTATIN C Routine 03/09/2025 12:33 AM EDT C-REACTIVE PROTEIN, PLASMA Routine 03/09/2025 12:33 AM EDT PHOSPHORUS, PLASMA Routine 03/09/2025 12 :33 AM EDT MAGNESIUM, PLASMA Routine 03/09/2025 12: 33 AM EDT COMPREHENSIVE METABOLIC PANEL, PLASMA Routine 03/09/2025 12:33 AM EDT PROTEIN, URINE, 24 HOUR Routine 03/08/20 10:07 PM EDT CREATININE, 24 HOUR URINE Routine 03/08/2025 10:07 PM EDT ALBUMIN-CREATININE RATIO, 24 HR URINE Routine 03/08/2025 10:07 PM EDT POCT GLUCOSE METER UNSOLICITED [...] DIMER, QUANTITATIVE Routine 03/08/2025 6:15 AM EDT CBC W/O DIFFERENTIAL Routine 03/08/2025 6:15 AM EDT CYSTATIN C Routine 03/08/2025 6:15 AM EDT C-REACTIVE PROTEIN, PLASMA Routine 03/08/2025 6:15 AM EDT PHOSPHORUS, PLASMA Routine 03/08/2025 6: 15 AM EDT MAGNESIUM, PLASMA Routine 03/08/2025 6:1 5 AM EDT COMPREHENSIVE METABOLIC PANEL, PLASMA Routine 03/08/2025 6:15 AM EDT OSMOLALITY, URINE Routine 03/07/2025 9:2 7 PM EDT UREA NITROGEN, RANDOM URINE Routine 03/07/2025 9:27 PM EDT CHLORIDE, RANDOM URINE Routine 9:27 PM EDT SODIUM, URINE, RANDOM Routine 03/07/2025 9:27 PM EDT PROTEIN, URINE, RANDOM WITH CREATININE Routine 03/07/2025 9:27 PM EDT POTASSIUM, URINE, RANDOM Routine 03/07/2025 9:27 PM EDT ALBUMIN, URINE, RANDOM Routine 9:27 PM EDT POCT GLUCOSE METER [...] CYSTATIN C Add-On 03/07/2025 4:43 AM EDT BLOOD GAS PANEL, VENOUS Routine 03/07/20 4:43 AM EDT FOLATE, SERUM Routine 03/07/2025 4:43 AM EDT VITAMIN B12, SERUM Routine 03/07/2025 4: 43 AM EDT PROTHROMBIN TIME(PT) / INR Routine 03/07/2025 4:43 AM EDT MAGNESIUM, PLASMA Routine 03/07/2025 4:4 3 AM EDT RENAL FUNCTION PANEL, PLASMA Routine 03/07/2025 4:43 AM EDT CBC W/O DIFFERENTIAL Routine 03/07/2025 4:43 AM EDT FERRITIN, SERUM Routine 03/07/2025 4:43 AM EDT ECG ADULT Routine 03/07/2025 3:48 AM EDT POCT GLUCOSE METER UNSOLICITED RESULTS Routine 03/07/2025 2:08 AM EDT URINALYSIS MICROSCOPIC FOR UA REFLEX STAT 03/07/2025 2:00 AM EDT UREA NITROGEN, RANDOM URINE STAT 03/07/2025 2:00 AM EDT PROTEIN, URINE, RANDOM WITH CREATININE STAT 03/07/2025 2:00 AM EDT SODIUM, URINE, RANDOM STAT 03/07/2025 2:00 AM EDT URINALYSIS WITH REFLEX MICROSCOPIC STAT 03/07/2025 2:00 AM EDT DRUG ABUSE SCREEN, URINE STAT 03/07/2025 2:00 AM EDT SARS COV-2/COVID-19 BY PCR - RAPID STAT 03/07/2025 12:12 AM EDT NASOPHARYNGEAL RESPIRATORY PANEL STAT 03/07/2025 12:12 AM EDT TROPONIN T, HIGH SENSITIVITY, 2 HOUR, PLASMA Timed 03/06/2025 10:05 PM EDT ANTI XA LEVEL UNFRACTIONATED HEPARIN STAT 03/06/2025 8:26 PM EDT XR CHEST 1 VIEW STAT 03/06/2025 8:04 PM EDT IRON & TOTAL IRON BINDING CAPACITY, PLASMA (INCLUDES TRANSFERRIN) Add-On 03/06/2025 7:57 PM EDT HEMOGLOBIN A1C Add-On 03/06/2025 7:57 PM EDT PHOSPHORUS, PLASMA Add-On 03/06/2025 7: 57 PM EDT N-TERMINAL PROBNP, PLASMA STAT 03/06/2025 7:57 PM EDT FREE T4, PLASMA STAT 03/06/2025 7:57 PM EDT TSH STAT 03/06/2025 7:57 PM EDT TROPONIN T, HIGH SENSITIVITY, 0 HOUR, PLASMA, REFLEX TO 2 HOUR STAT 03/06/2025 7:57 PM EDT LACTATE, VENOUS STAT 03/06/2025 7:57 PM EDT LIPASE, PLASMA STAT 03/06/2025 7:57 PM EDT MAGNESIUM, PLASMA STAT 03/06/2025 7:5 7 PM EDT COMPREHENSIVE METABOLIC PANEL, PLASMA STAT 03/06/2025 7:57 PM EDT PROTHROMBIN TIME(PT) / INR STAT 03/06/2025 7:57 PM EDT CBC WITH AUTO DIFFERENTIAL STAT 03/06/2025 7:57 PM EDT POCT ARTERIAL BLOOD GAS GEM UNSOLICITED RESULTS Routine 03/06/2025 7:48 PM EDT ECG ADULT Routine 03/06/2025 7:47 PM EDT EXTRA TUBE LIGHT GREEN TOP Routine 03/06/2025 7:47 PM EDT EXTRA TUBES Routine 03/06/2025 7:47 PM EDT ECG ADULT STAT 03/06/2025 7:31 PM EDT FL CRITICAL CARE, E/M 30-74 MINUTES Routine 03/06/2025 7:17 PM EDT from Last 3 Months Results * (ABNORMAL) POCT glucose meter (03/10/2025 12:13 PM EDT) Only the most recent of16 resultswithin the time period is included. [facility] POCT Glucose 192(H) 74 - 99 mg/dL 03/10/2025 12:15 PM EDT [facility] Comment:Accuracy of a glucos e result [...] for testing. Comment 03/10/2025 12:15 PM EDT [facility] Service Secretary ID Daniel Loving V 025 12:15 PM EDT HEALTHCARE LAB Device ID [id number] 03/10/2025 12:15 PM EDT [facility]ALTH[facility]ARE [facility] Specimen Type POC Capillary 03/10/2025 12:15 PM EDT [facility] Blood Capillary blood specimen / Unknown 03/10/2025 12:13 PM EDT 03/10/2025 12:15 PM EDT Harish Baer MD LAB POINT OF CARE TE ST DOCKED DEVICE UNSOLICITED RESULTS Final Result [facility] [address] [place] [address] * (ABNORMAL) [place] Lambda Quant Free Light Chains w/Ratio (03/10/2025 2:04 AM EDT) Pathologist [facility] [place] Lambda Free Light Chain Ratio 1.21 0.26 - 1.65 Ratio 03/11/2025 12:24 AM EDT [facility] [place] Quant Free Light Chains 61.25(H) 3.30 - 19.40 mg/L 03/11/2025 12:24 AM EDT [facility] Lambda Quant Free Light Chains 50.82(H) 5.71 - 26.30 mg/L 03/11/2025 12:24 AM EDT [facility] Blood Venous blood specimen / Unknown Venipuncture / Unknown 03/10/2025 2:04 AM EDT 03/10/2025 2:13 AM EDT Narrative [facility] - 03/11/2025 12:24 AM EDT [...] with the testing laboratory. Test performed at [facility],Special Chemistry Laboratory. us Harish Baer MD LAB BLOOD ORDERABLES Final Resu lt Performing Organization Address [facility]/ZIP Co de Phone Number [facility] [address] [place] [address] * (ABNORMAL) Cystatin C (03/10/2025 2:04 AM EDT) Only the most recent of4 resultswithin the time period is included. Pathologist [facility] [place] Cystatin C 3.22(H) 0.61 - 0.95 mg/L 03/10/2025 2:46 AM EDT [facility] Blood Venous blood specimen / Unknown Venipuncture / Unknown 03/10/2025 2:04 AM EDT 03/10/2025 2:14 AM EDT us Harish Baer MD LAB BLOOD ORDERABLES Final Resu lt Performing Organization Address [facility] Co de Phone Number [facility] [address] [place] [address] * Hepatitis panel, acute (03/10/2025 2:04 AM EDT) [facility] Hepatitis B Surf Antigen Negative Negative 03/10/2025 3:44 AM EDT [facility] Hepatitis C Antibody Negative Negative 03/10/2025 3:44 AM EDT [facility] Hepatitis A Antibody IgM Negative Negative 03/10/2025 3:44 AM EDT [facility] Hepatitis B Core Antibody IgM Negative Negative 03/10/2025 3:44 AM EDT [facility] Blood Venous blood specimen / Unknown Venipuncture / Unknown 03/10/2025 2:04 AM EDT 03/10/2025 2:13 AM EDT us Harish Baer MD LAB BLOOD ORDERABLES Final Resu lt Performing Organization Address [facility] Co de Phone Number [facility] [address] [place] [address] * (ABNORMAL) CBC W/O Differential (03/10/2025 2:04 AM EDT) Only the most recent of4 resultswithin the time period is included. Pathologist [facility] [place] WBC Count 4.02 3.70 - 10.30 10*3/uL LAB HEMATOLOGY METHOD 03/10/2025 2:22 AM EDT [facility] RBC Count 2.90(L) 4.60 - 6.10 10*6/uL LAB HEMATOLOGY METHOD 03/10/2025 2:22 AM EDT [facility] HGB 8.6(L) 13.7 - 17.5 g/dL LAB HEMATOLOGY METHOD 03/10/2025 2:22 AM EDT [facility] HCT 26.2(L) 40.0 - 51.0 % LAB HEMATOLOGY METHOD 03/10/2025 2:22 AM EDT [facility] Platelet Count 159 155 - 369 10*3/uL LAB HEMATOLOGY METHOD 03/10/2025 2:22 AM EDT [facility] MCV 90 79 - 98 fL LAB HEMATOLOGY METHOD 03/10/2025 2:22 AM EDT [facility] MCH 29.7 26.0 - 32.0 pg LAB HEMATOLOGY METHOD 03/10/2025 2:22 AM EDT [facility] MCHC 32.8 30.7 - 35.5 g/dL LAB HEMATOLOGY METHOD 03/10/2025 2:22 AM EDT [facility] RDW 13.2 11.5 - 14.5 % LAB HEMATOLOGY METHOD 03/10/2025 2:22 AM EDT [facility] MPV 10.4 8.8 - 12.5 fL LAB HEMATOLOGY METHOD 03/10/2025 2:22 AM EDT [facility] nRBC 0.0 <=0.0 per 100 WBCs LAB HEMATOLOGY METHOD 03/10/2025 2:22 AM EDT [facility] Blood Venous blood specimen / Unknown Venipuncture / Unknown 03/10/2025 2:04 AM EDT 03/10/2025 2:14 AM EDT us Harish Baer MD LAB BLOOD ORDERABLES Final Resu lt [facility] [address] [place] [address] * (ABNORMAL) C-Reactive Protein, Plasma (03/10/2025 2:04 AM EDT) Only the most recent of3 resultswithin the time period is included. CRP, Plasma 26.7(H) <=8.0 mg/L 03/10/2025 2:46 AM EDT [facility] Blood Venous blood specimen / Unknown Venipuncture / Unknown 03/10/2025 2:04 AM EDT 03/10/2025 2:14 AM EDT Narrative [facility] - 03/10/2025 2:46 AM EDT This CRP test is appropriate for assessment of infection, systemic inflammation and/or tissue injury. To assess cardiovascular disease risk order high sensitivity CRP (CRPH). us Harish Baer MD LAB BLOOD ORDERABLES Final Resu lt Performing Organization Address [facility] Co de Phone Number [facility] [address] [place] [address] * Phosphorus, Plasma (03/10/2025 2:04 AM EDT) Only the most recent of4 resultswithin the time period is included. [facility] Phosphorus, Plasma 3.2 2.5 - 4.5 mg/dL 03/10/2025 2:46 AM EDT [facility] Blood Venous blood specimen / Unknown Venipuncture / Unknown 03/10/2025 2:04 AM EDT 03/10/2025 2:14 AM EDT us Harish Baer MD LAB BLOOD ORDERABLES Final Resu lt Performing Organization Address [facility]/ZIP Co de Phone Number [facility] [address] [place] [address] * (ABNORMAL) Magnesium, Plasma (03/10/2025 2:04 AM EDT) Only the most recent of5 resultswithin the time period is included. Magnesium, Plasma 1.8(L) 1.9 - 2.4 mg/dL 03/10/2025 2:46 AM EDT [facility] Blood Venous blood specimen / Unknown Venipuncture / Unknown 03/10/2025 2:04 AM EDT 03/10/2025 2:14 AM EDT us Harish Baer MD LAB BLOOD ORDERABLES Final Resu lt [facility] [address] [place] [address] * (ABNORMAL) Comprehensive Metabolic Panel, Plasma (03/10/2025 2:04 AM EDT) Only the most recent of4 resultswithin the time period is included. Glucose, Plasma 177(H) 74 - 99 mg/dL 03/10/2025 2:46 AM EDT [facility] BUN, Plasma 42(H) 8 - 23 mg/dL 03/10/2025 2:46 AM EDT [facility] Creatinine, Plasma 3.78(H) 0.70 - 1.20 mg/dL 03/10/2025 2:46 AM EDT [facility] BUN/Creatinine Ratio 11 03/10/2025 2:46 AM EDT [facility] Sodium, Plasma 136 136 - 145 mmol/L 03/10/2025 2:46 AM EDT [facility] Potassium, Plasma 3.8 3.6 - 4.9 mmol/L 03/10/2025 2:46 AM EDT [facility] Chloride, Plasma 104 97 - 107 mmol/L 03/10/2025 2:46 AM EDT [facility] CO2, Plasma 21(L) 22 - 29 mmol/L 03/10/2025 2:46 AM EDT [facility] Anion Gap 11 6 - 16 mmol/L 03/10/2025 2:46 AM EDT [facility] Total Calcium, Plasma 7.2(L) 8.9 - 10.2 mg/dL 03/10/2025 2:46 AM EDT [facility] Total Protein 4.1(L) 6.3 - 7.9 g/dL 03/10/2025 2:46 AM EDT [facility] Albumin, Plasma 2.0(L) 3.5 - 5.2 g/dL 03/10/2025 2:46 AM EDT [facility] AST, Plasma 17 10 - 50 U/L 03/10/2025 2:46 AM EDT [facility] ALT, Plasma 11 10 - 50 U/L 03/10/2025 2:46 AM EDT [facility] Alkaline Phosphatase, Plasma 75 40 - 115 U/L 03/10/2025 2:46 AM EDT [facility] Total Bilirubin, Plasma 0.3 0.2 - 1.1 mg/dL 03/10/2025 2:46 AM EDT [facility] eGFRcr 15.1 mL/min/1.7 3m*2 03/10/2025 2:46 AM EDT [facility] Comment:Reported eGFRcr in m L/min/1.73m2 is based the CKD-EPI 2020 equation that does not use a race coefficient. Blood Venous blood specimen / Unknown Venipuncture / Unknown 03/10/2025 2:04 AM EDT 03/10/2025 2:14 AM EDT Harish Baer MD LAB BLOOD ORDERABLES Final Resu lt [facility] [address] [place] [address] * Thrombospondin Type-1 Domain-Containing 7A Antibodies, S (03/09/2025 5:32 PM EDT) THSD7A Ab, S Negative Negative 03/14/2025 2:26 PM EDT [facility] Comment: ADDITIONAL INFORMATION This test was developed and its performance characteristics determined by [facility] in a manner consistent with CLIA requirements. This test has not been cleared or approved by the U.S. Food and Drug Administration. Test Performed by: [facility] - [address] [address] Wildlife Control Agent: Иван Mariaon Ph.D.; CLIA# [id number] Blood Venous blood specimen / Unknown Venipuncture / Unknown 03/09/2025 5:32 PM EDT 03/09/2025 5:59 PM EDT us Harish Baer MD LAB REF LAB BLOOD AND FLUID ORD Final Result Performing Organization Address [facility]/ZIP Co de Phone Number [facility] [place]) * Phospholipase A2 Receptor, Immunofluorescence, S (03/09/2025 5:32 PM EDT) PLA2R, Immunofluorescence, S Negative Negative 03/14/2025 2:26 PM EDT [facility] ([place]) Comment: PLA2R is Negative ADDITIONAL INFORMATION This test was developed and its performance characteristics determined by [facility] in a manner consistent with CLIA requirements. This test has not been cleared or approved by the U.S. Food and Drug Administration. Test Performed by: [place] [address] Wildlife Control Agent: Иван Mariano Ph.D.; CLIA# [id number] Blood Venous blood specimen / Unknown Venipuncture / Unknown 03/09/2025 5:32 PM EDT 03/09/2025 5:59 PM EDT Harish Baer MD LAB REF LAB BLOOD AND FLUID ORD Final Result Performing Organization Address [facility] Co de Phone Number [facility] [place]) * Primary Membranous Nephropathy Diagnostic [place], S (SO) (03/09/2025 5:32 PM EDT) Phospholipase A2 Receptor GIOVANNI,S <2 RU/mL 03/14/2025 11:46 AM EDT [facility] ([place]) Comment: REFERENCE VALUE <14 RU/mL: Negative >=14 to <20 RU/mL: Borderline >=20 RU/mL: Positive Test Performed by: [place] [address] Wildlife Control Agent: Иван Mariano Ph.D.; CLIA# [id number] Blood Venous blood specimen / Unknown Venipuncture / Unknown 03/09/2025 5:32 PM EDT 03/09/2025 5:59 PM EDT Harish Baer MD LAB REF LAB BLOOD AND FLUID ORD Final Result [facility] ([place]) * (ABNORMAL) Total Protein, Serum (03/09/2025 5:32 PM EDT) Total Protein 4.2(L) 6.2 - 7.7 g/dL 03/09/2025 6:22 PM EDT [facility] Blood Venous blood specimen / Unknown Venipuncture / Unknown 03/09/2025 5:32 PM EDT 03/09/2025 5:53 PM EDT Harish Baer MD LAB BLOOD ORDERABLES Final Resu lt [facility] [address] [place] [address] * (ABNORMAL) Protein Electrophoresis, Serum (03/09/2025 5:32 PM EDT) Albumin Electrophoresis, Serum 2.0(L) 3.6 - 4.7 g/dL 03/10/2025 2:36 AM EDT [facility] Alpha 1 Globulin Electrophoresis, Serum 0.4 0.2 - 0.4 g/dL 03/10/2025 2:36 AM EDT [facility] Alpha 2 Globulin Electrophoresis, Serum 1.0(H) 0.5 - 0.9 g/dL 03/10/2025 2:36 AM EDT [facility] Beta 1 Globulin Electrophoresis, Serum 0.2(L) 0.3 - 0.5 g/dL 03/10/2025 2:36 AM EDT [facility] Beta 2 Globulin Electrophoresis, Serum 0.3 0.2 - 0.5 g/dL 03/10/2025 2:36 AM EDT [facility] Gamma Globulin Electrophoresis, Serum 0.3(L) 0.6 - 1.5 g/dL 03/10/2025 2:36 AM EDT [facility] Interpretation, Serum Protein Electrophoresis Pathology report to follow. 03/10/2025 2:36 AM EDT [facility] Blood Venous blood specimen / Unknown Venipuncture / Unknown 03/09/2025 5:32 PM EDT 03/09/2025 5:54 PM EDT Harish Baer MD LAB BLOOD ORDERABLES Final Resu lt Performing Organization Address [facility] Co de Phone Number [facility] [address] [place] [address] * Protein electrophoresis serum, pathologist interpretation (03/09/2025 5:32 PM EDT) Clinical Diagnosis, SPEP Nephrotic Syndrome 03/10/2025 11:18 AM EDT [facility] Interpretation , SPEP There is [...] diagnosis or interpretation. 03/10/2025 11:18 AM EDT [facility] Pathologist Signature, SPEP Reviewed by: Sorin Montoya MD 03/10/2025 11:18 AM EDT [facility] CP ASR DISCLAIMER Yes 03/10/2025 11:18 AM EDT [facility] [facility] Blood Venous blood specimen / Unknown Venipuncture / Unknown 03/09/2025 5:32 PM EDT 03/09/2025 5:54 PM EDT Harish Baer MD LAB PATHOLOGY ORDERABLES Final Result Performing Organization Address [facility]/ZIP Co de Phone Number [facility] [address] [place] [address] * Glomerular Basement Membrane Antibody, IgG (03/09/2025 5:32 PM EDT) GBM AB, IGG BY MULTIPLEX BEAD ASSAY 0 0 - 19 AU/mL 03/12/2025 7:37 AM EDT [facility] ([facility]) Blood Venous blood specimen / Unknown Venipuncture / Unknown 03/09/2025 5:32 PM EDT 03/09/2025 5:54 PM EDT Narrative [facility] ([facility]) - 03/12/2025 7:37 AM EDT INTERPRETIVE INFORMATION: [...] and assessment of renal prognosis. Performed By: [employer] [address] [place] [id number] Electronics Engineering Manager: Xavi Queen MD, PhD CLIA Number: [id number] us Harish Baer MD LAB BLOOD ORDERABLES Final Resu [facility] [address] [place] [address] * Antinuclear Antibody (LC) with HEp-2 Substrate, IgG by IFA (03/09/2025 5:32 PM EDT) [facility] LC INTERPRETIVE COMMENT See Note 03/12/2025 11:08 PM EDT [facility] ([facility]) Anti Nuc Ab Screen <1:80 <1:80 03/12/2025 11:08 PM EDT [facility] ([facility]) Blood Venous blood specimen / Unknown Venipuncture / Unknown 03/09/2025 5:32 PM EDT 03/09/2025 5:54 PM EDT Narrative [facility] [place] ([facility]) - 03/12/2025 11:08 PM EDT Clinical Interpretation: [...] not necessarily rule out SARD. Performed By: [employer] [address] [place] [address] Electronics Engineering Manager: Xavi Queen MD, PhD CLIA Number: [id number] Harish Baer MD LAB BLOOD ORDERABLES Final Resu lt [facility] ([facility]) [address] [place] [address] * CT Abdomen Pelvis wo IV Contrast [...] MD IMG CT PROCEDURES Final Result * Schistocyte Smear (03/09/2025 12:33 AM EDT) Schistocytes No Significant Schistocytes or RBC Fragments seen. No Significant Schistocytes or RBC Fragments seen. LAB HEMATOLOGY METHOD 1:55 AM EDT [facility] RBC Morphology Slide Reviewed LAB HEMATOLOGY METHOD 1:55 AM EDT [facility] Blood Venous blood specimen / Unknown Venipuncture / Unknown 03/09/2025 12:33 AM EDT 03/09/2025 12:54 AM EDT Harish Baer MD LAB BLOOD ORDERABLES Final Resu lt Performing Organization Address [facility]/ZIP Co de Phone Number [facility] [address] [place] [address] * Prostate Cancer Screen, PSA Total (03/09/2025 12:33 AM EDT) Pathologist [facility] [place] Prostate Cancer Screen, Serum 2.11 0.00 - 6.50 ng/mL 03/09/2025 1:30 AM EDT [facility] Blood Venous blood specimen / Unknown Venipuncture / Unknown 03/09/2025 12:33 AM EDT 03/09/2025 12:52 AM EDT Narrative [facility] - 03/09/2025 1:30 AM EDT Performed by [employer] electrochemiluminescent immunoassay which is standardized against the PSA Bird Reference Standard (WHO 96/670). Results obtained with different test methods or kits cannot be used interchangeably. Harish Baer MD LAB BLOOD ORDERABLES Final Resu lt Performing Organization Address [facility]/ZIP Co de Phone Number [facility] [address] [place] [address] * (ABNORMAL) Iron & Total Iron Binding Capacity, Plasma (Includes Transferrin) (03/09/2025 12:33 AM EDT) Only the most recent of2 resultswithin the time period is included. Iron, Plasma 34(L) 50 - 170 ug/dL 03/09/2025 1:25 AM EDT [facility] Transferrin, Plasma 103(L) 200 - 360 mg/dL 03/09/2025 1:25 AM EDT [facility] Total Iron Binding Capacity, Plasma 129(L) 240 - 450 ug/mL 03/09/2025 1:25 AM EDT [facility] Transferrin Saturation 26 14 - 50 % 03/09/2025 1:25 AM EDT [facility] Blood Venous blood specimen / Unknown Venipuncture / Unknown 03/09/2025 12:33 AM EDT 03/09/2025 12:51 AM EDT us Harish Baer MD LAB BLOOD ORDERABLES Final Resu lt Performing Organization Address [facility] Co de Phone Number [facility] [address] [place] [address] * (ABNORMAL) Prothrombin Time/INR (03/09/2025 12:33 AM EDT) Only the most recent of3 resultswithin the time period is included. Prothrombin Time 29.8(H) 12.0 - 14.3 sec LAB COAGULATION METHOD 03/09/2025 1:15 AM EDT [facility] INR 2.8(H) 0.9 - 1.1 LAB COAGULATION METHOD 03/09/2025 1:15 AM EDT [facility] Blood Venous blood specimen / Unknown Venipuncture / Unknown 03/09/2025 12:33 AM EDT 03/09/2025 12:47 AM EDT Narrative [facility] - 03/09/2025 1:15 AM EDT OPTIMAL INR RANGES FOR PATIENT ON ORAL ANTICOAGULANT THERAPY Prevention of venous thromboembolism INR 2.0 to 3.0 In patients with heart disease: Atrial fibrillation INR 2.0 to 3.0 Valvular heart disease INR 2.0 to 3.0 Tissue heart valves INR 2.0 to 3.0 Mechanical prosthetic valves INR 2.5 to 3.5 Prevention of recurrent TN INR 2.5 to 3.5 us Harish Baer MD LAB BLOOD ORDERABLES Final Resu lt [facility] [address] [place] [address] * Rheumatoid factor, Plasma (03/09/2025 12:33 AM EDT) Rheumatoid Factor, Plasma <10 <14 IU/mL 03/09/2025 4:59 PM EDT [facility] Blood Venous blood specimen / Unknown Venipuncture / Unknown 03/09/2025 12:33 AM EDT 03/09/2025 12:51 AM EDT us Harish Baer MD LAB BLOOD ORDERABLES Final Resu lt Performing Organization Address [facility]/ZIP Co de Phone Number [facility] [address] [place] [address] * C3 complement (03/09/2025 12:33 AM EDT) C3 Complement 115 84 - 166 mg/dL 03/09/2025 5:00 PM EDT [facility] Blood Venous blood specimen / Unknown Venipuncture / Unknown 03/09/2025 12:33 AM EDT 03/09/2025 12:52 AM EDT us Harish Baer MD LAB BLOOD ORDERABLES Final Resu lt Performing Organization Address [facility]/[place] [address] * C4 complement (03/09/2025 12:33 AM EDT) C4 Complement 25 13 - 36 mg/dL 03/09/2025 5:00 PM EDT [facility] Blood Venous blood specimen / Unknown Venipuncture / Unknown 03/09/2025 12:33 AM EDT 03/09/2025 12:52 AM EDT us Harish Baer MD LAB BLOOD ORDERABLES Final Resu lt Performing Organization Address [facility]/[place] [address] * (ABNORMAL) PTH, intact (03/09/2025 12:33 AM EDT) PTH Intact Total 220(H) 9 - 77 pg/mL 03/09/2025 11:15 AM EDT [facility] Blood Venous blood specimen / Unknown Venipuncture / Unknown 03/09/2025 12:33 AM EDT 03/09/2025 1:08 AM EDT Narrative [facility] - 03/09/2025 11:15 AM EDT Assay performed by immunoassay at the [facility]. Performed on [employer] chemiluminescent immunoassay, tractable to the World Health Organization's first international standard for PTH from the [facility], Code 79/500. Results obtained from different test methods or kits cannot be used interchangeably. us Harish Baer MD LAB BLOOD ORDERABLES Final Resu lt Performing Organization Address [facility]/ZIP Co de Phone Number [facility] [address] [place] [address] * (ABNORMAL) Folate, Serum (03/09/2025 12:33 AM EDT) Only the most recent of2 resultswithin the time period is included. Folate, Serum 4.3(L) >4.6 ng/mL 03/09/2025 1:36 AM EDT [facility] Blood Venous blood specimen / Unknown Venipuncture / Unknown 03/09/2025 12:33 AM EDT 03/09/2025 12:52 AM EDT us Harish Baer MD LAB BLOOD ORDERABLES Final Resu lt Performing Organization Address [facility] Co de Phone Number [facility] [address] [place] [address] * Vitamin B12, Serum (03/09/2025 12:33 AM EDT) Only the most recent of2 resultswithin the time period is included. Vitamin B12, Serum 333 210 - 1,033 pg/mL 03/09/2025 1:36 AM EDT [facility] Blood Venous blood specimen / Unknown Venipuncture / Unknown 03/09/2025 12:33 AM EDT 03/09/2025 12:52 AM EDT us Harish Baer MD LAB BLOOD ORDERABLES Final Resu lt Performing Organization Address [facility]/ZIP Co de Phone Number [facility] [address] [place] [address] * (ABNORMAL) Albumin-creatinine ratio, 24 hr urine (03/08/2025 10:07 PM EDT) Microalbumin, Urine >440.0(H) <1.9 mg/dL 03/08/2025 11:16 PM EDT [facility] Albumin per day 11:16 PM EDT [facility] Comment:Unable to calculate, at least one value is above or below the detection limit. Microalbumin Excretion Rate 03/08/2025 11:16 PM EDT [facility] Comment:Unable to calculate, at least one value is above or below the detection limit. Creatinine, Urine 90 mg/dL 11:16 PM EDT [facility] Creatinine, 24H Ur 540(L) 800 - 2,500 mg/d 03/08/2025 11:16 PM EDT [facility] Comment:Unable to calculate, at least one value is above or below the detection limit. Albumin/Creatinin e Ratio 03/08/2025 11:16 PM EDT [facility] Comment:Unable to calculate, at least one value is above or below the detection limit. Hours Of Collection 24 HRS 03/08/2025 11:16 PM EDT [facility] Urine, Volume 600 mL 03/08/2025 11:16 PM EDT [facility] Urine Urine specimen obtained by clean catch procedure / Unknown Non-blood Collection / Unknown 03/08/2025 10:07 PM EDT 03/08/2025 10:32 PM EDT us Harish Baer MD LAB URINE ORDERABLES Final Resu lt [facility] [address] [place] [address] * (ABNORMAL) Creatinine, 24 Hour Urine (03/08/2025 10:07 PM EDT) Creatinine, Urine 90 mg/dL 03/08/2025 11:11 PM EDT [facility] Creatinine per day, Urine 540(L) 800 - 2,500 mg/d 03/08/2025 11:11 PM EDT [facility] Hours Of Collection 24 HRS 03/08/2025 11:11 PM EDT [facility] Urine, Volume 600 mL 03/08/2025 11:11 PM EDT [facility] Urine Urine specimen obtained by clean catch procedure / Unknown Non-blood Collection / Unknown 03/08/2025 10:07 PM EDT 03/08/2025 10:32 PM EDT Harish Baer MD LAB URINE ORDERABLES Final Resu lt Performing Organization Address [facility]/ZIP Co de Phone Number [facility] [address] [place] [address] * Total Protein, 24 Hour Urine (03/08/2025 10:07 PM EDT) Protein, Urine 832 mg/dL 03/08/2025 11:35 PM EDT [facility] Total Protein per day 4,992 mg/day 03/08/2025 11:35 PM EDT [facility] Hours Of Collection 24 HRS 03/08/2025 11:35 PM EDT [facility] Urine, Volume 600 mL 03/08/2025 11:35 PM EDT [facility] Urine Urine specimen obtained by clean catch procedure / Unknown Non-blood Collection / Unknown 03/08/2025 10:07 PM EDT 03/08/2025 10:32 PM EDT Narrative [facility] - 03/08/2025 11:35 PM EDT Reference Range <80 mg/day if bed rest <150 mg/day if ambulatory Harish Baer MD LAB URINE ORDERABLES Final Resu lt [facility] [address] [place] [address] * Pulmonary function testing (03/08/2025 10:01 AM EDT) [id number] 2.49 L 03/08/2025 9:58 AM EDT VYAIRE PFT FEV1 PRE 1.73 L 03/08/2025 9:58 AM EDT VYAIRE PFT FEV1/FVC PRE 69.35 % 03/08/2025 9:58 AM EDT VYAIRE PFT VCU41-17% PRE 1.20 L/s 03/08/2025 9:58 AM EDT VYAIRE PFT PEF PRE 3.51 L/s 03/08/2025 9:58 AM EDT VYAIRE PFT Anatomical Region Laterality Modality PFT 03/08/2025 9:38 AM EDT Narrative 03/09/2025 9:42 AM EDT Pulmonary Function Testing Report Owen Salazar underwent pulmonary function testing today at the [facility]. The patient underwent spirometry. All tests were appropriately administered via ATS/ERS criteria. All tests are acceptable and interpretable unless noted otherwise. Spirometry: No obstruction Proportionate reduction in FEV1 and FVC with a normal ratio suggestive of a restrictive process. Recommend lung volume testing if clinically indicated. Trend: There are no prior studies for comparison. us Harish Baer MD PFT ORDERABLES Final Result * (ABNORMAL) D DIMER, QUANTITATIVE (03/08/2025 6:15 AM EDT) D Dimer, Quantitative 0.69(H) <0.50 ug/mL FEU LAB COAGULATION METHOD 03/08/2025 7:14 AM EDT [facility] Blood Venous blood specimen / Unknown Venipuncture / Unknown 03/08/2025 6:15 AM EDT 03/08/2025 6:30 AM EDT Narrative [facility] - 03/08/2025 7:14 AM EDT [...] MD LAB BLOOD ORDERABLES Final Resu lt [facility] [address] [place] [address] * Urea Nitrogen, Random Urine (03/07/2025 9:27 PM EDT) Only the most recent of2 resultswithin the time period is included. Urea Nitrogen, Urine 384 mg/dL 03/07/2025 11:10 PM EDT [facility] Urine Urine specimen obtained by clean catch procedure / Unknown Non-blood Collection / Unknown 03/07/2025 9:27 PM EDT 03/07/2025 9:50 PM EDT Harish Baer MD LAB URINE ORDERABLES Final Resu lt Performing Organization Address [facility]/ZIP Co de Phone Number [facility] [address] [place] [address] * (ABNORMAL) Albumin-creatinine ratio, urine, random (03/07/2025 9:27 PM EDT) Microalbumin, Urine >440.0(H) <1.9 mg/dL 03/07/2025 11:10 PM EDT [facility] Creatinine, Urine 86 mg/dL 03/07/2025 11:10 PM EDT [facility] Albumin/Creati nine Ratio 03/07/2025 11:10 PM EDT [facility] Comment:Unable to calculate, at least one value is above or below the detection limit. Urine Urine specimen obtained by clean catch procedure / Unknown Non-blood Collection / Unknown 03/07/2025 9:27 PM EDT 03/07/2025 9:50 PM EDT Harish Baer MD LAB URINE ORDERABLES Final Resu lt [facility] [address] [place] [address] * Sodium, Random, Urine (03/07/2025 9:27 PM EDT) Only the most recent of2 resultswithin the time period is included. Sodium, Urine 52 mmol/L 03/07/2025 11:10 PM EDT [facility] Urine Urine specimen obtained by clean catch procedure / Unknown Non-blood Collection / Unknown 03/07/2025 9:27 PM EDT 03/07/2025 9:50 PM EDT us Harish Baer MD LAB URINE ORDERABLES Final Resu lt Performing Organization Address [facility]/ZIP Co de Phone Number [facility] [address] [place] [address] * Protein, Random, Urine with Creatinine (03/07/2025 9:27 PM EDT) Only the most recent of2 resultswithin the time period is included. Protein, Urine 914 mg/dL 03/07/2025 11:34 PM EDT [facility] Creatinine, Urine 86 mg/dL 03/07/2025 11:34 PM EDT [facility] Protein/Creatin ine Ratio 10.6 mg/mg Creat 03/07/2025 11:34 PM EDT [facility] Urine Urine specimen obtained by clean catch procedure / Unknown Non-blood Collection / Unknown 03/07/2025 9:27 PM EDT 03/07/2025 9:50 PM EDT us Harish Baer MD LAB URINE ORDERABLES Final Resu lt Performing Organization Address [facility] Co de Phone Number [facility] [address] [place] [address] * Potassium, Random, Urine (03/07/2025 9:27 PM EDT) Potassium, Urine 30 mmol/L 03/07/2025 11:10 PM EDT [facility] Urine Urine specimen obtained by clean catch procedure / Unknown Non-blood Collection / Unknown 03/07/2025 9:27 PM EDT 03/07/2025 9:50 PM EDT us Harish Baer MD LAB URINE ORDERABLES Final Resu lt Performing Organization Address [facility]/ZIP Co de Phone Number [facility] [address] [place] [address] * Osmolality, Urine (03/07/2025 9:27 PM EDT) Osmolality, Urine 402 50 - 1,200 mOsm/kg 03/07/2025 10:26 PM EDT [facility] Urine Urine specimen obtained by clean catch procedure / Unknown Non-blood Collection / Unknown 03/07/2025 9:27 PM EDT 03/07/2025 9:50 PM EDT Harish Baer MD LAB URINE ORDERABLES Final Resu lt Performing Organization Address [facility]/ZIP Co de Phone Number [facility] [address] [place] [address] * Chloride, Random Urine (03/07/2025 9:27 PM EDT) Chloride, Urine 46 mmol/L 11:10 PM EDT [facility] Urine Urine specimen obtained by clean catch procedure / Unknown Non-blood Collection / Unknown 03/07/2025 9:27 PM EDT 03/07/2025 9:50 PM EDT Harish Baer MD LAB URINE ORDERABLES Final Resu lt Performing Organization Address [facility] Co de Phone Number [facility] [address] [place] [address] * US Renal Complete (03/07/2025 7:11 PM [...] on 03/07/2025 7:19 PM Harish Baer MD [facility] [place] PROCEDURES Final Result * ECHO, ADULT TRANSTHORACIC COMPLETE (03/07/2025 1:13 PM EDT) Height 182 REILLY ISCV Weight 92.5 REILLY [...] Ao Diam 36 mm REILLY ISCV PA FL(ACCEL) 47.9 mmHg REILLY ISCV LV mean PG [...] is no recent study available for direct [id number]-ty-zlyc comparison. Left Ventricle The left ventricle is [...] is no recent study available for direct [id number] comparison. us Floyd Quezada APRN CV ECHO PROCEDURES Final Resu lt * (ABNORMAL) Blood gas panel, venous (03/07/2025 4:43 AM EDT) pH, Venous 7.39 7.32 - 7.43 LAB HEMATOLOGY METHOD 03/07/2025 4:52 AM EDT [facility] pCO2, Venous 30(L) 40 - 55 mmHg LAB HEMATOLOGY METHOD 03/07/2025 4:52 AM EDT [facility] pO2, Venous 59(H) 25 - 40 mmHg LAB HEMATOLOGY METHOD 03/07/2025 4:52 AM EDT [facility] SO2, Measured, Venous 91(H) 65 - 80 % LAB HEMATOLOGY METHOD 03/07/2025 4:52 AM EDT [facility] Base Excess, Venous -6.1(L) -2.0 - 3.0 mmol/L LAB HEMATOLOGY METHOD 03/07/2025 4:52 AM EDT [facility] Bicarbonate, Calculated, Venous 18(L) 22 - 26 mmol/L LAB HEMATOLOGY METHOD 03/07/2025 4:52 AM EDT [facility] Hematocrit, Whole Blood 29.9(L) 40.0 - 51.0 % LAB HEMATOLOGY METHOD 03/07/2025 4:52 AM EDT [facility] Sodium, Whole Blood 136 136 - 145 mmol/L LAB HEMATOLOGY METHOD 03/07/2025 4:52 AM EDT [facility] Potassium, Whole Blood 4.0 3.6 - 4.9 mmol/L LAB HEMATOLOGY METHOD 03/07/2025 4:52 AM EDT [facility] Chloride, Whole Blood 111(H) 97 - 107 mmol/L LAB HEMATOLOGY METHOD 03/07/2025 4:52 AM EDT [facility] Glucose, Whole Blood 156(H) 74 - 99 mg/dL LAB HEMATOLOGY METHOD 03/07/2025 4:52 AM EDT [facility] Lactate, Venous, Whole Blood 0.9 0.5 - 2.2 mmol/L LAB HEMATOLOGY METHOD 03/07/2025 4:52 AM EDT [facility] Ionized Calcium, Whole Blood 4.4(L) 4.6 - 5.1 mg/dL LAB HEMATOLOGY METHOD 03/07/2025 4:52 AM EDT [facility] Blood Venous blood specimen / Unknown Venipuncture / Unknown 03/07/2025 4:43 AM EDT 03/07/2025 4:50 AM EDT us Floyd Quezada [employer]ERCING [employer] OPERATOR LAB BLOOD ORDERABLES Final Re sult [facility] [address] [place] [address] * Ferritin, Serum (03/07/2025 4:43 AM EDT) Ferritin, Serum 132 20 - 400 ng/mL 03/07/2025 5:41 AM EDT [facility] Blood Venous blood specimen / Unknown Venipuncture / Unknown 03/07/2025 4:43 AM EDT 03/07/2025 4:56 AM EDT us Floyd Quezada [employer]ERCING M[employer] OPERATOR LAB BLOOD ORDERABLES Final Re sult [facility] [address] [place] [address] * (ABNORMAL) Renal Function Panel, Plasma (03/07/2025 4:43 AM EDT) Glucose, Plasma 170(H) 74 - 99 mg/dL 03/07/2025 5:26 AM EDT [facility] BUN, Plasma 37(H) 8 - 23 mg/dL 03/07/2025 5:26 AM EDT [facility] Creatinine, Plasma 3.38(H) 0.70 - 1.20 mg/dL 03/07/2025 5:26 AM EDT [facility] BUN/Creatinine Ratio 11 03/07/2025 5:26 AM EDT [facility] Sodium, Plasma 140 136 - 145 mmol/L 03/07/2025 5:26 AM EDT [facility] Potassium, Plasma 4.3 3.6 - 4.9 mmol/L 03/07/2025 5:26 AM EDT [facility] Chloride, Plasma 111(H) 97 - 107 mmol/L 03/07/2025 5:26 AM EDT [facility] CO2, Plasma 16(L) 22 - 29 mmol/L 03/07/2025 5:26 AM EDT [facility] Anion Gap 13 6 - 16 mmol/L 03/07/2025 5:26 AM EDT [facility] Total Calcium, Plasma 7.6(L) 8.9 - 10.2 mg/dL 03/07/2025 5:26 AM EDT [facility] Phosphorus, Plasma 3.3 2.5 - 4.5 mg/dL 03/07/2025 5:26 AM EDT [facility] Albumin, Plasma 2.0(L) 3.5 - 5.2 g/dL 03/07/2025 5:26 AM EDT [facility] eGFRcr 17.3 mL/min/1.7 3m*2 03/07/2025 5:26 AM EDT [facility] Comment:Reported eGFRcr in m L/min/1.73m2 is based the CKD-EPI 2020 equation that does not use a race coefficient. Blood Venous blood specimen / Unknown Venipuncture / Unknown 03/07/2025 4:43 AM EDT 03/07/2025 4:56 AM EDT Floyd Quezada APRN LAB BLOOD ORDERABLES Final Re sult [facility] [address] [place] [address] * ECG Adult (03/07/2025 3:48 AM EDT) Only the most recent of3 resultswithin the time period is included. EKG DIAGNOSIS CLASS Abnormal MUSE ECG Ventricular Rate 98 BPM MUSE ECG Atrial Rate 98 BPM MUSE ECG FL Interval 180 ms MUSE ECG QRSD Interval 84 ms MUSE ECG QT Interval 340 ms MUSE ECG QTC Interval 434 ms MUSE ECG P [place] 56 degrees MUSE ECG R [place] -43 degrees MUSE ECG T Wave [place] 63 degrees MUSE ECG Diagnosis Sinus rhythm with premature supraventricular complexes MUSE ECG Diagnosis Left axis deviation MUSE ECG Diagnosis Poor R-wave progression MUSE ECG Diagnosis Abnormal ECG MUSE ECG Diagnosis MUSE ECG Diagnosis Confirmed by Yoan Connors ([id number]) on 03/07/2025 5:41:06 AM MUSE ECG 03/07/2025 3:48 AM EDT 03/07/2025 5:41 AM EDT Floyd Quezada APRN ECG ORDERABLES Final Result MUSE ECG * Urinalysis Microscopic Examination (03/07/2025 2:00 AM EDT) Urine Urine specimen obtained by clean catch procedure / Unknown Non-blood Collection / Unknown 03/07/2025 2:00 AM EDT 03/07/2025 2:06 AM EDT us Floyd Quezada APRN LAB URINE ORDERABLES Final Re sult Performing Organization Address [facility]/ZIP Co de Phone Number [facility] [address] [place] [address] * Drug Abuse Screen, Urine (03/07/2025 2:00 AM EDT) Amphetamine Screen Urine Negative Cutoff: 500 ng/mL 03/07/2025 2:48 AM EDT [facility] Benzodiazepines Screen Urine Negative Cutoff: 200 ng/mL 03/07/2025 2:48 AM EDT [facility] Cannabinoid Screen Urine Negative Cutoff: 50 ng/mL 03/07/2025 2:48 AM EDT [facility] Cocaine Screen Urine Negative Cutoff: 300 ng/mL 03/07/2025 2:48 AM EDT [facility] Barbiturate Screen Urine Negative Cutoff: 200 ng/mL 03/07/2025 2:48 AM EDT [facility] Opiate Screen Urine Negative Cutoff: 300 ng/mL 03/07/2025 2:48 AM EDT [facility] Methadone Screen Urine Negative Cutoff: 300 ng/mL 03/07/2025 2:48 AM EDT [facility] Buprenorphine Screen Urine Negative Cutoff: 10 ng/mL 03/07/2025 2:48 AM EDT [facility] Fentanyl Screen Urine Negative Cutoff: 1 ng/mL 03/07/2025 2:48 AM EDT [facility] Oxycodone Screen Urine Negative Cutoff: 100 ng/mL 03/07/2025 2:48 AM EDT [facility] Urine Urine specimen obtained by clean catch procedure / Unknown Non-blood Collection / Unknown 03/07/2025 2:00 AM EDT 03/07/2025 2:16 AM EDT us Floyd Quezada APRN LAB URINE ORDERABLES Final Re sult Performing Organization Address [facility]/ZIP Co de Phone Number [facility] [address] [place] [address] * (ABNORMAL) Urinalysis with reflex microscopic (Culture NOT Included) (03/07/2025 2:00 AM EDT) Color, Urine Yellow LAB URINALYSIS - AUTOMATED METHOD 03/07/2025 2:31 AM EDT [facility] Clarity, Urine Clear LAB URINALYSIS - AUTOMATED METHOD 03/07/2025 2:31 AM T [facility] Spec Raymond, Urine 1.023 1.005 - 1.030 LAB URINALYSIS - AUTOMATED METHOD 03/07/2025 2:31 AM T [facility] pH, Urine 6.5 5.0 - 8.0 LAB URINALYSIS - AUTOMATED METHOD 03/07/2025 2:31 AM T [facility] Protein, Urine >=300(A) Negative mg/dL LAB URINALYSIS - AUTOMATED METHOD 03/07/2025 2:31 AM T [facility] Glucose, Urine >=1000(A) Negative mg/dL LAB URINALYSIS - AUTOMATED METHOD 03/07/2025 2:31 AM T [facility] Ketones, Urine Negative Negative mg/dL LAB URINALYSIS - AUTOMATED METHOD 03/07/2025 2:31 AM T [facility] Blood, Urine Small(A) Negative LAB URINALYSIS - AUTOMATED METHOD 03/07/2025 2:31 AM T [facility] Bilirubin, Urine Negative Negative LAB URINALYSIS - AUTOMATED METHOD 03/07/2025 2:31 AM T [facility] Urobilinogen, Urine 0.2 0.2 to 1.0 mg/dL LAB URINALYSIS - AUTOMATED METHOD 03/07/2025 2:31 AM T [facility] Leukocytes, Urine Negative Negative LAB URINALYSIS - AUTOMATED METHOD 03/07/2025 2:31 AM T [facility] Nitrite, Urine Negative Negative LAB URINALYSIS - AUTOMATED METHOD 03/07/2025 2:31 AM T [facility] RBC, Urine 3 0 to 3 /HPF LAB URINALYSIS - AUTOMATED METHOD 03/07/2025 2:31 AM T [facility] Comment:This result was prev iously suppressed from the chart. WBC, Urine 0 - 5 0 to 5 /HPF LAB URINALYSIS - AUTOMATED METHOD 03/07/2025 2:31 AM EDT [facility] Comment:This result was prev iously suppressed from the chart. Squamous Epithelial Cells 0 - 2 0 to 5 /HPF LAB URINALYSIS - AUTOMATED METHOD 03/07/2025 2:31 AM EDT [facility] Comment:This result was prev iously suppressed from the chart. Hyaline Casts 0 - 2 0 to 5 /LPF LAB URINALYSIS - AUTOMATED METHOD 03/07/2025 2:31 AM EDT [facility] Comment:This result was prev iously suppressed from the chart. Bacteria, Urine Negative Negative LAB URINALYSIS - AUTOMATED METHOD 03/07/2025 2:31 AM EDT [facility] Comment:This result was prev iously suppressed from the chart. Urine Urine specimen obtained by clean catch procedure / Unknown Non-blood Collection / Unknown 03/07/2025 2:00 AM EDT 03/07/2025 2:06 AM EDT Floyd Quezada APRN LAB URINE ORDERABLES Final Re sult [facility] [address] [place] [address] * SARS CoV-2/COVID-19 by PCR - Rapid (03/07/2025 12:12 AM EDT) SARS CoV-2/COVID-1 9 RNA PCR Result Not Detected Not Detected 03/07/2025 1:54 AM EDT [facility] Swab Nasopharyngeal structure / Unknown Non-blood Collection / Unknown 03/07/2025 12:12 AM EDT 03/07/2025 1:00 AM EDT Narrative [facility] - 03/07/2025 1:54 AM EDT [...] clinical signs and symptoms consistent with COVID-19. Juan Chapman MD LAB MICROBIOLOGY - GENERAL ORDERABLES Final Result Performing Organization Address [facility]/ZIP Co de Phone Number [facility] [address] [place] [address] * Nasopharyngeal Respiratory Panel (03/07/2025 12:12 AM EDT) Nasopharyngeal Respiratory PCR Interpretation Not Detected for all analytes Not Detected for all analytes 03/07/2025 3:04 AM EDT [facility] Swab Nasopharyngeal structure / Unknown Non-blood Collection / Unknown 03/07/2025 12:12 AM EDT 03/07/2025 1:00 AM EDT Narrative [facility] - 03/07/2025 3:04 AM EDT [...] Respiratory PCR Panel is performed using the epacubelex instrument. This test is FDA approved for use with Nasopharyngeal swabs only. This test is used for clinical purposes. It should not be regarded as investigational or for research. The [facility] is certified under the Clinical Laboratory Improvement Amendments of 1988 (CLIA-88) as qualified to perform high complexity clinical laboratory testing. Juan Chapman MD LAB MICROBIOLOGY - GENERAL ORDERABLES Final Result Performing Organization Address [facility]/ZIP Co de Phone Number [facility] [address] [place] [address] * (ABNORMAL) Troponin T, High Sensitivity, 2 Hour, Plasma (03/06/2025 10:05 PM EDT) Troponin T, High Sensitivity, 2 Hour 70(H) <19 ng/L 03/06/2025 10:31 PM EDT [facility] Troponin Delta 6 <10 ng/L 03/06/2025 10:31 PM EDT [facility] Troponin Delta Interpretation Not Significant 03/06/2025 10:31 PM EDT [facility] Comment:Not Significant. No acute change in troponin observed between the baseline and 2 hour samples. Blood Venous blood specimen / Unknown Venipuncture / Unknown 03/06/2025 10:05 PM EDT 03/06/2025 10:11 PM EDT us Nabor Tam MD LAB BLOOD ORDERABLES Final Resul t Performing Organization Address [facility] [place] [address] * (ABNORMAL) Anti Xa Level Unfractionated Heparin (03/06/2025 8:26 PM EDT) Anti Xa Level Unfractionated Heparin >1.10(HH) <1.00 IU/mL 03/06/2025 8:41 PM EDT [facility] Blood Venous blood specimen / Unknown Venipuncture / Unknown 03/06/2025 8:26 PM EDT 03/06/2025 8:27 PM EDT Narrative [facility] - 03/06/2025 8:41 PM EDT Therapeutic Range: UFH Full Dose and ACS/TN protocols*: 0.30 - 0.70 IU/mL UFH Low Dose protocol*: 0.25 - 0.50 IU/mL UFH prophylaxis: Not established us Nabor Tam MD LAB BLOOD ORDERABLES Final Resul t Performing Organization Address [facility] Co de Phone Number [facility] [address] [place] [address] * XR Chest 1 View (03/06/2025 8:04 [...] Brennan Palacios MD on 03/06/2025 8:53 PM us Nabor Tam MD IMG XR PROCEDURES Final Result * (ABNORMAL) Troponin now and 120 min (03/06/2025 7:57 PM EDT) Troponin T, High Sensitivity, 0 Hour 76(H) <19 ng/L 03/06/2025 8:35 PM EDT [facility] Blood Venous blood specimen / Unknown Venipuncture / Unknown 03/06/2025 7:57 PM EDT 03/06/2025 8:02 PM EDT us Nabor Tam MD LAB BLOOD ORDERABLES Final Resul t Performing Organization Address [facility] Co de Phone Number [facility] [address] [place] [address] * Lactic acid, venous (03/06/2025 7:57 PM EDT) Lactate, Venous, Whole Blood 2.2 0.5 - 2.2 mmol/L LAB HEMATOLOGY METHOD 03/06/2025 8:04 PM EDT [facility] Blood Venous blood specimen / Unknown Venipuncture / Unknown 03/06/2025 7:57 PM EDT 03/06/2025 8:03 PM EDT us Nabor Tma MD LAB BLOOD ORDERABLES Final Resul t Performing Organization Address [facility] Co de Phone Number [facility] [address] [place] [address] * (ABNORMAL) BNP (03/06/2025 7:57 PM EDT) N-Terminal, PROBNP, Plasma 2,403(H) 0 - 1,799 pg/mL 03/06/2025 8:38 PM EDT [facility] Blood Venous blood specimen / Unknown Venipuncture / Unknown 03/06/2025 7:57 PM EDT 03/06/2025 8:02 PM EDT Result Tan Tam MD LAB BLOOD ORDERABLES Final Resul t Performing Organization Address [facility] Co de Phone Number [facility] [address] [place] [address] * (ABNORMAL) CBC w/diff (03/06/2025 7:57 PM EDT) WBC Count 6.29 3.70 - 10.30 10*3/uL LAB HEMATOLOGY METHOD 03/06/2025 8:05 PM EDT [facility] RBC Count 3.78(L) 4.60 - 6.10 10*6/uL LAB HEMATOLOGY METHOD 03/06/2025 8:05 PM EDT [facility] HGB 11.3(L) 13.7 - 17.5 g/dL LAB HEMATOLOGY METHOD 03/06/2025 8:05 PM EDT [facility] HCT 34.7(L) 40.0 - 51.0 % LAB HEMATOLOGY METHOD 03/06/2025 8:05 PM EDT [facility] Platelet Count 198 155 - 369 10*3/uL LAB HEMATOLOGY METHOD 03/06/2025 8:05 PM EDT [facility] MCV 92 79 - 98 fL LAB HEMATOLOGY METHOD 03/06/2025 8:05 PM EDT [facility] MCH 29.9 26.0 - 32.0 pg LAB HEMATOLOGY METHOD 03/06/2025 8:05 PM EDT [facility] MCHC 32.6 30.7 - 35.5 g/dL LAB HEMATOLOGY METHOD 03/06/2025 8:05 PM EDT [facility] RDW 13.2 11.5 - 14.5 % LAB HEMATOLOGY METHOD 03/06/2025 8:05 PM EDT [facility] MPV 10.0 8.8 - 12.5 fL LAB HEMATOLOGY METHOD 03/06/2025 8:05 PM EDT [facility] nRBC 0.0 <=0.0 per 100 WBCs LAB HEMATOLOGY METHOD 03/06/2025 8:05 PM EDT [facility] Differential Type Automated LAB HEMATOLOGY METHOD 03/06/2025 8:05 PM EDT [facility] Neutrophils % 67 % LAB HEMATOLOGY METHOD 03/06/2025 8:05 PM EDT [facility] Lymphocytes % 18 % LAB HEMATOLOGY METHOD 03/06/2025 8:05 PM EDT [facility] Monocytes % 12 % LAB HEMATOLOGY METHOD 03/06/2025 8:05 PM EDT [facility] Eosinophils % 1 % LAB HEMATOLOGY METHOD 03/06/2025 8:05 PM EDT [facility] Basophils % 1 % LAB HEMATOLOGY METHOD 03/06/2025 8:05 PM EDT [facility] Immature Granulocytes % 1 % LAB HEMATOLOGY METHOD 03/06/2025 8:05 PM EDT [facility] Neutrophils Absolute 4.23 1.60 - 6.10 10*3/uL LAB HEMATOLOGY METHOD 03/06/2025 8:05 PM EDT [facility] Lymphocytes Absolute 1.13(L) 1.20 - 3.90 10*3/uL LAB HEMATOLOGY METHOD 03/06/2025 8:05 PM EDT [facility] Monocytes Absolute 0.78 0.30 - 0.90 10*3/uL LAB HEMATOLOGY METHOD 03/06/2025 8:05 PM EDT [facility] Eosinophils Absolute 0.07 0.00 - 0.50 10*3/uL LAB HEMATOLOGY METHOD 03/06/2025 8:05 PM EDT [facility] Basophils Absolute 0.03 0.00 - 0.10 10*3/uL LAB HEMATOLOGY METHOD 03/06/2025 8:05 PM EDT [facility] Immature Granulocytes Absolute 0.05 0.00 - 0.06 10*3/uL LAB HEMATOLOGY METHOD 03/06/2025 8:05 PM EDT [facility] Blood Venous blood specimen / Unknown Venipuncture / Unknown 03/06/2025 7:57 PM EDT 03/06/2025 8:02 PM EDT Narrative [facility] - 03/06/2025 8:05 PM EDT Therapeutic decision making should be based on absolute values, rather than percentages. us aNbor Tam MD LAB BLOOD ORDERABLES Final Resul t [facility] [address] [place] [address] * Thyroid Stimulating Hormone, Plasma (03/06/2025 7:57 PM EDT) Thyroid Stimulating Hormone, Plasma 0.96 0.40 - 4.20 uIU/mL 03/06/2025 8:38 PM EDT [facility] Blood Venous blood specimen / Unknown Venipuncture / Unknown 03/06/2025 7:57 PM EDT 03/06/2025 8:02 PM EDT us Nabor Tam MD LAB BLOOD ORDERABLES Final Resul t Performing Organization Address [facility]/ZIP Co de Phone Number [facility] [address] [place] [address] * Free T4, Plasma (03/06/2025 7:57 PM EDT) Free T4, Plasma 1.2 0.8 - 1.7 ng/dL 03/06/2025 8:35 PM EDT [facility] Blood Venous blood specimen / Unknown Venipuncture / Unknown 03/06/2025 7:57 PM EDT 03/06/2025 8:02 PM EDT us Nabor Tam MD LAB BLOOD ORDERABLES Final Resul t Performing Organization Address [facility] Co de Phone Number [facility] [address] [place] [address] * Lipase (03/06/2025 7:57 PM EDT) Lipase, Plasma 28 19 - 63 U/L 03/06/2025 8:38 PM EDT [facility] Blood Venous blood specimen / Unknown Venipuncture / Unknown 03/06/2025 7:57 PM EDT 03/06/2025 8:02 PM EDT us Nbaor Tam MD LAB BLOOD ORDERABLES Final Resul t Performing Organization Address [facility] Co de Phone Number [facility] [address] [place] [address] * (ABNORMAL) Hemoglobin A1c (03/06/2025 7:57 PM EDT) Hemoglobin A1c 9.3(H) <5.7 % 03/07/2025 12:02 PM EDT [facility] Blood Venous blood specimen / Unknown Venipuncture / Unknown 03/06/2025 7:57 PM EDT 03/06/2025 8:02 PM EDT Narrative [facility] - 03/07/2025 12:02 PM EDT [facility] Interpretive Data: Diagnosis of Diabetes: Diabetic > or = 6.5% Pre-diabetic 5.7 to 6.4% Non-diabetic < or = 5.6% Glycemic Targets for Type I and Type II Diabetics: Non- Adults <7.0% Adults <6.0% Children and Adolescents <7.5% Source: [place] [employer]. Standards of medical care in diabetes,2017. Diabetes Care.2017:40 (suppl 1):S1-S135. us Floyd Quezada PIERCING MILL OPERATOR LAB BLOOD ORDERABLES Final Re sult [facility] [address] [place] [address] * (ABNORMAL) POCT arterial blood gas gem (03/06/2025 7:48 PM EDT) pH, Arterial 7.31 7.31 - 7.42 03/06/2025 7:50 PM EDT [facility] pCO2, Arterial 31(L) 32 - 45 mm Hg 03/06/2025 7:50 PM EDT [facility] pO2, Arterial 30(LL) >60 mm Hg 03/06/2025 7:50 PM EDT [facility] SO2, Arterial 55(L) 94 - 98 % 03/06/2025 7:50 PM EDT [facility] FIO2 100.0 % 03/06/2025 7:50 PM EDT [facility] Base Excess, Arterial -9.5(L) -2 - 3 mmol/L 03/06/2025 7:50 PM EDT [facility] HCO3, Arterial 15.6(L) 22 - 26 mmol/L 03/06/2025 7:50 PM EDT [facility] Total Hemoglobin, Arterial, Whole Blood 12.9(L) 13.7 - 17.5 g/dL 03/06/2025 7:50 PM EDT [facility] Hematocrit, Arterial 39.0(L) 40 - 51.0 % 03/06/2025 7:50 PM EDT [facility] Sodium, Arterial 134(L) 136 - 145 mmol/L 03/06/2025 7:50 PM EDT [facility] Potassium, Arterial 4.3 3.6 - 4.9 mmol/L 03/06/2025 7:50 PM EDT [facility] Comment:Hemolyzed, result ma y be falsely increased. Chloride, Whole Blood 107 97 - 107 mmol/L 03/06/2025 7:50 PM EDT [facility] Glucose, Arterial 178(H) 74 - 99 mg/dL 03/06/2025 7:50 PM EDT [facility] Ionized Calcium, Arterial 4.5(L) 4.6 - 5.1 mg/dL 03/06/2025 7:50 PM EDT [facility] Lactate, Arterial 2.3(H) 0.5 - 1.6 mmol/L 03/06/2025 7:50 PM EDT [facility] Body Temperature 37.0 Celsius 03/06/2025 7:50 PM EDT [facility] pH, Temp Corrected, Arterial 7.31 7.31 - 7.42 03/06/2025 7:50 PM EDT [facility] pCO2, Temp Corrected, Arterial 31(L) 32 - 45 mm Hg 03/06/2025 7:50 PM EDT [facility] pO2, Temp Corrected, Arterial 30(LL) >60 mm Hg 03/06/2025 7:50 PM EDT [facility] Service Secretary ID Robina Álvarez 03/06/2025 7:50 PM EDT [facility] Acknowledged, Notified By RN 64 03/06/2025 7:50 PM EDT [facility] Critical Notify Time 194803/06/2025 7:50 PM EDT [facility] Critical Readback Y 03/06/2025 7:50 PM EDT [facility] Blood, Arterial Whole blood specimen / Unknown 03/06/2025 7:48 PM EDT 03/06/2025 7:50 PM EDT us Nabor Tam MD LAB POINT OF CARE TE ST DOCKED DEVICE UNSOLICITED RESULTS Final Result [facility] [address] [place] [address] * Light Green Top (03/06/2025 7:47 PM EDT) Extra Hold for add-ons 03/06/2025 11:01 PM EDT [facility] Comment:Auto resulted. Blood Venous blood specimen / Unknown 03/06/2025 7:47 PM EDT 03/06/2025 8:02 PM EDT us Nabor Tam MD LAB BLOOD ORDERABLES Final Resul t [facility] [address] [place] [address] * FL CRITICAL CARE, E/M 30-74 MINUTES (03/06/2025 7:17 PM EDT) Narrative Nabor Tam MD - 03/06/2025 7:17 PM EDT aNbor Tam MD 03/09/2025 11:05 AM Critical Care Performed by: Nabor Tam MD Authorized by: Juan Chapman MD Critical care provider statement: Critical [...] the findings and plan as documented. us Juan Chapman MD IN CLINIC/BEDSIDE ORDERABLE S Final Result from Last 3 Months Insurance MEDICARE Advance Directives * Full Code (Latest Code Status on File) Date Activated Date Inactivated Comments 03/07/2025 1:19 AM 03/10/2025 7:12 PM Question Answer Comments I have reviewed the capacity from the link above and, if needed, have updated to appropriate status: Yes Care Teams Paving Crew Foreman Relationship Specialty Start Date End Date Pcp, No [address] [place] [address] PCP - General Family Medicine 03/06/25
--- OUTSIDE RECORDS SUMMARY | 2025-04-28 12:54 | XMS_ITS | Encounter Summary ---
Author Organization Healthcare Address [address] [id number] Care Team Providers Care Anthropologist Physical Name Role Phone Pcp, No Primary Care Provider Unavailabl e Encounter Details Date Type Department Care Team (Latest Contact Info) Description 03/06/2025 Travel Social History Tobacco Use Types Packs/Day Years Used Date Smoking Tobacco: Never Assessed Humiliation, Afraid, Rape, and Kick questionnair e [...] any time in the past 12 m [facility], were you homeless or living in a [place] (including now)? No 03/07/2025 [facility] Utilities Answer Date Recorded In the past [...] Date of Assessment Author No Risk Indicated 03/06/2025 7:49 PM EDT Yas Casiano RN * Question Answer Date of Assessment Author 1. Wish to be (Past 1 Month) No 025 7:49 PM EDT Yas Casiano RN 2. Non-Specific Active Suici levi Thoughts (Past 1 Month) No 03/06/2025 7:49 PM EDT Marina Casiano RN 6. Suicidal Behavior (Lifetime) No 7:49 PM EDT Yas Casiano RN documented as of this encounter Plan of Treatment Not on file documented as of this encounter Visit Diagnoses Not on filedocumented in this encounter Additional Health Concerns Infection Onset Date Last Indicated Resolved Time COVID-19 Rule-Out 03/06/2025 03/06/2025 03/07/2025 1:54 AM EDT Respiratory Rule-Out 03/06/2025 03/07/2025 025 3:04 AM EDT Assessment Noted Time A Body Mass Index follow-up plan has been documented for the patient 03/10/2025 3:20 PM EDT documented as of this encounter Care Teams Anthropologist Physical Relationship Specialty Start Date End Date Pcp, No [address] [place] [address] PCP - General Family Medicine 03/06/25 documented as of this encounter
--- OUTSIDE RECORDS SUMMARY | 2025-04-28 12:54 | XMS_ITS | Encounter Summary ---
Author Organization Healthcare Address [address] [id number] Care Team Providers Care Lean Process Deployment Consultant Name Role Phone Pcp, No Primary Care Provider Unavailabl e Encounter Details Date Type Department Care Team (Latest Contact Info) Description 03/08/2025 Travel Social History Tobacco Use Types Packs/Day [...] any time in the past 12 m [facility], were you homeless or living in a [place] (including now)? No 03/07/2025 [facility] Utilities Answer Date Recorded In the past [...] Date of Assessment Author No Risk Indicated 03/08/2025 7:30 PM EDT Alondra Quiros RN * Question Answer Date of Assessment Author 1. Wish to be (Past 1 Month) No 025 7:30 PM EDT Alondra Quiros, JASS 2. Non-Specific Active Suici levi Thoughts (Past 1 Month) No 03/08/2025 7:30 PM EDT Alondra Quiros, JASS 6. [...] documented as of this encounter Care Teams Lean Process Deployment Consultant Relationship Specialty Start Date End Date Pcp, No [address] [place] [address] PCP - General Family Medicine 03/06/25 documented as of this encounter
--- OUTSIDE RECORDS SUMMARY | 2025-04-28 12:54 | XMS_ITS | Encounter Summary ---
Author Organization Healthcare Address [address] [id number] Care Team Providers Care Call Center Nurse Name Role Phone Pcp, No Primary Care Provider Unavailabl e Encounter Details Date Type Department Care Team (Latest Contact Info) Description 03/07/2025 Travel Social History Tobacco Use Types Packs/Day [...] any time in the past 12 m [facility], were you homeless or living in a [facility] (including now)? No 03/07/2025 [facility] Utilities Answer Date Recorded In [...] Date of Assessment Author No Risk Indicated 03/07/2025 9:17 PM EDT Deyanira Thomas RN * Question Answer Date of Assessment Author 1. Wish to be (Past 1 Month) No 025 9:17 PM EDT Jorge Thomas RN 2. Non-Specific Active Suici levi Thoughts (Past 1 Month) No 03/07/2025 9:17 PM EDT Jorge Thomas RN 6. Suicidal Behavior (Lifetime) No 9:17 PM EDT Jorge Thomas RN documented as of this encounter Plan [...] documented as of this encounter Care Teams Call Center Nurse Relationship Specialty Start Date End Date Pcp, No [address] [place] [address] PCP - General Family Medicine 03/06/25 documented as of this encounter
--- OUTSIDE RECORDS SUMMARY | 2025-04-28 12:55 | XMS_ITS | Encounter Summary ---
Author Organization Healthcare Address [address] [place] [address] Care Team Providers Care Eating Disorder Specialist Name Role Phone Pcp, No Primary Care Provider Unavailabl e Encounter Details Date Type Department Care Team (Late st Contact Info) Description 04/01/2025 Telephone [facility] [address] [place] [address] Sybil Segura RN [facility] None Social History Tobacco Use Types Packs/Day Years [...] time in the past 12 m [facility], were you homeless or living in a senior living (including now)? No 03/07/2025 [facility] Utilities Answer Date Recorded In the past 12 months has th e electric, gas, oil, or water company threatened to shut off services in your home? No 03/07/2025 Sex and Gender Information Value Date Recorded Sex Assigned at Not on file Legal Sex Male 8:26 PM EDT Gender Identity Not on file Sexual Orientation Not on file documented as of this encounter Plan of Treatment Not on file documented as of this encounter Visit Diagnoses Not on filedocumented in this encounter Additional Health Concerns Assessment Noted Time A Body Mass Index follow-up plan has been documented for the patient 03/10/2025 3:20 PM EDT documented as of this encounter Care Teams Eating Disorder Specialist Relationship Specialty Start Date End Date Pcp, No [address] [place] [address] PCP - General Family Medicine 03/06/25 documented as of this encounter
--- OUTSIDE RECORDS SUMMARY | 2025-04-28 12:55 | XMS_ITS | Continuity of Care Document ---
Author Organization [facility] hospital Address [address] [place] [address] Assessment No assessment recorded. Plan of Treatment [...] None recorded. Imaging None recorded. Medication Orders prednison e 20 mg tablet 2024 025 On License Of [facility], [address] [place] [address] , [place], [place], [id number], 03/24/2025 10:56:05 loratadin e 10 mg capsule 2024 [address] [place], [place], [id number], 03/24/2025 11:07:35 Patient TargetsNo targets recorded. Patient Instructions Encounter Date Encounter Id Patient Instructions Last Modified By Organization Details Last Modified Time 01/27/2025 [id number] When You Want to Lose Weight: Care Instructions [email or web address] Not available 01/28/2025 08:40:45 Reason for Referral None Reported. Results Created Date Observation Date Name Description Value Unit Range Abnormal Flag Note LastModifiedBy Organization Detail LastModifiedTime 12/30/19 25 12/29/2024 HbA1c (hemo globi n A1c), blood HbA1C 6.5 % Not Available [address] , [place], [address], 12/27/2024 14:25:45 12/30/19 25 12/29/2024 gluco se, finge rstic k, blood Blood Glucose: mg/dl 224 Not Available [address] , [place], [address], 12/27/2024 14:25:46 01/25/20 25 01/24/2025 CBC WITH DIFFE RENTI AL/PL ATELE T WBC 7.2 x10e3 /uL 3.4-10 .8 normal Not Available [facility] ([facility]) [address] [place], [address], 01/25/2025 11:12:07 01/25/20 25 01/24/2025 CBC WITH DIFFE RENTI AL/PL ATELE T RBC 3.53 x10e6 /uL 4.14-5 .80 below low normal Not Available [facility] ([facility]) [address] [place], [address], 01/25/2025 11:12:07 01/25/20 25 01/24/2025 CBC WITH DIFFE RENTI AL/PL ATELE T hemoglobin 10.8 g/dL 13.0-1 7.7 below low normal Not Available [facility] ([facility]) [address] [place], [address], 01/25/2025 11:12:07 01/25/20 25 01/24/2025 CBC WITH DIFFE RENTI AL/PL ATELE T hematocrit 34.5 % 37.5-5 1.0 below low normal Not Available [facility] ([facility]) [address] [place], [address], 01/25/2025 11:12:07 01/25/20 25 01/24/2025 CBC WITH DIFFE RENTI AL/PL ATELE T MCV 98 fL 79-97 above high normal Not Available [facility] ([facility]) [address] [facility], [place], [address], 01/25/2025 11:12:07 01/25/20 25 01/24/2025 CBC WITH DIFFE RENTI AL/PL ATELE T MCH 30.6 pg 26.6-3 3.0 normal Not Available [facility] ([facility]) [address] [facility], [place], [address], 01/25/2025 11:12:07 01/25/20 25 01/24/2025 CBC WITH DIFFE RENTI AL/PL ATELE T MCHC 31.3 g/dL 31.5-3 5.7 below low normal Not Available [facility] ([facility]) [address] [place], [address], 01/25/2025 11:12:07 01/25/20 25 01/24/2025 CBC WITH DIFFE RENTI AL/PL ATELE T RDW 12.6 % 11.6-1 5.4 Not Available [facility] ([facility]) [address] [facility], [place], [address], 01/25/2025 11:12:07 01/25/20 25 01/24/2025 CBC WITH DIFFE RENTI AL/PL ATELE T platelets 237 x10e3 /uL 150-45 0 normal Not Available [facility] ([facility]) [address] [facility], [place], [address], 01/25/2025 11:12:07 01/25/20 25 01/24/2025 CBC WITH DIFFE RENTI AL/PL ATELE T neutrophils 57 % not estab. normal Not Available [facility] ([facility]) [address] [facility], [place], [address], 01/25/2025 11:12:07 01/25/20 25 01/24/2025 CBC WITH DIFFE RENTI AL/PL ATELE T lymphs 24 % not estab. normal Not Available [facility] ([facility]) [address] [place], [address], 01/25/2025 11:12:07 01/25/20 25 01/24/2025 CBC WITH DIFFE RENTI AL/PL ATELE T monocytes 11 % not estab. normal Not Available [facility] ([facility]) [address] [facility], [place], [address], 01/25/2025 11:12:07 01/25/20 25 01/24/2025 CBC WITH DIFFE RENTI AL/PL ATELE T eos 8 % not estab. normal Not Available [facility] ([facility]) [address] [facility], [place], [address], 01/25/2025 11:12:07 01/25/20 25 01/24/2025 CBC WITH DIFFE RENTI AL/PL ATELE T basos 0 % not estab. normal Not Available [facility] ([facility]) [address] [place], [address], 01/25/2025 11:12:07 01/25/20 25 01/24/2025 CBC WITH DIFFE RENTI AL/PL ATELE T immature cells RESERVATION CLERK Not Available [facility] ([facility]) [address] [place], [address], 01/25/2025 11:12:07 01/25/20 25 01/24/2025 CBC WITH DIFFE RENTI AL/PL ATELE T neutrophils (absolute) 4.1 x10e3 /uL 1.4-7. 0 normal Not Available [facility] ([facility]) [address] [place], [address], 01/25/2025 11:12:07 01/25/20 25 01/24/2025 CBC WITH DIFFE RENTI AL/PL ATELE T lymphs (absolute) 1.7 x10e3 /uL 0.7-3. 1 normal Not Available [facility] ([facility]) [address] [facility], [place], [address], 01/25/2025 11:12:07 01/25/20 25 01/24/2025 CBC WITH DIFFE RENTI AL/PL ATELE T monocytes(ab solute) 0.8 x10e3 /uL 0.1-0. 9 normal Not Available [facility] ([facility]) [address] [facility], [place], [address], 01/25/2025 11:12:07 01/25/20 25 01/24/2025 CBC WITH DIFFE RENTI AL/PL ATELE T eos (absolute) 0.6 x10e3 /uL 0.0-0. 4 above high normal Not Available [facility] ([facility]) [address] [facility], [place], [address], 01/25/2025 11:12:07 01/25/20 25 01/24/2025 CBC WITH DIFFE RENTI AL/PL ATELE T baso (absolute) 0.0 x10e3 /uL 0.0-0. 2 normal Not Available [facility] ([facility]) [address] [facility], [place], [address], 01/25/2025 11:12:07 01/25/20 25 01/24/2025 CBC WITH DIFFE RENTI AL/PL ATELE T immature granulocytes 0 % not estab. Not Available [facility] ([facility]) [address] [place], [address], 01/25/2025 11:12:07 01/25/20 25 01/24/2025 CBC WITH DIFFE RENTI AL/PL ATELE T immature grans (abs) 0.0 x10e3 /uL 0.0-0. 1 Not Available [facility] ([facility]) [address] [facility], [place], [address], 01/25/2025 11:12:07 01/25/20 25 01/24/2025 CBC WITH DIFFE RENTI AL/PL ATELE T NRBC RESERVATION CLERK Not Available [facility] ([facility]) [address] [facility], [place], [address], 01/25/2025 11:12:07 01/25/20 25 01/24/2025 CBC WITH DIFFE RENTI AL/PL ATELE T hematology comments: RESERVATION CLERK Not Available [facility] ([facility]) [address] [facility], [place], [address], 01/25/2025 11:12:07 01/25/20 25 01/25/2025 URINA LYSIS , ROUTI NE specific gravity 1.013 1.005- 1.030 normal Not Available [facility] ([facility]) [address] [facility], [place], [address], 01/25/2025 11:12:08 01/25/20 25 01/25/2025 URINA LYSIS , ROUTI NE pH 6.0 5.0-7. 5 normal Not Available [facility] ([facility]) [address] [facility], [place], [address], 01/25/2025 11:12:08 01/25/20 25 01/25/2025 URINA LYSIS , ROUTI NE urine-color Yellow yellow Not Available [facility] ([facility]) [address] [facility], [place], [address], 01/25/2025 11:12:08 01/25/2001/25/2025 URINA LYSIS , ROUTI NE appearance Clear clear Not Available [facility] ([facility]) [address] [facility], [place], [address], 01/25/2025 11:12:08 01/25/20 25 01/25/2025 URINA LYSIS , ROUTI NE WBC esterase Negati ve negati ve Not Available [facility] ([facility]) [address] [facility], [place], [address], 01/25/2025 11:12:08 01/25/20 25 01/25/2025 URINA LYSIS , ROUTI NE protein 3+ negati ve/tra ce abnormal Not Available [facility] ([facility]) [address] [place], [address], 01/25/2025 11:12:08 01/25/20 25 01/25/2025 URINA LYSIS , ROUTI NE glucose Negati ve negati ve Not Available [facility] ([facility]) [address] [facility], [place], [address], 01/25/2025 11:12:08 01/25/2001/25/2025 URINA LYSIS , ROUTI NE ketones Negati ve negati ve Not Available [facility] ([facility]) [address] [place], [address], 01/25/2025 11:12:08 01/25/20 25 01/25/2025 URINA LYSIS , ROUTI NE occult blood 1+ negati ve abnormal Not Available [facility] ([facility]) [address] [place], [address], 01/25/2025 11:12:08 01/25/20 25 01/25/2025 URINA LYSIS , ROUTI NE bilirubin Negati ve negati ve Not Available [facility] ([facility]) [address] [place], [address], 01/25/2025 11:12:08 01/25/20 25 01/25/2025 URINA LYSIS , ROUTI NE urobilinogen ,semi-qn 0.2 mg/dL 0.2-1. 0 normal Not Available [facility] ([facility]) [address] [place], [address], 01/25/2025 11:12:08 01/25/20 25 01/25/2025 URINA LYSIS , ROUTI NE nitrite, urine Negati ve negati ve Not Available [facility] ([facility]) [address] [facility], [place], [address], 01/25/2025 11:12:08 01/25/20 25 01/25/2025 URINA LYSIS , ROUTI NE microscopic examination See below: Micro bernice ray was indic ated and was perfo rmed. Not Available [facility] ([facility]) [address] [facility], [place], [address], 01/25/2025 11:12:08 01/25/20 25 01/25/2025 URINA LYSIS , ROUTI NE WBC None seen /hpf 0 - 5 Not Available [facility] ([facility]) [address] [facility], [place], [address], 01/25/2025 11:12:08 01/25/20 25 01/25/2025 URINA LYSIS , ROUTI NE RBC None seen /hpf 0 - 2 Not Available [facility] ([facility]) [address] [facility], [place], [address], 01/25/2025 11:12:08 01/25/20 25 01/25/2025 URINA LYSIS , ROUTI NE epithelial cells (non renal) None seen /hpf 0 - 10 Not Available [facility] ([facility]) [address] [facility], [place], [address], 01/25/2025 11:12:08 01/25/20 25 01/25/2025 URINA LYSIS , ROUTI NE epithelial cells (renal) RESERVATION CLERK Not Available [facility] ([facility]) [address] [facility], [place], [address], 01/25/2025 11:12:08 01/25/20 25 01/25/2025 URINA LYSIS , ROUTI NE casts None seen /lpf none seen Not Available [facility] ([facility]) [address] [facility], [place], [address], 01/25/2025 11:12:08 08/18/01/25/2025 URINA LYSIS , ROUTI NE cast type RESERVATION CLERK Not Available [facility] ([facility]) [address] [facility], [place], [address], 01/25/2025 11:12:08 01/25/20 25 01/25/2025 URINA LYSIS , ROUTI NE crystals RESERVATION CLERK Not Available [facility] ([facility]) [address] [facility], [place], [address], 01/25/2025 11:12:08 01/25/20 25 01/25/2025 URINA LYSIS , ROUTI NE crystal type RESERVATION CLERK Not Available [facility] ([facility]) [address] [facility], [place], [address], 01/25/2025 11:12:08 01/25/20 25 01/25/2025 URINA LYSIS , ROUTI NE mucus threads RESERVATION CLERK Not Available [facility] ([facility]) [address] [facility], [place], [address], 01/25/2025 11:12:08 01/25/20 25 01/25/2025 URINA LYSIS , ROUTI NE bacteria None seen none seen/f ew Not Available [facility] ([facility]) [address] [facility], [place], [address], 01/25/2025 11:12:08 01/25/20 25 01/25/2025 URINA LYSIS , ROUTI NE yeast RESERVATION CLERK Not Available [facility] ([facility]) [address] [facility], [place], [address], 01/25/2025 11:12:08 01/25/20 25 01/25/2025 URINA LYSIS , ROUTI NE trichomonas RESERVATION CLERK Not Available [facility] ([facility]) [address] [facility], [place], [address], 01/25/2025 11:12:08 01/25/20 25 01/25/2025 URINA LYSIS , ROUTI NE comment RESERVATION CLERK Not Available [facility] ([facility]) [address], [address], 01/25/2025 11:12:08 01/25/20 25 01/25/2025 RENAL PANEL (10) glucose 124 mg/dL 70-99 above high normal Not Available [facility] ([facility]) [address] [place], [address], 01/25/2025 11:12:09 01/25/20 25 01/25/2025 RENAL PANEL (10) BUN 55 mg/dL 8-27 above high normal Not Available [facility] ([facility]) [address], [address], 01/25/2025 11:12:09 01/25/20 25 01/25/2025 RENAL PANEL (10) creatinine 3.72 mg/dL 0.76-1 .27 above high normal Not Available [facility] ([facility]) [address] [facility] [place], [address], 01/25/2025 11:12:09 01/25/20 25 01/25/2025 RENAL PANEL (10) eGFR 15 mL/mi n/1.7 3 >59 below low normal Not Available [facility] ([facility]) [address], [address], 01/25/2025 11:12:09 01/25/20 25 01/25/2025 RENAL PANEL (10) BUN/creatini ne ratio 15 10-24 normal Not Available [facility] ([facility]) [address] [facility] [place] [place], [address], 01/25/2025 11:12:09 01/25/20 25 01/25/2025 RENAL PANEL (10) sodium 138 mmol/ L 134-14 4 normal Not Available [facility] ([facility]) [address] [facility] [place], [address], 01/25/2025 11:12:09 01/25/20 25 01/25/2025 RENAL PANEL (10) potassium 4.6 mmol/ L 3.5-5. 2 normal Not Available [facility] ([facility]) [address] [facility] [place], [address], 01/25/2025 11:12:09 01/25/20 25 01/25/2025 RENAL PANEL (10) chloride 107 mmol/ L 96-106 above high normal Not Available [facility] ([facility]) [address] [facility] [place], [address], 01/25/2025 11:12:09 01/25/20 25 01/25/2025 RENAL PANEL (10) carbon dioxide, total 16 mmol/ L 20-29 below low normal Not Available [facility] ([facility]) [address] [facility] [place], [address], 01/25/2025 11:12:09 01/25/20 25 01/25/2025 RENAL PANEL (10) calcium 9.0 mg/dL 8.6-10 .2 normal Not Available [facility] ([facility]) [address] [facility] [place], [address], 01/25/2025 11:12:09 01/25/20 25 01/25/2025 RENAL PANEL (10) phosphorus 2.8 mg/dL 2.8-4. 1 normal Not Available [facility] ([facility]) [address] [facility] [place], [address], 01/25/2025 11:12:09 01/25/20 25 01/25/2025 RENAL PANEL (10) albumin 3.8 g/dL 3.7-4. 7 normal Not Available [facility] ([facility]) [address] [facility] [place], [address], 01/25/2025 11:12:09 01/25/20 25 01/25/2025 IRON AND TIBC iron bind.cap.(TI BC) 321 ug/dL 250-45 0 normal Not Available [facility] ([facility]) [address] [place], [address], 01/25/2025 11:12:09 01/25/20 25 01/25/2025 IRON AND TIBC UIBC 276 ug/dL 111-34 3 normal Not Available [facility] ([facility]) [address] [facility], [place], [address], 01/25/2025 11:12:09 01/25/20 25 01/25/2025 IRON AND TIBC iron 45 ug/dL 38-169 normal Not Available [facility] ([facility]) [address] [place], [address], 01/25/2025 11:12:09 01/25/20 25 01/25/2025 IRON AND TIBC iron saturation 14 % 15-55 below low normal Not Available [facility] ([facility]) [address] [place], [address], 01/25/2025 11:12:09 01/25/20 25 01/25/2025 PROT+ CREAT U (RAND OM) creatinine, urine 69.3 mg/dL not estab. normal Not Available [facility] ([facility]) [address] [place], [address], 01/25/2025 11:12:10 01/25/20 25 01/25/2025 PROT+ CREAT U (RAND OM) protein,tota l,urine 219.4 mg/dL not estab. normal Resul ts confi rmed on dilut ion. Not Available [facility] ([facility]) [address] [place], [address], 01/25/2025 11:12:10 01/25/20 25 01/25/2025 PROT+ CREAT U (RAND OM) protein/crea t ratio 3166 mg/g_ creat 0-200 above high normal Not Available [facility] ([facility]) [address] [place], [address], 01/25/2025 11:12:10 01/25/20 25 01/25/2025 VITAM IN [...] um and D. Elder aragon [place]: The [facility] . 2. Zuly de la paz [place], Makayla deras [place], [place] t[place] i [place], et al. Evalu ation , treat ment, and preve ntion of vitam in D defic iency : an Endoc rine Socie ty clini siobhan pract ice guide line. JCEM. 2010; 96(7) :1911 -30. Not Available [facility] ([facility]) [address] [place], [address], 01/25/2025 11:12:11 01/25/20 25 01/25/2025 MIGDALIA TIN ferritin 40 NG/mL 30-400 normal Not Available [facility] ([facility]) [address] [place], [address], 01/25/2025 11:12:11 01/25/20 25 01/25/2025 PTH, INTAC T PTH, intact 96 pg/mL 15-65 above high normal Not Available [facility] ([facility]) [address] [place], [address], 01/25/2025 11:12:12 12/29/19 25 12/22/2024 trans -thor acic echoc ardio gram (TTE) (PROC ) No observ ation record ed. [email or web address] [facility] [address], [place], [address], 12/29/2024 13:05:12 04/21/20 25 04/21/2025 imagi ng/di agnos tic resul t No observ ation record ed. [email or web address] [facility] [address], [place], [address], 04/22/2025 15:27:06 Result Notes None recorded. Problems Name Problem SNOMED Code Status Onset Date Resolution Date Notes Provider Name and Address Organization Details Recorded Time Essential hypertens ion 14267553 Active 2015 Not Available [facility] 3 11:37:22 Deep venous thrombosi s 970280284 Active 2015 Not Available [facility] 3 11:37:22 Type 2 diabetes mellitus 15470576 Completed 201505/23/2021 Marcelina Longo, LEAN CONSULTANT [address], [place], [address] , [place] - [facility] 1 10:42:42 Hyperlipi demia 04578430 Active 2015 Not Available [facility] 3 11:37:22 Impotence Active 2015 Not Available [facility] 3 11:37:22 Long-term current use of anticoagu lant 747067972 Active 2015 Not Available [facility] 3 11:37:22 Obesity 093484872 Active 2015 Not Available [facility] 3 11:37:22 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 Not Available [facility] 3 11:37:22 Periphera l vascular disease 963209785 Active 2015 Not Available [facility] 3 11:37:22 Pulmonary embolism 16123560 Completed 201504/08/2016 Paula Gee fatimah [place] - [facility] 6 13:01:47 Warfarin monitorin g status 720143679 Active 2016 Not Available [facility] 3 11:37:22 Vitamin D deficienc y 23089643 Active 2020 Not Available [facility] 3 11:37:22 Hyperglyc emia due to type 2 diabetes mellitus 28011040132 9109 Active 2020 Not Available [facility] 3 11:37:22 Chronic kidney disease stage 3 876779582 Active 2020 Not Available [facility] 3 11:37:22 Chronic ki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 94761861891 5 Active 2020 Not Available [facility] 3 11:37:22 Mixed hyperlipi demia 506914353 Active 2020 Not Available [facility] 3 11:37:22 History of deep vein thrombosi s 663479521 Active 2020 Not Available [facility] 3 11:37:22 History of pulmonary embolus 050666736 Active 2020 Not Available [facility] 3 11:37:22 Benign essential hypertens ion 1076104 Active 2020 Kat Carnes APRN [address], [place], [address] , [place] - [facility] 5 10:37:04 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 Procedures Surgical History Date Name Laterality Status Provider Name and Address Organization Details Recorded Time 03/24/[address] [facility] 03/24/2025 13:08:38 12/30/19 25 A1C level 6.9 and below [facility] 12/29/2024 10:00:50 09/22/19 25 A1C level 8.0 to 9.0 completed [facility] 09/21/2024 14:59:34 05/19/20 24 Advance Care Planning completed Paula Gee [facility] 05/19/2024 12:54:25 05/19/20 24 Functional Status Assessed completed Paula Gee [facility] 05/19/2024 12:54:25 01/21/20 24 Positive Microalbumin [facility] 01/21/2024 10:44:25 01/21/20 24 A1C level 6.9 and below completed Clive [facility] 01/21/2024 10:48:27 10/22/19 24 A1C level 6.9 and below completed CliveLulu Sarmientoyles [facility] 10/22/2023 13:05:51 07/24/19 24 A1C level 8.0 to 9.0 completed Clive Pineda [facility] 07/24/2023 11:56:27 04/08/20 23 A1C level 6.9 and below [facility] 04/08/2023 11:20:15 09/05/19 23 Medication Reconcilliation completed Paula Gee [facility] 09/04/2022 13:11:20 06/13/19 23 A1C level 7.0 to 7.9 completed Clive Pineda [facility] 06/13/2022 11:10:06 03/06/20 22 A1C level 7.0 to 7.9 completed Clive Pineda [facility] 03/06/2022 13:11:24 12/04/19 22 A1C level 7.0 to 7.9 completed Clive Pineda [facility] 12/03/2021 14:19:16 11/29/19 22 Cerumen Removal completed Giovanni Glass MD [address], [place], [address] 11/28/2021 10:57:35 08/30/19 22 Positive Microalbumin [...] A1C level 7.0 to 7.9 completed Myah [place] - [facility] 08/01/2020 16:34:05 07/26/19 21 [...] Hg completed Myah Ontiveros [place] - [facility] 04/18/2020 16:34:19 04/18/20 20 [...] than 80 mm Hg completed Paula Hay [facility] 09/08/2019 12:57:39 08/11/19 20 Systolic B/P less than 130 mm Hg completed Paula Gerard [facility] 08/11/2019 13:09:51 08/11/19 20 Diastolic B/P 80-89 mm Hg completed [facility] 08/11/2019 13:09:55 06/10/19 20 Systolic B/P less than 130 mm Hg completed [facility] 06/10/2019 12:57:49 06/10/19 20 Diastolic B/P 80-89 mm Hg completed [facility] 06/10/2019 12:57:53 10/25/19 18 Advance Care Planning completed Corine Welch RN [address], [place], [address], [facility] 10/24/2017 08:56:49 Cataract Surgery completed Corine Welch RN [address], [place], [address], [facility] 10/24/2017 09:14:03 Imaging Results None recorded. Procedure [...] Available Not Available Nasonex 50 mcg/actua tion Leighton 1 sniff bilat bid 09/15 completed Nasonex [...] Not Available Not Available Easy Comfort Pen Scotrun 32 gauge x 5/32 USE DIRECTED DAILY [...] Updated DateTime 5 182.88 cm 26.2 kg/m2 78252.3 3 g 97.9 [degF] 72 /min 97 % 18 /min 0 130/82 mm[Hg] Paula MARIEE [facility] 5 10:45:56 Social History Question Answer Notes LastModified by Organization Details LastModified Time Tobacco Smoking Status Former Smoker Paula Gee [facility] 04/08/2016 13:03:41 Able To Swim? Yes [...] Or The Highest Degree You Have Received? [id number] Information not available 01/18/2021 Swimming/diving No Informati [...] anxious, or unable to sleep at night)? [id number] Information not available 01/18/2021 Do you have [...] colitis N Cerebrovascular Disease N Depression N Guillain-[place] N Sleep Apnea N Aneurysm N Bronchitis N Heart Disease N Suicidal Ideation N Pre-Eclampsia N Hypertension Y Osteoporosis N Immunizations Vaccine Type Date Status Note Provider Nam e and Address Organization Details Recorded Time COVID-19, mRNA, LNP-S, PF, 100 mcg/0.5mL dose or 50 mcg/0.25mL dose 1 completed Radha [place], [place] - [facility] 05/26/2024 10:16:32 COVID-19, mRNA, LNP-S, PF, 100 mcg/0.5mL dose or 50 mcg/0.25mL dose 1 completed Radha sheridan, [place] - [facility] 05/26/2024 10:16:32 Influenza, split virus, trivalent, PF 2 completed Radha sheridan, [place] - [facility] 05/26/2024 10:16:32 Influenza, high-dose, quadrivalent, PF 0 completed Shahnaz Herman APRN [address], [place], [address], [place] - [facility] 03/14/2020 16:08:39 Influenza, high-dose, quadrivalent, PF 1 completed Giovanni Glass MD [address], [place], [address], [place] - [facility] 03/21/2021 14:31:50 influenza, unspecified formulation 0 completed Not Available [facility] 02/01/2023 11:37:23 influenza, unspecified formulation 1 completed Not Available [facility] 02/01/2023 11:37:23 influenza, unspecified formulation 2 completed Radha sheridan, [place] - [facility] 05/26/2024 10:16:32 influenza, unspecified formulation 3 completed Not Available [facility] 02/01/2023 11:37:23 influenza, unspecified formulation 4 completed Not Available [facility] 02/01/2023 11:37:23 influenza, unspecified formulation 5 completed Not Available [facility] 02/01/2023 11:37:23 influenza, unspecified formulation 8 completed Not Available [facility] 02/01/2023 11:37:23 influenza, unspecified formulation 9 completed Not Available [facility] 02/01/2023 11:37:23 Influenza, split virus, quadrivalent, preservative 7 completed Not Available [facility] 06/26/2019 03:54:42 COVID-19, mRNA, LNP-S, PF, 100 mcg/0.5mL dose or 50 mcg/0.25mL dose 2 completed Giovanni Glass MD [address], [place], [address], [place] - [facility] 06/21/2021 11:12:07 Influenza, high-dose, quadrivalent, PF 2 completed Marcelina Longo APRN [address], [place], [address], [place] - [facility] 03/06/2022 13:31:11 Influenza, high-dose, quadrivalent, PF 3 completed Paula [place], [place] - [facility] 03/13/2023 09:48:17 Influenza, split virus, quadrivalent, preservative 6 completed Not Available [facility] 02/01/2023 11:37:23 zoster live 9 completed Not Available [facility] 02/01/2023 11:37:23 Influenza, high-dose, trivalent, PF 4 completed Debra Barajas MD [address], [place], [address], [place] - [facility] 03/09/2024 15:47:29 Tdap 4 completed Paula sher[place], [place] - [facility] 05/19/2024 16:57:05 Pneumococcal conjugate PCV20, polysaccharide [id number] conjugate, adjuvant, PF 4 completed Paula Gee [place], [place] - [facility] 05/19/2024 16:57:56 Influenza, high-dose, trivalent, PF 5 completed Giovanni Glass MD [address], [place], [address], [place] - [facility] 03/24/2025 13:57:50 Influenza, high-dose, trivalent, PF 8 completed Not Available [facility] 06/26/2019 03:55:10 SARS-COV-2 (COVID-19) vaccine, UNSPECIFIED 1 completed Radha sheridan, [place] - [facility] 05/26/2024 10:16:32 SARS-COV-2 (COVID-19) vaccine, UNSPECIFIED 1 completed Radha [place] - [facility] 05/26/2024 10:16:32 Influenza, high-dose, trivalent, PF 9 completed Not Available [facility] 06/26/2019 03:56:04 Past Encounters Encounter ID Performer Location Encounter Start Date Encounter Closed Date Diagnosis/Indication Diagnosis SNOMED-CT Code Diagnosis ICD10 Code Diagnosis IMO Codes Diagnosis Note [id number] Marcelina Longo APRN [address] [place] [address] 12/29/2024 09:45:18 12/29/2024 10:17:41 Hyperglycemia due to type 2 diabetes mellitus 0016439310 47390 E11.65 Benign ess ential hypertension 9695288 I10 Obesity 569842049 E66.9 Peripheral vascular disease 133194477 I73.9 Body mass index 25-29 - overweight 436426793 Z68.25 Peripheral neuropathy due to type 2 diabetes mellitus 4835906577 107 E11.42 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 4088471352 05 E11.22 Mixed hyperlipidemia 267 666329 E78.2 History of deep vein thrombosis 895586098 Z86.718 History of pulmonary embolus 553579692 Z86.711 Vitamin D deficiency 347 38439 E55.9 Iron defic iency anemia 33306162 D50.9 Prostate s pecific antigen above reference range 571833830 R97.20 Overweight in adulthood with body mass index of 25 or more but less than 30 867534495 Z68.26 [id number] Giovanni Glass MD [address] [place] [address] 01/27/2025 10:38:04 01/27/2025 11:31:59 Obesity 462656597 E66.9 Adverse re action to drug 83994176 T50.905A 74526206 Overweight in adulthood with body mass index of 25 or more but less than 30 928325609 Z68.26 [id number] Health Concerns Section Related Observation LastModified by Organization Detai ls LastModified Time None Recorded Concern Status LastModified by Organization Details LastModified Time None Recorded Payers Encounter Date Sequence Insurance Name Policy Number Policy Mcintyre Covered Member ID Mcintyre Member ID Guarantor Name 01/27/2025 1 [employer] (MEDICARE REPLACEMENT/A DVANTAGE - PPO) Owen Salazar [id number] Owen Salazar Notes Date Note Type Note Provider Name and Address Organization Details Recorded Time 01/27/2025 text/html C/O 3 week history rash all over and itching. Was thought by cash sales audit clerk to be from torsemide which he just started. Is off that but rash persists. Also getting weaker with poor balance. Can safely use cane or walker to accomplish MRADLs and needs walker. Giovanni Glass MD [facility] [address], [place], [address], [facility] - [facility] 03/18/2025 15:38:51
== END 2025-04-28 23:59 | disposition home or self-care (01) ==
LOC: RT 11:16
PROVIDERS: PCP Family Medicine; Visit Provider Internal Medicine
DX: I82.90 Acute embolism and thrombosis of unspecified vein (principal); Z86.718 Personal history of other venous thrombosis and embolism; Z79.01 Long term (current) use of anticoagulants
CPT/HCPCS: 93971

== ENCOUNTER 2025-05-02 10:42 | Outpatient (CLI) | payer MEDICARE, SELFPAY ==
--- OUTSIDE RECORDS SUMMARY | 2025-03-06 18:34 | XMS_ITS | Encounter Summary ---
Author Organization Healthcare Address [address] [place] [address] Care Team Providers Care Tuber Operator Name Role Phone Pcp, No Primary Care Provider Unavailabl e Reason for Referral * Consultation (Routine) - Authorized Specialty Diagnoses / Procedures Referred By Contac t Referred To Contact Cardiology Diagnoses SVT (supraventricular tachycardia) ([facility]/HCC) Harish Baer MD [address] [place] [phone] Phone: tel: fax: Referral ID Status Reason Start Date Expiration Date Visits Requested Visits Authorized [id number] Authorized Specialty Services Required 03/10/2025 09/09/2026 1 1 * Consultation (Routine) - Authorized Specialty Diagnoses / Procedures Referred By Contac t Referred To Contact Nephrology Diagnoses ROSA (acute kidney injury) Harish Baer MD [address] [place] [address] Phone: tel: fax: Referral ID Status Reason Start Date Expiration Date Visits Requested Visits Authorized [id number] Authorized Specialty Services Required 03/10/2025 09/09/2026 [address] Garry Moser MD [email or web address] 09/11 (6 Webmd reviews) Security Intelligence Analyst in [place], [place] [address] [place], [place] [phone] mi * Consultation (Routine) - Authorized Specialty Diagnoses / Procedures Referred By Contac t Referred To Contact Diagnoses ROSA (acute kidney injury) Harish Baer MD [address] [place] [address] Phone: tel: fax: Referral ID Status Reason Start Date Expiration Date V isits Requested Visits Authorized [id number] Authorized 03/10/2025 09/09/2026 1 1 Reason for Visit * Reason Comments Shortness of Breath * Auth/Cert (Routine) Specialty Diagnoses / Procedures Referred By Damion pisano Referred To Contact Diagnoses Acute kidney injury superimposed on CKD Elgin Key MD [address] [place] [address] Phone: tel: fax: [facility] Emergency Department [address] [place] [phone] Phone: tel: Referral ID Status Reason Start Date Expiration Date Visits Re quested Visits Authorized [id number] 1 1 Encounter Details Date Type Department Care Team (Latest Contact Info) Description 03/06/2025 7:34 PM EDT - 03/10/2025 5:07 PM EDT Hospital Encounter [facility] Inpatient [address] [place] [phone] Nabor Tam MD [address] [place] [id number] Ariella Chapman MD [address] [place] [phone] Elgin Key MD [address] [place] [address] Harish Baer MD [address] [place] [address] ROSA (acute kidney injury) (CMS/HCC) (Primary Dx); SVT (supraventricular tachycardia) (CMS/[facility]) Discharge Disposition: Home or Self Care Social [...] any time in the past 12 m [facility], were you homeless or living in a alf (including now)? No 03/07/2025 [facility] Utilities Answer Date Recorded In the past 12 months has th e [employer], gas, oil, or water company threatened to [...] Care - Nephrology Dr. Garry Moser MD [facility].[address], [place] [address] ?? 57 nc - Cardiology There may be other appointments, [...] PCP name and Address: Pcp, No [address] [facility] / [place] [phone] Referring provider name and address: No referring [...] Your Medications These medications were sent to [facility] - [place], [place] - [address] [facility] [id number] Alcoh-Wipe sheet amLODIPine 2.5 MG tablet apixaban [...] Care - Nephrology Dr. Garry Moser MD [address] [place] [address] ?? 57 nc - Cardiology There may be other appointments, [...] Glomerular Basement Membrane Antibody, IgG In process Long Barn Lambda Quant Free Light Chains w/Ratio In process Long [place] Lambda Quant Free Light Chains w/Ratio In process Primary Membranous Nephropathy Diagnostic [place], S (SO) In process Pertinent Physical Exam [...] Note Owen Salazar 84 y.o. male CSN: [id number] This is a 84 y.o. male patient was admitted to [facility] with the diagnosis of ROSA. DM education [...] frailty, severe comorbidities, and a less favorable cwux-cu-cymsqdy ratio of diabetes medications Follow Ups: Provided with educational literature and the diabetic [facility] diabetes basics booklet, [facility] 60g cho handout, and myplate tear sheet, [...] Note Owen Salazar 84 y.o. male CSN: [id number] Admission: 03/06/2025 7:34 PM Primary Problem: ROSA (acute kidney injury) Primary Family Worker: Primary Caregiver: Self Assistance Available at Discharge: Availability of Care Givers (#Hours): (Family can assist as needed.) Family/Family Worker(s) Willingness Assessed to care for patient at [...] Ongoing, Progressing Intervention: Promote Activity and Functional [place] Flowsheets (Taken 03/09/20252349) Activity Assistance Provided: assistance, [...] Ongoing, Progressing Intervention: Promote Activity and Functional [place] Flowsheets (Taken 03/09/20251928) Activity Assistance Provided: assistance, [...] Baer MD PhD Division of Hospital Medicine [phone] [1] apixaban, 5 mg, Oral, BID atorvastatin, [...] medical history of CHF (congestive heart failure) ([facility]), CKD (chronic kidneydisease), Former cigarette smoker (03/07/2025), [...] admission Level of Mobility: Ambulatory- community Mobility [place]: Independent gait with device History of Falls: [...] Mobility Bed Mobility Exam: Scooting/Bridging Level of [place]: Stand-by assist Physical/Nonphysical Assist: Supervision Bed Mobility Exam: Supine to Sit Level of [place]: Stand-by assist Physical/Nonphysical Assist: Supervision Bed Mobility Exam: Sit to Supine Level of [place]: Stand-by assist (patient spontaneously returned to supine after reports of dizziness) Physical/Nonphysical Assist: Supervision Transfers Transfer Exam: Sit to stand Level of [place]: Stand-by assist Physical/Nonphysical Assist: Supervision Transfer Exam: Stand to Sit Level of [place]: Stand-by assist Physical/Nonphysical Assist: Supervision Balance Static [...] EDT Physical Therapy Evaluation Patient Name: Owen Salazar Today's Date: 03/09/2025 PT Discharge Recommendations: Home [...] medical history of CHF (congestive heart failure) ([facility]), CKD (chronic kidneydisease), Former cigarette smoker (03/07/2025), [...] an 84 y/o male who presents to [facility] with shortness of breath. Participants in Care [...] admission Level of Mobility: Ambulatory- community Mobility [place]: Independent gait with device History of Falls: [...] Mobility Bed Mobility Exam: Scooting/Bridging Level of [place]: Stand-by assist Physical/Nonphysical Assist: Supervision Bed Mobility Exam: Supine to Sit Level of [place]: Stand-by assist Physical/Nonphysical Assist: Supervision Bed Mobility Exam: Sit to Supine Level of [place]: Stand-by assist (patient spontaneously returned to supine after reports of dizziness) Physical/Nonphysical Assist: Supervision Transfers Transfer Exam: Sit to stand Level of [place]: Stand-by assist Physical/Nonphysical Assist: Supervision Transfer Exam: Stand to Sit Level of [place]: Stand-by assist Physical/Nonphysical Assist: Supervision Ambulation Device: No device Assistance: Contact guard assist Distance : 28 ft. in room Ambulation Comments: Patient demonstrates decreased hollie and step length bilaterally with no loss of balance, reported dizziness upon transfer to [facility] that quickly subsided Therapeutic Activity ( 12 minutes) Patient participated in education regarding role of therapy services, discharge recommendations, transfers and balance activities with physical therapist after assessment. Patient also provided with education regarding pace of transfers and mobility, to allow body to reach equilibrium, and precautions regarding orthostasis. Standardized Assessments Standardized Assessments Standardized Assessments: [facility] 6-Clicks Mobility Assessment [facility] 6-Clicks Mobility Assessment Difficulty patient has turning [...] 3-5 steps with a railing?: A little [facility] 6-Clicks Mobility Assessment Total : 19 Standardized Assessments Standardized Assessments Standardized Assessments: [facility] 6-Clicks Mobility Assessment [facility] 6-Clicks Mobility Assessment Difficulty patient has turning [...] 3-5 steps with a railing?: A little [facility] 6-Clicks Mobility Assessment Total : 19 No [...] further palpitations. He discussed his experiences [place] and [place] as well as fishing in [place]. Review of Systems: Constitutional: no fevers, no [...] Baer MD PhD Division of Hospital Medicine [phone] [1] atorvastatin, 10 mg, Oral, Nightly carvedilol, [...] Baer MD PhD Division of Hospital Medicine [phone] [1] atorvastatin, 10 mg, Oral, Nightly carvedilol, [...] offer additional resources at request. Meredith Page ED-coating machine feeder * Progress Notes - Lulu Jon - 03/07/2025 7:50 AM EDT Case Management Adult Initial Progress Note Owen Salazar 84 y.o. male CSN: [id number] Admission: 03/06/2025 7:34 PM Primary Problem: Acute kidney injury superimposed on CKD Sales Ledger Administrator reviewed chart and spoke with patient to complete this Initial Case Management Assessment. Patient verified information. Patient phone number is [phone]. PCP: Giovanni Glass MD- [place], [place] Emergency Contact: Extended Emergency Contact Information Primary Emergency Contact: MICH Salazar Mobile Relation: Son Preferred language: Bangladeshi Rod Mill Operator needed? No Insurance: Primary Visit Coverage Payer Plan Sponsor Code Group Number Group Name HUMANA MEDICARE HUMANA MEDICARE [id number] Primary Visit Coverage Subscriber Subscriber ID Subscriber Name Subscriber SSN Subscriber Address [id number] Owen Salazar [id number] [place] [address] Patient information: Primary Caregiver: Self Support System: Immediate family Daily Living Activities: Functional Status: Minimum assistance Living Arrangements: Spouse/Significant other Type of Residence: Private residence (2 steps to enter home, 1 step in house) [address] [place] [address] Current DME: Equipment Currently Used at Home: [...] Dialysis Services: Denies Living Will/Advance Directive/Power of Resource Specialist Teacher /Guardian: Have you reviewed your Advance Directive and is it valid for this stay?: Not applicable Pre-existing DNR/DNI Order: No Denies LW or POA. Additional Comments: CM met with patient at bedside. Went over role of drill sergeant, completed initial CM assessment, and will continue [...] followed with a primary care provider and preparation plant repairer but had not previously been diagnosed with cardiac disease or renal dysfunction. He began having significant dyspnea with exertion and lower extremity weakness. He was evaluated at [facility] and diagnosed with what hedescribes as fluid around his heart and kidney failure. He mentions they prescribed multiple medications to help with this fluid that increased his urinary output and improved his symptoms. He mentions they have been making frequent medication changes based on his kidney function. He has been adherent to his medication regimen and following with his armature bander and computer video game designer regularly. Of note his computer video game designer is in [facility] and his armature bander, preparation plant repairer, and primary care physicianare located in [place]. He currently feels well with improvement in [...] y.o. male who initially presented to the [facility] for acute on chronic renal failure, and Cardiology is being consulted for recommendations and management ofSVT and HF. 1) SVT - resolved 2) CHF (unclear LVEF), NYHA III, ACC/AHA C 3) CKD, unclear baseline Mr. Salazar notes a recent diagnosis of HF and symptoms that have improved since initiation of GDMT and diuretics. He follows with a computer video game designer in [facility] who has been titrating and altering his [...] the attending physician. Please page the on-call film reproducer ([phone]) with any further questions. I spent 30 [...] Cardiology whom recommended replacing magnesium IV. at [place] consulted to admit. Medical/Surgical/Social/Family History Past Medical History[1] Surgical History[2] Social History[3] Family History[4] , now remarried. Lives with current in [place], [place]. Ambulates with walker/cane at baseline. Travel [...] bedtime Order ID Start Status Ordering Provider [id number] 03/07/25 0700 Acknowledged JASON QUEZADA [id number] 03/07/25 1100 Acknowledged JASON QUEZADA [id number] 03/07/25 1700 Acknowledged GABRIELLE, GITANA B [id number] 03/07/25 2200 Acknowledged GABRIELLE, GITANA B [id number] 03/08/25 0700 Acknowledged GABRIELLE, GITANA B [id number] 03/08/25 1100 Acknowledged GABRIELLE, GITANA B [id number] 03/08/25 1700 Acknowledged GABRIELLE, GITANA B 03/08/25 [...] 6hours. Order ID Start Status Ordering Provider [id number] 03/07/25 0600 Acknowledged GABRIELLE, GITANA B [id number] 03/07/25 1200 Acknowledged GABRIELLE, GITANA B [id number] 03/07/25 1800 Acknowledged GABRIELLE, GITANA B [id number] 03/08/25 0000 Acknowledged GABRIELLE, GITANA B [id number] 03/08/25 0600 Acknowledged GABRIELLE, GITANA B [id number] 03/08/25 1200 Acknowledged GABRIELLE, GITANA B [id number] 03/08/25 1800 Acknowledged GABRIELLE, GITANA B 03/09/25 [...] meal. Order ID Start Status Ordering Provider [id number] 03/07/25 0311 Acknowledged GABRIELLE, GITANA B [id number] 03/07/25 0900 Acknowledged GABRIELLE, GITANA B [id number] 03/07/25 1300 Acknowledged GABRIELLE, GITANA B [id number] 03/07/25 1900 Acknowledged GABRIELLE, GITANA B [id number] 03/08/25 0900 Acknowledged GABRIELLE, GITANA B [id number] 03/08/25 1300 Acknowledged GABRIELLE, GITANA B [id number] 03/08/25 1900 Acknowledged GABRIELLE, GITANA B 03/09/25 [...] Drug Abuse Screen, Urine STAT Final result JASON QUEZADA 03/07/25 0001 Urinalysis with reflex microscopic [...] occasional premature ventricular complexes, left axis, no IN prolongation, narrow QRS, no QTC prolongation. No [...] Impressions as of 03/08/251949 SVT (supraventricular tachycardia) (CMS/[facility]) ROSA (acute kidney injury) ([facility]) Social Determinates of Health Risks (including Economic Stability, Education and level of understanding, Healthcare access and quality and concerning social factors): None identified on this visit Ultimately, this patient was Was admitted (Admission) The primary encounter diagnosis was ROSA (acute kidney injury) (CMS/[facility]). A diagnosis ofSVT (supraventricular tachycardia) (CMS/[facility]) was also pertinent to this visit.. Patient believed torequire admission for the listed diagnoses. The Cardiology service was consulted for admission and was agreeable to admit to Acute Floor (Med/Surg). ED Prescriptions None Disposition Admit Admitting/Attending Physician: ELGIN KEY [[id number]] Provider Care Team: ERNIE NICHOLSON 8 [[id number]] [...] and denies hitting his head, +BT. Pt Jrg504% in lobby, placed on NRB and SpO2 96%. Pt HR elevated. documented in this encounter Plan of Treatment Scheduled Referrals Name Type Priority Associated Diagnoses Order Schedule Ambulatory referral for Follow Up Care Outpatient Referral Routine ROSA (acute kidney injury) ([facility]) 1 Occurrences starting 03/10/2025 until 09/11/2026 Discharge Ambulatory referral to NON [facility] Outpatient Referral Routine ROSA (acute kidney injury) ([facility]) Expected: 03/10/2025 (Approximate), Expires: 09/11/2026 Discharge Ambulatory referral to Cardiology Outpatient Referral Routine SVT (supraventricular tachycardia) ([facility]) 1 Occurrences starting 03/10/2025 until 09/11/2026 documented [...] ECG ADULT STAT 03/06/2025 7:31 PM EDT IN CRITICAL CARE, E/M 30-74 MINUTES Routine 03/06/2025 7:17 PM EDT documented in this encounter Results * (ABNORMAL) POCT glucose meter (03/10/2025 12:13 PM EDT) [facility] POCT Glucose 192(H) 74 - 99 mg/dL 03/10/2025 12:15 PM EDT [facility] Comment:Accuracy of a glucos e result [...] 03/10/2025 12:15 PM EDT [facility] Pulmonologist Intensivist ID Daniel Loving V 025 12:15 PM EDT [facility] Device ID [id number] 03/10/2025 12:15 PM EDT [facility] Specimen Type POC Capillary 03/10/2025 12:15 PM EDT [facility] Blood Capillary blood specimen / Unknown 03/10/2025 12:13 PM EDT 03/10/2025 12:15 PM EDT us Harish Baer MD LAB POINT OF CARE TE ST DOCKED DEVICE UNSOLICITED RESULTS Final Result Performing Organization Address City/State/[facility] Co de Phone Number [facility]ARE [facility] [address] [place] [address] * (ABNORMAL) POCT glucose meter (03/10/2025 7:25 AM EDT) [facility] POCT Glucose 130(H) 74 - 99 mg/dL [...] Comment 03/10/2025 7:44 AM EDT [facility] Pulmonologist Intensivist ID Daniel Loving V 025 7:44 AM EDT [facility]ARE [facility] Device ID [id number] 03/10/2025 7:44 AM EDT [facility] Specimen Type POC Capillary 03/10/2025 7:44 AM EDT [facility] Blood Capillary blood specimen / Unknown 03/10/2025 7:25 AM EDT 03/10/2025 7:44 AM EDT us Harish Baer MD LAB POINT OF CARE TE ST DOCKED DEVICE UNSOLICITED RESULTS Final Result Performing Organization Address [facility] de Phone Number [facility] [address] [place] [address] * (ABNORMAL) [place] Lambda Quant Free Light Chains w/Ratio (03/10/2025 2:04 AM EDT) [place] Lambda Free Light Chain Ratio 1.21 0.26 - 1.65 Ratio 03/11/2025 12:24 AM EDT [facility] Long Barn Quant Free Light Chains 61.25(H) 3.30 - 19.40 mg/L 03/11/2025 12:24 AM EDT [facility] Lambda Quant Free Light Chains 50.82(H) 5.71 - 26.30 mg/L 03/11/2025 12:24 AM EDT [facility] Blood Venous blood specimen / Unknown Venipuncture / Unknown 03/10/2025 2:04 AM EDT 03/10/2025 2:13 AM EDT Narrative [facility] - 03/11/2025 12:24 AM [...] with the testing laboratory. Test performed at [facility]. us Harish Baer MD LAB BLOOD ORDERABLES Final Resu lt [facility] [address] [place] [address] * (ABNORMAL) CBC W/O Differential (03/10/2025 2:04 AM EDT) WBC Count 4.02 3.70 - 10.30 10*3/uL LAB HEMATOLOGY METHOD 03/10/2025 2:22 AM EDT [facility] RBC Count 2.90(L) 4.60 - 6.10 10*6/uL LAB HEMATOLOGY METHOD 03/10/2025 2:22 AM EDT [facility] HGB 8.6(L) 13.7 - 17.5 g/dL LAB HEMATOLOGY METHOD 03/10/2025 2:22 AM EDT [facility] HCT 26.2(L) 40.0 - 51.0 % LAB HEMATOLOGY METHOD 03/10/2025 2:22 AM EDT [facility] Platelet Count 159 155 - 369 10*3/uL LAB HEMATOLOGY METHOD 03/10/2025 2:22 AM EDT [facility] MCV 90 79 - 98 fL LAB HEMATOLOGY METHOD 03/10/2025 2:22 AM EDT [facility] MCH 29.7 26.0 - 32.0 pg LAB HEMATOLOGY METHOD 03/10/2025 2:22 AM EDT [facility] MCHC 32.8 30.7 - 35.5 g/dL LAB HEMATOLOGY METHOD 03/10/2025 2:22 AM EDT [facility] RDW 13.2 11.5 - 14.5 % LAB HEMATOLOGY METHOD 03/10/2025 2:22 AM EDT [facility] MPV 10.4 8.8 - 12.5 fL LAB HEMATOLOGY METHOD 03/10/2025 2:22 AM EDT [facility] nRBC 0.0 <=0.0 per 100 WBCs LAB HEMATOLOGY METHOD 03/10/2025 2:22 AM EDT [facility] Blood Venous blood specimen / Unknown Venipuncture / Unknown 03/10/2025 2:04 AM EDT 03/10/2025 2:14 AM EDT us Harish Baer MD LAB BLOOD ORDERABLES Final Resu lt [facility] [address] [place] [address] * (ABNORMAL) Cystatin C (03/10/2025 2:04 AM EDT) Cystatin C 3.22(H) 0.61 - 0.95 mg/L 03/10/2025 2:46 AM EDT [facility] Blood Venous blood specimen / Unknown Venipuncture / Unknown 03/10/2025 2:04 AM EDT 03/10/2025 2:14 AM EDT Harish Baer MD LAB BLOOD ORDERABLES Final Resu lt Performing Organization Address City/[facility]/ZIP Co de Phone Number [facility] [address] [place] [address] * (ABNORMAL) C-Reactive Protein, Plasma (03/10/2025 2:04 AM EDT) CRP, Plasma 26.7(H) <=8.0 mg/L 03/10/2025 2:46 AM EDT [facility] Blood Venous blood specimen / Unknown Venipuncture / Unknown 03/10/2025 2:04 AM EDT 03/10/2025 2:14 AM EDT Narrative [facility] - 03/10/2025 2:46 AM EDT This CRP test is appropriate for assessment of infection, systemic inflammation and/or tissue injury. To assess cardiovascular disease risk order high sensitivity CRP (CRPH). us Harish Baer MD LAB BLOOD ORDERABLES Final Resu lt Performing Organization Address [facility] [place] [address] * Phosphorus, Plasma (03/10/2025 2:04 AM EDT) Phosphorus, Plasma 3.2 2.5 - 4.5 mg/dL 03/10/2025 2:46 AM EDT [facility] Blood Venous blood specimen / Unknown Venipuncture / Unknown 03/10/2025 2:04 AM EDT 03/10/2025 2:14 AM EDT Harish Baer MD LAB BLOOD ORDERABLES Final Resu lt Performing Organization Address City/[facility]/ZIP Co de Phone Number [facility] [address] [place] [address] * (ABNORMAL) Magnesium, Plasma (03/10/2025 2:04 AM EDT) Magnesium, Plasma 1.8(L) 1.9 - 2.4 mg/dL 03/10/2025 2:46 AM EDT [facility] Blood Venous blood specimen / Unknown Venipuncture / Unknown 03/10/2025 2:04 AM EDT 03/10/2025 2:14 AM EDT us Harish Baer MD LAB BLOOD ORDERABLES Final Resu lt [facility] [address] [place] [address] * (ABNORMAL) Comprehensive Metabolic Panel, Plasma (03/10/2025 2:04 AM EDT) Glucose, Plasma 177(H) 74 - 99 mg/dL 03/10/2025 2:46 AM EDT [facility] BUN, Plasma 42(H) 8 - 23 mg/dL 03/10/2025 2:46 AM EDT [facility] Creatinine, Plasma 3.78(H) 0.70 - 1.20 mg/dL 03/10/2025 2:46 AM EDT [facility] BUN/Creatinine Ratio 11 03/10/2025 2:46 AM EDT [facility] Sodium, Plasma 136 136 - 145 mmol/L 03/10/2025 2:46 AM EDT [facility] Potassium, Plasma 3.8 3.6 - 4.9 mmol/L 03/10/2025 2:46 AM EDT [facility] Chloride, Plasma 104 97 - 107 mmol/L 03/10/2025 2:46 AM EDT [facility] CO2, Plasma 21(L) 22 - 29 mmol/L 03/10/2025 2:46 AM EDT [facility] Anion Gap 11 6 - 16 mmol/L 03/10/2025 2:46 AM EDT [facility] Total Calcium, Plasma 7.2(L) 8.9 - 10.2 mg/dL 03/10/2025 2:46 AM EDT [facility] Total Protein 4.1(L) 6.3 - 7.9 g/dL 03/10/2025 2:46 AM EDT [facility] Albumin, Plasma 2.0(L) 3.5 - 5.2 g/dL 03/10/2025 2:46 AM EDT [facility] AST, Plasma 17 10 - 50 U/L 03/10/2025 2:46 AM EDT [facility] ALT, Plasma 11 10 - 50 U/L 03/10/2025 2:46 AM EDT [facility] Alkaline Phosphatase, Plasma 75 40 - 115 U/L 03/10/2025 2:46 AM EDT [facility] Total Bilirubin, Plasma 0.3 0.2 - 1.1 mg/dL 03/10/2025 2:46 AM EDT [facility] eGFRcr 15.1 mL/min/1.7 3m*2 03/10/2025 2:46 AM EDT [facility] Comment:Reported eGFRcr in m L/min/1.73m2 is based the CKD-EPI 2020 equation that does not use a race coefficient. Blood Venous blood specimen / Unknown Venipuncture / Unknown 03/10/2025 2:04 AM EDT 03/10/2025 2:14 AM EDT us Harish Baer MD LAB BLOOD ORDERABLES Final Resu lt [facility] [address] [place] [address] * Hepatitis panel, acute (03/10/2025 2:04 AM EDT) Hepatitis B Surf Antigen Negative Negative 03/10/2025 3:44 AM EDT [facility] Hepatitis C Antibody Negative Negative 03/10/2025 3:44 AM EDT [facility] Hepatitis A Antibody IgM Negative Negative 03/10/2025 3:44 AM EDT [facility] Hepatitis B Core Antibody IgM Negative Negative 03/10/2025 3:44 AM EDT [facility] Blood Venous blood specimen / Unknown Venipuncture / Unknown 03/10/2025 2:04 AM EDT 03/10/2025 2:13 AM EDT us Harish Baer MD LAB BLOOD ORDERABLES Final Resu lt Performing Organization Address City/[facility] Co de Phone Number [facility] [address] [place] [address] * (ABNORMAL) POCT glucose meter (03/09/2025 9:00 PM EDT) [facility] POCT Glucose 230(H) 74 - 99 mg/dL [...] Comment 03/09/2025 9:01 PM EDT [facility] Pulmonologist Intensivist ID Mattie Brandt 03/09/2025 9:01 PM EDT [facility] Device ID [id number] 03/09/2025 9:01 PM EDT [facility] Specimen Type POC Capillary 03/09/2025 9:01 PM EDT [facility] Blood Capillary blood specimen / Unknown 03/09/2025 9:00 PM EDT 03/09/2025 9:01 PM EDT Harish Baer MD LAB POINT OF CARE TE ST DOCKED DEVICE UNSOLICITED RESULTS Final Result Performing Organization Address [facility] Co de Phone Number [facility] [address] [place] [address] * Thrombospondin Type-1 Domain-Containing 7A Antibodies, S (03/09/2025 5:32 PM EDT) [facility] THSD7A Ab, S Negative Negative 03/14/2025 2:26 PM EDT [facility] ([place]) Comment: ADDITIONAL INFORMATION This test was developed and its performance characteristics determined by [facility] in a manner consistent with CLIA requirements. This test has not been cleared or approved by the U.S. Food and Drug Administration. Test Performed by: [address] [address] [employer]: Иван Mariano Ph.D.; CLIA# [id number] Blood Venous blood specimen / Unknown Venipuncture / Unknown 03/09/2025 5:32 PM EDT 03/09/2025 5:59 PM EDT Harish Baer MD LAB REF LAB BLOOD AND FLUID ORD Final Result Performing Organization Address [facility]/ZIP Co de Phone Number [facility] ([place]) * Phospholipase A2 Receptor, Immunofluorescence, S (03/09/2025 5:32 PM EDT) Pathologist [facility] PLA2R, Immunofluorescence, S Negative Negative 03/14/2025 2:26 PM EDT [facility] ([place]) Comment: PLA2R is Negative ADDITIONAL INFORMATION This test was developed and its performance characteristics determined by [facility] in a manner consistent with CLIA requirements. This test has not been cleared or approved by the U.S. Food and Drug Administration. Test Performed by: [address] [address] [employer]: Иван Mariano Ph.D.; CLIA# [id number] Blood Venous blood specimen / Unknown Venipuncture / Unknown 03/09/2025 5:32 PM EDT 03/09/2025 5:59 PM EDT Harish Baer MD LAB REF LAB BLOOD AND FLUID ORD Final Result Performing Organization Address City/[facility]/ZIP Co de Phone Number [facility] ([place]) * Protein electrophoresis serum, pathologist interpretation (03/09/2025 5:32 PM EDT) Pathologist [facility] Clinical Diagnosis, SPEP Nephrotic Syndrome 03/10/2025 11:18 AM EDT [facility] Interpretation , SPEP There [...] diagnosis or interpretation. 03/10/2025 11:18 AM EDT [facility] Pathologist Signature, SPEP Reviewed by: Sorin Montoya MD 03/10/2025 11:18 AM EDT [facility] LAB CP ASR DISCLAIMER Yes 03/10/2025 11:18 AM EDT [facility] Blood Venous blood specimen / Unknown Venipuncture / Unknown 03/09/2025 5:32 PM EDT 03/09/2025 5:54 PM EDT Harish Baer MD LAB PATHOLOGY ORDERABLES Final Result Performing Organization Address [facility] Co de Phone Number [facility] [address] [place] [address] * (ABNORMAL) Total Protein, Serum (03/09/2025 5:32 PM EDT) Total Protein 4.2(L) 6.2 - 7.7 g/dL 03/09/2025 6:22 PM EDT [facility] Blood Venous blood specimen / Unknown Venipuncture / Unknown 03/09/2025 5:32 PM EDT 03/09/2025 5:53 PM EDT Harish Baer MD LAB BLOOD ORDERABLES Final Resu lt Performing Organization Address City/[facility]/ZIP Co de Phone Number [facility] [address] [place] [address] * (ABNORMAL) Protein Electrophoresis, Serum (03/09/2025 5:32 PM EDT) Albumin Electrophoresis, Serum 2.0(L) 3.6 - 4.7 g/dL 03/10/2025 2:36 AM EDT [facility] Alpha 1 Globulin Electrophoresis, Serum 0.4 0.2 - 0.4 g/dL 03/10/2025 2:36 AM EDT [facility] Alpha 2 Globulin Electrophoresis, Serum 1.0(H) 0.5 - 0.9 g/dL 03/10/2025 2:36 AM EDT [facility] Beta 1 Globulin Electrophoresis, Serum 0.2(L) 0.3 - 0.5 g/dL 03/10/2025 2:36 AM EDT [facility] Beta 2 Globulin Electrophoresis, Serum 0.3 0.2 - 0.5 g/dL 03/10/2025 2:36 AM EDT [facility] Gamma Globulin Electrophoresis, Serum 0.3(L) 0.6 - 1.5 g/dL 03/10/2025 2:36 AM EDT [facility] Interpretation, Serum Protein Electrophoresis Pathology report to follow. 03/10/2025 2:36 AM EDT [facility] Blood Venous blood specimen / Unknown Venipuncture / Unknown 03/09/2025 5:32 PM EDT 03/09/2025 5:54 PM EDT Harish Baer MD LAB BLOOD ORDERABLES Final Resu lt [facility] [address] [place] [address] * Glomerular Basement Membrane Antibody, IgG (03/09/2025 5:32 PM EDT) GBM AB, IGG BY MULTIPLEX BEAD ASSAY 0 0 - 19 AU/mL 03/12/2025 7:37 AM EDT [facility] ([place]) Blood Venous blood specimen / Unknown Venipuncture / Unknown 03/09/2025 5:32 PM EDT 03/09/2025 5:54 PM EDT Narrative [facility] ([employer]) - 03/12/2025 7:37 AM EDT INTERPRETIVE INFORMATION: [...] and assessment of renal prognosis. Performed By: [employer] [address] [place] [address] [employer] Manager: Xavi Queen MD, PhD CLIA Number: [id number] Harish Baer MD LAB BLOOD ORDERABLES Final Resu lt [facility] ([employer]) [address] [place] [address] * Antinuclear Antibody (LC) with HEp-2 Substrate, IgG by IFA (03/09/2025 5:32 PM EDT) LC INTERPRETIVE COMMENT See Note 03/12/2025 11:08 PM EDT [facility] ([employer]) Anti Nuc Ab Screen <1:80 <1:80 03/12/2025 11:08 PM EDT [facility] [employer] ([employer]) Blood Venous blood specimen / Unknown Venipuncture / Unknown 03/09/2025 5:32 PM EDT 03/09/2025 5:54 PM EDT Narrative [facility] [employer] ([employer]) - 03/12/2025 11:08 PM EDT Clinical Interpretation: [...] not necessarily rule out SARD. Performed By: [employer] [address] [place] [address] [employer] Sales Manager: Xavi Queen MD, PhD CLIA Number: [id number] Harish Baer MD LAB BLOOD ORDERABLES Final Resu lt Performing Organization Address [facility]/ZIP Co de Phone Number [facility] [address] [place] [address] * Primary Membranous Nephropathy Diagnostic [place], S (SO) (03/09/2025 5:32 PM EDT) [facility] Phospholipase A2 Receptor GIOVANNI,S <2 RU/mL 03/14/2025 11:46 AM EDT [facility] ([place]) Comment: REFERENCE VALUE <14 RU/mL: Negative >=14 to <20 RU/mL: Borderline >=20 RU/mL: Positive Test Performed by: [place] [address] [employer]: Иван Mariano Ph.D.; CLIA# [id number] Blood Venous blood specimen / Unknown Venipuncture / Unknown 03/09/2025 5:32 PM EDT 03/09/2025 5:59 PM EDT Harish Baer MD LAB REF LAB BLOOD AND FLUID ORD Final Result [facility] [employer]) * (ABNORMAL) POCT glucose meter (03/09/2025 5:25 PM EDT) Pathologist [facility] POCT Glucose 206(H) 74 - 99 mg/dL [...] Comment 03/09/2025 5:26 PM EDT [facility] Pulmonologist Intensivist ID Al Benito 03/09/20 5:26 PM EDT [facility] Device ID [id number] 03/09/2025 5:26 PM EDT [facility] Specimen Type POC Capillary 03/09/2025 5:26 PM EDT [facility] Blood Capillary blood specimen / Unknown 03/09/2025 5:25 PM EDT 03/09/2025 5:26 PM EDT Harish Baer MD LAB POINT OF CARE TE ST DOCKED DEVICE UNSOLICITED RESULTS Final Result Performing Organization Address City/State/[facility] Co de Phone Number [facility] [address] [place] [address] * CT Abdomen Pelvis wo IV Contrast [...] for testing. Comment 03/09/2025 1:16 PM EDT [facility] Pulmonologist Intensivist ID Gwen Gongora 03/09/20 1:16 PM EDT [facility] Device ID [id number] 03/09/2025 1:16 PM EDT [facility] Specimen Type POC Capillary 03/09/2025 1:16 PM EDT [facility] Blood Capillary blood specimen / Unknown 03/09/2025 1:15 PM EDT 03/09/2025 1:16 PM EDT Harish Baer MD LAB POINT OF CARE TE ST DOCKED DEVICE UNSOLICITED RESULTS Final Result Performing Organization Address [facility] Co de Phone Number [facility] [address] [place] [address] * (ABNORMAL) POCT glucose meter (03/09/2025 7:58 [...] Comment 03/09/2025 8:00 AM EDT [facility] Pulmonologist Intensivist ID Al Benito 03/09/20 8:00 AM EDT [facility] Device ID [id number] 03/09/2025 8:00 AM EDT [facility] Specimen Type POC Capillary 03/09/2025 8:00 AM EDT [facility] Blood Capillary blood specimen / Unknown 03/09/2025 7:58 AM EDT 03/09/2025 8:00 AM EDT us Harish Baer MD LAB POINT OF CARE TE ST DOCKED DEVICE UNSOLICITED RESULTS Final Result Performing Organization Address City/[facility]/ZIP Co de Phone Number [facility] [address] [place] [address] * (ABNORMAL) POCT glucose meter (03/09/2025 3:38 [...] Comment 03/09/2025 3:41 AM EDT [facility] Pulmonologist Intensivist ID Ruthie Singh 03/09/20 3:41 AM EDT [facility] Device ID [id number] 03/09/2025 3:41 AM EDT [facility] Specimen Type POC Capillary 03/09/2025 3:41 AM EDT [facility] Blood Capillary blood specimen / Unknown 03/09/2025 3:38 AM EDT 03/09/2025 3:41 AM EDT us Harish Baer MD LAB POINT OF CARE TE ST DOCKED DEVICE UNSOLICITED RESULTS Final Result Performing Organization Address City/[facility]/ZIP Co de Phone Number [facility] [address] [place] [address] * Rheumatoid factor, Plasma (03/09/2025 12:33 AM EDT) Rheumatoid Factor, Plasma <10 <14 IU/mL 03/09/2025 4:59 PM EDT [facility] Blood Venous blood specimen / Unknown Venipuncture / Unknown 03/09/2025 12:33 AM EDT 03/09/2025 12:51 AM EDT us Harish Baer MD LAB BLOOD ORDERABLES Final Resu lt [facility] [address] [place] [address] * C4 complement (03/09/2025 12:33 AM EDT) C4 Complement 25 13 - 36 mg/dL 03/09/2025 5:00 PM EDT [facility] Blood Venous blood specimen / Unknown Venipuncture / Unknown 03/09/2025 12:33 AM EDT 03/09/2025 12:52 AM EDT us Harish Baer MD LAB BLOOD ORDERABLES Final Resu lt [facility] [address] [place] [address] * C3 complement (03/09/2025 12:33 AM EDT) C3 Complement 115 84 - 166 mg/dL 03/09/2025 5:00 PM EDT [facility] Blood Venous blood specimen / Unknown Venipuncture / Unknown 03/09/2025 12:33 AM EDT 03/09/2025 12:52 AM EDT Harish Baer MD LAB BLOOD ORDERABLES Final Resu lt Performing Organization Address [facility]/ZIP Co de Phone Number [facility] [address] [place] [address] * (ABNORMAL) CBC W/O Differential (03/09/2025 12:33 AM EDT) Pathologist [facility] WBC Count 4.01 3.70 - 10.30 10*3/uL LAB HEMATOLOGY METHOD 03/09/2025 1:55 AM EDT [facility] RBC Count 2.86(L) 4.60 - 6.10 10*6/uL LAB HEMATOLOGY METHOD 03/09/2025 1:55 AM EDT [facility] HGB 8.8(L) 13.7 - 17.5 g/dL LAB HEMATOLOGY METHOD 03/09/2025 1:55 AM EDT [facility] HCT 25.7(L) 40.0 - 51.0 % LAB HEMATOLOGY METHOD 03/09/2025 1:55 AM EDT [facility] Platelet Count 163 155 - 369 10*3/uL LAB HEMATOLOGY METHOD 03/09/2025 1:55 AM EDT [facility] MCV 90 79 - 98 fL LAB HEMATOLOGY METHOD 03/09/2025 1:55 AM EDT [facility] MCH 30.8 26.0 - 32.0 pg LAB HEMATOLOGY METHOD 03/09/2025 1:55 AM EDT [facility] MCHC 34.2 30.7 - 35.5 g/dL LAB HEMATOLOGY METHOD 03/09/2025 1:55 AM EDT [facility] RDW 13.1 11.5 - 14.5 % LAB HEMATOLOGY METHOD 03/09/2025 1:55 AM EDT [facility] MPV 10.0 8.8 - 12.5 fL LAB HEMATOLOGY METHOD 03/09/2025 1:55 AM EDT [facility] nRBC 0.0 <=0.0 per 100 WBCs LAB HEMATOLOGY METHOD 03/09/2025 1:55 AM EDT [facility] Blood Venous blood specimen / Unknown Venipuncture / Unknown 03/09/2025 12:33 AM EDT 03/09/2025 12:54 AM EDT us Harish Baer MD LAB BLOOD ORDERABLES Final Resu lt Performing Organization Address City/[facility]/ZIP Co de Phone Number [facility] [address] [place] [address] * (ABNORMAL) Cystatin C (03/09/2025 12:33 AM EDT) Cystatin C 3.11(H) 0.61 - 0.95 mg/L 03/09/2025 1:25 AM EDT [facility] Blood Venous blood specimen / Unknown Venipuncture / Unknown 03/09/2025 12:33 AM EDT 03/09/2025 12:51 AM EDT us Harish Baer MD LAB BLOOD ORDERABLES Final Resu lt Performing Organization Address City/[facility]/ZIP Co de Phone Number [facility] [address] [place] [address] * (ABNORMAL) C-Reactive Protein, Plasma (03/09/2025 12:33 AM EDT) CRP, Plasma 39.3(H) <=8.0 mg/L 03/09/2025 1:25 AM EDT [facility] Blood Venous blood specimen / Unknown Venipuncture / Unknown 03/09/2025 12:33 AM EDT 03/09/2025 12:51 AM EDT Narrative [facility] - 03/09/2025 1:25 AM EDT This CRP test is appropriate for assessment of infection, systemic inflammation and/or tissue injury. To assess cardiovascular disease risk order high sensitivity CRP (CRPH). us Harish Baer MD LAB BLOOD ORDERABLES Final Resu lt Performing Organization Address City/[facility]/ZIP Co de Phone Number [facility] [address] [place] [address] * Phosphorus, Plasma (03/09/2025 12:33 AM EDT) Phosphorus, Plasma 2.9 2.5 - 4.5 mg/dL 03/09/2025 1:19 AM EDT [facility] Blood Venous blood specimen / Unknown Venipuncture / Unknown 03/09/2025 12:33 AM EDT 03/09/2025 12:52 AM EDT us Harish Baer MD LAB BLOOD ORDERABLES Final Resu lt Performing Organization Address [facility]/ZIP Co de Phone Number [facility] [address] [place] [address] * (ABNORMAL) Magnesium, Plasma (03/09/2025 12:33 AM EDT) Magnesium, Plasma 1.8(L) 1.9 - 2.4 mg/dL 03/09/2025 1:25 AM EDT [facility] Blood Venous blood specimen / Unknown Venipuncture / Unknown 03/09/2025 12:33 AM EDT 03/09/2025 12:51 AM EDT us Harish Baer MD LAB BLOOD ORDERABLES Final Resu lt Performing Organization Address [facility]/ZIP Co de Phone Number [facility] [address] [place] [address] * (ABNORMAL) Comprehensive Metabolic Panel, Plasma (03/09/2025 12:33 AM EDT) Glucose, Plasma 202(H) 74 - 99 mg/dL 03/09/2025 1:25 AM EDT [facility] BUN, Plasma 34(H) 8 - 23 mg/dL 03/09/2025 1:25 AM EDT [facility] Creatinine, Plasma 3.32(H) 0.70 - 1.20 mg/dL 03/09/2025 1:25 AM EDT [facility] BUN/Creatinine Ratio 10 03/09/2025 1:25 AM EDT [facility] Sodium, Plasma 133(L) 136 - 145 mmol/L 03/09/2025 1:25 AM EDT [facility] Potassium, Plasma 3.5(L) 3.6 - 4.9 mmol/L 03/09/2025 1:25 AM EDT [facility] Chloride, Plasma 101 97 - 107 mmol/L 03/09/2025 1:25 AM EDT [facility] CO2, Plasma 22 22 - 29 mmol/L 03/09/2025 1:25 AM EDT [facility] Anion Gap 10 6 - 16 mmol/L 03/09/2025 1:25 AM EDT [facility] Total Calcium, Plasma 7.2(L) 8.9 - 10.2 mg/dL 03/09/2025 1:25 AM EDT [facility] Total Protein 4.1(L) 6.3 - 7.9 g/dL 03/09/2025 1:25 AM EDT [facility] Albumin, Plasma 1.9(L) 3.5 - 5.2 g/dL 03/09/2025 1:25 AM EDT [facility] AST, Plasma 17 10 - 50 U/L 03/09/2025 1:25 AM EDT [facility] ALT, Plasma 11 10 - 50 U/L 03/09/2025 1:25 AM EDT [facility] Alkaline Phosphatase, Plasma 83 40 - 115 U/L 03/09/2025 1:25 AM EDT [facility] Total Bilirubin, Plasma 0.3 0.2 - 1.1 mg/dL 03/09/2025 1:25 AM EDT [facility] eGFRcr 17.7 mL/min/1.7 3m*2 03/09/2025 1:25 AM EDT [facility] Comment:Reported eGFRcr in m L/min/1.73m2 is based the CKD-EPI 2020 equation that does not use a race coefficient. Blood Venous blood specimen / Unknown Venipuncture / Unknown 03/09/2025 12:33 AM EDT 03/09/2025 12:51 AM EDT Harish Baer MD LAB BLOOD ORDERABLES Final Resu lt Performing Organization Address [facility] de Phone Number [facility] [address] [place] [address] * (ABNORMAL) PTH, intact (03/09/2025 12:33 AM EDT) PTH Intact Total 220(H) 9 - 77 pg/mL 03/09/2025 11:15 AM EDT [facility] Blood Venous blood specimen / Unknown Venipuncture / Unknown 03/09/2025 12:33 AM EDT 03/09/2025 1:08 AM EDT Narrative [facility] - 03/09/2025 11:15 AM EDT Assay performed by immunoassay at the [facility]. Performed on [employer] chemiluminescent immunoassay, tractable to the World Health Organization's first international standard for PTH from the [facility], Code 79/500. Results obtained from different test methods or kits cannot be used interchangeably. Harish Baer MD LAB BLOOD ORDERABLES Final Resu lt Performing Organization Address City/[facility] Co de Phone Number [place] [phone] * Prostate Cancer Screen, PSA Total (03/09/2025 12:33 AM EDT) Pathologist [facility] Prostate Cancer Screen, Serum 2.11 0.00 - 6.50 ng/mL 03/09/2025 1:30 AM EDT [facility] Blood Venous blood specimen / Unknown Venipuncture / Unknown 03/09/2025 12:33 AM EDT 03/09/2025 12:52 AM EDT Narrative [facility] - 03/09/2025 1:30 AM EDT Performed by [employer] electrochemiluminescent immunoassay which is standardized against the PSA [place] Reference Standard (WHO 96/670). Results obtained with different test methods or kits cannot be used interchangeably. us Harish Baer MD LAB BLOOD ORDERABLES Final Resu lt Performing Organization Address [facility] de Phone Number [facility] [address] [place] [address] * (ABNORMAL) Iron & Total Iron Binding Capacity, Plasma (Includes Transferrin) (03/09/2025 12:33 AM EDT) Iron, Plasma 34(L) 50 - 170 ug/dL 03/09/2025 1:25 AM EDT [facility] Transferrin, Plasma 103(L) 200 - 360 mg/dL 03/09/2025 1:25 AM EDT [facility] Total Iron Binding Capacity, Plasma 129(L) 240 - 450 ug/mL 03/09/2025 1:25 AM EDT [facility] Transferrin Saturation 26 14 - 50 % 03/09/2025 1:25 AM EDT [facility] Blood Venous blood specimen / Unknown Venipuncture / Unknown 03/09/2025 12:33 AM EDT 03/09/2025 12:51 AM EDT us Harish Baer MD LAB BLOOD ORDERABLES Final Resu lt Performing Organization Address [facility] de Phone Number [facility] [address] [place] [address] * Schistocyte Smear (03/09/2025 12:33 AM EDT) Schistocytes No Significant Schistocytes or RBC Fragments seen. No Significant Schistocytes or RBC Fragments seen. LAB HEMATOLOGY METHOD 1:55 AM EDT [facility] RBC Morphology Slide Reviewed LAB HEMATOLOGY METHOD 1:55 AM EDT [facility] Blood Venous blood specimen / Unknown Venipuncture / Unknown 03/09/2025 12:33 AM EDT 03/09/2025 12:54 AM EDT us Harish Baer MD LAB BLOOD ORDERABLES Final Resu lt Performing Organization Address [facility] Co de Phone Number [facility] [address] [place] [address] * (ABNORMAL) Prothrombin Time/INR (03/09/2025 12:33 AM EDT) Prothrombin Time 29.8(H) 12.0 - 14.3 sec LAB COAGULATION METHOD 03/09/2025 1:15 AM EDT [facility] INR 2.8(H) 0.9 - 1.1 LAB COAGULATION METHOD 03/09/2025 1:15 AM EDT [facility] Blood Venous blood specimen / Unknown Venipuncture / Unknown 03/09/2025 12:33 AM EDT 03/09/2025 12:47 AM EDT Narrative [facility] - 03/09/2025 1:15 AM EDT OPTIMAL INR RANGES FOR PATIENT ON ORAL ANTICOAGULANT THERAPY Prevention of venous thromboembolism INR 2.0 to 3.0 In patients with heart disease: Atrial fibrillation INR 2.0 to 3.0 Valvular heart disease INR 2.0 to 3.0 Tissue heart valves INR 2.0 to 3.0 Mechanical prosthetic valves INR 2.5 to 3.5 Prevention of recurrent ID INR 2.5 to 3.5 Harish Baer MD LAB BLOOD ORDERABLES Final Resu lt Performing Organization Address [facility] Co de Phone Number [facility] [address] [place] [address] * Vitamin B12, Serum (03/09/2025 12:33 AM EDT) Vitamin B12, Serum 333 210 - 1,033 pg/mL 03/09/2025 1:36 AM EDT [facility] Blood Venous blood specimen / Unknown Venipuncture / Unknown 03/09/2025 12:33 AM EDT 03/09/2025 12:52 AM EDT Harish Baer MD LAB BLOOD ORDERABLES Final Resu lt Performing Organization Address [facility]/ZIP Co de Phone Number [facility] [address] [place] [address] * (ABNORMAL) Folate, Serum (03/09/2025 12:33 AM EDT) Folate, Serum 4.3(L) >4.6 ng/mL 03/09/2025 1:36 AM EDT [facility] Blood Venous blood specimen / Unknown Venipuncture / Unknown 03/09/2025 12:33 AM EDT 03/09/2025 12:52 AM EDT Harish Baer MD LAB BLOOD ORDERABLES Final Resu lt [facility] [address] [place] [address] * Total Protein, 24 Hour Urine (03/08/2025 10:07 PM EDT) Protein, Urine 832 mg/dL 03/08/2025 11:35 PM EDT [facility] Total Protein per day 4,992 mg/day 03/08/2025 11:35 PM EDT [facility] Hours Of Collection 24 HRS 03/08/2025 11:35 PM EDT [facility] Urine, Volume 600 mL 03/08/2025 11:35 PM EDT [facility] Urine Urine specimen obtained by clean catch procedure / Unknown Non-blood Collection / Unknown 03/08/2025 10:07 PM EDT 03/08/2025 10:32 PM EDT Narrative [facility] - 03/08/2025 11:35 PM EDT Reference Range <80 mg/day if bed rest <150 mg/day if ambulatory us Harish Baer MD LAB URINE ORDERABLES Final Resu lt [facility] [address] [place] [address] * (ABNORMAL) Creatinine, 24 Hour Urine (03/08/2025 10:07 PM EDT) Creatinine, Urine 90 mg/dL 03/08/2025 11:11 PM EDT [facility] Creatinine per day, Urine 540(L) 800 - 2,500 mg/d 03/08/2025 11:11 PM EDT [facility] Hours Of Collection 24 HRS 03/08/2025 11:11 PM EDT [facility] Urine, Volume 600 mL 03/08/2025 11:11 PM EDT [facility] Urine Urine specimen obtained by clean catch procedure / Unknown Non-blood Collection / Unknown 03/08/2025 10:07 PM EDT 03/08/2025 10:32 PM EDT us Harish Baer MD LAB URINE ORDERABLES Final Resu lt [facility] [address] [place] [address] * (ABNORMAL) Albumin-creatinine ratio, 24 hr urine (03/08/2025 10:07 PM EDT) Microalbumin, Urine >440.0(H) <1.9 mg/dL 03/08/2025 11:16 PM EDT [facility] Albumin per day 11:16 PM EDT [facility] Comment:Unable to calculate, at least one value is above or below the detection limit. Microalbumin Excretion Rate 03/08/2025 11:16 PM EDT [facility] Comment:Unable to calculate, at least one value is above or below the detection limit. Creatinine, Urine 90 mg/dL 025 11:16 PM EDT [facility] Creatinine, 24H Ur 540(L) 800 - 2,500 mg/d 03/08/2025 11:16 PM EDT [facility] Comment:Unable to calculate, at least one value is above or below the detection limit. Albumin/Creatinin e Ratio 03/08/2025 11:16 PM EDT [facility] Comment:Unable to calculate, at least one value is above or below the detection limit. Hours Of Collection 24 HRS 03/08/2025 11:16 PM EDT [facility] Urine, Volume 600 mL 03/08/2025 11:16 PM EDT [facility] Urine Urine specimen obtained by clean catch procedure / Unknown Non-blood Collection / Unknown 03/08/2025 10:07 PM EDT 03/08/2025 10:32 PM EDT Harish Baer MD LAB URINE ORDERABLES Final Resu lt Performing Organization Address [facility] Co de Phone Number [facility] [address] [place] [address] * (ABNORMAL) POCT glucose meter (03/08/2025 8:15 [...] Comment 03/08/2025 8:16 PM EDT [facility] Pulmonologist Intensivist ID Mattie Brandt 03/08/2025 8:16 PM EDT [facility] Device ID [id number] 03/08/2025 8:16 PM EDT [facility] Specimen Type POC Capillary 03/08/2025 8:16 PM EDT [facility] Blood Capillary blood specimen / Unknown 03/08/2025 8:15 PM EDT 03/08/2025 8:16 PM EDT Harish Baer MD LAB POINT OF CARE TE ST DOCKED DEVICE UNSOLICITED RESULTS Final Result Performing Organization Address [facility] Co de Phone Number [facility] [address] [place] [address] * (ABNORMAL) POCT glucose meter (03/08/2025 5:13 PM EDT) Pathologist [facility] POCT Glucose 204(H) 74 - 99 mg/dL [...] Comment 03/08/2025 5:17 PM EDT [facility] Pulmonologist Intensivist ID Brody Foster 03/08/2025 5:17 PM EDT [facility] Device ID [id number] 03/08/2025 5:17 PM EDT [facility] Specimen Type POC Capillary 03/08/2025 5:17 PM EDT [facility] Blood Capillary blood specimen / Unknown 03/08/2025 5:13 PM EDT 03/08/2025 5:17 PM EDT us Harish Baer MD LAB POINT OF CARE TE ST DOCKED DEVICE UNSOLICITED RESULTS Final Result Performing Organization Address City/[facility]/ZIP Co de Phone Number [facility] [address] [place] [address] * (ABNORMAL) POCT glucose meter (03/08/2025 12:22 PM EDT) [facility] POCT Glucose 226(H) 74 - 99 mg/dL [...] Comment 03/08/2025 12:27 PM EDT [facility] Pulmonologist Intensivist ID Brody Foster 03/08/2025 12:27 PM EDT [facility] Device ID [id number] 03/08/2025 12:27 PM EDT [facility] Specimen Type POC Capillary 03/08/2025 12:27 PM EDT [facility] Blood Capillary blood specimen / Unknown 03/08/2025 12:22 PM EDT 03/08/2025 12:27 PM EDT us Harish Baer MD LAB POINT OF CARE TE ST DOCKED DEVICE UNSOLICITED RESULTS Final Result [facility] [address] [place] [address] * Pulmonary function testing (03/08/2025 10:01 AM EDT) [facility] VUH3HUM 2.49 L 03/08/2025 9:58 AM EDT [facility] PFT FEV1 PRE 1.73 L 03/08/2025 9:58 AM EDT [facility] PFT FEV1/FVC PRE 69.35 % 03/08/2025 9:58 AM EDT [facility] PFT FGO41-28% PRE 1.20 L/s 03/08/2025 9:58 AM EDT [facility] PFT PEF PRE 3.51 L/s 03/08/2025 9:58 AM EDT [facility] PFT Anatomical Region Laterality Modality PFT 03/08/2025 9:38 AM EDT Narrative 03/09/2025 9:42 AM EDT Pulmonary Function Testing Report Owen Salazar underwent pulmonary function testing today at the [facility]. The patient underwent spirometry. All tests were [...] POCT glucose meter (03/08/2025 7:48 AM EDT) [facility] POCT Glucose 156(H) 74 - 99 mg/dL [...] testing. Comment 03/08/2025 7:54 AM EDT [facility] Pulmonologist Intensivist ID Brody Foster 03/08/2025 7:54 AM EDT [facility] Device ID [id number] 03/08/2025 7:54 AM EDT [facility] Specimen Type POC Capillary 03/08/2025 7:54 AM EDT [facility] Blood Capillary blood specimen / Unknown 03/08/2025 7:48 AM EDT 03/08/2025 7:54 AM EDT Harish Baer MD LAB POINT OF CARE TE ST DOCKED DEVICE UNSOLICITED RESULTS Final Result [facility] [address] [place] [id number] * (ABNORMAL) CBC W/O Differential (03/08/2025 6:15 AM EDT) WBC Count 4.93 3.70 - 10.30 10*3/uL LAB HEMATOLOGY METHOD 03/08/2025 6:38 AM EDT [facility] RBC Count 3.21(L) 4.60 - 6.10 10*6/uL LAB HEMATOLOGY METHOD 03/08/2025 6:38 AM EDT [facility] HGB 9.7(L) 13.7 - 17.5 g/dL LAB HEMATOLOGY METHOD 03/08/2025 6:38 AM EDT [facility] HCT 29.5(L) 40.0 - 51.0 % LAB HEMATOLOGY METHOD 03/08/2025 6:38 AM EDT [facility] Platelet Count 172 155 - 369 10*3/uL LAB HEMATOLOGY METHOD 03/08/2025 6:38 AM EDT [facility] MCV 92 79 - 98 fL LAB HEMATOLOGY METHOD 03/08/2025 6:38 AM EDT [facility] MCH 30.2 26.0 - 32.0 pg LAB HEMATOLOGY METHOD 03/08/2025 6:38 AM EDT [facility] MCHC 32.9 30.7 - 35.5 g/dL LAB HEMATOLOGY METHOD 03/08/2025 6:38 AM EDT [facility] RDW 13.2 11.5 - 14.5 % LAB HEMATOLOGY METHOD 03/08/2025 6:38 AM EDT [facility] MPV 10.2 8.8 - 12.5 fL LAB HEMATOLOGY METHOD 03/08/2025 6:38 AM EDT [facility] nRBC 0.0 <=0.0 per 100 WBCs LAB HEMATOLOGY METHOD 03/08/2025 6:38 AM EDT [facility] Blood Venous blood specimen / Unknown Venipuncture / Unknown 03/08/2025 6:15 AM EDT 03/08/2025 6:31 AM EDT us Harish Baer MD LAB BLOOD ORDERABLES Final Resu lt Performing Organization Address [facility]/ZIP Co de Phone Number [facility] [address] [place] [address] * (ABNORMAL) Cystatin C (03/08/2025 6:15 AM EDT) Cystatin C 3.14(H) 0.61 - 0.95 mg/L 03/08/2025 7:03 AM EDT [facility] Blood Venous blood specimen / Unknown Venipuncture / Unknown 03/08/2025 6:15 AM EDT 03/08/2025 6:31 AM EDT us Harish Baer MD LAB BLOOD ORDERABLES Final Resu lt Performing Organization Address [facility]/ZIP Co de Phone Number [facility] [address] [place] [address] * (ABNORMAL) C-Reactive Protein, Plasma (03/08/2025 6:15 AM EDT) CRP, Plasma 35.8(H) <=8.0 mg/L 03/08/2025 7:03 AM EDT [facility] Blood Venous blood specimen / Unknown Venipuncture / Unknown 03/08/2025 6:15 AM EDT 03/08/2025 6:31 AM EDT Narrative [facility] - 03/08/2025 7:03 AM EDT This CRP test is appropriate for assessment of infection, systemic inflammation and/or tissue injury. To assess cardiovascular disease risk order high sensitivity CRP (CRPH). us Harish Baer MD LAB BLOOD ORDERABLES Final Resu lt Performing Organization Address City/[facility]/ZIP Co de Phone Number [facility] [address] [place] [address] * Phosphorus, Plasma (03/08/2025 6:15 AM EDT) Phosphorus, Plasma 3.3 2.5 - 4.5 mg/dL 03/08/2025 7:03 AM EDT [facility] Blood Venous blood specimen / Unknown Venipuncture / Unknown 03/08/2025 6:15 AM EDT 03/08/2025 6:31 AM EDT us Harish Baer MD LAB BLOOD ORDERABLES Final Resu lt Performing Organization Address [facility]/ZIP Co de Phone Number [facility] [address] [place] [address] * Magnesium, Plasma (03/08/2025 6:15 AM EDT) Magnesium, Plasma 2.1 1.9 - 2.4 mg/dL 03/08/2025 7:03 AM EDT [facility] Blood Venous blood specimen / Unknown Venipuncture / Unknown 03/08/2025 6:15 AM EDT 03/08/2025 6:31 AM EDT us Harish Baer MD LAB BLOOD ORDERABLES Final Resu lt Performing Organization Address [facility]/ZIP Co de Phone Number [facility] [address] [place] [address] * (ABNORMAL) Comprehensive Metabolic Panel, Plasma (03/08/2025 6:15 AM EDT) Glucose, Plasma 156(H) 74 - 99 mg/dL 03/08/2025 7:03 AM EDT [facility] BUN, Plasma 33(H) 8 - 23 mg/dL 03/08/2025 7:03 AM EDT [facility] Creatinine, Plasma 3.18(H) 0.70 - 1.20 mg/dL 03/08/2025 7:03 AM EDT [facility] BUN/Creatinine Ratio 10 03/08/2025 7:03 AM EDT [facility] Sodium, Plasma 136 136 - 145 mmol/L 03/08/2025 7:03 AM EDT [facility] Potassium, Plasma 4.1 3.6 - 4.9 mmol/L 03/08/2025 7:03 AM EDT [facility] Chloride, Plasma 108(H) 97 - 107 mmol/L 03/08/2025 7:03 AM EDT [facility] CO2, Plasma 17(L) 22 - 29 mmol/L 03/08/2025 7:03 AM EDT [facility] Anion Gap 11 6 - 16 mmol/L 03/08/2025 7:03 AM EDT [facility] Total Calcium, Plasma 7.6(L) 8.9 - 10.2 mg/dL 03/08/2025 7:03 AM EDT [facility] Total Protein 4.3(L) 6.3 - 7.9 g/dL 03/08/2025 7:03 AM EDT [facility] Albumin, Plasma 1.9(L) 3.5 - 5.2 g/dL 03/08/2025 7:03 AM EDT [facility] AST, Plasma 22 10 - 50 U/L 03/08/2025 7:03 AM T [facility] Comment:Hemolyzed, result ma y be falsely increased. ALT, Plasma 9(L) 10 - 50 U/L 03/08/2025 7:03 AM EDT [facility] Alkaline Phosphatase, Plasma 91 40 - 115 U/L 03/08/2025 7:03 AM EDT [facility] Total Bilirubin, Plasma 0.3 0.2 - 1.1 mg/dL 03/08/2025 7:03 AM T [facility] eGFRcr 18.6 mL/min/1.7 3m*2 03/08/2025 7:03 AM EDT [facility] Comment:Reported eGFRcr in m L/min/1.73m2 is based the CKD-EPI 2020 equation that does not use a race coefficient. Blood Venous blood specimen / Unknown Venipuncture / Unknown 03/08/2025 6:15 AM EDT 03/08/2025 6:31 AM EDT us Harish Baer MD LAB BLOOD ORDERABLES Final Resu lt Performing Organization Address [facility] Co de Phone Number [facility] [address] [place] [address] * (ABNORMAL) D DIMER, QUANTITATIVE (03/08/2025 6:15 AM EDT) D Dimer, Quantitative 0.69(H) <0.50 ug/mL FEU LAB COAGULATION METHOD 03/08/2025 7:14 AM EDT [facility] Blood Venous blood specimen / Unknown Venipuncture / Unknown 03/08/2025 6:15 AM EDT 03/08/2025 6:30 AM EDT Narrative [facility] - 03/08/2025 7:14 AM [...] ORDERABLES Final Resu lt Performing Organization Address [facility] de Phone Number [facility] [address] [place] [address] * Osmolality, Urine (03/07/2025 9:27 PM EDT) Pathologist [facility] Osmolality, Urine 402 50 - 1,200 mOsm/kg 03/07/2025 10:26 PM EDT [facility] Urine Urine specimen obtained by clean catch procedure / Unknown Non-blood Collection / Unknown 03/07/2025 9:27 PM EDT 03/07/2025 9:50 PM EDT us Harish Baer MD LAB URINE ORDERABLES Final Resu lt Performing Organization Address City/[facility]/ZIP Co de Phone Number [facility] [address] [place] [address] * Urea Nitrogen, Random Urine (03/07/2025 9:27 PM EDT) Urea Nitrogen, Urine 384 mg/dL 03/07/2025 11:10 PM EDT [facility] Urine Urine specimen obtained by clean catch procedure / Unknown Non-blood Collection / Unknown 03/07/2025 9:27 PM EDT 03/07/2025 9:50 PM EDT us Harish Baer MD LAB URINE ORDERABLES Final Resu lt Performing Organization Address [facility]/ZIP Co de Phone Number [facility] [address] [place] [address] * Chloride, Random Urine (03/07/2025 9:27 PM EDT) Chloride, Urine 46 mmol/L 11:10 PM EDT [facility] Urine Urine specimen obtained by clean catch procedure / Unknown Non-blood Collection / Unknown 03/07/2025 9:27 PM EDT 03/07/2025 9:50 PM EDT us Harish Baer MD LAB URINE ORDERABLES Final Resu lt Performing Organization Address [facility]/ZIP Co de Phone Number [facility] [address] [place] [address] * Sodium, Random, Urine (03/07/2025 9:27 PM EDT) Sodium, Urine 52 mmol/L 03/07/2025 11:10 PM EDT [facility] Urine Urine specimen obtained by clean catch procedure / Unknown Non-blood Collection / Unknown 03/07/2025 9:27 PM EDT 03/07/2025 9:50 PM EDT us Harish Baer MD LAB URINE ORDERABLES Final Resu lt Performing Organization Address City/[facility]/ZIP Co de Phone Number [facility] [address] [place] [address] * Protein, Random, Urine with Creatinine (03/07/2025 9:27 PM EDT) Protein, Urine 914 mg/dL 03/07/2025 11:34 PM EDT [facility] Creatinine, Urine 86 mg/dL 03/07/2025 11:34 PM EDT [facility] Protein/Creatin ine Ratio 10.6 mg/mg Creat 03/07/2025 11:34 PM EDT [facility] Urine Urine specimen obtained by clean catch procedure / Unknown Non-blood Collection / Unknown 03/07/2025 9:27 PM EDT 03/07/2025 9:50 PM EDT us Harish Baer MD LAB URINE ORDERABLES Final Resu lt Performing Organization Address City/[facility]/ZIP Co de Phone Number [facility] [address] [place] [address] * Potassium, Random, Urine (03/07/2025 9:27 PM EDT) Potassium, Urine 30 mmol/L 03/07/2025 11:10 PM EDT [facility] Urine Urine specimen obtained by clean catch procedure / Unknown Non-blood Collection / Unknown 03/07/2025 9:27 PM EDT 03/07/2025 9:50 PM EDT us Harish Baer MD LAB URINE ORDERABLES Final Resu lt [facility] [address] [place] [address] * (ABNORMAL) Albumin-creatinine ratio, urine, random (03/07/2025 9:27 PM EDT) Microalbumin, Urine >440.0(H) <1.9 mg/dL 03/07/2025 11:10 PM EDT [facility] Creatinine, Urine 86 mg/dL 03/07/2025 11:10 PM EDT [facility] Albumin/Creati nine Ratio 03/07/2025 11:10 PM EDT [facility] Comment:Unable to calculate, at least one value is above or below the detection limit. Urine Urine specimen obtained by clean catch procedure / Unknown Non-blood Collection / Unknown 03/07/2025 9:27 PM EDT 03/07/2025 9:50 PM EDT Harish Baer MD LAB URINE ORDERABLES Final Resu lt Performing Organization Address City/[facility]/ZIP Co de Phone Number [facility] [address] [place] [address] * (ABNORMAL) POCT glucose meter (03/07/2025 8:03 [...] 03/07/2025 8:12 PM EDT [facility] Pulmonologist Intensivist ID Maicol Zapata 8:12 PM EDT [facility] Device ID [id number] 03/07/2025 8:12 PM EDT [facility] Specimen Type POC Capillary 03/07/2025 8:12 PM EDT [facility] Blood Capillary blood specimen / Unknown 03/07/2025 8:03 PM EDT 03/07/2025 8:12 PM EDT us Harish Baer MD LAB POINT OF CARE TE ST DOCKED DEVICE UNSOLICITED RESULTS Final Result Performing Organization Address City/[facility] Co de Phone Number [facility] [address] [place] [address] * US Renal Complete (03/07/2025 7:11 PM [...] Comment 03/07/2025 4:26 PM EDT [facility] Pulmonologist Intensivist ID Vy Davey 03/07/2025 4:26 PM EDT [facility] Device ID [id number] 03/07/2025 4:26 PM EDT [facility] Specimen Type POC Capillary 03/07/2025 4:26 PM EDT [facility] Blood Capillary blood specimen / Unknown 03/07/2025 4:24 PM EDT 03/07/2025 4:26 PM EDT Harish Baer MD LAB POINT OF CARE TE ST DOCKED DEVICE UNSOLICITED RESULTS Final Result Performing Organization Address City/State/[facility] Co de Phone Number [facility] [address] [place], [place] [id number] * ECHO, ADULT TRANSTHORACIC COMPLETE (03/07/2025 1:13 PM EDT) [facility] Height 182 REILLY ISCV Weight 92.5 REILLY ISCV LVIDd 43 mm [facility] ISCV LVIDs 32 mm RE[facility]Y ISCV IVSd 10 mm REILLY ISCV LVPWd 8 mm REILLY ISCV LV MASS(C)D 123 g REILLY ISCV [...] Ao Diam 36 mm [facility] ISCV PA IN(ACCEL) 47.9 mmHg RE[facility]Y ISCV LV mean PG [...] is no recent study available for direct [id number] comparison. Left Ventricle The left ventricle is [...] is no recent study available for direct [id number] comparison. Jason Quezada APRN CV ECHO PROCEDURES Final Resu lt * (ABNORMAL) POCT glucose meter (03/07/2025 11:01 AM EDT) POCT Glucose 126(H) 74 - 99 mg/dL 03/07/2025 11:03 AM EDT [facility] Comment:Accuracy of a glucos e result [...] for testing. Comment 03/07/2025 11:03 AM EDT [facility] Pulmonologist Intensivist ID Shelley Rasmussen 03/07/2025 11:03 AM EDT [facility] Device ID [id number] 03/07/2025 11:03 AM EDT [facility] Specimen Type POC Capillary 03/07/2025 11:03 AM EDT [facility] Blood Capillary blood specimen / Unknown 03/07/2025 11:01 AM EDT 03/07/2025 11:03 AM EDT us Harish Baer MD LAB POINT OF CARE TE ST DOCKED DEVICE UNSOLICITED RESULTS Final Result Performing Organization Address City/[facility]/ZIP Co de Phone Number [facility] [address] [place] [address] * (ABNORMAL) POCT glucose meter (03/07/2025 7:11 [...] for testing. Comment 03/07/2025 7:12 AM EDT [facility] Pulmonologist Intensivist ID Shellye Rasmussen 03/07/2025 7:12 AM EDT [facility] Device ID [id number] 03/07/2025 7:12 AM EDT [facility] Specimen Type POC Capillary 03/07/2025 7:12 AM EDT [facility] Blood Capillary blood specimen / Unknown 03/07/2025 7:11 AM EDT 03/07/2025 7:12 AM EDT us Elgin Key MD LAB POINT OF CARE TE ST DOCKED DEVICE UNSOLICITED RESULTS Final Result Performing Organization Address City/[facility]/ZIP Co de Phone Number [facility] [address] [place] [address] * (ABNORMAL) Cystatin C (03/07/2025 4:43 AM EDT) Cystatin C 2.96(H) 0.61 - 0.95 mg/L 03/07/2025 5:42 PM EDT [facility] Blood Venous blood specimen / Unknown Venipuncture / Unknown 03/07/2025 4:43 AM EDT 03/07/2025 4:56 AM EDT us Harish Baer MD LAB BLOOD ORDERABLES Final Resu lt [facility] [address] [place] [address] * (ABNORMAL) Blood gas panel, venous (03/07/2025 4:43 AM EDT) pH, Venous 7.39 7.32 - 7.43 LAB HEMATOLOGY METHOD 03/07/2025 4:52 AM EDT [facility] pCO2, Venous 30(L) 40 - 55 mmHg LAB HEMATOLOGY METHOD 03/07/2025 4:52 AM EDT [facility] pO2, Venous 59(H) 25 - 40 mmHg LAB HEMATOLOGY METHOD 03/07/2025 4:52 AM EDT [facility] SO2, Measured, Venous 91(H) 65 - 80 % LAB HEMATOLOGY METHOD 03/07/2025 4:52 AM EDT [facility] Base Excess, Venous -6.1(L) -2.0 - 3.0 mmol/L LAB HEMATOLOGY METHOD 03/07/2025 4:52 AM EDT [facility] Bicarbonate, Calculated, Venous 18(L) 22 - 26 mmol/L LAB HEMATOLOGY METHOD 03/07/2025 4:52 AM EDT [facility] Hematocrit, Whole Blood 29.9(L) 40.0 - 51.0 % LAB HEMATOLOGY METHOD 03/07/2025 4:52 AM EDT [facility] Sodium, Whole Blood 136 136 - 145 mmol/L LAB HEMATOLOGY METHOD 03/07/2025 4:52 AM EDT [facility] Potassium, Whole Blood 4.0 3.6 - 4.9 mmol/L LAB HEMATOLOGY METHOD 03/07/2025 4:52 AM EDT [facility] Chloride, Whole Blood 111(H) 97 - 107 mmol/L LAB HEMATOLOGY METHOD 03/07/2025 4:52 AM EDT [facility] Glucose, Whole Blood 156(H) 74 - 99 mg/dL LAB HEMATOLOGY METHOD 03/07/2025 4:52 AM EDT [facility] Lactate, Venous, Whole Blood 0.9 0.5 - 2.2 mmol/L LAB HEMATOLOGY METHOD 03/07/2025 4:52 AM EDT [facility] Ionized Calcium, Whole Blood 4.4(L) 4.6 - 5.1 mg/dL LAB HEMATOLOGY METHOD 03/07/2025 4:52 AM EDT [facility] Blood Venous blood specimen / Unknown Venipuncture / Unknown 03/07/2025 4:43 AM EDT 03/07/2025 4:50 AM EDT us Jason Quezada APRN LAB BLOOD ORDERABLES Final Re sult Performing Organization Address [facility]/ZIP Co de Phone Number [facility] [address] [place] [address] * Folate, Serum (03/07/2025 4:43 AM EDT) Folate, Serum 6.1 >4.6 ng/mL 03/07/2025 5:39 AM EDT [facility] Blood Venous blood specimen / Unknown Venipuncture / Unknown 03/07/2025 4:43 AM EDT 03/07/2025 4:56 AM EDT us Jason Quezada APRN LAB BLOOD ORDERABLES Final Re sult Performing Organization Address [facility] Co de Phone Number [facility] [address] [place] [address] * Vitamin B12, Serum (03/07/2025 4:43 AM EDT) Vitamin B12, Serum 326 210 - 1,033 pg/mL 03/07/2025 5:41 AM EDT [facility] Blood Venous blood specimen / Unknown Venipuncture / Unknown 03/07/2025 4:43 AM EDT 03/07/2025 4:56 AM EDT us Jason Quezada APRN LAB BLOOD ORDERABLES Final Re sult [facility] [address] [place] [address] * (ABNORMAL) Prothrombin Time/INR (03/07/2025 4:43 AM EDT) Prothrombin Time 17.0(H) 12.0 - 14.3 sec 03/07/2025 5:05 AM EDT [facility] INR 1.4(H) 0.9 - 1.1 03/07/2025 5:05 AM EDT [facility] Blood Venous blood specimen / Unknown Venipuncture / Unknown 03/07/2025 4:43 AM EDT 03/07/2025 4:52 AM EDT Narrative [facility] - 03/07/2025 5:05 AM EDT OPTIMAL INR RANGES FOR PATIENT ON ORAL ANTICOAGULANT THERAPY Prevention of venous thromboembolism INR 2.0 to 3.0 In patients with heart disease: Atrial fibrillation INR 2.0 to 3.0 Valvular heart disease INR 2.0 to 3.0 Tissue heart valves INR 2.0 to 3.0 Mechanical prosthetic valves INR 2.5 to 3.5 Prevention of recurrent ID INR 2.5 to 3.5 us Jason Quezada APRN LAB BLOOD ORDERABLES Final Re sult Performing Organization Address City/[facility]/ZIP Co de Phone Number [facility] [address] [place] [address] * Magnesium, Plasma (03/07/2025 4:43 AM EDT) Magnesium, Plasma 2.2 1.9 - 2.4 mg/dL 03/07/2025 5:26 AM EDT [facility] Blood Venous blood specimen / Unknown Venipuncture / Unknown 03/07/2025 4:43 AM EDT 03/07/2025 4:56 AM EDT Jason Quezada CAPTION WRITER LAB BLOOD ORDERABLES Final Re sult [facility] [address] [place] [address] * (ABNORMAL) Renal Function Panel, Plasma (03/07/2025 4:43 AM EDT) Glucose, Plasma 170(H) 74 - 99 mg/dL 03/07/2025 5:26 AM EDT [facility] BUN, Plasma 37(H) 8 - 23 mg/dL 03/07/2025 5:26 AM EDT [facility] Creatinine, Plasma 3.38(H) 0.70 - 1.20 mg/dL 03/07/2025 5:26 AM EDT [facility] BUN/Creatinine Ratio 11 03/07/2025 5:26 AM EDT [facility] Sodium, Plasma 140 136 - 145 mmol/L 03/07/2025 5:26 AM EDT [facility] Potassium, Plasma 4.3 3.6 - 4.9 mmol/L 03/07/2025 5:26 AM EDT [facility] Chloride, Plasma 111(H) 97 - 107 mmol/L 03/07/2025 5:26 AM EDT [facility] CO2, Plasma 16(L) 22 - 29 mmol/L 03/07/2025 5:26 AM EDT [facility] Anion Gap 13 6 - 16 mmol/L 03/07/2025 5:26 AM EDT [facility] Total Calcium, Plasma 7.6(L) 8.9 - 10.2 mg/dL 03/07/2025 5:26 AM EDT [facility] Phosphorus, Plasma 3.3 2.5 - 4.5 mg/dL 03/07/2025 5:26 AM EDT [facility] Albumin, Plasma 2.0(L) 3.5 - 5.2 g/dL 03/07/2025 5:26 AM EDT [facility] eGFRcr 17.3 mL/min/1.7 3m*2 03/07/2025 5:26 AM EDT [facility] Comment:Reported eGFRcr in m L/min/1.73m2 is based the CKD-EPI 2020 equation that does not use a race coefficient. Blood Venous blood specimen / Unknown Venipuncture / Unknown 03/07/2025 4:43 AM EDT 03/07/2025 4:56 AM EDT us Jason Quezada CAPTION WRITER LAB BLOOD ORDERABLES Final Re sult [facility] [address] [place] [address] * (ABNORMAL) CBC W/O Differential (03/07/2025 4:43 AM EDT) WBC Count 4.53 3.70 - 10.30 10*3/uL LAB HEMATOLOGY METHOD 03/07/2025 4:55 AM EDT [facility] RBC Count 3.14(L) 4.60 - 6.10 10*6/uL LAB HEMATOLOGY METHOD 03/07/2025 4:55 AM EDT [facility] HGB 9.5(L) 13.7 - 17.5 g/dL LAB HEMATOLOGY METHOD 03/07/2025 4:55 AM EDT [facility] HCT 28.5(L) 40.0 - 51.0 % LAB HEMATOLOGY METHOD 03/07/2025 4:55 AM EDT [facility] Platelet Count 158 155 - 369 10*3/uL LAB HEMATOLOGY METHOD 03/07/2025 4:55 AM EDT [facility] MCV 91 79 - 98 fL LAB HEMATOLOGY METHOD 03/07/2025 4:55 AM EDT [facility] MCH 30.3 26.0 - 32.0 pg LAB HEMATOLOGY METHOD 03/07/2025 4:55 AM EDT [facility] MCHC 33.3 30.7 - 35.5 g/dL LAB HEMATOLOGY METHOD 03/07/2025 4:55 AM EDT [facility] RDW 13.3 11.5 - 14.5 % LAB HEMATOLOGY METHOD 03/07/2025 4:55 AM EDT [facility] MPV 10.1 8.8 - 12.5 fL LAB HEMATOLOGY METHOD 03/07/2025 4:55 AM EDT [facility] nRBC 0.0 <=0.0 per 100 WBCs LAB HEMATOLOGY METHOD 03/07/2025 4:55 AM EDT [facility] Blood Venous blood specimen / Unknown Venipuncture / Unknown 03/07/2025 4:43 AM EDT 03/07/2025 4:51 AM EDT Jason Quezada APRN LAB BLOOD ORDERABLES Final Re sult Performing Organization Address City/[facility]/ZIP Co de Phone Number [facility] [address] [place] [address] * Ferritin, Serum (03/07/2025 4:43 AM EDT) Ferritin, Serum 132 20 - 400 ng/mL 03/07/2025 5:41 AM EDT [facility] Blood Venous blood specimen / Unknown Venipuncture / Unknown 03/07/2025 4:43 AM EDT 03/07/2025 4:56 AM EDT Jason Quezada APRN LAB BLOOD ORDERABLES Final Re sult Performing Organization Address [facility] Co de Phone Number [facility] [address] [place] [address] * ECG Adult (03/07/2025 3:48 AM EDT) Pathologist [facility] EKG DIAGNOSIS CLASS Abnormal MUSE ECG Ventricular Rate 98 BPM MUSE ECG Atrial Rate 98 BPM MUSE ECG IN Interval 180 ms MUSE ECG QRSD Interval 84 ms MUSE ECG QT Interval 340 ms MUSE ECG QTC Interval 434 ms MUSE ECG P [place] 56 degrees MUSE ECG R [place] -43 degrees MUSE ECG T Wave [place] 63 degrees MUSE ECG Diagnosis Sinus rhythm with premature supraventricular complexes MUSE ECG Diagnosis Left axis deviation MUSE ECG Diagnosis Poor R-wave progression MUSE ECG Diagnosis Abnormal ECG MUSE ECG Diagnosis MUSE ECG Diagnosis Confirmed by Yoan Connors ([id number]) on 03/07/2025 5:41:06 AM MUSE ECG 03/07/2025 3:48 AM EDT 03/07/2025 5:41 AM EDT Jason Quezada APRN ECG ORDERABLES Final Result Performing Organization Address [facility] Co de Phone Number MUSE ECG * [...] Comment 03/07/2025 2:09 AM EDT [facility] Pulmonologist Intensivist ID Jemal Angel 03/07/2025 2:09 AM EDT [facility] Device ID [id number] 03/07/2025 2:09 AM EDT [facility] Specimen Type POC Capillary 03/07/2025 2:09 AM EDT [facility] Blood Capillary blood specimen / Unknown 03/07/2025 2:08 AM EDT 03/07/2025 2:09 AM EDT us Elgin Key MD LAB POINT OF CARE TE ST DOCKED DEVICE UNSOLICITED RESULTS Final Result Performing Organization Address [facility] Co de Phone Number [facility] [address] [place] [address] * Urinalysis Microscopic Examination (03/07/2025 2:00 AM EDT) Urine Urine specimen obtained by clean catch procedure / Unknown Non-blood Collection / Unknown 03/07/2025 2:00 AM EDT 03/07/2025 2:06 AM EDT us Jason Quezada APRN LAB URINE ORDERABLES Final Re sult Performing Organization Address City/[facility] Co de Phone Number [facility] [address] [place] [address] * Urea Nitrogen, Random Urine (03/07/2025 2:00 AM EDT) Urea Nitrogen, Urine 375 mg/dL 03/07/2025 2:59 AM EDT [facility] Urine Urine specimen obtained by clean catch procedure / Unknown Non-blood Collection / Unknown 03/07/2025 2:00 AM EDT 03/07/2025 2:16 AM EDT Jason Quezada CAPTION WRITER LAB URINE ORDERABLES Final Re sult Performing Organization Address City/[facility]/ZIP Co de Phone Number [facility] [address] [place] [address] * Protein, Random, Urine with Creatinine (03/07/2025 2:00 AM EDT) Protein, Urine 843 mg/dL 03/07/2025 3:25 AM EDT [facility] Creatinine, Urine 82 mg/dL 03/07/2025 3:25 AM EDT [facility] Protein/Creatin ine Ratio 10.3 mg/mg Creat 03/07/2025 3:25 AM EDT [facility] Urine Urine specimen obtained by clean catch procedure / Unknown Non-blood Collection / Unknown 03/07/2025 2:00 AM EDT 03/07/2025 2:16 AM EDT Jason Quezada CAPTION WRITER LAB URINE ORDERABLES Final Re sult Performing Organization Address City/[facility]/ZIP Co de Phone Number [facility] [address] [place] [address] * Sodium, Random, Urine (03/07/2025 2:00 AM EDT) Sodium, Urine 50 mmol/L 03/07/2025 3:05 AM EDT [facility] Urine Urine specimen obtained by clean catch procedure / Unknown Non-blood Collection / Unknown 03/07/2025 2:00 AM EDT 03/07/2025 2:16 AM EDT Jason Quezada CAPTION WRITER LAB URINE ORDERABLES Final Re sult Performing Organization Address City/[facility]/ZIP Co de Phone Number [facility] [address] [place] [address] * (ABNORMAL) Urinalysis with reflex microscopic (Culture NOT Included) (03/07/2025 2:00 AM EDT) Color, Urine Yellow LAB URINALYSIS - AUTOMATED METHOD 03/07/2025 2:31 AM EDT [facility] Clarity, Urine Clear LAB URINALYSIS - AUTOMATED METHOD 03/07/2025 2:31 AM EDT [facility] Spec [place], Urine 1.023 1.005 - 1.030 LAB URINALYSIS - AUTOMATED METHOD 03/07/2025 2:31 AM EDT [facility] pH, Urine 6.5 5.0 - 8.0 LAB URINALYSIS - AUTOMATED METHOD 03/07/2025 2:31 AM EDT [facility] Protein, Urine >=300(A) Negative mg/dL LAB URINALYSIS - AUTOMATED METHOD 03/07/2025 2:31 AM EDT [facility] Glucose, Urine >=1000(A) Negative mg/dL LAB URINALYSIS - AUTOMATED METHOD 03/07/2025 2:31 AM EDT [facility] Ketones, Urine Negative Negative mg/dL LAB URINALYSIS - AUTOMATED METHOD 03/07/2025 2:31 AM EDT [facility] Blood, Urine Small(A) Negative LAB URINALYSIS - AUTOMATED METHOD 03/07/2025 2:31 AM EDT [facility] Bilirubin, Urine Negative Negative LAB URINALYSIS - AUTOMATED METHOD 03/07/2025 2:31 AM EDT [facility] Urobilinogen, Urine 0.2 0.2 to 1.0 mg/dL LAB URINALYSIS - AUTOMATED METHOD 03/07/2025 2:31 AM T [facility] Leukocytes, Urine Negative Negative LAB URINALYSIS - AUTOMATED METHOD 03/07/2025 2:31 AM T [facility] Nitrite, Urine Negative Negative LAB URINALYSIS - AUTOMATED METHOD 03/07/2025 2:31 AM EDT [facility] RBC, Urine 3 0 to 3 /HPF LAB URINALYSIS - AUTOMATED METHOD 03/07/2025 2:31 AM EDT [facility] Comment:This result was prev iously suppressed from the chart. WBC, Urine 0 - 5 0 to 5 /HPF LAB URINALYSIS - AUTOMATED METHOD 03/07/2025 2:31 AM EDT [facility] Comment:This result was prev iously suppressed from the chart. Squamous Epithelial Cells 0 - 2 0 to 5 /HPF LAB URINALYSIS - AUTOMATED METHOD 03/07/2025 2:31 AM EDT [facility] Comment:This result was prev iously suppressed from the chart. Hyaline Casts 0 - 2 0 to 5 /LPF LAB URINALYSIS - AUTOMATED METHOD 03/07/2025 2:31 AM EDT [facility] Comment:This result was prev iously suppressed from the chart. Bacteria, Urine Negative Negative LAB URINALYSIS - AUTOMATED METHOD 03/07/2025 2:31 AM EDT [facility] Comment:This result was prev iously suppressed from the chart. Urine Urine specimen obtained by clean catch procedure / Unknown Non-blood Collection / Unknown 03/07/2025 2:00 AM EDT 03/07/2025 2:06 AM EDT us Jason Quezada CAPTION WRITER LAB URINE ORDERABLES Final Re sult [facility] [address] [place] [address] * Drug Abuse Screen, Urine (03/07/2025 2:00 AM EDT) Amphetamine Screen Urine Negative Cutoff: 500 ng/mL 03/07/2025 2:48 AM EDT [facility] Benzodiazepines Screen Urine Negative Cutoff: 200 ng/mL 03/07/2025 2:48 AM EDT [facility] Cannabinoid Screen Urine Negative Cutoff: 50 ng/mL 03/07/2025 2:48 AM EDT [facility] Cocaine Screen Urine Negative Cutoff: 300 ng/mL 03/07/2025 2:48 AM EDT [facility] Barbiturate Screen Urine Negative Cutoff: 200 ng/mL 03/07/2025 2:48 AM EDT [facility] Opiate Screen Urine Negative Cutoff: 300 ng/mL 03/07/2025 2:48 AM EDT [facility] Methadone Screen Urine Negative Cutoff: 300 ng/mL 03/07/2025 2:48 AM EDT [facility] Buprenorphine Screen Urine Negative Cutoff: 10 ng/mL 03/07/2025 2:48 AM EDT [facility] Fentanyl Screen Urine Negative Cutoff: 1 ng/mL 03/07/2025 2:48 AM EDT [facility] Oxycodone Screen Urine Negative Cutoff: 100 ng/mL 03/07/2025 2:48 AM EDT [facility] Urine Urine specimen obtained by clean catch procedure / Unknown Non-blood Collection / Unknown 03/07/2025 2:00 AM EDT 03/07/2025 2:16 AM EDT us Jason Quezada APRN LAB URINE ORDERABLES Final Re sult Performing Organization Address [facility] Co de Phone Number [facility] [address] [place] [address] * SARS CoV-2/COVID-19 by PCR - Rapid (03/07/2025 12:12 AM EDT) [facility] SARS CoV-2/COVID-1 9 RNA PCR Result Not Detected Not Detected 03/07/2025 1:54 AM EDT [facility] Swab Nasopharyngeal structure / Unknown Non-blood Collection / Unknown 03/07/2025 12:12 AM EDT 03/07/2025 1:00 AM EDT Narrative [facility] - 03/07/2025 1:54 AM [...] GENERAL ORDERABLES Final Result Performing Organization Address [facility] Co de Phone Number [facility] [address] [place] [address] * Nasopharyngeal Respiratory Panel (03/07/2025 12:12 AM EDT) [facility] Nasopharyngeal Respiratory PCR Interpretation Not Detected for all analytes Not Detected for all analytes 03/07/2025 3:04 AM EDT [facility] Swab Nasopharyngeal structure / Unknown Non-blood Collection / Unknown 03/07/2025 12:12 AM EDT 03/07/2025 1:00 AM EDT Narrative [facility] - 03/07/2025 3:04 AM [...] Respiratory PCR Panel is performed using the [employer]Stream[employer] instrument. This test is FDA approved for use with Nasopharyngeal swabs only. This test is used for clinical purposes. It should not be regarded as investigational or for research. [facility] is certified under the Clinical Laboratory Improvement Amendments of 1988 (CLIA-88) as qualified to perform high complexity clinical laboratory testing. Ariella Chapman MD LAB MICROBIOLOGY - GENERAL ORDERABLES Final Result [facility] [address] [place] [id number] * (ABNORMAL) Troponin T, High Sensitivity, 2 Hour, Plasma (03/06/2025 10:05 PM EDT) Troponin T, High Sensitivity, 2 Hour 70(H) <19 ng/L 03/06/2025 10:31 PM EDT [facility] Troponin Delta 6 <10 ng/L 03/06/2025 10:31 PM EDT [facility] Troponin Delta Interpretation Not Significant 03/06/2025 10:31 PM EDT [facility] Comment:Not Significant. No acute change in troponin observed between the baseline and 2 hour samples. Blood Venous blood specimen / Unknown Venipuncture / Unknown 03/06/2025 10:05 PM EDT 03/06/2025 10:11 PM EDT Nabor Tam MD LAB BLOOD ORDERABLES Final Resul t Performing Organization Address [facility] de Phone Number [facility] [address] [place] [address] * (ABNORMAL) Anti Xa Level Unfractionated Heparin (03/06/2025 8:26 PM EDT) Anti Xa Level Unfractionated Heparin >1.10(HH) <1.00 IU/mL 03/06/2025 8:41 PM EDT [facility] Blood Venous blood specimen / Unknown Venipuncture / Unknown 03/06/2025 8:26 PM EDT 03/06/2025 8:27 PM EDT Narrative [facility] - 03/06/2025 8:41 PM EDT Therapeutic Range: UFH Full Dose and ACS/ID protocols*: 0.30 - 0.70 IU/mL UFH Low Dose protocol*: 0.25 - 0.50 IU/mL UFH prophylaxis: Not established Nabor Tam MD LAB BLOOD ORDERABLES Final Resul t Performing Organization Address [facility] de Phone Number [facility] [address] [place] [address] * XR Chest 1 View (03/06/2025 8:04 [...] - 170 ug/dL 03/07/2025 2:27 AM EDT [facility] Transferrin, Plasma 133(L) 200 - 360 mg/dL 03/07/2025 2:27 AM EDT [facility] Total Iron Binding Capacity, Plasma 166(L) 240 - 450 ug/mL 03/07/2025 2:27 AM EDT [facility] Transferrin Saturation 23 14 - 50 % 03/07/2025 2:27 AM EDT [facility] Blood Venous blood specimen / Unknown Venipuncture / Unknown 03/06/2025 7:57 PM EDT 03/06/2025 8:02 PM EDT us Jason Quezada CAPTION WRITER LAB BLOOD ORDERABLES Final Re sult [facility] [address] [place] [address] * (ABNORMAL) Hemoglobin A1c (03/06/2025 7:57 PM EDT) Hemoglobin A1c 9.3(H) <5.7 % 03/07/2025 12:02 PM EDT [facility] Blood Venous blood specimen / Unknown Venipuncture / Unknown 03/06/2025 7:57 PM EDT 03/06/2025 8:02 PM EDT Narrative [facility] - 03/07/2025 12:02 PM EDT HA1C Interpretive Data: Diagnosis of Diabetes: Diabetic > or = 6.5% Pre-diabetic 5.7 to 6.4% Non-diabetic < or = 5.6% Glycemic Targets for Type I and Type II Diabetics: Non- Adults <7.0% Adults <6.0% Children and Adolescents <7.5% Source: [place] [employer]. Standards of medical care in diabetes,2017. Diabetes Care.2017:40 (suppl 1):S1-S135. Jason Quezada CAPTION WRITER LAB BLOOD ORDERABLES Final Re sult Performing Organization Address [facility] Co de Phone Number [facility] [address] [place] [address] * Phosphorus, Plasma (03/06/2025 7:57 PM EDT) Phosphorus, Plasma 3.2 2.5 - 4.5 mg/dL 03/07/2025 12:25 AM EDT [facility] Blood Venous blood specimen / Unknown Venipuncture / Unknown 03/06/2025 7:57 PM EDT 03/06/2025 8:02 PM EDT Jason Quezada CAPTION WRITER LAB BLOOD ORDERABLES Final Re sult Performing Organization Address City/[facility]/ZIP Co de Phone Number [facility] [address] [place] [address] * (ABNORMAL) BNP (03/06/2025 7:57 PM EDT) N-Terminal, PROBNP, Plasma 2,403(H) 0 - 1,799 pg/mL 03/06/2025 8:38 PM EDT [facility] Blood Venous blood specimen / Unknown Venipuncture / Unknown 03/06/2025 7:57 PM EDT 03/06/2025 8:02 PM EDT us Nabor Tam MD LAB BLOOD ORDERABLES Final Resul t Performing Organization Address City/[facility]/ZIP Co de Phone Number [facility] [address] [place] [address] * Free T4, Plasma (03/06/2025 7:57 PM EDT) Free T4, Plasma 1.2 0.8 - 1.7 ng/dL 03/06/2025 8:35 PM EDT [facility] Blood Venous blood specimen / Unknown Venipuncture / Unknown 03/06/2025 7:57 PM EDT 03/06/2025 8:02 PM EDT us Nabor Tam MD LAB BLOOD ORDERABLES Final Resul t Performing Organization Address [facility]/[place] [address] * Thyroid Stimulating Hormone, Plasma (03/06/2025 7:57 PM EDT) Thyroid Stimulating Hormone, Plasma 0.96 0.40 - 4.20 uIU/mL 03/06/2025 8:38 PM EDT [facility] Blood Venous blood specimen / Unknown Venipuncture / Unknown 03/06/2025 7:57 PM EDT 03/06/2025 8:02 PM EDT us Nabor Tam MD LAB BLOOD ORDERABLES Final Resul t Performing Organization Address City/[facility]/ZIP Co de Phone Number [facility] [address] [place] [address] * (ABNORMAL) Troponin now and 120 min (03/06/2025 7:57 PM EDT) Troponin T, High Sensitivity, 0 Hour 76(H) <19 ng/L 03/06/2025 8:35 PM EDT [facility] Blood Venous blood specimen / Unknown Venipuncture / Unknown 03/06/2025 7:57 PM EDT 03/06/2025 8:02 PM EDT us Nabor Tam MD LAB BLOOD ORDERABLES Final Resul t Performing Organization Address City/[facility]/ZIP Co de Phone Number [facility] [address] [place] [address] * Lactic acid, venous (03/06/2025 7:57 PM EDT) [facility] Lactate, Venous, Whole Blood 2.2 0.5 - 2.2 mmol/L LAB HEMATOLOGY METHOD 03/06/2025 8:04 PM EDT [facility] Blood Venous blood specimen / Unknown Venipuncture / Unknown 03/06/2025 7:57 PM EDT 03/06/2025 8:03 PM EDT us Nabor Tam MD LAB BLOOD ORDERABLES Final Resul t Performing Organization Address [facility] Co de Phone Number [facility] [address] [place] [address] * Lipase (03/06/2025 7:57 PM EDT) [facility] Lipase, Plasma 28 19 - 63 U/L 03/06/2025 8:38 PM EDT [facility] Blood Venous blood specimen / Unknown Venipuncture / Unknown 03/06/2025 7:57 PM EDT 03/06/2025 8:02 PM EDT us Nabor Tam MD LAB BLOOD ORDERABLES Final Resul t Performing Organization Address City/[facility] Co de Phone Number [facility] [address] [place] [address] * (ABNORMAL) Magnesium (03/06/2025 7:57 PM EDT) Magnesium, Plasma 1.8(L) 1.9 - 2.4 mg/dL 03/06/2025 8:38 PM EDT [facility] Blood Venous blood specimen / Unknown Venipuncture / Unknown 03/06/2025 7:57 PM EDT 03/06/2025 8:02 PM EDT us Nabor Tam MD LAB BLOOD ORDERABLES Final Resul t [facility] [address] [place] [address] * (ABNORMAL) CMP (03/06/2025 7:57 PM EDT) Glucose, Plasma 180(H) 74 - 99 mg/dL 03/06/2025 8:38 PM EDT [facility] BUN, Plasma 38(H) 8 - 23 mg/dL 03/06/2025 8:38 PM EDT [facility] Creatinine, Plasma 3.62(H) 0.70 - 1.20 mg/dL 03/06/2025 8:38 PM EDT [facility] BUN/Creatinine Ratio 10 03/06/2025 8:38 PM EDT [facility] Sodium, Plasma 138 136 - 145 mmol/L 03/06/2025 8:38 PM EDT [facility] Potassium, Plasma 4.7 3.6 - 4.9 mmol/L 03/06/2025 8:38 PM EDT [facility] Chloride, Plasma 108(H) 97 - 107 mmol/L 03/06/2025 8:38 PM EDT [facility] CO2, Plasma 15(L) 22 - 29 mmol/L 03/06/2025 8:38 PM EDT [facility] Anion Gap 15 6 - 16 mmol/L 03/06/2025 8:38 PM EDT [facility] Total Calcium, Plasma 8.1(L) 8.9 - 10.2 mg/dL 03/06/2025 8:38 PM EDT [facility] Total Protein 5.2(L) 6.3 - 7.9 g/dL 03/06/2025 8:38 PM EDT [facility] Albumin, Plasma 2.4(L) 3.5 - 5.2 g/dL 03/06/2025 8:38 PM EDT [facility] AST, Plasma 21 10 - 50 U/L 03/06/2025 8:38 PM EDT [facility] Comment:Hemolyzed, result ma y be falsely increased. ALT, Plasma 11 10 - 50 U/L 03/06/2025 8:38 PM EDT [facility] Alkaline Phosphatase, Plasma 124(H) 40 - 115 U/L 03/06/2025 8:38 PM EDT [facility] Total Bilirubin, Plasma 0.3 0.2 - 1.1 mg/dL 03/06/2025 8:38 PM EDT [facility] eGFRcr 15.9 mL/min/1.7 3m*2 03/06/2025 8:38 PM EDT [facility] Comment:Reported eGFRcr in m L/min/1.73m2 is based the CKD-EPI 2020 equation that does not use a race coefficient. Blood Venous blood specimen / Unknown Venipuncture / Unknown 03/06/2025 7:57 PM EDT 03/06/2025 8:02 PM EDT us Nabor Tam MD LAB BLOOD ORDERABLES Final Resul t [facility] [address] [place] [address] * (ABNORMAL) PT-INR (03/06/2025 7:57 PM EDT) Prothrombin Time 17.9(H) 12.0 - 14.3 sec 03/06/2025 8:16 PM EDT [facility] INR 1.5(H) 0.9 - 1.1 03/06/2025 8:16 PM EDT [facility] Blood Venous blood specimen / Unknown Venipuncture / Unknown 03/06/2025 7:57 PM EDT 03/06/2025 8:02 PM EDT Narrative [facility] - 03/06/2025 8:16 PM EDT OPTIMAL INR RANGES FOR PATIENT ON ORAL ANTICOAGULANT THERAPY Prevention of venous thromboembolism INR 2.0 to 3.0 In patients with heart disease: Atrial fibrillation INR 2.0 to 3.0 Valvular heart disease INR 2.0 to 3.0 Tissue heart valves INR 2.0 to 3.0 Mechanical prosthetic valves INR 2.5 to 3.5 Prevention of recurrent ID INR 2.5 to 3.5 us Nabor Tam MD LAB BLOOD ORDERABLES Final Resul t [facility] [address] [place] [address] * (ABNORMAL) CBC w/diff (03/06/2025 7:57 PM EDT) WBC Count 6.29 3.70 - 10.30 10*3/uL LAB HEMATOLOGY METHOD 03/06/2025 8:05 PM EDT [facility] RBC Count 3.78(L) 4.60 - 6.10 10*6/uL LAB HEMATOLOGY METHOD 03/06/2025 8:05 PM EDT [facility] HGB 11.3(L) 13.7 - 17.5 g/dL LAB HEMATOLOGY METHOD 03/06/2025 8:05 PM EDT [facility] HCT 34.7(L) 40.0 - 51.0 % LAB HEMATOLOGY METHOD 03/06/2025 8:05 PM EDT [facility] Platelet Count 198 155 - 369 10*3/uL LAB HEMATOLOGY METHOD 03/06/2025 8:05 PM EDT [facility] MCV 92 79 - 98 fL LAB HEMATOLOGY METHOD 03/06/2025 8:05 PM EDT [facility] MCH 29.9 26.0 - 32.0 pg LAB HEMATOLOGY METHOD 03/06/2025 8:05 PM EDT [facility] MCHC 32.6 30.7 - 35.5 g/dL LAB HEMATOLOGY METHOD 03/06/2025 8:05 PM EDT [facility] RDW 13.2 11.5 - 14.5 % LAB HEMATOLOGY METHOD 03/06/2025 8:05 PM EDT [facility] MPV 10.0 8.8 - 12.5 fL LAB HEMATOLOGY METHOD 03/06/2025 8:05 PM EDT [facility] nRBC 0.0 <=0.0 per 100 WBCs LAB HEMATOLOGY METHOD 03/06/2025 8:05 PM EDT [facility] Differential Type Automated LAB HEMATOLOGY METHOD 03/06/2025 8:05 PM EDT [facility] Neutrophils % 67 % LAB HEMATOLOGY METHOD 03/06/2025 8:05 PM EDT [facility] Lymphocytes % 18 % LAB HEMATOLOGY METHOD 03/06/2025 8:05 PM EDT [facility] Monocytes % 12 % LAB HEMATOLOGY METHOD 03/06/2025 8:05 PM EDT [facility] Eosinophils % 1 % LAB HEMATOLOGY METHOD 03/06/2025 8:05 PM EDT [facility] Basophils % 1 % LAB HEMATOLOGY METHOD 03/06/2025 8:05 PM EDT [facility] Immature Granulocytes % 1 % LAB HEMATOLOGY METHOD 03/06/2025 8:05 PM EDT [facility] Neutrophils Absolute 4.23 1.60 - 6.10 10*3/uL LAB HEMATOLOGY METHOD 03/06/2025 8:05 PM EDT [facility] Lymphocytes Absolute 1.13(L) 1.20 - 3.90 10*3/uL LAB HEMATOLOGY METHOD 03/06/2025 8:05 PM EDT [facility] Monocytes Absolute 0.78 0.30 - 0.90 10*3/uL LAB HEMATOLOGY METHOD 03/06/2025 8:05 PM EDT [facility] Eosinophils Absolute 0.07 0.00 - 0.50 10*3/uL LAB HEMATOLOGY METHOD 03/06/2025 8:05 PM EDT [facility] Basophils Absolute 0.03 0.00 - 0.10 10*3/uL LAB HEMATOLOGY METHOD 03/06/2025 8:05 PM EDT [facility] Immature Granulocytes Absolute 0.05 0.00 - 0.06 10*3/uL LAB HEMATOLOGY METHOD 03/06/2025 8:05 PM EDT [facility] Blood Venous blood specimen / Unknown Venipuncture / Unknown 03/06/2025 7:57 PM EDT 03/06/2025 8:02 PM EDT [facility] - 03/06/2025 8:05 PM EDT Therapeutic decision making should be based on absolute values, rather than percentages. us Nabor Tam MD LAB BLOOD ORDERABLES Final Resul t [facility] [address] [place] [address] * (ABNORMAL) POCT arterial blood gas gem (03/06/2025 7:48 PM EDT) pH, Arterial 7.31 7.31 - 7.42 03/06/2025 7:50 PM EDT [facility] pCO2, Arterial 31(L) 32 - 45 mm Hg 03/06/2025 7:50 PM EDT [facility] pO2, Arterial 30(LL) >60 mm Hg 03/06/2025 7:50 PM EDT [facility] SO2, Arterial 55(L) 94 - 98 % 03/06/2025 7:50 PM EDT [facility] FIO2 100.0 % 03/06/2025 7:50 PM EDT [facility] Base Excess, Arterial -9.5(L) -2 - 3 mmol/L 03/06/2025 7:50 PM EDT [facility] HCO3, Arterial 15.6(L) 22 - 26 mmol/L 03/06/2025 7:50 PM EDT [facility] Total Hemoglobin, Arterial, Whole Blood 12.9(L) 13.7 - 17.5 g/dL 03/06/2025 7:50 PM EDT [facility] Hematocrit, Arterial 39.0(L) 40 - 51.0 % 03/06/2025 7:50 PM EDT [facility] Sodium, Arterial 134(L) 136 - 145 mmol/L 03/06/2025 7:50 PM EDT [facility] Potassium, Arterial 4.3 3.6 - 4.9 mmol/L 03/06/2025 7:50 PM EDT [facility] Comment:Hemolyzed, result ma y be falsely increased. Chloride, Whole Blood 107 97 - 107 mmol/L 03/06/2025 7:50 PM EDT [facility] Glucose, Arterial 178(H) 74 - 99 mg/dL 03/06/2025 7:50 PM EDT [facility] Ionized Calcium, Arterial 4.5(L) 4.6 - [...] Hg 03/06/2025 7:50 PM EDT [facility] Pulmonologist Intensivist ID Robina Álvarez 03/06/2025 7:50 PM EDT [...] UNSOLICITED RESULTS Final Result Performing Organization Address City/State/[facility] Co de Phone Number [facility] [address] [place] [address] * ECG Adult (03/06/2025 7:47 PM EDT) EKG DIAGNOSIS CLASS Abnormal MUSE ECG Ventricular Rate 107 BPM MUSE ECG Atrial Rate 107 BPM MUSE ECG IN Interval 168 ms MUSE ECG QRSD Interval 80 ms MUSE ECG QT Interval 320 ms MUSE ECG QTC Interval 427 ms MUSE ECG P [place] 60 degrees MUSE ECG R [place] -38 degrees MUSE ECG T Wave [place] 75 degrees MUSE ECG Diagnosis Poor data quality, interpretation may be adversely affected MUSE ECG Diagnosis Poor data quality MUSE ECG Diagnosis Sinus tachycardia with occasional premature ventricular complexes MUSE ECG Diagnosis Left axis deviation MUSE ECG Diagnosis STT changes vs. artifact MUSE ECG Diagnosis Abnormal ECG MUSE ECG Diagnosis Recommend repeat ECG MUSE ECG Diagnosis MUSE ECG Diagnosis Confirmed by Yoan Connors ([id number]) on 03/06/2025 9:08:27 PM MUSE ECG 03/06/2025 7:47 PM EDT 03/06/2025 9:08 PM EDT us Nabor Tam MD ECG ORDERABLES Final Result MUSE ECG * Light Green Top (03/06/2025 7:47 PM EDT) Extra Hold for add-ons 03/06/2025 11:01 PM EDT [facility] Comment:Auto resulted. Blood Venous blood specimen / Unknown 03/06/2025 7:47 PM EDT 03/06/2025 8:02 PM EDT us Nabor Tam MD LAB BLOOD ORDERABLES Final Resul t [facility] [address] [place] [address] * EKG now - STAT (adult) (03/06/2025 7:31 PM EDT) EKG DIAGNOSIS CLASS Abnormal MUSE ECG Ventricular Rate 182 BPM MUSE ECG QRSD Interval 76 ms MUSE ECG QT Interval 252 ms MUSE ECG QTC Interval 438 ms MUSE ECG R [place] -18 degrees MUSE ECG T Wave [place] 118 degrees MUSE ECG Diagnosis Poor data quality, interpretation may be adversely affected MUSE ECG Diagnosis Supraventricular tachycardia MUSE ECG Diagnosis Left ventricular hypertrophy ( R in aVL ) MUSE ECG Diagnosis ST abnormality and T wave abnormality, consider lateral ischemia MUSE ECG Diagnosis Abnormal ECG MUSE ECG Diagnosis MUSE ECG Diagnosis Confirmed by Yoan Connors ([id number]) on 03/06/2025 9:04:52 PM MUSE ECG 03/06/2025 7:31 PM EDT 03/06/2025 9:04 PM EDT us Nabor Tam MD ECG ORDERABLES Final Result MUSE ECG * IN CRITICAL CARE, E/M 30-74 MINUTES (03/06/2025 7:17 [...] (acute kidney injury)- Primary SVT (supraventricular tachycardia) (CMS/[facility]) Other specified cardiac dysrhythmias ROSA (acute kidney [...] PRN, Starting on Fri03/07/25 at 0110, Until Kristen 03/10/25 at 1907, Routine, low blood sugar, [...] documented as of this encounter Care Teams Tuber Operator Relationship Specialty Start Date End Date Pcp, Kourtney [address] [place] [address] PCP - General Family Medicine 03/06/25 documented as of this encounter
--- OUTSIDE RECORDS SUMMARY | 2025-05-02 11:03 | XMS_ITS | Continuity of Care Document ---
Author Organization [facility] Address [address] [place] [address] Assessment Encounter Date Assessment Date Assessment LastModified [...] None recorded. Referral physical therapist referral 2024 [facility], [address], [place], [address], 03/31/2025 15:11:09 Procedures None recorded. Surgeries None recorded. Imaging None recorded. Medication Orders fexofenad ine 180 mg tablet 2024 025 [facility], [address] [place], [place], [id number], 03/24/2025 17:39:04 furosemid e 40 mg tablet 2024 025 [facility], [address] , [place], [place], [id number], 03/24/2025 14:13:36 Patient TargetsNo targets recorded. Patient Instructions Encounter Date Encounter Id Patient Instructions Last Modified By Organization Details Last Modified Time 03/24/2025 [id number] When You Want to Lose Weight: Care Instructions [email or web address] Not available 03/24/2025 15:58:18 Reason for Referral Physical Therapist Referral for Weakness of bilateral lower limb Referring Physician: Giovnani Glass, Family Medicine, Encounter Date: 03/24/2025 Results Created Date Observation Date Name Description Value Unit Range Abnormal Flag Note LastModifiedBy Organization Detail LastModifiedTime 03/04/2003/05/2025 CBC WITH DIFFE RENTI AL/PL ATELE T WBC 7.2 x10e3 /uL 3.4-10 .8 normal Not Available [facility] ([facility]) [address] [place], [address], 03/05/2025 06:17:27 03/04/20 25 03/05/2025 CBC WITH DIFFE RENTI AL/PL ATELE T RBC 4.10 x10e6 /uL 4.14-5 .80 below low normal Not Available [facility] ([facility]) [address] [place], [address], 03/05/2025 06:17:27 03/04/2003/05/2025 CBC WITH DIFFE RENTI AL/PL ATELE T hemoglobin 12.3 g/dL 13.0-1 7.7 below low normal Not Available [facility] ([facility]) [address] [place], [address], 03/05/2025 06:17:27 03/04/20 25 03/05/2025 CBC WITH DIFFE RENTI AL/PL ATELE T hematocrit 38.0 % 37.5-5 1.0 normal Not Available [facility] ([facility]) [address] [place], [address], 03/05/2025 06:17:27 03/04/2003/05/2025 CBC WITH DIFFE RENTI AL/PL ATELE T MCV 93 fL 79-97 normal Not Available [facility] ([facility]) [address] [facility], [place], [address], 03/05/2025 06:17:27 03/04/2003/05/2025 CBC WITH DIFFE RENTI AL/PL ATELE T MCH 30.0 pg 26.6-3 3.0 normal Not Available [facility] ([facility]) [address] [facility], [place], [address], 03/05/2025 06:17:27 03/04/2003/05/2025 CBC WITH DIFFE RENTI AL/PL ATELE T MCHC 32.4 g/dL 31.5-3 5.7 normal Not Available [facility] ([facility]) [address] [facility], [place], [address], 03/05/2025 06:17:27 03/04/2003/05/2025 CBC WITH DIFFE RENTI AL/PL ATELE T RDW 12.4 % 11.6-1 5.4 Not Available [facility] ([facility]) [address] [place], [address], 03/05/2025 06:17:27 03/04/2003/05/2025 CBC WITH DIFFE RENTI AL/PL ATELE T platelets 233 x10e3 /uL 150-45 0 normal Not Available [facility] ([facility]) [address] [facility], [place], [address], 03/05/2025 06:17:27 03/04/2003/05/2025 CBC WITH DIFFE RENTI AL/PL ATELE T neutrophils 67 % not estab. normal Not Available [facility] ([facility]) [address] [place], [address], 03/05/2025 06:17:27 03/04/20 25 03/05/2025 CBC WITH DIFFE RENTI AL/PL ATELE T lymphs 18 % not estab. normal Not Available [facility] ([facility]) [address] [facility], [place], [address], 03/05/2025 06:17:27 03/04/2003/05/2025 CBC WITH DIFFE RENTI AL/PL ATELE T monocytes 11 % not estab. normal Not Available [facility] ([facility]) [address] [facility], [place], [address], 03/05/2025 06:17:27 03/04/2003/05/2025 CBC WITH DIFFE RENTI AL/PL ATELE T eos 3 % not estab. normal Not Available [facility] ([facility]) [address] [place], [address], 03/05/2025 06:17:27 03/04/2003/05/2025 CBC WITH DIFFE RENTI AL/PL ATELE T basos 0 % not estab. normal Not Available [facility] ([facility]) [address] [place], [address], 03/05/2025 06:17:27 03/04/2003/05/2025 CBC WITH DIFFE RENTI AL/PL ATELE T immature cells ANIMAL DOCTOR Not Available [facility] ([facility]) [address] [place], [address], 03/05/2025 06:17:27 03/04/2003/05/2025 CBC WITH DIFFE RENTI AL/PL ATELE T neutrophils (absolute) 4.8 x10e3 /uL 1.4-7. 0 normal Not Available [facility] ([facility]) [address] [place], [address], 03/05/2025 06:17:27 03/04/2003/05/2025 CBC WITH DIFFE RENTI AL/PL ATELE T lymphs (absolute) 1.3 x10e3 /uL 0.7-3. 1 normal Not Available [facility] ([facility]) [address] [facility], [place], [address], 03/05/2025 06:17:27 03/04/20 25 03/05/2025 CBC WITH DIFFE RENTI AL/PL ATELE T monocytes(ab solute) 0.8 x10e3 /uL 0.1-0. 9 normal Not Available [facility] ([facility]) [address] [facility], [place], [address], 03/05/2025 06:17:27 03/04/2003/05/2025 CBC WITH DIFFE RENTI AL/PL ATELE T eos (absolute) 0.2 x10e3 /uL 0.0-0. 4 normal Not Available [facility] ([facility]) [address] [place], [address], 03/05/2025 06:17:27 03/04/20 25 03/05/2025 CBC WITH DIFFE RENTI AL/PL ATELE T baso (absolute) 0.0 x10e3 /uL 0.0-0. 2 normal Not Available [facility] ([facility]) [address] [place], [address], 03/05/2025 06:17:27 03/04/2003/05/2025 CBC WITH DIFFE RENTI AL/PL ATELE T immature granulocytes 1 % not estab. Not Available [facility] ([facility]) [address] [place], [address], 03/05/2025 06:17:27 03/04/2003/05/2025 CBC WITH DIFFE RENTI AL/PL ATELE T immature grans (abs) 0.1 x10e3 /uL 0.0-0. 1 Not Available [facility] ([facility]) [address] [place], [address], 03/05/2025 06:17:27 03/04/20 25 03/05/2025 CBC WITH DIFFE RENTI AL/PL ATELE T NRBC ANIMAL DOCTOR Not Available [facility] ([facility]) [address] [facility], [place], [address], 03/05/2025 06:17:27 03/04/20 25 03/05/2025 CBC WITH DIFFE RENTI AL/PL ATELE T hematology comments: ANIMAL DOCTOR Not Available [facility] ([facility]) [address] [facility], [place], [address], 03/05/2025 06:17:27 03/04/20 25 03/05/2025 BASIC METAB OLIC PANEL (8) glucose 150 mg/dL 70-99 above high normal Not Available [facility] ([facility]) [address] [place], [address], 03/05/2025 06:17:27 03/04/20 25 03/05/2025 BASIC METAB OLIC PANEL (8) BUN 42 mg/dL 8-27 above high normal Not Available [facility] ([facility]) [address] [place], [address], 03/05/2025 06:17:27 03/04/20 25 03/05/2025 BASIC METAB OLIC PANEL (8) creatinine 3.49 mg/dL 0.76-1 .27 above high normal Not Available [facility] ([facility]) [address] [place], [address], 03/05/2025 06:17:27 03/04/2003/05/2025 BASIC METAB OLIC PANEL (8) eGFR 17 mL/mi n/1.7 3 >59 below low normal Not Available [facility] ([facility]) [address] [place], [address], 03/05/2025 06:17:27 03/04/20 25 03/05/2025 BASIC METAB OLIC PANEL (8) BUN/creatini ne ratio 12 10-24 normal Not Available [facility] ([facility]) [address] [place], [address], 03/05/2025 06:17:27 03/04/2003/05/2025 BASIC METAB OLIC PANEL (8) sodium 136 mmol/ L 134-14 4 normal Not Available [facility] ([facility]) [address] [place], [address], 03/05/2025 06:17:27 03/04/2003/05/2025 BASIC METAB OLIC PANEL (8) potassium 4.7 mmol/ L 3.5-5. 2 normal Not Available [facility] ([facility]) [address] [place], [address], 03/05/2025 06:17:27 03/04/2003/05/2025 BASIC METAB OLIC PANEL (8) chloride 105 mmol/ L 96-106 normal Not Available [facility] ([facility]) [address] [place], [address], 03/05/2025 06:17:27 03/04/2003/05/2025 BASIC METAB OLIC PANEL (8) carbon dioxide, total 13 mmol/ L 20-29 below low normal Speci men quant ity insuf ficie nt for verif icati on by repea t luisito sis. Not Available [facility] ([facility]) [address] [place], [address], 03/05/2025 06:17:27 03/04/2003/05/2025 BASIC METAB OLIC PANEL (8) calcium 8.3 mg/dL 8.6-10 .2 below low normal Not Available [facility] ([facility]) [address] [place], [address], 03/05/2025 06:17:27 03/24/20 25 03/25/2025 BMP7+ EGFR glucose 193 mg/dL 70-99 above high normal Not Available [facility] ([facility]) [address] [facility] [place], [address], 03/25/2025 11:14:10 03/24/2003/25/2025 BMP7+ EGFR BUN 27 mg/dL 8-27 normal Not Available [facility] ([facility]) [address] [facility] [place], [address], 03/25/2025 11:14:10 03/24/2003/25/2025 BMP7+ EGFR creatinine 2.75 mg/dL 0.76-1 .27 above high normal Not Available [facility] ([facility]) [address] [facility] [place], [address], 03/25/2025 11:14:10 03/24/2003/25/2025 BMP7+ EGFR eGFR 22 mL/mi n/1.7 3 >59 below low normal Not Available [facility] ([facility]) [address] [facility] [place], [address], 03/25/2025 11:14:10 03/24/2003/25/2025 BMP7+ EGFR sodium 142 mmol/ L 134-14 4 normal Not Available [facility] ([facility]) [address] [facility] [place], [address], 03/25/2025 11:14:10 03/24/2003/25/2025 BMP7+ EGFR potassium 4.8 mmol/ L 3.5-5. 2 normal Not Available [facility] ([facility]) [address] [facility] [place], [address], 03/25/2025 11:14:10 03/24/2003/25/2025 BMP7+ EGFR chloride 111 mmol/ L 96-106 above high normal Not Available [facility] ([facility]) [address] [facility] [place], [address], 03/25/2025 11:14:10 03/24/2003/25/2025 BMP7+ EGFR carbon dioxide, total 17 mmol/ L 20-29 below low normal Not Available [facility] ([facility]) [address] [facility], [place], [address], 03/25/2025 11:14:10 03/24/20 25 03/25/2025 CBC WITH DIFFE RENTI AL/PL ATELE T WBC 4.8 x10e3 /uL 3.4-10 .8 normal Not Available [facility] ([facility]) [address] [facility], [place], [address], 03/25/2025 11:14:11 03/24/2003/25/2025 CBC WITH DIFFE RENTI AL/PL ATELE T RBC 3.30 x10e6 /uL 4.14-5 .80 below low normal Not Available [facility] ([facility]) [address] [facility], [place], [address], 03/25/2025 11:14:11 03/24/2003/25/2025 CBC WITH DIFFE RENTI AL/PL ATELE T hemoglobin 9.8 g/dL 13.0-1 7.7 below low normal Not Available [facility] ([facility]) [address] [facility], [place], [address], 03/25/2025 11:14:11 03/24/2003/25/2025 CBC WITH DIFFE RENTI AL/PL ATELE T hematocrit 31.8 % 37.5-5 1.0 below low normal Not Available [facility] ([facility]) [address] [place], [address], 03/25/2025 11:14:11 03/24/2003/25/2025 CBC WITH DIFFE RENTI AL/PL ATELE T MCV 96 fL 79-97 normal Not Available [facility] ([facility]) [address] [place], [address], 03/25/2025 11:14:11 03/24/2003/25/2025 CBC WITH DIFFE RENTI AL/PL ATELE T MCH 29.7 pg 26.6-3 3.0 normal Not Available [facility] ([facility]) [address] [facility], [place], [address], 03/25/2025 11:14:11 03/24/2003/25/2025 CBC WITH DIFFE RENTI AL/PL ATELE T MCHC 30.8 g/dL 31.5-3 5.7 below low normal Not Available [facility] ([facility]) [address] [facility], [place], [address], 03/25/2025 11:14:11 03/24/2003/25/2025 CBC WITH DIFFE RENTI AL/PL ATELE T RDW 13.1 % 11.6-1 5.4 Not Available [facility] ([facility]) [address] [facility], [place], [address], 03/25/2025 11:14:11 03/24/2003/25/2025 CBC WITH DIFFE RENTI AL/PL ATELE T platelets 199 x10e3 /uL 150-45 0 normal Not Available [facility] ([facility]) [address] [facility], [place], [address], 03/25/2025 11:14:11 03/24/2003/25/2025 CBC WITH DIFFE RENTI AL/PL ATELE T neutrophils 54 % not estab. normal Not Available [facility] ([facility]) [address] [facility], [place], [address], 03/25/2025 11:14:11 03/24/2003/25/2025 CBC WITH DIFFE RENTI AL/PL ATELE T lymphs 31 % not estab. normal Not Available [facility] ([facility]) [address] [place], [address], 03/25/2025 11:14:11 03/24/2003/25/2025 CBC WITH DIFFE RENTI AL/PL ATELE T monocytes 12 % not estab. normal Not Available [facility] ([facility]) [address] [facility], [place], [address], 03/25/2025 11:14:11 03/24/2003/25/2025 CBC WITH DIFFE RENTI AL/PL ATELE T eos 2 % not estab. normal Not Available [facility] ([facility]) [address] [facility], [place], [address], 03/25/2025 11:14:11 03/24/2003/25/2025 CBC WITH DIFFE RENTI AL/PL ATELE T basos 1 % not estab. normal Not Available [facility] ([facility]) [address] [facility], [place], [address], 03/25/2025 11:14:11 03/24/2003/25/2025 CBC WITH DIFFE RENTI AL/PL ATELE T immature cells ANIMAL DOCTOR Not Available [facility] ([facility]) [address] [place], [address], 03/25/2025 11:14:11 03/24/2003/25/2025 CBC WITH DIFFE RENTI AL/PL ATELE T neutrophils (absolute) 2.6 x10e3 /uL 1.4-7. 0 normal Not Available [facility] ([facility]) [address] [facility], [place], [address], 03/25/2025 11:14:11 03/24/2003/25/2025 CBC WITH DIFFE RENTI AL/PL ATELE T lymphs (absolute) 1.5 x10e3 /uL 0.7-3. 1 normal Not Available [facility] ([facility]) [address] [place], [address], 03/25/2025 11:14:11 03/24/2003/25/2025 CBC WITH DIFFE RENTI AL/PL ATELE T monocytes(ab solute) 0.6 x10e3 /uL 0.1-0. 9 normal Not Available [facility] ([facility]) [address] [facility], [place], [address], 03/25/2025 11:14:11 03/24/2003/25/2025 CBC WITH DIFFE RENTI AL/PL ATELE T eos (absolute) 0.1 x10e3 /uL 0.0-0. 4 normal Not Available [facility] ([facility]) [address] [facility], [place], [address], 03/25/2025 11:14:11 03/24/2003/25/2025 CBC WITH DIFFE RENTI AL/PL ATELE T baso (absolute) 0.0 x10e3 /uL 0.0-0. 2 normal Not Available [facility] ([facility]) [address] [facility], [place], [address], 03/25/2025 11:14:11 03/24/2003/25/2025 CBC WITH DIFFE RENTI AL/PL ATELE T immature granulocytes 0 % not estab. Not Available [facility] ([facility]) [address] [facility], [place], [address], 03/25/2025 11:14:11 03/24/2003/25/2025 CBC WITH DIFFE RENTI AL/PL ATELE T immature grans (abs) 0.0 x10e3 /uL 0.0-0. 1 Not Available [facility] ([facility]) [address] [facility], [place], [address], 03/25/2025 11:14:11 03/24/2003/25/2025 CBC WITH DIFFE RENTI AL/PL ATELE T NRBC ANIMAL DOCTOR Not Available [facility] ([facility]) [address] [facility], [place], [address], 03/25/2025 11:14:11 03/24/20 25 03/25/2025 CBC WITH DIFFE RENTI AL/PL ATELE T hematology comments: ANIMAL DOCTOR Not Available [facility] ([facility]) [address] [facility], [place], [address], 03/25/2025 11:14:11 03/24/20 25 03/25/2025 RENAL PANEL (10) BUN/creatini ne ratio 10 10-24 normal Not Available [facility] ([facility]) [address] [facility], [place], [address], 03/25/2025 11:14:12 03/24/2003/25/2025 RENAL PANEL (10) calcium 8.0 mg/dL 8.6-10 .2 below low normal Not Available [facility] ([facility]) [address] [facility], [place], [address], 03/25/2025 11:14:12 03/24/2003/25/2025 RENAL PANEL (10) phosphorus 3.5 mg/dL 2.8-4. 1 normal Not Available [facility] ([facility]) [address] [facility], [place], [address], 03/25/2025 11:14:12 03/24/20 25 03/25/2025 RENAL PANEL (10) albumin 2.7 g/dL 3.7-4. 7 below low normal Not Available [facility] ([facility]) [address] [facility], [place], [address], 03/25/2025 11:14:12 03/24/2003/25/2025 IRON AND TIBC iron bind.cap.(TI BC) 217 ug/dL 250-45 0 below low normal Not Available [facility] ([facility]) [address] [facility], [place], [address], 03/25/2025 11:14:13 03/24/20 25 03/25/2025 IRON AND TIBC UIBC 168 ug/dL 111-34 3 normal Not Available [facility] ([facility]) [address] [facility], [place], [address], 03/25/2025 11:14:13 03/24/2003/25/2025 IRON AND TIBC iron 49 ug/dL 38-169 normal Not Available [facility] ([facility]) [address] [facility], [place], [address], 03/25/2025 11:14:13 03/24/2003/25/2025 IRON AND TIBC iron saturation 23 % 15-55 normal Not Available [facility] ([facility]) [address] [facility], [place], [address], 03/25/2025 11:14:13 03/24/2003/25/2025 VITAM IN D, 25-HY [...] Elder aragon [place]: The [facility] . 2. Zuly de la paz [place], Makayla deras [place], [place] off-F errar i COE, et al. Evalu ation , treat ment, and preve ntion of vitam in D defic iency : an Endoc rine Socie ty clini siobhan pract ice guide line. JCEM. 2010; 96(7) :1911 -30. Not Available [facility] ([facility]) [address] [facility], [place], [address], 03/25/2025 11:14:13 03/24/20 25 03/25/2025 MIGDALIA TIN ferritin 75 NG/mL 30-400 normal Not Available [facility] ([facility]) [address] [facility], [place], [address], 03/25/2025 11:14:14 03/24/20 25 03/25/2025 PTH, INTAC T PTH, intact 113 pg/mL 15-65 above high normal Not Available [facility] ([facility]) [address] [facility], [place], [address], 03/25/2025 11:14:15 04/21/2004/21/2025 imagi ng/di agnos tic resul t No observ ation record ed. [email or web address] [facility] [address], [place], [place], [address], 04/22/2025 15:27:06 04/28/20 25 04/28/2025 US, doppl er, venou s No observ ation record ed. [facility] [address], [place], [address], 04/29/2025 08:37:03 Result Notes None recorded. Problems Name Problem SNOMED Code Status Onset Date Resolution Date Notes Provider Name and Address Organization Details Recorded Time Essential hypertens ion 97017633 Active 2015 Not Available [facility] 3 11:37:22 Deep venous thrombosi s 619088285 Active 2015 Not Available [facility] 3 11:37:22 Type 2 diabetes mellitus 58208052 Completed 201505/23/2021 Marcelina Longo, [place] [address], [place], [address] , [place] - [facility] 1 10:42:42 Hyperlipi demia 91932363 Active 2015 Not Available [facility] 3 11:37:22 Impotence Active 2015 Not Available [facility] 3 11:37:22 Long-term current use of anticoagu lant 679902018 Active 2015 Not Available [facility] 3 11:37:22 Obesity 194461425 Active 2015 Not Available [facility] 3 11:37:22 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 [facility] 3 11:37:22 Periphera l vascular disease 469128290 Active 2015 Not Available [facility] 3 11:37:22 Pulmonary embolism 35401222 Completed 201504/08/2016 Paula sheridan, [place] - [facility] 6 13:01:47 Warfarin monitorin g status 152813823 Active 2016 Not Available [facility] 3 11:37:22 Vitamin D deficienc y 67544086 Active 2020 Not Available [facility] 3 11:37:22 Hyperglyc emia due to type 2 diabetes mellitus 65473134349 9109 Active 2020 Not Available [facility] 3 11:37:22 Chronic kidney disease stage 3 803603044 Active 2020 Not Available [facility] 3 11:37:22 Chronic ki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 31738583049 5 Active 2020 Not Available [facility] 3 11:37:22 Mixed hyperlipi demia 229868251 Active 2020 Not Available [facility] 3 11:37:22 History of deep vein thrombosi s 273279525 Active 2020 Not Available [facility] 3 11:37:22 History of pulmonary embolus 745133242 Active 2020 Not Available [facility] 3 11:37:22 Benign essential hypertens ion 7467768 Active 2020 Kat Carnes, [place] [address], [place], [address] , [place] - [facility] 5 10:37:04 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 Procedures Surgical History Date Name Laterality Status Provider Name and Address Organization Details Recorded Time 03/24/20 Medication Reconcilliation completed Paula Gee [place] - [facility] 03/24/2025 13:08:38 12/30/19 A1C level 6.9 and below completed Clive Sung [employer] - [facility] 12/29/2024 10:00:50 09/22/19 A1C level 8.0 to 9.0 completed Clive Sung [employer] - [facility] 09/21/2024 14:59:34 05/19/20 24 Advance Care Planning completed Paula Gee [facility] - [facility] 05/19/2024 12:54:25 05/19/20 24 Functional Status Assessed completed Paula Gee [facility] - [facility] 05/19/2024 12:54:25 01/21/20 24 Positive Microalbumin completed Clive Sung [facility] - [facility] 01/21/2024 10:44:25 01/21/20 24 A1C level 6.9 and below completed Clive Sung [employer] - [facility] 01/21/2024 10:48:27 10/22/19 24 A1C level 6.9 and below completed Clive Sung [employer] - [facility] 10/22/2023 13:05:51 07/24/19 24 A1C level 8.0 to 9.0 completed Clive Sung [employer] - [facility] 07/24/2023 11:56:27 04/08/20 23 A1C level 6.9 and below completed Clive Sung [employer] - [facility] 04/08/2023 11:20:15 09/05/19 23 Medication Reconcilliation completed Paula [place] - [facility] 09/04/2022 13:11:20 06/13/19 23 A1C level 7.0 to 7.9 completed Clive Pineda [place] - [facility] 06/13/2022 11:10:06 03/06/20 22 A1C level 7.0 to 7.9 completed Clive Sarmientoyles [place] - [facility] 03/06/2022 13:11:24 12/04/19 22 A1C level 7.0 to 7.9 completed Clive Pineda [place] - [facility] 12/03/2021 14:19:16 11/29/19 22 Cerumen Removal completed Giovanni Glass MD [address], [place], [address] [place] [facility] 11/28/2021 10:57:35 08/30/19 [...] less than 80 mm Hg completed Myah [place] - [facility] 08/01/2020 16:31:17 08/01/19 21 Systolic B/P 130-139 mm Hg completed Myah [place] - [facility] 08/01/2020 16:31:11 08/01/19 21 A1C level 7.0 to 7.9 completed Myah [place] - [facility] 08/01/2020 16:34:05 07/26/19 21 [...] B/P less than 130 mm Hg completed Myha [place] - [facility] 04/18/2020 16:34:12 04/18/20 20 Diastolic B/P less than 80 mm Hg completed Myah [place] - [facility] 04/18/2020 16:34:19 04/18/20 20 [...] than 130 mm Hg [facility] [place] [facility] 11/17/2019 13:40:30 11/17/19 20 Diastolic B/P less than 80 mm Hg completed Paula Hay [facility] 11/17/2019 13:40:34 10/08/19 20 Systolic B/P less than 130 mm Hg completed Paula [facility] 10/08/2019 13:43:56 10/08/19 20 Diastolic B/P less than 80 mm Hg completed Paula Hay [facility] 10/08/2019 13:44:01 09/08/19 20 Systolic B/P less than 130 mm Hg completed Paula Hay [facility] 09/08/2019 12:57:34 09/08/19 20 Diastolic B/P less than 80 mm Hg completed Paula Hay [facility] 09/08/2019 12:57:39 08/11/19 20 Systolic B/P less than 130 mm Hg completed Paula Hay [facility] 08/11/2019 13:09:51 08/11/19 20 Diastolic B/P 80-89 mm Hg completed Paula [facility] 08/11/2019 13:09:55 06/10/19 20 Systolic B/P less than 130 mm Hg completed Paula Hay [facility] 06/10/2019 12:57:49 06/10/19 20 Diastolic B/P 80-89 mm Hg completed Paula Hay [facility] 06/10/2019 12:57:53 10/25/19 18 Advance Care Planning completed Corine Welch RN [address], [place], [address], [facility] 10/24/2017 08:56:49 Cataract Surgery completed Corine Welch RN [address], [place], [address], [facility] 09:14:03 Imaging Results None recorded. [...] on: 01/17/20 11 10:04AM; User: [email or web address] Sam Completi on: 07/09/19 12 Not Available Not [...] Available Not Available Nasonex 50 mcg/actua tion [place] 1 sniff bilat bid 09/15 completed Nasonex [...] : Manju ial Ocular Infectio n - (06.3798 );Prin [...] Disconti nued on: 01/10/20 11 9:10AM;U ser: [email or web address] ;Est. Completi on: 06/24/19 12;Print ed: 12/27/19 11 Not Available Not Available Not Available Avodart 0.5 mg capsule take 1 capsule (0.5 mg) by oral route once daily for 30 days 04/18 completed Avodart 0.5 mg oral capsule; Recorded Status: Recorded on: 04/18/20 08 10:59AM; Disconti nued Status: Disconti nued on: 04/18/20 08 11:05AM; User: Tima t. Completi on: 07/17/19 09;Indic ation: Symptoma tic Prostati c Hypertro phy - (.6000 );Prin hola: 04/18/20 08 Not Available Not [...] er's instruct ions. Insulin dosing requires individu alizafilemono n. 04/22 completed Levemir 100 unit/mL subcutan [...] Not Available Not Available Easy Comfort [place] 32 gauge x 5/32 USE DIRECTED DAILY [...] Updated DateTime 5 182.88 cm 26.6 kg/m2 43301.1 g 98.7 [degF] 70 /min 97 % 20 /min 0 100/70 mm[Hg] Paula Gee [place] - [facility] 5 13:12:31 Social History Question Answer Notes LastModified by Organization Details LastModified Time Tobacco Smoking Status Former Smoker Paula Gee [facility] [place] - [facility] 04/08/2016 13:03:41 Able To [...] Or The Highest Degree You Have Received? [id number] Information not available 01/18/2021 Swimming/diving No Informati [...] 04/10/2016 What Is Your Current Pack Years? 30ormanshul s Information not available 03/06/2022 Do You [...] anxious, or unable to sleep at night)? [id number] Information not available 01/18/2021 Do you have [...] colitis N Cerebrovascular Disease N Depression N Guillain-[place] N Sleep Apnea N Aneurysm N Bronchitis N Heart Disease N Suicidal Ideation N Pre-Eclampsia N Hypertension Y Osteoporosis N Immunizations Vaccine Type Date Status Note Provider Nam e and Address Organization Details Recorded Time COVID-19, mRNA, LNP-S, PF, 100 mcg/0.5mL dose or 50 mcg/0.25mL dose 1 completed Radha sheridan, [place] - [facility] 05/26/2024 10:16:32 COVID-19, mRNA, LNP-S, PF, 100 mcg/0.5mL dose or 50 mcg/0.25mL dose 1 [place] - [facility] 05/26/2024 10:16:32 Influenza, split virus, trivalent, PF 2 completed Radha sheridan [place] - [facility] 05/26/2024 10:16:32 Influenza, high-dose, quadrivalent, PF 0 completed Shahnaz Herman APRN [address], [place], [address], [place] - [facility] 03/14/2020 16:08:39 Influenza, high-dose, quadrivalent, PF 1 completed Giovanni Glass MD [address], [place], [address], [place] [facility] 03/21/2021 14:31:50 influenza, unspecified formulation 0 completed Not Available [facility] 02/01/2023 11:37:23 influenza, unspecified formulation 1 completed Not Available [facility] 02/01/2023 11:37:23 influenza, unspecified formulation 2 [place] - [facility] 05/26/2024 10:16:32 influenza, unspecified formulation 3 completed Not Available [facility] 02/01/2023 11:37:23 influenza, unspecified formulation 4 completed Not Available [facility] 02/01/2023 11:37:23 influenza, unspecified formulation 5 completed Not Available [facility] 02/01/2023 11:37:23 influenza, unspecified formulation 8 completed Not Available [facility] 02/01/2023 11:37:23 influenza, unspecified formulation 9 completed Not Available [facility] 02/01/2023 11:37:23 Influenza, split virus, quadrivalent, preservative 7 completed Not Available [facility] 06/26/2019 03:54:42 COVID-19, mRNA, LNP-S, PF, 100 mcg/0.5mL dose or 50 mcg/0.25mL dose 2 completed Giovanni Glass MD [address], [place], [address], [place] [facility] 06/21/2021 11:12:07 Influenza, high-dose, quadrivalent, PF 2 completed Marcelina Longo APRN [address], [place], [address], [place] [facility] 03/06/2022 13:31:11 Influenza, high-dose, quadrivalent, PF 3 completed Paula sheridan, [place] - [facility] 03/13/2023 09:48:17 Influenza, split virus, quadrivalent, preservative 6 completed Not Available [facility] 02/01/2023 11:37:23 zoster live 9 completed Not Available [facility] 02/01/2023 11:37:23 Influenza, high-dose, trivalent, PF 4 completed Debra Barajas MD [address], [place], [address], [place] [facility] 03/09/2024 15:47:29 Tdap 4 completed Paula [place], [place] - [facility] 05/19/2024 16:57:05 Pneumococcal conjugate PCV20, polysaccharide [id number] conjugate, adjuvant, PF 4 completed Paula [place], [place] - [facility] 05/19/2024 16:57:56 Influenza, high-dose, trivalent, PF 5 completed Giovanni Glass MD [address], [place], [address], [place] [facility] 03/24/2025 13:57:50 Influenza, high-dose, trivalent, PF 8 completed Not Available [facility] 06/26/2019 03:55:10 SARS-COV-2 (COVID-19) vaccine, UNSPECIFIED 1 completed KODI [place] - [facility] 05/26/2024 10:16:32 SARS-COV-2 (COVID-19) vaccine, UNSPECIFIED 1 completed Radha King fatimah [place] - [facility] 05/26/2024 10:16:32 Influenza, high-dose, trivalent, PF 9 completed Not Available [facility] 06/26/2019 03:56:04 Past Encounters Encounter ID Performer Location Encounter Start Date Encounter Closed Date Diagnosis/Indication Diagnosis SNOMED-CT Code Diagnosis ICD10 Code Diagnosis IMO Codes Diagnosis Note [id number] Giovanni Glass MD [address] [place] [address] 03/24/2025 12:50:33 03/24/2025 13:50:15 Obesity 192197768 E66.9 Influenza vaccine needed 8952945199 106 Z23 Benign ess ential hypertension 9832298 I10 Peripheral vascular disease 131885858 I73.9 Essential hypertension 51922129 I10 Mixed hyperlipidemia 267 865915 E78.2 Hyperlipidemia 30864583 E78.5 Long-term current use of anticoagulant 680732321 Z79.01 Deep venou s thrombosis 196888031 I82.409 History of deep vein thrombosis 409739625 Z86.718 History of pulmonary embolus 738228517 Z86.711 Hyperglyce nhan due to type 2 diabetes mellitus 2340467562 15529 E11.65 Testicular hypofunction 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 21 Peripheral neuropathy due to type 2 diabetes mellitus 4845584111 107 E11.42 Chronic sy stolic heart failure 300884139 I50.22 179646 Pruritic d isorder of skin 5583379621 L29.9 43684 Weakness o f bilateral lower limb 3153723695 56281 R29.898 297194 Overweight in adulthood with body mass index of 25 or more but less than 30 603745370 Z68.26 7932402042 Health Concerns Section Related Observation LastModified by Organization Detai ls LastModified Time None Recorded Concern Status LastModified by Organization Details LastModified Time None Recorded Payers Encounter Date Sequence Insurance Name Policy Number Policy Mcintyre Covered Member ID Mcintyre Member ID Guarantor Name 03/24/2025 1 [employer] (MEDICARE REPLACEMENT/A DVANTAGE - PPO) Owen Salazar [id number] Owen Salazar Notes Date Note Type Note [...] Needs med for itch. Giovanni Glass MD [facility] [address], [place], [address], [place] [facility] 03/24/2025 13:58:35
--- OUTSIDE RECORDS SUMMARY | 2025-05-02 11:05 | XMS_ITS | Encounter Summary ---
Author Organization Healthcare Address [address] [id number] Care Team Providers Care Municipal Firefighter Name Role Phone Pcp, No Primary Care [...] any time in the past 12 m [facility], were you homeless or living in a senior living (including now)? No 03/07/2025 [facility] Utilities Answer Date Recorded In [...] documented as of this encounter Care Teams Municipal Firefighter Relationship Specialty Start Date End Date Pcp, No [address] [place] [address] PCP - General Family Medicine 03/06/25 documented as of this encounter
--- OUTSIDE RECORDS SUMMARY | 2025-05-02 11:05 | XMS_ITS | Continuity of Care Document ---
Author Organization [facility] Address [address] [place] [address] [place] [address] Assessment No assessment recorded. Plan of Treatment Reminders Order Date Submit Date Provider Last Modified By Organization Details Last Modified Time Details Appointments Medicare AWE 40mins 2024 01:50P M Giovanni Glass MD Not available Not available Not available ESTABLISH ED PT 30 2025 11:30A M Marcelina Longo APRN Not available Not available Not available Lab HbA1c (hemoglob in A1c), blood 2024 025 [facility], [address] [place] [address] , [place], [address], 04/06/2025 10:11:07 glucose, fingersti ck, blood 2024 025 [facility], [address] [place] [address] , [place], [address], 04/06/2025 10:11:07 Referral None recorded. Procedures None recorded. Surgeries None recorded. Imaging None recorded. Medication Orders None recorded. Patient TargetsNo targets recorded. Patient Instructions Encounter Date Encounter Id Patient Instructions Last Modified By Organization Details Last Modified Time 04/06/2025 [id number] Peripheral Arterial Disease (PAD): Care Instructions [email or web address] [...] 70-99 above high normal Not Available [facility] ([facility]) [address] [place], [address], 03/25/2025 11:14:10 03/24/2003/25/2025 BMP7+ EGFR BUN 27 mg/dL 8-27 normal Not Available [facility] ([facility]) [address] [place], [address], 03/25/2025 11:14:10 03/24/20 25 03/25/2025 BMP7+ EGFR creatinine 2.75 mg/dL 0.76-1 .27 above high normal Not Available [facility] ([facility]) [address] [place], [address], 03/25/2025 11:14:10 03/24/20 25 03/25/2025 BMP7+ EGFR eGFR 22 mL/mi n/1.7 3 >59 below low normal Not Available [facility] ([facility]) [address] [place] [place], [address], 03/25/2025 11:14:10 03/24/2003/25/2025 BMP7+ EGFR sodium 142 mmol/ L 134-14 4 normal Not Available [facility] ([facility]) [address] [place], [address], 03/25/2025 11:14:10 03/24/2003/25/2025 BMP7+ EGFR potassium 4.8 mmol/ L 3.5-5. 2 normal Not Available [facility] ([facility]) [address] [place] [place], [address], 03/25/2025 11:14:10 03/24/2003/25/2025 BMP7+ EGFR chloride 111 mmol/ L 96-106 above high normal Not Available [facility] ([facility]) [address] [place] [place], [address], 03/25/2025 11:14:10 03/24/2003/25/2025 BMP7+ EGFR carbon dioxide, total 17 mmol/ L 20-29 below low normal Not Available [facility] ([facility]) [address] [place], [address], 03/25/2025 11:14:10 03/24/2003/25/2025 CBC WITH DIFFE RENTI AL/PL ATELE T WBC 4.8 x10e3 /uL 3.4-10 .8 normal Not Available [facility] ([facility]) [address] [place], [address], 03/25/2025 11:14:11 03/24/2003/25/2025 CBC WITH DIFFE RENTI AL/PL ATELE T RBC 3.30 x10e6 /uL 4.14-5 .80 below low normal Not Available [facility] ([facility]) [address] [place], [address], 03/25/2025 11:14:11 03/24/20 25 03/25/2025 CBC WITH DIFFE RENTI AL/PL ATELE T hemoglobin 9.8 g/dL 13.0-1 7.7 below low normal Not Available [facility] ([facility]) [address] [place], [address], 03/25/2025 11:14:11 03/24/2003/25/2025 CBC WITH DIFFE RENTI AL/PL ATELE T hematocrit 31.8 % 37.5-5 1.0 below low normal Not Available [facility] ([facility]) [address] [place], [address], 03/25/2025 11:14:11 03/24/2003/25/2025 CBC WITH DIFFE RENTI AL/PL ATELE T MCV 96 fL 79-97 normal Not Available [facility] ([facility]) [address] [place], [address], 03/25/2025 11:14:11 03/24/20 25 03/25/2025 CBC WITH DIFFE RENTI AL/PL ATELE T MCH 29.7 pg 26.6-3 3.0 normal Not Available [facility] ([facility]) [address] [place], [address], 03/25/2025 11:14:11 03/24/2003/25/2025 CBC WITH DIFFE RENTI AL/PL ATELE T MCHC 30.8 g/dL 31.5-3 5.7 below low normal Not Available [facility] ([facility]) [address] [place], [address], 03/25/2025 11:14:11 03/24/20 25 03/25/2025 CBC WITH DIFFE RENTI AL/PL ATELE T RDW 13.1 % 11.6-1 5.4 Not Available [facility] ([facility]) [address] [place], [address], 03/25/2025 11:14:11 03/24/2003/25/2025 CBC WITH DIFFE RENTI AL/PL ATELE T platelets 199 x10e3 /uL 150-45 0 normal Not Available [facility] ([facility]) [address] [facility], [place], [address], 03/25/2025 11:14:11 03/24/2003/25/2025 CBC WITH DIFFE RENTI AL/PL ATELE T neutrophils 54 % not estab. normal Not Available [facility] ([facility]) [address] [facility], [place], [address], 03/25/2025 11:14:11 03/24/2003/25/2025 CBC WITH DIFFE RENTI AL/PL ATELE T lymphs 31 % not estab. normal Not Available [facility] ([facility]) [address] [facility], [place], [address], 03/25/2025 11:14:11 03/24/2003/25/2025 CBC WITH DIFFE RENTI AL/PL ATELE T monocytes 12 % not estab. normal Not Available [facility] ([facility]) [address] [facility], [place], [address], 03/25/2025 11:14:11 03/24/2003/25/2025 CBC WITH DIFFE RENTI AL/PL ATELE T eos 2 % not estab. normal Not Available [facility] ([facility]) [address] [facility], [place], [address], 03/25/2025 11:14:11 03/24/2003/25/2025 CBC WITH DIFFE RENTI AL/PL ATELE T basos 1 % not estab. normal Not Available [facility] ([facility]) [address] [facility], [place], [address], 03/25/2025 11:14:11 03/24/2003/25/2025 CBC WITH DIFFE RENTI AL/PL ATELE T immature cells [employer] Not Available [facility] ([facility]) [address] [place], [address], 03/25/2025 11:14:11 03/24/2003/25/2025 CBC WITH DIFFE RENTI AL/PL ATELE T neutrophils (absolute) 2.6 x10e3 /uL 1.4-7. 0 normal Not Available [facility] ([facility]) [address] [place], [address], 03/25/2025 11:14:11 03/24/2003/25/2025 CBC WITH DIFFE RENTI AL/PL ATELE T lymphs (absolute) 1.5 x10e3 /uL 0.7-3. 1 normal Not Available [facility] ([facility]) [address] [place], [address], 03/25/2025 11:14:11 03/24/2003/25/2025 CBC WITH DIFFE RENTI AL/PL ATELE T monocytes(ab solute) 0.6 x10e3 /uL 0.1-0. 9 normal Not Available [facility] ([facility]) [address] [place], [address], 03/25/2025 11:14:11 03/24/2003/25/2025 CBC WITH DIFFE RENTI AL/PL ATELE T eos (absolute) 0.1 x10e3 /uL 0.0-0. 4 normal Not Available [facility] ([facility]) [address] [place], [address], 03/25/2025 11:14:11 03/24/2003/25/2025 CBC WITH DIFFE RENTI AL/PL ATELE T baso (absolute) 0.0 x10e3 /uL 0.0-0. 2 normal Not Available [facility] ([facility]) [address] [place], [address], 03/25/2025 11:14:11 03/24/20 25 03/25/2025 CBC WITH DIFFE RENTI AL/PL ATELE T immature granulocytes 0 % not estab. Not Available [facility] ([facility]) [address] [facility], [place], [address], 03/25/2025 11:14:11 03/24/2003/25/2025 CBC WITH DIFFE RENTI AL/PL ATELE T immature grans (abs) 0.0 x10e3 /uL 0.0-0. 1 Not Available [facility] ([facility]) [address] [facility], [place], [address], 03/25/2025 11:14:11 03/24/2003/25/2025 CBC WITH DIFFE RENTI AL/PL ATELE T NRBC [employer] Not Available [facility] ([facility]) [address] [facility], [place], [address], 03/25/2025 11:14:11 03/24/2003/25/2025 CBC WITH DIFFE RENTI AL/PL ATELE T hematology comments: [employer] Not Available [facility] ([facility]) [address] [facility], [place], [address], 03/25/2025 11:14:11 03/24/20 25 03/25/2025 RENAL PANEL (10) BUN/creatini ne ratio 10 10-24 normal Not Available [facility] ([facility]) [address] [facility], [place], [address], 03/25/2025 11:14:12 03/24/2003/25/2025 RENAL PANEL (10) calcium 8.0 mg/dL 8.6-10 .2 below low normal Not Available [facility] ([facility]) [address] [facility], [place], [address], 03/25/2025 11:14:12 03/24/20 25 03/25/2025 RENAL PANEL (10) phosphorus 3.5 mg/dL 2.8-4. 1 normal Not Available [facility] ([facility]) [address] [place], [address], 03/25/2025 11:14:12 03/24/2003/25/2025 RENAL PANEL (10) albumin 2.7 g/dL 3.7-4. 7 below low normal Not Available [facility] ([facility]) [address] [facility], [place], [address], 03/25/2025 11:14:12 03/24/2003/25/2025 IRON AND TIBC iron bind.cap.(TI BC) 217 ug/dL 250-45 0 below low normal Not Available [facility] ([facility]) [address] [facility], [place], [address], 03/25/2025 11:14:13 03/24/2003/25/2025 IRON AND TIBC UIBC 168 ug/dL 111-34 3 normal Not Available [facility] ([facility]) [address] [place], [address], 03/25/2025 11:14:13 03/24/2003/25/2025 IRON AND TIBC iron 49 ug/dL 38-169 normal Not Available [facility] ([facility]) [address] [place], [address], 03/25/2025 11:14:13 03/24/2003/25/2025 IRON AND TIBC iron saturation 23 % 15-55 normal Not Available [facility] ([facility]) [address] [place], [address], 03/25/2025 11:14:13 03/24/2003/25/2025 VITAM IN D, 25-HY [...] um and D. Elder aragon [place]: The [facility] [employer] . 2. Zuly de la paz MF, Makayla deras [place], Bisbert off-F errar i COE, et al. Evalu ation , treat ment, and preve ntion of vitam in D defic iency : an Endoc rine Socie ty clini siobhan pract ice guide line. JCEM. 2010; 96(7) :1911 -30. Not Available [facility] ([facility]) [address] [place], [address], 03/25/2025 11:14:13 03/24/20 25 03/25/2025 MIGDALIA TIN ferritin 75 NG/mL 30-400 normal Not Available [facility] ([facility]) [address] [place], [address], 03/25/2025 11:14:14 03/24/20 25 03/25/2025 PTH, INTAC T PTH, intact 113 pg/mL 15-65 above high normal Not Available [facility] ([facility]) [address] [place], [address], 03/25/2025 11:14:15 04/06/20 25 04/06/2025 HbA1c (hemo globi n A1c), blood HbA1C 8.5 % Not Available [address] , [place], [address], 04/05/2025 16:20:51 04/06/20 25 04/06/2025 gluco se, finge rstic k, blood Blood Glucose: mg/dl 254 Not Available [place] [address] [facility] , [place], [address], 04/05/2025 16:20:51 04/21/20 25 04/21/2025 imagi ng/di agnos tic resul t No observ ation record ed. [email or web address] [facility] [address], [place], [address], 04/22/2025 15:27:06 04/28/20 25 04/28/2025 US, doppl er, venou s No observ ation record ed. [email or web address] [facility] [address], [place], [address], 04/29/2025 08:37:03 Result Notes None recorded. Problems Name Problem SNOMED Code Status Onset Date Resolution Date Notes Provider Name and Address Organization Details Recorded Time Essential hypertens ion 08905767 Active 2015 Not Available [facility] 3 11:37:22 Deep venous thrombosi s 705783602 Active 2015 Not Available [facility] 3 11:37:22 Type 2 diabetes mellitus 87228797 Completed 201505/23/2021 Marcelina Longo, [employer] [address], [place], [address] , [place] - [facility] 1 10:42:42 Hyperlipi demia 47239495 Active 2015 Not Available [facility] 3 11:37:22 Impotence Active 2015 Not Available [facility] 3 11:37:22 Long-term current use of anticoagu lant 107181199 Active 2015 Not Available [facility] 3 11:37:22 Obesity 307250015 Active 2015 Not Available [facility] 3 11:37:22 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 2015 Not Available [facility] 3 11:37:22 Periphera l vascular disease 690544269 Active 2015 Not Available [facility] 3 11:37:22 Pulmonary embolism 59366316 Completed 201504/08/2016 Paula sheridan, [place] - [facility] 6 13:01:47 Warfarin monitorin g status 401941569 Active 2016 Not Available [facility] 3 11:37:22 Vitamin D deficienc y 32175651 Active 2020 Not Available [facility] 3 11:37:22 Hyperglyc emia due to type 2 diabetes mellitus 36853065254 9109 Active 2020 Not Available [facility] 3 11:37:22 Chronic kidney disease stage 3 023229978 Active 2020 Not Available [facility] 3 11:37:22 Chronic ki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 03923325781 5 Active 2020 Not Available [facility] 3 11:37:22 Mixed hyperlipi demia 704527268 Active 2020 Not Available [facility] 3 11:37:22 History of deep vein thrombosi s 864431170 Active 2020 Not Available [facility] 3 11:37:22 History of pulmonary embolus 037313939 Active 2020 Not Available [facility] 3 11:37:22 Benign essential hypertens ion 7022134 Active 2020 Kat Carnes APRN [address], [place], [address] , [place] - [facility] 5 10:37:04 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 Procedures Surgical History Date Name Laterality Status Provider Name and Address Organization Details Recorded Time 03/24/20 Medication Reconcilliation completed Paula Gee [place] - [facility] 03/24/2025 13:08:38 12/30/19 A1C level 6.9 and below completed [employer]ive [employer] - [facility] 12/29/2024 10:00:50 09/22/19 A1C level 8.0 to 9.0 completed [employer]ive [employer] - [facility] 09/21/2024 14:59:34 05/19/20 24 Advance Care Planning completed [place] [facility] 05/19/2024 12:54:25 05/19/20 Functional Status Assessed completed [place] [facility] 05/19/2024 12:54:25 01/21/20 24 Positive Microalbumin completed Clive [employer] - [facility] 01/21/2024 10:44:25 01/21/20 24 A1C level 6.9 and below completed [employer]ive [employer] - [facility] 01/21/2024 10:48:27 10/22/19 24 A1C level 6.9 and below completed [employer]ive [employer] - [facility] 10/22/2023 13:05:51 07/24/19 24 A1C level 8.0 to 9.0 completed [employer]ive [employer] - [facility] 07/24/2023 11:56:27 04/08/20 23 A1C level 6.9 and below completed [employer]ive [employer] - [facility] 04/08/2023 11:20:15 09/05/19 23 Medication Reconcilliation completed Paula [place] - [facility] 09/04/2022 13:11:20 06/13/19 23 A1C level 7.0 to 7.9 completed Clive Sung [place] - [facility] 06/13/2022 11:10:06 03/06/20 22 A1C level 7.0 to 7.9 completed Clive Sung [place] - [facility] 03/06/2022 13:11:24 12/04/19 22 A1C level 7.0 to 7.9 completed Clive Pineda [place] - [facility] 12/03/2021 14:19:16 11/29/19 22 Cerumen Removal completed Giovanni Glass MD [address], [place], [address] [place] - [facility] 11/28/2021 10:57:35 08/30/19 22 Positive Microalbumin completed Clive Pineda [place] - [facility] 08/29/2021 09:20:08 08/30/19 22 A1C level 7.0 to 7.9 completed Clive Pineda [place] - [facility] 08/29/2021 09:23:03 05/23/20 21 A1C level 7.0 to 7.9 completed Clive Pineda [place] - [facility] 05/23/2021 10:41:28 02/22/20 21 A1C level 7.0 to 7.9 completed CliveLulu Sarmientoyles [place] - [facility] 02/21/2021 08:38:20 11/03/19 21 A1C level 7.0 to 7.9 completed [place] - [facility] 11/02/2020 13:15:09 08/25/19 21 Diastolic B/P less than 80 mm Hg completed Paula Hay [place] - [facility] 08/24/2020 09:28:23 08/25/19 21 Systolic B/P 130-139 mm Hg completed Paula [place] - [facility] 08/24/2020 09:28:20 08/01/19 21 Diastolic B/P less than 80 mm Hg completed [place] - [facility] 08/01/2020 16:31:17 08/01/19 21 Systolic B/P 130-139 mm Hg completed Myah [place] - [facility] 08/01/2020 16:31:11 08/01/19 21 A1C level 7.0 to 7.9 completed [place] - [facility] 08/01/2020 16:34:05 07/26/19 21 [...] Diastolic B/P 80-89 mm Hg completed Paula Gee [place] - [facility] 03/22/2020 10:51:25 02/23/20 20 [...] B/P less than 130 mm Hg completed [place] - [facility] 11/17/2019 13:40:30 11/17/19 20 Diastolic B/P less than 80 mm Hg completed Paula [place] - [facility] 11/17/2019 13:40:34 10/08/19 20 Systolic B/P less than 130 mm Hg completed Paula [place] - [facility] 10/08/2019 13:43:56 10/08/19 20 Diastolic B/P less than 80 mm Hg completed [facility] 10/08/2019 13:44:01 09/08/19 20 Systolic B/P less than 130 mm Hg completed [facility] 09/08/2019 12:57:34 09/08/19 20 Diastolic B/P less than 80 mm Hg completed [facility] 09/08/2019 12:57:39 08/11/19 20 Systolic B/P less than 130 mm Hg completed [facility] 08/11/2019 13:09:51 08/11/19 20 Diastolic B/P 80-89 mm Hg completed [facility] 08/11/2019 13:09:55 06/10/19 20 Systolic B/P less than 130 mm Hg completed [facility] 06/10/2019 12:57:49 06/10/19 20 Diastolic B/P 80-89 mm Hg completed [facility] 06/10/2019 12:57:53 10/25/19 18 Advance Care Planning completed Corine Welch RN [address], [place], [address], [facility] 10/24/2017 08:56:49 Cataract Surgery completed Corine Welch RN [address], [place], [address], [facility] 10/24/[place] 09:14:03 Imaging Results None recorded. Procedure [...] Disconti nued on: 02/14/20 16 9:04AM;U ser: [email or web address] ;Est. Completi on: 04/20/20 13;Indic ation: Degenera [...] nued on: 01/17/20 11 10:04AM; User: varunEst . Completi on: 07/09/19 12 Not Available Not Available Not Available clarithro mycin 500 mg tablet take 1 tablet (500 mg) by oral route 2 times per day for 10 days 02/03 completed clarithr omycin 500 mg oral tablet;R ecorded Status: Recorded on: 06/14/19 09 3:27PM;D iscontin ued Status: Disconti nued on: 02/04/20 09 12:54PM; User: tiffanie De La OEstSam Completi on: 06/24/19 09;Print ed: 06/14/19 Not [...] 12/17/19 16;Indic ation: Muscle Spasm - (13.7288 50);Joss García fied: 10/18/19 16 10:20AM Not Available Not [...] nued on: 02/14/20 16 9:04AM;U ser: [email or web address] Sam Completi on: 11/02/19 13 Not Available Not [...] nued on: 07/18/19 15 1:27PM;U ser: earlywin mg;Est. Completi on: 07/06/19 15;Pharm acSegundof ied: 01/08/20 14 4:26PM Not Available Not [...] Available Not Available Nasonex 50 mcg/actua tion [place] 1 sniff bilat bid 09/15 completed Nasonex [...] 13;Indic ation: Type 2 Diabetes Mellitus - ();Prin hola: 06/04/20 12 Not Available Not Available [...] Not Available Not Available Easy Comfort Pen St[place] 32 gauge x 5/32 USE DIRECTED DAILY [...] Updated DateTime 5 182.88 cm 26.6 kg/m2 15502.1 g 97.7 [degF] 72 /min 96 % 18 /min 0 122/70 mm[Hg] Clive Sung [place] - [facility] 5 09:50:24 Social History Question Answer Notes LastModified by Organization Details LastModified Time Tobacco Smoking Status Former Smoker Paula [place], [place] - [facility] 04/08/2016 13:03:41 Able To [...] Or The Highest Degree You Have Received? [id number] Information not available 01/18/2021 Swimming/diving No Informati on not available 04/10/2016 Have There Been Any Changes To Your Family Or Social Situation? No Information not available 01/18/2021 What Is The Fluoride Status Of Your Home? Fluoridated Information not available 02/15/2021 When Did You Quit Smoking? 6-10yearssinmichaela mayra Information not available 11/07/2016 Hard Of Hearing [...] anxious, or unable to sleep at night)? [id number] Information not available 01/18/2021 Do you have [...] N Cerebrovascular Disease N Depression N Guillain-[place] N Sleep Apnea N Aneurysm N Bronchitis [...] or 50 mcg/0.25mL dose 1 completed Radha Panfilo null, [place] - [facility] 05/26/2024 10:16:32 Influenza, split virus, trivalent, PF 2 completed Radha [place]fil[place] [facility] 05/26/2024 10:16:32 Influenza, high-dose, quadrivalent, PF 0 completed Shahnaz Herman APRN [address], [place], [address], [place] [facility] 03/14/2020 16:08:39 Influenza, high-dose, quadrivalent, PF 1 completed Giovanni Glass MD [address], [place], [address], [place] [facility] 03/21/2021 14:31:50 influenza, unspecified formulation 0 completed Not Available [facility] 02/01/2023 11:37:23 influenza, unspecified formulation 1 completed Not Available [facility] 02/01/2023 11:37:23 influenza, unspecified formulation 2 completed Radha Whittaker null[place] - [facility] 05/26/2024 10:16:32 influenza, unspecified formulation 3 completed Not Available [facility] 02/01/2023 11:37:23 influenza, unspecified formulation 4 completed Not Available [facility] 02/01/2023 11:37:23 influenza, unspecified formulation 5 completed Not Available [facility] 02/01/2023 11:37:23 influenza, unspecified formulation 8 completed Not Available [facility] 02/01/2023 11:37:23 influenza, unspecified formulation 9 completed Not Available [facility] 02/01/2023 11:37:23 Influenza, split virus, quadrivalent, preservative 7 completed Not Available [facility] 06/26/2019 03:54:42 COVID-19, mRNA, LNP-S, PF, 100 mcg/0.5mL dose or 50 mcg/0.25mL dose 2 completed Giovanni Glass MD [address], [place], [address], [place] [facility] 06/21/2021 11:12:07 Influenza, high-dose, quadrivalent, PF 2 completed Marcelina Longo APRN [address], [place], [address], [place] [facility] 03/06/2022 13:31:11 Influenza, high-dose, quadrivalent, PF 3 completed Paula [place], [place] - [facility] 03/13/2023 09:48:17 Influenza, split virus, quadrivalent, preservative 6 completed Not Available [facility] 02/01/2023 11:37:23 zoster live 9 completed Not Available [facility] 02/01/2023 11:37:23 Influenza, high-dose, trivalent, PF 4 completed Debra Barajas MD [address], [place], [address], [place] [facility] 03/09/2024 15:47:29 Tdap 4 completed Paula [place], [place] - [facility] 05/19/2024 16:57:05 Pneumococcal conjugate PCV20, polysaccharide [id number] conjugate, adjuvant, PF 4 completed [place] [facility] 05/19/2024 16:57:56 Influenza, high-dose, trivalent, PF 5 completed Giovanni Glass MD [address], [place], [address], [place] [facility] 03/24/2025 13:57:50 Influenza, high-dose, trivalent, PF 8 completed Not Available [facility] 06/26/2019 03:55:10 SARS-COV-2 (COVID-19) vaccine, UNSPECIFIED 1 completed [place] - [facility] 05/26/2024 10:16:32 SARS-COV-2 (COVID-19) vaccine, UNSPECIFIED 1 completed [place] - [facility] 05/26/2024 10:16:32 Influenza, high-dose, trivalent, PF 9 completed Not Available [facility] 06/26/2019 03:56:04 Past Encounters Encounter ID Performer Location Encounter Start Date Encounter Closed Date Diagnosis/Indication Diagnosis SNOMED-CT Code Diagnosis ICD10 Code Diagnosis IMO Codes Diagnosis Note [id number] Giovanni Glass MD [address] [place] [address] 03/24/2025 12:50:33 03/24/2025 13:50:15 Obesity 626533854 E66.9 Influenza vaccine needed 5462466247 106 Z23 Benign ess ential hypertension 8723929 I10 Peripheral vascular disease 227443455 I73.9 Essential hypertension 51852314 I10 Mixed hyperlipidemia 267 110160 E78.2 Hyperlipidemia 07008413 E78.5 Long-term current use of anticoagulant 324000884 Z79.01 Deep venou s thrombosis 020725291 I82.409 History of deep vein thrombosis 715335348 Z86.718 History of pulmonary embolus 260354881 Z86.711 Hyperglyce nhan due to type 2 diabetes mellitus [id number] 69779 E11.65 Testicular hypofunction 581835383 E29.1 Vitamin D deficiency 347 27392 E55.9 Chronic ki dney disease stage 3 957768198 N18.30 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 1691389306 05 E11.22 Impotence 789191538 F52. 21 Peripheral neuropathy due to type 2 diabetes mellitus 6576874505 107 E11.42 Chronic sy stolic heart failure 977286326 I50.22 721690 Pruritic d isorder of skin 9150728905 L29.9 03646 Weakness o f bilateral lower limb 2388590261 00548 R29.898 623315 Overweight in adulthood with body mass index of 25 or more but less than 30 129796568 Z68.26 [id number] Marcelina Longo APRN [address] [place] [id number] 04/06/2025 09:36:33 04/06/2025 10:11:00 Hyperglycemia due to type 2 diabetes mellitus 2573818974 01364 E11.65 Benign ess ential hypertension 0614249 I10 Obesity 004201100 E66.9 Peripheral vascular disease 772092322 I73.9 Body mass index 25-29 - overweight 055282302 Z68.25 Peripheral neuropathy due to type 2 diabetes mellitus 5916077729 107 E11.42 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 0623337127 05 E11.22 Mixed hyperlipidemia 267 892602 E78.2 History of deep vein thrombosis 284589803 Z86.718 History of pulmonary embolus 884705223 Z86.711 Vitamin D deficiency 347 04602 E55.9 Iron defic iency anemia 59995547 D50.9 Prostate s pecific antigen above reference range 191966225 R97.20 Overweight in adulthood with body mass index of 25 or more but less than 30 579083895 Z68.26 082455 Nocturia 464386695 R35.1 31707 History of heart failure 366527380 Z86.79 240562 Health Concerns Section Related Observation LastModified by Organization Detai ls LastModified Time None Recorded Concern Status LastModified by Organization Details LastModified Time None Recorded Payers Encounter Date Sequence Insurance Name Policy Number Policy Mcintyre Covered Member ID Mcintyre Member ID Guarantor Name 04/06/2025 1 [employer] (MEDICARE REPLACEMENT/A DVANTAGE - PPO) Owen Salazar [id number] Owen Salazar Notes Date Note Type Note [...] His PCP is Dr. Glass. He sees steel chipper, Dr. Moser, every 3 months. His human resources intern is Dr. Juárez. He refuses colonoscopy or cologuard. Last PSA: 02/25/2024 - he refuses to have blood drawn today because he was stuck so many times during his recent hospitalization. Chronic issues reviewed and stable. Marcelina Longo, G[employer] [address], [place], [address], [place] - [facility] 04/06/2025 10:12:12
--- OUTSIDE RECORDS SUMMARY | 2025-05-02 11:05 | XMS_ITS | Data Portability ---
Author Organization [facility] Address [address] [place] [address] Assessment Encounter Date Assessment Date Assessment LastModified [...] HbA1c (hemoglob in A1c), blood 2024 025 [facility], [address] [place] [address] , [place], [address], 04/06/2025 10:11:07 glucose, fingersti ck, blood 2024 025 [facility], [address] [place] [address] , [place], [address], 04/06/2025 10:11:07 HbA1c (hemoglob in A1c), blood 2024 025 [facility], [address] [facility] , [place], [address], 12/29/2024 10:16:38 glucose, fingersti ck, blood 2024 025 [facility], [address] [place] [address] , [place], [address], 12/29/2024 10:16:37 [facility]erral [facility] include [facility] beds at the [facility] [address], [place], [address], 03/31/2025 15:11:09 diabetic ophthalmo logy referral 2024 025 Tl Brown MD, [address] [place], [address], 04/04/2025 07:29:55 Procedures None recorded. Surgeries None recorded. Imaging XR, chest, 2 view 2024 025 [facility] [employer], [address] [place] [address] , [place], [address], 11/24/2024 15:34:09 Medication Orders fexofenad ine 180 mg tablet 2024 025 [facility] Salazar [facility], [address] [place] [address] Dr [place], [id number], 03/24/2025 17:39:04 furosemid e 40 mg tablet 2024 025 [facility] Salazar [facility], [address] [place] [address] [place], [id number], 03/24/2025 14:13:36 prednison e 20 mg tablet 2024 025 [facility], [address] [place] [address] [place], [id number], 03/24/2025 10:56:05 loratadin e 10 mg capsule 2024 025 [facility], [address] [place] [address] Dr [place], [place], [id number], 03/24/2025 11:07:35 Patient TargetsNo targets recorded. Patient Instructions Encounter Date Encounter Id Patient Instructions Last Modified By Organization Details Last Modified Time 11/24/2024 [id number] When You Want to Lose Weight: Care Instructions [email or web address] Not available 11/24/2024 13:27:57 12/29/2024 [id number] Peripheral Arterial Disease (PAD): Care Instructions rjessee [...] months. rjessee Not available 12/29/2024 10:16:25 01/27/2025 [id number] When You Want to Lose Weight: Care Instructions tgrosser Not available 01/28/2025 08:40:45 03/24/2025 [id number] When You Want to Lose Weight: Care Instructions tgrosser Not available 03/24/2025 15:58:18 04/06/2025 [id number] Peripheral Arterial Disease (PAD): Care Instructions rjessee [...] /uL 3.4-10 .8 normal Not Available [facility] ([facility]) [address] [facility], [place], [address], 11/04/2024 12:11:54 11/04/19 25 11/04/2024 CBC WITH DIFFE RENTI AL/PL ATELE T RBC 3.70 x10e6 /uL 4.14-5 .80 below low normal Not Available [facility] ([facility]) [address] [facility], [place], [address], 11/04/2024 12:11:54 11/04/19 25 11/04/2024 CBC WITH DIFFE RENTI AL/PL ATELE T hemoglobin 11.1 g/dL 13.0-1 7.7 below low normal Not Available [facility] ([facility]) [address] [place], [address], 11/04/2024 12:11:54 11/04/1911/04/2024 CBC WITH DIFFE RENTI AL/PL ATELE T hematocrit 34.6 % 37.5-5 1.0 below low normal Not Available [facility] ([facility]) [address] [facility], [place], [address], 11/04/2024 12:11:54 11/04/19 25 11/04/2024 CBC WITH DIFFE RENTI AL/PL ATELE T MCV 94 fL 79-97 normal Not Available [facility] ([facility]) [address] [place], [address], 11/04/2024 12:11:54 11/04/1911/04/2024 CBC WITH DIFFE RENTI AL/PL ATELE T MCH 30.0 pg 26.6-3 3.0 normal Not Available [facility] ([facility]) [address] [place], [address], 11/04/2024 12:11:54 11/04/19 25 11/04/2024 CBC WITH DIFFE RENTI AL/PL ATELE T MCHC 32.1 g/dL 31.5-3 5.7 normal Not Available [facility] ([facility]) [address] [place], [address], 11/04/2024 12:11:54 11/04/19 25 11/04/2024 CBC WITH DIFFE RENTI AL/PL ATELE T RDW 13.3 % 11.6-1 5.4 Not Available [facility] ([facility]) [address] [facility], [place], [address], 11/04/2024 12:11:54 11/04/19 25 11/04/2024 CBC WITH DIFFE RENTI AL/PL ATELE T platelets 241 x10e3 /uL 150-45 0 normal Not Available [facility] ([facility]) [address] [place], [address], 11/04/2024 12:11:54 11/04/19 25 11/04/2024 CBC WITH DIFFE RENTI AL/PL ATELE T neutrophils 66 % not estab. normal Not Available [facility] ([facility]) [address] [facility], [place], [address], 11/04/2024 12:11:54 11/04/1911/04/2024 CBC WITH DIFFE RENTI AL/PL ATELE T lymphs 20 % not estab. normal Not Available [facility] ([facility]) [address] [facility], [place], [address], 11/04/2024 12:11:54 11/04/1911/04/2024 CBC WITH DIFFE RENTI AL/PL ATELE T monocytes 9 % not estab. normal Not Available [facility] ([facility]) [address] [place], [address], 11/04/2024 12:11:54 11/04/1911/04/2024 CBC WITH DIFFE RENTI AL/PL ATELE T eos 4 % not estab. normal Not Available [facility] ([facility]) [address] [place], [address], 11/04/2024 12:11:54 11/04/19 25 11/04/2024 CBC WITH DIFFE RENTI AL/PL ATELE T basos 1 % not estab. normal Not Available [facility] ([facility]) [address] [place], [address], 11/04/2024 12:11:54 11/04/19 25 11/04/2024 CBC WITH DIFFE RENTI AL/PL ATELE T immature cells MUNICIPAL SERVICES MANAGER Not Available [facility] ([facility]) [address] [place], [address], 11/04/2024 12:11:54 11/04/19 25 11/04/2024 CBC WITH DIFFE RENTI AL/PL ATELE T neutrophils (absolute) 4.6 x10e3 /uL 1.4-7. 0 normal Not Available [facility] ([facility]) [address] [place], [address], 11/04/2024 12:11:54 11/04/19 25 11/04/2024 CBC WITH DIFFE RENTI AL/PL ATELE T lymphs (absolute) 1.4 x10e3 /uL 0.7-3. 1 normal Not Available [facility] ([facility]) [address] [place], [address], 11/04/2024 12:11:54 11/04/1911/04/2024 CBC WITH DIFFE RENTI AL/PL ATELE T monocytes(ab solute) 0.6 x10e3 /uL 0.1-0. 9 normal Not Available [facility] ([facility]) [address] [place], [address], 11/04/2024 12:11:54 11/04/19 25 11/04/2024 CBC WITH DIFFE RENTI AL/PL ATELE T eos (absolute) 0.3 x10e3 /uL 0.0-0. 4 normal Not Available [facility] ([facility]) [address] [place], [address], 11/04/2024 12:11:54 11/04/19 25 11/04/2024 CBC WITH DIFFE RENTI AL/PL ATELE T baso (absolute) 0.0 x10e3 /uL 0.0-0. 2 normal Not Available [facility] ([facility]) [address] [facility], [place], [address], 11/04/2024 12:11:54 11/04/19 25 11/04/2024 CBC WITH DIFFE RENTI AL/PL ATELE T immature granulocytes 0 % not estab. Not Available [facility] ([facility]) [address] [facility], [place], [address], 11/04/2024 12:11:54 11/04/19 25 11/04/2024 CBC WITH DIFFE RENTI AL/PL ATELE T immature grans (abs) 0.0 x10e3 /uL 0.0-0. 1 Not Available [facility] ([facility]) [address] [facility], [place], [address], 11/04/2024 12:11:54 11/04/1911/04/2024 CBC WITH DIFFE RENTI AL/PL ATELE T NRBC MUNICIPAL SERVICES MANAGER Not Available [facility] ([facility]) [address] [facility], [place], [address], 11/04/2024 12:11:54 11/04/19 25 11/04/2024 CBC WITH DIFFE RENTI AL/PL ATELE T hematology comments: MUNICIPAL SERVICES MANAGER Not Available [facility] ([facility]) [address] [place], [address], 11/04/2024 12:11:54 11/04/1911/04/2024 URINA LYSIS , ROUTI NE specific gravity 1.012 1.005- 1.030 normal Not Available [facility] ([facility]) [address] [place], [address], 11/04/2024 12:11:55 11/04/19 25 11/04/2024 URINA LYSIS , ROUTI NE pH 6.0 5.0-7. 5 normal Not Available [facility] ([facility]) [address] [place], [address], 11/04/2024 12:11:55 11/04/19 25 11/04/2024 URINA LYSIS , ROUTI NE urine-color Yellow yellow Not Available [facility] ([facility]) [address] [place], [address], 11/04/2024 12:11:55 11/04/19 25 11/04/2024 URINA LYSIS , ROUTI NE appearance Clear clear Not Available [facility] ([facility]) [address] [place], [address], 11/04/2024 12:11:55 11/04/19 25 11/04/2024 URINA LYSIS , ROUTI NE WBC esterase Negati ve negati ve Not Available [facility] ([facility]) [address] [place], [address], 11/04/2024 12:11:55 11/04/19 25 11/04/2024 URINA LYSIS , ROUTI NE protein 2+ negati ve/tra ce abnormal Not Available [facility] ([facility]) [address] [place], [address], 11/04/2024 12:11:55 11/04/19 25 11/04/2024 URINA LYSIS , ROUTI NE glucose 1+ negati ve abnormal Not Available [facility] ([facility]) [address] [place], [address], 11/04/2024 12:11:55 11/04/19 25 11/04/2024 URINA LYSIS , ROUTI NE ketones Negati ve negati ve Not Available [facility] ([facility]) [address] [place], [address], 11/04/2024 12:11:55 11/04/19 25 11/04/2024 URINA LYSIS , ROUTI NE occult blood Negati ve negati ve Not Available [facility] ([facility]) [address] [facility] [place], [address], 11/04/2024 12:11:55 11/04/19 25 11/04/2024 URINA LYSIS , ROUTI NE bilirubin Negati ve negati ve Not Available [facility] ([facility]) [address] [place], [address], 11/04/2024 12:11:55 11/04/19 25 11/04/2024 URINA LYSIS , ROUTI NE urobilinogen ,semi-qn 0.2 mg/dL 0.2-1. 0 normal Not Available [facility] ([facility]) [address] [place], [address], 11/04/2024 12:11:55 11/04/19 25 11/04/2024 URINA LYSIS , ROUTI NE nitrite, urine Negati ve negati ve Not Available [facility] ([facility]) [address] [place], [address], 11/04/2024 12:11:55 11/04/1911/04/2024 URINA LYSIS , ROUTI NE microscopic examination See below: Micro scopi c was indic ated and was perfo rmed. Not Available [facility] ([facility]) [address] [facility], [place], [address], 11/04/2024 12:11:55 11/04/1911/04/2024 URINA LYSIS , ROUTI NE WBC None seen /hpf 0 - 5 Not Available [facility] ([facility]) [address] [place], [address], 11/04/2024 12:11:55 11/04/19 25 11/04/2024 URINA LYSIS , ROUTI NE RBC None seen /hpf 0 - 2 Not Available [facility] ([facility]) [address] [place], [address], 11/04/2024 12:11:55 11/04/19 25 11/04/2024 URINA LYSIS , ROUTI NE epithelial cells (non renal) None seen /hpf 0 - 10 Not Available [facility] ([facility]) [address] [facility], [place], [address], 11/04/2024 12:11:55 11/04/19 25 11/04/2024 URINA LYSIS , ROUTI NE epithelial cells (renal) MUNICIPAL SERVICES MANAGER Not Available [facility] ([facility]) [address] [facility], [place], [address], 11/04/2024 12:11:55 11/04/19 25 11/04/2024 URINA LYSIS , ROUTI NE casts None seen /lpf none seen Not Available [facility] ([facility]) [address] [facility], [place], [address], 11/04/2024 12:11:55 11/04/19 25 11/04/2024 URINA LYSIS , ROUTI NE cast type MUNICIPAL SERVICES MANAGER Not Available [facility] ([facility]) [address] [facility], [place], [address], 11/04/2024 12:11:55 11/04/19 25 11/04/2024 URINA LYSIS , ROUTI NE crystals MUNICIPAL SERVICES MANAGER Not Available [facility] ([facility]) [address] [facility], [place], [address], 11/04/2024 12:11:55 11/04/19 25 11/04/2024 URINA LYSIS , ROUTI NE crystal type MUNICIPAL SERVICES MANAGER Not Available [facility] ([facility]) [address] [facility], [place], [address], 11/04/2024 12:11:55 11/04/19 25 11/04/2024 URINA LYSIS , ROUTI NE mucus threads MUNICIPAL SERVICES MANAGER Not Available [facility] ([facility]) [address] [facility], [place], [address], 11/04/2024 12:11:55 11/04/19 25 11/04/2024 URINA LYSIS , ROUTI NE bacteria None seen none seen/f ew Not Available [facility] ([facility]) [address] [facility], [place], [address], 11/04/2024 12:11:55 11/04/19 25 11/04/2024 URINA LYSIS , ROUTI NE yeast MUNICIPAL SERVICES MANAGER Not Available [facility] ([facility]) [address] [facility], [place], [address], 11/04/2024 12:11:55 11/04/19 25 11/04/2024 URINA LYSIS , ROUTI NE trichomonas MUNICIPAL SERVICES MANAGER Not Available [facility] ([facility]) [address] [facility], [place], [address], 11/04/2024 12:11:55 11/04/19 25 11/04/2024 URINA LYSIS , ROUTI NE comment MUNICIPAL SERVICES MANAGER Not Available [facility] ([facility]) [address] [facility], [place], [address], 11/04/2024 12:11:55 11/04/1911/04/2024 RENAL PANEL (10) glucose 184 mg/dL 70-99 above high normal Not Available [facility] ([facility]) [address] [facility], [place], [address], 11/04/2024 12:11:56 11/04/1911/04/2024 RENAL PANEL (10) BUN 60 mg/dL 8-27 above high normal Not Available [facility] ([facility]) [address] [place], [address], 11/04/2024 12:11:56 11/04/1911/04/2024 RENAL PANEL (10) creatinine 4.79 mg/dL 0.76-1 .27 above high normal Not Available [facility] ([facility]) [address] [place], [address], 11/04/2024 12:11:56 11/04/19 11/04/2024 RENAL PANEL (10) eGFR 11 mL/mi n/1.7 3 >59 below low normal Not Available [facility] ([facility]) [address] [place], [address], 11/04/2024 12:11:56 11/04/19 25 11/04/2024 RENAL PANEL (10) BUN/creatini ne ratio 13 10-24 normal Not Available [facility] ([facility]) [address] [place], [address], 11/04/2024 12:11:56 11/04/19 25 11/04/2024 RENAL PANEL (10) sodium 139 mmol/ L 134-14 4 normal Not Available [facility] ([facility]) [address] [place], [address], 11/04/2024 12:11:56 11/04/19 25 11/04/2024 RENAL PANEL (10) potassium 4.1 mmol/ L 3.5-5. 2 normal Not Available [facility] ([facility]) [address] [place], [address], 11/04/2024 12:11:56 11/04/19 25 11/04/2024 RENAL PANEL (10) chloride 105 mmol/ L 96-106 normal Not Available [facility] ([facility]) [address] [place], [address], 11/04/2024 12:11:56 11/04/19 25 11/04/2024 RENAL PANEL (10) carbon dioxide, total 17 mmol/ L 20-29 below low normal Not Available [facility] ([facility]) [address] [place], [address], 11/04/2024 12:11:56 11/04/19 25 11/04/2024 RENAL PANEL (10) calcium 9.0 mg/dL 8.6-10 .2 normal Not Available [facility] ([facility]) [address] [facility], [place], [address], 11/04/2024 12:11:56 11/04/19 25 11/04/2024 RENAL PANEL (10) phosphorus 4.3 mg/dL 2.8-4. 1 above high normal Not Available [facility] ([facility]) [address] [facility], [place], [address], 11/04/2024 12:11:56 11/04/19 25 11/04/2024 RENAL PANEL (10) albumin 3.9 g/dL 3.7-4. 7 normal Not Available [facility] ([facility]) [address] [place], [address], 11/04/2024 12:11:56 11/04/19 25 11/04/2024 IRON AND TIBC iron bind.cap.(TI BC) 340 ug/dL 250-45 0 normal Not Available [facility] ([facility]) [address] [place], [address], 11/04/2024 12:11:56 11/04/19 25 11/04/2024 IRON AND TIBC UIBC 267 ug/dL 111-34 3 normal Not Available [facility] ([facility]) [address] [facility], [place], [address], 11/04/2024 12:11:56 11/04/19 25 11/04/2024 IRON AND TIBC iron 73 ug/dL 38-169 normal Not Available [facility] ([facility]) [address] [place], [address], 11/04/2024 12:11:56 11/04/19 25 11/04/2024 IRON AND TIBC iron saturation 21 % 15-55 normal Not Available [facility] ([facility]) [address] [place], [address], 11/04/2024 12:11:56 11/04/19 25 11/04/2024 VITAM IN [...] um and D. Elder aragon [place]: [facility] [employer] . 2. Zuly de la paz [place], Makayla deras [place], [place] off-[place] tiki i [place]E, et al. Evalu ation , treat ment, and preve ntion of vitam in D defic iency : an Endoc rine Socie ty clini siobhan pract ice guide line. JCEM. 2010; 96(7) :1911 -30. Not Available [facility] ([place] [facility]) [address] [place], [address], 11/04/2024 12:11:57 11/04/19 25 11/04/2024 MGIDALIA TIN ferritin 77 NG/mL 30-400 normal Not Available [facility] ([facility]) [address] [place], [address], 11/04/2024 12:11:58 11/04/19 25 11/04/2024 PROTE IN,TO PAULINO,U RINE protein,tota l,urine 123.4 mg/dL not estab. normal Not Available [facility] ([facility]) [address] [place], [address], 11/04/2024 12:11:58 11/04/19 25 11/04/2024 CREAT ININE , URINE creatinine, urine 57.3 mg/dL not estab. normal Not Available [facility] ([facility]) [address] [place], [address], 11/04/2024 12:11:59 11/04/19 25 11/04/2024 PTH, INTAC T PTH, intact 102 pg/mL 15-65 above high normal Not Available [facility] ([facility]) [address] [place], [address], 11/04/2024 12:11:59 11/25/19 25 11/25/2024 BASIC METAB OLIC PANEL (8) glucose 99 mg/dL 70-99 normal Not Available [facility] ([facility]) [address] [place], [address], 11/25/2024 04:10:06 11/25/19 25 11/25/2024 BASIC METAB OLIC PANEL (8) BUN 60 mg/dL 8-27 above high normal Not Available [facility] ([facility]) [address] [place], [address], 11/25/2024 04:10:06 11/25/19 25 11/25/2024 BASIC METAB OLIC PANEL (8) creatinine 4.44 mg/dL 0.76-1 .27 above high normal Not Available [facility] ([facility]) [address] [place], [address], 11/25/2024 04:10:06 11/25/19 25 11/25/2024 BASIC METAB OLIC PANEL (8) eGFR 12 mL/mi n/1.7 3 >59 below low normal Not Available [facility] ([facility]) [address] [place], [address], 11/25/2024 04:10:06 11/25/19 25 11/25/2024 BASIC METAB OLIC PANEL (8) BUN/creatini ne ratio 14 10-24 normal Not Available [facility] ([facility]) [address] [place], [address], 11/25/2024 04:10:06 11/25/19 25 11/25/2024 BASIC METAB OLIC PANEL (8) sodium 138 mmol/ L 134-14 4 normal Not Available [facility] ([facility]) [address] [place], [address], 11/25/2024 04:10:06 11/25/19 25 11/25/2024 BASIC METAB OLIC PANEL (8) potassium 4.7 mmol/ L 3.5-5. 2 normal Not Available [facility] ([facility]) [address] [place], [address], 11/25/2024 04:10:06 11/25/1911/25/2024 BASIC METAB OLIC PANEL (8) chloride 104 mmol/ L 96-106 normal Not Available [facility] ([facility]) [address] [place], [address], 11/25/2024 04:10:06 11/25/19 25 11/25/2024 BASIC METAB OLIC PANEL (8) carbon dioxide, total 19 mmol/ L 20-29 below low normal Not Available [facility] ([facility]) [address] [place], [address], 11/25/2024 04:10:06 11/25/19 25 11/25/2024 BASIC METAB OLIC PANEL (8) calcium 9.3 mg/dL 8.6-10 .2 normal Not Available [facility] ([facility]) [address] [place], [address], 11/25/2024 04:10:06 12/22/19 25 12/22/2024 BASIC METAB OLIC PANEL (8) glucose 151 mg/dL 70-99 above high normal Not Available [facility] ([facility]) [address] [place], [address], 12/22/2024 04:10:01 12/22/19 25 12/22/2024 BASIC METAB OLIC PANEL (8) BUN 40 mg/dL 8-27 above high normal Not Available [facility] ([facility]) [address] [place], [address], 12/22/2024 04:10:01 12/22/1912/22/2024 BASIC METAB OLIC PANEL (8) creatinine 3.32 mg/dL 0.76-1 .27 above high normal Not Available [facility] ([facility]) [address] [place], [address], 12/22/2024 04:10:01 12/22/1912/22/2024 BASIC METAB OLIC PANEL (8) eGFR 18 mL/mi n/1.7 3 >59 below low normal Not Available [facility] ([facility]) [address] [place], [address], 12/22/2024 04:10:01 12/22/1912/22/2024 BASIC METAB OLIC PANEL (8) BUN/creatini ne ratio 12 10-24 normal Not Available [facility] ([facility]) [address] [place], [address], 12/22/2024 04:10:01 12/22/1912/22/2024 BASIC METAB OLIC PANEL (8) sodium 140 mmol/ L 134-14 4 normal Not Available [facility] ([facility]) [address] [place], [address], 12/22/2024 04:10:01 12/22/1912/22/2024 BASIC METAB OLIC PANEL (8) potassium 4.4 mmol/ L 3.5-5. 2 normal Not Available [facility] ([facility]) [address] [place], [address], 12/22/2024 04:10:01 12/22/1912/22/2024 BASIC METAB OLIC PANEL (8) chloride 109 mmol/ L 96-106 above high normal Not Available [facility] ([facility]) [address] [place], [address], 12/22/2024 04:10:01 12/22/19 25 12/22/2024 BASIC METAB OLIC PANEL (8) carbon dioxide, total 17 mmol/ L 20-29 below low normal Not Available [facility] ([facility]) [address] [facility], [place], [address], 12/22/2024 04:10:01 12/22/19 25 12/22/2024 BASIC METAB OLIC PANEL (8) calcium 9.0 mg/dL 8.6-10 .2 normal Not Available [facility] ([facility]) [address] [facility], [place], [address], 12/22/2024 04:10:01 12/30/19 25 12/29/2024 HbA1c (hemo globi n A1c), blood HbA1C 6.5 % Not Available [address] , [place], [address], 12/27/2024 14:25:45 12/30/19 25 12/29/2024 gluco se, finge rstic k, blood Blood Glucose: mg/dl 224 Not Available [address] , [place], [address], 12/27/2024 14:25:46 01/25/20 25 01/24/2025 CBC WITH DIFFE RENTI AL/PL ATELE T WBC 7.2 x10e3 /uL 3.4-10 .8 normal Not Available [facility] ([facility]) [address] [facility], [place], [address], 01/25/2025 11:12:07 01/25/20 25 01/24/2025 CBC WITH DIFFE RENTI AL/PL ATELE T RBC 3.53 x10e6 /uL 4.14-5 .80 below low normal Not Available [facility] ([facility]) [address] [facility], [place], [address], 01/25/2025 11:12:07 01/25/20 25 01/24/2025 CBC WITH DIFFE RENTI AL/PL ATELE T hemoglobin 10.8 g/dL 13.0-1 7.7 below low normal Not Available [facility] ([facility]) [address] [place], [address], 01/25/2025 11:12:07 01/25/20 25 01/24/2025 CBC WITH DIFFE RENTI AL/PL ATELE T hematocrit 34.5 % 37.5-5 1.0 below low normal Not Available [facility] ([facility]) [address] [place], [address], 01/25/2025 11:12:07 01/25/20 25 01/24/2025 CBC WITH DIFFE RENTI AL/PL ATELE T MCV 98 fL 79-97 above high normal Not Available [facility] ([facility]) [address] [place], [address], 01/25/2025 11:12:07 01/25/20 25 01/24/2025 CBC WITH DIFFE RENTI AL/PL ATELE T MCH 30.6 pg 26.6-3 3.0 normal Not Available [facility] ([facility]) [address] [place], [address], 01/25/2025 11:12:07 01/25/20 25 01/24/2025 CBC WITH DIFFE RENTI AL/PL ATELE T MCHC 31.3 g/dL 31.5-3 5.7 below low normal Not Available [facility] ([facility]) [address] [place], [address], 01/25/2025 11:12:07 01/25/20 25 01/24/2025 CBC WITH DIFFE RENTI AL/PL ATELE T RDW 12.6 % 11.6-1 5.4 Not Available [facility] ([facility]) [address] [place], [address], 01/25/2025 11:12:07 01/25/20 25 01/24/2025 CBC WITH DIFFE RENTI AL/PL ATELE T platelets 237 x10e3 /uL 150-45 0 normal Not Available [facility] ([facility]) [address] [facility], [place], [address], 01/25/2025 11:12:07 01/25/20 25 01/24/2025 CBC WITH DIFFE RENTI AL/PL ATELE T neutrophils 57 % not estab. normal Not Available [facility] ([facility]) [address] [facility], [place], [address], 01/25/2025 11:12:07 01/25/20 25 01/24/2025 CBC WITH DIFFE RENTI AL/PL ATELE T lymphs 24 % not estab. normal Not Available [facility] ([facility]) [address] [facility], [place], [address], 01/25/2025 11:12:07 01/25/20 25 01/24/2025 CBC WITH DIFFE RENTI AL/PL ATELE T monocytes 11 % not estab. normal Not Available [facility] ([facility]) [address] [facility], [place], [address], 01/25/2025 11:12:07 01/25/20 25 01/24/2025 CBC WITH DIFFE RENTI AL/PL ATELE T eos 8 % not estab. normal Not Available [facility] ([facility]) [address] [facility], [place], [address], 01/25/2025 11:12:07 01/25/20 25 01/24/2025 CBC WITH DIFFE RENTI AL/PL ATELE T basos 0 % not estab. normal Not Available [facility] ([facility]) [address] [facility], [place], [address], 01/25/2025 11:12:07 01/25/20 25 01/24/2025 CBC WITH DIFFE RENTI AL/PL ATELE T immature cells MUNICIPAL SERVICES MANAGER Not Available [facility] ([facility]) [address] [place], [address], 01/25/2025 11:12:07 01/25/20 25 01/24/2025 CBC WITH DIFFE RENTI AL/PL ATELE T neutrophils (absolute) 4.1 x10e3 /uL 1.4-7. 0 normal Not Available [facility] ([facility]) [address] [place], [address], 01/25/2025 11:12:07 01/25/20 25 01/24/2025 CBC WITH DIFFE RENTI AL/PL ATELE T lymphs (absolute) 1.7 x10e3 /uL 0.7-3. 1 normal Not Available [facility] ([facility]) [address] [place], [address], 01/25/2025 11:12:07 01/25/20 25 01/24/2025 CBC WITH DIFFE RENTI AL/PL ATELE T monocytes(ab solute) 0.8 x10e3 /uL 0.1-0. 9 normal Not Available [facility] ([facility]) [address] [place], [address], 01/25/2025 11:12:07 01/25/20 25 01/24/2025 CBC WITH DIFFE RENTI AL/PL ATELE T eos (absolute) 0.6 x10e3 /uL 0.0-0. 4 above high normal Not Available [facility] ([facility]) [address] [place], [address], 01/25/2025 11:12:07 01/25/20 25 01/24/2025 CBC WITH DIFFE RENTI AL/PL ATELE T baso (absolute) 0.0 x10e3 /uL 0.0-0. 2 normal Not Available [facility] ([facility]) [address] [place], [address], 01/25/2025 11:12:07 01/25/20 25 01/24/2025 CBC WITH DIFFE RENTI AL/PL ATELE T immature granulocytes 0 % not estab. Not Available [facility] ([facility]) [address] [facility], [place], [address], 01/25/2025 11:12:07 01/25/20 25 01/24/2025 CBC WITH DIFFE RENTI AL/PL ATELE T immature grans (abs) 0.0 x10e3 /uL 0.0-0. 1 Not Available [facility] ([facility]) [address] [facility], [place], [address], 01/25/2025 11:12:07 01/25/20 25 01/24/2025 CBC WITH DIFFE RENTI AL/PL ATELE T NRBC MUNICIPAL SERVICES MANAGER Not Available [facility] ([facility]) [address] [facility], [place], [address], 01/25/2025 11:12:07 01/25/2001/24/2025 CBC WITH DIFFE RENTI AL/PL ATELE T hematology comments: MUNICIPAL SERVICES MANAGER Not Available [facility] ([facility]) [address] [facility], [place], [address], 01/25/2025 11:12:07 01/25/2001/25/2025 URINA LYSIS , ROUTI NE specific gravity 1.013 1.005- 1.030 normal Not Available [facility] ([facility]) [address] [facility], [place], [address], 01/25/2025 11:12:08 01/25/2001/25/2025 URINA LYSIS , ROUTI NE pH 6.0 5.0-7. 5 normal Not Available [facility] ([facility]) [address] [facility], [place], [address], 01/25/2025 11:12:08 01/25/20 25 01/25/2025 URINA LYSIS , ROUTI NE urine-color Yellow yellow Not Available [facility] ([facility]) [address] [facility], [place], [address], 01/25/2025 11:12:08 01/25/20 25 01/25/2025 URINA LYSIS , ROUTI NE appearance Clear clear Not Available [facility] ([facility]) [address] [facility], [place], [address], 01/25/2025 11:12:08 01/25/20 25 01/25/2025 URINA LYSIS , ROUTI NE WBC esterase Negati ve negati ve Not Available [facility] ([facility]) [address] [facility], [place], [address], 01/25/2025 11:12:08 01/25/20 25 01/25/2025 URINA LYSIS , ROUTI NE protein 3+ negati ve/tra ce abnormal Not Available [facility] ([facility]) [address] [facility], [place], [address], 01/25/2025 11:12:08 01/25/2001/25/2025 URINA LYSIS , ROUTI NE glucose Negati ve negati ve Not Available [facility] ([facility]) [address] [facility], [place], [address], 01/25/2025 11:12:08 01/25/20 25 01/25/2025 URINA LYSIS , ROUTI NE ketones Negati ve negati ve Not Available [facility] ([facility]) [address] [place], [address], 01/25/2025 11:12:08 01/25/20 25 01/25/2025 URINA LYSIS , ROUTI NE occult blood 1+ negati ve abnormal Not Available [facility] ([facility]) [address] [place], [address], 01/25/2025 11:12:08 01/25/20 25 01/25/2025 URINA LYSIS , ROUTI NE bilirubin Negati ve negati ve Not Available [facility] ([facility]) [address] [place], [address], 01/25/2025 11:12:08 01/25/20 25 01/25/2025 URINA LYSIS , ROUTI NE urobilinogen ,semi-qn 0.2 mg/dL 0.2-1. 0 normal Not Available [facility] ([facility]) [address] [place], [address], 01/25/2025 11:12:08 01/25/2001/25/2025 URINA LYSIS , ROUTI NE nitrite, urine Negati ve negati ve Not Available [facility] ([facility]) [address] [facility], [place], [address], 01/25/2025 11:12:08 01/25/20 25 01/25/2025 URINA LYSIS , ROUTI NE microscopic examination See below: Micro scopi c was indic ated and was perfo rmed. Not Available [facility] ([facility]) [address] [place], [address], 01/25/2025 11:12:08 01/25/20 25 01/25/2025 URINA LYSIS , ROUTI NE WBC None seen /hpf 0 - 5 Not Available [facility] ([facility]) [address] [place], [address], 01/25/2025 11:12:08 01/25/20 25 01/25/2025 URINA LYSIS , ROUTI NE RBC None seen /hpf 0 - 2 Not Available [facility] ([facility]) [address] [place], [address], 01/25/2025 11:12:08 01/25/20 25 01/25/2025 URINA LYSIS , ROUTI NE epithelial cells (non renal) None seen /hpf 0 - 10 Not Available [facility] ([facility]) [address] [facility], [place], [address], 01/25/2025 11:12:08 01/25/20 25 01/25/2025 URINA LYSIS , ROUTI NE epithelial cells (renal) MUNICIPAL SERVICES MANAGER Not Available [facility] ([facility]) [address] [facility], [place], [address], 01/25/2025 11:12:08 01/25/20 25 01/25/2025 URINA LYSIS , ROUTI NE casts None seen /lpf none seen Not Available [facility] ([facility]) [address] [facility], [place], [address], 01/25/2025 11:12:08 01/25/20 25 01/25/2025 URINA LYSIS , ROUTI NE cast type MUNICIPAL SERVICES MANAGER Not Available [facility] ([facility]) [address] [facility], [place], [address], 01/25/2025 11:12:08 01/25/20 25 01/25/2025 URINA LYSIS , ROUTI NE crystals MUNICIPAL SERVICES MANAGER Not Available [facility] ([facility]) [address] [facility], [place], [address], 01/25/2025 11:12:08 01/25/20 25 01/25/2025 URINA LYSIS , ROUTI NE crystal type MUNICIPAL SERVICES MANAGER Not Available [facility] ([facility]) [address] [facility], [place], [address], 01/25/2025 11:12:08 01/25/20 25 01/25/2025 URINA LYSIS , ROUTI NE mucus threads MUNICIPAL SERVICES MANAGER Not Available [facility] ([facility]) [address] [facility], [place], [address], 01/25/2025 11:12:08 01/25/20 25 01/25/2025 URINA LYSIS , ROUTI NE bacteria None seen none seen/f ew Not Available [facility] ([facility]) [address] [facility], [place], [address], 01/25/2025 11:12:08 01/25/20 25 01/25/2025 URINA LYSIS , ROUTI NE yeast MUNICIPAL SERVICES MANAGER Not Available [facility] ([facility]) [address] [facility], [place], [address], 01/25/2025 11:12:08 01/25/20 25 01/25/2025 URINA LYSIS , ROUTI NE trichomonas MUNICIPAL SERVICES MANAGER Not Available [facility] ([facility]) [address] [facility], [place], [address], 01/25/2025 11:12:08 01/25/20 25 01/25/2025 URINA LYSIS , ROUTI NE comment MUNICIPAL SERVICES MANAGER Not Available [facility] ([facility]) [address] [facility], [place], [address], 01/25/2025 11:12:08 01/25/20 25 01/25/2025 RENAL PANEL (10) glucose 124 mg/dL 70-99 above high normal Not Available [facility] ([facility]) [address] [place], [address], 01/25/2025 11:12:09 01/25/20 25 01/25/2025 RENAL PANEL (10) BUN 55 mg/dL 8-27 above high normal Not Available [facility] ([facility]) [address] [place], [address], 01/25/2025 11:12:09 01/25/20 25 01/25/2025 RENAL PANEL (10) creatinine 3.72 mg/dL 0.76-1 .27 above high normal Not Available [facility] ([facility]) [address] [place], [address], 01/25/2025 11:12:09 01/25/20 25 01/25/2025 RENAL PANEL (10) eGFR 15 mL/mi n/1.7 3 >59 below low normal Not Available [facility] ([facility]) [address], [place], [address], 01/25/2025 11:12:09 01/25/20 25 01/25/2025 RENAL PANEL (10) BUN/creatini ne ratio 15 10-24 normal Not Available [facility] ([facility]) [address] [place], [address], 01/25/2025 11:12:09 01/25/20 25 01/25/2025 RENAL PANEL (10) sodium 138 mmol/ L 134-14 4 normal Not Available [facility] ([facility]) [address] [place], [address], 01/25/2025 11:12:09 01/25/20 25 01/25/2025 RENAL PANEL (10) potassium 4.6 mmol/ L 3.5-5. 2 normal Not Available [facility] ([facility]) [address] [facility], [place], [address], 01/25/2025 11:12:09 01/25/20 25 01/25/2025 RENAL PANEL (10) chloride 107 mmol/ L 96-106 above high normal Not Available [facility] ([facility]) [address] [place], [address], 01/25/2025 11:12:09 01/25/20 25 01/25/2025 RENAL PANEL (10) carbon dioxide, total 16 mmol/ L 20-29 below low normal Not Available [facility] ([facility]) [address] [place], [address], 01/25/2025 11:12:09 01/25/20 25 01/25/2025 RENAL PANEL (10) calcium 9.0 mg/dL 8.6-10 .2 normal Not Available [facility] ([facility]) [address] [place], [address], 01/25/2025 11:12:09 01/25/20 25 01/25/2025 RENAL PANEL (10) phosphorus 2.8 mg/dL 2.8-4. 1 normal Not Available [facility] ([facility]) [address] [place], [address], 01/25/2025 11:12:09 01/25/20 25 01/25/2025 RENAL PANEL (10) albumin 3.8 g/dL 3.7-4. 7 normal Not Available [facility] ([facility]) [address] [place], [address], 01/25/2025 11:12:09 01/25/20 25 01/25/2025 IRON AND TIBC iron bind.cap.(TI BC) 321 ug/dL 250-45 0 normal Not Available [facility] ([facility]) [address] [place], [address], 01/25/2025 11:12:09 01/25/20 25 01/25/2025 IRON AND TIBC UIBC 276 ug/dL 111-34 3 normal Not Available [facility] ([facility]) [address] [place], [address], 01/25/2025 11:12:09 01/25/20 25 01/25/2025 IRON AND TIBC iron 45 ug/dL 38-169 normal Not Available [facility] ([facility]) [address] [place], [address], 01/25/2025 11:12:09 01/25/20 25 01/25/2025 IRON AND TIBC iron saturation 14 % 15-55 below low normal Not Available [facility] ([facility]) [address] [place], [address], 01/25/2025 11:12:09 01/25/20 25 01/25/2025 PROT+ CREAT U (RAND OM) creatinine, urine 69.3 mg/dL not estab. normal Not Available [facility] ([facility]) [address] [facility], [place], [address], 01/25/2025 11:12:10 01/25/20 25 01/25/2025 PROT+ CREAT U (RAND OM) protein,tota l,urine 219.4 mg/dL not estab. normal Resul ts confi rmed on dilut ion. Not Available [facility] ([facility]) [address] [facility], [place], [address], 01/25/2025 11:12:10 01/25/20 25 01/25/2025 PROT+ CREAT U (RAND OM) protein/crea t ratio 3166 mg/g_ creat 0-200 above high normal Not Available [facility] ([facility]) [address] [facility], [place], [address], 01/25/2025 11:12:10 01/25/20 25 01/25/2025 VITAM IN [...] Endoc rine Socie ty went on to [facility] er defin e vitam in D insuf ficie ncy as a level betwe en 21 and 29 ng/mL (2). 1. IOM (Inst itute of Medic ine). 2009. Dieta ry refer ence intak es for calci um and D. Elder aragon [place]: The [facility]io nal [facility] Press . 2. Zuly de la paz [place], Makayla deras [place], [place] off-F err[place] i COE, et al. Evalu ation , treat ment, and preve ntion of vitam in D defic iency : an Endoc rine Socie ty clini siobhan pract ice guide line. JCEM. 2010; 96(7) :1911 -30. Not Available [facility] ([facility]) [address] [place], [address], 01/25/2025 11:12:11 01/25/2001/25/2025 MIGDALIA TIN ferritin 40 NG/mL 30-400 normal Not Available [facility] ([facility]) [address] [place], [address], 01/25/2025 11:12:11 01/25/2001/25/2025 PTH, INTAC T PTH, intact 96 pg/mL 15-65 above high normal Not Available [facility] ([facility]) [address] [place], [address], 01/25/2025 11:12:12 03/04/20 25 03/05/2025 CBC WITH DIFFE RENTI AL/PL ATELE T WBC 7.2 x10e3 /uL 3.4-10 .8 normal Not Available [facility] ([facility]) [address] [place], [address], 03/05/2025 06:17:27 03/04/20 25 03/05/2025 CBC WITH DIFFE RENTI AL/PL ATELE T RBC 4.10 x10e6 /uL 4.14-5 .80 below low normal Not Available [facility] ([facility]) [address] [place], [address], 03/05/2025 06:17:27 03/04/2003/05/2025 CBC WITH DIFFE RENTI AL/PL ATELE T hemoglobin 12.3 g/dL 13.0-1 7.7 below low normal Not Available [facility] ([facility]) [address] [place], [address], 03/05/2025 06:17:27 03/04/20 25 03/05/2025 CBC WITH DIFFE RENTI AL/PL ATELE T hematocrit 38.0 % 37.5-5 1.0 normal Not Available [facility] ([facility]) [address] [place], [address], 03/05/2025 06:17:27 03/04/2003/05/2025 CBC WITH DIFFE RENTI AL/PL ATELE T MCV 93 fL 79-97 normal Not Available [facility] ([facility]) [address] [facility], [place], [address], 03/05/2025 06:17:27 03/04/2003/05/2025 CBC WITH DIFFE RENTI AL/PL ATELE T MCH 30.0 pg 26.6-3 3.0 normal Not Available [facility] ([facility]) [address] [place], [address], 03/05/2025 06:17:27 03/04/2003/05/2025 CBC WITH DIFFE RENTI AL/PL ATELE T MCHC 32.4 g/dL 31.5-3 5.7 normal Not Available [facility] ([facility]) [address] [facility], [place], [address], 03/05/2025 06:17:27 03/04/2003/05/2025 CBC WITH DIFFE RENTI AL/PL ATELE T RDW 12.4 % 11.6-1 5.4 Not Available [facility] ([facility]) [address] [facility], [place], [address], 03/05/2025 06:17:27 03/04/2003/05/2025 CBC WITH DIFFE RENTI AL/PL ATELE T platelets 233 x10e3 /uL 150-45 0 normal Not Available [facility] ([facility]) [address] [place], [address], 03/05/2025 06:17:27 03/04/2003/05/2025 CBC WITH DIFFE RENTI AL/PL ATELE T neutrophils 67 % not estab. normal Not Available [facility] ([facility]) [address] [place], [address], 03/05/2025 06:17:27 03/04/2003/05/2025 CBC WITH DIFFE RENTI AL/PL ATELE T lymphs 18 % not estab. normal Not Available [facility] ([facility]) [address] [facility], [place], [address], 03/05/2025 06:17:27 03/04/2003/05/2025 CBC WITH DIFFE RENTI AL/PL ATELE T monocytes 11 % not estab. normal Not Available [facility] ([facility]) [address] [facility], [place], [address], 03/05/2025 06:17:27 03/04/2003/05/2025 CBC WITH DIFFE RENTI AL/PL ATELE T eos 3 % not estab. normal Not Available [facility] ([facility]) [address] [place], [address], 03/05/2025 06:17:27 03/04/2003/05/2025 CBC WITH DIFFE RENTI AL/PL ATELE T basos 0 % not estab. normal Not Available [facility] ([facility]) [address] [place], [address], 03/05/2025 06:17:27 03/04/2003/05/2025 CBC WITH DIFFE RENTI AL/PL ATELE T immature cells MUNICIPAL SERVICES MANAGER Not Available [facility] ([facility]) [address] [place], [address], 03/05/2025 06:17:27 03/04/2003/05/2025 CBC WITH DIFFE RENTI AL/PL ATELE T neutrophils (absolute) 4.8 x10e3 /uL 1.4-7. 0 normal Not Available [facility] ([facility]) [address] [place], [address], 03/05/2025 06:17:27 03/04/20 25 03/05/2025 CBC WITH DIFFE RENTI AL/PL ATELE T lymphs (absolute) 1.3 x10e3 /uL 0.7-3. 1 normal Not Available [facility] ([facility]) [address] [facility], [place], [address], 03/05/2025 06:17:27 03/04/20 25 03/05/2025 CBC WITH DIFFE RENTI AL/PL ATELE T monocytes(ab solute) 0.8 x10e3 /uL 0.1-0. 9 normal Not Available [facility] ([facility]) [address] [facility], [place], [address], 03/05/2025 06:17:27 03/04/20 25 03/05/2025 CBC WITH DIFFE RENTI AL/PL ATELE T eos (absolute) 0.2 x10e3 /uL 0.0-0. 4 normal Not Available [facility] ([facility]) [address] [facility], [place], [address], 03/05/2025 06:17:27 03/04/20 25 03/05/2025 CBC WITH DIFFE RENTI AL/PL ATELE T baso (absolute) 0.0 x10e3 /uL 0.0-0. 2 normal Not Available [facility] ([facility]) [address] [place], [address], 03/05/2025 06:17:27 03/04/2003/05/2025 CBC WITH DIFFE RENTI AL/PL ATELE T immature granulocytes 1 % not estab. Not Available [facility] ([facility]) [address] [place], [address], 03/05/2025 06:17:27 03/04/20 25 03/05/2025 CBC WITH DIFFE RENTI AL/PL ATELE T immature grans (abs) 0.1 x10e3 /uL 0.0-0. 1 Not Available [facility] ([facility]) [address] [place], [address], 03/05/2025 06:17:27 03/04/20 25 03/05/2025 CBC WITH DIFFE RENTI AL/PL ATELE T NRBC MUNICIPAL SERVICES MANAGER Not Available [facility] ([facility]) [address] [facility], [place], [address], 03/05/2025 06:17:27 03/04/2003/05/2025 CBC WITH DIFFE RENTI AL/PL ATELE T hematology comments: MUNICIPAL SERVICES MANAGER Not Available [facility] ([facility]) [address] [facility], [place], [address], 03/05/2025 06:17:27 03/04/2003/05/2025 BASIC METAB OLIC PANEL (8) glucose 150 mg/dL 70-99 above high normal Not Available [facility] ([facility]) [address] [place], [address], 03/05/2025 06:17:27 03/04/2003/05/2025 BASIC METAB OLIC PANEL (8) BUN 42 mg/dL 8-27 above high normal Not Available [facility] ([facility]) [address] [place], [address], 03/05/2025 06:17:27 03/04/2003/05/2025 BASIC METAB OLIC PANEL (8) creatinine 3.49 mg/dL 0.76-1 .27 above high normal Not Available [facility] ([facility]) [address] [facility], [place], [address], 03/05/2025 06:17:27 03/04/2003/05/2025 BASIC METAB OLIC PANEL (8) eGFR 17 mL/mi n/1.7 3 >59 below low normal Not Available [facility] ([facility]) [address] [place], [address], 03/05/2025 06:17:27 03/04/2003/05/2025 BASIC METAB OLIC PANEL (8) BUN/creatini ne ratio 12 10-24 normal Not Available [facility] ([facility]) [address] [place], [address], 03/05/2025 06:17:27 03/04/2003/05/2025 BASIC METAB OLIC PANEL (8) sodium 136 mmol/ L 134-14 4 normal Not Available [facility] ([facility]) [address] [place], [address], 03/05/2025 06:17:27 03/04/2003/05/2025 BASIC METAB OLIC PANEL (8) potassium 4.7 mmol/ L 3.5-5. 2 normal Not Available [facility] ([facility]) [address] [place], [address], 03/05/2025 06:17:27 03/04/2003/05/2025 BASIC METAB OLIC PANEL (8) chloride 105 mmol/ L 96-106 normal Not Available [facility] ([facility]) [address] [place], [address], 03/05/2025 06:17:27 03/04/2003/05/2025 BASIC METAB OLIC PANEL (8) carbon dioxide, total 13 mmol/ L 20-29 below low normal Speci men quant ity insuf ficie nt for verif icati on by repea t luisito sis. Not Available [facility] ([facility]) [address] [place], [address], 03/05/2025 06:17:27 03/04/2003/05/2025 BASIC METAB OLIC PANEL (8) calcium 8.3 mg/dL 8.6-10 .2 below low normal Not Available [facility] ([facility]) [address] [place], [address], 03/05/2025 06:17:27 03/24/2003/25/2025 BMP7+ EGFR glucose 193 mg/dL 70-99 above high normal Not Available [facility] ([facility]) [address] [place], [address], 03/25/2025 11:14:10 03/24/2003/25/2025 BMP7+ EGFR BUN 27 mg/dL 8-27 normal Not Available [facility] ([facility]) [address] [place], [address], 03/25/2025 11:14:10 03/24/2003/25/2025 BMP7+ EGFR creatinine 2.75 mg/dL 0.76-1 .27 above high normal Not Available [facility] ([facility]) [address] [place], [address], 03/25/2025 11:14:10 03/24/2003/25/2025 BMP7+ EGFR eGFR 22 mL/mi n/1.7 3 >59 below low normal Not Available [facility] ([facility]) [address] [place], [address], 03/25/2025 11:14:10 03/24/2003/25/2025 BMP7+ EGFR sodium 142 mmol/ L 134-14 4 normal Not Available [facility] ([facility]) [address] [place], [address], 03/25/2025 11:14:10 03/24/2003/25/2025 BMP7+ EGFR potassium 4.8 mmol/ L 3.5-5. 2 normal Not Available [facility] ([facility]) [address] [place], [address], 03/25/2025 11:14:10 03/24/2003/25/2025 BMP7+ EGFR chloride 111 mmol/ L 96-106 above high normal Not Available [facility] ([facility]) [address] [place], [address], 03/25/2025 11:14:10 03/24/2003/25/2025 BMP7+ EGFR carbon dioxide, total 17 mmol/ L 20-29 below low normal Not Available [facility] ([facility]) [address] [facility], [place], [address], 03/25/2025 11:14:10 03/24/20 25 03/25/2025 CBC WITH DIFFE RENTI AL/PL ATELE T WBC 4.8 x10e3 /uL 3.4-10 .8 normal Not Available [facility] ([facility]) [address] [place], [address], 03/25/2025 11:14:11 03/24/2003/25/2025 CBC WITH DIFFE RENTI AL/PL ATELE T RBC 3.30 x10e6 /uL 4.14-5 .80 below low normal Not Available [facility] ([facility]) [address] [place], [address], 03/25/2025 11:14:11 03/24/2003/25/2025 CBC WITH DIFFE RENTI AL/PL ATELE T hemoglobin 9.8 g/dL 13.0-1 7.7 below low normal Not Available [facility] ([facility]) [address] [facility], [place], [address], 03/25/2025 11:14:11 03/24/2003/25/2025 CBC WITH DIFFE RENTI AL/PL ATELE T hematocrit 31.8 % 37.5-5 1.0 below low normal Not Available [facility] ([facility]) [address] [place], [address], 03/25/2025 11:14:11 03/24/2003/25/2025 CBC WITH DIFFE RENTI AL/PL ATELE T MCV 96 fL 79-97 normal Not Available [facility] ([facility]) [address] [place], [address], 03/25/2025 11:14:11 03/24/20 25 03/25/2025 CBC WITH DIFFE RENTI AL/PL ATELE T MCH 29.7 pg 26.6-3 3.0 normal Not Available [facility] ([facility]) [address] [facility], [place], [address], 03/25/2025 11:14:11 03/24/2003/25/2025 CBC WITH DIFFE RENTI AL/PL ATELE T MCHC 30.8 g/dL 31.5-3 5.7 below low normal Not Available [facility] ([facility]) [address] [facility], [place], [address], 03/25/2025 11:14:11 03/24/2003/25/2025 CBC WITH DIFFE RENTI AL/PL ATELE T RDW 13.1 % 11.6-1 5.4 Not Available [facility] ([facility]) [address] [facility], [place], [address], 03/25/2025 11:14:11 03/24/2003/25/2025 CBC WITH DIFFE RENTI AL/PL ATELE T platelets 199 x10e3 /uL 150-45 0 normal Not Available [facility] ([facility]) [address] [place], [address], 03/25/2025 11:14:11 03/24/2003/25/2025 CBC WITH DIFFE RENTI AL/PL ATELE T neutrophils 54 % not estab. normal Not Available [facility] ([facility]) [address] [place], [address], 03/25/2025 11:14:11 03/24/2003/25/2025 CBC WITH DIFFE RENTI AL/PL ATELE T lymphs 31 % not estab. normal Not Available [facility] ([facility]) [address] [place], [address], 03/25/2025 11:14:11 03/24/2003/25/2025 CBC WITH DIFFE RENTI AL/PL ATELE T monocytes 12 % not estab. normal Not Available [facility] ([facility]) [address] [facility], [place], [address], 03/25/2025 11:14:11 03/24/2003/25/2025 CBC WITH DIFFE RENTI AL/PL ATELE T eos 2 % not estab. normal Not Available [facility] ([facility]) [address] [facility], [place], [address], 03/25/2025 11:14:11 03/24/2003/25/2025 CBC WITH DIFFE RENTI AL/PL ATELE T basos 1 % not estab. normal Not Available [facility] ([facility]) [address] [facility], [place], [address], 03/25/2025 11:14:11 03/24/2003/25/2025 CBC WITH DIFFE RENTI AL/PL ATELE T immature cells MUNICIPAL SERVICES MANAGER Not Available [facility] ([facility]) [address] [place], [address], 03/25/2025 11:14:11 03/24/2003/25/2025 CBC WITH DIFFE RENTI AL/PL ATELE T neutrophils (absolute) 2.6 x10e3 /uL 1.4-7. 0 normal Not Available [facility] ([facility]) [address] [place], [address], 03/25/2025 11:14:11 03/24/2003/25/2025 CBC WITH DIFFE RENTI AL/PL ATELE T lymphs (absolute) 1.5 x10e3 /uL 0.7-3. 1 normal Not Available [facility] ([facility]) [address] [place], [address], 03/25/2025 11:14:11 03/24/202025 CBC WITH DIFFE RENTI AL/PL ATELE T monocytes(ab solute) 0.6 x10e3 /uL 0.1-0. 9 normal Not Available [facility] ([facility]) [address] [facility], [place], [address], 03/25/2025 11:14:11 03/24/2003/25/2025 CBC WITH DIFFE RENTI AL/PL ATELE T eos (absolute) 0.1 x10e3 /uL 0.0-0. 4 normal Not Available [facility] ([facility]) [address] [facility], [place], [address], 03/25/2025 11:14:11 03/24/2003/25/2025 CBC WITH DIFFE RENTI AL/PL ATELE T baso (absolute) 0.0 x10e3 /uL 0.0-0. 2 normal Not Available [facility] ([facility]) [address] [facility], [place], [address], 03/25/2025 11:14:11 03/24/2003/25/2025 CBC WITH DIFFE RENTI AL/PL ATELE T immature granulocytes 0 % not estab. Not Available [facility] ([facility]) [address] [facility], [place], [address], 03/25/2025 11:14:11 03/24/2003/25/2025 CBC WITH DIFFE RENTI AL/PL ATELE T immature grans (abs) 0.0 x10e3 /uL 0.0-0. 1 Not Available [facility] ([facility]) [address] [facility], [place], [address], 03/25/2025 11:14:11 03/24/2003/25/2025 CBC WITH DIFFE RENTI AL/PL ATELE T NRBC MUNICIPAL SERVICES MANAGER Not Available [facility] ([facility]) [address] [facility], [place], [address], 03/25/2025 11:14:11 03/24/2003/25/2025 CBC WITH DIFFE RENTI AL/PL ATELE T hematology comments: MUNICIPAL SERVICES MANAGER Not Available [facility] ([facility]) [address] [facility], [place], [address], 03/25/2025 11:14:11 03/24/20 25 03/25/2025 RENAL PANEL (10) BUN/creatini ne ratio 10 10-24 normal Not Available [facility] ([facility]) [address] [facility], [place], [address], 03/25/2025 11:14:12 03/24/2003/25/2025 RENAL PANEL (10) calcium 8.0 mg/dL 8.6-10 .2 below low normal Not Available [facility] ([facility]) [address] [facility], [place], [address], 03/25/2025 11:14:12 03/24/2003/25/2025 RENAL PANEL (10) phosphorus 3.5 mg/dL 2.8-4. 1 normal Not Available [facility] ([facility]) [address] [facility], [place], [address], 03/25/2025 11:14:12 03/24/20 25 03/25/2025 RENAL PANEL (10) albumin 2.7 g/dL 3.7-4. 7 below low normal Not Available [facility] ([facility]) [address] [facility], [place], [address], 03/25/2025 11:14:12 03/24/2003/25/2025 IRON AND TIBC iron bind.cap.(TI BC) 217 ug/dL 250-45 0 below low normal Not Available [facility] ([facility]) [address] [facility], [place], [address], 03/25/2025 11:14:13 03/24/20 25 03/25/2025 IRON AND TIBC UIBC 168 ug/dL 111-34 3 normal Not Available [facility] ([facility]) [address] [facility], [place], [address], 03/25/2025 11:14:13 03/24/2003/25/2025 IRON AND TIBC iron 49 ug/dL 38-169 normal Not Available [facility] ([facility]) [address] [facility], [place], [address], 03/25/2025 11:14:13 03/24/2003/25/2025 IRON AND TIBC iron saturation 23 % 15-55 normal Not Available [facility] ([facility]) [address] [facility], [place], [address], 03/25/2025 11:14:13 03/24/2003/25/2025 VITAM IN D, 25-HY [...] Elder aragon [place]: [facility] Press . 2. Zuly de la paz [place], Makayla deras [place], [place] off-F errar i COE, et al. Evalu ation , treat ment, and preve ntion of vitam in D defic iency : an Endoc rine Socie ty clini siobhan pract ice guide line. JCEM. 2010; 96(7) :1911 -30. Not Available [facility] ([facility]) [address] [facility], [place], [address], 03/25/2025 11:14:13 03/24/20 25 03/25/2025 MIGDALIA TIN ferritin 75 NG/mL 30-400 normal Not Available [facility] ([facility]) [address] [facility], [place], [address], 03/25/2025 11:14:14 03/24/20 25 03/25/2025 PTH, INTAC T PTH, intact 113 pg/mL 15-65 above high normal Not Available [facility] ([facility]) [address] [facility], [place], [address], 03/25/2025 11:14:15 04/06/20 25 04/06/2025 HbA1c (hemo globi n A1c), blood HbA1C 8.5 % Not Available [address] , [place], [address], 04/05/2025 16:20:51 04/06/20 25 04/06/2025 gluco se, finge rstic k, blood Blood Glucose: mg/dl 254 Not Available [address] , [place], [address], 04/05/2025 16:20:51 11/25/19 XR, chest , 2 view No observ ation record ed. [employer] [address] [place] [address] , [place], [address], 11/24/2024 16:35:31 12/24/19 25 12/22/2024 nucle ar stres s test No observ ation record ed. [facility] [address], [place], [address], 12/24/2024 10:49:01 12/26/19 25 12/22/2024 nucle ar stres s test No observ ation record ed. [facility] [address], [place], [address], 12/27/2024 11:02:47 12/29/19 25 12/22/2024 trans -thor acic echoc ardio gram (TTE) (PROC ) No observ ation record ed. [facility] [address], [place], [address], 12/29/2024 13:05:12 04/21/20 25 04/21/2025 imagi ng/di agnos tic resul t No observ ation record ed. [address], [place], [place], [address], 04/22/2025 15:27:06 04/28/20 25 04/28/2025 US, doppl er, venou s No observ ation record ed. [facility] [address], [place], [address], 04/29/2025 08:37:03 Result Notes None recorded. Problems Name Problem SNOMED Code Status Onset Date Resolution Date Notes Provider Name and Address Organization Details Recorded Time Essential hypertens ion 08023829 Active 2015 Not Available [facility] 3 11:37:22 Deep venous thrombosi s 451974651 Active 2015 Not Available [facility] 3 11:37:22 Type 2 diabetes mellitus 26529942 Completed 201505/23/2021 Marcelina Longo, COMPETITIVE SH[employer]PER [address], [place], [address] , [place] - [facility] 1 10:42:42 Hyperlipi demia 86127738 Active 2015 Not Available [facility] 3 11:37:22 Impotence Active 2015 Not Available [facility] 3 11:37:22 Long-term current use of anticoagu lant 282342606 Active 2015 Not Available [facility] 3 11:37:22 Obesity 406871771 Active 2015 Not Available [facility] 3 11:37:22 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 Active 2015 Not Available [facility] 3 11:37:22 Periphera l vascular disease 644152775 Active 2015 Not Available [facility] 3 11:37:22 Pulmonary embolism 78399629 Completed 201504/08/2016 Paula sheridan [place] - [facility] 6 13:01:47 Warfarin monitorin g status 321864136 Active 2016 Not Available [facility] 3 11:37:22 Vitamin D deficienc y 29134001 Active 2020 Not Available [facility] 3 11:37:22 Hyperglyc emia due to type 2 diabetes mellitus 74513121839 9109 Active 2020 Not Available [facility] 3 11:37:22 Chronic kidney disease stage 3 981115182 Active 2020 Not Available [facility] 3 11:37:22 Chronic ki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 73938673234 5 Active 2020 Not Available [facility] 3 11:37:22 Mixed hyperlipi demia 185448856 Active 2020 Not Available [facility] 3 11:37:22 History of deep vein thrombosi s 728160571 Active 2020 Not Available [facility] 3 11:37:22 History of pulmonary embolus 110923806 Active 2020 Not Available [facility] 3 11:37:22 Benign essential hypertens ion 3140447 Active 2020 Kat Carnes, COMPETITIVE SHOPPER [address], [place], [address] , [place] - [facility] 5 10:37:04 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 Procedures Surgical History Date Name Laterality Status Provider Name and Address Organization Details Recorded Time 03/24/20 Medication Reconcilliation completed Paula Hay [place] - [facility] 03/24/2025 13:08:38 12/30/19 A1C level 6.9 and below completed [employer] - [facility] 12/29/2024 10:00:50 09/22/19 A1C level 8.0 to 9.0 completed Clive [employer] - [facility] 09/21/2024 14:59:34 05/19/20 24 Advance Care Planning completed Paula Hay [place] [facility] 05/19/2024 12:54:25 05/19/20 24 Functional Status Assessed completed Paula Hay [place] - [facility] 05/19/2024 12:54:25 01/21/20 24 Positive Microalbumin completed [employer] - [facility] 01/21/2024 10:44:25 01/21/20 24 A1C level 6.9 and below completed Clive [employer] - [facility] 01/21/2024 10:48:27 10/22/19 24 A1C level 6.9 and below completed Clive [employer] - [facility] 10/22/2023 13:05:51 07/24/19 24 A1C level 8.0 to 9.0 completed Clive [employer] - [facility] 07/24/2023 11:56:27 04/08/20 23 A1C level 6.9 and below completed Clive [employer] - [facility] 04/08/2023 11:20:15 09/05/19 23 Medication Reconcilliation completed Paulapita MARIEE [facility] 09/04/2022 13:11:20 06/13/19 23 A1C level 7.0 to 7.9 completed Clive [employer] - [facility] 06/13/2022 11:10:06 03/06/20 22 A1C level 7.0 to 7.9 completed Clive Pineda [place] - [facility] 03/06/2022 13:11:24 12/04/19 22 A1C level 7.0 to 7.9 completed CliveLulu Sarminetoyles [place] - [facility] 12/03/2021 14:19:16 11/29/19 22 Cerumen Removal completed Giovanni Glass MD [address], [place], [address] [place] - [facility] 11/28/2021 10:57:35 08/30/19 [...] A1C level 7.0 to 7.9 completed Myah Lytle [place] - [facility] 11/02/2020 13:15:09 08/25/19 21 Diastolic B/P less than 80 mm Hg completed Paula Hay [place] - [facility] 08/24/2020 09:28:23 08/25/19 21 Systolic B/P 130-139 mm Hg completed Paula Hay [place] - [facility] 08/24/2020 09:28:20 08/01/19 21 Diastolic B/P less than 80 mm Hg completed Myah Lytle [place] - [facility] 08/01/2020 16:31:17 08/01/19 21 Systolic B/P 130-139 mm Hg completed Myah Lytle [place] - [facility] 08/01/2020 16:31:11 08/01/19 21 [...] less than 130 mm Hg completed Paula Gee [place] - [facility] 03/22/2020 10:51:22 03/22/20 20 [...] mm Hg completed Paula Hay [place] - [facility] 11/17/2019 13:40:34 10/08/19 20 Systolic B/P less than 130 mm Hg completed Paula Hay [place] - [facility] 10/08/2019 13:43:56 10/08/19 20 Diastolic B/P less than 80 mm Hg completed Paula Hay [place] - [facility] 10/08/2019 13:44:01 09/08/19 20 Systolic B/P less than 130 mm Hg completed Paula Hay [facility] 09/08/2019 12:57:34 09/08/19 20 Diastolic B/P less than 80 mm Hg completed Paula Hay [facility] 09/08/2019 12:57:39 08/11/19 20 Systolic B/P less than 130 mm Hg completed Paula Hay [facility] 08/11/2019 13:09:51 08/11/19 20 Diastolic B/P 80-89 mm Hg completed Paula Hay [facility] 08/11/2019 13:09:55 06/10/19 20 Systolic B/P less than 130 mm Hg completed Paula Hay [facility] 06/10/2019 12:57:49 06/10/19 20 Diastolic B/P 80-89 mm Hg completed Paula Hay [facility] 06/10/2019 12:57:53 10/25/19 18 Advance Care Planning completed Corine Welch RN [address], [place], [address], [facility] - [facility] 10/24/2017 08:56:49 Cataract Surgery completed Corine Welch RN [address], [place], [address], [facility] - [facility] 10/24/2017 09:14:03 Imaging Results None [...] Disconti nued on: 01/11/20 11 3:55PM;U ser: Harrison Wilks on: 04/09/20 11 Not Available Not Available Not Available Keflex 500 mg capsule take 1 capsule (500 mg) by oral route every 12 hours for 10 days 05/12 completed Keflex 500 mg oral capsule; Recorded Status: Recorded on: 04/18/20 08 11:01AM; Disconti nued Status: Disconti nued on: 05/12/20 08 3:46PM;U ser: Tima tSam Wilks on: 04/28/20 08;Print ed: 04/18/20 08 [...] Disconti nued on: 02/14/20 16 9:04AM;U ser: haygonzalo;Est . Completi on: 03/14/20 14 Not Available [...] ser: earlywin ec;Est. Completi on: 07/06/19 15;Pharm Paulette ied: 01/08/20 14 4:26PM Not Available Not [...] Available Not Available Nasonex 50 mcg/actua tion Graham 1 sniff bilat bid 09/15 completed Nasonex 50 mcg/actu ation nasal spray,no n-aeroso l;Prescr yvonne Status: Prescrib ed on: 09/16/19 14 11:17AM; Disconti nued Status: Disconti nued on: 09/16/19 14 3:25PM;U ser: grossert ;Est. Completi on: 03/14/20 14;Indic ation: Atopic Rhinitis - (08.4779 03);Phar premSegundo fied: 09/16/19 14 11:17AM Not Available Not [...] : Superfic ial Ocular Infectio n - (06.4333 00);Prin hola: 07/10/19 10 Not Available Not [...] nued on: 01/10/20 11 9:10AM;U ser: grossert ;EstSam Completi on: 06/24/19 12;Print ed: 12/27/19 11 Not Available Not Available Not Available Avodart 0.5 mg capsule take 1 capsule (0.5 mg) by oral route once daily for 30 days 04/18 completed Avodart 0.5 mg oral capsule; Recorded Status: Recorded on: 04/18/20 08 10:59AM; Disconti nued Status: Disconti nued on: 04/18/20 08 11:05AM; User: Tima lam Completjair on: 07/17/19 09;Indic ation: Symptoma tic Prostati [...] er's instruct ions. Insulin dosing requires individu sierrafilemono n. 04/22 completed Levemir 100 unit/mL subcutan [...] Not Available Not Available Easy Comfort Pen [place] 32 gauge x 5/32 USE DIRECTED DAILY [...] Updated DateTime 5 182.88 cm 25.8 kg/m2 45567.5 5 g 98.5 [degF] 100 /min 97 % 18 /min 0 110/60 mm[Hg] Paula Gee [place] - [facility] 5 13:09:19 Date Recorded Body height Body mass index (BMI) Body weight Body temperature Heart rate Oxygen saturation Respiratory rate Pain severity - 0-10 verbal numeric rating [Score] - Reported Systolic And Diastolic Provider Name and Address Organization Details Last Updated DateTime 5 182.88 cm 26.2 kg/m2 18303.7 3 g 98.3 [degF] 75 /min 96 % 18 /min 0 138/78 mm[Hg] Clive Sung [place] - [facility] 5 09:57:27 Date Recorded Body height Body mass index (BMI) Body weight Body temperature Heart rate Oxygen saturation Respiratory rate Pain severity - 0-10 verbal numeric rating [Score] - Reported Systolic And Diastolic Provider Name and Address Organization Details Last Updated DateTime 5 182.88 cm 26.2 kg/m2 83188.3 3 g 97.9 [degF] 72 /min 97 % 18 /min 0 130/82 mm[Hg] Paula Gee [place] - [facility] 5 10:45:56 Date Recorded Body height Body mass index (BMI) Body weight Body temperature Heart rate Oxygen saturation Respiratory rate Pain severity - 0-10 verbal numeric rating [Score] - Reported Systolic And Diastolic Provider Name and Address Organization Details Last Updated DateTime 5 182.88 cm 26.6 kg/m2 14202.1 g 98.7 [degF] 70 /min 97 % 20 /min 0 100/70 mm[Hg] Paula Gee [facility] 5 13:12:31 Date Recorded Body height Body mass index (BMI) Body weight Body temperature Heart rate Oxygen saturation Respiratory rate Pain severity - 0-10 verbal numeric rating [Score] - Reported Systolic And Diastolic Provider Name and Address Organization Details Last Updated DateTime 5 182.88 cm 26.6 kg/m2 15349.1 g 97.7 [degF] 72 /min 96 % 18 /min 0 122/70 mm[Hg] Clive Sung [facility] 5 09:50:24 Social History Question Answer Notes LastModified by Organization Details LastModified Time Tobacco Smoking Status Former Smoker Paula Gee [facility] 04/08/2016 13:03:41 Able To Swim? Yes [...] Or The Highest Degree You Have Received? [id number] Information not available 01/18/2021 Swimming/diving No Informati [...] anxious, or unable to sleep at night)? [id number] Information not available 01/18/2021 Do you have [...] Stones N Blood Diseases N Hyperthyroidism N Rheumatoid arthritis N Blood Transfusion N Erectile Dysfunction Y amputation N Skin Lesions N Depression N COPD N Pneumonia N Incontinence N Murmur N Edema N Alzheimer's Disease N Migraine Headaches N Tobacco Abuse N Anxiety Disorder N Muscle, Joint, or Bone Problems N Hemorrhoids N Obesity Y Vision or Eye Problems N Restless Leg Syndrome N Arthritis N Polyps N Infertility N Mental Disorder N Carpal Tunnel N Acid Reflux (GERD) N Cancer N Varicosities N Stroke N Tendonitis N Crohn's Disease N Hypercholesterolemia N Skin Cancer N Headaches N Fibromyalgia N Irritable Bowel Syndrome N Anal Fissure N Kidney Disease N Heart Problems N [...] Than N Lung Disease N Hypothyroidism N Developmental or Behavioral Disorders N Defects or Inherited Disease N Breast Problem N Difficulty Swallowing N Ovarian Cyst N Anesthesia Complications N Testosterone Deficiency N Meniere's disease N Head Injury/Concussion N Interstitial Cystitis N Congenital Anomalies N Hypoglycemia N Blood clot N Vitamin D Deficiency N Cellulitis N Endometriosis N Fracture N Bladder or Kidney Problems N Liver Disease N Schizophrenia N Panic Disorder N Concussion N Spina Bifida N Allergies/Hayfever N Osteoarthritis N Parkinson's Disease N Disc Protrusion N STI N Esophagitis N Angina N Thyroid Problems N GI Problems N ADD/ADHD N Anemia N Multiple Sclerosis N Abnormal PAP N Lumbago N Mental Illness N Psychiatric Illness N Ovarian Cancer N Diabetes Y Bedwetting N Degenerative Disc Disease N Seizures/Epilepsy N Congestive Heart Failure (CHF) N Syncope N Insomnia N Hyperlipidemia Y Eczema N Diverticulitis N Dementia N Attention Deficient Disorder N Abuse/Domestic Violence N Ulcerative colitis N Cerebrovascular Disease N Depression N Guillain-Persia N Sleep Apnea N Aneurysm N Heart Disease N Bronchitis N Suicidal Ideation N Pre-Eclampsia N Hypertension [...] completed Shahnaz Herman APRN [address], [place], [address], [place] - [facility] 03/14/2020 16:08:39 Influenza, high-dose, quadrivalent, PF 1 completed Giovanni Glass MD [address], [place], [address], [place] - [facility] 03/21/2021 14:31:50 influenza, unspecified formulation 0 completed Not Available [facility] 02/01/2023 11:37:23 influenza, unspecified formulation 1 completed Not Available [facility] 02/01/2023 11:37:23 influenza, unspecified formulation 2 completed Radha Whittaker null, [place] - [facility] 05/26/2024 10:16:32 influenza, unspecified formulation 3 completed Not Available [facility] 02/01/2023 11:37:23 influenza, unspecified formulation 4 completed Not Available [facility] 02/01/2023 11:37:23 influenza, unspecified formulation 5 completed Not Available [facility] 02/01/2023 11:37:23 influenza, unspecified formulation 8 completed Not Available [facility] 02/01/2023 11:37:23 influenza, unspecified formulation 9 completed Not Available [facility] 02/01/2023 11:37:23 Influenza, split virus, quadrivalent, preservative 7 completed Not Available [facility] 06/26/2019 03:54:42 COVID-19, mRNA, LNP-S, PF, 100 mcg/0.5mL dose or 50 mcg/0.25mL dose 2 completed Giovanni Glass MD [address], [place], [address], [place] [facility] 06/21/2021 11:12:07 Influenza, high-dose, quadrivalent, PF 2 completed Marcelina Longo APRN [address], [place], [address], [place] [facility] 03/06/2022 13:31:11 Influenza, high-dose, quadrivalent, PF 3 completed Paula [place], [place] - [facility] 03/13/2023 09:48:17 Influenza, split virus, quadrivalent, preservative 6 completed Not Available [facility] 02/01/2023 11:37:23 zoster live 9 completed Not Available [facility] 02/01/2023 11:37:23 Influenza, high-dose, trivalent, PF 4 completed Debra Barajas MD [address], [place], [address], [place] [facility] 03/09/2024 15:47:29 Tdap 4 completed Paula [place], [place] - [facility] 05/19/2024 16:57:05 Pneumococcal conjugate PCV20, polysaccharide [id number] conjugate, adjuvant, PF 4 completed Paula [place], [place] - [facility] 05/19/2024 16:57:56 Influenza, high-dose, trivalent, PF 5 completed Giovanni Glass MD [address], [place], [address], [place] [facility] 03/24/2025 13:57:50 Influenza, high-dose, trivalent, PF 8 completed Not Available [facility] 06/26/2019 03:55:10 SARS-COV-2 (COVID-19) vaccine, UNSPECIFIED 1 completed [place] - [facility] 05/26/2024 10:16:32 SARS-COV-2 (COVID-19) vaccine, UNSPECIFIED 1 completed [place] - [facility] 05/26/2024 10:16:32 Influenza, high-dose, trivalent, PF 9 completed Not Available [facility] 06/26/2019 03:56:04 Past Encounters Encounter ID Performer Location Encounter Start Date Encounter Closed Date Diagnosis/Indication Diagnosis SNOMED-CT Code Diagnosis ICD10 Code Diagnosis IMO Codes Diagnosis Note [id number] [facility] [address] [place] [address] 02/23/2014 00:00:00 [id number] [facility] [address] [place] [address] 03/03/2014 00:00:00 [id number] [facility] [address] [place] [address] 04/22/2014 00:00:00 [id number] [facility] [address] [place] [address] 05/25/2014 00:00:00 [id number] [facility] [address] [place] [address] 06/29/2014 00:00:00 [id number] [facility] [address] [place] [address] 07/13/2014 00:00:00 [id number] [facility] [address] [place] [address] 08/05/2014 00:00:00 [id number] [facility] [address] [place] [address] 09/02/2014 00:00:00 [id number] [facility] [address] [place] [address] 5 09/30/2014 00:00:00 [id number] [facility] [address] [place] [address] 5 05/24/2015 00:00:00 [id number] [facility] [address] [place] [address] 10/28/2014 00:00:00 [id number] [facility] [address] [place] [address] 06/21/2015 00:00:00 [id number] [facility] [address] [place] [address] 07/26/2015 00:00:00 [id number] [facility] [address] [place] [address] 11/25/2014 00:00:00 [id number] [facility] [address] [place] [address] 12/23/2014 00:00:00 [id number] [facility] [address] [place] [address] 02/03/2014 00:00:00 [id number] [facility] [address] [place] [address] 5 01/25/2015 00:00:00 [id number] [facility] [address] [place] [address] 02/23/2015 00:00:00 [id number] [facility] [address] [place] [address] 5 02/23/2015 00:00:00 [id number] [facility] [address] [place] [address] 5 03/23/2015 00:00:00 [id number] [facility] [address] [place] [address] 5 04/20/2015 00:00:00 [id number] [facility] [address] [place] [address] 5 06/29/2014 00:00:00 [id number] [facility] [address] [place] [address] 5 05/24/2015 00:00:00 [id number] [facility] [address] [place] [address] 10/28/2014 00:00:00 [id number] [facility] [address] [place] [address] 11/25/2014 00:00:00 [id number] [facility] [address] [place] [address] 5 11/01/2015 00:00:00 [id number] [facility] [address] [place] [address] 5 11/22/2015 00:00:00 [id number] [facility] [address] [place] [address] 5 07/26/2015 00:00:00 [id number] [facility] [address] [place] [address] 12/20/2015 00:00:00 [id number] [facility] [address] [place] [address] 5 08/23/2015 00:00:00 [id number] [facility] [address] [place] [address] 5 09/20/2015 00:00:00 [id number] [facility] [address] [place] [address] 5 01/17/2016 00:00:00 [id number] [facility] [address] [place] [address] 5 10/18/2015 00:00:00 [id number] [facility] [address] [place] [address] 5 02/14/2016 00:00:00 [id number] [facility] [address] [place] [address] 5 11/01/2015 00:00:00 [id number] [facility] [address] [place] [address] 5 04/24/2010 00:00:00 [id number] [facility] [address] [place] [address] 5 06/04/2010 00:00:00 [id number] [facility] [address] [place] [address] 5 06/11/2010 00:00:00 [id number] [facility] [address] [place] [address] 5 06/21/2010 00:00:00 [id number] [facility] [address] [place] [address] 08/03/2010 00:00:00 [id number] [facility] [address] [place] [address] 5 08/22/2010 00:00:00 [id number] [facility] [address] [place] [address] 5 12/26/2010 00:00:00 [id number] [facility] [address] [place] [address] 5 01/11/2011 00:00:00 [id number] [facility] [address] [place] [address] 5 01/16/2011 00:00:00 [id number] [facility] [address] [place] [address] 5 01/16/2011 00:00:00 [id number] [facility] [address] [place] [address] 5 05/24/2011 00:00:00 [id number] [facility] [address] [place] [address] 5 07/03/2011 00:00:00 [id number] [facility] [address] [place] [address] 5 07/24/2011 00:00:00 [id number] [facility] [address] [place] [address] 5 09/06/2011 00:00:00 [id number] [facility] [address] [place] [address] 5 10/16/2011 00:00:00 [id number] [facility] [address] [place] [address] 5 11/13/2011 00:00:00 [id number] [facility] [address] [place] [address] 5 11/21/2011 00:00:00 [id number] [facility] [address] [place] [address] 5 12/06/2011 00:00:00 [id number] [facility] [address] [place] [address] 5 01/03/2012 00:00:00 [id number] [facility] [address] [place] [address] 5 03/12/2012 00:00:00 [id number] [facility] [address] [place] [address] 5 01/03/2012 00:00:00 [id number] [facility] [address] [place] [address] 5 04/22/2012 00:00:00 [id number] [facility] [address] [place] [address] 5 02/12/2012 00:00:00 [id number] [facility] [address] [place] [address] 5 05/08/2012 00:00:00 [id number] [facility] [address] [place] [address] 5 05/20/2012 00:00:00 [id number] [facility] [address] [place] [address] 5 12/08/2013 00:00:00 [id number] [facility] [address] [place] [address] 5 10/22/2012 00:00:00 [id number] [facility] [address] [place] [address] 5 03/17/2013 00:00:00 [id number] [facility] [address] [place] [address] 5 03/19/2013 00:00:00 [id number] [facility] [address] [place] [address] 5 03/26/2013 00:00:00 [id number] [facility] [address] [place] [address] 5 04/02/2013 00:00:00 [id number] [facility] [address] [place] [address] 5 04/09/2013 00:00:00 [id number] [facility] [address] [place] [address] 5 04/09/2013 00:00:00 [id number] [facility] [address] [place] [address] 5 04/23/2013 00:00:00 [id number] [facility] [address] [place] [address] 5 05/28/2012 00:00:00 [id number] [facility] [address] [place] [address] 5 05/26/2013 00:00:00 [id number] [facility] [address] [place] [address] 5 06/04/2012 00:00:00 [id number] [facility] [address] [place] [address] 5 06/30/2013 00:00:00 [id number] [facility] [address] [place] [address] 5 09/30/2012 00:00:00 [id number] [facility] [address] [place] [address] 5 10/22/2012 00:00:00 [id number] [facility] [address] [place] [address] 5 06/30/2013 00:00:00 [id number] [facility] [address] [place] [address] 5 07/28/2013 00:00:00 [id number] [facility] [address] [place] [address] 5 12/08/2013 00:00:00 [id number] [facility] [address] [place] [address] 5 08/25/2013 00:00:00 [id number] [facility] [address] [place] [address] 5 09/15/2013 00:00:00 [id number] [facility] [address] [place] [address] 5 10/07/2013 00:00:00 [id number] [facility] [address] [place] [address] 5 11/04/2013 00:00:00 [id number] [facility] [address] [place] [address] 5 12/08/2013 00:00:00 [id number] Giovanni Glass MD [address] [place] [address] 04/10/2016 08:48:54 04/10/2016 10:08:55 Deep venous thrombosis 034633365 I82.003 [id number] Giovanni Glass MD [address] [place] [address] 05/10/2016 09:28:10 05/10/2016 10:05:41 Deep venous thrombosis 211517410 I82.409 Body mass index 30+ - obesity 088627598 Z68.30 [id number] Giovanni Glass MD [address] [place] [address] 7 06/14/2016 10:01:53 06/14/2016 10:38:00 Deep venous thrombosis 452218007 I82.409 Long-term current use of anticoagulant 339462692 Z79.01 Warfarin m onitoring status 607762676 Z51.81 Body mass index 30+ - obesity 088418454 Z68.30 [id number] Giovanni Glass MD [address] [place] [address] 07/12/2016 09:44:38 07/12/2016 10:27:11 Deep venous thrombosis 569302114 I82.409 Long-term current use of anticoagulant 110238946 Z79.01 Warfarin m onitoring status 567387848 Z51.81 Body mass index 30+ - obesity 175692301 Z68.30 [id number] Giovanni Glass MD [address] [place] [address] 08/09/2016 09:58:16 08/09/2016 10:50:16 Deep venous thrombosis 155146853 I82.409 Warfarin m onitoring status 288849237 Z51.81 Long-term current use of anticoagulant 683794908 Z79.01 Body mass index 30+ - obesity 097535502 Z68.30 [id number] Giovanni Glass MD [address] [place] [address] 7 09/06/2016 09:04:29 09/06/2016 10:28:19 Deep venous thrombosis 215024038 I82.409 Warfarin m onitoring status 922608853 Z51.81 Long-term current use of anticoagulant 741242261 Z79.01 Body mass index 30+ - obesity 055888172 Z68.30 [id number] Giovanni Glass MD [address] [place] [address] 10/09/2016 12:24:41 10/09/2016 13:13:21 Deep venous thrombosis 752196721 I82.409 Warfarin m onitoring status 194541658 Z51.81 Long-term current use of anticoagulant 090822470 Z79.01 Body mass index 30+ - obesity 460253679 Z68.30 [id number] Giovanni Glass MD [address] [place] [address] 11/07/2016 13:32:27 11/07/2016 14:11:28 Deep venous thrombosis 355270511 I82.409 Warfarin m onitoring status 386855031 Z51.81 Long-term current use of anticoagulant 503918612 Z79.01 Body mass index 30+ - obesity 217830571 Z68.30 [id number] Giovanni Glass MD [address] [place] [address] 11/28/2016 12:29:41 11/28/2016 13:39:31 Deep venous thrombosis 476646753 I82.409 Peripheral vascular disease 029423790 I73.9 Type 2 joaquin betes mellitus 58146871 E11.9 Hyperlipidemia 39497242 E78.5 Essential hypertension 42773804 I10 Acute urin lupillo tract infection 047124152 N39.0 [id number] Giovanni Glass MD [address] [place] [address] 12/12/2016 08:17:34 12/12/2016 08:55:13 Anticoagulant therapy 363340630 Z79.01 Warfarin m onitoring status 841027841 Z51.81 Long-term drug therapy 016162377 Z79.899 Deep venou s thrombosis 582598471 I82.409 Body mass index 30+ - obesity 379762550 Z68.30 [id number] Giovanni Glass MD [address] [place] [address] 01/10/2017 08:54:13 01/10/2017 09:21:30 Deep venous thrombosis 946167301 I82.409 Warfarin m onitoring status 734482414 Z51.81 Long-term current use of anticoagulant 812503648 Z79.01 Body mass index 30+ - obesity 387966087 Z68.30 [id number] Giovanni Glass MD [address] [place] [address] 02/07/2017 10:36:25 02/07/2017 11:24:57 Deep venous thrombosis 688265767 I82.409 Warfarin m onitoring status 950238293 Z51.81 Long-term current use of anticoagulant 609731323 Z79.01 Body mass index 30+ - obesity 332887707 Z68.30 [id number] Giovanni Glass MD [address] [place] [address] 03/07/2017 10:25:38 03/07/2017 10:49:50 Deep venous thrombosis 759273811 I82.409 Long-term current use of anticoagulant 060936774 Z79.01 Warfarin m onitoring status 951505667 Z51.81 Body mass index 30+ - obesity 224956808 Z68.30 [id number] Valeria Villafana MD [address] [place] [address] 03/27/2017 10:49:48 03/27/2017 11:13:59 Administration of influenza vaccine 81978371 Z23 [id number] Giovanni Glass MD [address] [place] [address] 04/04/2017 10:08:32 04/04/2017 10:58:58 Deep venous thrombosis 482665473 I82.409 Warfarin m onitoring status 069370593 Z51.81 Long-term current use of anticoagulant 562756968 Z79.01 Allergic rhinitis 828939 04 J30.9 Body mass index 30+ - obesity 385130503 Z68.30 [id number] Giovanni Glass MD [address] [place] [address] 04/30/2017 10:30:16 04/30/2017 11:28:41 Deep venous thrombosis 755816212 I82.409 Body mass index 30+ - obesity 700144981 Z68.30 Warfarin m onitoring status 391042283 Z51.81 Long-term current use of anticoagulant 357836779 Z79.01 [id number] Giovanni Glass MD [address] [place] [address] 05/29/2017 13:30:45 05/29/2017 13:54:39 Deep venous thrombosis 039485129 I82.409 Acute bronchitis 1308307 2 J20.9 Warfarin m onitoring status 089349484 Z51.81 Long-term current use of anticoagulant 918944126 Z79.01 Body mass index 30+ - obesity 830851427 Z68.30 [id number] Giovanni Glass MD [address] [place] [address] 06/26/2017 10:29:54 06/26/2017 11:22:41 Deep venous thrombosis 342719047 I82.409 Acute bronchitis 4120236 2 J20.9 Warfarin m onitoring status 457764982 Z51.81 Long-term current use of anticoagulant 694932233 Z79.01 Body mass index 30+ - obesity 046722227 Z68.30 [id number] Giovanni Glass MD [address] [place] [address] 07/02/2017 08:44:52 07/02/2017 11:03:42 Hyperlipidemia 18180125 E78.5 Essential hypertension 86439329 I10 Deep venou s thrombosis 106955878 I82.409 Acute bronchitis 1212430 2 J20.9 Warfarin m onitoring status 394742292 Z51.81 Long-term current use of anticoagulant 585393497 Z79.01 Body mass index 30+ - obesity 133780836 Z68.30 Varicose v eins of lower extremity with inflammation 90328791 I83.12 resolving [id number] Giovanni Glass MD [address] [place] [address] 07/24/2017 09:20:59 07/24/2017 10:19:32 Deep venous thrombosis 502318481 I82.409 Warfarin m onitoring status 744146743 Z51.81 Long-term current use of anticoagulant 761729486 Z79.01 Body mass index 30+ - obesity 712368581 Z68.30 [id number] Giovanni Glass MD [address] [place] [address] 08/27/2017 15:21:36 08/27/2017 15:47:42 Warfarin monitoring status 773816190 Z51.81 Deep venou s thrombosis 793462965 I82.409 Long-term current use of anticoagulant 260488841 Z79.01 Body mass index 30+ - obesity 389188544 Z68.31 [id number] Giovanni Glass MD [address] [place] [address] 09/26/2017 09:25:52 09/26/2017 11:16:03 Deep venous thrombosis 402545723 I82.409 Warfarin m onitoring status 645610193 Z51.81 Long-term current use of anticoagulant 424750980 Z79.01 Body mass index 30+ - obesity 948555951 Z68.30 [id number] Giovanni Glass MD [address] [place] [address] 10/24/2017 08:42:13 10/24/2017 09:57:47 Adult health examination 670596210 Z00.00 Depression screening 171 152796 Z13.89 Examinatio n of blood pressure 206096597 Z01.31 Diet education 91106229 Z71.3 Body mass index 30+ - obesity 162744929 Z68.30 Deep venou s thrombosis 382742088 I82.409 Long-term current use of anticoagulant 271830391 Z79.01 Warfarin m onitoring status 853581446 Z51.81 Peripheral vascular disease 006508990 I73.9 Hyperlipidemia 72566413 E78.5 [id number] Thierno Fischer MD [address] [place] [address] 11/13/2017 08:46:11 11/13/2017 09:56:28 Dysuria 09195287 R30.0 Urinary tr act infectious disease 37459420 N39.0 [id number] Giovanni Glass MD [address] [place] [address] 11/21/2017 08:52:55 11/21/2017 09:41:02 Deep venous thrombosis 386820328 I82.409 Warfarin m onitoring status 741642790 Z51.81 Long-term current use of anticoagulant 956882519 Z79.01 Body mass index 30+ - obesity 872168216 Z68.30 [id number] Giovanni Glass MD [address] [place] [address] 12/19/2017 10:06:09 12/19/2017 10:45:38 Deep venous thrombosis 418531394 I82.409 Warfarin m onitoring status 663882811 Z51.81 Long-term current use of anticoagulant 425891993 Z79.01 Body mass index 30+ - obesity 274805044 Z68.31 [id number] Giovanni Glass MD [address] [place] [address] 01/16/2018 10:06:05 01/16/2018 10:38:21 Deep venous thrombosis 662444424 I82.409 Warfarin m onitoring status 845222404 Z51.81 Long-term current use of anticoagulant 420281647 Z79.01 Body mass index 30+ - obesity 190871763 Z68.31 [id number] Giovanni Glass MD [address] [place] [address] 01/28/2018 08:53:17 01/28/2018 11:09:10 Acute otitis externa 53666474 H60.501 Hyperlipidemia 70510282 E78.5 Body mass index 30+ - obesity 850867536 Z68.31 [id number] Giovanni Glass MD [address] [place] [address] 02/11/2018 10:17:49 02/11/2018 10:48:37 Deep venous thrombosis 598816507 I82.409 Warfarin m onitoring status 136316683 Z51.81 Body mass index 30+ - obesity 682869453 Z68.31 Long-term current use of anticoagulant 390205134 Z79.01 [id number] Giovanni Glass MD [address] [place] [address] 03/11/2018 09:44:15 03/11/2018 11:23:13 Warfarin monitoring status 807748810 Z51.81 Long-term drug therapy 185159382 Z79.899 Anticoagulant therapy 18 2695621 Z79.01 Administra tion of influenza vaccine 84176741 Z23 Deep venou s thrombosis 709264485 I82.598 [id number] Giovanni Glass MD [address] [place] [address] 04/08/2018 09:38:25 04/08/2018 10:55:32 Deep venous thrombosis 974176057 I82.409 Body mass index 30+ - obesity 832787254 Z68.31 Warfarin m onitoring status 673316350 Z51.81 Long-term current use of anticoagulant 788482456 Z79.01 [id number] Giovanni Glass MD [address] [place] [address] 04/22/2018 12:51:26 04/22/2018 14:05:20 Seborrheic dermatitis 04346891 L21.9 Body mass index 30+ - obesity 508243230 Z68.31 [id number] Giovanni Glass MD [address] [place] [address] 05/08/2018 09:48:47 05/08/2018 10:27:46 Deep venous thrombosis 202201042 I82.409 Warfarin m onitoring status 584986067 Z51.81 Long-term current use of anticoagulant 878772872 Z79.01 Body mass index 30+ - obesity 569497306 Z68.32 [id number] Giovanni Glass MD [address] [place] [address] 06/11/2018 08:31:28 06/11/2018 09:41:07 Deep venous thrombosis 569628481 I82.409 Warfarin m onitoring status 488686242 Z51.81 Long-term current use of anticoagulant 250111784 Z79.01 Allergic rhinitis 348849 04 J30.9 Body mass index 30+ - obesity 323771270 Z68.32 [id number] Giovanni Glass MD [address] [place] [address] 07/10/2018 08:41:58 07/10/2018 09:25:59 Deep venous thrombosis 904069477 I82.409 Warfarin m onitoring status 889138519 Z51.81 Long-term current use of anticoagulant 452021715 Z79.01 Body mass index 30+ - obesity 359236075 Z68.31 [id number] Giovanni Glass MD [address] [place] [address] 08/07/2018 08:07:24 08/07/2018 09:12:34 Deep venous thrombosis 202532955 I82.409 Warfarin m onitoring status 214835617 Z51.81 Long-term current use of anticoagulant 587516620 Z79.01 Body mass index 30+ - obesity 981724089 Z68.31 [id number] Giovanni Glass MD [address] [place] [address] 08/19/2018 09:38:58 08/19/2018 10:08:29 Deep venous thrombosis 823332337 I82.409 Warfarin m onitoring status 842570107 Z51.81 Long-term current use of anticoagulant 577565044 Z79.01 Body mass index 30+ - obesity 647257012 Z68.31 [id number] Giovanni Glass MD [address] [place] [address] 09/18/2018 09:23:10 09/18/2018 10:27:23 Deep venous thrombosis 944262596 I82.409 Warfarin m onitoring status 189530221 Z51.81 Long-term current use of anticoagulant 234277320 Z79.01 Body mass index 30+ - obesity 027855410 Z68.30 [id number] Giovanni Glass MD [address] [place] [address] 10/16/2018 10:50:26 10/16/2018 11:15:43 Deep venous thrombosis 762472641 I82.409 Warfarin m onitoring status 779335865 Z51.81 Long-term current use of anticoagulant 660280588 Z79.01 Body mass index 25-29 - overweight 602371622 Z68.29 [id number] Giovanni Glass MD [address] [place] [address] 11/19/2018 09:34:30 11/19/2018 10:05:05 Long-term drug therapy 899681746 Z79.899 Anticoagulant therapy 18 2743771 Z79.01 Deep venou s thrombosis 692169566 I82.409 Long-term current use of anticoagulant 109576253 Z79.01 Warfarin m onitoring status 728018147 Z51.81 Acute bronchitis 6341700 2 J20.9 Body mass index 25-29 - overweight 733790415 Z68.29 [id number] Giovanni Glass MD [address] [place] [address] 12/17/2018 09:58:33 12/17/2018 10:39:51 Deep venous thrombosis 377412953 I82.409 Warfarin m onitoring status 710626417 Z51.81 Long-term current use of anticoagulant 522367284 Z79.01 Body mass index 25-29 - overweight 584265742 Z68.29 [id number] Giovanni Glass MD [address] [place] [address] 01/14/2019 10:07:47 01/14/2019 10:32:03 Deep venous thrombosis 798360318 I82.409 Obesity 397153269 E66.9 Warfarin m onitoring status 682756858 Z51.81 Long-term current use of anticoagulant 672061794 Z79.01 Body mass index 25-29 - overweight 749599083 Z68.29 [id number] Giovanni Glass MD [address] [place] [address] 02/05/2019 09:00:04 02/05/2019 09:49:44 Acute gastroenteritis 26443629 K52.9 Body mass index 25-29 - overweight 213860003 Z68.28 [id number] Giovanni Glass MD [address] [place] [address] 02/11/2019 09:25:32 02/11/2019 09:57:08 Deep venous thrombosis 012603533 I82.409 Long-term current use of anticoagulant 820803855 Z79.01 Warfarin m onitoring status 547471161 Z51.81 Body mass index 25-29 - overweight 276463550 Z68.29 [id number] Giovanni Glass MD [address] [place] [address] 03/12/2019 10:32:19 03/12/2019 11:15:10 Deep venous thrombosis 229341740 I82.409 Obesity 412554583 E66.9 Administra tion of influenza vaccine 88108135 Z23 Warfarin m onitoring status 979004041 Z51.81 Long-term current use of anticoagulant 713418284 Z79.01 Body mass index 25-29 - overweight 551497871 Z68.29 [id number] Giovanni Glass MD [address] [place] [address] 04/09/2019 13:34:55 04/09/2019 14:05:53 Deep venous thrombosis 964231020 I82.409 Obesity 287890964 E66.9 Long-term current use of anticoagulant 588374317 Z79.01 Warfarin m onitoring status 770270295 Z51.81 Body mass index 30+ - obesity 146369279 Z68.32 [id number] Giovanni Glass MD [address] [place] [address] 05/12/2019 12:26:30 05/12/2019 13:16:15 Deep venous thrombosis 344948639 I82.409 Obesity 776795154 E66.9 Long-term current use of anticoagulant 012457518 Z79.01 Warfarin m onitoring status 223484148 Z51.81 Body mass index 25-29 - overweight 761422376 Z68.29 [id number] Giovanni Glass MD [address] [place] [address] 06/10/2019 12:12:28 06/10/2019 13:11:56 Deep venous thrombosis 851965528 I82.409 Obesity 237977366 E66.9 Long-term current use of anticoagulant 608841226 Z79.01 Warfarin m onitoring status 531702595 Z51.81 Body mass index 30+ - obesity 100054522 Z68.30 [id number] Giovanni Glass MD [address] [place] [address] 07/14/2019 10:14:09 07/14/2019 11:05:57 Warfarin monitoring status 292707972 Z51.81 Long-term current use of anticoagulant 344771476 Z79.01 Deep venou s thrombosis 466682674 I82.409 Body mass index 25-29 - overweight 171537248 Z68.29 [id number] Giovanni Glass MD [address] [place] [address] 08/11/2019 12:52:26 08/11/2019 13:23:10 Deep venous thrombosis 767270255 I82.409 Obesity 888104091 E66.9 Long-term current use of anticoagulant 989563820 Z79.01 Warfarin m onitoring status 692249857 Z51.81 Body mass index 25-29 - overweight 332938083 Z68.29 [id number] Giovanni Glass MD [address] [place] [address] 09/08/2019 12:15:08 09/08/2019 13:15:13 Deep venous thrombosis 041896066 I82.409 Obesity 622653121 E66.9 Warfarin m onitoring status 925119552 Z51.81 Long-term current use of anticoagulant 780383180 Z79.01 Body mass index 30+ - obesity 205467628 Z68.30 [id number] Giovanni Glass MD [address] [place] [address] 10/08/2019 13:24:47 10/08/2019 14:33:30 Deep venous thrombosis 709254459 I82.409 Obesity 381539677 E66.9 Dysuria 81757706 R30.9 Acute urin lupillo tract infection 892990701 N39.0 Long-term current use of anticoagulant 749163675 Z79.01 Warfarin m onitoring status 803118544 Z51.81 Body mass index 25-29 - overweight 807248456 Z68.28 [id number] Giovanni Glass MD [address] [place] [address] 11/17/2019 13:14:27 11/17/2019 14:11:38 Deep venous thrombosis 718970320 I82.409 Obesity 175022234 E66.9 Long-term current use of anticoagulant 379575987 Z79.01 Warfarin m onitoring status 195115477 Z51.81 [id number] Giovanni Glass MD [address] [place] [address] 12/16/2019 13:04:29 12/16/2019 13:27:02 Deep venous thrombosis 935991357 I82.409 Obesity 689367196 E66.9 Long-term current use of anticoagulant 609323533 Z79.01 Warfarin m onitoring status 820497020 Z51.81 Body mass index 30+ - obesity 307507891 Z68.30 Gastroesop hageal reflux disease without esophagitis 443450460 K21.9 [id number] Giovanni Glass MD [address] [place] [address] 01/20/2020 12:52:16 01/20/2020 13:32:27 Obesity 424157951 E66.9 Deep venou s thrombosis 849929569 I82.409 Warfarin m onitoring status 351963978 Z51.81 Long-term current use of anticoagulant 506090343 Z79.01 Anterior epistaxis 88814 4002 R04.0 [id number] Giovanni Glass MD [address] [place] [address] 02/23/2020 10:31:42 02/23/2020 11:08:46 Obesity 358039174 E66.9 Deep venou s thrombosis 190422305 I82.409 Long-term current use of anticoagulant 802044970 Z79.01 Warfarin m onitoring status 134631194 Z51.81 Body mass index 25-29 - overweight 758750186 Z68.29 Allergic rhinitis 831351 04 J30.9 [id number] Shahnaz Herman APRN [address] [place] [address] 03/14/2020 15:12:46 03/14/2020 15:48:27 Administration of influenza vaccine 52579248 Z23 [id number] Giovanni Glass MD [address] [place] [address] 03/22/2020 10:20:39 03/22/2020 11:08:43 Deep venous thrombosis 399375667 I82.409 Obesity 302816577 E66.9 Type 2 joaquin betes mellitus 99569503 E11.9 Long-term current use of anticoagulant 309295071 Z79.01 Warfarin m onitoring status 451012808 Z51.81 Body mass index 25-29 - overweight 562405039 Z68.29 [id number] Marcelina Longo [address] [place] [address] 04/18/2020 16:16:39 04/18/2020 18:21:23 Hyperglycemia due to type 2 diabetes mellitus 0266660324 66996 E11.65 Chronic ki dney disease stage 3 474039071 N18.30 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 6430830438 05 E11.22 Mixed hyperlipidemia 267 646067 E78.2 History of deep vein thrombosis 571297414 Z86.718 History of pulmonary embolus 246232663 Z86.711 Benign ess ential hypertension 8860201 I10 Vitamin D deficiency 347 58947 E55.9 Obesity 322295866 E66.9 Peripheral vascular disease 002072723 I73.9 Body mass index 25-29 - overweight 862756822 Z68.29 Peripheral neuropathy due to type 2 diabetes mellitus 4547970737 107 E11.42 [id number] Giovanni Glass MD [address] [place] [address] 04/27/2020 09:55:53 04/27/2020 10:28:31 Anticoagulant therapy 823770628 Z79.01 Warfarin m onitoring status 812273033 Z51.81 Long-term drug therapy 391770014 Z79.899 Deep venou s thrombosis 255097390 I82.409 Seborrheic dermatitis 50 714740 L21.9 [id number] Giovanni Glass MD [address] [place] [address] 05/25/2020 09:25:00 05/25/2020 09:58:13 Deep venous thrombosis 492299038 I82.409 Obesity 714554126 E66.9 Long-term current use of anticoagulant 844705109 Z79.01 Warfarin m onitoring status 120730037 Z51.81 Body mass index 25-29 - overweight 051979230 Z68.29 [id number] Giovanni Glass MD [address] [place] [address] 06/28/2020 08:27:16 06/28/2020 09:13:33 Warfarin monitoring status 276292129 Z51.81 Deep venou s thrombosis 806387415 I82.409 Long-term current use of anticoagulant 460515167 Z79.01 Body mass index 25-29 - overweight 063163305 Z68.28 [id number] Giovanni Glass MD [address] [place] [address] 07/26/2020 08:26:04 07/26/2020 09:23:56 Deep venous thrombosis 995303435 I82.409 Obesity 266669790 E66.9 Long-term current use of anticoagulant 023325518 Z79.01 Warfarin m onitoring status 287620564 Z51.81 Body mass index 25-29 - overweight 459062166 Z68.28 [id number] Marcelina Longo APRN [address] [place] [address] 08/01/2020 15:43:18 08/01/2020 16:45:43 Hyperglycemia due to type 2 diabetes mellitus 9771598434 59288 E11.65 Chronic ki dney disease stage 3 301413622 N18.30 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 4288696644 05 E11.22 Mixed hyperlipidemia 267 298102 E78.2 History of deep vein thrombosis 373088172 Z86.718 History of pulmonary embolus 149901918 Z86.711 Benign ess ential hypertension 6529924 I10 Vitamin D deficiency 347 05912 E55.9 Obesity 455927516 E66.9 Peripheral vascular disease 987440735 I73.9 Body mass index 25-29 - overweight 838628028 Z68.29 Peripheral neuropathy due to type 2 diabetes mellitus 4698458787 107 E11.42 [id number] Giovanni Glass MD [place] [address] [facility] [place] [address] 08/24/2020 08:23:21 08/24/2020 09:45:54 Deep venous thrombosis 889551259 I82.409 Obesity 286581355 E66.9 Long-term current use of anticoagulant 893887752 Z79.01 Warfarin m onitoring status 153556619 Z51.81 Body mass index 25-29 - overweight 903915791 Z68.28 [id number] Giovanni Glass MD [address] [place] [address] 09/21/2020 08:35:33 09/21/2020 09:25:26 Deep venous thrombosis 537891252 I82.409 Long-term current use of anticoagulant 079089704 Z79.01 Warfarin m onitoring status 623528506 Z51.81 Candidiasis of skin 4988 3006 B37.2 Body mass index 25-29 - overweight 550630456 Z68.29 [id number] Giovanni Glass MD [place] [address]647 [facility] [place] [address] 10/19/2020 08:26:58 10/19/2020 09:46:50 Deep venous thrombosis 931321210 I82.409 History of pulmonary embolus 871576008 Z86.711 Long-term current use of anticoagulant 340660129 Z79.01 Warfarin m onitoring status 841988634 Z51.81 Body mass index 25-29 - overweight 517352856 Z68.29 Mixed hyperlipidemia 267 674277 E78.2 [id number] Marcelina Longo APRN [place] [address] [facility] [place] [address] 11/02/2020 12:57:56 11/02/2020 13:28:48 Hyperglycemia due to type 2 diabetes mellitus 2857402026 01356 E11.65 Chronic ki dney disease stage 3 615330644 N18.30 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 [address] 11/22/2020 09:35:52 11/22/2020 10:28:33 Deep venous thrombosis 220659006 I82.409 Obesity 200029392 E66.9 Long-term current use of anticoagulant 472187040 Z79.01 Warfarin m onitoring status 178795775 Z51.81 Body mass index 25-29 - overweight 387228268 Z68.28 [id number] Giovanni Glass MD [address] [place] [address] 12/20/2020 10:18:42 12/20/2020 11:03:46 Deep venous thrombosis 011229331 I82.409 Obesity 613231164 E66.9 Long-term current use of anticoagulant 878426336 Z79.01 Warfarin m onitoring status 756307569 Z51.81 Body mass index 25-29 - overweight 900159958 Z68.28 [id number] Giovanni Glass MD [address] [place] [address] 01/18/2021 10:07:38 01/18/2021 10:39:12 Deep venous thrombosis 814994962 I82.409 Obesity 503832375 E66.9 Long-term current use of anticoagulant 968765369 Z79.01 Warfarin m onitoring status 010309911 Z51.81 Body mass index 25-29 - overweight 503373183 Z68.29 [id number] Giovanni Glass MD [address] [place] [address] 02/15/2021 08:27:04 02/15/2021 09:28:29 Deep venous thrombosis 366809446 I82.409 Obesity 219482390 E66.9 Warfarin m onitoring status 220003646 Z51.81 Long-term current use of anticoagulant 950313139 Z79.01 Body mass index 25-29 - overweight 544221845 Z68.28 [id number] Marcelina Longo APRN [address] [place] [address] 02/21/2021 08:15:03 02/21/2021 08:56:54 Peripheral neuropathy due to type 2 diabetes mellitus 7078272040 107 E11.42 Type 2 joaquin betes mellitus without complication 260147012 E11.9 Hyperglyce nhan due to type 2 diabetes mellitus 4228708133 84866 E11.65 Chronic ki dney disease stage 3 710233568 N18.30 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 9449520181 05 E11.22 Mixed hyperlipidemia 267 598344 E78.2 History of deep vein thrombosis 725300828 Z86.718 History of pulmonary embolus 856760198 Z86.711 Benign ess ential hypertension 1100198 I10 Vitamin D deficiency 347 49514 E55.9 Obesity 016183209 E66.9 Peripheral vascular disease 377678947 I73.9 Body mass index 25-29 - overweight 524629710 Z68.28 Screening for malignant neoplasm of colon 945414139 Z12.11 [id number] Giovanni Glass MD [address] [place] [address] 03/21/2021 13:20:41 03/21/2021 14:15:05 Deep venous thrombosis 351969334 I82.409 Obesity 762532290 E66.9 Administra tion of influenza vaccine 27667268 Z23 Long-term current use of anticoagulant 742331897 Z79.01 Warfarin m onitoring status 598046170 Z51.81 Body mass index 25-29 - overweight 717891314 Z68.29 [id number] Giovanni Glass MD [address] [place] [address] 04/18/2021 12:35:38 04/18/2021 13:14:27 Deep venous thrombosis 866642269 I82.409 Obesity 297011567 E66.9 Long-term current use of anticoagulant 660388038 Z79.01 Warfarin m onitoring status 962081823 Z51.81 Body mass index 25-29 - overweight 682497742 Z68.29 [id number] Giovanni Glass MD [address] [place] [address] 7 05/02/2021 15:32:56 05/02/2021 16:17:56 Viral screening 243015524 Z11.52 Acute bronchitis 0218807 2 J20.9 [id number] Giovanni Glass MD [address] [place] [address] 05/18/2021 14:57:14 05/18/2021 15:36:22 Deep venous thrombosis 550917877 I82.409 Long-term current use of anticoagulant 832296700 Z79.01 Warfarin m onitoring status 192913085 Z51.81 Body mass index 25-29 - overweight 716796298 Z68.28 [id number] Macrelina Longo APRN [address] [place] [address] 05/23/2021 10:17:46 05/23/2021 11:45:50 Peripheral neuropathy due to type 2 diabetes mellitus 6768362293 107 E11.42 Hyperglyce nhan due to type 2 diabetes mellitus 4193811949 28510 E11.65 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 9153404184 05 E11.22 Mixed hyperlipidemia 267 662851 E78.2 History of deep vein thrombosis 874946413 Z86.718 History of pulmonary embolus 744661757 Z86.711 Benign ess ential hypertension 1298245 I10 Vitamin D deficiency 347 49723 E55.9 Obesity 283108865 E66.9 Peripheral vascular disease 200687626 I73.9 Body mass index 25-29 - overweight 488271385 Z68.27 [id number] Giovanni Glass MD [address] [place] [address] 06/21/2021 10:17:28 06/21/2021 11:12:02 Deep venous thrombosis 805239059 I82.409 Obesity 686647622 E66.9 Administra tion of SARS-CoV-2 antigen vaccine 878721024 Z23 Long-term current use of anticoagulant 271950731 Z79.01 Warfarin m onitoring status 086957886 Z51.81 Body mass index 25-29 - overweight 470619694 Z68.28 [id number] Marcelina Longo APRN [address] [place] [address] 08/29/2021 09:04:01 08/29/2021 09:49:16 Hyperglycemia due to type 2 diabetes mellitus 3134531525 94134 E11.65 Peripheral neuropathy due to type 2 diabetes mellitus 8719020252 107 E11.42 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 4541848369 05 E11.22 Mixed hyperlipidemia 267 109359 E78.2 History of deep vein thrombosis 856729945 Z86.718 History of pulmonary embolus 901667035 Z86.711 Benign ess ential hypertension 5825967 I10 Vitamin D deficiency 347 17682 E55.9 Obesity 339362719 E66.9 Peripheral vascular disease 396944376 I73.9 Body mass index 25-29 - overweight 504066443 Z68.27 Nocturia 152499603 R35.1 Fatigue 52408230 R53.83 [id number] Giovanni Glass MD [address] [place] [address] 08/10/2021 14:07:10 08/10/2021 14:40:09 Deep venous thrombosis 580739505 I82.409 Long-term current use of anticoagulant 644638302 Z79.01 Warfarin m onitoring status 083281687 Z51.81 Body mass index 25-29 - overweight 805618689 Z68.28 [id number] Giovanni Glass MD [address] [place] [address] 09/07/2021 12:19:11 09/07/2021 13:14:16 Deep venous thrombosis 101671037 I82.409 Obesity 833127943 E66.9 Long-term current use of anticoagulant 640804019 Z79.01 Warfarin m onitoring status 271198420 Z51.81 Acute sinusitis 84647485 J01.90 Body mass index 25-29 - overweight 536608184 Z68.28 [id number] Giovanni Glass MD [address] [place] [address] 10/10/2021 08:51:39 10/10/2021 09:44:59 Deep venous thrombosis 565837893 I82.409 Obesity 174782796 E66.9 Long-term current use of anticoagulant 207063430 Z79.01 Warfarin m onitoring status 978706469 Z51.81 Seborrheic dermatitis 50 909511 L21.9 Body mass index 25-29 - overweight 005970731 Z68.28 [id number] Giovanni Glass MD [address] [place] [address] 11/08/2021 10:02:43 11/08/2021 10:43:21 Deep venous thrombosis 290861248 I82.409 Long-term current use of anticoagulant 585811779 Z79.01 Warfarin m onitoring status 356177994 Z51.81 Body mass index 25-29 - overweight 762239712 Z68.28 [id number] Giovanni Glass MD [address] [place] [address] 11/28/2021 09:29:34 11/28/2021 11:26:06 Obesity 227017565 E66.9 Impacted c erumen in left ear 8122213791 361126 H61.22 resolved [id number] Marcelina Longo APRN [address] [place] [address] 12/03/2021 14:04:14 12/03/2021 14:28:38 Hyperglycemia due to type 2 diabetes mellitus 5189066198 37049 E11.65 Peripheral neuropathy due to type 2 diabetes mellitus 6488747826 107 E11.42 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 2440117450 05 E11.22 Mixed hyperlipidemia 267 718597 E78.2 History of deep vein thrombosis 422016170 Z86.718 History of pulmonary embolus 434296626 Z86.711 Benign ess ential hypertension 9370502 I10 Vitamin D deficiency 347 46279 E55.9 Obesity 226226073 E66.9 Peripheral vascular disease 667666028 I73.9 Body mass index 25-29 - overweight 698485847 Z68.27 Influenza vaccine needed 0212190318 106 Z23 [id number] Marcelina Longo [address] [place] [address] 06/13/2022 10:11:04 06/13/2022 11:27:51 Hyperglycemia due to type 2 diabetes mellitus 7134813418 24170 E11.65 Peripheral neuropathy due to type 2 diabetes mellitus 4051579195 107 E11.42 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 0854659584 05 E11.22 Mixed hyperlipidemia 267 267067 E78.2 History of deep vein thrombosis 081519741 Z86.718 History of pulmonary embolus 046676053 Z86.711 Benign ess ential hypertension 8696729 I10 Vitamin D deficiency 347 43115 E55.9 Obesity 260404529 E66.9 Peripheral vascular disease 929086561 I73.9 Body mass index 25-29 - overweight 459319260 Z68.27 [id number] Giovanni Glass MD [address] [place] [address] 09/04/2022 13:05:58 09/04/2022 14:21:20 Benign essential hypertension 4509384 I10 Chronic ki dney disease stage 3 467587546 N18.30 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 0226437037 05 E11.22 Deep venou s thrombosis 418867489 I82.409 Essential hypertension 15965313 I10 History of deep vein thrombosis 336659949 Z86.718 Hyperglyce nhan due to type 2 diabetes mellitus 8065503018 23858 E11.65 Hyperlipidemia 06639814 E78.5 Mixed hyperlipidemia 267 428216 E78.2 Obesity 370876970 E66.9 Peripheral neuropathy due to type 2 diabetes mellitus 5716594084 107 E11.42 Peripheral vascular disease 627760467 I73.9 Testicular hypofunction 949470553 E29.1 Vitamin D deficiency 347 17150 E55.9 Contusion of left upper arm 5069119831 8222999 S40.022A Contusion of left lower leg 4928393005 2243478 S80.12XA Body mass index 25-29 - overweight 623605776 Z68.27 [id number] Marcelina Longo APRN [address] [place] [address] 09/25/2022 09:16:08 09/25/2022 09:56:58 Hyperglycemia due to type 2 diabetes mellitus 0938270386 37034 E11.65 Benign ess ential hypertension 8564237 I10 Obesity 101000510 E66.9 Peripheral vascular disease 127772083 I73.9 Body mass index 25-29 - overweight 614447858 Z68.27 Peripheral neuropathy due to type 2 diabetes mellitus 6186551978 107 E11.42 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 3808764273 05 E11.22 Mixed hyperlipidemia 267 364550 E78.2 History of deep vein thrombosis 839057703 Z86.718 History of pulmonary embolus 769293503 Z86.711 Vitamin D deficiency 347 31440 E55.9 [id number] Giovanni Glass MD [address] [place] [address] 09/26/2022 09:22:53 09/26/2022 09:50:53 Benign essential hypertension 1960960 I10 Obesity 705223039 E66.9 Body mass index 25-29 - overweight 469300401 Z68.27 [id number] Marcelina Longo APRN [address] [place] [address] 01/02/2023 09:44:35 01/02/2023 10:11:08 Hyperglycemia due to type 2 diabetes mellitus 9433326225 75064 E11.65 Benign ess ential hypertension 7059734 I10 Obesity 948859970 E66.9 Peripheral vascular disease 290442398 I73.9 Body mass index 25-29 - overweight 999663744 Z68.27 Peripheral neuropathy due to type 2 diabetes mellitus 1163897240 107 E11.42 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 6815340281 05 E11.22 Mixed hyperlipidemia 267 970019 E78.2 History of deep vein thrombosis 627691064 Z86.718 History of pulmonary embolus 101112903 Z86.711 Vitamin D deficiency 347 10806 E55.9 [id number] Giovanni Glass MD [address] [place] [address] 03/13/2023 09:36:10 03/13/2023 09:47:21 Influenza vaccine needed 2267861817 106 Z23 [id number] Marcelina Longo [employer] [address] [place] [address] 04/08/2023 10:00:56 04/08/2023 11:35:24 Hyperglycemia due to type 2 diabetes mellitus 2823168048 52081 E11.65 Benign ess ential hypertension 1046309 I10 Obesity 123510893 E66.9 Peripheral vascular disease 787739070 I73.9 Body mass index 25-29 - overweight 327190911 Z68.27 Peripheral neuropathy due to type 2 diabetes mellitus 1794854316 107 E11.42 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 6157885065 05 E11.22 Mixed hyperlipidemia 267 347264 E78.2 History of deep vein thrombosis 859387346 Z86.718 History of pulmonary embolus 062065839 Z86.711 Vitamin D deficiency 347 39484 E55.9 [id number] Marcelina Longo[address] [place] [address] 07/24/2023 11:45:38 07/24/2023 12:29:24 Hyperglycemia due to type 2 diabetes mellitus 2238365508 21708 E11.65 Benign ess ential hypertension 3301007 I10 Obesity 953570808 E66.9 Peripheral vascular disease 675347218 I73.9 Body mass index 25-29 - overweight 820472305 Z68.27 Peripheral neuropathy due to type 2 diabetes mellitus 2015260942 107 E11.42 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 0399032187 05 E11.22 Mixed hyperlipidemia 267 166941 E78.2 History of deep vein thrombosis 153281381 Z86.718 History of pulmonary embolus 067728169 Z86.711 Vitamin D deficiency 347 65177 E55.9 [id number] Marcelina Longo[address] [place] [address] 10/22/2023 12:16:19 10/22/2023 13:59:48 Hyperglycemia due to type 2 diabetes mellitus 3566992942 28241 E11.65 Benign ess ential hypertension 7755979 I10 Obesity 149520252 E66.9 Peripheral vascular disease 441497640 I73.9 Body mass index 25-29 - overweight 001697951 Z68.25 Peripheral neuropathy due to type 2 diabetes mellitus 6184994543 107 E11.42 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 8717920322 05 E11.22 Mixed hyperlipidemia 267 405822 E78.2 History of deep vein thrombosis 901089296 Z86.718 History of pulmonary embolus 722395565 Z86.711 Vitamin D deficiency 347 50918 E55.9 Nocturia 162035239 R35.1 Type 2 joaquin betes mellitus without complication 005571499 E11.9 Iron defic iency anemia 41882022 D50.9 [id number] Giovanni Glass MD [address] [place] [address] 11/13/2023 12:25:04 11/13/2023 13:16:26 Benign essential hypertension 2970592 I10 Deep venou s thrombosis 364236023 I82.409 Peripheral neuropathy due to type 2 diabetes mellitus 4474011539 107 E11.42 History of deep vein thrombosis 339322827 Z86.718 History of pulmonary embolus 642336989 Z86.711 Mixed hyperlipidemia 267 062397 E78.2 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 0407401049 05 E11.22 Essential hypertension 29460655 I10 Hyperlipidemia 38950003 E78.5 Obesity 759492491 E66.9 Peripheral vascular disease 194129863 I73.9 Hyperglyce nhan due to type 2 diabetes mellitus 0618820023 92813 E11.65 Vitamin D deficiency 347 90198 E55.9 Angina pectoris 49591896 0 I20.9 Body mass index 20-24 - normal 312204422 Z68.23 [id number] Marcelina Longo APRN [address] [place] [address] 01/21/2024 10:11:47 01/21/2024 11:03:50 Hyperglycemia due to type 2 diabetes mellitus 2535935958 47002 E11.65 Benign ess ential hypertension 3527803 I10 Obesity 227745085 E66.9 Peripheral vascular disease 202407382 I73.9 Body mass index 25-29 - overweight 983315952 Z68.25 Peripheral neuropathy due to type 2 diabetes mellitus 8033827064 107 E11.42 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 5574737438 05 E11.22 Mixed hyperlipidemia 267 405760 E78.2 History of deep vein thrombosis 494511928 Z86.718 History of pulmonary embolus 755950527 Z86.711 Vitamin D deficiency 347 94782 E55.9 Iron defic iency anemia 44194178 D50.9 Prostate s pecific antigen above reference range 079987763 R97.20 [id number] Giovanni Glass MD [address] [place] [address] 02/13/2024 10:43:49 02/13/2024 11:15:41 Benign essential hypertension 9080787 I10 Essential hypertension 59099676 I10 Body mass index 25-29 - overweight 446067325 Z68.26 [id number] Kat Waldrop [facility] [address] [place] [address] 02/25/2024 08:54:25 02/25/2024 10:27:07 Essential hypertension 63720870 I10 History of pulmonary embolus 762033873 Z86.711 History of deep vein thrombosis 829462500 Z86.718 Chronic ki dney disease stage 4 253935427 N18.4 Prostate s pecific antigen above reference range 991228036 R97.20 Sensation as if urinary bladder still full 874405744 R39.14 [id number] Kat Waldrop [facility] [address] [place] [address] 03/30/2024 11:02:56 03/30/2024 12:16:32 Prostate specific antigen above reference range 299645345 R97.20 Chronic ki dney disease stage 4 854493524 N18.4 Essential hypertension 87694797 I10 History of pulmonary embolus 276171821 Z86.711 History of deep vein thrombosis 496354108 Z86.718 Sensation as if urinary bladder still full 941979587 R39.14 Benign pro static hyperplasia with outflow obstruction 378541743 N40.1 Retention of urine 12782 4002 R33.9 Multiple renal cysts 253 407829 N28.1 [id number] Shahnaz Herman APRN [address] [place] [address] 03/09/2024 11:23:07 03/09/2024 11:52:42 Influenza vaccine needed 3408079514 106 Z23 [id number] Giovanni Glass MD [address] [place] [address] 05/19/2024 12:20:48 05/19/2024 13:44:09 Adult health examination 056631089 Z00.00 Depression screening 171 378534 Z13.31 A depression screening was completed via a standardiz ed screening tool. 5 minutes were spent discussing depression screening results and risk factors. Examinatio n of blood pressure 791356947 Z01.30 Diet education 85004371 Z71.3 Counseling 748655567 Z71 .82 Exercise counseling . Patient encouraged to exercise 30 minutes 5 days a week. At [facility] ed risk for falls 428755472 Z91.81 STEADI FAST screening score of ___11__. Advance care planning 71 1589775 Z71.89 Testicular hypofunction 705205311 E29.1 Benign ess ential hypertension 1114962 I10 Deep venou s thrombosis 044334819 I82.409 Peripheral neuropathy due to type 2 diabetes mellitus 0458234073 107 E11.42 History of deep vein thrombosis 145580226 Z86.718 History of pulmonary embolus 435622197 Z86.711 Mixed hyperlipidemia 267 980411 E78.2 Vitamin D deficiency 347 60580 E55.9 Hyperglyce nhan due to type 2 diabetes mellitus 8938890682 00362 E11.65 Peripheral vascular disease 800158953 I73.9 Chronic ki dney disease stage 3 460771639 N18.30 Hyperlipidemia 56649715 E78.5 Essential hypertension 36117210 I10 Obesity 319358767 E66.9 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 9596073859 05 E11.22 Administra tion of diphtheria, pertussis, and tetanus vaccine 666141689 Z23 Administra tion of pneumococcal vaccine 19015269 Z23 Body mass index 25-29 - overweight 302213959 Z68.25 [id number] Giovanni Glass MD [address] [place] [address] 05/26/2024 10:00:13 05/26/2024 10:33:22 Benign essential hypertension 1563779 I10 Orthostati c hypotension 25986054 I95.1 Body mass index 25-29 - overweight 423110162 Z68.25 [id number] Marcelina Longo APRN [address] [place] [address] 06/21/2024 15:49:46 06/21/2024 16:39:13 Hyperglycemia due to type 2 diabetes mellitus 2497293925 08489 E11.65 Benign ess ential hypertension 8183846 I10 Obesity 842399155 E66.9 Peripheral vascular disease 009754279 I73.9 Body mass index 25-29 - overweight 431828232 Z68.25 Peripheral neuropathy due to type 2 diabetes mellitus 1607417880 107 E11.42 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 2698754551 05 E11.22 Mixed hyperlipidemia 267 619673 E78.2 History of deep vein thrombosis 947197462 Z86.718 History of pulmonary embolus 089762908 Z86.711 Vitamin D deficiency 347 24290 E55.9 Iron defic iency anemia 73625666 D50.9 Prostate s pecific antigen above reference range 262795646 R97.20 [id number] Giovanni Glass MD [address] [place] [address] 08/18/2024 13:18:55 08/18/2024 14:01:40 Testicular hypofunction 691909372 E29.1 Benign ess ential hypertension 6718239 I10 Deep venou s thrombosis 776402949 I82.409 Peripheral neuropathy due to type 2 diabetes mellitus 6208633865 107 E11.42 Mixed hyperlipidemia 267 619963 E78.2 Vitamin D deficiency 347 44020 E55.9 Hyperglyce hnan due to type 2 diabetes mellitus 0367290132 33099 E11.65 Impotence 547623155 F52. 21 Peripheral vascular disease 327817826 I73.9 Chronic ki dney disease stage 3 653288446 N18.30 Obesity 051986191 E66.9 Hyperlipidemia 19732099 E78.5 Essential hypertension 07014860 I10 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 3776952663 05 E11.22 History of deep vein thrombosis 149616074 Z86.718 History of pulmonary embolus 558847132 Z86.711 Body mass index 25-29 - overweight 730699933 Z68.26 [id number] Marcelina Narayan Donta, [address] [place] [address] 09/21/2024 14:33:55 09/21/2024 15:06:41 Hyperglycemia due to type 2 diabetes mellitus 4330112433 18341 E11.65 Benign ess ential hypertension 0956758 I10 Obesity 320664209 E66.9 Peripheral vascular disease 413721662 I73.9 Body mass index 25-29 - overweight 314964405 Z68.25 Peripheral neuropathy due to type 2 diabetes mellitus 5319463770 107 E11.42 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 7587313226 05 E11.22 Mixed hyperlipidemia 267 758435 E78.2 History of deep vein thrombosis 078505176 Z86.718 History of pulmonary embolus 246769778 Z86.711 Vitamin D deficiency 347 01410 E55.9 Iron defic iency anemia 03647895 D50.9 Prostate s pecific antigen above reference range 752473297 R97.20 Upper resp iratory tract finding 937711926 R09.89 96810254 [id number] Kat Carnes, [address] [place] [address] 10/20/2024 15:02:41 10/20/2024 16:34:21 Pruritic dermatitis 4635958450 L30.8 105 [id number] Marcelina Longo, [address] [place] [address] 11/09/2024 14:16:39 11/09/2024 15:37:06 Hyperglycemia due to type 2 diabetes mellitus 4043651671 43636 E11.65 Benign ess ential hypertension 1992171 I10 Obesity 103707263 E66.9 Peripheral vascular disease 443039592 I73.9 Body mass index 25-29 - overweight 729993567 Z68.25 Peripheral neuropathy due to type 2 diabetes mellitus 9111947314 107 E11.42 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 5754241664 05 E11.22 Mixed hyperlipidemia 267 227409 E78.2 History of deep vein thrombosis 404827074 Z86.718 History of pulmonary embolus 579253760 Z86.711 Vitamin D deficiency 347 24362 E55.9 Iron defic iency anemia 26613232 D50.9 Prostate s pecific antigen above reference range 428751332 R97.20 Dizziness 550802935 R42 29902 [id number] Giovanni Glass MD [address] [place] [address] 11/24/2024 12:29:33 11/24/2024 13:35:06 Testicular hypofunction 678010197 E29.1 Benign ess ential hypertension 2533417 I10 Deep venou s thrombosis 509441739 I82.409 Peripheral neuropathy due to type 2 diabetes mellitus 6696171153 107 E11.42 History of pulmonary embolus 762423665 Z86.711 Mixed hyperlipidemia 267 578568 E78.2 Obesity 961006785 E66.9 Peripheral vascular disease 847292700 I73.9 Impotence 555818005 F52. 21 Hyperglyce nhan due to type 2 diabetes mellitus 6829527143 60516 E11.65 Vitamin D deficiency 347 40930 E55.9 Essential hypertension 79728489 I10 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 2851311996 05 E11.22 Hyperlipidemia 96155603 E78.5 Dyspnea on exertion 6084 5006 R06.09 437636 Overweight in adulthood with body mass index of 25 or more but less than 30 282665705 Z68.25 1140780380 [id number] Marcelina Longo APRN [address] [place] [address] 12/29/2024 09:45:18 12/29/2024 10:17:41 Hyperglycemia due to type 2 diabetes mellitus 3918810763 23507 E11.65 Benign ess ential hypertension 2841760 I10 Obesity 984996663 E66.9 Peripheral vascular disease 603337382 I73.9 Body mass index 25-29 - overweight 979747301 Z68.25 Peripheral neuropathy due to type 2 diabetes mellitus 5501841098 107 E11.42 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 7435221034 05 E11.22 Mixed hyperlipidemia 267 535429 E78.2 History of deep vein thrombosis 541654278 Z86.718 History of pulmonary embolus 040275159 Z86.711 Vitamin D deficiency 347 25747 E55.9 Iron defic iency anemia 79188589 D50.9 Prostate s pecific antigen above reference range 862959493 R97.20 Overweight in adulthood with body mass index of 25 or more but less than 30 074307370 Z68.26 [id number] [id number] Giovanni Glass MD [address] [place] [address] 01/27/2025 10:38:04 01/27/2025 11:31:59 Obesity 757134627 E66.9 Adverse re action to drug 74792457 T50.905A 52526175 Overweight in adulthood with body mass index of 25 or more but less than 30 189120494 Z68.26 5113614120 [id number] Giovanni Glass MD [address] [place] [address] 03/24/2025 12:50:33 03/24/2025 13:50:15 Obesity 341080623 E66.9 Influenza vaccine needed 4554498614 106 Z23 Benign ess ential hypertension 9931626 I10 Peripheral vascular disease 744653713 I73.9 Essential hypertension 46749650 I10 Mixed hyperlipidemia 267 380577 E78.2 Hyperlipidemia 17455632 E78.5 Long-term current use of anticoagulant 767990567 Z79.01 Deep venou s thrombosis 590266486 I82.409 History of deep vein thrombosis 187449366 Z86.718 History of pulmonary embolus 158679076 Z86.711 Hyperglyce nhan due to type 2 diabetes mellitus 8155049197 03703 E11.65 Testicular hypofunction 251221219 E29.1 Vitamin D deficiency 347 58551 E55.9 Chronic ki dney disease stage 3 720828136 N18.30 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 8425669505 05 E11.22 Impotence 710782718 F52. 21 Peripheral neuropathy due to type 2 diabetes mellitus 3301323165 107 E11.42 Chronic sy stolic heart failure 207303643 I50.22 763503 Pruritic d isorder of skin 1623848554 L29.9 33327 Weakness o f bilateral lower limb 1635059392 68121 R29.898 679827 Overweight in adulthood with body mass index of 25 or more but less than 30 055027280 Z68.26 8430428163 [id number] Marcelina Longo APRN [address] [place] [address] 04/06/2025 09:36:33 04/06/2025 10:11:00 Hyperglycemia due to type 2 diabetes mellitus 1083900830 70184 E11.65 Benign ess ential hypertension 7468007 I10 Obesity 420828281 E66.9 Peripheral vascular disease 692686331 I73.9 Body mass index 25-29 - overweight 203255733 Z68.25 Peripheral neuropathy due to type 2 diabetes mellitus 3053894282 107 E11.42 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 7392259851 05 E11.22 Mixed hyperlipidemia 267 133126 E78.2 History of deep vein thrombosis 525502195 Z86.718 History of pulmonary embolus 388437365 Z86.711 Vitamin D deficiency 347 74919 E55.9 Iron defic iency anemia 13703004 D50.9 Prostate s pecific antigen above reference range 661419414 R97.20 Overweight in adulthood with body mass index of 25 or more but less than 30 410414186 Z68.26 375800 Nocturia 303307521 R35.1 78090 History of heart failure 288159218 Z86.79 864457 Health Concerns Section Related Observation LastModified by [...] (MEDICARE REPLACEMENT/AD VANTAGE - PPO) Owen Salazar [id number] Owen Salazar 01/27/2025 1 HUMANA (PPO) Owen Salazar [id number] Owen Salazar 01/27/2025 3 [employer] (MEDICARE SUPPLEMENT) [id number] Owen Salazar [id number] Owen Salazar 11/21/2016 2 UNSPECIFIED REMIT PAYOR Owen Salazar 01/27/2025 2 [employer] (MEDICARE SUPPLEMENT) Owen Salazar [id number] Owen Salazar 04/28/2025 1 [employer] (MEDICARE REPLACEMENT/AD VANTAGE - PPO) Owen Salazar [id number] Owen Salazar 01/27/2025 1 [place] Saul Salazar [id number] Owen Salazar 01/27/2025 2 [place] [id number] Owen Salazar [id number] Owen Salazar 01/27/2025 1 [place] Saul Salazar [id number] Owen Salazar 01/27/2025 NGS NATIONAL - [place] [facility] (MEDICARE) Owen Salazar [id number] Owen Salazar 03/02/2018 2 UNSPECIFIED REMIT PAYOR Owen Salazar Notes Date Note Type Note Provider Name and Address Organization Details Recorded Time 11/24/2024 text/html C/O dyspnea with exertion. No chest pain, pressure, heaviness. Had abnormal CXR years ago and wants repeat. Dr. Pickard wanted to send to [facility] for ht cath but he declined. Giovanni Glass MD [facility] [address], [place], [address], [place] - [facility] 11/24/2024 13:29:21 12/29/2024 text/html Saul [...] His PCP is Dr. Glass. He sees fuel assembler, Dr. Moser, every 3 months. His email marketing assistant is Dr. Juárez. He refuses colonoscopy or cologuard. Last PSA: 02/25/2024 Chronic issues reviewed and stable. Marcelina Longo APRN [address], [place], [address], [place] - [facility] 12/29/2024 10:17:31 01/27/2025 text/html C/O 3 week history rash all over and itching. Was thought by email marketing assistant to be from torsemide which he just started. Is off that but rash persists. Also getting weaker with poor balance. Can safely use cane or walker to accomplish MRADLs and needs walker. Giovanni Glass MD [address], [place], [address], [facility] - [facility] 03/18/2025 15:38:51 03/24/2025 text/html Emergency Depart ment Follow-Up RecordReported by Patient Here for hoap F/U. In with SVT, rate 200, CHF, acute on chronic kidney injury. Rate was slowed and feels better. Still weak in legs and they recc PT. Lasix was decreased to 10 mg daily. Needs med for itch. Giovanni Glass MD [address], [place], [address], [facility] - [facility] 03/24/2025 13:58:35 04/06/2025 text/html Saul [...] His PCP is Dr. Glass. He sees fuel assembler, Dr. Moser, every 3 months. His email marketing assistant is Dr. Juárez. He refuses colonoscopy or cologuard. Last PSA: 02/25/2024 - he refuses to have blood drawn today because he was stuck so many times during his recent hospitalization. Chronic issues reviewed and stable. Marcelina Longo APRN [address], [place], [address], [place] - [facility] 04/06/2025 10:12:12
--- OUTSIDE RECORDS SUMMARY | 2025-05-02 11:05 | XMS_ITS | Clinical Summary ---
Author Organization Healthcare Address 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 Role Phone Pcp, No Primary [...] Type Department Care Team Description 04/01/2025 Telephone [facility] [address] [place] [address] Sybil Segura RN 03/09/2025 Travel 03/08/2025 Travel 03/07/2025 Travel 03/06/2025 7:34 PM EDT - 03/10/2025 5:07 PM EDT Hospital Encounter PAV A Inpatient [address] [place] [address] Nabor Tam MD Sweeney, MD Yesi Elizalde, Elgin Luciano MD Keyur, Harish Ghotra MD ROSA (acute kidney injury) ([facility]) (Primary Dx); SVT (supraventricular tachycardia) ([facility]) Discharge Disposition: Home or Self Care 03/06/2025 [...] any time in the past 12 m [facility], were you homeless or living in a senior care (including now)? No 03/07/2025 [facility] Utilities Answer Date Recorded In the past 12 months has th e [employer], gas, oil, or water company threatened to [...] or (1 - 1-dose 75+ series) 2016 [id number] Vaccine ( - 2024- season) 2025 06/21/2021, [...] ECG ADULT STAT 03/06/2025 7:31 PM EDT [facility], E/M 30-74 MINUTES Routine 03/06/2025 7:17 PM EDT from Last 3 Months Results * (ABNORMAL) POCT glucose meter (03/10/2025 12:13 PM EDT) Only the most recent of16 resultswithin the time period is included. [facility] POCT Glucose 192(H) 74 - 99 mg/dL 03/10/2025 12:15 PM EDT [employer] [facility] Comment:Accuracy of a glucos e result [...] Comment 03/10/2025 12:15 PM EDT [facility] Marine Superintendent ID Daniel Loving V 025 12:15 PM EDT HEALTHCARE LAB Device ID [id number] 03/10/2025 12:15 PM EDT [facility]ALTH[facility]ARE LAB Specimen Type POC Capillary 03/10/2025 12:15 PM EDT [facility] Blood Capillary blood specimen / Unknown 03/10/2025 12:13 PM EDT 03/10/2025 12:15 PM EDT Harish Baer MD LAB POINT OF CARE TE ST DOCKED DEVICE UNSOLICITED RESULTS Final Result [facility] [address] [place] [address] * (ABNORMAL) [place] Lambda Quant Free Light Chains w/Ratio (03/10/2025 2:04 AM EDT) Pathologist [facility] [place] Lambda Free Light Chain Ratio 1.21 0.26 - 1.65 Ratio 03/11/2025 12:24 AM EDT [facility] [place] Quant Free Light Chains 61.25(H) 3.30 - 19.40 mg/L 03/11/2025 12:24 AM EDT [facility] Lambda Quant Free Light Chains 50.82(H) 5.71 - 26.30 mg/L 03/11/2025 12:24 AM EDT [facility] Blood Venous blood specimen / Unknown Venipuncture / Unknown 03/10/2025 2:04 AM EDT 03/10/2025 2:13 AM EDT Narrative [facility] - 03/11/2025 12:24 AM EDT [...] with the testing laboratory. Test performed at [facility],Special Chemistry Laboratory. us Harish Baer MD LAB BLOOD ORDERABLES Final Resu lt Performing Organization Address [facility]/ZIP Co de Phone Number [facility] [address] [place] [address] * (ABNORMAL) Cystatin C (03/10/2025 2:04 AM EDT) Only the most recent of4 resultswithin the time period is included. Pathologist [facility] Cystatin C 3.22(H) 0.61 - 0.95 mg/L 03/10/2025 2:46 AM EDT [facility] Blood Venous blood specimen / Unknown Venipuncture / Unknown 03/10/2025 2:04 AM EDT 03/10/2025 2:14 AM EDT us Harish Baer MD LAB BLOOD ORDERABLES Final Resu lt Performing Organization Address [facility] Co de Phone Number [facility] [address] [place] [address] * Hepatitis panel, acute (03/10/2025 2:04 AM EDT) [facility] Hepatitis B Surf Antigen Negative Negative 03/10/2025 3:44 AM EDT [facility] Hepatitis C Antibody Negative Negative 03/10/2025 3:44 AM EDT [facility] Hepatitis A Antibody IgM Negative Negative 03/10/2025 3:44 AM EDT [facility] Hepatitis B Core Antibody IgM Negative Negative 03/10/2025 3:44 AM EDT [facility] Blood Venous blood specimen / Unknown Venipuncture / Unknown 03/10/2025 2:04 AM EDT 03/10/2025 2:13 AM EDT us Harish Baer MD LAB BLOOD ORDERABLES Final Resu lt Performing Organization Address [facility] Co de Phone Number [facility] [address] [place] [address] * (ABNORMAL) CBC W/O Differential (03/10/2025 2:04 AM EDT) Only the most recent of4 resultswithin the time period is included. Pathologist [facility] WBC Count 4.02 3.70 - 10.30 10*3/uL LAB HEMATOLOGY METHOD 03/10/2025 2:22 AM EDT [facility] RBC Count 2.90(L) 4.60 - 6.10 10*6/uL LAB HEMATOLOGY METHOD 03/10/2025 2:22 AM EDT [facility] HGB 8.6(L) 13.7 - 17.5 g/dL LAB HEMATOLOGY METHOD 03/10/2025 2:22 AM EDT [facility] HCT 26.2(L) 40.0 - 51.0 % LAB HEMATOLOGY METHOD 03/10/2025 2:22 AM EDT [facility] Platelet Count 159 155 - 369 10*3/uL LAB HEMATOLOGY METHOD 03/10/2025 2:22 AM EDT [facility] MCV 90 79 - 98 fL LAB HEMATOLOGY METHOD 03/10/2025 2:22 AM EDT [facility] MCH 29.7 26.0 - 32.0 pg LAB HEMATOLOGY METHOD 03/10/2025 2:22 AM EDT [facility] MCHC 32.8 30.7 - 35.5 g/dL LAB HEMATOLOGY METHOD 03/10/2025 2:22 AM EDT [facility] RDW 13.2 11.5 - 14.5 % LAB HEMATOLOGY METHOD 03/10/2025 2:22 AM EDT [facility] MPV 10.4 8.8 - 12.5 fL LAB HEMATOLOGY METHOD 03/10/2025 2:22 AM EDT [facility] nRBC 0.0 <=0.0 per 100 WBCs LAB HEMATOLOGY METHOD 03/10/2025 2:22 AM EDT [facility] Blood Venous blood specimen / Unknown Venipuncture / Unknown 03/10/2025 2:04 AM EDT 03/10/2025 2:14 AM EDT us Harish Baer MD LAB BLOOD ORDERABLES Final Resu lt [facility] [address] [place] [address] * (ABNORMAL) C-Reactive Protein, Plasma (03/10/2025 2:04 AM EDT) Only the most recent of3 resultswithin the time period is included. CRP, Plasma 26.7(H) <=8.0 mg/L 03/10/2025 2:46 AM EDT [facility] Blood Venous blood specimen / Unknown Venipuncture / Unknown 03/10/2025 2:04 AM EDT 03/10/2025 2:14 AM EDT Narrative [facility] - 03/10/2025 2:46 AM EDT This CRP test is appropriate for assessment of infection, systemic inflammation and/or tissue injury. To assess cardiovascular disease risk order high sensitivity CRP (CRPH). us Harish Baer MD LAB BLOOD ORDERABLES Final Resu lt Performing Organization Address [facility] Co de Phone Number [facility] [address] [place] [address] * Phosphorus, Plasma (03/10/2025 2:04 AM EDT) Only the most recent of4 resultswithin the time period is included. [facility] Phosphorus, Plasma 3.2 2.5 - 4.5 mg/dL 03/10/2025 2:46 AM EDT [facility] Blood Venous blood specimen / Unknown Venipuncture / Unknown 03/10/2025 2:04 AM EDT 03/10/2025 2:14 AM EDT us Harish Baer MD LAB BLOOD ORDERABLES Final Resu lt Performing Organization Address City/[facility]/ZIP Co de Phone Number [facility] [address] [place] [address] * (ABNORMAL) Magnesium, Plasma (03/10/2025 2:04 AM EDT) Only the most recent of5 resultswithin the time period is included. Magnesium, Plasma 1.8(L) 1.9 - 2.4 mg/dL 03/10/2025 2:46 AM EDT [facility] Blood Venous blood specimen / Unknown Venipuncture / Unknown 03/10/2025 2:04 AM EDT 03/10/2025 2:14 AM EDT us Harish Baer MD LAB BLOOD ORDERABLES Final Resu lt [facility] [address] [place] [address] * (ABNORMAL) Comprehensive Metabolic Panel, Plasma (03/10/2025 2:04 AM EDT) Only the most recent of4 resultswithin the time period is included. Glucose, Plasma 177(H) 74 - 99 mg/dL 03/10/2025 2:46 AM EDT [facility] BUN, Plasma 42(H) 8 - 23 mg/dL 03/10/2025 2:46 AM EDT [facility] Creatinine, Plasma 3.78(H) 0.70 - 1.20 mg/dL 03/10/2025 2:46 AM EDT [facility] BUN/Creatinine Ratio 11 03/10/2025 2:46 AM EDT [facility] Sodium, Plasma 136 136 - 145 mmol/L 03/10/2025 2:46 AM EDT [facility] Potassium, Plasma 3.8 3.6 - 4.9 mmol/L 03/10/2025 2:46 AM EDT [facility] Chloride, Plasma 104 97 - 107 mmol/L 03/10/2025 2:46 AM EDT [facility] CO2, Plasma 21(L) 22 - 29 mmol/L 03/10/2025 2:46 AM EDT [facility] Anion Gap 11 6 - 16 mmol/L 03/10/2025 2:46 AM EDT [facility] Total Calcium, Plasma 7.2(L) 8.9 - 10.2 mg/dL 03/10/2025 2:46 AM EDT [facility] Total Protein 4.1(L) 6.3 - 7.9 g/dL 03/10/2025 2:46 AM EDT [facility] Albumin, Plasma 2.0(L) 3.5 - 5.2 g/dL 03/10/2025 2:46 AM EDT [facility] AST, Plasma 17 10 - 50 U/L 03/10/2025 2:46 AM EDT [facility] ALT, Plasma 11 10 - 50 U/L 03/10/2025 2:46 AM EDT [facility] Alkaline Phosphatase, Plasma 75 40 - 115 U/L 03/10/2025 2:46 AM EDT [facility] Total Bilirubin, Plasma 0.3 0.2 - 1.1 mg/dL 03/10/2025 2:46 AM EDT [facility] eGFRcr 15.1 mL/min/1.7 3m*2 03/10/2025 2:46 AM EDT [facility] Comment:Reported eGFRcr in m L/min/1.73m2 is based the CKD-EPI 2020 equation that does not use a race coefficient. Blood Venous blood specimen / Unknown Venipuncture / Unknown 03/10/2025 2:04 AM EDT 03/10/2025 2:14 AM EDT Harish Baer MD LAB BLOOD ORDERABLES Final Resu lt [facility] [address] [place] [address] * Thrombospondin Type-1 Domain-Containing 7A Antibodies, S (03/09/2025 5:32 PM EDT) THSD7A Ab, S Negative Negative 03/14/2025 2:26 PM EDT [facility] ([place]) Comment: ADDITIONAL INFORMATION This test was developed and its performance characteristics determined by [facility] in a manner consistent with CLIA requirements. This test has not been cleared or approved by the U.S. Food and Drug Administration. Test Performed by: [facility] - [address] [address] Production Artist: Иван Mariano Ph.D.; CLIA# [id number] Blood Venous blood specimen / Unknown Venipuncture / Unknown 03/09/2025 5:32 PM EDT 03/09/2025 5:59 PM EDT us Harish Baer MD LAB REF LAB BLOOD AND FLUID ORD Final Result Performing Organization Address City/[facility]/ZIP Co de Phone Number [facility]) * Phospholipase A2 Receptor, Immunofluorescence, S (03/09/2025 5:32 PM EDT) PLA2R, Immunofluorescence, S Negative Negative 03/14/2025 2:26 PM EDT [facility] ([facility]) Comment: PLA2R is Negative ADDITIONAL INFORMATION This test was developed and its performance characteristics determined by [facility] in a manner consistent with CLIA requirements. This test has not been cleared or approved by the U.S. Food and Drug Administration. Test Performed by: [place] [address] Production Artist: Иван Mariano Ph.D.; CLIA# [id number] Blood Venous blood specimen / Unknown Venipuncture / Unknown 03/09/2025 5:32 PM EDT 03/09/2025 5:59 PM EDT Harish Baer MD LAB REF LAB BLOOD AND FLUID ORD Final Result Performing Organization Address [facility] Co de Phone Number [facility]) * Primary Membranous Nephropathy Diagnostic [place], S (SO) (03/09/2025 5:32 PM EDT) Phospholipase A2 Receptor GIOVANNI,S <2 RU/mL 03/14/2025 11:46 AM EDT [facility] ([facility]) Comment: REFERENCE VALUE <14 RU/mL: Negative >=14 to <20 RU/mL: Borderline >=20 RU/mL: Positive Test Performed by: [place] [address] Production Artist: Иван Mariano Ph.D.; CLIA# [id number] Blood Venous blood specimen / Unknown Venipuncture / Unknown 03/09/2025 5:32 PM EDT 03/09/2025 5:59 PM EDT Harish Baer MD LAB REF LAB BLOOD AND FLUID ORD Final Result [facility] ([place]) * (ABNORMAL) Total Protein, Serum (03/09/2025 5:32 PM EDT) Total Protein 4.2(L) 6.2 - 7.7 g/dL 03/09/2025 6:22 PM EDT [facility] Blood Venous blood specimen / Unknown Venipuncture / Unknown 03/09/2025 5:32 PM EDT 03/09/2025 5:53 PM EDT Harish Baer MD LAB BLOOD ORDERABLES Final Resu lt [facility] [address] [place] [address] * (ABNORMAL) Protein Electrophoresis, Serum (03/09/2025 5:32 PM EDT) Albumin Electrophoresis, Serum 2.0(L) 3.6 - 4.7 g/dL 03/10/2025 2:36 AM EDT [facility] Alpha 1 Globulin Electrophoresis, Serum 0.4 0.2 - 0.4 g/dL 03/10/2025 2:36 AM EDT [facility] Alpha 2 Globulin Electrophoresis, Serum 1.0(H) 0.5 - 0.9 g/dL 03/10/2025 2:36 AM EDT [facility] Beta 1 Globulin Electrophoresis, Serum 0.2(L) 0.3 - 0.5 g/dL 03/10/2025 2:36 AM EDT [facility] Beta 2 Globulin Electrophoresis, Serum 0.3 0.2 - 0.5 g/dL 03/10/2025 2:36 AM EDT [facility] Gamma Globulin Electrophoresis, Serum 0.3(L) 0.6 - 1.5 g/dL 03/10/2025 2:36 AM EDT [facility] Interpretation, Serum Protein Electrophoresis Pathology report to follow. 03/10/2025 2:36 AM EDT [facility] Blood Venous blood specimen / Unknown Venipuncture / Unknown 03/09/2025 5:32 PM EDT 03/09/2025 5:54 PM EDT Harish Baer MD LAB BLOOD ORDERABLES Final Resu lt Performing Organization Address [facility] Co de Phone Number [facility] [address] [place] [address] * Protein electrophoresis serum, pathologist interpretation (03/09/2025 5:32 PM EDT) Clinical Diagnosis, SPEP Nephrotic Syndrome 03/10/2025 11:18 AM EDT [facility] Interpretation , SPEP There is [...] diagnosis or interpretation. 03/10/2025 11:18 AM EDT [facility] Pathologist Signature, SPEP Reviewed by: Sorin Montoya MD 03/10/2025 11:18 AM EDT [facility] LAB CP ASR DISCLAIMER Yes 03/10/2025 11:18 AM EDT [facility] Blood Venous blood specimen / Unknown Venipuncture / Unknown 03/09/2025 5:32 PM EDT 03/09/2025 5:54 PM EDT Harish Baer MD LAB PATHOLOGY ORDERABLES Final Result Performing Organization Address City/[facility]/ZIP Co de Phone Number [facility] [address] [place] [address] * Glomerular Basement Membrane Antibody, IgG (03/09/2025 5:32 PM EDT) GBM AB, IGG BY MULTIPLEX BEAD ASSAY 0 0 - 19 AU/mL 03/12/2025 7:37 AM EDT [facility] ([facility]) Blood Venous blood specimen / Unknown Venipuncture / Unknown 03/09/2025 5:32 PM EDT 03/09/2025 5:54 PM EDT Narrative [facility] [employer]) - 03/12/2025 7:37 AM EDT INTERPRETIVE INFORMATION: [...] and assessment of renal prognosis. Performed By: [facility] [address] [place] [id number] Technical Proposal Writer: Xavi Queen MD, PhD CLIA Number: [id number] us Harish Baer MD LAB BLOOD ORDERABLES Final Resu [facility]) [address] [place] [address] * Antinuclear Antibody (LC) with HEp-2 Substrate, IgG by IFA (03/09/2025 5:32 PM EDT) [facility] LC INTERPRETIVE COMMENT See Note 03/12/2025 11:08 PM EDT [facility] ([employer]) Anti Nuc Ab Screen <1:80 <1:80 03/12/2025 11:08 PM EDT [facility] ([employer]) Blood Venous blood specimen / Unknown Venipuncture / Unknown 03/09/2025 5:32 PM EDT 03/09/2025 5:54 PM EDT Narrative [facility] ([place]) - 03/12/2025 11:08 PM EDT [...] not necessarily rule out SARD. Performed By: [facility] [address] [place] [address] Technical Proposal Writer: Xavi Queen MD, PhD CLIA Number: [id number] Harish Baer MD LAB BLOOD ORDERABLES Final Resu lt [facility] ([place]) [address] [place] [address] * CT Abdomen Pelvis wo IV Contrast [...] seen. LAB HEMATOLOGY METHOD 1:55 AM EDT [facility] RBC Morphology Slide Reviewed LAB HEMATOLOGY METHOD 1:55 AM EDT [facility] Blood Venous blood specimen / Unknown Venipuncture / Unknown 03/09/2025 12:33 AM EDT 03/09/2025 12:54 AM EDT Harish Baer MD LAB BLOOD ORDERABLES Final Resu lt Performing Organization Address [facility]/ZIP Co de Phone Number [facility] [address] [place] [address] * Prostate Cancer Screen, PSA Total (03/09/2025 12:33 AM EDT) Pathologist [facility] Prostate Cancer Screen, Serum 2.11 0.00 - 6.50 ng/mL 03/09/2025 1:30 AM EDT [facility] Blood Venous blood specimen / Unknown Venipuncture / Unknown 03/09/2025 12:33 AM EDT 03/09/2025 12:52 AM EDT Narrative [facility] - 03/09/2025 1:30 AM EDT Performed by [employer] electrochemiluminescent immunoassay which is standardized against the PSA Bird Reference Standard (WHO 96/670). Results obtained with different test methods or kits cannot be used interchangeably. Harish Baer MD LAB BLOOD ORDERABLES Final Resu lt Performing Organization Address [facility]/ZIP Co de Phone Number [facility] [address] [place] [address] * (ABNORMAL) Iron & Total Iron Binding Capacity, Plasma (Includes Transferrin) (03/09/2025 12:33 AM EDT) Only the most recent of2 resultswithin the time period is included. Iron, Plasma 34(L) 50 - 170 ug/dL 03/09/2025 1:25 AM EDT [facility] Transferrin, Plasma 103(L) 200 - 360 mg/dL 03/09/2025 1:25 AM EDT [facility] Total Iron Binding Capacity, Plasma 129(L) 240 - 450 ug/mL 03/09/2025 1:25 AM EDT [facility] Transferrin Saturation 26 14 - 50 % 03/09/2025 1:25 AM EDT [facility] Blood Venous blood specimen / Unknown Venipuncture / Unknown 03/09/2025 12:33 AM EDT 03/09/2025 12:51 AM EDT us Harish Baer MD LAB BLOOD ORDERABLES Final Resu lt Performing Organization Address [facility] Co de Phone Number [facility] [address] [place] [address] * (ABNORMAL) Prothrombin Time/INR (03/09/2025 12:33 AM EDT) Only the most recent of3 resultswithin the time period is included. Prothrombin Time 29.8(H) 12.0 - 14.3 sec LAB COAGULATION METHOD 03/09/2025 1:15 AM EDT [facility] INR 2.8(H) 0.9 - 1.1 LAB COAGULATION METHOD 03/09/2025 1:15 AM EDT [facility] Blood Venous blood specimen / Unknown Venipuncture / Unknown 03/09/2025 12:33 AM EDT 03/09/2025 12:47 AM EDT Narrative [facility] - 03/09/2025 1:15 AM EDT OPTIMAL INR RANGES FOR PATIENT ON ORAL ANTICOAGULANT THERAPY Prevention of venous thromboembolism INR 2.0 to 3.0 In patients with heart disease: Atrial fibrillation INR 2.0 to 3.0 Valvular heart disease INR 2.0 to 3.0 Tissue heart valves INR 2.0 to 3.0 Mechanical prosthetic valves INR 2.5 to 3.5 Prevention of recurrent IN INR 2.5 to 3.5 us Harish Baer MD LAB BLOOD ORDERABLES Final Resu lt [facility] [address] [place] [address] * Rheumatoid factor, Plasma (03/09/2025 12:33 AM EDT) Rheumatoid Factor, Plasma <10 <14 IU/mL 03/09/2025 4:59 PM EDT [facility] Blood Venous blood specimen / Unknown Venipuncture / Unknown 03/09/2025 12:33 AM EDT 03/09/2025 12:51 AM EDT us Harish Baer MD LAB BLOOD ORDERABLES Final Resu lt Performing Organization Address City/[facility]/ZIP Co de Phone Number [facility] [address] [place] [address] * C3 complement (03/09/2025 12:33 AM EDT) C3 Complement 115 84 - 166 mg/dL 03/09/2025 5:00 PM EDT [facility] Blood Venous blood specimen / Unknown Venipuncture / Unknown 03/09/2025 12:33 AM EDT 03/09/2025 12:52 AM EDT us Harish Baer MD LAB BLOOD ORDERABLES Final Resu lt Performing Organization Address [facility]/[place] [address] * C4 complement (03/09/2025 12:33 AM EDT) C4 Complement 25 13 - 36 mg/dL 03/09/2025 5:00 PM EDT [facility] Blood Venous blood specimen / Unknown Venipuncture / Unknown 03/09/2025 12:33 AM EDT 03/09/2025 12:52 AM EDT us Harish Baer MD LAB BLOOD ORDERABLES Final Resu lt Performing Organization Address [facility]/[place] [address] * (ABNORMAL) PTH, intact (03/09/2025 12:33 AM EDT) PTH Intact Total 220(H) 9 - 77 pg/mL 03/09/2025 11:15 AM EDT [facility] Blood Venous blood specimen / Unknown Venipuncture / Unknown 03/09/2025 12:33 AM EDT 03/09/2025 1:08 AM EDT Narrative [facility] - 03/09/2025 11:15 AM EDT Assay performed by immunoassay at the [facility]. Performed on [employer] chemiluminescent immunoassay, tractable to the World Health Organization's first international standard for PTH from the [facility], Code 79/500. Results obtained from different test methods or kits cannot be used interchangeably. us Harish Baer MD LAB BLOOD ORDERABLES Final Resu lt Performing Organization Address City/[facility]/ZIP Co de Phone Number [facility] [address] [place] [address] * (ABNORMAL) Folate, Serum (03/09/2025 12:33 AM EDT) Only the most recent of2 resultswithin the time period is included. Folate, Serum 4.3(L) >4.6 ng/mL 03/09/2025 1:36 AM EDT [facility] Blood Venous blood specimen / Unknown Venipuncture / Unknown 03/09/2025 12:33 AM EDT 03/09/2025 12:52 AM EDT us Harish Baer MD LAB BLOOD ORDERABLES Final Resu lt Performing Organization Address [facility] Co de Phone Number [facility] [address] [place] [address] * Vitamin B12, Serum (03/09/2025 12:33 AM EDT) Only the most recent of2 resultswithin the time period is included. Vitamin B12, Serum 333 210 - 1,033 pg/mL 03/09/2025 1:36 AM EDT [facility] Blood Venous blood specimen / Unknown Venipuncture / Unknown 03/09/2025 12:33 AM EDT 03/09/2025 12:52 AM EDT us Harish Baer MD LAB BLOOD ORDERABLES Final Resu lt Performing Organization Address City/[facility]/ZIP Co de Phone Number [facility] [address] [place] [address] * (ABNORMAL) Albumin-creatinine ratio, 24 hr urine (03/08/2025 10:07 PM EDT) Microalbumin, Urine >440.0(H) <1.9 mg/dL 03/08/2025 11:16 PM EDT [facility] Albumin per day 11:16 PM EDT [facility] [facility] Comment:Unable to calculate, at least one value is above or below the detection limit. Microalbumin Excretion Rate 03/08/2025 11:16 PM EDT [facility] Comment:Unable to calculate, at least one value is above or below the detection limit. Creatinine, Urine 90 mg/dL 11:16 PM EDT [facility] Creatinine, 24H Ur 540(L) 800 - 2,500 mg/d 03/08/2025 11:16 PM EDT [facility] Comment:Unable to calculate, at least one value is above or below the detection limit. Albumin/Creatinin e Ratio 03/08/2025 11:16 PM EDT [facility] Comment:Unable to calculate, at least one value is above or below the detection limit. Hours Of Collection 24 HRS 03/08/2025 11:16 PM EDT [facility] Urine, Volume 600 mL 03/08/2025 11:16 PM EDT [facility] Urine Urine specimen obtained by clean catch procedure / Unknown Non-blood Collection / Unknown 03/08/2025 10:07 PM EDT 03/08/2025 10:32 PM EDT us Harish Baer MD LAB URINE ORDERABLES Final Resu lt [facility] [address] [place] [address] * (ABNORMAL) Creatinine, 24 Hour Urine (03/08/2025 10:07 PM EDT) Creatinine, Urine 90 mg/dL 03/08/2025 11:11 PM EDT [facility] Creatinine per day, Urine 540(L) 800 - 2,500 mg/d 03/08/2025 11:11 PM EDT [facility] Hours Of Collection 24 HRS 03/08/2025 11:11 PM EDT [facility] Urine, Volume 600 mL 03/08/2025 11:11 PM EDT [facility] Urine Urine specimen obtained by clean catch procedure / Unknown Non-blood Collection / Unknown 03/08/2025 10:07 PM EDT 03/08/2025 10:32 PM EDT Harish Baer MD LAB URINE ORDERABLES Final Resu lt Performing Organization Address City/[facility]/ZIP Co de Phone Number [facility] [address] [place] [address] * Total Protein, 24 Hour Urine (03/08/2025 10:07 PM EDT) Protein, Urine 832 mg/dL 03/08/2025 11:35 PM EDT [facility] Total Protein per day 4,992 mg/day 03/08/2025 11:35 PM EDT [facility] Hours Of Collection 24 HRS 03/08/2025 11:35 PM EDT [facility] Urine, Volume 600 mL 03/08/2025 11:35 PM EDT [facility] Urine Urine specimen obtained by clean catch procedure / Unknown Non-blood Collection / Unknown 03/08/2025 10:07 PM EDT 03/08/2025 10:32 PM EDT Narrative [facility] - 03/08/2025 11:35 PM EDT Reference Range <80 mg/day if bed rest <150 mg/day if ambulatory Harish Baer MD LAB URINE ORDERABLES Final Resu lt [facility] [address] [place] [address] * Pulmonary function testing (03/08/2025 10:01 AM EDT) [id number] 2.49 L 03/08/2025 9:58 AM EDT VY[facility]RE PFT FEV1 PRE 1.73 L 03/08/2025 9:58 AM EDT VYAIRE PFT FEV1/FVC PRE 69.35 % 03/08/2025 9:58 AM EDT VYAIRE PFT OGX45-85% PRE 1.20 L/s 03/08/2025 9:58 AM EDT VYAIRE PFT PEF PRE 3.51 L/s 03/08/2025 9:58 AM EDT VYAIRE PFT Anatomical Region Laterality Modality PFT 03/08/2025 9:38 AM EDT Narrative 03/09/2025 9:42 AM EDT Pulmonary Function Testing Report Owen Salazar underwent pulmonary function testing today at the [facility]. The patient underwent spirometry. All tests [...] LAB COAGULATION METHOD 03/08/2025 7:14 AM EDT [facility] Blood Venous blood specimen / Unknown Venipuncture / Unknown 03/08/2025 6:15 AM EDT 03/08/2025 6:30 AM EDT Narrative [facility] - 03/08/2025 7:14 AM EDT [...] MD LAB BLOOD ORDERABLES Final Resu lt [facility] [address] [place] [address] * Urea Nitrogen, Random Urine (03/07/2025 9:27 PM EDT) Only the most recent of2 resultswithin the time period is included. Urea Nitrogen, Urine 384 mg/dL 03/07/2025 11:10 PM EDT [facility] Urine Urine specimen obtained by clean catch procedure / Unknown Non-blood Collection / Unknown 03/07/2025 9:27 PM EDT 03/07/2025 9:50 PM EDT Harish Baer MD LAB URINE ORDERABLES Final Resu lt Performing Organization Address City/[facility]/ZIP Co de Phone Number [facility] [address] [place] [address] * (ABNORMAL) Albumin-creatinine ratio, urine, random (03/07/2025 9:27 PM EDT) Microalbumin, Urine >440.0(H) <1.9 mg/dL 03/07/2025 11:10 PM EDT [facility] Creatinine, Urine 86 mg/dL 03/07/2025 11:10 PM EDT [facility] Albumin/Creati nine Ratio 03/07/2025 11:10 PM EDT [facility] Comment:Unable to calculate, at least one value is above or below the detection limit. Urine Urine specimen obtained by clean catch procedure / Unknown Non-blood Collection / Unknown 03/07/2025 9:27 PM EDT 03/07/2025 9:50 PM EDT Harish Baer MD LAB URINE ORDERABLES Final Resu lt [facility] [address] [place] [address] * Sodium, Random, Urine (03/07/2025 9:27 PM EDT) Only the most recent of2 resultswithin the time period is included. Sodium, Urine 52 mmol/L 03/07/2025 11:10 PM EDT [facility] Urine Urine specimen obtained by clean catch procedure / Unknown Non-blood Collection / Unknown 03/07/2025 9:27 PM EDT 03/07/2025 9:50 PM EDT us Harish Baer MD LAB URINE ORDERABLES Final Resu lt Performing Organization Address [facility]/ZIP Co de Phone Number [facility] [address] [place] [address] * Protein, Random, Urine with Creatinine (03/07/2025 9:27 PM EDT) Only the most recent of2 resultswithin the time period is included. Protein, Urine 914 mg/dL 03/07/2025 11:34 PM EDT [facility] Creatinine, Urine 86 mg/dL 03/07/2025 11:34 PM EDT [facility] Protein/Creatin ine Ratio 10.6 mg/mg Creat 03/07/2025 11:34 PM EDT [facility] Urine Urine specimen obtained by clean catch procedure / Unknown Non-blood Collection / Unknown 03/07/2025 9:27 PM EDT 03/07/2025 9:50 PM EDT us Harish Baer MD LAB URINE ORDERABLES Final Resu lt Performing Organization Address [facility] Co de Phone Number [facility] [address] [place] [address] * Potassium, Random, Urine (03/07/2025 9:27 PM EDT) Potassium, Urine 30 mmol/L 03/07/2025 11:10 PM EDT [facility] Urine Urine specimen obtained by clean catch procedure / Unknown Non-blood Collection / Unknown 03/07/2025 9:27 PM EDT 03/07/2025 9:50 PM EDT us Harish Baer MD LAB URINE ORDERABLES Final Resu lt Performing Organization Address [facility]/ZIP Co de Phone Number [facility] [address] [place] [address] * Osmolality, Urine (03/07/2025 9:27 PM EDT) Osmolality, Urine 402 50 - 1,200 mOsm/kg 03/07/2025 10:26 PM EDT [facility] Urine Urine specimen obtained by clean catch procedure / Unknown Non-blood Collection / Unknown 03/07/2025 9:27 PM EDT 03/07/2025 9:50 PM EDT Harish Baer MD LAB URINE ORDERABLES Final Resu lt Performing Organization Address [facility]/ZIP Co de Phone Number [facility] [address] [place] [address] * Chloride, Random Urine (03/07/2025 9:27 PM EDT) Chloride, Urine 46 mmol/L 11:10 PM EDT [facility] Urine Urine specimen obtained by clean catch procedure / Unknown Non-blood Collection / Unknown 03/07/2025 9:27 PM EDT 03/07/2025 9:50 PM EDT Harish Baer MD LAB URINE ORDERABLES Final Resu lt Performing Organization Address [facility] Co de Phone Number [facility] [address] [place] [address] * US Renal Complete (03/07/2025 7:11 PM [...] on 03/07/2025 7:19 PM Harish Baer MD [facility] US PROCEDURES Final Result * ECHO, ADULT [...] Ao Diam 36 mm REILLY ISCV PA WI(ACCEL) 47.9 mmHg REILLY ISCV LV mean PG [...] 55 mL REILLY ISCV LAV(MOD-2ch) 48 mL ERILLY ISCV Anatomical Region Laterality Modality Echocardiography Narrative [...] is no recent study available for direct [id number] comparison. Left Ventricle The left ventricle is [...] is no recent study available for direct [id number] comparison. us Floyd Quezada APRN CV ECHO PROCEDURES Final Resu lt * (ABNORMAL) Blood gas panel, venous (03/07/2025 4:43 AM EDT) pH, Venous 7.39 7.32 - 7.43 LAB HEMATOLOGY METHOD 03/07/2025 4:52 AM EDT [facility] pCO2, Venous 30(L) 40 - 55 mmHg LAB HEMATOLOGY METHOD 03/07/2025 4:52 AM EDT [facility] pO2, Venous 59(H) 25 - 40 mmHg LAB HEMATOLOGY METHOD 03/07/2025 4:52 AM EDT [facility] SO2, Measured, Venous 91(H) 65 - 80 % LAB HEMATOLOGY METHOD 03/07/2025 4:52 AM EDT [facility] Base Excess, Venous -6.1(L) -2.0 - 3.0 mmol/L LAB HEMATOLOGY METHOD 03/07/2025 4:52 AM EDT [facility] Bicarbonate, Calculated, Venous 18(L) 22 - 26 mmol/L LAB HEMATOLOGY METHOD 03/07/2025 4:52 AM EDT [facility] Hematocrit, Whole Blood 29.9(L) 40.0 - 51.0 % LAB HEMATOLOGY METHOD 03/07/2025 4:52 AM EDT [facility] Sodium, Whole Blood 136 136 - 145 mmol/L LAB HEMATOLOGY METHOD 03/07/2025 4:52 AM EDT [facility] Potassium, Whole Blood 4.0 3.6 - 4.9 mmol/L LAB HEMATOLOGY METHOD 03/07/2025 4:52 AM EDT [facility] Chloride, Whole Blood 111(H) 97 - 107 mmol/L LAB HEMATOLOGY METHOD 03/07/2025 4:52 AM EDT [facility] Glucose, Whole Blood 156(H) 74 - 99 mg/dL LAB HEMATOLOGY METHOD 03/07/2025 4:52 AM EDT [facility] Lactate, Venous, Whole Blood 0.9 0.5 - 2.2 mmol/L LAB HEMATOLOGY METHOD 03/07/2025 4:52 AM EDT [facility] Ionized Calcium, Whole Blood 4.4(L) 4.6 - 5.1 mg/dL LAB HEMATOLOGY METHOD 03/07/2025 4:52 AM EDT [facility] Blood Venous blood specimen / Unknown Venipuncture / Unknown 03/07/2025 4:43 AM EDT 03/07/2025 4:50 AM EDT us Floyd Quezada [employer] LAB BLOOD ORDERABLES Final Re sult [facility] [address] [place] [address] * Ferritin, Serum (03/07/2025 4:43 AM EDT) Ferritin, Serum 132 20 - 400 ng/mL 03/07/2025 5:41 AM EDT [facility] Blood Venous blood specimen / Unknown Venipuncture / Unknown 03/07/2025 4:43 AM EDT 03/07/2025 4:56 AM EDT us Floyd Quezada [employer] LAB BLOOD ORDERABLES Final Re sult [facility] [address] [place] [address] * (ABNORMAL) Renal Function Panel, Plasma (03/07/2025 4:43 AM EDT) Glucose, Plasma 170(H) 74 - 99 mg/dL 03/07/2025 5:26 AM EDT [facility] BUN, Plasma 37(H) 8 - 23 mg/dL 03/07/2025 5:26 AM EDT [facility] Creatinine, Plasma 3.38(H) 0.70 - 1.20 mg/dL 03/07/2025 5:26 AM EDT [facility] BUN/Creatinine Ratio 11 03/07/2025 5:26 AM EDT [facility] Sodium, Plasma 140 136 - 145 mmol/L 03/07/2025 5:26 AM EDT [facility] Potassium, Plasma 4.3 3.6 - 4.9 mmol/L 03/07/2025 5:26 AM EDT [facility] Chloride, Plasma 111(H) 97 - 107 mmol/L 03/07/2025 5:26 AM EDT [facility] CO2, Plasma 16(L) 22 - 29 mmol/L 03/07/2025 5:26 AM EDT [facility] Anion Gap 13 6 - 16 mmol/L 03/07/2025 5:26 AM EDT [facility] Total Calcium, Plasma 7.6(L) 8.9 - 10.2 mg/dL 03/07/2025 5:26 AM EDT [facility] Phosphorus, Plasma 3.3 2.5 - 4.5 mg/dL 03/07/2025 5:26 AM EDT [facility] Albumin, Plasma 2.0(L) 3.5 - 5.2 g/dL 03/07/2025 5:26 AM EDT [facility] eGFRcr 17.3 mL/min/1.7 3m*2 03/07/2025 5:26 AM EDT [facility] Comment:Reported eGFRcr in m L/min/1.73m2 is based the CKD-EPI 2020 equation that does not use a race coefficient. Blood Venous blood specimen / Unknown Venipuncture / Unknown 03/07/2025 4:43 AM EDT 03/07/2025 4:56 AM EDT Floyd Quezada APRN LAB BLOOD ORDERABLES Final Re sult [facility] [address] [place] [address] * ECG Adult (03/07/2025 3:48 AM EDT) Only the most recent of3 resultswithin the time period is included. EKG DIAGNOSIS CLASS Abnormal MUSE ECG Ventricular Rate 98 BPM MUSE ECG Atrial Rate 98 BPM MUSE ECG WI Interval 180 ms MUSE ECG QRSD Interval 84 ms MUSE ECG QT Interval 340 ms MUSE ECG QTC Interval 434 ms MUSE ECG P [place] 56 degrees MUSE ECG R [place] -43 degrees MUSE ECG T Wave [place] 63 degrees MUSE ECG Diagnosis Sinus rhythm with premature supraventricular complexes MUSE ECG Diagnosis Left axis deviation MUSE ECG Diagnosis Poor R-wave progression MUSE ECG Diagnosis Abnormal ECG MUSE ECG Diagnosis MUSE ECG Diagnosis Confirmed by Yoan Connors ([id number]) on 03/07/2025 5:41:06 AM MUSE ECG 03/07/2025 [...] ORDERABLES Final Re sult Performing Organization Address City/[facility]/ZIP Co de Phone Number [facility] [address] [place] [address] * Drug Abuse Screen, Urine (03/07/2025 2:00 AM EDT) Amphetamine Screen Urine Negative Cutoff: 500 ng/mL 03/07/2025 2:48 AM EDT [facility] Benzodiazepines Screen Urine Negative Cutoff: 200 ng/mL 03/07/2025 2:48 AM EDT [facility] Cannabinoid Screen Urine Negative Cutoff: 50 ng/mL 03/07/2025 2:48 AM EDT [facility] Cocaine Screen Urine Negative Cutoff: 300 ng/mL 03/07/2025 2:48 AM EDT [facility] Barbiturate Screen Urine Negative Cutoff: 200 ng/mL 03/07/2025 2:48 AM EDT [facility] Opiate Screen Urine Negative Cutoff: 300 ng/mL 03/07/2025 2:48 AM EDT [facility] Methadone Screen Urine Negative Cutoff: 300 ng/mL 03/07/2025 2:48 AM EDT [facility] Buprenorphine Screen Urine Negative Cutoff: 10 ng/mL 03/07/2025 2:48 AM EDT [facility] Fentanyl Screen Urine Negative Cutoff: 1 ng/mL 03/07/2025 2:48 AM EDT [facility] Oxycodone Screen Urine Negative Cutoff: 100 ng/mL 03/07/2025 2:48 AM EDT [facility] Urine Urine specimen obtained by clean catch procedure / Unknown Non-blood Collection / Unknown 03/07/2025 2:00 AM EDT 03/07/2025 2:16 AM EDT us Floyd Quezada APRN LAB URINE ORDERABLES Final Re sult Performing Organization Address City/[facility]/ZIP Co de Phone Number [facility] [address] [place] [address] * (ABNORMAL) Urinalysis with reflex microscopic (Culture NOT Included) (03/07/2025 2:00 AM EDT) Color, Urine Yellow LAB URINALYSIS - AUTOMATED METHOD 03/07/2025 2:31 AM EDT [facility] Clarity, Urine Clear LAB URINALYSIS - AUTOMATED METHOD 03/07/2025 2:31 AM T [facility] Spec [place], Urine 1.023 1.005 - 1.030 LAB URINALYSIS - AUTOMATED METHOD 03/07/2025 2:31 AM T [facility] pH, Urine 6.5 5.0 - 8.0 LAB URINALYSIS - AUTOMATED METHOD 03/07/2025 2:31 AM T [facility] Protein, Urine >=300(A) Negative mg/dL LAB URINALYSIS - AUTOMATED METHOD 03/07/2025 2:31 AM T [facility] Glucose, Urine >=1000(A) Negative mg/dL LAB URINALYSIS - AUTOMATED METHOD 03/07/2025 2:31 AM T [facility] Ketones, Urine Negative Negative mg/dL LAB URINALYSIS - AUTOMATED METHOD 03/07/2025 2:31 AM T [facility] Blood, Urine Small(A) Negative LAB URINALYSIS - AUTOMATED METHOD 03/07/2025 2:31 AM T [facility] Bilirubin, Urine Negative Negative LAB URINALYSIS - AUTOMATED METHOD 03/07/2025 2:31 AM T [facility] Urobilinogen, Urine 0.2 0.2 to 1.0 mg/dL LAB URINALYSIS - AUTOMATED METHOD 03/07/2025 2:31 AM T [facility] Leukocytes, Urine Negative Negative LAB URINALYSIS - AUTOMATED METHOD 03/07/2025 2:31 AM T [facility] Nitrite, Urine Negative Negative LAB URINALYSIS - AUTOMATED METHOD 03/07/2025 2:31 AM T [facility] RBC, Urine 3 0 to 3 /HPF LAB URINALYSIS - AUTOMATED METHOD 03/07/2025 2:31 AM T [facility] Comment:This result was prev iously suppressed from the chart. WBC, Urine 0 - 5 0 to 5 /HPF LAB URINALYSIS - AUTOMATED METHOD 03/07/2025 2:31 AM EDT [facility] Comment:This result was prev iously suppressed from the chart. Squamous Epithelial Cells 0 - 2 0 to 5 /HPF LAB URINALYSIS - AUTOMATED METHOD 03/07/2025 2:31 AM EDT [facility] Comment:This result was prev iously suppressed from the chart. Hyaline Casts 0 - 2 0 to 5 /LPF LAB URINALYSIS - AUTOMATED METHOD 03/07/2025 2:31 AM EDT [facility] Comment:This result was prev iously suppressed from the chart. Bacteria, Urine Negative Negative LAB URINALYSIS - AUTOMATED METHOD 03/07/2025 2:31 AM EDT [facility] Comment:This result was prev iously suppressed from the chart. Urine Urine specimen obtained by clean catch procedure / Unknown Non-blood Collection / Unknown 03/07/2025 2:00 AM EDT 03/07/2025 2:06 AM EDT Floyd Quezada APRN LAB URINE ORDERABLES Final Re sult [facility] [address] [place] [address] * SARS CoV-2/COVID-19 by PCR - Rapid (03/07/2025 12:12 AM EDT) SARS CoV-2/COVID-1 9 RNA PCR Result Not Detected Not Detected 03/07/2025 1:54 AM EDT [facility] Swab Nasopharyngeal structure / Unknown Non-blood Collection / Unknown 03/07/2025 12:12 AM EDT 03/07/2025 1:00 AM EDT Narrative [facility] - 03/07/2025 1:54 AM EDT [...] GENERAL ORDERABLES Final Result Performing Organization Address City/[facility]/ZIP Co de Phone Number [facility] [address] [place] [address] * Nasopharyngeal Respiratory Panel (03/07/2025 12:12 AM EDT) Nasopharyngeal Respiratory PCR Interpretation Not Detected for all analytes Not Detected for all analytes 03/07/2025 3:04 AM EDT [facility] Swab Nasopharyngeal structure / Unknown Non-blood Collection / Unknown 03/07/2025 12:12 AM EDT 03/07/2025 1:00 AM EDT Narrative [facility] - 03/07/2025 3:04 AM EDT [...] Respiratory PCR Panel is performed using the [employer] instrument. This test is FDA approved for use with Nasopharyngeal swabs only. This test is used for clinical purposes. It should not be regarded as investigational or for research. [facility] Clinical [facility]biology [facility] is certified under the Clinical Laboratory Improvement Amendments of 1988 (CLIA-88) as qualified to perform high complexity clinical laboratory testing. Juan Chapman MD LAB MICROBIOLOGY - GENERAL ORDERABLES Final Result Performing Organization Address [facility]/ZIP Co de Phone Number [facility] [address] [place] [address] * (ABNORMAL) Troponin T, High Sensitivity, 2 Hour, Plasma (03/06/2025 10:05 PM EDT) Troponin T, High Sensitivity, 2 Hour 70(H) <19 ng/L 03/06/2025 10:31 PM EDT [facility] Troponin Delta 6 <10 ng/L 03/06/2025 10:31 PM EDT [facility] Troponin Delta Interpretation Not Significant 03/06/2025 10:31 PM EDT [facility] Comment:Not Significant. No acute change in troponin observed between the baseline and 2 hour samples. Blood Venous blood specimen / Unknown Venipuncture / Unknown 03/06/2025 10:05 PM EDT 03/06/2025 10:11 PM EDT us Nabor Tam MD LAB BLOOD ORDERABLES Final Resul t Performing Organization Address [facility] [place] [address] * (ABNORMAL) Anti Xa Level Unfractionated Heparin (03/06/2025 8:26 PM EDT) Anti Xa Level Unfractionated Heparin >1.10(HH) <1.00 IU/mL 03/06/2025 8:41 PM EDT [facility] Blood Venous blood specimen / Unknown Venipuncture / Unknown 03/06/2025 8:26 PM EDT 03/06/2025 8:27 PM EDT Narrative [facility] - 03/06/2025 8:41 PM EDT Therapeutic Range: UFH Full Dose and ACS/IN protocols*: 0.30 - 0.70 IU/mL UFH Low Dose protocol*: 0.25 - 0.50 IU/mL UFH prophylaxis: Not established us Naobr Tam MD LAB BLOOD ORDERABLES Final Resul t Performing Organization Address [facility] Co de Phone Number [facility] [address] [place] [address] * XR Chest 1 View (03/06/2025 8:04 [...] 76(H) <19 ng/L 03/06/2025 8:35 PM EDT [facility] Blood Venous blood specimen / Unknown Venipuncture / Unknown 03/06/2025 7:57 PM EDT 03/06/2025 8:02 PM EDT us Nabor Tam MD LAB BLOOD ORDERABLES Final Resul t Performing Organization Address [facility] Co de Phone Number [facility] [address] [place] [address] * Lactic acid, venous (03/06/2025 7:57 PM EDT) Lactate, Venous, Whole Blood 2.2 0.5 - 2.2 mmol/L LAB HEMATOLOGY METHOD 03/06/2025 8:04 PM EDT [facility] Blood Venous blood specimen / Unknown Venipuncture / Unknown 03/06/2025 7:57 PM EDT 03/06/2025 8:03 PM EDT us Nabor Tam MD LAB BLOOD ORDERABLES Final Resul t Performing Organization Address [facility] Co de Phone Number [facility] [address] [place] [address] * (ABNORMAL) BNP (03/06/2025 7:57 PM EDT) N-Terminal, PROBNP, Plasma 2,403(H) 0 - 1,799 pg/mL 03/06/2025 8:38 PM EDT [facility] Blood Venous blood specimen / Unknown Venipuncture / Unknown 03/06/2025 7:57 PM EDT 03/06/2025 8:02 PM EDT Result Tan Tam MD LAB BLOOD ORDERABLES Final Resul t Performing Organization Address [facility] Co de Phone Number [facility] [address] [place] [address] * (ABNORMAL) CBC w/diff (03/06/2025 7:57 PM EDT) WBC Count 6.29 3.70 - 10.30 10*3/uL LAB HEMATOLOGY METHOD 03/06/2025 8:05 PM EDT [facility] RBC Count 3.78(L) 4.60 - 6.10 10*6/uL LAB HEMATOLOGY METHOD 03/06/2025 8:05 PM EDT [facility] HGB 11.3(L) 13.7 - 17.5 g/dL LAB HEMATOLOGY METHOD 03/06/2025 8:05 PM EDT [facility] HCT 34.7(L) 40.0 - 51.0 % LAB HEMATOLOGY METHOD 03/06/2025 8:05 PM EDT [facility] Platelet Count 198 155 - 369 10*3/uL LAB HEMATOLOGY METHOD 03/06/2025 8:05 PM EDT [facility] MCV 92 79 - 98 fL LAB HEMATOLOGY METHOD 03/06/2025 8:05 PM EDT [facility] MCH 29.9 26.0 - 32.0 pg LAB HEMATOLOGY METHOD 03/06/2025 8:05 PM EDT [facility] MCHC 32.6 30.7 - 35.5 g/dL LAB HEMATOLOGY METHOD 03/06/2025 8:05 PM EDT [facility] RDW 13.2 11.5 - 14.5 % LAB HEMATOLOGY METHOD 03/06/2025 8:05 PM EDT [facility] MPV 10.0 8.8 - 12.5 fL LAB HEMATOLOGY METHOD 03/06/2025 8:05 PM EDT [facility] nRBC 0.0 <=0.0 per 100 WBCs LAB HEMATOLOGY METHOD 03/06/2025 8:05 PM EDT [facility] Differential Type Automated LAB HEMATOLOGY METHOD 03/06/2025 8:05 PM EDT [facility] Neutrophils % 67 % LAB HEMATOLOGY METHOD 03/06/2025 8:05 PM EDT [facility] Lymphocytes % 18 % LAB HEMATOLOGY METHOD 03/06/2025 8:05 PM EDT [facility] Monocytes % 12 % LAB HEMATOLOGY METHOD 03/06/2025 8:05 PM EDT [facility] Eosinophils % 1 % LAB HEMATOLOGY METHOD 03/06/2025 8:05 PM EDT [facility] Basophils % 1 % LAB HEMATOLOGY METHOD 03/06/2025 8:05 PM EDT [facility] Immature Granulocytes % 1 % LAB HEMATOLOGY METHOD 03/06/2025 8:05 PM EDT [facility] Neutrophils Absolute 4.23 1.60 - 6.10 10*3/uL LAB HEMATOLOGY METHOD 03/06/2025 8:05 PM EDT [facility] Lymphocytes Absolute 1.13(L) 1.20 - 3.90 10*3/uL LAB HEMATOLOGY METHOD 03/06/2025 8:05 PM EDT [facility] Monocytes Absolute 0.78 0.30 - 0.90 10*3/uL LAB HEMATOLOGY METHOD 03/06/2025 8:05 PM EDT [facility] Eosinophils Absolute 0.07 0.00 - 0.50 10*3/uL LAB HEMATOLOGY METHOD 03/06/2025 8:05 PM EDT [facility] Basophils Absolute 0.03 0.00 - 0.10 10*3/uL LAB HEMATOLOGY METHOD 03/06/2025 8:05 PM EDT [facility] Immature Granulocytes Absolute 0.05 0.00 - 0.06 10*3/uL LAB HEMATOLOGY METHOD 03/06/2025 8:05 PM EDT [facility] Blood Venous blood specimen / Unknown Venipuncture / Unknown 03/06/2025 7:57 PM EDT 03/06/2025 8:02 PM EDT Narrative [facility] - 03/06/2025 8:05 PM EDT Therapeutic decision making should be based on absolute values, rather than percentages. us Nabor Tam MD LAB BLOOD ORDERABLES Final Resul t [facility] [address] [place] [address] * Thyroid Stimulating Hormone, Plasma (03/06/2025 7:57 PM EDT) Thyroid Stimulating Hormone, Plasma 0.96 0.40 - 4.20 uIU/mL 03/06/2025 8:38 PM EDT [facility] Blood Venous blood specimen / Unknown Venipuncture / Unknown 03/06/2025 7:57 PM EDT 03/06/2025 8:02 PM EDT us Nabor Tam MD LAB BLOOD ORDERABLES Final Resul t Performing Organization Address City/[facility]/ZIP Co de Phone Number [facility] [address] [place] [address] * Free T4, Plasma (03/06/2025 7:57 PM EDT) Free T4, Plasma 1.2 0.8 - 1.7 ng/dL 03/06/2025 8:35 PM EDT [facility] Blood Venous blood specimen / Unknown Venipuncture / Unknown 03/06/2025 7:57 PM EDT 03/06/2025 8:02 PM EDT us Nabor Tam MD LAB BLOOD ORDERABLES Final Resul t Performing Organization Address [facility] Co de Phone Number [facility] [address] [place] [address] * Lipase (03/06/2025 7:57 PM EDT) Lipase, Plasma 28 19 - 63 U/L 03/06/2025 8:38 PM EDT [facility] Blood Venous blood specimen / Unknown Venipuncture / Unknown 03/06/2025 7:57 PM EDT 03/06/2025 8:02 PM EDT us Nabor Tam MD LAB BLOOD ORDERABLES Final Resul t Performing Organization Address [facility] Co de Phone Number [facility] [address] [place] [address] * (ABNORMAL) Hemoglobin A1c (03/06/2025 7:57 PM EDT) Hemoglobin A1c 9.3(H) <5.7 % 03/07/2025 12:02 PM EDT [facility] Blood Venous blood specimen / Unknown Venipuncture / Unknown 03/06/2025 7:57 PM EDT 03/06/2025 8:02 PM EDT Narrative [facility] - 03/07/2025 12:02 PM EDT HA1C Interpretive Data: Diagnosis of Diabetes: Diabetic > or = 6.5% Pre-diabetic 5.7 to 6.4% Non-diabetic < or = 5.6% Glycemic Targets for Type I and Type II Diabetics: Non- Adults <7.0% Adults <6.0% Children and Adolescents <7.5% Source: [place] [employer]. Standards of medical care in diabetes,2017. Diabetes Care.2017:40 (suppl 1):S1-S135. us Floyd Quezada DIRECTOR OF [employer] LAB BLOOD ORDERABLES Final Re sult [facility] [address] [place] [address] * (ABNORMAL) POCT arterial blood gas gem (03/06/2025 7:48 PM EDT) pH, Arterial 7.31 7.31 - 7.42 03/06/2025 7:50 PM EDT [facility] pCO2, Arterial 31(L) 32 - 45 mm Hg 03/06/2025 7:50 PM EDT [facility] pO2, Arterial 30(LL) >60 mm Hg 03/06/2025 7:50 PM EDT [facility] SO2, Arterial 55(L) 94 - 98 % 03/06/2025 7:50 PM EDT [facility] FIO2 100.0 % 03/06/2025 7:50 PM EDT [facility] Base Excess, Arterial -9.5(L) -2 - 3 mmol/L 03/06/2025 7:50 PM EDT [facility] HCO3, Arterial 15.6(L) 22 - 26 mmol/L 03/06/2025 7:50 PM EDT [facility] Total Hemoglobin, Arterial, Whole Blood 12.9(L) 13.7 - 17.5 g/dL 03/06/2025 7:50 PM EDT [facility] Hematocrit, Arterial 39.0(L) 40 - 51.0 % 03/06/2025 7:50 PM EDT [facility] Sodium, Arterial 134(L) 136 - 145 mmol/L 03/06/2025 7:50 PM EDT [facility] Potassium, Arterial 4.3 3.6 - 4.9 mmol/L 03/06/2025 7:50 PM EDT [facility] Comment:Hemolyzed, result ma y be falsely increased. Chloride, Whole Blood 107 97 - 107 mmol/L 03/06/2025 7:50 PM EDT [facility] Glucose, Arterial 178(H) 74 - 99 mg/dL 03/06/2025 7:50 PM EDT [facility] Ionized Calcium, Arterial 4.5(L) 4.6 - 5.1 mg/dL 03/06/2025 7:50 PM EDT [facility] Lactate, Arterial 2.3(H) 0.5 - 1.6 mmol/L 03/06/2025 7:50 PM EDT [facility] Body Temperature 37.0 Celsius 03/06/2025 7:50 PM EDT [facility] pH, Temp Corrected, Arterial 7.31 7.31 - 7.42 03/06/2025 7:50 PM EDT [facility] pCO2, Temp Corrected, Arterial 31(L) 32 - 45 mm Hg 03/06/2025 7:50 PM EDT [facility] pO2, Temp Corrected, Arterial 30(LL) >60 mm Hg 03/06/2025 7:50 PM EDT [facility] Marine Superintendent ID Robina Álvarez 03/06/2025 7:50 PM EDT [facility] Acknowledged, Notified By RN 64 03/06/2025 7:50 PM EDT [facility] Critical Notify Time 194803/06/2025 7:50 PM EDT [facility] Critical Readback Y 03/06/2025 7:50 PM EDT [facility] Blood, Arterial Whole blood specimen / Unknown 03/06/2025 7:48 PM EDT 03/06/2025 7:50 PM EDT us Nabor Tam MD LAB POINT OF CARE TE ST DOCKED DEVICE UNSOLICITED RESULTS Final Result [facility] [address] [place] [address] * Light Green Top (03/06/2025 7:47 PM EDT) Extra Hold for add-ons 03/06/2025 11:01 PM EDT [facility] Comment:Auto resulted. Blood Venous blood specimen / Unknown 03/06/2025 7:47 PM EDT 03/06/2025 8:02 PM EDT us Nabor Tam MD LAB BLOOD ORDERABLES Final Resul t [facility] [address] [place] [address] * [place] [facility], E/M 30-74 MINUTES (03/06/2025 7:17 [...] updated to appropriate status: Yes Care Teams Tracer Bullet Charging Machine Operator Relationship Specialty Start Date End Date Pcp, No [address] [place] [address] PCP - General Family Medicine 03/06/25
--- OUTSIDE RECORDS SUMMARY | 2025-05-02 11:06 | XMS_ITS | Encounter Summary ---
Author Organization Healthcare Address [address] [id number] Care Team Providers Care Aircraft Communicator Name Role Phone Pcp, No Primary Care [...] were you homeless or living in a snf (including now)? No 03/07/2025 [facility] Utilities Answer Date Recorded In the [...] documented as of this encounter Care Teams Aircraft Communicator Relationship Specialty Start Date End Date Pcp, No [address] [place] [address] PCP - General Family Medicine 03/06/25 documented as of this encounter
--- OUTSIDE RECORDS SUMMARY | 2025-05-02 11:06 | XMS_ITS | Encounter Summary ---
Author Organization Healthcare Address [address] [id number] Care Team Providers Care Wireless Construction Manager Name Role Phone Pcp, No Primary Care [...] any time in the past [address] [facility], were you homeless or living in a correction (including now)? No 03/07/2025 [place] Utilities Answer Date Recorded In the past [...] documented as of this encounter Care Teams Wireless Construction Manager Relationship Specialty Start Date End Date Pcp, No [address] [place] [address] PCP - General Family Medicine 03/06/25 documented as of this encounter
--- OUTSIDE RECORDS SUMMARY | 2025-05-02 11:06 | XMS_ITS | Encounter Summary ---
Author Organization Healthcare Address [address] [id number] Care Team Providers Care Facing Grinder Name Role Phone Pcp, No Primary Care [...] any time in the past 12 m [facility], were you homeless or living in a halfway (including now)? No 03/07/[address] [facility] Utilities Answer Date Recorded In the [...] documented as of this encounter Care Teams Facing Grinder Relationship Specialty Start Date End Date Pcp, No [address] [place] [address] PCP - General Family Medicine 03/06/25 documented as of this encounter
--- OUTSIDE RECORDS SUMMARY | 2025-05-02 11:06 | XMS_ITS | Encounter Summary ---
Author Organization Healthcare Address [address] [place] [address] Care Team Providers Care Lamp Mechanic Name Role Phone Pcp, No Primary Care Provider Unavailabl e Encounter Details Date Type Department Care Team (Late st Contact Info) Description 04/01/2025 Telephone [facility] [address] [place] [address] Sybil Segura RN AMB-CHEMO INFUSION [...] any time in the past 12 m [facility], were you homeless or living in a fdc (including now)? No 03/07/2025 [facility] Utilities Answer Date Recorded In [...] documented as of this encounter Care Teams Lamp Mechanic Relationship Specialty Start Date End Date Pcp, No [address] [place] [address] PCP - General Family Medicine 03/06/25 documented as of this encounter
[2025-05-02 11:39] LABS: Hematocrit 30.7 % (42.0-52.0); Hemoglobin 9.6 g/dL (14.1-18.0); Immature Granulocytes % 0.4 %; Mean Corpuscular HGB Conc 31.3 g/dL (31.8-35.4); Mean Corpuscular Hemoglobin 29.7 pg (27.0-31.2); Mean Corpuscular Volume 95.0 fl (80-94); Nucleated Red Blood Cells % 0 %; Platelet Count 213 K/mm3 (142-424); Red Blood Count 3.23 M/mm3 (4.60-6.20); Red Cell Distribution Width-SD 51.4 fL; White Blood Count 7.5 K/mm3 (4.8-10.8)
[2025-05-02 12:06] LABS: Alanine Aminotransferase 9 U/L (12-78); Albumin Level 2.8 g/dl (3.5-5.0); Alkaline Phosphatase 110 U/L (38-126); Anion Gap 6.4 mEq/L (5-15); Aspartate Amino Transferase 21 U/L (17-59); Bilirubin,Direct 0.1 mg/dl (0.0-0.4); Bilirubin,Indirect 0.4 mg/dL (0.0-0.9); Bilirubin,Total 0.5 mg/dl (0.2-1.3); Bilirubin,Unconjugated 0.4 mg/dL (0.0-1.1); Blood Urea Nitrogen 41 mg/dl (9-20); Calcium 8.5 mg/dl (8.4-10.2); Carbon Dioxide 21 mmol/L (22.0-30.0); Chloride 110 mmol/L (98-107); Cholesterol 163 mg/dl (140-200); Creatinine,Serum 3.40 mg/dl (0.66-1.25); Estimated Glomerular Filt Rate 17 ml/min (>60); GFR (African American) 21 ML/MIN (>60); Glucose 167 mg/dl (74-100); HDL Cholesterol 61 mg/dl (40-60); Magnesium 1.5 mg/dl (1.6-2.3); Potassium 4.4 mmoL/L (3.5-5.1); Sodium 133 mmol/L (136-145); Total Protein,Serum 5.3 g/dl (6.3-8.2); Triglycerides 158 mg/dl (30-150)
[2025-05-02 12:23] LABS: Free T4 (Free Thyroxine) 1.17 ng/dl (0.78-2.19)
[2025-05-02 12:39] LABS: Thyroid Stimulating Hormone 1.03 uIU/mL (0.465-4.68)
== END 2025-05-02 23:59 | disposition home or self-care (01) ==
LOC: LAB 10:43
PROVIDERS: PCP Family Medicine; Visit Provider Internal Medicine
DX: E78.49 Other hyperlipidemia (principal); I10 Essential (primary) hypertension
CPT/HCPCS: 36415; 80048; 80061; 80076; 83735; 84439; 84443; 85025